=== PATIENT | male | born 1955 | race Hispanic/Latino ===

== ENCOUNTER 2017-01-18 14:31 | Emergency (ER) | payer BC, MEDICARE ==
[2017-01-18 14:31] VITALS: BMI 22.6
--- NOTE | 2017-01-18 15:33 | ED PDOC ---
Arrival/HPI - General Chief Complaint: Trauma Time Seen by Provider: 01/18/17 14:36 Historian: Patient - History of Present Illness Narrative History of Present Illness (Text): 01/18/17 15:15 A 61 year old male, whose past medical history includes CVA and anxiety, presents to the emergency department complaining of multiple falls for past several days. Patient reports he fell onto right side, injuring right wrist. Patient notes he began experiencing right sided-weakness, multiple contractions , and tingling to right arms and hands. Patient also has healing bed sore. Denies of any fever, chills, nausea, vomiting, abdominal pain, chest pain, shortness of breath, cough, leg pain, hip pain, knee pain, or any other complaints. Also, patient mentions he does not take any bloodthinners and is a frequent smoker. Patient mentions also having nurse aide that visits his home, and sometimes his son comes, but normally during the evening. PMD: Dr. Capps Time/Duration: < week (several days) Past Medical History - Provider Review Nursing Documentation Reviewed: Yes - Infectious Disease Hx of Infectious Diseases: None - Tetanus Immunization Tetanus Immunization: Unknown - Past Medical History Past Medical History: No Previous - Cardiac Hx Cardiac Disorders: No - Pulmonary Hx Respiratory Disorders: Yes Other/Comment: SMOKER - Neurological HX Cerebrovascular Accident: Yes - HEENT Hx HEENT Disorder: No - Renal Hx Renal Disorder: No - Endocrine/Metabolic Hx Endocrine Disorders: No - Hematological/Oncological Hx Blood Disorders: No - Integumentary Hx Dermatological Disorder: Yes Other/Comment: MULTIPLE ABRASIONS - Musculoskeletal/Rheumatological Hx Back Pain: Yes Hx Unsteady Gait: Yes - Gastrointestinal Hx Gastrointestinal Disorders: No - Genitourinary/Gynecological Hx Genitourinary Disorders: No - Psychiatric Hx Anxiety: Yes Hx Substance Use: No - Surgical History Hx Orthopedic Surgery: Yes (L ACL) - Anesthesia Hx Anesthesia: No - Suicidal Assessment Feels Threatened In Home Enviroment: No Family/Social History - Physician Review Nursing Documentation Reviewed: Yes Family/Social History: No Known Family HX Smoking Status: Heavy Smoker > 10 Cigarettes Daily Hx Alcohol Use: Yes (2 beers daily) Hx Substance Use: No Allergies/Home Meds Allergies/Adverse Reactions: Allergies Sulfa (Sulfonamide Antibiotics) Allergy (Verified 01/18/17 14:50) RASH Home Medications: Home Meds Medication Instructions Recorded Confirmed Carbamazepine [Carbamazepine] 100 mg PO BID 01/18/17 01/18/17 Cholecalciferol (Vitamin D3) 1 cap PO DAILY 01/18/17 01/18/17 [Vitamin D3] Folic Acid 1 mg PO DAILY 01/18/17 01/18/17 Gabapentin [Neurontin] 300 mg PO HS 01/18/17 01/18/17 Metoprolol Tartrate [Lopressor] 50 mg PO DAILY 01/18/17 01/18/17 Mirtazapine [Remeron] 15 mg PO DAILY 01/18/17 01/18/17 Tamsulosin [Flomax] 1 cap PO DAILY 01/18/17 01/18/17 Thiamine Mononitrate [Vitamin B-1] 1 tab PO DAILY 01/18/17 01/18/17 Venlafaxine [Effexor] 37.5 mg PO DAILY 01/18/17 01/18/17 Review of Systems - Physician Review All systems were reviewed & negative as marked: Yes - Review of Systems Constitutional: absent: Fevers, Other (no head trauma) Respiratory: absent: SOB, Cough Cardiovascular: absent: Chest Pain Gastrointestinal: absent: Abdominal Pain, Nausea, Vomiting Musculoskeletal: Joint Swelling (right wrist injury s/p fall). absent: Back Pain, Neck Pain, Other (no hip pain, leg pain, or knee pain) Neurological: Other (weakness to right side and tingling to right arms and legs) Physical Exam Vital Signs Reviewed: Yes Vital Signs Temp Pulse Resp BP Pulse Ox 01/18/17 18:21 19 97 01/18/17 18:03 75 18 105/69 98 01/18/17 14:58 98.7 F 80 16 107/74 96 Temperature: Afebrile Blood Pressure: Normal Pulse: Regular Respiratory Rate: Normal Appearance: Positive for: Cachectic Pain Distress: None Mental Status: Positive for: Alert and Oriented X 3 - Systems Exam Head: Present: Other (no head trauma) Neck: No: Other (no tenderness) Respiratory/Chest: Present: Wheezes (scattered wheezing) Back: No: Other (no tenderness) Upper Extremity: Present: Normal ROM (right hand), Swelling (right wrist), Other (contractions to left arm; left elbow wound that is dress; multiple abrasions to left arm) Lower Extremity: Present: Normal ROM (hips), Other (contractions to left leg). No: Deformity (no deformity to right wrist) Medical Decision Making ED Course and Treatment: 01/18/17 15:21 Impression: 61 year old male with right wrist injury. Physical exam shows no head trauma; patient appears cachectic; contractions to left leg and arm; full ROM to right hand; tenderness to right wrist but no deformity; full ROM of hips ; scattered wheezing; no tenderness to back/neck; left elbow wound dressed, multiple abrasions to left arm. Plan: -- Right Wrist X-Ray -- Labs -- Urinalysis -- Urine Culture -- Rehab Services -- Reassess and disposition Prior Visits: Notes and results from previous visits were reviewed. Patient was last seen in the emergency department on 03/07/2014 for left-sided weakness. Patient was admitted. Progress Notes: 01/18/2017 15:46 Right Wrist X-Ray IMPRESSION: Normal right wrist radiographs. Dictator: Matthew Beard MD - Lab Interpretations Lab Results: 01/18/17 15:22 01/18/17 15:22 Lab Results 01/18/17 15:22: Prealbumin 22.5 01/18/17 15:22: Sodium 135, Potassium 4.1, Chloride 99, Carbon Dioxide 30, Anion Gap 10, BUN 12, Creatinine 0.5 L, Est GFR ( Amer) > 60, Est GFR ( Non-Af Amer) > 60, Random Glucose 99, Calcium 8.8, Total Bilirubin 0.6, AST 20, ALT 24, Alkaline Phosphatase 143 H, Total Protein 6.7, Albumin 3.7, Globulin 3.0 , Albumin/Globulin Ratio 1.2 01/18/17 15:22: APTT 30.4 01/18/17 15:22: WBC 10.1 D, RBC 3.35 L, Hgb 9.5 L, Hct 30.4 L, MCV 90.7, MCH 28.4, MCHC 31.3, RDW 16.5 H, Plt Count 341, MPV 9.6, Gran % 68.5 H, Lymph % ( Auto) 19.6 L, [place] % (Auto) 10.9 H, Eos % (Auto) 0.9 L, Baso % (Auto) 0.1, Gran # 6.90 H, Lymph # 2.0, [place] # 1.1 H, Eos # 0.1, Baso # 0.01 I have reviewed the lab results: Yes - RAD Interpretation Radiology Orders: 01/18/17 15:10 WRIST, RIGHT 3 VIEWS [RAD] Stat - Scribe Statement The provider has reviewed the documentation as recorded by the Scribe Lela Rice Provider Scribe Attestation: All medical record entries made by the Scribe were at my direction and personally dictated by me. I have reviewed the chart and agree that the record accurately reflects my personal performance of the history, physical exam, medical decision making, and the department course for this patient. I have also personally directed, reviewed, and agree with the discharge instructions and disposition. Disposition/Present on Arrival - Present on Arrival Any Indicators Present on Arrival: No History of DVT/PE: No History of Uncontrolled Diabetes: No Urinary Catheter: No History of Decub. Ulcer: No History Surgical Site Infection Following: None - Disposition Have Diagnosis and Disposition been Completed?: Yes Diagnosis: Fall, Wrist injury Disposition: HOME/ ROUTINE Disposition Time: 18:30 Patient Plan: Discharge Condition: IMPROVED Discharge Instructions (ExitCare): Wrist Injury (ED), Fall Prevention for Older Adults (GEN) Additional Instructions: please followup with home health care nursing agency. you should also request a wound care nurse to make recommendations or see a wound care doctor regarding your elbow wound. Referrals: Zoya Capps DO [Primary Care Provider] - Follow up with primary Forms: [facility] (K[place]akh)
[2017-01-18 15:34] VITALS: TEMP 98.7
[2017-01-18 15:34] LABS: BASO # 0.01 K/mm3 (0.0-2.0); BASO % 0.1 % (0.0-3.0); EOS # 0.1 (0.0-0.7); EOS % 0.9 % (1.5-5.0); GRAN # 6.9 (1.4-6.5); GRAN % 68.5 % (50.0-68.0); HEMATOCRIT 30.4 % (42.0-52.0); LYMPH % 19.6 % (22.0-35.0); MEAN CELL VOLUME 90.7 fl (80.0-105.0); MEAN CORPUSCULAR HEMOGLOBIN 28.4 pg (25.0-35.0); MEAN CORPUSCULAR HGB CONC 31.3 g/dl (31.0-37.0); MEAN PLATELET VOLUME 9.6 fl (7.0-11.0); MONO # 1.1 (0.1-0.6); MONO % 10.9 % (1.0-6.0); RED CELL DISTRIBUTION WIDTH 16.5 % (11.5-14.5); WHITE BLOOD COUNT 10.1 10^3/ul (4.5-11.0)
[2017-01-18 15:42] LABS: ALB/GLOB RATIO 1.2 (1.1-1.8); ALKALINE PHOSPHATASE 143 U/L (38-126); ALT/SGPT 24 U/L (7-56); AST/SGOT 20 U/L (17-59); BILIRUBIN,TOTAL 0.6 mg/dL (0.2-1.3); BLOOD UREA NITROGEN 12 mg/dL (7-21); CALCIUM 8.8 mg/dL (8.4-10.5); CARBON DIOXIDE 30 mmol/L (21-33); CHLORIDE 99 mmol/L (98-107); GFR AFRICAN-AMERICAN > 60; GLUCOSE,RANDOM 99 mg/dL (70-110); POTASSIUM 4.1 mmol/L (3.6-5.0); SODIUM 135 mmol/L (132-148); TOTAL PROTEIN 6.7 g/dL (5.8-8.3)
--- NOTE | 2017-01-18 15:48 | RAD ---
PROCEDURE: Right Wrist Radiographs. HISTORY: fall COMPARISON: None. FINDINGS: BONES: Normal. No fracture. JOINTS: Normal. No dislocation. SOFT TISSUES: Normal. OTHER FINDINGS: None. IMPRESSION: Normal right wrist radiographs.
[2017-01-18 18:04] VITALS: BP 105/69; PULSE 75
[2017-01-18 18:22] VITALS: RESP 19; O2SAT 97
== END 2017-01-18 18:21 | disposition home or self-care (01) ==
LOC: ED 14:31
DX: S69.91XA Unspecified injury of right wrist, hand and finger(s), initial encounter (principal); W19.XXXA Unspecified fall, initial encounter; R29.6 Repeated falls; F17.210 Nicotine dependence, cigarettes, uncomplicated; Z86.73 Personal history of transient ischemic attack (TIA), and cerebral infarction without residual deficits

== ENCOUNTER 2017-04-02 15:05 | Inpatient (IN) | payer MEDICARE ==
[2017-04-02 15:17] VITALS: BMI 15.2
[2017-04-02] MEDS ORDERED: Sodium Chloride 0.9% 1,000 ML IV STA (15:38)
[2017-04-02] MEDS ORDERED: Morphine 2 mg/ml ISec IVP STA ×2 (15:39→17:48)
--- NOTE | 2017-04-02 15:44 | ED PDOC ---
Arrival/HPI - General Chief Complaint: GI Problem Time Seen by Provider: 04/02/17 15:29 Historian: Patient, Family (daughter) - History of Present Illness Narrative History of Present Illness (Text): 04/02/17 15:39 61 year old male, whose medical history includes CVA, presents to the emergency department complaining of constant abdominal pain rated a 7/10 for 2 days. Patient also complains of nausea and induces himself to vomit to relieve himself. Since the pain began, the patient reports decreased PO intake. Patient denies any fevers, chills, chest pain, shortness of breath, diarrhea, dark/ bloody stool, headache, dizziness, or any other complaint. Patient also complains of spontaneous spasms of the right knee/leg that began 3 days ago. Patient currently lives with son. While in the emergency department, patient is with daughter, who checks up on him regularly. Patient/family suspect Opioid withdrawal due to last Percocet use being 2 days ago. PMD: Dr. Capps Neurologist: Dr. Ezra Banks 04/02/17 20:40 pt is now wheel chair bound pt with left sided weakness pt lives with his son Time/Duration: < week (2 days) Symptom Onset: Gradual Symptom Course: Unchanged Severity Level: 8, Severe Activities at Onset: Rest Context: Home Past Medical History - Provider Review Nursing Documentation Reviewed: Yes - Travel History Have you recently traveled outside [place] w/in the past 3 mons?: No - Past History Past History: No Previous - Infectious Disease Hx of Infectious Diseases: None - Tetanus Immunization Tetanus Immunization: Unknown - Past Medical History Past Medical History: No Previous - Cardiac Hx Cardiac Disorders: No - Pulmonary Hx Respiratory Disorders: No - Neurological HX Cerebrovascular Accident: Yes - HEENT Hx HEENT Disorder: No - Renal Hx Renal Disorder: No - Endocrine/Metabolic Hx Endocrine Disorders: No - Hematological/Oncological Hx Blood Disorders: No - Integumentary Hx Dermatological Disorder: No Other/Comment: multipleburn areas - Musculoskeletal/Rheumatological Hx Back Pain: Yes Hx Unsteady Gait: Yes Other/Comment: Restless leg syndrome - Gastrointestinal Hx Gastrointestinal Disorders: No - Genitourinary/Gynecological Hx Prostate Problems: Yes - Psychiatric Hx Anxiety: Yes Hx Substance Use: No - Surgical History Hx Orthopedic Surgery: Yes (left knee) - Anesthesia Hx Anesthesia: No - Suicidal Assessment Feels Threatened In Home Enviroment: No Family/Social History - Physician Review Nursing Documentation Reviewed: Yes Family/Social History: Unknown Family HX Smoking Status: Heavy Smoker > 10 Cigarettes Daily Hx Alcohol Use: Yes (2 beers daily) Hx Substance Use: No Hx Substance Use Treatment: No Allergies/Home Meds Allergies/Adverse Reactions: Allergies Sulfa (Sulfonamide Antibiotics) Allergy (Verified 01/18/17 14:50) RASH Home Medications: Home Meds Medication Instructions Recorded Confirmed Carbamazepine [Carbamazepine] 100 mg PO BID 01/18/17 04/02/17 Folic Acid 1 mg PO DAILY 01/18/17 04/02/17 Gabapentin [Neurontin] 300 mg PO HS 01/18/17 04/02/17 Metoprolol Tartrate [Lopressor] 50 mg PO DAILY 01/18/17 04/02/17 Mirtazapine [Remeron] 15 mg PO DAILY 01/18/17 04/02/17 Tamsulosin [Flomax] 1 cap PO DAILY 01/18/17 04/02/17 Venlafaxine [Effexor] 37.5 mg PO DAILY 01/18/17 04/02/17 Review of Systems - Physician Review All systems were reviewed & negative as marked: Yes - Review of Systems Constitutional: Normal. absent: Fevers, Night Sweats Eyes: Normal ENT: Normal Respiratory: Normal. absent: SOB Cardiovascular: Normal. absent: Chest Pain Gastrointestinal: Abdominal Pain, Nausea, Vomiting, Appetite Changes (decreased PO intake). absent: Stool Changes, Diarrhea Genitourinary Male: Normal Musculoskeletal: Normal Skin: Normal Neurological: absent: Headache, Dizziness Endocrine: Normal Hemo/Lymphatic: Normal Psychiatric: Normal Physical Exam Vital Signs Reviewed: Yes Vital Signs Temp Pulse Resp BP Pulse Ox 04/02/17 19:29 80 18 100/61 99 04/02/17 18:17 98.9 F 84 18 110/79 98 04/02/17 15:18 99.0 F 117 H 18 115/67 99 Temperature: Afebrile Blood Pressure: Normal Pulse: Tachycardic Respiratory Rate: Normal Appearance: Positive for: Well-Appearing, Ill-Appearing, Other (uncomfortable, resting in bed, alert/awake, GCS = 15, oriented x 3, NAD; frail appearing) Pain Distress: None Mental Status: Positive for: Alert and Oriented X 3 - Systems Exam Head: Present: Atraumatic, Normocephalic, Other (bi-temporal wasting noted) Pupils: Present: PERRL Extroacular Muscles: Present: EOMI Conjunctiva: Present: Normal Ears: Present: Normal Mouth: Present: Dry, Other (poor dentitions, dry oral mucosa, uvula/tongue are midline, no exudate/lesions) Pharnyx: Present: Normal Nose (External): Present: Atraumatic Nose (Internal): Present: Normal Inspection Neck: Present: Normal Range of Motion, Trachea Midline. No: MIDLINE TENDERNESS Respiratory/Chest: Present: Clear to Auscultation, Good Air Exchange, Other ( CTA b/l, no w/r/r, no accessory muscle use noted, no tachypenia). No: Respiratory Distress, Accessory Muscle Use Cardiovascular: Present: Regular Rate and Rhythm, Normal S1, S2. No: Murmurs Abdomen: Present: Tenderness, Normal Bowel Sounds, Other (+ mild mid abd tenderness, no hurd's sign, no mcburney's point tenderness, no rebound/ guarding/rigidity). No: Distention, Peritoneal Signs Back: Present: Normal Inspection. No: CVA Tenderness Upper Extremity: Present: Normal Inspection, Normal ROM, NORMAL PULSES, Neurovascularly Intact, Other (decr strength to left arm (prior CVA)). No: Cyanosis, Edema Lower Extremity: Present: Normal Inspection, NORMAL PULSES, Normal ROM, Neurovascularly Intact, Capillary Refill < 2 s, Other (decr ROM/strength 4+/5 left leg; + intermittent spasms noted to b/l lower ext; neurovasc intact b/l). No: Edema Neurological: Present: GCS=15, CN II-XII Intact, Speech Normal Skin: Present: Warm, Dry, Normal Color, Other (cap refill~1 sec, no ulcerations , no petechiae). No: Rashes Psychiatric: Present: Alert, Oriented x 3, Normal Insight, Normal Concentration Medical Decision Making ED Course and Treatment: 04/02/17 15:40 Impression: 61 year old male presents to the emergency department complaining of abdominal pain, nausea, and vomiting. I have considered all differential diagnoses regarding patients chief medical complaints/clinical findings which include but are not limited to: r/o obstruction, infection, r/o uti, r/o appy, r/o pancreatitis Plan: -- CT scan of the abdomen and pelvis with IV contrast -- Chest xray -- EKG -- Urinalysis -- BVG -- Labs -- Pepcid, Morphine, Zofran, Sodium Chloride IV fluids -- Reassess and disposition Progress Notes: 04/02/17 20:16 pt is feeling intermittent abd pain after morphine pt felt improved pt is expressing hungry and would like to EAT with abnl CT, i contacted surgery/surg resident is at bedside, evaluated patient , recommend medicine admission and will continue to monitor patient as consultants; to keep pt NPO paging Dr Lantigua (medical service manager enterprise content management) 04/02/17 20:31 Dr Lantigua contacted, made aware, agrees with admission; would like to consult GI - Dr Ozuna as well, ok with consult with surgery - dr Toscano pt is made aware of his medical results agrees with admission Re-evaluation Time: 20:22 Reassessment Condition: Improving,but remains with symptoms - Critical Care Critical Care Minutes: 45 minutes Critical Care Time: Excluding Proc Time - Lab Interpretations Lab Results: 04/02/17 16:08 04/02/17 17:28 Lab Results 04/02/17 17:28: Sodium 137, Chloride 97 L, Potassium 3.9, Carbon Dioxide 29, Anion Gap 15, BUN 20, Creatinine 0.6 L, Est GFR ( Amer) > 60, Est GFR ( Non-Af Amer) > 60, Random Glucose 100, Calcium 9.0, Total Bilirubin 0.3, AST 20 , ALT 19, Alkaline Phosphatase 107, Total Protein 6.5, Albumin 3.6, Globulin 2.9 , Albumin/Globulin Ratio 1.3, Lipase 197 04/02/17 16:08: PT 11.2, INR 0.98, APTT 32.5 04/02/17 16:08: WBC 7.0 D, RBC 4.03, Hgb 11.3 L, Hct 35.3 L, MCV 87.6 D, MCH 28.0, MCHC 32.0, RDW 17.7 H, Plt Count 478 H, MPV 9.4, Gran % 49.7 L, Lymph % ( Auto) 31.8, [place] % (Auto) 18.0 H, Eos % (Auto) 0.4 L, Baso % (Auto) 0.1, Gran # 3.45, Lymph # 2.2, [place] # 1.3 H, Eos # 0.0, Baso # 0.01 04/02/17 16:05: pO2 156 H, VBG pH 7.53 H, VBG pCO2 41.0, VBG HCO3 34.3 H, VBG Total CO2 35.6 H, VBG O2 Sat (Calc) 97.8 H, VBG Base Excess 10.5 H, VBG Potassium 3.8, Sodium 136.0, Chloride 97.0 L, Glucose 135 H, Lactate 2.7 H, FiO2 21.0, Venous Blood Potassium 3.8 I have reviewed the lab results: Yes Interpretation: Abnormal lab values (elevatd lactic acid) - RAD Interpretation Narrative RAD Interpretations (Text): 04/02/2017 16:57:54 Chest PA and lateral FINDINGS: LINES AND TUBES: None. LUNG AND PLEURA: The lungs are hyperinflated and there is peribronchial thickening with chronic changes in both lungs. HEART AND MEDIASTINUM: The heart is not enlarged. The hilar and mediastinal contours are within normal limits. SKELETAL STRUCTURES: The bony structures are within normal limits for the patient's age. VISUALIZED UPPER ABDOMEN: Normal. OTHER FINDINGS: None. IMPRESSION: No active pulmonary disease. COPD. 04/02/2017 19:56:00 CT Abdomen and Pelvis With Intravenous Contrast FINDINGS: Artifacts: Streak artifact degrades image quality. Lower thorax: Lung bases are hyperinflated. There is minimal atelectasis/scarring. Heart size is normal. ABDOMEN: Liver: unremarkable Gallbladder and bile ducts: unremarkable Pancreas: Pancreas is mildly atrophic. Spleen: unremarkable Adrenals: unremarkable Kidneys and ureters: unremarkable Stomach and bowel: Fundus of the stomach is incompletely distended. Antrum descending duodenum and proximal transverse duodenum are dilated. There is caliber change at the level of the mesenteric vessels. Distal duodenum and proximal jejunum are collapsed. There is a focally dilated small bowel loop in the right mid to lower abdomen, images 51-60, series 601. Configuration raises the possibility of internal hernia. There is fluid and air in distal small bowel in the right lower quadrant. Terminal ileum is unremarkable. Appendix is not visualized.There is no pericecal inflammation. Colon is incompletely distended which limits evaluation. Appendix: See stomach and bowel PELVIS: Bladder: Bladder is partially distended. There is mild bladder wall thickening. Reproductive: Seminal vesicles and prostate are unremarkable. ABDOMEN and PELVIS: Intraperitoneal space: There is no free air or free fluid. Bones/joints: Bony structures are osteopenic. There are degenerative changes. There is sclerosis at the sacroiliac joints. Soft tissues: There is a paucity of body fat. Vasculature: There are atherosclerotic calcifications in the aorta. There is asymmetric fusiform infrarenal mild dilatation. Maximal diameter is approximately 3 cm. Dilatation does not extend into the iliacs. There is noncalcified mural thrombus. There is no leak. Lymph nodes: There is no pathologic adenopathy. IMPRESSION: SMA syndrome; possible internal hernia containing small bowel in the right flank/lower quadrant; atherosclerotic disease with mild dilatation of the infrarenal abdominal aorta, 3 cm maximal diameter; no acute solid visceral abnormality Additional nonemergent findings as described above. 04/02/17 20:04 Radiology Orders: 04/02/17 15:38 ABD & PELVIS IV CONTRAST ONLY [CT] Stat 04/02/17 15:39 CHEST TWO VIEWS (PA/LAT) [RAD] Stat Director Of Student Life: Radiologist - EKG Interpretation EKG Interpretation (Text): 04/02/17 19:43 Sinus tach at 105 bpm, normal axis, no ectopy, diffuse low voltage inf leads, non-specific st-t changes, BORDERLINE EKG; unchanged compare with old ekg 03/201404/02/17 20:32 Interpreted by ED Physician: Yes Type: 12 lead EKG Comparison: Similar to previous EKG - Medication Orders Current Medication Orders: Discontinued Medications Diazepam (Valium) 5 mg PO ONCE ONE Stop: 04/02/17 17:49 Last Admin: 04/02/17 18:26 Dose: 5 mg Famotidine (Pepcid) 20 mg IVP STAT STA Stop: 04/02/17 15:39 Last Admin: 04/02/17 16:19 Dose: 20 mg IVP Administration Document 04/02/17 16:19 EQ (Rec: 04/02/17 16:19 EQ [id number]) Charges for Administration # of IVP Administrations 1 Sodium Chloride (Sodium Chloride 0.9%) 1,000 mls @ 1,000 mls/hr IV .Q1H STA Stop: 04/02/17 16:37 Last Admin: 04/02/17 16:18 Dose: 1,000 mls/hr eMAR Start Stop Document 04/02/17 16:18 EQ (Rec: 04/02/17 16:18 EQ [id number]) Intravenous Solution Start Date 04/02/17 Start Time 16:18 Morphine Sulfate (Morphine) 4 mg IVP STAT STA Stop: 04/02/17 15:40 Last Admin: 04/02/17 16:19 Dose: MAR Pain Assessment Document 04/02/17 16:19 EQ (Rec: 04/02/17 16:19 EQ [id number]) Pain Reassessment Is this a pain reassessment? No Sleep Is patient sleeping during reassessment? No Presence of Pain Presence of Pain Yes Pain Scale Used Pain Scale Used Numeric Morphine Sulfate (Morphine) 4 mg IVP STAT STA Stop: 04/02/17 16:02 Last Admin: 04/02/17 16:18 Dose: 4 mg IVP Administration Document 04/02/17 16:18 EQ (Rec: 04/02/17 16:18 EQ [id number]) Charges for Administration # of IVP Administrations 1 Morphine Sulfate (Morphine) 4 mg IVP STAT STA Stop: 04/02/17 17:54 Last Admin: 04/02/17 18:26 Dose: 4 mg MAR Pain Assessment Document 04/02/17 18:26 EQ (Rec: 04/02/17 18:26 EQ [id number]) Pain Reassessment Is this a pain reassessment? No Sleep Is patient sleeping during reassessment? No Presence of Pain Presence of Pain Yes IVP Administration Document 04/02/17 18:26 EQ (Rec: 04/02/17 18:26 EQ [id number]) Charges for Administration # of IVP Administrations 1 Ondansetron HCl (Zofran Inj) 4 mg IVP STAT STA Stop: 04/02/17 15:39 Last Admin: 04/02/17 16:18 Dose: 4 mg IVP Administration Document 04/02/17 16:18 EQ (Rec: 04/02/17 16:18 EQ [id number]) Charges for Administration # of IVP Administrations 1 - Scribe Statement The provider has reviewed the documentation as recorded by the Vita Hayward Provider Scribe Attestation: All medical record entries made by the Scribe were at my direction and personally dictated by me. I have reviewed the chart and agree that the record accurately reflects my personal performance of the history, physical exam, medical decision making, and the department course for this patient. I have also personally directed, reviewed, and agree with the discharge instructions and disposition. Disposition/Present on Arrival - Present on Arrival Any Indicators Present on Arrival: No History of DVT/PE: No History of Uncontrolled Diabetes: No Urinary Catheter: No History of Decub. Ulcer: No History Surgical Site Infection Following: None - Disposition Have Diagnosis and Disposition been Completed?: Yes Diagnosis: Abdominal pain, Failure to thrive in adult, SMAS (superior mesenteric artery syndrome), Partial small bowel obstruction, Leg muscle spasm Disposition: HOSPITALIZED Disposition Time: 20:05 Patient Plan: Admission Condition: STABLE Forms: [email or web address] (Malagasy)
[2017-04-02] MEDS ORDERED: Morphine 5 MG/ML SYRINGE IVP STA (16:01)
[2017-04-02 16:52] LABS: BASO # 0.01 K/mm3 (0.0-2.0); BASO % 0.1 % (0.0-3.0); EOS % 0.4 % (1.5-5.0); GRAN # 3.45 (1.4-6.5); GRAN % 49.7 % (50.0-68.0); HEMOGLOBIN 11.3 g/dL (14.0-18.0); LYMPH # 2.2 (1.2-3.4); LYMPH % 31.8 % (22.0-35.0); MEAN CELL VOLUME 87.6 fl (80.0-105.0); MEAN PLATELET VOLUME 9.4 fl (7.0-11.0); MONO # 1.3 (0.1-0.6); RBC 4.03 10^6/uL (3.5-6.1); RED CELL DISTRIBUTION WIDTH 17.7 % (11.5-14.5)
--- NOTE | 2017-04-02 16:59 | RAD ---
HISTORY: COMPARISON: 03/09/2014 TECHNIQUE: Chest PA and lateral FINDINGS: LINES AND TUBES: None. LUNG AND PLEURA: The lungs are hyperinflated and there is peribronchial thickening with chronic changes in both lungs. HEART AND MEDIASTINUM: The heart is not enlarged. The hilar and mediastinal contours are within normal limits. SKELETAL STRUCTURES: The bony structures are within normal limits for the patient's age. VISUALIZED UPPER ABDOMEN: Normal. OTHER FINDINGS: None. IMPRESSION: No active pulmonary disease. COPD.
[2017-04-02 17:00] LABS: VENOUS BLOOD GAS BASE EXCESS 10.5 mmol/L (0.0-2.0); VENOUS BLOOD GAS PO2 156 mm/Hg (30-55); VENOUS BLOOD PH 7.53 (7.32-7.43)
[2017-04-02 17:11] LABS: INR 0.98 (0.93-1.08); PARTIAL THROMBOPLASTIN TIME 32.5 Seconds (25.1-36.5); PROTHROMBIN TIME 11.2 SECONDS (9.4-12.5)
[2017-04-02 17:51] LABS: ALB/GLOB RATIO 1.3 (1.1-1.8); ALBUMIN 3.6 g/dL (3.0-4.8); ALT/SGPT 19 U/L (7-56); AST/SGOT 20 U/L (17-59); BLOOD UREA NITROGEN 20 mg/dL (7-21); GFR AFRICAN-AMERICAN > 60; GFR NON-AFRICAN AMERICAN > 60; LIPASE 197 U/L (23-300)
[2017-04-02] MEDS ORDERED: Morphine 4 mg/ml ISec IVP STA (17:53)
[2017-04-02] MEDS ORDERED: Iohexol 350 MG/100 ML VIAL ONE (18:26)
--- NOTE | 2017-04-02 19:56 | CT ---
EXAM: CT Abdomen and Pelvis With Intravenous Contrast EXAM DATE/TIME: 04/02/2017 3:38 PM CLINICAL HISTORY: 61 years old, male; Pain; Abdominal pain; Periumbilical; Additional info: Mid abd pain, n/v, no appetite TECHNIQUE: Axial computed tomography images of the abdomen and pelvis with intravenous contrast. All CT scans at this facility use one or more dose reduction techniques, viz.: automated exposure control; ma/kV adjustment per patient size (including targeted exams where dose is matched to indication; i.e. head); or iterative reconstruction technique. Coronal and sagittal reformatted images were created and reviewed. CONTRAST: 100 mL of omnipaque 350 administered intravenously. COMPARISON: There are no prior studies for comparison. FINDINGS: Artifacts: Streak artifact degrades image quality. Lower thorax: Lung bases are hyperinflated. There is minimal atelectasis/scarring. Heart size is normal. ABDOMEN: Liver: unremarkable Gallbladder and bile ducts: unremarkable Pancreas: Pancreas is mildly atrophic. Spleen: unremarkable Adrenals: unremarkable Kidneys and ureters: unremarkable Stomach and bowel: Fundus of the stomach is incompletely distended. Antrum descending duodenum and proximal transverse duodenum are dilated. There is caliber change at the level of the mesenteric vessels. Distal duodenum and proximal jejunum are collapsed. There is a focally dilated small bowel loop in the right mid to lower abdomen, images 51-60, series 601. Configuration raises the possibility of internal hernia. There is fluid and air in distal small bowel in the right lower quadrant. Terminal ileum is unremarkable. Appendix is not visualized.There is no pericecal inflammation. Colon is incompletely distended which limits evaluation. Appendix: See stomach and bowel PELVIS: Bladder: Bladder is partially distended. There is mild bladder wall thickening. Reproductive: Seminal vesicles and prostate are unremarkable. ABDOMEN and PELVIS: Intraperitoneal space: There is no free air or free fluid. Bones/joints: Bony structures are osteopenic. There are degenerative changes. There is sclerosis at the sacroiliac joints. Soft tissues: There is a paucity of body fat. Vasculature: There are atherosclerotic calcifications in the aorta. There is asymmetric fusiform infrarenal mild dilatation. Maximal diameter is approximately 3 cm. Dilatation does not extend into the iliacs. There is noncalcified mural thrombus. There is no leak. Lymph nodes: There is no pathologic adenopathy. IMPRESSION: SMA syndrome; possible internal hernia containing small bowel in the right flank/lower quadrant; atherosclerotic disease with mild dilatation of the infrarenal abdominal aorta, 3 cm maximal diameter; no acute solid visceral abnormality Additional nonemergent findings as described above.
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
[2017-04-02] MEDS ORDERED: Iohexol 240 (50 ml) ONE (22:09)
[2017-04-02] MEDS: HYDROmorphone 0.5 mg/0.5 ml ISec IVP PRN (23:36)
--- NOTE | 2017-04-03 02:33 | CT ---
EXAM: CT Abdomen and Pelvis With Intravenous Contrast CLINICAL HISTORY: 61 years old, male; Signs and symptoms; Constipation; Additional info: Sbo TECHNIQUE: Axial computed tomography images of the abdomen and pelvis with intravenous contrast. All CT scans at this facility use one or more dose reduction techniques, viz.: automated exposure control; ma/kV adjustment per patient size (including targeted exams where dose is matched to indication; i.e. head); or iterative reconstruction technique. 582 images are submitted. Oral contrast was administered. Coronal and sagittal reformatted images were created and reviewed. CONTRAST: 2.5 mL of OMNI administered intravenously. COMPARISON: CT - ABD PELVIS IV CONTRAST ONLY 2017-04-02 18:40 FINDINGS: Lower thorax: There is bibasilar atelectasis. Minimal pericardial effusion. Right lower lobe calcified pulmonary granuloma. ABDOMEN: Liver: Unremarkable. No mass. Gallbladder and bile ducts: Unremarkable. No ductal dilation. Pancreas: Unremarkable. No mass. No ductal dilation. Spleen: Unremarkable. No splenomegaly. Adrenals: Unremarkable. No mass. Kidneys and ureters: There are contrast within bilateral renal collecting system which can obscure renal stones. No hydronephrosis. Stomach and bowel: Nonspecific gastric thickening likely due to under distention. Correlation with clinical data is recommended if gastritis is suspected. No evidence of small bowel obstruction. Appendix: No findings to suggest acute appendicitis. PELVIS: Bladder: Bladder is filled with contrast. Reproductive: Unremarkable. ABDOMEN and PELVIS: Intraperitoneal space: Unremarkable. No free air. No significant fluid collection. Bones/joints: Multilevel vacuum degenerative disc disease. Right-sided thoracolumbar scoliosis. No acute fracture. No dislocation. Soft tissues: Unremarkable. Vasculature: There is abdominal aortic aneurysm measuring 3.0 cm. Limited due to lack of intravenous contrast. No aortic aneurysm rupture is noted. Lymph nodes: Unremarkable. No enlarged lymph nodes. IMPRESSION: 1. No acute abnormality on this noncontrast CT examination of the abdomen and pelvis .
[2017-04-03] MEDS: HYDROmorphone 0.5 mg/0.5 ml ISec IVP PRN ×4 (06:27→21:26)
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
[2017-04-03 07:56] LABS: BASO # 0.03 K/mm3 (0.0-2.0); BASO % 0.4 % (0.0-3.0); EOS # 0.2 (0.0-0.7); EOS % 2.9 % (1.5-5.0); GRAN # 3.02 (1.4-6.5); GRAN % 36.1 % (50.0-68.0); HEMOGLOBIN 9.7 g/dL (14.0-18.0); LYMPH # 3.7 (1.2-3.4); LYMPH % 44.6 % (22.0-35.0); MEAN CELL VOLUME 88.6 fl (80.0-105.0); MEAN CORPUSCULAR HEMOGLOBIN 27.6 pg (25.0-35.0); MEAN CORPUSCULAR HGB CONC 31.1 g/dl (31.0-37.0); MEAN PLATELET VOLUME 9.3 fl (7.0-11.0); MONO # 1.3 (0.1-0.6); RBC 3.52 10^6/uL (3.5-6.1); RED CELL DISTRIBUTION WIDTH 17.7 % (11.5-14.5); WHITE BLOOD COUNT 8.4 10^3/ul (4.5-11.0)
[2017-04-03 08:08] LABS: ALB/GLOB RATIO 1.3 (1.1-1.8); ALBUMIN 3.5 g/dL (3.0-4.8); ALT/SGPT 20 U/L (7-56); AST/SGOT 26 U/L (17-59); BLOOD UREA NITROGEN 15 mg/dL (7-21); CALCIUM 9.3 mg/dL (8.4-10.5); GFR AFRICAN-AMERICAN > 60; GFR NON-AFRICAN AMERICAN > 60
[2017-04-03] MEDS ORDERED: Iodixanol 320 MG/ML 100 ML BOTTLE IV ONE (13:52)
[2017-04-03] MEDS: Sodium Chloride 0.9% 1,000 ML IV SCH (15:11)
--- NOTE | 2017-04-03 15:23 | CT ---
PROCEDURE: CT Abdomen and Pelvis with contrast HISTORY: r/o ischemic bowel ischemia, r/o sma syndrome. COMPARISON: None. TECHNIQUE: Contrast dose: 100 cc of Visipaque Radiation dose: Total exam DLP = 358 mGy-cm. This CT exam was performed using one or more of the following dose reduction techniques: Automated exposure control, adjustment of the mA and/or kV according to patient size, and/or use of iterative reconstruction technique. FINDINGS: LOWER THORAX: Unremarkable. LIVER: Unremarkable. No gross lesion or ductal dilatation. GALLBLADDER AND BILE DUCTS: Unremarkable. PANCREAS: Unremarkable. No gross lesion or ductal dilatation. SPLEEN: Unremarkable. ADRENALS: Unremarkable. No mass. KIDNEYS AND URETERS: Unremarkable. No hydronephrosis. No solid mass. VASCULATURE: The study was performed in the arterial phase an shows no evidence of SMA occlusion or stenosis. The celiac artery is also patent. There is an infrarenal abdominal aortic aneurysm with a maximum diameter of 31 mm. There is some mural thrombus. BOWEL: The stomach and duodenum are moderately distended. Small droplets of free air can be seen in the anterior pelvis. The findings are suspicious for bowel perforation. The findings were discussed with Dr. Lantigua at 3:10 p.m. The findings are best seen on axial image 125 series 3 APPENDIX: Normal appendix. PERITONEUM: Unremarkable. No free fluid. No free air. LYMPH NODES: Unremarkable. No enlarged lymph nodes. BLADDER: Unremarkable. REPRODUCTIVE: Unremarkable. BONES: No acute fracture. OTHER FINDINGS: None. IMPRESSION: Small droplets of free air in the anterior pelvis. Findings are suspicious for bowel perforation. Small infrarenal abdominal aortic aneurysm. No evidence of SMA occlusion or stenosis
--- NOTE | 2017-04-03 16:02 | CP.PCM.HP ---
<Claudia Mccallum - Last Filed: 04/03/17 15:59> History of Present Illness - History of Present Illness History of Present Illness: Chief complaint: generalized abdominal pain 61 yr male w/ hstory of CVA L side deficits, multiple lou, restless leg syndrome, chronic back pain, & L knee surgery. Pt admitted to [facility] for generalized abdominal pain. Pt was taking percocet at home for chronic back pain and began to feel abdominal pain relieved by self-induced emesis. Pt states that today he feels "very tired." Denies any fever, chills, chest pain, shortness of breath, nausea, vomiting, diarrhea, constipation, or urinary problems. Present on Admission - Present on Admission Any Indicators Present on Admission: No History of DVT/PE: No History of Uncontrolled Diabetes: No Urinary Catheter: No Decubitus Ulcer Present: No Review of Systems - Constitutional Constitutional: As Per HPI - EENT Eyes: As Per HPI Ears: As Per HPI Nose/Mouth/Throat: As Per HPI - Cardiovascular Cardiovascular: As Per HPI - Respiratory Respiratory: As Per HPI - Gastrointestinal Gastrointestinal: As Per HPI - Genitourinary Genitourinary: As Per HPI - Musculoskeletal Musculoskeletal: As Per HPI - Integumentary Integumentary: As Per HPI - Neurological Neurological: As Per HPI - Psychiatric Psychiatric: As Per HPI - Endocrine Endocrine: As Per HPI - Hematologic/Lymphatic Hematologic: As Per HPI Past Patient History - Infectious Disease Hx of Infectious Diseases: None - Tetanus Immunizations Tetanus Immunization: Unknown - Past Social History Smoking Status: Heavy Smoker > 10 Cigarettes Daily Alcohol: None Drugs: Denies Home Situation {Lives}: With Family - CARDIAC Hx Cardiac Disorders: No - PULMONARY Hx Respiratory Disorders: No - NEUROLOGICAL HX Cerebrovascular Accident: Yes - HEENT Hx HEENT Problems: No - RENAL Hx Chronic Kidney Disease: No - ENDOCRINE/METABOLIC Hx Endocrine Disorders: No - HEMATOLOGICAL/ONCOLOGICAL Hx Blood Disorders: No - INTEGUMENTARY Hx Dermatological Problems: No Other/Comment: multipleburn areas - MUSCULOSKELETAL/RHEUMATOLOGICAL Hx Back Pain: Yes Hx Unsteady Gait: Yes Other/Comment: Restless leg syndrome - GASTROINTESTINAL Hx Gastrointestinal Disorders: No - GENITOURINARY/GYNECOLOGICAL Hx Prostate Problems: Yes - PSYCHIATRIC Hx Anxiety: Yes Hx Substance Use: No - SURGICAL HISTORY Hx Orthopedic Surgery: Yes (left knee) - ANESTHESIA Hx Anesthesia: No Meds Allergies/Adverse Reactions: Allergies Allergy/AdvReac Type Severity Reaction Status Date / Time Sulfa (Sulfonamide Allergy RASH Verified 01/18/17 14:50 Antibiotics) Physical Exam - Constitutional Appears: Chronically Ill - Head Exam Head Exam: ATRAUMATIC, NORMAL INSPECTION, NORMOCEPHALIC - Eye Exam Eye Exam: EOMI, Normal appearance, PERRL Pupil Exam: NORMAL ACCOMODATION, PERRL - ENT Exam ENT Exam: Mucous Membranes Moist, Normal Exam - Neck Exam Neck exam: Positive for: Normal Inspection - Respiratory Exam Respiratory Exam: Decreased Breath Sounds, Clear to Auscultation Bilateral - Cardiovascular Exam Cardiovascular Exam: REGULAR RHYTHM, +S1, +S2 - GI/Abdominal Exam GI & Abdominal Exam: Normal Bowel Sounds, Soft. absent: Tenderness Additional comments: abdomen concave. - Extremities Exam Additional comments: L arm contracture. L lower extremity weakness. - Back Exam Back exam: NORMAL INSPECTION - Neurological Exam Neurological exam: Alert, Oriented x3 - Psychiatric Exam Psychiatric exam: Depressed, Flat Affect - Skin Skin Exam: Dry, Intact, Normal Color, Warm Results - Vital Signs Recent Vital Signs: Last Vital Signs Temp 97.8 F 04/03/17 06:00 Pulse 81 04/03/17 06:00 Resp 20 04/03/17 06:00 BP 104/76 04/03/17 06:00 Pulse Ox 97 04/03/17 06:00 - Labs Result Diagrams: 04/03/17 07:30 04/03/17 07:30 Labs: Laboratory Results - last 24 hr 04/03/17 04/03/17 04/03/17 07:30 07:30 07:30 WBC 8.4 RBC 3.52 Hgb 9.7 L Hct 31.2 L MCV 88.6 MCH 27.6 MCHC 31.1 RDW 17.7 H Plt Count 389 MPV 9.3 Gran % 36.1 L Lymph % (Auto) 44.6 H [place] % (Auto) 16.0 H Eos % (Auto) 2.9 Baso % (Auto) 0.4 Gran # 3.02 Lymph # 3.7 H [place] # 1.3 H Eos # 0.2 Baso # 0.03 Sodium 136 Potassium 3.7 Chloride 98 Carbon Dioxide 28 Anion Gap 14 BUN 15 Creatinine 0.5 L Est GFR ( Amer) > 60 Est GFR (Non-Af Amer) > 60 Random Glucose 79 Lactic Acid 1.0 Calcium 9.3 Total Bilirubin 0.4 AST 26 ALT 20 Alkaline Phosphatase 97 Total Protein 6.2 Albumin 3.5 Globulin 2.7 Albumin/Globulin Ratio 1.3 Assessment & Plan (1) Dehydration Status: Acute (2) Chronic back pain Status: Acute (3) Anemia Status: Acute (4) Abdominal pain Status: Acute (5) Failure to thrive in adult Status: Acute (6) Partial small bowel obstruction Status: Acute (7) SMAS (superior mesenteric artery syndrome) Status: Acute - Assessment and Plan (Free Text) Plan: Seizure precautions. VTE/GI prophlyaxis. Nicotine patch ordered. SBO vs. SMA vs. opoid induced constipation. NGT placement per surgery. Consults: GI - Dr. Ozuna Surgery - Dr. Toscano Reviewed: ECG = Sinus tachy, w/ PAC CT angio = small droplets of free air in the anterior pelvis, suspicious for bowel perforation, small infrarenal abd aortic aneurysm, no evidence of SMA, occlusion, stenosis CT abd/pelvis = WNL - Date & Time Date: 04/03/17 Time: 11:30 <Radha Lantigua - Last Filed: 04/03/17 21:28> Results - Vital Signs Recent Vital Signs: Last Vital Signs Temp 97.8 F 04/03/17 06:00 Pulse 81 04/03/17 06:00 Resp 20 04/03/17 06:00 BP 104/76 04/03/17 06:00 Pulse Ox 97 04/03/17 06:00 - Labs Result Diagrams: 04/03/17 07:30 04/03/17 07:30 Labs: Laboratory Results - last 24 hr 04/03/17 04/03/17 04/03/17 07:30 07:30 07:30 WBC 8.4 RBC 3.52 Hgb 9.7 L Hct 31.2 L MCV 88.6 MCH 27.6 MCHC 31.1 RDW 17.7 H Plt Count 389 MPV 9.3 Gran % 36.1 L Lymph % (Auto) 44.6 H [place] % (Auto) 16.0 H Eos % (Auto) 2.9 Baso % (Auto) 0.4 Gran # 3.02 Lymph # 3.7 H [place] # 1.3 H Eos # 0.2 Baso # 0.03 Sodium 136 Potassium 3.7 Chloride 98 Carbon Dioxide 28 Anion Gap 14 BUN 15 Creatinine 0.5 L Est GFR ( Amer) > 60 Est GFR (Non-Af Amer) > 60 Random Glucose 79 Lactic Acid 1.0 Calcium 9.3 Total Bilirubin 0.4 AST 26 ALT 20 Alkaline Phosphatase 97 Total Protein 6.2 Albumin 3.5 Globulin 2.7 Albumin/Globulin Ratio 1.3 Assessment & Plan - Assessment and Plan (Free Text) Plan: 61 yr male w/ hstory of CVA L side deficits, multiple lou, restless leg syndrome, chronic back pain, & L knee surgery. Pt admitted to [facility] for generalized abdominal pain. Pt was taking percocet at home for chronic back pain and began to feel abdominal pain relieved by self-induced emesis. Pt states that today he feels "very tired." Denies any fever, chills, chest pain, shortness of breath, nausea, vomiting, diarrhea, constipation, or urinary problems. pt is seen and examined at bed side , looking comfortable . as per radiologist pt had free air in the abdominal cavity . surgery consult called . d/d with pt, family . gi is also on the case , will f/u
--- NOTE | 2017-04-03 17:25 | CARD ---
APPROVED REPORT EKG Measurement Heart [id number] <Conclusion> Sinus tachycardia with premature atrial complexes Otherwise normal ECG
--- NOTE | 2017-04-03 18:39 | PN ---
DATE: SUBJECTIVE: The patient is admitted with abdominal pain, status post stroke several years ago. He has atrophy of the left leg and is unable to walk. The patient concerned of abdominal pain and inability to eat. This is an acute problem, began several days ago, associated with difficulty to eat. White count is normal, Hemoglobin initially 11.3, now 9.7, platelets normal. Coags normal. SMA-18 normal. The CAT scan showing heavily calcified aorta, rule out internal hernia. Repeat CAT scan with oral contrast failed to show this internal hernia. Rashawn Toscano MD
[2017-04-04] MEDS: HYDROmorphone 0.5 mg/0.5 ml ISec IVP PRN ×5 (03:07→19:36)
--- NOTE | 2017-04-04 06:41 | CP.PCM.PN ---
<Astrid Little - Last Filed: 04/04/17 10:25> Subjective - Date & Time of Evaluation Date of Evaluation: 04/04/17 Time of Evaluation: 07:05 - Subjective Subjective: GI progress note for Dr Ozuna's service Patient with no acute events overnight. Patient states the abdominal pain has improved. Patient tolerated the full liquid diet, denies nausea, vomiting or diarrhea. No bowel movement since yesterday. Objective - Vital Signs/Intake and Output Vital Signs (last 24 hours): Temp Pulse Resp BP Pulse Ox 96.2 F L 65 21 113/73 95 04/04/17 00:00 04/04/17 00:00 04/04/17 00:00 04/04/17 00:00 04/04/17 00:00 - Medications Medications: Current Medications Carbamazepine (Tegretol) 100 mg PO BID [facility] PRN Reason: Protocol Last Admin: 04/03/17 18:31 Dose: 100 mg Folic Acid (Folic Acid) 1 mg PO DAILY [facility] Last Admin: 04/03/17 11:28 Dose: 1 mg Gabapentin (Neurontin) 300 mg PO TID [facility] PRN Reason: Protocol Last Admin: 04/03/17 18:32 Dose: 300 mg Heparin Sodium (Porcine) (Heparin) 5,000 units SC Q12 [facility] PRN Reason: Protocol Last Admin: 04/03/17 21:36 Dose: 5,000 units Hydromorphone HCl (Dilaudid) 0.5 mg IVP Q4H PRN PRN Reason: Pain, moderate (4-7) Last Admin: 04/04/17 03:07 Dose: 0.5 mg Sodium Chloride (Sodium Chloride 0.9%) 1,000 mls @ 75 mls/hr IV .[id number] [facility] Last Admin: 04/03/17 15:11 Dose: 75 mls/hr Mirtazapine (Remeron) 15 mg PO HS [facility] Last Admin: 04/03/17 21:36 Dose: 15 mg Nicotine (Nicoderm Cq) 1 patch TD DAILY [facility] Last Admin: 04/03/17 15:35 Dose: 1 patch Tamsulosin HCl (Flomax) 0.4 mg PO DAILY [facility] Last Admin: 04/03/17 11:27 Dose: 0.4 mg Venlafaxine HCl (Effexor) 37.5 mg PO DAILY [facility] Last Admin: 04/03/17 11:28 Dose: 37.5 mg - Labs Labs: 04/03/17 07:30 04/03/17 07:30 PT 11.2 SECONDS (9.4-12.5) 04/02/17 16:08 INR 0.98 (0.93-1.08) 04/02/17 16:08 APTT 32.5 Seconds (25.1-36.5) 04/02/17 16:08 - Constitutional Appears: No Acute Distress, Cachectic, Chronically Ill - Head Exam Head Exam: ATRAUMATIC, NORMAL INSPECTION, NORMOCEPHALIC - Eye Exam Eye Exam: Normal appearance - ENT Exam ENT Exam: Mucous Membranes Moist - Neck Exam Neck Exam: Normal Inspection - Respiratory Exam Respiratory Exam: Clear to Ausculation Bilateral, NORMAL BREATHING PATTERN. absent: Rales, Wheezes, Respiratory Distress, Stridor - Cardiovascular Exam Cardiovascular Exam: REGULAR RHYTHM, RRR, +S1, +S2. absent: Murmur - GI/Abdominal Exam GI & Abdominal Exam: Soft, Tenderness (luq), Normal Bowel Sounds. absent: Distended, Firm, Guarding, Rigid, Organomegaly, Rebound - Extremities Exam Extremities Exam: Normal Inspection. absent: Pedal Edema - Back Exam Back Exam: NORMAL INSPECTION - Neurological Exam Neurological Exam: Alert, Awake, Oriented x3 - Psychiatric Exam Psychiatric exam: Flat Affect - Skin Skin Exam: Dry, Normal Color, Warm Assessment and Plan - Assessment and Plan (Free Text) Assessment: Patient is a 61 y/o with PMHx of chronic back pain, htn, hld, GERD, CVA with left sided residual weakness presenting with abdominal pain for 2-[address] abdomen with pelvis with iv contrast revealing SMA syndrome; possible internal hernia containing small bowel in the right flank/lower quadrant; atherosclerotic disease with mild dilatation of the infrarenal abdominal aorta, 3 cm maximal diameter. Had another CT with po contrast with no significant finding. Due to high suspicion for ischemic bowel and SMA syndrome, patient underwent CTA revealing small droplets of free air in the anterior pelvis. Findings are suspicious for bowel perforation and small infrarenal abdominal aortic aneurysm. No evidence of SMA occlusion or stenosis. As per PMD patient had EGD in october 2016 revealing severe esophageal candidiasis and AVM of duodenum, unable to complete colonoscopy due to poor prep. Left upper quadrant abdominal pain suspicious for SMA syndrome. Suspicious for bowel perforation Weight loss- based on chart, patient lost over 30 lb in the past 2 years 3 cm Infrarenal abdominal aortic aneurysm on CT htn hld CVA gerd Anemia Plan: - Imaging reviewed by Dr Ozuna, suspicious for SMA syndrome. - Continue with conservative management for now if symptoms worsens patient might need surgery. - Will advance diet as tolerated. - Continue pain meds prn - Continue antiemetics prn - Nutritional support - Will start antibiotics for bowel perforation. - Surgery ordered Rocephin and flagyl. - Medical management as per primary. Patient seen, examined and case discussed with Dr Ozuna. <Osmin Ozuna - Last Filed: 04/04/17 13:01> Objective - Vital Signs/Intake and Output Vital Signs (last 24 hours): Temp Pulse Resp BP Pulse Ox 98.4 F 71 20 110/73 100 04/04/17 06:00 04/04/17 06:00 04/04/17 06:00 04/04/17 06:00 04/04/17 06:00 Intake and Output: 04/04/17 04/04/17 06:59 18:59 Intake Total 300 Output Total 2 Balance 298 - Medications Medications: Current Medications Carbamazepine (Tegretol) 100 mg PO BID [facility] PRN Reason: Protocol Last Admin: 04/04/17 10:37 Dose: 100 mg Folic Acid (Folic Acid) 1 mg PO DAILY [facility] Last Admin: 04/04/17 10:23 Dose: 1 mg Gabapentin (Neurontin) 300 mg PO TID [facility] PRN Reason: Protocol Last Admin: 04/04/17 10:23 Dose: 300 mg Heparin Sodium (Porcine) (Heparin) 5,000 units SC Q12 [facility] PRN Reason: Protocol Last Admin: 04/04/17 10:23 Dose: 5,000 units Hydromorphone HCl (Dilaudid) 0.5 mg IVP Q4H PRN PRN Reason: Pain, moderate (4-7) Last Admin: 04/04/17 11:18 Dose: 0.5 mg Sodium Chloride (Sodium Chloride 0.9%) 1,000 mls @ 75 mls/hr IV .[id number] [facility] Last Admin: 04/03/17 15:11 Dose: 75 mls/hr Ceftriaxone Sodium (Rocephin 1 Gram Ivpb) 1 gm in 100 mls @ 100 mls/hr IVPB DAILY [facility] PRN Reason: Protocol Last Admin: 04/04/17 10:24 Dose: 100 mls/hr Metronidazole (Flagyl) 500 mg in 100 mls @ 100 mls/hr IVPB Q8 [facility] PRN Reason: Protocol Mirtazapine (Remeron) 15 mg PO HS [facility] Last Admin: 04/03/17 21:36 Dose: 15 mg Nicotine (Nicoderm Cq) 1 patch TD DAILY [facility] Last Admin: 04/04/17 11:19 Dose: 1 patch Tamsulosin HCl (Flomax) 0.4 mg PO DAILY [facility] Last Admin: 04/04/17 10:23 Dose: 0.4 mg Venlafaxine HCl (Effexor) 37.5 mg PO DAILY [facility] Last Admin: 04/04/17 10:23 Dose: 37.5 mg - Labs Labs: 04/04/17 08:30 04/04/17 08:30 PT 10.9 SECONDS (9.4-12.5) 04/04/17 08:30 INR 0.95 (0.93-1.08) 04/04/17 08:30 APTT 32.5 Seconds (25.1-36.5) 04/02/17 16:08 Attending/Attestation - Attestation I have personally seen and examined this patient.: Yes I have fully participated in the care of the patient.: Yes I have reviewed all pertinent clinical information, including history, physical exam and plan: Yes Notes (Text): 04/04/17 12:58 61 year old male with h/o CVA, HTN, HLD admitted with abdominal pain, h/o recent significant weight loss, evidence of SMA syndrome on CT scan. 1. SMA syndrome Plan: -suspect SMA syndrome, SMA has a severe angulation and the duodenum appears to be obstruct as the SMA crosses over -questionable presence of small amount of free air in anterior pelvis, but patient is without leukocytosis or fever, nor does he have any peritoneal signs -he is tolerated his diet at the moment -would empirically cover him with antibiotics due to the CT findings -surgery following, but no indication for urgent surgery at this time -if he is unable to tolerate a diet due to duodenal obstruction from SMA syndrome, he may ultimately need surgery if conservative measures are unsucessful -will follow
--- NOTE | 2017-04-04 08:09 | CP.PCM.PN ---
Subjective - Date & Time of Evaluation Date of Evaluation: 04/04/17 Time of Evaluation: 07:20 - Subjective Subjective: General Surgery Progress Note for Dr. Toscano Patient seen and examined at bedside. Patient reports tolerating diet yesterday and eating corn flakes today for breakfast. He denies any nasuea, vomiting, or diarrhea. Nurse reports no events overnight. Objective - Vital Signs/Intake and Output Vital Signs (last 24 hours): Temp Pulse Resp BP Pulse Ox 96.2 F L 65 21 113/73 95 04/04/17 00:00 04/04/17 00:00 04/04/17 00:00 04/04/17 00:00 04/04/17 00:00 Intake and Output: 04/04/17 04/04/17 06:59 18:59 Intake Total 300 Output Total 2 Balance 298 - Medications Medications: Current Medications Carbamazepine (Tegretol) 100 mg PO BID [facility] PRN Reason: Protocol Last Admin: 04/03/17 18:31 Dose: 100 mg Folic Acid (Folic Acid) 1 mg PO DAILY [facility] Last Admin: 04/03/17 11:28 Dose: 1 mg Gabapentin (Neurontin) 300 mg PO TID [facility] PRN Reason: Protocol Last Admin: 04/03/17 18:32 Dose: 300 mg Heparin Sodium (Porcine) (Heparin) 5,000 units SC Q12 [facility] PRN Reason: Protocol Last Admin: 04/03/17 21:36 Dose: 5,000 units Hydromorphone HCl (Dilaudid) 0.5 mg IVP Q4H PRN PRN Reason: Pain, moderate (4-7) Last Admin: 04/04/17 07:19 Dose: 0.5 mg Sodium Chloride (Sodium Chloride 0.9%) 1,000 mls @ 75 mls/hr IV .[id number] [facility] Last Admin: 04/03/17 15:11 Dose: 75 mls/hr Mirtazapine (Remeron) 15 mg PO HS [facility] Last Admin: 04/03/17 21:36 Dose: 15 mg Nicotine (Nicoderm Cq) 1 patch TD DAILY [facility] Last Admin: 04/03/17 15:35 Dose: 1 patch Tamsulosin HCl (Flomax) 0.4 mg PO DAILY [facility] Last Admin: 04/03/17 11:27 Dose: 0.4 mg Venlafaxine HCl (Effexor) 37.5 mg PO DAILY [facility] Last Admin: 04/03/17 11:28 Dose: 37.5 mg - Labs Labs: 04/03/17 07:30 04/03/17 07:30 PT 11.2 SECONDS (9.4-12.5) 04/02/17 16:08 INR 0.98 (0.93-1.08) 04/02/17 16:08 APTT 32.5 Seconds (25.1-36.5) 04/02/17 16:08 - Constitutional Appears: Non-toxic, No Acute Distress, Older Than Stated Age, Cachectic, Chronically Ill - Head Exam Head Exam: ATRAUMATIC, NORMOCEPHALIC Additional comments: temporal wasting noted - Eye Exam Eye Exam: EOMI, Normal appearance - ENT Exam ENT Exam: Mucous Membranes Moist, Normal Oropharynx - Neck Exam Neck Exam: Normal Inspection. absent: Thyromegaly - Respiratory Exam Respiratory Exam: NORMAL BREATHING PATTERN. absent: Accessory Muscle Use - Cardiovascular Exam Cardiovascular Exam: RRR, +S1, +S2 - GI/Abdominal Exam GI & Abdominal Exam: Soft. absent: Guarding, Tenderness, Rebound - Extremities Exam Extremities Exam: Normal Inspection. absent: Calf Tenderness - Back Exam Back Exam: NORMAL INSPECTION. absent: CVA tenderness (L), CVA tenderness (R) - Neurological Exam Neurological Exam: Alert, Awake - Psychiatric Exam Psychiatric exam: Normal Affect, Normal Mood Assessment and Plan - Assessment and Plan (Free Text) Assessment: 61 year old with a past medical history of hypertension, dyslipimdemia, CVA with residual weakness, wheel-chair bound who presented with abdominal pain associated with eating and/or drinking. Plan: CT angiography reads as fluid droplets in the anterior pelvis, but no evidence of SMA occlusion or stenosis. These findings are suspicious for possible bowel perforation; however, patient is asymptomatic and tolerating diet. In light of these findings, we will empirically start Ceftriaxone and Metronidazole. No acute surgical intervention at this time Serial abdominal exams We will follow up with GI recommendations. Case discussed with Dr. Toscano
[2017-04-04 08:54] LABS: BASO # 0.02 K/mm3 (0.0-2.0); BASO % 0.2 % (0.0-3.0); EOS # 0.4 (0.0-0.7); EOS % 4.6 % (1.5-5.0); GRAN # 3.6 (1.4-6.5); GRAN % 44.5 % (50.0-68.0); HEMOGLOBIN 10.2 g/dL (14.0-18.0); LYMPH # 3.1 (1.2-3.4); LYMPH % 38.5 % (22.0-35.0); MEAN CELL VOLUME 89.4 fl (80.0-105.0); MEAN CORPUSCULAR HEMOGLOBIN 27.6 pg (25.0-35.0); MEAN CORPUSCULAR HGB CONC 30.9 g/dl (31.0-37.0); MEAN PLATELET VOLUME 9.5 fl (7.0-11.0); MONO % 12.2 % (1.0-6.0); RBC 3.69 10^6/uL (3.5-6.1); RED CELL DISTRIBUTION WIDTH 17.5 % (11.5-14.5); WHITE BLOOD COUNT 8.1 10^3/ul (4.5-11.0)
[2017-04-04 09:03] LABS: INR 0.95 (0.93-1.08); PROTHROMBIN TIME 10.9 SECONDS (9.4-12.5)
[2017-04-04 09:15] LABS: ALB/GLOB RATIO 1.3 (1.1-1.8); ALBUMIN 3.4 g/dL (3.0-4.8); ALT/SGPT 14 U/L (7-56); AST/SGOT 21 U/L (17-59); BLOOD UREA NITROGEN 9 mg/dL (7-21); CALCIUM 9.1 mg/dL (8.4-10.5); GFR AFRICAN-AMERICAN > 60; GFR NON-AFRICAN AMERICAN > 60
[2017-04-04] MEDS: cefTRIAXone 1 gm 1 GM/100 ML BAG IVPB SCH (10:24)
[2017-04-04] MEDS ORDERED: metroNIDAZOLE IV 250mg/50 ml 250 MG/50 ML BAG IVPB SCH (14:00)
[2017-04-04] MEDS: metroNIDAZOLE IV 500 mg/100 ml 500 MG/100 ML BAG IVPB SCH ×2 (14:42→21:41)
[2017-04-04] MEDS: Sodium Chloride 0.9% 1,000 ML IV SCH (19:26)
--- NOTE | 2017-04-04 23:11 | PN ---
DATE: SUBJECTIVE: The patient is seen and examined at the bedside, looks like in no acute distress. No fever, no chills. Still complaining of abdominal pain, but improved. No nausea, vomiting or diarrhea. Tolerated liquid food very well. No hematuria or hematochezia. No bowel movements since yesterday. PHYSICAL EXAMINATION: VITAL SIGNS: Temperature 96.2, pulse 65 , respiratory rate 21, blood pressure 113/76, pulse oximetry 95. HEENT: Head normocephalic and atraumatic. Eyes, PERRLA. Extraocular muscles intact. Conjunctivae clear. Nose patent. Mucous membranes moist. NECK: Supple. No carotid bruits. No JVD or thyromegaly. CHEST: Bilaterally symmetrical. HEART: S1 and S2 positive. LUNGS: Clear to auscultation. ABDOMEN: Soft. Bowel sounds present. No organomegaly. EXTREMITIES: No edema. No cyanosis. NEUROLOGIC: The patient is awake and alert. Moving all four extremities. No focal deficits. MEDICATIONS: Tegretol, folic acid, Neurontin, heparin, Dilaudid, Remeron, Nicoderm, Flomax, Effexor. LABORATORY DATA: White blood cell 8.4, hemoglobin 9.7, hematocrit 31.2, and platelets 389. Sodium 136, potassium 3.7, BUN 15, creatinine 0.5, glucose 79. ASSESSMENT AND PLAN: Mr. Brandyn Wang is a 61-year-old male with anemia, history of chronic back pain, hypertension, hypercholesterolemia, gastroesophageal reflux disease, cerebrovascular accident with left sided residual weakness, came with abdominal pain. CAT scan of abdomen and pelvis with IV contrast reveals superior mesenteric artery syndrome, possibly internal hernia containing small bowel in the right flank lower quadrant, atherosclerotic disease, mild dilation of the infrarenal abdominal aorta, a 3 cm maximal diameter, another CT with p.o. contrast with no significant finding. Due to high suspicious of ischemic bowel and superior mesenteric artery syndrome, the patient underwent CTA revealing a small droplet of free air in the inferior pelvis. Discussion done with radiologists, Dr. Beard. Finding suspicious of bowel perforation and small infrarenal abdominal aortic aneurysm. Discussion done with Dr. Ozuna also, no evidence of superior mesenteric artery occlusion or stenosis. As per the patient, the patient has EGD in 10/2006 revealing severe esophageal candidiasis and arteriovenous malformation of the duodenum, unable to complete colonoscopy due to poor preparation. Left upper quadrant abdominal pain suspicious superior mesenteric artery syndrome, suspicious small bowel perforation, weight loss over 30 pounds in the past 2 years, 3 cm infrarenal abdominal aortic aneurysm on CT, hypertension. Imaging revealed. Discussion done with Dr. Ozuna suspicious of superior mesenteric artery syndrome. Continue conservative management for now. If symptoms worsen, the patient might need surgery. Surgeon Dr. Kendrick Victoria is on the case. We will advance diet as tolerated. Continue pain medications. Continue antiemetic, nutrition support, antibiotics for small bowel obstruction Rocephin and Flagyl. Spoke to the patient, the patient has one son Brandyn and daughter Peggy. Appreciated Dr. Rashawn Toscano progress note. Gastrointestinal and deep venous thrombosis prophylaxis. Repeat labs. We will follow up. Radha Lantigua MD [place]
[2017-04-05] MEDS: HYDROmorphone 0.5 mg/0.5 ml ISec IVP PRN ×5 (00:03→19:40)
[2017-04-05] MEDS: Sodium Chloride 0.9% 1,000 ML IV SCH (00:04)
[2017-04-05] MEDS: metroNIDAZOLE IV 500 mg/100 ml 500 MG/100 ML BAG IVPB SCH ×3 (04:59→21:12)
[2017-04-05] MEDS: cefTRIAXone 1 gm 1 GM/100 ML BAG IVPB SCH (10:18)
--- NOTE | 2017-04-05 10:56 | CP.PCM.PN ---
<James Douglas - Last Filed: 04/05/17 17:05> Subjective - Date & Time of Evaluation Date of Evaluation: 04/05/17 Time of Evaluation: 10:52 - Subjective Subjective: General Surgery Progress Note for Dr. Victoria Patient seen and examined at bedside. Patient reports having abdominal pain yesterday. He states that he successfully self-induced induced himself to vomit. He has not not passed a bowel movement since admission. He was given pain medications that let him fall asleep, but when he woke up today he states his abdominal pain is worst. Nursing notes reviewed. Patient is now NPO. Objective - Vital Signs/Intake and Output Vital Signs (last 24 hours): Temp Pulse Resp BP Pulse Ox 99.4 F 100 H 19 125/82 97 04/05/17 06:00 04/05/17 06:00 04/05/17 06:00 04/05/17 06:00 04/05/17 06:00 Intake and Output: 04/05/17 04/05/17 06:59 18:59 Intake Total 900 Balance 900 - Medications Medications: Current Medications Carbamazepine (Tegretol) 100 mg PO BID [facility] PRN Reason: Protocol Last Admin: 04/05/17 10:17 Dose: 100 mg Folic Acid (Folic Acid) 1 mg PO DAILY [facility] Last Admin: 04/05/17 10:16 Dose: 1 mg Gabapentin (Neurontin) 300 mg PO TID [facility] PRN Reason: Protocol Last Admin: 04/05/17 10:16 Dose: 300 mg Heparin Sodium (Porcine) (Heparin) 5,000 units SC Q12 [facility] PRN Reason: Protocol Last Admin: 04/05/17 10:18 Dose: 5,000 units Hydromorphone HCl (Dilaudid) 0.5 mg IVP Q4H PRN PRN Reason: Pain, moderate (4-7) Last Admin: 04/05/17 10:16 Dose: 0.5 mg Sodium Chloride (Sodium Chloride 0.9%) 1,000 mls @ 75 mls/hr IV .[id number] [facility] Last Admin: 04/05/17 00:04 Dose: 75 mls/hr Ceftriaxone Sodium (Rocephin 1 Gram Ivpb) 1 gm in 100 mls @ 100 mls/hr IVPB DAILY [facility] PRN Reason: Protocol Last Admin: 04/05/17 10:18 Dose: 100 mls/hr Metronidazole (Flagyl) 500 mg in 100 mls @ 100 mls/hr IVPB Q8 [facility] PRN Reason: Protocol Last Admin: 04/05/17 04:59 Dose: 100 mls/hr Mirtazapine (Remeron) 15 mg PO HS [facility] Last Admin: 04/04/17 21:41 Dose: 15 mg Nicotine (Nicoderm Cq) 1 patch TD DAILY [facility] Last Admin: 04/05/17 10:15 Dose: 1 patch Ondansetron HCl (Zofran Inj) 4 mg IVP Q6H PRN PRN Reason: Nausea/Vomiting Last Admin: 04/05/17 08:33 Dose: 4 mg Tamsulosin HCl (Flomax) 0.4 mg PO DAILY [facility] Last Admin: 04/05/17 10:16 Dose: 0.4 mg Venlafaxine HCl (Effexor) 37.5 mg PO DAILY [facility] Last Admin: 04/05/17 10:17 Dose: 37.5 mg - Labs Labs: 04/04/17 08:30 04/04/17 08:30 PT 10.9 SECONDS (9.4-12.5) 04/04/17 08:30 INR 0.95 (0.93-1.08) 04/04/17 08:30 APTT 32.5 Seconds (25.1-36.5) 04/02/17 16:08 - Constitutional Appears: Cachectic - Head Exam Head Exam: ATRAUMATIC, NORMOCEPHALIC Additional comments: temporal wasting noted - Eye Exam Eye Exam: EOMI - GI/Abdominal Exam GI & Abdominal Exam: Tenderness (particularly tender in the LLQ, but diffusely tender overall.) Additional comments: near absent bowel sounds - Neurological Exam Neurological Exam: Alert, Awake, Oriented x3 - Psychiatric Exam Psychiatric exam: Normal Affect, Normal Mood - Skin Skin Exam: Dry, Intact, Normal Color, Warm Assessment and Plan - Assessment and Plan (Free Text) Assessment: 61 year old male with recent weight loss, early satiety, new-onset nausea and vomiting with several days of worsening abdominal pain, inability to pass stool (or gas), and 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 Plan: Continue with IV antibiotics SBFT showed no obstruction, but showed moderately distended stomach and duodenum Further recommendations per Dr. Victoria <Kendrick Victoria - Last Filed: 04/05/17 19:20> Objective - Vital Signs/Intake and Output Vital Signs (last 24 hours): Temp Pulse Resp BP Pulse Ox 99.4 F 100 H 19 125/82 97 04/05/17 06:00 04/05/17 06:00 04/05/17 06:00 04/05/17 06:00 04/05/17 06:00 - Medications Medications: Current Medications Carbamazepine (Tegretol) 100 mg PO BID [facility] PRN Reason: Protocol Last Admin: 04/05/17 17:13 Dose: 100 mg Folic Acid (Folic Acid) 1 mg PO DAILY [facility] Last Admin: 04/05/17 10:16 Dose: 1 mg Gabapentin (Neurontin) 300 mg PO TID [facility] PRN Reason: Protocol Last Admin: 04/05/17 15:51 Dose: 300 mg Heparin Sodium (Porcine) (Heparin) 5,000 units SC Q12 [facility] PRN Reason: Protocol Last Admin: 04/05/17 10:18 Dose: 5,000 units Hydromorphone HCl (Dilaudid) 0.5 mg IVP Q4H PRN PRN Reason: Pain, moderate (4-7) Last Admin: 04/05/17 15:54 Dose: 0.5 mg Sodium Chloride (Sodium Chloride 0.9%) 1,000 mls @ 75 mls/hr IV .[id number] [facility] Last Admin: 04/05/17 00:04 Dose: 75 mls/hr Ceftriaxone Sodium (Rocephin 1 Gram Ivpb) 1 gm in 100 mls @ 100 mls/hr IVPB DAILY [facility] PRN Reason: Protocol Last Admin: 04/05/17 10:18 Dose: 100 mls/hr Metronidazole (Flagyl) 500 mg in 100 mls @ 100 mls/hr IVPB Q8 [facility] PRN Reason: Protocol Last Admin: 04/05/17 15:51 Dose: 100 mls/hr Mirtazapine (Remeron) 15 mg PO HS [facility] Last Admin: 04/04/17 21:41 Dose: 15 mg Nicotine (Nicoderm Cq) 1 patch TD DAILY [facility] Last Admin: 04/05/17 10:15 Dose: 1 patch Ondansetron HCl (Zofran Inj) 4 mg IVP Q6H PRN PRN Reason: Nausea/Vomiting Last Admin: 04/05/17 08:33 Dose: 4 mg Tamsulosin HCl (Flomax) 0.4 mg PO DAILY [facility] Last Admin: 04/05/17 10:16 Dose: 0.4 mg Venlafaxine HCl (Effexor) 37.5 mg PO DAILY [facility] Last Admin: 04/05/17 10:17 Dose: 37.5 mg - Labs Labs: 04/05/17 12:30 04/05/17 12:30 PT 10.9 SECONDS (9.4-12.5) 04/04/17 08:30 INR 0.95 (0.93-1.08) 04/04/17 08:30 APTT 32.5 Seconds (25.1-36.5) 04/02/17 16:08 Assessment and Plan - Assessment and Plan (Free Text) Assessment: This is not my patient and I cannot sign the progress note without recommending Dr Toscano review the residents findings Arnoldo Victoria MD FACS
--- NOTE | 2017-04-05 12:30 | CP.PCM.PN ---
<Robb Bolton - Last Filed: 04/05/17 12:26> Subjective - Date & Time of Evaluation Date of Evaluation: 04/05/17 Time of Evaluation: 09:15 - Subjective Subjective: PGY5 GI Fellow Progress Note Patient seen and examined bedside this morning. The patient is now complaining of worsening left sided and suprapubic abdominal pain. Has not had BM in several days and is again vomiting. He is vomiting during my time at bedside without inducing this as he had previously done. Mentioned that he noted early satiety with meals in the last 24H. No fever, chills. 12 system ROS performed and negative except where stated. Objective - Vital Signs/Intake and Output Vital Signs (last 24 hours): Temp Pulse Resp BP Pulse Ox 99.4 F 100 H 19 125/82 97 04/05/17 06:00 04/05/17 06:00 04/05/17 06:00 04/05/17 06:00 04/05/17 06:00 Intake and Output: 04/05/17 04/05/17 06:59 18:59 Intake Total 900 Balance 900 - Medications Medications: Current Medications Carbamazepine (Tegretol) 100 mg PO BID [facility] PRN Reason: Protocol Last Admin: 04/05/17 10:17 Dose: 100 mg Folic Acid (Folic Acid) 1 mg PO DAILY [facility] Last Admin: 04/05/17 10:16 Dose: 1 mg Gabapentin (Neurontin) 300 mg PO TID [facility] PRN Reason: Protocol Last Admin: 04/05/17 10:16 Dose: 300 mg Heparin Sodium (Porcine) (Heparin) 5,000 units SC Q12 [facility] PRN Reason: Protocol Last Admin: 04/05/17 10:18 Dose: 5,000 units Hydromorphone HCl (Dilaudid) 0.5 mg IVP Q4H PRN PRN Reason: Pain, moderate (4-7) Last Admin: 04/05/17 10:16 Dose: 0.5 mg Sodium Chloride (Sodium Chloride 0.9%) 1,000 mls @ 75 mls/hr IV .[id number] [facility] Last Admin: 04/05/17 00:04 Dose: 75 mls/hr Ceftriaxone Sodium (Rocephin 1 Gram Ivpb) 1 gm in 100 mls @ 100 mls/hr IVPB DAILY [facility] PRN Reason: Protocol Last Admin: 04/05/17 10:18 Dose: 100 mls/hr Metronidazole (Flagyl) 500 mg in 100 mls @ 100 mls/hr IVPB Q8 [facility] PRN Reason: Protocol Last Admin: 04/05/17 04:59 Dose: 100 mls/hr Mirtazapine (Remeron) 15 mg PO HS [facility] Last Admin: 04/04/17 21:41 Dose: 15 mg Nicotine (Nicoderm Cq) 1 patch TD DAILY [facility] Last Admin: 04/05/17 10:15 Dose: 1 patch Ondansetron HCl (Zofran Inj) 4 mg IVP Q6H PRN PRN Reason: Nausea/Vomiting Last Admin: 04/05/17 08:33 Dose: 4 mg Tamsulosin HCl (Flomax) 0.4 mg PO DAILY [facility] Last Admin: 04/05/17 10:16 Dose: 0.4 mg Venlafaxine HCl (Effexor) 37.5 mg PO DAILY [facility] Last Admin: 04/05/17 10:17 Dose: 37.5 mg - Labs Labs: 04/04/17 08:30 04/04/17 08:30 PT 10.9 SECONDS (9.4-12.5) 04/04/17 08:30 INR 0.95 (0.93-1.08) 04/04/17 08:30 APTT 32.5 Seconds (25.1-36.5) 04/02/17 16:08 - Constitutional Appears: Other (nauseated, vomiting) - Eye Exam Eye Exam: EOMI, PERRL - ENT Exam ENT Exam: Mucous Membranes Dry - Respiratory Exam Respiratory Exam: Clear to Ausculation Bilateral. absent: Rales, Rhonchi, Wheezes - Cardiovascular Exam Cardiovascular Exam: RRR, +S1, +S2 - GI/Abdominal Exam GI & Abdominal Exam: Soft, Tenderness (LUQ, suprapubic, left flank), Hypoactive Bowel Sounds. absent: Distended, Firm, Guarding, Rigid, Organomegaly, Rebound - Extremities Exam Extremities Exam: absent: Pedal Edema Additional comments: left hemiplegia - Neurological Exam Neurological Exam: Alert, Awake, Oriented x3 - Psychiatric Exam Psychiatric exam: Agitated - Skin Skin Exam: Dry, Warm Assessment and Plan - Assessment and Plan (Free Text) Assessment: Patient is a 61yo male with PMHx significant for CVA with left sided deficits, HTN, HLD who presented with abdominal pain, nausea and vomiting. Pt has history of 40-50lb weight loss since 2015 at time of his CVA. -SMA syndrome -Concern for bowel perforation/microperforation -Abdominal pain, nausea, vomiting likely 2/2 above Plan: -Worsening abdominal pain and recurrence of nausea, vomiting following 2-3 days of full diet -Recommend NPO with meds and sips of water -Check small bowel follow through to evaluate for small bowel obstruction as a result of SMA syndrome; OK for patient to drink contrast if he can tolerate -PRN zofran -Consider CT head to rule out any central cause for nausea/vomiting -Continue empiric antibiotic coverage with Ceftriaxone/Flagyl -General surgery following with concern for possible perforation/ microperforation and SMA syndrome; no plan for surgical intervention at this moment -If patient has developed obstructive pathology, may benefit from post obstruction tube feeding vs surgical repair -Plan per findings <Katrina Hernández MD - Last Filed: 04/05/17 17:30> Objective - Vital Signs/Intake and Output Vital Signs (last 24 hours): Temp Pulse Resp BP Pulse Ox 99.4 F 100 H 19 125/82 97 04/05/17 06:00 04/05/17 06:00 04/05/17 06:00 04/05/17 06:00 04/05/17 06:00 Intake and Output: 04/05/17 04/05/17 06:59 18:59 Intake Total 900 Balance 900 - Medications Medications: Current Medications Carbamazepine (Tegretol) 100 mg PO BID [facility] PRN Reason: Protocol Last Admin: 04/05/17 10:17 Dose: 100 mg Folic Acid (Folic Acid) 1 mg PO DAILY [facility] Last Admin: 04/05/17 10:16 Dose: 1 mg Gabapentin (Neurontin) 300 mg PO TID [facility] PRN Reason: Protocol Last Admin: 04/05/17 15:51 Dose: 300 mg Heparin Sodium (Porcine) (Heparin) 5,000 units SC Q12 [facility] PRN Reason: Protocol Last Admin: 04/05/17 10:18 Dose: 5,000 units Hydromorphone HCl (Dilaudid) 0.5 mg IVP Q4H PRN PRN Reason: Pain, moderate (4-7) Last Admin: 04/05/17 15:54 Dose: 0.5 mg Sodium Chloride (Sodium Chloride 0.9%) 1,000 mls @ 75 mls/hr IV .[id number] [facility] Last Admin: 04/05/17 00:04 Dose: 75 mls/hr Ceftriaxone Sodium (Rocephin 1 Gram Ivpb) 1 gm in 100 mls @ 100 mls/hr IVPB DAILY [facility] PRN Reason: Protocol Last Admin: 04/05/17 10:18 Dose: 100 mls/hr Metronidazole (Flagyl) 500 mg in 100 mls @ 100 mls/hr IVPB Q8 [facility] PRN Reason: Protocol Last Admin: 04/05/17 15:51 Dose: 100 mls/hr Mirtazapine (Remeron) 15 mg PO HS [facility] Last Admin: 04/04/17 21:41 Dose: 15 mg Nicotine (Nicoderm Cq) 1 patch TD DAILY [facility] Last Admin: 04/05/17 10:15 Dose: 1 patch Ondansetron HCl (Zofran Inj) 4 mg IVP Q6H PRN PRN Reason: Nausea/Vomiting Last Admin: 04/05/17 08:33 Dose: 4 mg Tamsulosin HCl (Flomax) 0.4 mg PO DAILY [facility] Last Admin: 04/05/17 10:16 Dose: 0.4 mg Venlafaxine HCl (Effexor) 37.5 mg PO DAILY [facility] Last Admin: 04/05/17 10:17 Dose: 37.5 mg - Labs Labs: 04/05/17 12:30 04/05/17 12:30 PT 10.9 SECONDS (9.4-12.5) 04/04/17 08:30 INR 0.95 (0.93-1.08) 04/04/17 08:30 APTT 32.5 Seconds (25.1-36.5) 04/02/17 16:08 Attending/Attestation - Attestation I have personally seen and examined this patient.: Yes I have fully participated in the care of the patient.: Yes I have reviewed all pertinent clinical information, including history, physical exam and plan: Yes Notes (Text): 04/05/17 17:04 Patient seen with GI fellow at bedside this am. In a nutshell this is a 61 yr old male with PMHx significant for CVA with left sided deficits, HTN, HLD who presented with abdominal pain, nausea and vomiting. Pt has history of 40-50lb weight loss since 2015 at time of his CVA. CT image reviewed that showed dilated stomach and duodenum with micro perforation. Unable to tolerate po intake. Obstructive series shows contrast in the colon making SMA syndrome likely etiology for his symptoms. Continue antibiotics for microperforation with surgical evaluation. Discussed feeding options with the patient today in detail including feeding tube. Patient is currently ambivalent. Consider CT head non contrast to rule out central causes of nausea and vomiting. Replete electrolytes.
[2017-04-05 12:50] LABS: BASO # 0.01 K/mm3 (0.0-2.0); BASO % 0.1 % (0.0-3.0); EOS # 0.3 (0.0-0.7); EOS % 3.7 % (1.5-5.0); GRAN # 3.39 (1.4-6.5); GRAN % 47.1 % (50.0-68.0); HEMOGLOBIN 9.2 g/dL (14.0-18.0); LYMPH # 2.5 (1.2-3.4); LYMPH % 35.2 % (22.0-35.0); MEAN CORPUSCULAR HEMOGLOBIN 27.9 pg (25.0-35.0); MEAN PLATELET VOLUME 9.5 fl (7.0-11.0); MONO % 13.9 % (1.0-6.0); RBC 3.3 10^6/uL (3.5-6.1); RED CELL DISTRIBUTION WIDTH 17.6 % (11.5-14.5); WHITE BLOOD COUNT 7.2 10^3/ul (4.5-11.0)
[2017-04-05 13:02] LABS: ALB/GLOB RATIO 1.2 (1.1-1.8); ALBUMIN 3.3 g/dL (3.0-4.8); ALT/SGPT 21 U/L (7-56); AST/SGOT 15 U/L (17-59); BLOOD UREA NITROGEN 9 mg/dL (7-21); CALCIUM 8.7 mg/dL (8.4-10.5); GFR AFRICAN-AMERICAN > 60; GFR NON-AFRICAN AMERICAN > 60
--- NOTE | 2017-04-05 15:35 | RAD ---
PROCEDURE: Small bowel series HISTORY: r/o obstruction, SMA syndrome suspected COMPARISON: TECHNIQUE: A single contrast study was performed with water-soluble contrast FINDINGS: The knit tubing dyer film shows some residual contrast in the right side of the colon. The stomach and duodenum are distended. The early images show contrast in the stomach and duodenum which are moderate to severely distended. However contrast flows into the small bowel without obstruction and reaches the colon within 45 minutes. Contrast extends throughout the colon at 75 and 105 minutes. IMPRESSION: No evidence of obstruction
[2017-04-05] MEDS: Lidocaine 5% Patch TD SCH (21:13)
[2017-04-06] MEDS: HYDROmorphone 0.5 mg/0.5 ml ISec IVP PRN ×2 (00:11→05:12)
[2017-04-06] MEDS: Sodium Chloride 0.9% 1,000 ML IV SCH ×2 (00:17→21:32)
[2017-04-06] MEDS: metroNIDAZOLE IV 500 mg/100 ml 500 MG/100 ML BAG IVPB SCH ×3 (05:10→21:21)
--- NOTE | 2017-04-06 06:39 | CP.PCM.PN ---
<Astrid Little - Last Filed: 04/06/17 09:10> Subjective - Date & Time of Evaluation Date of Evaluation: 04/06/17 Time of Evaluation: 06:55 - Subjective Subjective: GI progress note for Dr Ozuna's service. Patient in no acute distress. Patient states he was able to eat pretzels yesterday with no abdominal pain. Also drunk po contrast for abdominal series with no nausea or vomiting. Denies fever, chills, n/v/d. States the abdominal pain is only there when palpated. Objective - Vital Signs/Intake and Output Vital Signs (last 24 hours): Temp Pulse Resp BP Pulse Ox 99.4 F 100 H 19 125/82 97 04/05/17 06:00 04/05/17 06:00 04/05/17 06:00 04/05/17 06:00 04/05/17 06:00 Intake and Output: 04/05/17 04/06/17 18:59 06:59 Intake Total 935 Output Total 0 Balance 935 - Medications Medications: Current Medications Carbamazepine (Tegretol) 100 mg PO BID [facility] PRN Reason: Protocol Last Admin: 04/05/17 17:13 Dose: 100 mg Folic Acid (Folic Acid) 1 mg PO DAILY [facility] Last Admin: 04/05/17 10:16 Dose: 1 mg Gabapentin (Neurontin) 300 mg PO TID [facility] PRN Reason: Protocol Last Admin: 04/05/17 21:12 Dose: 300 mg Heparin Sodium (Porcine) (Heparin) 5,000 units SC Q12 [facility] PRN Reason: Protocol Last Admin: 04/05/17 21:12 Dose: 5,000 units Hydromorphone HCl (Dilaudid) 0.5 mg IVP Q4H PRN PRN Reason: Pain, moderate (4-7) Last Admin: 04/06/17 05:12 Dose: 0.5 mg Sodium Chloride (Sodium Chloride 0.9%) 1,000 mls @ 75 mls/hr IV .[id number] [facility] Last Admin: 04/06/17 00:17 Dose: 75 mls/hr Ceftriaxone Sodium (Rocephin 1 Gram Ivpb) 1 gm in 100 mls @ 100 mls/hr IVPB DAILY [facility] PRN Reason: Protocol Last Admin: 04/05/17 10:18 Dose: 100 mls/hr Metronidazole (Flagyl) 500 mg in 100 mls @ 100 mls/hr IVPB Q8 [facility] PRN Reason: Protocol Last Admin: 04/06/17 05:10 Dose: 100 mls/hr Lidocaine (Lidoderm) 1 ea TD 2200 [facility] Last Admin: 04/05/17 21:13 Dose: 1 ea Mirtazapine (Remeron) 15 mg PO HS [facility] Last Admin: 04/05/17 21:12 Dose: 15 mg Nicotine (Nicoderm Cq) 1 patch TD DAILY [facility] Last Admin: 04/05/17 10:15 Dose: 1 patch Ondansetron HCl (Zofran Inj) 4 mg IVP Q6H PRN PRN Reason: Nausea/Vomiting Last Admin: 04/05/17 08:33 Dose: 4 mg Tamsulosin HCl (Flomax) 0.4 mg PO DAILY [facility] Last Admin: 04/05/17 10:16 Dose: 0.4 mg Venlafaxine HCl (Effexor) 37.5 mg PO DAILY [facility] Last Admin: 04/05/17 10:17 Dose: 37.5 mg - Labs Labs: 04/05/17 12:30 04/05/17 12:30 PT 10.9 SECONDS (9.4-12.5) 04/04/17 08:30 INR 0.95 (0.93-1.08) 04/04/17 08:30 APTT 32.5 Seconds (25.1-36.5) 04/02/17 16:08 - Constitutional Appears: No Acute Distress, Cachectic - Head Exam Head Exam: ATRAUMATIC, NORMAL INSPECTION, NORMOCEPHALIC - Eye Exam Eye Exam: Normal appearance. absent: Scleral icterus - ENT Exam ENT Exam: Mucous Membranes Dry - Neck Exam Neck Exam: Normal Inspection - Respiratory Exam Respiratory Exam: Clear to Ausculation Bilateral, NORMAL BREATHING PATTERN. absent: Rales, Rhonchi, Wheezes, Respiratory Distress, Stridor - Cardiovascular Exam Cardiovascular Exam: REGULAR RHYTHM, +S1, +S2. absent: Murmur - GI/Abdominal Exam GI & Abdominal Exam: Soft, Normal Bowel Sounds. absent: Distended, Firm, Guarding, Rigid, Tenderness, Organomegaly, Rebound - Extremities Exam Extremities Exam: Normal Inspection. absent: Pedal Edema - Back Exam Back Exam: NORMAL INSPECTION - Neurological Exam Neurological Exam: Alert, Awake, Oriented x3 - Psychiatric Exam Psychiatric exam: Normal Affect, Normal Mood - Skin Skin Exam: Dry, Intact, Normal Color, Warm Assessment and Plan - Assessment and Plan (Free Text) Assessment: Patient is a 61yo male with PMHx significant for CVA with left sided deficits, HTN, HLD who presented with abdominal pain, nausea and vomiting. Pt has history of 40-50lb weight loss since 2015 at time of his CVA. -SMA syndrome -Concern for bowel perforation/microperforation -Abdominal pain, nausea, vomiting- resolved Plan: - Small bowel series with no obstruction, moderately to severely distended stomach and duodenum. -Continue with PRN zofran - Consider CT head to rule out any central cause for nausea/vomiting -Continue empiric antibiotic coverage with Ceftriaxone/Flagyl for microperforation - Dr Ozuna had an extensive discussion with patient regarding his condition, and the 3 options available to the patient including continuing liquid diet supplemented with ensure to help patient gain weight, versus getting j-tube feeding to optimized the patient nutritionally versus surgical repair. Patient states he would prefer to have surgery, and is refusing the tube feeding. - Patient's preference relayed to the surgical team. - Patient would like to try regular diet today and see, - Advance diet as tolerated. - Medical management as per primary Patient seen, examined and case discussed with Dr Ozuna. <Osmin Ozuna - Last Filed: 04/06/17 10:07> Objective - Vital Signs/Intake and Output Vital Signs (last 24 hours): Temp Pulse Resp BP Pulse Ox 98.4 F 74 19 121/90 97 04/06/17 06:00 04/06/17 06:00 04/06/17 06:00 04/06/17 06:00 04/05/17 06:00 Intake and Output: 04/06/17 04/06/17 06:59 18:59 Intake Total 935 Output Total 0 Balance 935 - Medications Medications: Current Medications Carbamazepine (Tegretol) 100 mg PO BID [facility] PRN Reason: Protocol Last Admin: 04/06/17 09:48 Dose: 100 mg Folic Acid (Folic Acid) 1 mg PO DAILY [facility] Last Admin: 04/06/17 09:49 Dose: 1 mg Gabapentin (Neurontin) 300 mg PO TID [facility] PRN Reason: Protocol Last Admin: 04/06/17 09:48 Dose: 300 mg Heparin Sodium (Porcine) (Heparin) 5,000 units SC Q12 [facility] PRN Reason: Protocol Last Admin: 04/06/17 09:49 Dose: 5,000 units Hydromorphone HCl (Dilaudid) 0.5 mg IVP Q4H PRN PRN Reason: Pain, moderate (4-7) Last Admin: 04/06/17 09:49 Dose: 0.5 mg Sodium Chloride (Sodium Chloride 0.9%) 1,000 mls @ 75 mls/hr IV .[id number] [facility] Last Admin: 04/06/17 00:17 Dose: 75 mls/hr Ceftriaxone Sodium (Rocephin 1 Gram Ivpb) 1 gm in 100 mls @ 100 mls/hr IVPB DAILY [facility] PRN Reason: Protocol Stop: 04/08/17 10:59 Last Admin: 04/06/17 09:51 Dose: 100 mls/hr Metronidazole (Flagyl) 500 mg in 100 mls @ 100 mls/hr IVPB Q8 [facility] PRN Reason: Protocol Last Admin: 04/06/17 05:10 Dose: 100 mls/hr Lidocaine (Lidoderm) 1 ea TD 2200 [facility] Last Admin: 04/05/17 21:13 Dose: 1 ea Mirtazapine (Remeron) 15 mg PO HS [facility] Last Admin: 04/05/17 21:12 Dose: 15 mg Nicotine (Nicoderm Cq) 1 patch TD DAILY [facility] Last Admin: 04/05/17 10:15 Dose: 1 patch Ondansetron HCl (Zofran Inj) 4 mg IVP Q6H PRN PRN Reason: Nausea/Vomiting Last Admin: 04/05/17 08:33 Dose: 4 mg Tamsulosin HCl (Flomax) 0.4 mg PO DAILY [facility] Last Admin: 04/06/17 09:48 Dose: 0.4 mg Venlafaxine HCl (Effexor) 37.5 mg PO DAILY [facility] Last Admin: 04/06/17 09:48 Dose: 37.5 mg - Labs Labs: 04/05/17 12:30 04/05/17 12:30 PT 10.9 SECONDS (9.4-12.5) 04/04/17 08:30 INR 0.95 (0.93-1.08) 04/04/17 08:30 APTT 32.5 Seconds (25.1-36.5) 04/02/17 16:08 Attending/Attestation - Attestation I have personally seen and examined this patient.: Yes I have fully participated in the care of the patient.: Yes I have reviewed all pertinent clinical information, including history, physical exam and plan: Yes Notes (Text): 04/06/17 10:04 61 year old male with h/o CVA, HTN, HLD admitted with abdominal pain, N/V, and weight loss, found to have SMA syndrome. 1. SMA syndrome Plan: - reviewed CT/SBFT extensively, patient has SMA syndrome, the SMA travels at an acute angle compressing the duodenum between the SMA and the aorta - discussed the diagnosis with the patient including treatment options - he is not completely obstructed, advised to increase his liquid nutrition with ensure supplementation - also offered him a jejunal feeding tube as an alternative to surgery, but he does not want a tube and wants to be able to eat normal food - surgical options would potentially include strong procedure or gastro/duodeno- enterostomy - discussed the case with the surgical team as well
[2017-04-06] MEDS: HYDROmorphone 2 mg/ml ISec IVP PRN ×3 (09:49→17:49)
[2017-04-06] MEDS: cefTRIAXone 1 gm 1 GM/100 ML BAG IVPB SCH (09:51)
--- NOTE | 2017-04-06 10:02 | PN ---
DATE: 04/05/2017 SUBJECTIVE: The patient is seen and examined at the bedside, looking comfortable, had episode of nausea and vomiting yesterday. No fever. No chills. Complaining of abdominal pain and back pain. According to him, only Dilaudid is not helping. We put Lidoderm patch 5% on the back. Spoke to the patient's daughter, Peggy. Length of time discussion done. All questions answered. Surgical team and GI is on the case. No headache, no dizziness. Complaining of worsening of left-sided and suprapubic abdominal pain. Has not had bowel movements several days and early satiety with the meals in the last 24 hours. No hematuria or hematochezia. No fever, no chills. PHYSICAL EXAMINATION: VITAL SIGNS: Temperature 99.4, pulse 100, respiratory rate 19, blood pressure 125/82, and pulse oximetry of 97. HEENT: Head, normocephalic and atraumatic. Eyes, PERRLA. Extraocular muscles intact. Conjunctivae clear. Nose patent. NECK: Supple. No carotid bruits. No JVD or thyromegaly. CHEST: Bilaterally symmetrical. HEART: S1 and S2 positive. LUNGS: Clear to auscultation. ABDOMEN: Soft, tender in all four quadrants. No organomegaly. EXTREMITIES: No edema. No cyanosis. NEUROLOGIC: The patient is awake, alert, moving all four extremities. No focal deficit. MEDICATIONS: Tegretol, folic acid, Neurontin, heparin, Dilaudid, NS, Rocephin, Flagyl, Remeron, Nicoderm patch, Zofran, Flomax, and Effexor. LABORATORY DATA: White blood cells 8.1, hemoglobin 10.2, hematocrit 33.0, platelets 384. Sodium 139, potassium 3.9, BUN 9, creatinine 0.5, glucose 86. ASSESSMENT AND PLAN: Mr. Brandyn Suggs is a 61-year-old male with anemia with past medical history of cerebrovascular accident with left-sided weakness, hypertension, hypercholesterolemia, has intractable abdominal pain with nausea and vomiting and no bowel movements, lost 40-50 pound of weight since 2014. At that time also he had cerebrovascular accident. Superior mesenteric artery syndrome, concern of bowel perforation, microperforation, abdominal pain, back pain and abdominal pain is worsening, recurrent nausea and vomiting. Recommended n.p.o. with medications and sips of water. Small bowel series done, looks like within normal limits. Zofran ordered. Consider CT scan of the head to rule out center cause of nausea and vomiting. Continue empiric antibiotics for coverage of ceftriaxone and Flagyl. Gastrointestinal and deep venous thrombosis prophylaxis. Reviewed Gastroenterology notes. Unable to tolerate p.o. intake. Obstructive series shows contrast in the colon making superior mesenteric artery syndrome likely etiology of his symptoms. Discussed feeding options with the patient and his family including feeding tube. We will followup. Radha Lantigua MD
--- NOTE | 2017-04-06 12:51 | CP.PCM.PN ---
Subjective - Date & Time of Evaluation Date of Evaluation: 04/06/17 Time of Evaluation: 07:30 - Subjective Subjective: General Surgery Progress Note for Dr. Toscano Patient seen and examined at bedside. Patient reports that his appetite has returned. Patient reports abdominal pain has dimisnhed. Nurse reports no events overnight. Objective - Vital Signs/Intake and Output Vital Signs (last 24 hours): Temp Pulse Resp BP Pulse Ox 98.4 F 74 19 121/90 97 04/06/17 06:00 04/06/17 06:00 04/06/17 06:00 04/06/17 06:00 04/05/17 06:00 Intake and Output: 04/06/17 04/06/17 06:59 18:59 Intake Total 935 Output Total 0 Balance 935 - Medications Medications: Current Medications Carbamazepine (Tegretol) 100 mg PO BID [facility] PRN Reason: Protocol Last Admin: 04/06/17 09:48 Dose: 100 mg Folic Acid (Folic Acid) 1 mg PO DAILY [facility] Last Admin: 04/06/17 09:49 Dose: 1 mg Gabapentin (Neurontin) 300 mg PO TID [facility] PRN Reason: Protocol Last Admin: 04/06/17 09:48 Dose: 300 mg Heparin Sodium (Porcine) (Heparin) 5,000 units SC Q12 [facility] PRN Reason: Protocol Last Admin: 04/06/17 09:49 Dose: 5,000 units Hydromorphone HCl (Dilaudid) 0.5 mg IVP Q4H PRN PRN Reason: Pain, moderate (4-7) Last Admin: 04/06/17 09:49 Dose: 0.5 mg Sodium Chloride (Sodium Chloride 0.9%) 1,000 mls @ 75 mls/hr IV .[id number] [facility] Last Admin: 04/06/17 00:17 Dose: 75 mls/hr Ceftriaxone Sodium (Rocephin 1 Gram Ivpb) 1 gm in 100 mls @ 100 mls/hr IVPB DAILY [facility] PRN Reason: Protocol Stop: 04/08/17 10:59 Last Admin: 04/06/17 09:51 Dose: 100 mls/hr Metronidazole (Flagyl) 500 mg in 100 mls @ 100 mls/hr IVPB Q8 [facility] PRN Reason: Protocol Last Admin: 04/06/17 05:10 Dose: 100 mls/hr Lidocaine (Lidoderm) 1 ea TD 2200 [facility] Last Admin: 04/05/17 21:13 Dose: 1 ea Mirtazapine (Remeron) 15 mg PO HS [facility] Last Admin: 04/05/17 21:12 Dose: 15 mg Nicotine (Nicoderm Cq) 1 patch TD DAILY [facility] Last Admin: 04/05/17 10:15 Dose: 1 patch Ondansetron HCl (Zofran Inj) 4 mg IVP Q6H PRN PRN Reason: Nausea/Vomiting Last Admin: 04/05/17 08:33 Dose: 4 mg Tamsulosin HCl (Flomax) 0.4 mg PO DAILY [facility] Last Admin: 04/06/17 09:48 Dose: 0.4 mg Venlafaxine HCl (Effexor) 37.5 mg PO DAILY [facility] Last Admin: 04/06/17 09:48 Dose: 37.5 mg - Labs Labs: 04/05/17 12:30 04/05/17 12:30 PT 10.9 SECONDS (9.4-12.5) 04/04/17 08:30 INR 0.95 (0.93-1.08) 04/04/17 08:30 APTT 32.5 Seconds (25.1-36.5) 04/02/17 16:08 - Constitutional Appears: Well, Non-toxic - Head Exam Head Exam: ATRAUMATIC, NORMOCEPHALIC - Eye Exam Eye Exam: EOMI, Normal appearance - ENT Exam ENT Exam: Mucous Membranes Moist, Normal Oropharynx - Respiratory Exam Respiratory Exam: NORMAL BREATHING PATTERN. absent: Accessory Muscle Use - GI/Abdominal Exam GI & Abdominal Exam: absent: Guarding, Rigid Additional comments: LUQ tenderness - Extremities Exam Extremities Exam: Normal Inspection - Back Exam Back Exam: NORMAL INSPECTION. absent: CVA tenderness (L), CVA tenderness (R) - Neurological Exam Neurological Exam: Alert, Awake, Oriented x3 - Psychiatric Exam Psychiatric exam: Normal Affect, Normal Mood - Skin Skin Exam: Dry, Intact, Normal Color, Warm Assessment and Plan - Assessment and Plan (Free Text) Assessment: This is a 61 year old male with SMA syndrome. Plan: Continue with IV antibiotics. Patient's diet advanced to pureed, HHD. Patient tentatively scheduled for gastrojejunostomy on Monday. Pre-operative clearance over the weekend. Continue with nutrition per GI and primary. Case discussed with attending physician, Dr. Toscano.
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
--- NOTE | 2017-04-06 17:22 | PN ---
DATE: SUBJECTIVE: Brandyn Wang is seen again. The patient has a chronic loss of weight and has been unable to eat. Workup has been pretty benign, having ruled out an intestinal ischemia by arteriogram with a CAT scan, seems to have superior mesenteric artery syndrome with obstruction of the duodenum. Discussion with the patient through GI. We will plan laparotomy, laparoscopy, and possible gastroenterostomy on Monday. The only concern I have is the possible free air in the abdomen that seems to be localized. The abdomen is soft. His white count is normal. This slightly interferes with our decision, but right now we plan go to ahead on Monday. Rashawn Toscano MD
[2017-04-06] MEDS: Lidocaine 5% Patch TD SCH (21:20)
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
[2017-04-07] MEDS: metroNIDAZOLE IV 500 mg/100 ml 500 MG/100 ML BAG IVPB SCH ×3 (06:36→21:15)
--- NOTE | 2017-04-07 06:47 | CP.PCM.PN ---
<Astrid Little - Last Filed: 04/07/17 10:39> Subjective - Date & Time of Evaluation Date of Evaluation: 04/07/17 Time of Evaluation: 07:00 - Subjective Subjective: GI progress note for Dr De La Torre's service. Patient with no acute events overnight. Patient partially ate the puree food, with no pain, n/v. States he had an episode of loose bowel movement last night. No fevers or chills. Objective - Vital Signs/Intake and Output Vital Signs (last 24 hours): Temp Pulse Resp BP Pulse Ox 98.8 F 66 19 109/74 98 04/07/17 06:00 04/07/17 06:00 04/07/17 06:00 04/07/17 06:00 04/07/17 06:00 Intake and Output: 04/06/17 04/07/17 18:59 06:59 Intake Total 2200 Output Total 600 Balance 1600 - Medications Medications: Current Medications Carbamazepine (Tegretol) 100 mg PO BID [facility] PRN Reason: Protocol Last Admin: 04/06/17 09:48 Dose: 100 mg Folic Acid (Folic Acid) 1 mg PO DAILY [facility] Last Admin: 04/06/17 09:49 Dose: 1 mg Gabapentin (Neurontin) 300 mg PO TID [facility] PRN Reason: Protocol Last Admin: 04/06/17 17:49 Dose: 300 mg Heparin Sodium (Porcine) (Heparin) 5,000 units SC Q12 [facility] PRN Reason: Protocol Last Admin: 04/06/17 21:20 Dose: 5,000 units Hydromorphone HCl (Dilaudid) 0.5 mg IVP Q4H PRN PRN Reason: Pain, moderate (4-7) Last Admin: 04/07/17 06:36 Dose: 0.5 mg Sodium Chloride (Sodium Chloride 0.9%) 1,000 mls @ 75 mls/hr IV .[id number] [facility] Last Admin: 04/06/17 21:32 Dose: 75 mls/hr Ceftriaxone Sodium (Rocephin 1 Gram Ivpb) 1 gm in 100 mls @ 100 mls/hr IVPB DAILY [facility] PRN Reason: Protocol Stop: 04/08/17 10:59 Last Admin: 04/06/17 09:51 Dose: 100 mls/hr Metronidazole (Flagyl) 500 mg in 100 mls @ 100 mls/hr IVPB Q8 [facility] PRN Reason: Protocol Last Admin: 04/07/17 06:36 Dose: 100 mls/hr Lidocaine (Lidoderm) 1 ea TD 2200 [facility] Last Admin: 04/06/17 21:20 Dose: Not Given Mirtazapine (Remeron) 15 mg PO HS [facility] Last Admin: 04/06/17 21:21 Dose: 15 mg Nicotine (Nicoderm Cq) 1 patch TD DAILY [facility] Last Admin: 04/06/17 13:45 Dose: 1 patch Ondansetron HCl (Zofran Inj) 4 mg IVP Q6H PRN PRN Reason: Nausea/Vomiting Last Admin: 04/05/17 08:33 Dose: 4 mg Ropinirole HCl (Requip) 1 mg PO HS [facility] Last Admin: 04/06/17 21:44 Dose: 1 mg Tamsulosin HCl (Flomax) 0.4 mg PO DAILY [facility] Last Admin: 04/06/17 09:48 Dose: 0.4 mg Venlafaxine HCl (Effexor) 37.5 mg PO DAILY [facility] Last Admin: 04/06/17 09:48 Dose: 37.5 mg - Labs Labs: 04/05/17 12:30 04/05/17 12:30 PT 10.9 SECONDS (9.4-12.5) 04/04/17 08:30 INR 0.95 (0.93-1.08) 04/04/17 08:30 APTT 32.5 Seconds (25.1-36.5) 04/02/17 16:08 - Constitutional Appears: No Acute Distress, Older Than Stated Age, Cachectic, Chronically Ill - Head Exam Head Exam: ATRAUMATIC, NORMAL INSPECTION, NORMOCEPHALIC - Eye Exam Eye Exam: Normal appearance - ENT Exam ENT Exam: Mucous Membranes Moist - Neck Exam Neck Exam: Normal Inspection - Respiratory Exam Respiratory Exam: Clear to Ausculation Bilateral, NORMAL BREATHING PATTERN. absent: Prolonged Expiratory Phase, Rales, Rhonchi, Wheezes, Respiratory Distress, Stridor - Cardiovascular Exam Cardiovascular Exam: REGULAR RHYTHM, RRR, +S1, +S2. absent: Murmur - GI/Abdominal Exam GI & Abdominal Exam: Soft, Normal Bowel Sounds. absent: Distended, Firm, Guarding, Rigid, Tenderness, Organomegaly, Rebound - Extremities Exam Extremities Exam: Normal Inspection. absent: Pedal Edema - Back Exam Back Exam: NORMAL INSPECTION - Neurological Exam Neurological Exam: Alert, Awake, Oriented x3 - Psychiatric Exam Psychiatric exam: Normal Affect, Normal Mood - Skin Skin Exam: Dry, Intact, Warm Assessment and Plan - Assessment and Plan (Free Text) Assessment: Patient is a 61yo male with PMHx significant for CVA with left sided deficits, HTN, HLD who presented with abdominal pain, nausea and vomiting. Pt has history of 40-50lb weight loss since 2015 at time of his CVA. -SMA syndrome -Concern for bowel perforation/microperforation -Abdominal pain, nausea, vomiting due to SMA syndrome Plan: - Surgery following, planned for surgery on Monday for possible gastrojejunostomy - Continue anti emetics prn - Diet as tolerated. - On antibiotics ( Rocephin/flagyl) for possible microperforation - Medical management as per primary - Please contact Gi team if you have any questions. Patient seen, examined and case discussed with Dr De La Torre. <Matheus De La Torre - Last Filed: 04/07/17 11:00> Objective - Vital Signs/Intake and Output Vital Signs (last 24 hours): Temp Pulse Resp BP Pulse Ox 98.8 F 66 19 109/74 98 04/07/17 06:00 04/07/17 06:00 04/07/17 06:00 04/07/17 06:00 04/07/17 06:00 Intake and Output: 04/07/17 04/07/17 06:59 18:59 Intake Total 2200 Output Total 600 Balance 1600 - Medications Medications: Current Medications Carbamazepine (Tegretol) 100 mg PO BID [facility] PRN Reason: Protocol Last Admin: 04/07/17 10:37 Dose: 100 mg Folic Acid (Folic Acid) 1 mg PO DAILY [facility] Last Admin: 04/07/17 10:39 Dose: 1 mg Gabapentin (Neurontin) 300 mg PO TID [facility] PRN Reason: Protocol Last Admin: 04/07/17 10:38 Dose: 300 mg Heparin Sodium (Porcine) (Heparin) 5,000 units SC Q12 [facility] PRN Reason: Protocol Last Admin: 04/07/17 10:39 Dose: 5,000 units Hydromorphone HCl (Dilaudid) 0.5 mg IVP Q4H PRN PRN Reason: Pain, moderate (4-7) Last Admin: 04/07/17 06:36 Dose: 0.5 mg Sodium Chloride (Sodium Chloride 0.9%) 1,000 mls @ 75 mls/hr IV .[id number] [facility] Last Admin: 04/06/17 21:32 Dose: 75 mls/hr Ceftriaxone Sodium (Rocephin 1 Gram Ivpb) 1 gm in 100 mls @ 100 mls/hr IVPB DAILY [facility] PRN Reason: Protocol Stop: 04/08/17 10:59 Last Admin: 04/07/17 10:38 Dose: 100 mls/hr Metronidazole (Flagyl) 500 mg in 100 mls @ 100 mls/hr IVPB Q8 [facility] PRN Reason: Protocol Last Admin: 04/07/17 06:36 Dose: 100 mls/hr Lidocaine (Lidoderm) 1 ea TD 2200 [facility] Last Admin: 04/06/17 21:20 Dose: Not Given Mirtazapine (Remeron) 15 mg PO HS [facility] Last Admin: 04/06/17 21:21 Dose: 15 mg Nicotine (Nicoderm Cq) 1 patch TD DAILY [facility] Last Admin: 04/07/17 10:38 Dose: 1 patch Ondansetron HCl (Zofran Inj) 4 mg IVP Q6H PRN PRN Reason: Nausea/Vomiting Last Admin: 04/05/17 08:33 Dose: 4 mg Ropinirole HCl (Requip) 1 mg PO HS [facility] Last Admin: 04/06/17 21:44 Dose: 1 mg Ropinirole HCl (Requip) 0.5 mg PO DAILY [facility] Tamsulosin HCl (Flomax) 0.4 mg PO DAILY [facility] Last Admin: 04/07/17 10:39 Dose: 0.4 mg Venlafaxine HCl (Effexor) 37.5 mg PO DAILY [facility] Last Admin: 04/07/17 10:39 Dose: 37.5 mg - Labs Labs: 04/05/17 12:30 04/05/17 12:30 PT 10.9 SECONDS (9.4-12.5) 04/04/17 08:30 INR 0.95 (0.93-1.08) 04/04/17 08:30 APTT 32.5 Seconds (25.1-36.5) 04/02/17 16:08 Attending/Attestation - Attestation I have personally seen and examined this patient.: Yes I have fully participated in the care of the patient.: Yes I have reviewed all pertinent clinical information, including history, physical exam and plan: Yes Notes (Text): 04/07/17 10:58 I have seen and examined patient with GI fellow and medical record technician. No acute events overnight, he complains of one loose bowel movement this morning but denies abdominal pain, nausea, vomiting. Tolerating puree consistency food, asking for diet to be advanced. Review of vitals from today are normal. HTN CVA Post prandial abdominal pain, weight loss - suspected SMA syndrome - Diet as tolerated - Continue with antibiotic therapy given presence of bowel microperforation seen on prior imaging - Follow up surgical recommendations, possible intervention on monday with gastrojejunostomy - No further planned GI intervention, will sign off case. Please reconsult as necessary thank you.
--- NOTE | 2017-04-07 08:41 | CP.PCM.PN ---
Subjective - Date & Time of Evaluation Date of Evaluation: 04/07/17 Time of Evaluation: 07:20 - Subjective Subjective: General Surgery Progress Note for Dr. Toscano Patient seen and examined at bedside. Patient request details of the surgery plans. Patient denies any nausea, vomiting, abdominal pain and reports he tolerated his pureed diet. Nurse reports no events overnight. Objective - Vital Signs/Intake and Output Vital Signs (last 24 hours): Temp Pulse Resp BP Pulse Ox 98.8 F 66 19 109/74 98 04/07/17 06:00 04/07/17 06:00 04/07/17 06:00 04/07/17 06:00 04/07/17 06:00 Intake and Output: 04/07/17 04/07/17 06:59 18:59 Intake Total 2200 Output Total 600 Balance 1600 - Medications Medications: Current Medications Carbamazepine (Tegretol) 100 mg PO BID [facility] PRN Reason: Protocol Last Admin: 04/06/17 09:48 Dose: 100 mg Folic Acid (Folic Acid) 1 mg PO DAILY [facility] Last Admin: 04/06/17 09:49 Dose: 1 mg Gabapentin (Neurontin) 300 mg PO TID [facility] PRN Reason: Protocol Last Admin: 04/06/17 17:49 Dose: 300 mg Heparin Sodium (Porcine) (Heparin) 5,000 units SC Q12 [facility] PRN Reason: Protocol Last Admin: 04/06/17 21:20 Dose: 5,000 units Hydromorphone HCl (Dilaudid) 0.5 mg IVP Q4H PRN PRN Reason: Pain, moderate (4-7) Last Admin: 04/07/17 06:36 Dose: 0.5 mg Sodium Chloride (Sodium Chloride 0.9%) 1,000 mls @ 75 mls/hr IV .[id number] [facility] Last Admin: 04/06/17 21:32 Dose: 75 mls/hr Ceftriaxone Sodium (Rocephin 1 Gram Ivpb) 1 gm in 100 mls @ 100 mls/hr IVPB DAILY [facility] PRN Reason: Protocol Stop: 04/08/17 10:59 Last Admin: 04/06/17 09:51 Dose: 100 mls/hr Metronidazole (Flagyl) 500 mg in 100 mls @ 100 mls/hr IVPB Q8 [facility] PRN Reason: Protocol Last Admin: 04/07/17 06:36 Dose: 100 mls/hr Lidocaine (Lidoderm) 1 ea TD 2200 [facility] Last Admin: 04/06/17 21:20 Dose: Not Given Mirtazapine (Remeron) 15 mg PO HS [facility] Last Admin: 04/06/17 21:21 Dose: 15 mg Nicotine (Nicoderm Cq) 1 patch TD DAILY [facility] Last Admin: 04/06/17 13:45 Dose: 1 patch Ondansetron HCl (Zofran Inj) 4 mg IVP Q6H PRN PRN Reason: Nausea/Vomiting Last Admin: 04/05/17 08:33 Dose: 4 mg Ropinirole HCl (Requip) 1 mg PO HS [facility] Last Admin: 04/06/17 21:44 Dose: 1 mg Tamsulosin HCl (Flomax) 0.4 mg PO DAILY [facility] Last Admin: 04/06/17 09:48 Dose: 0.4 mg Venlafaxine HCl (Effexor) 37.5 mg PO DAILY [facility] Last Admin: 04/06/17 09:48 Dose: 37.5 mg - Labs Labs: 04/05/17 12:30 04/05/17 12:30 PT 10.9 SECONDS (9.4-12.5) 04/04/17 08:30 INR 0.95 (0.93-1.08) 04/04/17 08:30 APTT 32.5 Seconds (25.1-36.5) 04/02/17 16:08 - Constitutional Appears: Well, Non-toxic, No Acute Distress, Cachectic - Head Exam Head Exam: ATRAUMATIC, NORMOCEPHALIC - Eye Exam Eye Exam: EOMI, Normal appearance - ENT Exam ENT Exam: Mucous Membranes Moist, Normal Oropharynx - Neck Exam Neck Exam: Normal Inspection - Respiratory Exam Respiratory Exam: NORMAL BREATHING PATTERN. absent: Accessory Muscle Use - GI/Abdominal Exam GI & Abdominal Exam: Soft, Normal Bowel Sounds. absent: Tenderness - Extremities Exam Extremities Exam: Normal Inspection. absent: Calf Tenderness, Tenderness - Neurological Exam Neurological Exam: Alert, Awake, Oriented x3 - Psychiatric Exam Psychiatric exam: Normal Affect, Normal Mood - Skin Skin Exam: Dry, Intact, Normal Color, Warm Assessment and Plan - Assessment and Plan (Free Text) Assessment: This is a 61 year old male with SMA syndrome. Plan: Continue with IV antibiotics. Patient's diet advanced to mechanical soft (HHD). Patient tentatively scheduled for gastrojejunostomy on Monday. Pre-operative clearance over the weekend. Continue with nutrition per GI and primary. Case discussed with attending physician, Dr. Toscano
[2017-04-07] MEDS: cefTRIAXone 1 gm 1 GM/100 ML BAG IVPB SCH (10:38)
--- NOTE | 2017-04-07 11:13 | CP.PCM.PN ---
<Elma Solomon - Last Filed: 04/07/17 11:17> Subjective - Date & Time of Evaluation Date of Evaluation: 04/07/17 Time of Evaluation: 09:00 - Subjective Subjective: Neurology PGY 2-for Dr. Culp Pt states that he is able to fall asleep and remain asleep at night and did not notice leg kicking. No other neurological complaints Objective - Vital Signs/Intake and Output Vital Signs (last 24 hours): Temp Pulse Resp BP Pulse Ox 98.8 F 66 19 109/74 98 04/07/17 06:00 04/07/17 06:00 04/07/17 06:00 04/07/17 06:00 04/07/17 06:00 Intake and Output: 04/07/17 04/07/17 06:59 18:59 Intake Total 2200 Output Total 600 Balance 1600 - Medications Medications: Current Medications Carbamazepine (Tegretol) 100 mg PO BID [facility] PRN Reason: Protocol Last Admin: 04/07/17 10:37 Dose: 100 mg Folic Acid (Folic Acid) 1 mg PO DAILY [facility] Last Admin: 04/07/17 10:39 Dose: 1 mg Gabapentin (Neurontin) 300 mg PO TID [facility] PRN Reason: Protocol Last Admin: 04/07/17 10:38 Dose: 300 mg Heparin Sodium (Porcine) (Heparin) 5,000 units SC Q12 [facility] PRN Reason: Protocol Last Admin: 04/07/17 10:39 Dose: 5,000 units Hydromorphone HCl (Dilaudid) 0.5 mg IVP Q4H PRN PRN Reason: Pain, moderate (4-7) Last Admin: 04/07/17 06:36 Dose: 0.5 mg Sodium Chloride (Sodium Chloride 0.9%) 1,000 mls @ 75 mls/hr IV .[id number] [facility] Last Admin: 04/06/17 21:32 Dose: 75 mls/hr Ceftriaxone Sodium (Rocephin 1 Gram Ivpb) 1 gm in 100 mls @ 100 mls/hr IVPB DAILY [facility] PRN Reason: Protocol Stop: 04/08/17 10:59 Last Admin: 04/07/17 10:38 Dose: 100 mls/hr Metronidazole (Flagyl) 500 mg in 100 mls @ 100 mls/hr IVPB Q8 [facility] PRN Reason: Protocol Last Admin: 04/07/17 06:36 Dose: 100 mls/hr Lidocaine (Lidoderm) 1 ea TD 2200 [facility] Last Admin: 04/06/17 21:20 Dose: Not Given Mirtazapine (Remeron) 15 mg PO HS [facility] Last Admin: 04/06/17 21:21 Dose: 15 mg Nicotine (Nicoderm Cq) 1 patch TD DAILY [facility] Last Admin: 04/07/17 10:38 Dose: 1 patch Ondansetron HCl (Zofran Inj) 4 mg IVP Q6H PRN PRN Reason: Nausea/Vomiting Last Admin: 04/05/17 08:33 Dose: 4 mg Ropinirole HCl (Requip) 1 mg PO HS [facility] Last Admin: 04/06/17 21:44 Dose: 1 mg Ropinirole HCl (Requip) 0.5 mg PO DAILY [facility] Tamsulosin HCl (Flomax) 0.4 mg PO DAILY [facility] Last Admin: 04/07/17 10:39 Dose: 0.4 mg Venlafaxine HCl (Effexor) 37.5 mg PO DAILY [facility] Last Admin: 04/07/17 10:39 Dose: 37.5 mg - Labs Labs: 04/05/17 12:30 04/05/17 12:30 PT 10.9 SECONDS (9.4-12.5) 04/04/17 08:30 INR 0.95 (0.93-1.08) 04/04/17 08:30 APTT 32.5 Seconds (25.1-36.5) 04/02/17 16:08 - Constitutional Appears: No Acute Distress, Cachectic - Head Exam Head Exam: ATRAUMATIC, NORMAL INSPECTION, NORMOCEPHALIC - Eye Exam Eye Exam: EOMI, Normal appearance, PERRL Pupil Exam: NORMAL ACCOMODATION - ENT Exam ENT Exam: Mucous Membranes Moist - Neck Exam Additional comments: supple - Respiratory Exam Respiratory Exam: Clear to Ausculation Bilateral, NORMAL BREATHING PATTERN. absent: Rales, Rhonchi, Wheezes - Cardiovascular Exam Cardiovascular Exam: REGULAR RHYTHM, +S1, +S2. absent: Murmur - GI/Abdominal Exam GI & Abdominal Exam: Soft, Tenderness, Hyperactive Bowel Sounds - Neurological Exam Neurological Exam: Alert, Awake, CN II-XII Intact, Oriented x3 Additional comments: Speech: fluent, no aphasia Motor: 4/5 all extremities, with muscle wasting all extremities, LUE contracture Sensory: hyperalgesia. Diminished sensation on inner, anterior, lateral thighs b /l; Markedly diminish sensation below knees. Coordination: tremor resting and intentional DTR: increase babinski: + - Psychiatric Exam Psychiatric exam: Normal Affect, Normal Mood - Skin Skin Exam: Dry, Warm Assessment and Plan - Assessment and Plan (Free Text) Plan: Mr Brandyn Wang, 61 M, active smoker, with PMH of CVA with L sided weakness, chronic back pain on detention opioids, and restless leg syndrome, presents to the emergency department on Monday04/02/17, complaining of constant abdominal pain with nausea, vomiting, and decreased PO intake. CT A/P showed SMA syndrome and possible bowel perforation. GI team is managing the SMA syndrome. Pt refused jejunal feeding tube. Pt is exploring the option of strong procedure or gastro/duodeno-enterostomy. Pt is on rocephin and flagyl. Neurology was consulted for leg kicking that prevented pt from sleep. Restless leg syndrome Likely from Deconditioned state, cachetic with muscle wasting, spastic weakening from previous stroke - ropinarole 1mg HS and 0.5mg AM - PT/OT - Recommend subacute rehab - As for pain, continue lidoderm, gabapentin 300 tid, tegretol 100 bid per primary - As for emotional disorder, continue mirtazapine, venlafexine as per primary - After acute abdominal issue resolve, consider dietary consult s/r/d/w Dr. Culp <Saurabh Culp - Last Filed: 04/07/17 13:03> Objective - Vital Signs/Intake and Output Vital Signs (last 24 hours): Temp Pulse Resp BP Pulse Ox 98.8 F 66 19 109/74 98 04/07/17 06:00 04/07/17 06:00 04/07/17 06:00 04/07/17 06:00 04/07/17 06:00 Intake and Output: 04/07/17 04/07/17 06:59 18:59 Intake Total 2200 Output Total 600 Balance 1600 - Medications Medications: Current Medications Carbamazepine (Tegretol) 100 mg PO BID [facility] PRN Reason: Protocol Last Admin: 04/07/17 10:37 Dose: 100 mg Folic Acid (Folic Acid) 1 mg PO DAILY [facility] Last Admin: 04/07/17 10:39 Dose: 1 mg Gabapentin (Neurontin) 300 mg PO TID [facility] PRN Reason: Protocol Last Admin: 04/07/17 10:38 Dose: 300 mg Heparin Sodium (Porcine) (Heparin) 5,000 units SC Q12 [facility] PRN Reason: Protocol Last Admin: 04/07/17 10:39 Dose: 5,000 units Hydromorphone HCl (Dilaudid) 0.5 mg IVP Q4H PRN PRN Reason: Pain, moderate (4-7) Last Admin: 04/07/17 11:20 Dose: 0.5 mg Sodium Chloride (Sodium Chloride 0.9%) 1,000 mls @ 75 mls/hr IV .[id number] [facility] Last Admin: 04/06/17 21:32 Dose: 75 mls/hr Ceftriaxone Sodium (Rocephin 1 Gram Ivpb) 1 gm in 100 mls @ 100 mls/hr IVPB DAILY [facility] PRN Reason: Protocol Stop: 04/08/17 10:59 Last Admin: 04/07/17 10:38 Dose: 100 mls/hr Metronidazole (Flagyl) 500 mg in 100 mls @ 100 mls/hr IVPB Q8 [facility] PRN Reason: Protocol Last Admin: 04/07/17 06:36 Dose: 100 mls/hr Lidocaine (Lidoderm) 1 ea TD 2200 [facility] Last Admin: 04/06/17 21:20 Dose: Not Given Mirtazapine (Remeron) 15 mg PO HS [facility] Last Admin: 04/06/17 21:21 Dose: 15 mg Nicotine (Nicoderm Cq) 1 patch TD DAILY [facility] Last Admin: 04/07/17 10:38 Dose: 1 patch Ondansetron HCl (Zofran Inj) 4 mg IVP Q6H PRN PRN Reason: Nausea/Vomiting Last Admin: 04/05/17 08:33 Dose: 4 mg Ropinirole HCl (Requip) 1 mg PO [facility] Last Admin: 04/06/17 21:44 Dose: 1 mg Ropinirole HCl (Requip) 0.5 mg PO DAILY [facility] Tamsulosin HCl (Flomax) 0.4 mg PO DAILY [facility] Last Admin: 04/07/17 10:39 Dose: 0.4 mg Venlafaxine HCl (Effexor) 37.5 mg PO DAILY [facility] Last Admin: 04/07/17 10:39 Dose: 37.5 mg - Labs Labs: 04/05/17 12:30 04/05/17 12:30 PT 10.9 SECONDS (9.4-12.5) 04/04/17 08:30 INR 0.95 (0.93-1.08) 04/04/17 08:30 APTT 32.5 Seconds (25.1-36.5) 04/02/17 16:08 Attending/Attestation - Attestation I have personally seen and examined this patient.: Yes I have fully participated in the care of the patient.: Yes I have reviewed all pertinent clinical information, including history, physical exam and plan: Yes
[2017-04-07] MEDS: Lidocaine 5% Patch TD SCH (21:15)
--- NOTE | 2017-04-08 01:14 | PN ---
DATE: SUBJECTIVE: The patient is a 61-year-old male. The patient was seen and examined at the bedside. According to him, abdominal pain is getting better, but he has back pain. Surgical team advanced the diet. Does not look like in acute distress. Having pureed diet. No nausea or vomiting. Has episode of loose bowel movement last night. No fever, no chills. No hematuria or hematochezia. No swelling of the legs. PHYSICAL EXAMINATION VITAL SIGNS: Temperature 98.8, pulse 66, respiratory rate 18, blood pressure 109/74, pulse oximetry 98. HEENT: Head: Normocephalic, atraumatic. Eyes: PERRLA. Extraocular muscles intact. Conjunctivae clear. Nose patent. Mucous membranes are moist. NECK: Supple. No carotid bruits, JVD, or thyromegaly. CHEST: Bilaterally symmetrical. HEART: S1 and S2 positive. LUNGS: Clear to auscultation. ABDOMEN: Soft. Bowel sounds present. No organomegaly. EXTREMITIES: No edema. No cyanosis. NEUROLOGIC: The patient is awake and alert. Moving all 4 extremities. No focal deficits. MEDICATIONS: Tegretol, folic acid,, Neurontin, heparin, hydromorphone, NS, Rocephin, Flagyl, Lidoderm, Zofran, Requip, Flomax, Effexor. LABORATORY DATA: White blood cell 7.2, hemoglobin 9.2, hematocrit 29.7, platelets 364. Sodium 139, potassium 3.9, BUN 9, creatinine 0.7, glucose 94. ASSESSMENT AND PLAN: Mr. Brandyn Wang is a 61-year-old male with anemia, history of cerebrovascular accident with left-sided deficit, hypertension, hypercholesterolemia, came with abdominal pain, nausea, vomiting. The patient has history of losing 40-50 pounds of weight since 2015 at the time of his cerebrovascular accident and superior mesenteric artery syndrome, concern of bowel perforation/microperforation, chronic back pain syndrome. Surgery is planning surgery for Monday for possible gastrojejunostomy. Continue antiemetic. Diet as tolerated. On antibiotics, Rocephin. Add Flagyl for microperforation. Appreciated Dr. Matheus De La Torre's notes. Surgery is requesting preoperative clearance. The patient has a history of heavy smoking. We will call Pulmonary and Cardiology consult for clearance. Appreciated Dr. Suni's notes also. Gastrointestinal and deep venous thrombosis prophylaxes. Repeat labs. Radha Lantigua MD
[2017-04-08] MEDS: metroNIDAZOLE IV 500 mg/100 ml 500 MG/100 ML BAG IVPB SCH ×3 (06:14→23:35)
[2017-04-08] MEDS: cefTRIAXone 1 gm 1 GM/100 ML BAG IVPB SCH (09:50)
--- NOTE | 2017-04-08 14:08 | PN ---
DATE: 04/08/2017 NEURLOGY FOLLOWUP SUBJECTIVE: The patient is seen and examined at bedside. He has occasional drugs, but less noticed since the addition of ropinirole. No acute events overnight. He is currently on the general medical floor. PAST MEDICAL HISTORY: History of CVA with residual left-sided weakness, chronic back pain, on long-term opiates, restless legs syndrome. REVIEW OF SYSTEMS: A 14-point review of systems is negative except as per the HPI. ALLERGIES: ALLERGIC TO SULFA DRUGS. MEDICATIONS: Reviewed by nurse reconciliation sheet. LABORATORY DATA: No new labs done today. PHYSICAL EXAMINATION: VITAL SIGNS: Temperature 98.8, pulse rate 66, blood pressure 109/74, respiratory rate of 18, oxygen saturation 98% on room air. GENERAL: The patient is sitting up in bed, in no acute distress. HEENT: Atraumatic, normocephalic. PERRLA. Extraocular muscles intact. NECK: Supple. No JVD, no adenopathy noted. LUNGS: Clear to auscultation. No adventitious sounds. HEART: S1 and S2. Normal rate and rhythm. No murmurs, rubs or gallops. ABDOMEN: Soft, nontender and nondistended. Bowel sounds are present. EXTREMITIES: No clubbing. No cyanosis. Peripheral pulses 2+ felt bilaterally. NEUROLOGIC: The patient is very cachectic looking. Speech is fluent without any errors. Cranial nerves II through XII intact. He is A and O x3. Motor exam: 4/5 in all extremities with muscle wasting of all extremities. Left upper extremity contracture. Sensory exam: Diminished sensation to light touch, pinprick, proprioception up to the calves bilaterally. Coordination: Tremors on vrijlz-do-upwn, intentional. DTRs are 2+ throughout. Toes downgoing bilaterally. Coordination: [id number] intact with left upper extremity contracture. Gait is deferred for now. ASSESSMENT AND PLAN: This is a 61-year-old man, active smoker, history of cerebrovascular accident with residual left-sided weakness; chronic back pain, on long-term opiates; very cachectic looking with muscle wasting; restless legs syndrome. Presented to the hospital with abdominal pain, nausea and vomiting, decreased p.o. intake, superior mesenteric artery syndrome and undergoing surgery and gastrointestinal management. I was consulted for his restless leg. Since they are kicking that prevented him from sleeping at night. He has restless legs syndrome and he is very deconditioned and cachectic and has muscle wasting and is very spastic from previous cerebrovascular accident. At this time, I recommend we will keep on ropinirole 1 mg p.o. b.i.d. Physical therapy/occupational therapy, subacute rehab. As for pain control, continue Lidoderm and gabapentin 300 mg p.o. b.i.d. and Tegretol 100 mg p.o. b.i.d. as per primary and continue current present medical management. Thank you for this followup. Saurabh Culp MD
--- NOTE | 2017-04-08 14:10 | CARD ---
APPROVED REPORT EXAM: Two-dimensional and M-mode echocardiogram with Doppler and color Doppler. INDICATION 2D DIMENSIONS IVSd1.3 (0.7-1.1cm)LVDd3.8 (3.9-5.9cm) PWd1.4 (0.7-1.1cm)LVDs2.7 (2.5-4.0cm) FS (%) 27.9 %LVEF (%)54.8 (>50%) M-Mode DIMENSIONS Left Atrium (MM)3.20 (2.5-4.0cm)Aortic Root3.20 (2.2-3.7cm) Aortic Cusp Exc.2.20 (1.5-2.0cm) Aortic Valve AoV Peak Mmtvvzdt734.0cm/Errol Peak GR.6mmHg Mitral Valve MV E Ikpydxka45.2cm/sMV A Aqmbdxhj19.1cm/sE/A ratio0.8 TDI Lateral E' Peak V9.91cm/sMedial E' Peak V9.02cm/sE/Lateral E'6.0 E/Medial E'6.6 Tricuspid Valve TR Peak Mbrreapy976jh/sRAP QWIRJKAA74lxVeKK Peak Gr.24mmHg OKKH45hnHn LEFT VENTRICLE The left ventricle is normal size. There is mild concentric left ventricular hypertrophy. The left ventricular function is normal.EF-55-60% There is normal LV segmental wall motion. Transmitral Doppler flow pattern is Grade III-reversible restrictive diastolic dysfunction. No left ventricle thrombus noted on this study. There is no ventricular septal defect visualized. There is no left ventricular aneurysm. There is no mass noted in the left ventricle. RIGHT VENTRICLE The right ventricle is normal size. There is normal right ventricular wall thickness. The right ventricular systolic function is normal. ATRIA The left atrium size is normal. The right atrium size is normal. The interatrial septum is intact with no evidence for an atrial septal defect. AORTIC VALVE The aortic valve is thickened but opens well. The aortic valve is mildly to moderately sclerotic. No aortic regurgitation is present. There is no aortic valvular stenosis. There is no aortic valvular vegetation. MITRAL VALVE The mitral valve is thickened but opens well. Mitral annular calcification is mild. Mitral regurgitation is trace. There is no mitral valve stenosis. There is no evidence of mitral valve prolapse. TRICUSPID VALVE The tricuspid valve leaflets are thickened , but open well. There is trace tricuspid regurgitation.RVSP-34 mmof hg. There is no tricuspid valve stenosis. There is no tricuspid valve prolapse or vegetation. PULMONIC VALVE The pulmonary valve is normal in structure. GREAT VESSELS The aortic root is normal in size. The ascending aorta is normal in size. The pulmonary artery is normal. The IVC is normal in size and collapses >50% with inspiration. PERICARDIAL EFFUSION There is no pleural effusion. There is a trace pericardial effusion. <Conclusion> The left ventricle is normal size. There is mild concentric left ventricular hypertrophy. The left ventricular function is normal.EF-55-60% Mitral regurgitation is trace. There is trace tricuspid regurgitation.RVSP-34 mmof hg. The IVC is normal in size and collapses >50% with inspiration. There is a trace pericardial effusion. No Vegetation or thrombus noted.
--- NOTE | 2017-04-08 14:27 | CP.PCM.PN ---
Subjective - Date & Time of Evaluation Date of Evaluation: 04/08/17 Time of Evaluation: 07:45 - Subjective Subjective: Surgery Progress note. Dr. Toscano Pt seen and examined at bedside. No acute events overnight. Does report some increased abdominal pain after meal last night. No N/V/D. No F/C. No new complaints. Objective - Vital Signs/Intake and Output Vital Signs (last 24 hours): Temp Pulse Resp BP Pulse Ox 98.8 F 66 19 109/74 98 04/07/17 06:00 04/07/17 06:00 04/07/17 06:00 04/07/17 06:00 04/07/17 06:00 Intake and Output: 04/08/17 04/08/17 06:59 18:59 Intake Total 120 Balance 120 - Medications Medications: Current Medications Carbamazepine (Tegretol) 100 mg PO BID [facility] PRN Reason: Protocol Last Admin: 04/08/17 09:49 Dose: 100 mg Folic Acid (Folic Acid) 1 mg PO DAILY [facility] Last Admin: 04/08/17 09:49 Dose: 1 mg Gabapentin (Neurontin) 300 mg PO TID [facility] PRN Reason: Protocol Last Admin: 04/08/17 09:49 Dose: 300 mg Heparin Sodium (Porcine) (Heparin) 5,000 units SC Q12 [facility] PRN Reason: Protocol Last Admin: 04/08/17 09:50 Dose: 5,000 units Hydromorphone HCl (Dilaudid) 0.5 mg IVP Q4H PRN PRN Reason: Pain, moderate (4-7) Last Admin: 04/08/17 13:01 Dose: 0.5 mg Sodium Chloride (Sodium Chloride 0.9%) 1,000 mls @ 75 mls/hr IV .[id number] [facility] Last Admin: 04/06/17 21:32 Dose: 75 mls/hr Metronidazole (Flagyl) 500 mg in 100 mls @ 100 mls/hr IVPB Q8 [facility] PRN Reason: Protocol Last Admin: 04/08/17 06:14 Dose: 100 mls/hr Lidocaine (Lidoderm) 1 ea TD 2200 [facility] Last Admin: 04/07/17 21:15 Dose: Not Given Metoprolol Tartrate (Lopressor) 12.5 mg PO BID [facility] Mirtazapine (Remeron) 15 mg PO HS [facility] Last Admin: 04/07/17 21:15 Dose: 15 mg Nicotine (Nicoderm Cq) 1 patch TD DAILY [facility] Last Admin: 04/08/17 09:50 Dose: 1 patch Ondansetron HCl (Zofran Inj) 4 mg IVP Q6H PRN PRN Reason: Nausea/Vomiting Last Admin: 04/05/17 08:33 Dose: 4 mg Ropinirole HCl (Requip) 1 mg PO AMHS [facility] Tamsulosin HCl (Flomax) 0.4 mg PO DAILY [facility] Last Admin: 04/08/17 09:50 Dose: 0.4 mg Tramadol HCl (Ultram) 50 mg PO TID [facility] Last Admin: 04/08/17 09:49 Dose: 50 mg Venlafaxine HCl (Effexor) 37.5 mg PO DAILY [facility] Last Admin: 04/08/17 12:56 Dose: 37.5 mg - Labs Labs: 04/05/17 12:30 04/05/17 12:30 PT 10.9 SECONDS (9.4-12.5) 04/04/17 08:30 INR 0.95 (0.93-1.08) 04/04/17 08:30 APTT 32.5 Seconds (25.1-36.5) 04/02/17 16:08 - Constitutional Appears: Non-toxic, No Acute Distress - Head Exam Head Exam: ATRAUMATIC, NORMAL INSPECTION, NORMOCEPHALIC - Eye Exam Eye Exam: EOMI. absent: Scleral icterus - ENT Exam ENT Exam: Mucous Membranes Moist - Respiratory Exam Respiratory Exam: NORMAL BREATHING PATTERN. absent: Accessory Muscle Use, Respiratory Distress - GI/Abdominal Exam GI & Abdominal Exam: Soft, Tenderness (mild epigastric tenderness). absent: Firm, Guarding, Rigid - Extremities Exam Extremities Exam: Normal Inspection. absent: Calf Tenderness - Back Exam Back Exam: NORMAL INSPECTION - Skin Skin Exam: Dry, Intact, Normal Color, Warm Assessment and Plan - Assessment and Plan (Free Text) Assessment: 61yo M with possible SMA syndrome. - Possible OR 04/10/17. NPO past mn Monday - Repeat CT w PO contrast Monday - Pain management - Continue Abx - Will need pre-op clearance Further recs as per Dr. Everton Khalil PGY1 surgery pager: [phone]
[2017-04-08] MEDS: Sodium Chloride 0.9% 1,000 ML IV SCH (17:56)
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
--- NOTE | 2017-04-09 00:44 | PN ---
DATE: SUBJECTIVE: Patient is a 61-year-old male. Patient seen and examined on the bedside. Looks comfortable. Still complaining about back pain, but abdominal pain is better. No nausea, vomiting or diarrhea. No fever. No chills. No headache. No dizziness. No hematuria or hematochezia. PHYSICAL EXAMINATION: VITAL SIGNS: Temperature 98.8, pulse 66, respiratory rate 18, blood pressure 109/74 and pulse oximetry 98%. HEENT: Head is normocephalic, atraumatic. Eyes: PERRLA. Extraocular muscles are intact. Conjunctivae are clear. Nose is patent. NECK: Supple. No carotid bruits. No JVD. No thyromegaly. CHEST: Bilaterally symmetrical. HEART: S1 and S2 positive. LUNGS: Clear to auscultation. ABDOMEN: Soft. Bowel sounds positive. No organomegaly. EXTREMITIES: No edema. No cyanosis. NEUROLOGIC: The patient is awake and alert. Moving all 4 extremities. No focal deficits. MEDICATIONS: Tegretol, folic acid, Neurontin, heparin, Dilaudid, sodium chloride, Flagyl, Lidoderm, Lopressor, Nicoderm, Zofran, Requip, Flomax, tramadol, Effexor. LABORATORY DATA: White blood cell 7.4, hemoglobin 9.2, hematocrit 29.7, platelets 364. Sodium 138, potassium 3.9, BUN 9, creatinine 0.5, glucose 94. ASSESSMENT AND PLAN: Mr. 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 According to surgery Monday OR, n.p.o. after midnight. Monday they want to do a CAT scan with p.o. contrast. getting pain management for chronic back pain. Pulmonary and Cardiology services called for preoperative clearance. Seen by Dr. Saurabh Culp. Echo is done by Dr. Velvet Bey today. Patient has still cerebrovascular accident with left-sided weakness, chronic back pain syndrome on long-term opiates, restless legs syndrome, history of actively smoking, cachectic looking with muscle wasting, restless leg syndrome, lost weight in a couple of months, may be superior mesenteric artery syndrome. Because of restless legs syndrome due to kicking, patient was saying his sleep was getting affected. Discussion done with surgical elastic knitter. Gastrointestinal prophylaxis. Repeat labs. Pain management. Radha Lantigua MD [facility] # [id number] [place]
[2017-04-09] MEDS: Lidocaine 5% Patch TD SCH ×3 (03:02→22:34)
[2017-04-09] MEDS: metroNIDAZOLE IV 500 mg/100 ml 500 MG/100 ML BAG IVPB SCH ×3 (05:35→22:23)
[2017-04-09] MEDS ORDERED: Barium Sulfate Susp 2.1% w/v, 2.0% w/w 450 mL Bottle PO ONE (06:21)
[2017-04-09] MEDS ORDERED: Iohexol 350 MG/100 ML VIAL ONE (09:08)
--- NOTE | 2017-04-09 09:27 | CP.PCM.PN ---
Subjective - Date & Time of Evaluation Date of Evaluation: 04/09/17 Time of Evaluation: 07:20 - Subjective Subjective: Patient seen and examined at bedside. Denies abdominal pain, nausea, vomiting, or any otehr symptoms. Patient states he is passin gas and tolerating his diet. Objective - Vital Signs/Intake and Output Vital Signs (last 24 hours): Temp Pulse Resp BP Pulse Ox 98.8 F 75 20 134/83 97 04/09/17 00:00 04/09/17 00:00 04/09/17 00:00 04/09/17 00:00 04/09/17 00:00 Intake and Output: 04/09/17 04/09/17 06:59 18:59 Intake Total 240 Output Total 600 Balance -360 - Medications Medications: Current Medications Carbamazepine (Tegretol) 100 mg PO BID [facility] PRN Reason: Protocol Last Admin: 04/08/17 17:56 Dose: 100 mg Folic Acid (Folic Acid) 1 mg PO DAILY [facility] Last Admin: 04/08/17 09:49 Dose: 1 mg Gabapentin (Neurontin) 300 mg PO TID [facility] PRN Reason: Protocol Last Admin: 04/08/17 17:58 Dose: 300 mg Heparin Sodium (Porcine) (Heparin) 5,000 units SC Q12 [facility] PRN Reason: Protocol Last Admin: 04/08/17 23:34 Dose: 5,000 units Hydromorphone HCl (Dilaudid) 0.5 mg IVP Q4H PRN PRN Reason: Pain, moderate (4-7) Last Admin: 04/09/17 07:00 Dose: 0.5 mg Sodium Chloride (Sodium Chloride 0.9%) 1,000 mls @ 75 mls/hr IV .[id number] [facility] Last Admin: 04/08/17 17:56 Dose: 75 mls/hr Metronidazole (Flagyl) 500 mg in 100 mls @ 100 mls/hr IVPB Q8 [facility] PRN Reason: Protocol Last Admin: 04/09/17 05:35 Dose: 100 mls/hr Lidocaine (Lidoderm) 1 ea TD 2200 [facility] Last Admin: 04/09/17 03:02 Dose: Not Given Metoprolol Tartrate (Lopressor) 12.5 mg PO BID [facility] Last Admin: 04/08/17 17:58 Dose: 12.5 mg Mirtazapine (Remeron) 15 mg PO HS [facility] Last Admin: 04/08/17 23:36 Dose: 15 mg Nicotine (Nicoderm Cq) 1 patch TD DAILY [facility] Last Admin: 04/08/17 09:50 Dose: 1 patch Ondansetron HCl (Zofran Inj) 4 mg IVP Q6H PRN PRN Reason: Nausea/Vomiting Last Admin: 04/05/17 08:33 Dose: 4 mg Ropinirole HCl (Requip) 1 mg PO AMHS [facility] Last Admin: 04/08/17 23:36 Dose: 1 mg Tamsulosin HCl (Flomax) 0.4 mg PO DAILY [facility] Last Admin: 04/08/17 09:50 Dose: 0.4 mg Tramadol HCl (Ultram) 50 mg PO TID [facility] Last Admin: 04/08/17 17:57 Dose: 50 mg Venlafaxine HCl (Effexor) 37.5 mg PO DAILY [facility] Last Admin: 04/08/17 12:56 Dose: 37.5 mg - Labs Labs: 04/05/17 12:30 04/05/17 12:30 PT 10.9 SECONDS (9.4-12.5) 04/04/17 08:30 INR 0.95 (0.93-1.08) 04/04/17 08:30 APTT 32.5 Seconds (25.1-36.5) 04/02/17 16:08 - Constitutional Appears: Non-toxic, No Acute Distress, Cachectic - Head Exam Head Exam: ATRAUMATIC, NORMOCEPHALIC - Eye Exam Eye Exam: Normal appearance. absent: Conjunctival injection, Scleral icterus - ENT Exam ENT Exam: Mucous Membranes Moist, Normal Oropharynx - Respiratory Exam Respiratory Exam: NORMAL BREATHING PATTERN. absent: Accessory Muscle Use, Respiratory Distress - GI/Abdominal Exam GI & Abdominal Exam: Soft. absent: Distended, Tenderness - Neurological Exam Neurological Exam: Alert, Awake, Oriented x3 - Psychiatric Exam Psychiatric exam: Normal Affect, Normal Mood - Skin Skin Exam: Dry, Intact, Normal Color, Warm Assessment and Plan - Assessment and Plan (Free Text) Assessment: 61M with chronic abdominal pain, ansuea an vomiting with probable SMA syndrome Plan: OR 2/5 for laparoscopic gastrojejunostomy NPO after midnight CT with PO and IV contrast this AM AM CBC/BMP/mg/phos/PT/PTT, type and cross for 2 units PRBC on hold for OR Consent in chart Cardiology risk assessment: may proceed with moderate risk Discussed with DR. Everton Granados, PGY2
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
--- NOTE | 2017-04-09 11:40 | CT ---
PROCEDURE: CT Abdomen and Pelvis with contrast HISTORY: interval changes. Eval SMA syndrome COMPARISON: 04/03/2017 TECHNIQUE: Contrast dose: 100 cc of Omnipaque 350 Radiation dose: Total exam DLP = 243 mGy-cm. This CT exam was performed using one or more of the following dose reduction techniques: Automated exposure control, adjustment of the mA and/or kV according to patient size, and/or use of iterative reconstruction technique. FINDINGS: LOWER THORAX: Unremarkable. LIVER: Unremarkable. No gross lesion or ductal dilatation. GALLBLADDER AND BILE DUCTS: Unremarkable. PANCREAS: Unremarkable. No gross lesion or ductal dilatation. SPLEEN: Unremarkable. ADRENALS: Unremarkable. No mass. KIDNEYS AND URETERS: Unremarkable. No hydronephrosis. No solid mass. VASCULATURE: There is a 3 cm infrarenal abdominal aortic aneurysm BOWEL: Contrast is seen throughout the small bowel and colon with no evidence of obstruction. The previous study showed a small amount of extra luminal air in the pelvis which is no longer seen APPENDIX: Normal appendix. PERITONEUM: Unremarkable. No free fluid. No free air. LYMPH NODES: Unremarkable. No enlarged lymph nodes. BLADDER: Unremarkable. REPRODUCTIVE: Unremarkable. BONES: No acute fracture. OTHER FINDINGS: None. IMPRESSION: Contrast is seen throughout the small bowel and colon with no evidence of obstruction. The previous study showed a small amount of extra luminal air in the pelvis which is no longer seen
--- NOTE | 2017-04-09 12:25 | CP.PCM.PCO ---
Physician Communication Note - Physician Communication Note Physician Communication Note: Patient refusing labs today--will re-discuss later
[2017-04-09 15:46] LABS: HEMOGLOBIN 8.9 g/dL (14.0-18.0); MEAN CELL VOLUME 89.9 fl (80.0-105.0); MEAN CORPUSCULAR HEMOGLOBIN 28.1 pg (25.0-35.0); MEAN CORPUSCULAR HGB CONC 31.2 g/dl (31.0-37.0); MEAN PLATELET VOLUME 9.3 fl (7.0-11.0); RBC 3.17 10^6/uL (3.5-6.1); RED CELL DISTRIBUTION WIDTH 18.1 % (11.5-14.5); WHITE BLOOD COUNT 7.9 10^3/ul (4.5-11.0)
[2017-04-09 15:57] LABS: ALB/GLOB RATIO 1.3 (1.1-1.8); ALBUMIN 3.1 g/dL (3.0-4.8); ALT/SGPT 22 U/L (7-56); AST/SGOT 20 U/L (17-59); BLOOD UREA NITROGEN 5 mg/dL (7-21); CALCIUM 8.8 mg/dL (8.4-10.5); GFR AFRICAN-AMERICAN > 60; GFR NON-AFRICAN AMERICAN > 60
[2017-04-09 16:02] LABS: INR 1.09 (0.93-1.08); PARTIAL THROMBOPLASTIN TIME 32.7 Seconds (25.1-36.5); PROTHROMBIN TIME 12.5 SECONDS (9.4-12.5)
--- NOTE | 2017-04-09 18:33 | PN ---
DATE: REASON FOR CONSULTATION AND FOLLOWUP: Preop evaluation and risk stratification for abdominal surgery for possible small bowel resection. SUBJECTIVE: Patient denies any chest pain, shortness of breath, any palpitation. Seen in having CAT scan. OBJECTIVE AND PHYSICAL EXAMINATION: GENERAL: Not in apparent distress. VITAL SIGNS: Temperature afebrile, heart rate 77, blood pressure 134/83. HEENT: PERRLA. Extraocular muscles are intact. NECK: Supple. No carotid bruit or thyromegaly. CHEST: Clear to auscultation. HEART: S1 and S2 regular. ABDOMEN: Soft. EXTREMITIES: Clubbing and cyanosis, negative. LABORATORY DATA: Blood workup as follows: WBC 7.8, hemoglobin 9.8, hematocrit 29.7, and platelet count 364. Chemistry shows sodium 138, potassium 3.9, chloride 106, carbon dioxide 25, anion gap of 11, BUN 9, creatinine 0.5. Total bilirubin is 0.2, AST 15, ALT 21, total protein 6, albumin 3.3, albumin and globulin ratio 1.2. Patient is waiting for CAT scan for preop evaluation. IMPRESSION: Preoperative evaluation and risk stratification for small bowel obstruction, a small microperforation, history of narcotic analgesics, history of cerebrovascular accident. No evidence of chest pain though patient has multiple risk factors for coronary artery disease, but no documented coronary artery disease, no evidence of ischemia, no evidence of congestive heart failure, history of arrhythmia. Patient can go to surgery with [id number] risk because of underlying comorbidity. Patient is to continue perioperative beta michelle. Yesterday, patient also underwent echo to assess left ventricular function; that echo revealed ejection fraction of 55% to 60%, trace mitral regurgitation, trace tricuspid regurgitation, trace pericardial effusion. RECOMMENDATIONS: As mentioned, patient is cleared to go for the surgery tomorrow; there is no absolute contraindication because no evidence of ischemia, no evidence of arrhythmia or congestive heart failure. Continue perioperative beta michelle. We will follow with you. I will repeat the lab in the morning. Thank you, Dr. Lantigua, for providing me the opportunity in taking care of the patient, Brandyn Wang. Velvet Bey MD [facility] # [id number]
--- NOTE | 2017-04-10 02:29 | PN ---
DATE: 04/09/2017 PULMONARY PROGRESS NOTE REFERRING PHYSICIAN: Dr. Lantigua. SUBJECTIVE: The patient is lying in the bed, sleepy, arousable. Night was unremarkable. No headache, no rhinitis. No nausea, still has abdominal pain. Leg movement is better. OBJECTIVE: GENERAL: In no acute distress. VITAL SIGNS: Temperature is 99, heart rate 78, respiratory rate is 20, blood pressure 146/94, pulse ox 98% on room air. HEENT: Moist mucous membranes on palpation. NECK: Supple. No JVD. LUNGS: Have a fair airflow with rhonchi. HEART: S1 and S2. ABDOMEN: Soft, mild epigastric tenderness. EXTREMITIES: No edema. NEUROLOGIC: Sleepy, arousable, follows simple commands. MEDICATIONS: He is on Dilaudid 0.5 mg q. 4 hours p.r.n., Effexor 37.5 mg daily, Flagyl 500 mg q. 8 hour, Flomax 0.4 mg daily, folic acid 1 mg daily, heparin 5000 units subcutaneous q. 12 hour, Lidoderm patch daily, metoprolol tartrate 12.5 mg twice a day, gabapentin 300 mg 3 times a day, Nicoderm patch daily, mirtazapine 15 mg h.s., ReQuip 1 mg a.m. and at bedtime, IV fluid normal saline 75 mL per hour, Tegretol 100 mg twice a day, Ultram 50 mg 3 times a day and Zofran p.r.n. basis. LABORATORY DATA: Shows hemoglobin 8.9, hematocrit 28.5, WBC 7.9, platelet count is 331. INR 1.09, PTT is 33. Sodium 140, potassium 3.7, chloride 101, bicarbonate 29, BUN 5, creatinine 0.5, glucose 125, calcium is 8.8, AST 20, ALT is 22, alkaline phosphatase is 70, albumin is 3.1. Had a repeat CT of the abdomen and pelvis done yesterday, which shows contrast seen throughout the small bowel and colon with no evidence of obstruction. The previous study showed a small amount of extraluminal air in the pelvis, which is no longer seen. IMPRESSION AND PLAN: Questionable restless legs syndrome, history of cerebrovascular accident, chronic pain syndrome, opioid dependent, malnourished, questionable visceral perforation. From a Pulmonary point of view, doing okay. Patient likes to stop smoking. On pain medication. Also on ReQuip. GI followup. Gastric prophylaxis, sequential compression devices to lower extremities. Thank you and we will follow with you. Velvet Castillo MD
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
[2017-04-10] MEDS: metroNIDAZOLE IV 500 mg/100 ml 500 MG/100 ML BAG IVPB SCH ×2 (06:46→23:21)
[2017-04-10] MEDS ORDERED: Propofol 10 mg/ml Inj (20 ML) ONE (10:20)
[2017-04-10] MEDS ORDERED: Midazolam 2 MG/2 ML VIAL ONE (10:21)
[2017-04-10] MEDS ORDERED: Rocuronium 10 mg/ml (5 ml) ONE (10:22)
[2017-04-10] MEDS ORDERED: Bupivacaine 0.5% Inj(30mL) ONE (10:30)
[2017-04-10] MEDS ORDERED: Bupivacaine 0.25% Inj(30mL) ONE (12:07)
[2017-04-10] MEDS ORDERED: Glycopyrrolate 0.2 mg/ml (2ml vial) ONE (12:18)
[2017-04-10] MEDS ORDERED: Neostigmine Methylsulfate 3mg/3ml Syringe IV ONE (12:18)
[2017-04-10] MEDS ORDERED: HYDROmorphone 0.5 mg/0.5 ml ISec IVP PRN ×3 (12:41→17:40)
[2017-04-10] MEDS ORDERED: Morphine 2 mg/ml ISec IVP PRN (12:41)
[2017-04-10] MEDS ORDERED: Lactated Ringer's 1,000 ML IV SCH ×2 (12:45→13:00)
[2017-04-10] MEDS ORDERED: Morphine 5 MG/ML SYRINGE IV PRN ×2 (12:46→14:45)
--- NOTE | 2017-04-10 12:51 | PCM.SURG1 ---
Surgeon's Initial Post Op Note - Surgeon's Notes Surgeon: Dr. Toscano Engraving Supervisor: Dr. Galvin PGY3 Type of Anesthesia: General Endo Pre-Operative Diagnosis: SMA syndrome, partial SBO Operative Findings: engorged vessel anatomy throughout abdomen, patent gastric- jejunal anastomosis w/o tension Post-Operative Diagnosis: same Operation Performed: laparoscopic converted to open gastrojejunostomy Specimen/Specimens Removed: anastomotic tissue Estimated Blood Loss: EBL {In ML}: 15 Blood Products Given: N/A Drains Used: No Drains Post-Op Condition: Good Date of Surgery/Procedure: 04/10/17 Time of Surgery/Procedure: 12:51
[2017-04-10] MEDS ORDERED: HYDROmorphone 0.5 mg/0.5 ml ISec ONE ×4 (12:59→14:05)
[2017-04-10] MEDS ORDERED: HYDROmorphone 0.5 mg/0.5 ml ISec IVP ONE ×5 (12:59→15:34)
--- NOTE | 2017-04-10 16:00 | CP.PCM.PCO ---
Physician Communication Note - Physician Communication Note Physician Communication Note: Hold DVT prophylaxis until am labs on 04/11
[2017-04-10] MEDS: HYDROmorphone 0.5 mg/0.5 ml ISec IVP PRN (20:07)
[2017-04-10] MEDS ORDERED: HYDROmorphone 1 mg/ml PCA 25 ML IV PRN (21:38)
[2017-04-10] MEDS ORDERED: HYDROmorphone 0.5 mg/0.5 ml ISec IVP STA (21:38)
[2017-04-10] MEDS ORDERED: HYDROmorphone 0.2 mg/ml (25ml) 25 ML IV PRN (21:56)
--- NOTE | 2017-04-10 23:49 | PN ---
DATE: 04/10/2017 PULMONARY PROGRESS NOTE REFERRING PHYSICIAN: Dr. Lantigua. SUBJECTIVE: He is lying in the bed, scheduled for laparoscopic procedure for gastrojejunal anastomosis. There is no headache. No rhinitis. No nausea. No vomiting. Legs seem better. OBJECTIVE: GENERAL: In no acute distress. VITAL SIGNS: Temperature 98, heart rate is 85, respiratory rate is 17, blood pressure 129/77, pulse ox 100% on room air. HEENT: Moist mucous membrane. No ulcer or thrush noted. NECK: Supple. No JVD. LUNGS: Fair airflow with rhonchi. HEART: S1, S2. ABDOMEN: Positive bowel sounds. Mild epigastric tenderness. EXTREMITIES: There is no edema. NEUROLOGIC: Awake, alert, and follows simple command. MEDICATIONS: He is on Dilaudid 0.5 mg q.4 hour p.r.n., Effexor 37.5 mg daily, Flagyl 500 mg q.8 hours, Flomax 0.4 mg daily, folic acid 1 mg daily, heparin 5000 units subcu q.12 hours, lactated Ringer 75 mL/hour, Lidoderm patch in the affected area, metoprolol tartarate 12.5 mg twice a day, Neurontin 300 mg three times a day, Nicoderm patch daily, mirtazapine 15 mg at bedtime, Requip 1 mg a.m. and at bedtime, Tegretol 100 mg twice a day, Zofran p.r.n. basis. LABORATORY DATA: Reviewed. No new lab is available since yesterday. ASSESSMENT AND PLAN: Restless leg syndrome, cerebrovascular accident, chronic pain syndrome, opioid dependant, malnourished, questionable visceral perforation. Patient has superior mesenteric artery syndrome, so scheduled for gastrojejunostomy anastomosis. Pulmonary point of view, doing okay. Keep head elevated at 45 degrees. Pulmonary status optimized for surgery. Velvet Castillo MD
--- NOTE | 2017-04-11 02:52 | PN ---
DATE: SUBJECTIVE: The patient is seen and examined at the bedside, status post surgery, complaining about abdominal pain. No nausea, vomiting, or diarrhea. No passing of gas. No headache, no dizziness. No fever, no chills. No hematuria, no hematochezia. PHYSICAL EXAMINATION: VITAL SIGNS: Temperature 98.8, pulse 85, blood pressure 138/82, and respiratory rate 20. HEENT: Head: Normocephalic and atraumatic. Eyes: PERRLA. Extraocular muscles are intact. Conjunctivae are clear. Nose: Patent. Mucous membranes are moist. NECK: Supple. No carotid bruits, JVD, or thyromegaly. CHEST: Bilaterally symmetrical. HEART: S1 and S2 positive. LUNGS: Clear to auscultation. ABDOMEN: Soft, tender. Patient is letting me to touch the abdomen. EXTREMITIES: No edema. No cyanosis. NEUROLOGIC: Patient is awake and alert. Moving all four extremities. No focal deficits. MEDICATIONS: Dilaudid, Effexor, Flagyl, Flomax, folic acid, heparin, Lidoderm, Lopressor, Neurontin, Nicoderm, Remeron, Requip, Tegretol, and Zofran. LABORATORY DATA: White blood cell 7.9, hemoglobin 8.9, hematocrit 28.5, and platelets 331. Sodium 140, potassium 3.7, BUN 5, creatinine 0.5, and glucose 125. ASSESSMENT AND PLAN: Mr. Brandyn Wang is a 61-year-old male with anemia, hyperglycemia, went for surgery today. According to Surgery, who ordered deep venous thrombosis prophylaxis under labs on 04/11/2017, I agreed with that. Surgery was done by Dr. Toscano; gastric jejunal anastomosis with tension, but laparoscopic converted to open gastrojejunostomy; anastomotic tissue removed. Patient has a history of superior mesenteric artery syndrome, history of heavy smoking. Family Law Paralegal is on the case. Restless leg syndrome, history of cerebrovascular accident, chronic pain syndrome, opioid dependence, malnutritional, questionable visceral perforation. Urged to quit smoking, patient agrees. Now getting pain medications and getting Requip, status post surgery. Gastrointestinal and deep venous thrombosis prophylaxis. Repeat labs. We will follow up. Radha Lantigua MD
[2017-04-11] MEDS: HYDROmorphone 0.5 mg/0.5 ml ISec IVP PRN ×4 (03:13→20:10)
[2017-04-11] MEDS: metroNIDAZOLE IV 500 mg/100 ml 500 MG/100 ML BAG IVPB SCH (05:54)
[2017-04-11 07:12] LABS: HEMOGLOBIN 9.7 g/dL (14.0-18.0); MEAN CELL VOLUME 90.1 fl (80.0-105.0); MEAN CORPUSCULAR HEMOGLOBIN 28.3 pg (25.0-35.0); MEAN CORPUSCULAR HGB CONC 31.4 g/dl (31.0-37.0); MEAN PLATELET VOLUME 9.8 fl (7.0-11.0); RBC 3.43 10^6/uL (3.5-6.1); RED CELL DISTRIBUTION WIDTH 18.5 % (11.5-14.5); WHITE BLOOD COUNT 9.8 10^3/ul (4.5-11.0)
[2017-04-11] MEDS ORDERED: HYDROmorphone 0.2 mg/ml (25ml) 25 ML IV PRN (07:23)
[2017-04-11 08:04] LABS: ALB/GLOB RATIO 1.2 (1.1-1.8); ALBUMIN 3.2 g/dL (3.0-4.8); ALT/SGPT 15 U/L (7-56); AST/SGOT 29 U/L (17-59); BLOOD UREA NITROGEN 11 mg/dL (7-21); CALCIUM 9.2 mg/dL (8.4-10.5); GFR AFRICAN-AMERICAN > 60; GFR NON-AFRICAN AMERICAN > 60
--- NOTE | 2017-04-11 08:23 | CON ---
DATE: 04/10/2017 REASON FOR CONSULTATION: Preoperative evaluation and risk stratification for abdominal surgery and possible small bowel resection. OBJECTIVE: GENERAL: *------*, not in apparent distress. VITAL SIGNS: Temperature is afebrile, heart rate 79, blood pressure 112/63. HEENT: PERRLA. Extraocular muscles intact. NECK: Supple. No carotid bruit. No thyromegaly. CHEST: Clear to auscultation. HEART: S1 and S2 regular. ABDOMEN: Soft. EXTREMITIES: Clubbing and cyanosis negative. LABORATORY DATA: Blood work as follows: WBC *------*, hemoglobin 8.9, hematocrit 28.5, and platelet count 331. Chemistry shows sodium 140, potassium *------*, chloride 101, carbon dioxide 29, anion gap of 12, BUN 5, and creatinine 0.5. Total protein 5.6. IMPRESSION: A small perforation of the bowel, the patient is in the OR for today; history of cerebrovascular accident. The patient's echocardiography done yesterday revealed ejection fraction 55% to 60%, *------*, pericardial effusion. Though the patient has a moderate to high of underlying morbidity, but no absolute contraindication for surgery; no evidence for ischemia, no evidence for arrhythmia, no evidence for congestive heart failure. We will follow with you. Continue perioperative beta michelle. We will follow postop. Thank you Dr. Lantigua for providing me the opportunity in taking care of the patient, Brandyn Wang. Velvet Bey MD
--- NOTE | 2017-04-11 08:31 | CP.PCM.PN ---
Subjective - Date & Time of Evaluation Date of Evaluation: 04/11/17 Time of Evaluation: 06:55 - Subjective Subjective: General Surgery Progress Note for Dr. Toscnao Patient seen and examined at bedside. Patient reports generalized pain, inability to sleep last night, and feels his pain regiment is not adequate. He also request if his pain regiment could be altered. Patient denies nausea, vomiting, or fever. Objective - Vital Signs/Intake and Output Vital Signs (last 24 hours): Temp Pulse Resp BP Pulse Ox 98.5 F 80 20 130/85 96 04/11/17 06:00 04/11/17 06:00 04/11/17 06:00 04/11/17 06:00 04/11/17 06:00 Intake and Output: 04/11/17 04/11/17 06:59 18:59 Intake Total 0 Balance 0 - Medications Medications: Current Medications Carbamazepine (Tegretol) 100 mg PO BID HILARY PRN Reason: Protocol Last Admin: 04/10/17 18:21 Dose: Not Given Folic Acid (Folic Acid) 1 mg PO DAILY HILARY Last Admin: 04/10/17 16:25 Dose: Not Given Gabapentin (Neurontin) 300 mg PO TID HILARY PRN Reason: Protocol Last Admin: 04/10/17 18:25 Dose: 300 mg Heparin Sodium (Porcine) (Heparin) 5,000 units SC Q12 HILARY PRN Reason: Protocol Last Admin: 04/09/17 11:44 Dose: 5,000 units Hydromorphone HCl (Dilaudid) 0.5 mg IVP Q4H PRN PRN Reason: Pain, moderate (4-7) Last Admin: 04/11/17 06:43 Dose: 0.5 mg Metronidazole (Flagyl) 500 mg in 100 mls @ 100 mls/hr IVPB Q8 HILARY PRN Reason: Protocol Last Admin: 04/11/17 05:54 Dose: 100 mls/hr Lactated Ringer's (Lactated Ringer's) 1,000 mls @ 75 mls/hr IV .[id number] HILARY Hydromorphone HCl (Dilaudid 0.2 Mg/Ml Evp [place]) 25 mls @ 0 mls/hr IV PRN PRN; Protocol PRN Reason: CSR TECHNICIAN PER MD ORDER Ketorolac Tromethamine (Toradol) 30 mg IVP Q8H HILARY Lidocaine (Lidoderm) 1 ea TD 2200 [facility] Last Admin: 04/09/17 22:34 Dose: Not Given Metoprolol Tartrate (Lopressor) 12.5 mg PO BID [facility] Last Admin: 04/10/17 18:26 Dose: 12.5 mg Mirtazapine (Remeron) 15 mg PO HS [facility] Last Admin: 04/10/17 23:22 Dose: 15 mg Nicotine (Nicoderm Cq) 1 patch TD DAILY [facility] Last Admin: 04/10/17 18:21 Dose: Not Given Ondansetron HCl (Zofran Inj) 4 mg IVP Q6H PRN PRN Reason: Nausea/Vomiting Last Admin: 04/09/17 11:44 Dose: 4 mg Ropinirole HCl (Requip) 1 mg PO AMHS [facility] Last Admin: 04/10/17 23:22 Dose: 1 mg Tamsulosin HCl (Flomax) 0.4 mg PO DAILY [facility] Last Admin: 04/10/17 16:25 Dose: Not Given Venlafaxine HCl (Effexor) 37.5 mg PO DAILY [facility] Last Admin: 04/10/17 16:25 Dose: Not Given - Labs Labs: 04/11/17 06:30 04/11/17 06:30 PT 12.5 SECONDS (9.4-12.5) 04/09/17 15:35 INR 1.09 (0.93-1.08) H 04/09/17 15:35 APTT 32.7 Seconds (25.1-36.5) 04/09/17 15:35 - Constitutional Appears: Non-toxic, No Acute Distress - Head Exam Head Exam: ATRAUMATIC, NORMOCEPHALIC - Eye Exam Eye Exam: EOMI, Normal appearance - Neck Exam Neck Exam: Normal Inspection - Respiratory Exam Respiratory Exam: NORMAL BREATHING PATTERN. absent: Accessory Muscle Use - Cardiovascular Exam Additional comments: surgical dressing are intact and incision is without erythema or associated swelling - GI/Abdominal Exam GI & Abdominal Exam: Soft, Tenderness (diffusely). absent: Guarding, Rebound - Extremities Exam Extremities Exam: Normal Inspection. absent: Calf Tenderness - Neurological Exam Neurological Exam: Alert, Awake - Psychiatric Exam Psychiatric exam: Normal Affect, Normal Mood - Skin Skin Exam: Dry, Intact, Normal Color, Warm Assessment and Plan - Assessment and Plan (Free Text) Assessment: 61 year old with SMA syndrome and a partial SBO who is post-operative day 1 for open gastrojejunostomy. Plan: Antibiotics discontinued Analgesic regiment: Dilaudid 0.5 mg q4h PRN, Toradol 30 mg q6h HILARY, DUMP MOTOR OPERATOR hydromorphone, lidoderm patch applied to abdominal scar Physical Therapy ordered for post-operative open abdominal surgery Track Service Worker consult ordered Heparin 5,000 q12h HILARY Continue medical management Case discussed with attending physician, Dr. Toscano.
[2017-04-11] MEDS: Lidocaine 5% Patch TD SCH ×3 (09:25→22:20)
--- NOTE | 2017-04-11 15:05 | PN ---
DATE: REASON FOR CONSULTATION: Preoperative evaluation; risk stratification for abdominal surgery, status post abdominal surgery; small bowel obstruction.04/11/2017 SUBJECTIVE: Patient complaining of pain at the operative site. Otherwise, no chest pain, no shortness of breath. OBJECTIVE GENERAL: Not in apparent distress, lying flat in the bed. VITAL SIGNS: Temperature afebrile, heart rate 80, blood pressure 130/85. HEENT: PERRLA. Extraocular muscles intact. NECK: Supple. No carotid bruits or thyromegaly. CHEST: Clear to auscultation. HEART: S1 and S2 regular. ABDOMEN: Soft. EXTREMITIES: Clubbing and cyanosis negative. LABORATORY DATA: Blood workup as follows; WBC 9.8, hemoglobin , hematocrit 30.9, platelet count 385,000. Chemistry shows sodium 139, potassium 3.9, chloride 100, carbon dioxide 28, anion gap of 15, BUN 11, creatinine 0.6. IMPRESSION: Perforation of small bowel and small bowel obstruction, status post , status post duodenojejunostomy, status post postoperative day 1, still n.p.o., status post open gastrojejunostomy, history of cerebrovascular accident in the past. Preoperative echo showed ejection fraction of 60%, trace pericardial effusion. RECOMMENDATIONS: We will continue IV fluid. Continue adequate analgesia. We will follow with you. CVS status is stable. Monitor electrolytes and replace as needed. We will follow with you. Thank you Dr. Lantigua for providing us the opportunity in taking care of the patient, Brandyn Wang. Velvet Bey MD
[2017-04-11] MEDS ORDERED: Lactated Ringer's 1,000 ML IV SCH (16:30)
--- NOTE | 2017-04-11 22:05 | OP ---
PROCEDURE DATE: PREOPERATIVE DIAGNOSIS: Gastric duodenal obstruction secondary to superior mesenteric artery syndrome. POSTOPERATIVE DIAGNOSIS: Gastric duodenal obstruction secondary to superior mesenteric artery syndrome. OPERATION PERFORMED: Laparoscopy followed by an open gastroenterostomy. SURGEON: Rashawn Toscano MD. BOBBIN STRIPPER: Dr. Galvin. ESTIMATED BLOOD LOSS: Minimal. DESCRIPTION OF PROCEDURE: In the operating room, the patient was identified by name, name of procedure, laterality, my carolann. In the operating room, the patient having been prepped and draped with the Chang after the successful time-out and perioperative antibiotics, the abdomen was entered with a Veress needle followed by the Visiport and the operative scope. We were able to see the abdomen very well. In the pelvis, there was nothing remarkable. There was no evidence of free air, abscess or inflammation that I could see. The liver was normal, gallbladder was normal, stomach was relatively normal with a dilated duodenal bulb. Colon was somewhat dilated. The blood vessels were remarkably huge. The gastroepiploic was 3-4 mm. The operation was converted to open. The stomach was brought down and lined up with the proximal small bowel, which was tagged. The abdomen was then explored. There was nothing else untoward. The pelvis was unremarkable. There were no masses easily palpable. Bladder with a Chang. Colon and small bowels were otherwise unremarkable except the vasculature. The vasculature of the inferior and superior mesenteric veins were huge. The vessels in the gastroepiploic and high up by the esophageal junction were palpable and huge, visibly pulsing. The stomach was otherwise unremarkable. The small bowel was lined up in an antecolic isoperistaltic manner. It was the inferior border of the stomach left to the midline. It was lined up with silks. SUE was run in and fired after the small bowel was run again to ascertain the orientation and the appropriateness. SUE was run in and fired. The defect was closed with and a TA-60. The colon was then put in a normal orientation. The abdomen was irrigated and dried. There was nothing untoward, although there was a little bit of bleeding in the small bowel by one of the stitches. The was observed and it was unremarkable. Sutures were placed and the gastroenterostomy was imbricated with silk as there was some bleeding. There was nothing else untoward. The incision was closed with running #1 PDS above and below and tied in the middle. Subcutaneous tissue with Vicryl and antionette. An On-Q was placed. The patient was taken to the recovery room in good condition after the sponge and needle counts were counted correct. Abdominal binder placed. Rashawn Toscano MD
--- NOTE | 2017-04-12 01:12 | PN ---
DATE: 04/11/2017 PULMONARY PROGRESS NOTE REFERRING PHYSICIAN: Dr. Lantigua. SUBJECTIVE: He is lying in the bed, head at 45 degrees, has abdominal pain, n.p.o. No cough, no sputum production. Does have some nausea. No leg pain. No leg swelling. OBJECTIVE: GENERAL: In no acute distress. VITAL SIGNS: Temperature is 98.9, heart rate 78, respiratory rate is 20, blood pressure 137/92, pulse ox 96% on room air. HEENT: Dry mucous membrane. NECK: Supple. No JVD. LUNGS: Fair airflow with rhonchi. HEART: S1 and S2. ABDOMEN: Soft, tenderness. EXTREMITIES: There is no edema. NEUROLOGICAL: Awake, alert. Follows simple command. MEDICATIONS: He is on Dilaudid 0.5 mg q. 4 hours p.r.n., also on FOOD HANDLER pump, Effexor 37.5 mg daily, Flomax 0.4 mg daily, folic acid 1 mg daily, heparin 5000 units subcutaneous q. 8 hour, lactated Ringer is 75 mL/hour, Lidoderm patch in the affected area, metoprolol tartarate 12.5 mg twice a day, Neurontin 300 mg 3 times a day, Nicoderm patch daily, Protonix 40 mg daily, Remeron 15 mg at bedtime, ReQuip 1 mg a.m. and at bedtime, Tegretol 100 mg twice a day, Toradol 20 mg q. 6 hours, Zofran p.r.n. basis. LABORATORY DATA: Shows hemoglobin 9.7, hematocrit 30.9, WBC 9.8, platelet is 385. Sodium 139, potassium 3.9, chloride 100, bicarbonate 28, BUN 11, creatinine 0.6, glucose 94, calcium is 9.2. AST 29, ALT 15, alkaline phosphatase is 80, albumin is 3.2. IMPRESSION AND PLAN: He has a history of partial small bowel obstruction with superior mesenteric artery syndrome, status post gastrojejunostomy, chronic lung disease, questionable restless leg syndrome, malnutrition, chronic pain syndrome. Pulmonary point of view, he is doing well. Keep head at 45 degrees. Continue pain management. Gastric and deep venous thrombosis prophylaxis. Surgical followup. Thank you and we will follow with you. Velvet Castillo MD [facility] # [id number]
[2017-04-12] MEDS: HYDROmorphone 0.5 mg/0.5 ml ISec IVP PRN ×5 (04:04→23:50)
[2017-04-12] MEDS: Dextrose 5%/0.45% NS 1,000 ML IV SCH ×2 (07:04→17:48)
[2017-04-12 07:41] LABS: GRAN # 5.07 (1.4-6.5); GRAN % 74.4 % (50.0-68.0); HEMOGLOBIN 10.1 g/dL (14.0-18.0); LYMPH # 1.1 (1.2-3.4); LYMPH % 16.1 % (22.0-35.0); MEAN CELL VOLUME 89.7 fl (80.0-105.0); MEAN CORPUSCULAR HEMOGLOBIN 28.1 pg (25.0-35.0); MEAN CORPUSCULAR HGB CONC 31.3 g/dl (31.0-37.0); MEAN PLATELET VOLUME 9.8 fl (7.0-11.0); MONO # 0.7 (0.1-0.6); MONO % 9.5 % (1.0-6.0); RBC 3.6 10^6/uL (3.5-6.1); RED CELL DISTRIBUTION WIDTH 18.5 % (11.5-14.5); WHITE BLOOD COUNT 6.8 10^3/ul (4.5-11.0)
[2017-04-12 08:01] LABS: ALB/GLOB RATIO 1.2 (1.1-1.8); ALBUMIN 3.4 g/dL (3.0-4.8); ALT/SGPT 16 U/L (7-56); AST/SGOT 22 U/L (17-59); BLOOD UREA NITROGEN 26 mg/dL (7-21); CALCIUM 9.5 mg/dL (8.4-10.5); GFR AFRICAN-AMERICAN > 60; GFR NON-AFRICAN AMERICAN > 60; MAGNESIUM 2.2 mg/dL (1.7-2.2)
--- NOTE | 2017-04-12 09:15 | PN ---
DATE: 04/11/2017 SUBJECTIVE: The patient is a 61-year-old male. The patient seen and examined at the bedside. Looking comfortable. Complaining about abdominal pain. According to him, he could not sleep last night due to pain. No passage of gas, but no nausea, vomiting, diarrhea. No hematuria or hematochezia. No fever. No chills. PHYSICAL EXAMINATION: VITAL SIGNS: Temperature 98.5, pulse 80, respiratory rate 20, blood pressure 130/85, pulse oximetry 96. HEENT: Head normocephalic, atraumatic. Eyes PERRLA. Extraocular muscles intact. Conjunctivae clear. Nose patent. Mucous membrane moist. NECK: Supple. No carotid bruit. No JVD or thyromegaly. CHEST: Bilaterally symmetrical. ABDOMEN: Soft. Bowel sounds positive. No organomegaly. EXTREMITIES: No edema. No cyanosis. NEUROLOGICAL: The patient is awake, alert. Moving all four extremities. No focal deficit. LABORATORY DATA: White blood cells 9.8, hemoglobin 9.7, hematocrit 30.9, platelets 389. Sodium 139, potassium 3.9, BUN 11, creatinine 0.6, glucose 96. MEDICATIONS: Tegretol, folic acid, Neurontin, heparin, Dilaudid, Flagyl, Ringer's lactate, Toradol, Lopressor, Remeron, Nicoderm, Zofran, Requip, Flomax, Effexor. ASSESSMENT AND PLAN: Mr. Brandyn Wang, 61-year-old male with anemia with superior mesenteric artery syndrome and partial small bowel obstruction, who is postoperative day one for open gastrojejunostomy. Antibiotics discontinued. The patient is getting Dilaudid every four hours p.r.n. Toradol is every six hours, Lidoderm patch apply to the abdominal scar. Physical therapy, out of bed. Dietitian consult ordered by the surgeon. The patient is getting heparin. Continue medical treatment. Discussion done with the patient. Reviewed Dr. Bey's notes. The patient has history of stroke, restless legs syndrome, chronic pain syndrome, opioid dependency. For him, we have to be careful giving the pain medication. History of questionable visceral perforation. Repeat labs. We will follow. Radha Lantigua MD [facility] # [id number] [place]
[2017-04-12] MEDS ORDERED: 0.125% Bupivacaine in 0.9% NS 750mL On Q Dual pump IJ ONE (09:39)
--- NOTE | 2017-04-12 10:39 | CP.PCM.PN ---
Subjective - Date & Time of Evaluation Date of Evaluation: 04/12/17 Time of Evaluation: 10:35 - Subjective Subjective: Surgery: Dr. Toscano Patient pain better controlled. Having nausea, hiccups, and reflux. Patient believes it is associated with pain medication. Objective - Vital Signs/Intake and Output Vital Signs (last 24 hours): Temp Pulse Resp BP Pulse Ox 99.4 F 88 18 142/93 H 93 L 04/12/17 07:00 04/12/17 07:00 04/12/17 07:00 04/12/17 07:00 04/12/17 07:00 Intake and Output: 04/12/17 04/12/17 06:59 18:59 Intake Total 900 Output Total 525 Balance 375 - Medications Medications: Current Medications Carbamazepine (Tegretol) 100 mg PO BID [facility] PRN Reason: Protocol Last Admin: 04/11/17 17:12 Dose: 100 mg Folic Acid (Folic Acid) 1 mg PO DAILY [facility] Last Admin: 04/11/17 09:30 Dose: 1 mg Gabapentin (Neurontin) 300 mg PO TID [facility] PRN Reason: Protocol Last Admin: 04/11/17 17:08 Dose: 300 mg Heparin Sodium (Porcine) (Heparin) 5,000 units SC Q8 [facility] PRN Reason: Protocol Last Admin: 04/12/17 08:40 Dose: 5,000 units Hydromorphone HCl (Dilaudid) 0.5 mg IVP Q4H PRN PRN Reason: Pain, moderate (4-7) Last Admin: 04/12/17 08:41 Dose: 0.5 mg Dextrose/Sodium Chloride (Dextrose 5%/0.45% Ns 1000 Ml) 1,000 mls @ 85 mls/hr IV .[id number] [facility] Last Admin: 04/12/17 07:04 Dose: 85 mls/hr Ketorolac Tromethamine (Toradol) 30 mg IVP Q6 [facility] Stop: 04/13/17 06:01 Last Admin: 04/12/17 06:03 Dose: 30 mg Lidocaine (Lidoderm) 1 ea TD 2200 [facility] Last Admin: 04/11/17 22:20 Dose: Not Given Metoprolol Tartrate (Lopressor) 12.5 mg PO BID [facility] Last Admin: 04/11/17 17:05 Dose: 12.5 mg Mirtazapine (Remeron) 15 mg PO HS [facility] Last Admin: 04/11/17 21:25 Dose: 15 mg Nicotine (Nicoderm Cq) 1 patch TD DAILY [facility] Last Admin: 04/11/17 09:34 Dose: 1 patch Ondansetron HCl (Zofran Inj) 4 mg IVP Q6H PRN PRN Reason: Nausea/Vomiting Last Admin: 04/12/17 01:40 Dose: 4 mg Pantoprazole Sodium (Protonix Inj) 40 mg IVP DAILY [facility] Last Admin: 04/11/17 15:10 Dose: 40 mg Ropinirole HCl (Requip) 1 mg PO AMHS [facility] Last Admin: 04/11/17 21:25 Dose: 1 mg Tamsulosin HCl (Flomax) 0.4 mg PO DAILY [facility] Last Admin: 04/11/17 09:30 Dose: 0.4 mg Venlafaxine HCl (Effexor) 37.5 mg PO DAILY [facility] Last Admin: 04/11/17 10:51 Dose: 37.5 mg - Labs Labs: 04/12/17 07:20 04/12/17 07:20 PT 12.5 SECONDS (9.4-12.5) 04/09/17 15:35 INR 1.09 (0.93-1.08) H 04/09/17 15:35 APTT 32.7 Seconds (25.1-36.5) 04/09/17 15:35 - Constitutional Appears: Cachectic - Head Exam Head Exam: ATRAUMATIC, NORMOCEPHALIC - Eye Exam Eye Exam: EOMI, Normal appearance - ENT Exam ENT Exam: Mucous Membranes Moist - Respiratory Exam Respiratory Exam: NORMAL BREATHING PATTERN. absent: Respiratory Distress - Cardiovascular Exam Cardiovascular Exam: REGULAR RHYTHM. absent: Tachycardia - GI/Abdominal Exam GI & Abdominal Exam: Soft, Tenderness (michele-incisional, incision CDI ). absent : Distended, Guarding, Rebound - Neurological Exam Neurological Exam: Alert, Awake, Oriented x3 - Psychiatric Exam Psychiatric exam: Normal Affect, Normal Mood - Skin Skin Exam: Dry, Intact, Warm. absent: Normal Color Assessment and Plan - Assessment and Plan (Free Text) Assessment: 61 y/o male s/p open gastrojejunostomy POD2 Plan: -refill On-Q -cont sips and ice only until bowel function returns -may consider IV nutrition, awaiting nutrition recommendations -deescalate pain meds -trial of po pain medication -OOB -IS use -f/u bowel function -DVt ppx -GI ppx -further recs per Dr. Everton Art PGY3
[2017-04-12] MEDS ORDERED: Bupivacaine 0.25% Inj(30mL) ONE (11:46)
[2017-04-12] MEDS ORDERED: Oxycodone/Acetaminophen 5/325 mg Tab PO PRN (12:33)
--- NOTE | 2017-04-12 14:01 | CP.PCM.PN ---
<Claudia Mccallum - Last Filed: 04/12/17 13:57> Subjective - Date & Time of Evaluation Date of Evaluation: 04/12/17 Time of Evaluation: 10:30 - Subjective Subjective: Chief complaint: Hiccups, N/V 61 yr male w/ hstory of CVA L side deficits, multiple lou, restless leg syndrome, chronic back pain, & L knee surgery. Pt admitted to [facility] [place] for generalized abdominal pain. Pt was taking percocet at home for chronic back pain and began to feel abdominal pain relieved by self-induced emesis. on 04/10 pt was in OR for laprascopic endoscopy, pt diagnosed w super mesenteric artery syndrome. Today, pt states he has 8/10 pain in abdomen, n/v and constant hiccups. Denies any fever, chills, chest pain, shortness of breath, diarrhea, constipation, or urinary problems. Objective - Vital Signs/Intake and Output Vital Signs (last 24 hours): Temp Pulse Resp BP Pulse Ox 99.4 F 88 18 142/93 H 93 L 04/12/17 07:00 04/12/17 07:00 04/12/17 07:00 04/12/17 07:00 04/12/17 07:00 Intake and Output: 04/12/17 04/12/17 06:59 18:59 Intake Total 900 Output Total 525 Balance 375 - Medications Medications: Current Medications Carbamazepine (Tegretol) 100 mg PO BID [facility] PRN Reason: Protocol Last Admin: 04/12/17 12:32 Dose: 100 mg Folic Acid (Folic Acid) 1 mg PO DAILY [facility] Last Admin: 04/12/17 12:33 Dose: 1 mg Gabapentin (Neurontin) 300 mg PO TID [facility] PRN Reason: Protocol Last Admin: 04/12/17 12:33 Dose: 300 mg Heparin Sodium (Porcine) (Heparin) 5,000 units SC Q8 [facility] PRN Reason: Protocol Last Admin: 04/12/17 08:40 Dose: 5,000 units Dextrose/Sodium Chloride (Dextrose 5%/0.45% Ns 1000 Ml) 1,000 mls @ 85 mls/hr IV .[id number] [facility] Last Admin: 04/12/17 07:04 Dose: 85 mls/hr Ketorolac Tromethamine (Toradol) 30 mg IVP Q6 [facility] Stop: 04/13/17 06:01 Last Admin: 04/12/17 12:44 Dose: 30 mg Lidocaine (Lidoderm) 1 ea TD 2200 [facility] Last Admin: 04/11/17 22:20 Dose: Not Given Metoprolol Tartrate (Lopressor) 12.5 mg PO BID [facility] Last Admin: 04/12/17 12:33 Dose: 12.5 mg Mirtazapine (Remeron) 15 mg PO HS [facility] Last Admin: 04/11/17 21:25 Dose: 15 mg Nicotine (Nicoderm Cq) 1 patch TD DAILY [facility] Last Admin: 04/12/17 12:34 Dose: 1 patch Ondansetron HCl (Zofran Inj) 4 mg IVP Q6H PRN PRN Reason: Nausea/Vomiting Last Admin: 04/12/17 01:40 Dose: 4 mg Oxycodone/Acetaminophen (Percocet 10/325 Mg Tab) 1 tab PO Q4H PRN PRN Reason: Pain, moderate (4-7) Oxycodone/Acetaminophen (Percocet 5/325 Mg Tab) 1 tab PO Q4H PRN PRN Reason: Pain, Mild (1-3) Stop: 04/15/17 12:34 Pantoprazole Sodium (Protonix Inj) 40 mg IVP DAILY [facility] Last Admin: 04/12/17 12:34 Dose: 40 mg Ropinirole HCl (Requip) 1 mg PO AMHS [facility] Last Admin: 04/12/17 12:35 Dose: 1 mg Tamsulosin HCl (Flomax) 0.4 mg PO DAILY [facility] Last Admin: 04/12/17 12:31 Dose: 0.4 mg Venlafaxine HCl (Effexor) 37.5 mg PO DAILY [facility] Last Admin: 04/12/17 12:33 Dose: 37.5 mg - Labs Labs: 04/12/17 07:20 04/12/17 07:20 PT 12.5 SECONDS (9.4-12.5) 04/09/17 15:35 INR 1.09 (0.93-1.08) H 04/09/17 15:35 APTT 32.7 Seconds (25.1-36.5) 04/09/17 15:35 - Constitutional Appears: Older Than Stated Age, Chronically Ill - Head Exam Head Exam: ATRAUMATIC, NORMAL INSPECTION, NORMOCEPHALIC - Eye Exam Eye Exam: EOMI, Normal appearance, PERRL Pupil Exam: NORMAL ACCOMODATION, PERRL - ENT Exam ENT Exam: Mucous Membranes Moist, Normal Exam - Neck Exam Neck Exam: Full ROM, Normal Inspection. absent: Lymphadenopathy - Respiratory Exam Respiratory Exam: Clear to Ausculation Bilateral, NORMAL BREATHING PATTERN - Cardiovascular Exam Cardiovascular Exam: REGULAR RHYTHM, +S1, +S2. absent: Murmur - GI/Abdominal Exam GI & Abdominal Exam: Soft, Diminished Bowel Sounds Additional comments: (+) hiccups, abdomen concave. - Exam Additional comments: segal catheter, clear yellow urine - Extremities Exam Additional comments: L arm contracture / L lower extremity weakness. - Neurological Exam Neurological Exam: Alert, Awake - Psychiatric Exam Psychiatric exam: Depressed, Flat Affect - Skin Skin Exam: Dry, Pallor Assessment and Plan (1) Hiccups Status: Acute (2) SMAS (superior mesenteric artery syndrome) Status: Acute (3) Dehydration Status: Acute (4) Chronic back pain Status: Acute (5) Anemia Status: Acute (6) Abdominal pain Status: Acute (7) Failure to thrive in adult Status: Acute (8) Partial small bowel obstruction Status: Ruled-out - Assessment and Plan (Free Text) Plan: Treatment for intractable hiccups per GI. Continue NPO per GI. Seizure precautions. VTE/GI prophlyaxis. Nicotine patch ordered. PT/OT on board. Diagnosis: SMA (ruled out opioid induced constipation & SBO). Pain management: gabapentin, toradol IVP, lidocaine, percocet 1 tab q 4h Consults: GI - Dr. Ozuna Surgery - Dr. Toscano Neuro - Dr. Culp Pulelva - Dr. Diaz Cardio - Dr. Bey Psych - Dr. Conn Reviewed: CT abd/pelvis = contrast seen throughout small bowel & colon, no evidence of obstruction, small amount of extra luminar air in the pelvis which is no longer seen Xray SB = NEGATIVE obstruction ECHO = EF 55-60%, ECG = Sinus tachy, w/ PAC CT angio = small droplets of free air in the anterior pelvis, suspicious for bowel perforation, small infrarenal abd aortic aneurysm, no evidence of SMA, occlusion, stenosis CT abd/pelvis = WNL <Radha Lantigua - Last Filed: 04/12/17 15:42> Objective - Vital Signs/Intake and Output Vital Signs (last 24 hours): Temp Pulse Resp BP Pulse Ox 99.4 F 88 18 142/93 H 93 L 04/12/17 07:00 04/12/17 07:00 04/12/17 07:00 04/12/17 07:00 04/12/17 07:00 Intake and Output: 04/12/17 04/12/17 06:59 18:59 Intake Total 900 Output Total 525 400 Balance 375 -400 - Medications Medications: Current Medications Carbamazepine (Tegretol) 100 mg PO BID [facility] PRN Reason: Protocol Last Admin: 04/12/17 12:32 Dose: 100 mg Folic Acid (Folic Acid) 1 mg PO DAILY [facility] Last Admin: 04/12/17 12:33 Dose: 1 mg Gabapentin (Neurontin) 300 mg PO TID [facility] PRN Reason: Protocol Last Admin: 04/12/17 12:33 Dose: 300 mg Heparin Sodium (Porcine) (Heparin) 5,000 units SC Q8 [facility] PRN Reason: Protocol Last Admin: 04/12/17 08:40 Dose: 5,000 units Hydromorphone HCl (Dilaudid) 1 mg IVP Q4H PRN PRN Reason: Pain, severe (8-10) Last Admin: 04/12/17 15:19 Dose: 1 mg Dextrose/Sodium Chloride (Dextrose 5%/0.45% Ns 1000 Ml) 1,000 mls @ 85 mls/hr IV .[id number] [facility] Last Admin: 04/12/17 07:04 Dose: 85 mls/hr Ketorolac Tromethamine (Toradol) 30 mg IVP Q6 [facility] Stop: 04/13/17 06:01 Last Admin: 04/12/17 12:44 Dose: 30 mg Lidocaine (Lidoderm) 1 ea TD 2200 [facility] Last Admin: 04/11/17 22:20 Dose: Not Given Metoprolol Tartrate (Lopressor) 12.5 mg PO BID [facility] Last Admin: 04/12/17 12:33 Dose: 12.5 mg Mirtazapine (Remeron) 15 mg PO HS [facility] Last Admin: 04/11/17 21:25 Dose: 15 mg Nicotine (Nicoderm Cq) 1 patch TD DAILY [facility] Last Admin: 04/12/17 12:34 Dose: 1 patch Ondansetron HCl (Zofran Inj) 4 mg IVP Q6H PRN PRN Reason: Nausea/Vomiting Last Admin: 04/12/17 01:40 Dose: 4 mg Oxycodone/Acetaminophen (Percocet 10/325 Mg Tab) 1 tab PO Q4H PRN PRN Reason: Pain, moderate (4-7) Pantoprazole Sodium (Protonix Inj) 40 mg IVP DAILY [facility] Last Admin: 04/12/17 12:34 Dose: 40 mg Ropinirole HCl (Requip) 1 mg PO AMHS [facility] Last Admin: 04/12/17 12:35 Dose: 1 mg Tamsulosin HCl (Flomax) 0.4 mg PO DAILY [facility] Last Admin: 04/12/17 12:31 Dose: 0.4 mg Venlafaxine HCl (Effexor) 37.5 mg PO DAILY [facility] Last Admin: 04/12/17 12:33 Dose: 37.5 mg - Labs Labs: 04/12/17 07:20 04/12/17 07:20 PT 12.5 SECONDS (9.4-12.5) 04/09/17 15:35 INR 1.09 (0.93-1.08) H 04/09/17 15:35 APTT 32.7 Seconds (25.1-36.5) 04/09/17 15:35 Assessment and Plan - Assessment and Plan (Free Text) Plan: 61 yr male w/ hstory of CVA L side deficits, multiple lou, restless leg syndrome, chronic back pain, & L knee surgery. Pt admitted to [facility] [place] for generalized abdominal pain. Pt was taking percocet at home for chronic back pain and began to feel abdominal pain relieved by self-induced emesis. on 04/10 pt was in OR for laprascopic endoscopy, pt diagnosed w super mesenteric artery syndrome. Today, pt states he has 8/10 pain in abdomen, n/v and constant hiccups. Denies any fever, chills, chest pain, shortness of breath, diarrhea, constipation, or urinary problems. . pt is seen and examined at bed side , at bed side , looking comfortable , agreed all above , chart , labs and meds noted , will f/u
[2017-04-12] MEDS ORDERED: HYDROmorphone 1 mg/ml ISec IVP PRN (14:45)
--- NOTE | 2017-04-12 14:46 | PN ---
DATE: 04/12/2017 PULMONARY PROGRESS NOTE REFERRING PHYSICIAN: Radha Lantigua MD. SUBJECTIVE: He is lying in the bed, has persistent headache. N.p.o. Taking ice chips. Nausea. No vomiting. No chest pain. No shortness of breath. Has abdominal pain. Passing gas, but no bowel movement. No leg pain. No leg swelling. OBJECTIVE: GENERAL: In no acute distress. VITAL SIGNS: Temp is 99, heart rate is 88, respiratory rate is 18, blood pressure 142/93, pulse ox 96% on room air. HEENT: Small oral cavity. NECK: Supple. No JVD. LUNGS: Have fair airflow with rhonchi. HEART: S1 and S2. ABDOMEN: Positive bowel sounds. Diffusely mildly tenderness. EXTREMITIES: There is no edema. NEUROLOGICAL: Awake and alert. Follows simple command. LABORATORY DATA: Shows hemoglobin 10.1, hematocrit 32.3, WBC 6.8, platelet is 435. Sodium 140, potassium 3.7, chloride 99, bicarbonate is 27, BUN 26, creatinine 0.6, glucose is 113, calcium is 9.5, phosphorus 3.5, magnesium is 2.2, AST 22, ALT 16, alk phos is 79, albumin is 3.4 MEDICATIONS: He is on dextrose with half normal 85 mL/hour, Dilaudid 0.5 mg q. 4 hours p.r.n., Effexor is 37.5 daily, Flomax 0.4 mg daily, folic acid 1 mg daily, heparin 5000 units subcu q. 8 hours, lidocaine patch daily, metoprolol tartrate 12.5 mg twice a day, gabapentin 300 mg 3 times a day, Nicoderm patch daily, Protonix 40 mg daily, Remeron 50 mg at bedtime, ReQuip 1 mg at bedtime, Tegretol 100 mg two times a day, Toradol 30 mg q. 6 hours, Zofran p.r.n. basis. IMPRESSION AND PLAN: Partial small bowel obstruction, had superior mesenteric artery syndrome, status post gastrojejunostomy, chronic lung disease, questionable restless legs syndrome, malnutrition, chronic pain syndrome, has a persistent hiccup. Keep head elevated at 45 degrees. May use supplement oxygen if pulse ox less than 90%. Pain management. Gastric and deep venous thrombosis prophylaxis. Thank you and we will follow with you. Velvet Castillo MD [facility] # [id number]
--- NOTE | 2017-04-12 15:06 | PN ---
DATE: 04/12/2017 REASON FOR CONSULTATION: Preoperative evaluation, risk stratification for abdominal surgery, status post small bowel obstruction, status post gastrojejunostomy. SUBJECTIVE: Patient denies any chest pain, but complains of pain in the operative site. OBJECTIVE: GENERAL: Mild abdominal pain in the operative site. VITAL SIGNS: Temperature afebrile, heart rate 88, and blood pressure 142/93. HEENT: PERRLA. Extraocular muscles are intact. NECK: Supple. No carotid bruit or thyromegaly. CHEST: Clear to auscultation. HEART: S1 and S2 regular. ABDOMEN: Soft. EXTREMITIES: Clubbing and cyanosis negative. LABORATORY DATA: Blood workup as follows; WBC 6.8, hemoglobin 10.8, hematocrit 32.3, and platelet count 435. Chemistry shows sodium 140, potassium 3.7, chloride 99, carbon dioxide 27, anion gap of 17. BUN 26 and creatinine 0.6. IMPRESSION: Status post perforation of bowel, status post small bowel obstruction, status post abdominal surgery, status post gastrojejunostomy, history of cerebrovascular accident. Continue IV fluids, adequate analgesia. Continue antibiotic. Further recommendation as per Surgery. CVS status is stable. The patient had echocardiography preoperatively that shows ejection fraction of 60%, trace pericardial effusion. We will follow with you. Thank you, Dr. Lantigua, for providing us the opportunity in taking care of Brandyn Wang. Velvet Bey MD
[2017-04-12] MEDS: Lidocaine 5% Patch TD SCH (23:46)
[2017-04-13] MEDS: HYDROmorphone 0.5 mg/0.5 ml ISec IVP PRN ×5 (03:57→21:32)
--- NOTE | 2017-04-13 08:21 | CP.PCM.PN ---
Subjective - Date & Time of Evaluation Date of Evaluation: 04/13/17 Time of Evaluation: 08:18 - Subjective Subjective: Surgery: Dr. Toscano Patient pain better this am. Denies n/v overnight. Denies being OOB. + flatus, no BM. Objective - Vital Signs/Intake and Output Vital Signs (last 24 hours): Temp Pulse Resp BP Pulse Ox 98.4 F 82 18 140/88 96 04/12/17 16:14 04/12/17 16:14 04/12/17 16:14 04/12/17 16:14 04/12/17 16:14 Intake and Output: 04/13/17 04/13/17 06:59 18:59 Intake Total 0 Output Total 125 Balance -125 - Medications Medications: Current Medications Carbamazepine (Tegretol) 100 mg PO BID [facility] PRN Reason: Protocol Last Admin: 04/12/17 17:50 Dose: 100 mg Folic Acid (Folic Acid) 1 mg PO DAILY [facility] Last Admin: 04/12/17 12:33 Dose: 1 mg Gabapentin (Neurontin) 300 mg PO TID [facility] PRN Reason: Protocol Last Admin: 04/12/17 17:51 Dose: 300 mg Heparin Sodium (Porcine) (Heparin) 5,000 units SC Q8 [facility] PRN Reason: Protocol Last Admin: 04/13/17 06:08 Dose: 5,000 units Hydromorphone HCl (Dilaudid) 0.5 mg IVP Q4H PRN PRN Reason: Pain, severe (8-10) Dextrose/Sodium Chloride (Dextrose 5%/0.45% Ns 1000 Ml) 1,000 mls @ 85 mls/hr IV .[id number] [facility] Last Admin: 04/12/17 17:48 Dose: 85 mls/hr Lidocaine (Lidoderm) 1 ea TD 2200 [facility] Last Admin: 04/12/17 23:46 Dose: Not Given Metoprolol Tartrate (Lopressor) 12.5 mg PO BID [facility] Last Admin: 04/12/17 17:50 Dose: 12.5 mg Mirtazapine (Remeron) 15 mg PO HS [facility] Last Admin: 04/12/17 23:19 Dose: 15 mg Nicotine (Nicoderm Cq) 1 patch TD DAILY [facility] Last Admin: 04/12/17 12:34 Dose: 1 patch Ondansetron HCl (Zofran Inj) 4 mg IVP Q6H PRN PRN Reason: Nausea/Vomiting Last Admin: 04/12/17 23:51 Dose: 4 mg Oxycodone/Acetaminophen (Percocet 10/325 Mg Tab) 1 tab PO Q4H PRN PRN Reason: Pain, moderate (4-7) Pantoprazole Sodium (Protonix Inj) 40 mg IVP DAILY [facility] Last Admin: 04/12/17 12:34 Dose: 40 mg Ropinirole HCl (Requip) 1 mg PO AMHS [facility] Last Admin: 04/12/17 23:19 Dose: 1 mg Tamsulosin HCl (Flomax) 0.4 mg PO DAILY [facility] Last Admin: 04/12/17 12:31 Dose: 0.4 mg Venlafaxine HCl (Effexor) 37.5 mg PO DAILY [facility] Last Admin: 04/12/17 12:33 Dose: 37.5 mg - Labs Labs: 04/12/17 07:20 04/12/17 07:20 PT 12.5 SECONDS (9.4-12.5) 04/09/17 15:35 INR 1.09 (0.93-1.08) H 04/09/17 15:35 APTT 32.7 Seconds (25.1-36.5) 04/09/17 15:35 - Constitutional Appears: Non-toxic, No Acute Distress - Head Exam Head Exam: ATRAUMATIC, NORMOCEPHALIC - Eye Exam Eye Exam: EOMI, Normal appearance - ENT Exam ENT Exam: Mucous Membranes Moist - Respiratory Exam Respiratory Exam: NORMAL BREATHING PATTERN. absent: Respiratory Distress - Cardiovascular Exam Cardiovascular Exam: REGULAR RHYTHM. absent: Tachycardia - GI/Abdominal Exam GI & Abdominal Exam: Soft, Tenderness (michele-incisional, midline vertical abdominal incision CDI staple closure. ONQ in place) - Extremities Exam Extremities Exam: absent: Calf Tenderness - Neurological Exam Neurological Exam: Alert, Awake - Psychiatric Exam Psychiatric exam: Normal Affect, Normal Mood - Skin Skin Exam: Dry, Normal Color, Warm Assessment and Plan - Assessment and Plan (Free Text) Assessment: 61 y/o male w/ SMA syndrome s/p open gastrojejunostomy POD3 Plan: -+ flatus, ok for trial of CLD -deescalate pain medications, ok for po meds -patient needs to be OOB today at least to chair -encourage deep breathing exercises -monitor for bowel function -labs 04/14 -f/u dietary recs regarding peripheral nutrition -will d/w Dr. Everton Art PGY3
--- NOTE | 2017-04-13 08:31 | CON ---
DATE: 04/12/2017 PRESENTATION: Patient is a 61-year-old male, very slight of build, seen at bedside. Patient was admitted to the hospital on 04/02/2017 due to complaining of abdominal pain for 2 days and nausea with vomiting to relieve himself and not eating very well. Consult was called on 04/11 due to concerns that patient may be having anxiety and medication-seeking behavior. Patient was not fully cooperative with this examination. He is absolutely annoyed that I am bothering him and does not feel that he is depressed or anxious or has any reason to talk to me and is sarcastic and resistant with the interview. Patient indicates, at this time, he lives with his 25-year-old son that he has not been doing very well taking care of himself before he came in the hospital and he had to come in because he had some stomach problems. He denies any psychiatric history. He has never seen a psychiatrist before. He has never taken any psychiatric medications and never had a suicide attempt. He indicates that medically, he has a history of stroke. In terms of his drug and alcohol use, he denies use of drugs, but indicates that he drinks beer okay, evidently 1 or 2 beers daily when he is not in the hospital. He denies ever being arrested or having any history or having any access to guns. He denies any family history of psychiatric illness. He indicates he grew up in [place]. He got a great childhood. He was the middle child. He dropped out in cathy year, he does not know why. He did get his GED and then he worked, refuses to tell me what kind of jobs; he he has done everything. He was for 28 years, has a daughter and a son. The daughter is 40 and the son is 25. His , when she was 50 years old, of an aneurysm. VITAL SIGNS: The patient's current vital signs include temperature of 99.4, pulse rate of 88, blood pressure of 142/93, and an O2 sat of 93. MENTAL STATUS EXAMINATION: Patient is alert and oriented x3, though he keeps his eyes shut and repeatedly tells me he does not want to answer questions, he just wants to sleep. His behavior is uncooperative. Speech rate and volume are within normal limits. Mood is irritable. Affect is constricted. Thoughts are concrete and goal directed. He denies being suicidal or homicidal. Denies the presence of hallucinations, delusions, or paranoia. His concentration and focus, he indicates are good. His memory, both short and [employer], is adequate. His appetite and sleep are not normalized due to the symptoms he is experiencing. DIAGNOSTIC IMPRESSION: Mood disorder, unspecified. PLAN: Patient denies being suicidal or homicidal and appears in no imminent danger of hurting himself or others. He does not have any psychiatric history. No history of suicide attempts and really is resistant to the idea of having any current psychiatric consultation. He denies being depressed or anxious. Does not want any treatment or referrals for outpatient services. I will sign off on this patient at this time. Please call if there are any further needs. This case has been discussed with Dr. Conn. Krista Silveira APN Terra Conn MD
[2017-04-13] MEDS: Dextrose 5%/0.45% NS 1,000 ML IV SCH ×2 (09:32→18:18)
--- NOTE | 2017-04-13 19:15 | PN ---
DATE: 04/13/2017 REASON FOR CONSULTATION AND FOLLOWUP: Preop evaluation, risk stratification, postop followup, status post small bowel obstruction, status post gastrojejunostomy. SUBJECTIVE: The patient denies any chest pain. Complaining of abdominal pain in the operative site. OBJECTIVE: GENERAL: Not in acute distress. VITAL SIGNS: As follows: Temperature afebrile, heart rate 82, blood pressure 140/88. HEENT: PERRLA. Extraocular muscles intact. NECK: Supple. No carotid bruit or thyromegaly. CHEST: Clear to auscultation. HEART: S1, S2 regular. ABDOMEN: Soft. EXTREMITIES: Clubbing and cyanosis negative. LABORATORY DATA: As follows: WBC 6.8, hemoglobin 10.9, hematocrit 32.3, platelet count 435. Chemistry showed sodium 140, potassium 3.3, chloride 99, carbon dioxide 27, anion gap of 17, BUN 27, creatinine 0.6. IMPRESSION: Status post perforation of the bowel, status post bowel obstruction, status post abdominal surgery, gastrojejunostomy, cerebrovascular accident. RECOMMENDATIONS: We will continue antibiotic. Further recommendations as per surgery. CVA status is stable. Continue DVT prophylaxis, continue low-dose beta-michelle. Supplement potassium as needed. Thank you, Dr. Lantigua for providing us the opportunity in taking care of Brandyn Wang. We will follow with you. Velvet Bey MD
[2017-04-13] MEDS: Lidocaine 5% Patch TD SCH (21:34)
--- NOTE | 2017-04-13 22:42 | PN ---
DATE: 04/13/2017 PULMONARY PROGRESS NOTE REFERRING PHYSICIAN: Radha Lantigua MD. SUBJECTIVE: He is lying in the bed, head at 45 degrees, feels a little better, more awake and alert. Abdominal pain is still there. Has some hiccups. No vomiting. Two bowel movements. No leg pain. No leg swelling. OBJECTIVE: GENERAL: In no acute distress. VITAL SIGNS: Temp is 99, heart rate is 105, respiratory rate is 20, blood pressure 120/60, pulse ox 90% on nasal cannula. HEENT: Moist mucous membrane. Crowded airway. NECK: Supple. No JVD. LUNGS: Have a fair airflow with few rhonchi. HEART: S1 and S2. ABDOMEN: Midline surgical wound looks okay. Positive bowel sound. Mild tenderness. EXTREMITIES: There is no edema. NEUROLOGICAL: Awake, alert. Follows simple command. LABORATORY DATA: Shows hemoglobin 10.1 yesterday. No other lab is available since yesterday. MEDICATIONS: He is on IV fluid D5 half normal saline 85 mL/hour, Dilaudid 0.5 mg q. 4 hours p.r.n., Effexor 37.5 mg daily, Flomax 0.4 mg daily, folic acid 1 mg daily, heparin 5000 units subcu q. 8 hours, lidocaine patch daily, metoprolol tartrate 12.5 mg twice a day, Neurontin 300 mg 3 times a day, Nicoderm patch daily, Percocet 10/325 one tab q. 4 hours p.r.n., Protonix 40 mg daily, mirtazapine 50 mg at bedtime, ReQuip 1 mg in a.m. and at bedtime, Tegretol 100 mg twice a day, Zofran p.r.n. basis. IMPRESSION AND PLAN: Partial small bowel obstruction, had a superior mesenteric artery syndrome, status post gastrojejunostomy, chronic obstructive lung disease, questionable restless legs syndrome, malnutrition, chronic pain syndrome. Pulmonary point of view, doing okay. Keep head at 45 degrees. Incentive spirometer. Supplement oxygen. Gastric prophylaxis, deep venous thrombosis prophylaxis. Out of bed to chair. Start ambulating. Thank you and we will follow with you. We will order labs for the morning. Velvet Castillo MD [facility] # [id number]
[2017-04-14] MEDS: HYDROmorphone 0.5 mg/0.5 ml ISec IVP PRN ×6 (01:17→23:55)
--- NOTE | 2017-04-14 02:39 | PN ---
DATE: SUBJECTIVE: Patient was seen and examined on the bedside, still complaining about abdominal pain, passes gas. No bowel movement. No fever. No chills. No nausea or vomiting overnight. No headache. No dizziness. Tolerating liquid food very well. PHYSICAL EXAMINATION VITAL SIGNS: Temperature 98.4, pulse 82, respiratory rate 18, blood pressure 140/88, pulse oximetry 96. HEENT: Head normocephalic, atraumatic. Eyes PERRLA. Extraocular muscles intact. Conjunctivae clear. Nose patent. Mucous membrane moist. NECK: Supple. No carotid bruit. No JVD or thyromegaly. CHEST: Bilaterally symmetrical. HEART: S1 and S2 positive. LUNGS: Clear to auscultation. ABDOMEN: Soft, tender on palpation. EXTREMITIES: No edema. No cyanosis. NEUROLOGICAL: The patient is awake, alert. Moving all 4 extremities. No focal deficit. MEDICATIONS: Tegretol, folic acid, Neurontin, heparin, Dilaudid, Lidoderm, Lopressor, Remeron, Nicoderm, Zofran, Percocet, Protonix, Requip, Flomax, Effexor. LABORATORY DATA: White blood cells 6.8, hemoglobin 10.1, hematocrit 32.2, platelets 235. Sodium 140, potassium 3.7, BUN 26, creatinine 0.6, glucose 113. ASSESSMENT AND PLAN: Mr. Brandyn Wang is a 61-year-old male with anemia, renal insufficiency, hyperglycemia with superior mesenteric artery syndrome, status post open gastrojejunostomy, postoperative day #3. He passes flatus, okay for trial of clear liquid diet. Patient has a history of narcotic abuse. We should give him minimum pain medication. Need to out of the bed, physical therapy. Encourage deep breathing exercises. Monitor for bowel function. Surgery is done by Dr. Toscano, the surgeon. Patient was seen by manager case management Dr. Bey, and Dr. Castillo. History of stroke, status post microperforation of the bowel, status post bowel obstruction. We will continue antibiotics. Cardiovascular status is stable. Continue deep vein thrombosis and gastrointestinal prophylaxis, low-dose beta blockers. Supplement potassium as needed. Discussion done with patient and patient's staff. We will follow up. Radha Lantigua MD
[2017-04-14] MEDS: Oxycodone/Acetaminophen 10/325 mg Tab PO PRN ×4 (03:27→22:11)
[2017-04-14 07:10] LABS: HEMOGLOBIN 9.5 g/dL (14.0-18.0); MEAN CELL VOLUME 90.1 fl (80.0-105.0); MEAN CORPUSCULAR HEMOGLOBIN 28.6 pg (25.0-35.0); MEAN CORPUSCULAR HGB CONC 31.8 g/dl (31.0-37.0); MEAN PLATELET VOLUME 9.7 fl (7.0-11.0); RBC 3.32 10^6/uL (3.5-6.1); RED CELL DISTRIBUTION WIDTH 18.5 % (11.5-14.5); WHITE BLOOD COUNT 9.2 10^3/ul (4.5-11.0)
[2017-04-14 07:37] LABS: ALB/GLOB RATIO 1.2 (1.1-1.8); ALBUMIN 3.3 g/dL (3.0-4.8); ALT/SGPT 21 U/L (7-56); AST/SGOT 19 U/L (17-59); BLOOD UREA NITROGEN 20 mg/dL (7-21); CALCIUM 9.2 mg/dL (8.4-10.5); GFR AFRICAN-AMERICAN > 60; GFR NON-AFRICAN AMERICAN > 60; MAGNESIUM 2.1 mg/dL (1.7-2.2)
--- NOTE | 2017-04-14 10:03 | CP.PCM.PN ---
Subjective - Date & Time of Evaluation Date of Evaluation: 04/14/17 Time of Evaluation: 10:01 - Subjective Subjective: Surgery: Dr. Toscano Patient reports pain improving. Patient denies being OOB since OR. He denies using IS. He reports flatus no BM. Objective - Vital Signs/Intake and Output Vital Signs (last 24 hours): Temp Pulse Resp BP Pulse Ox 98.8 F 79 21 137/93 H 100 04/14/17 07:30 04/14/17 09:48 04/14/17 07:30 04/14/17 09:48 04/14/17 07:30 Intake and Output: 04/14/17 04/14/17 06:59 18:59 Intake Total 180 Output Total 500 Balance -320 - Medications Medications: Current Medications Carbamazepine (Tegretol) 100 mg PO BID [facility] PRN Reason: Protocol Last Admin: 04/14/17 09:47 Dose: 100 mg Folic Acid (Folic Acid) 1 mg PO DAILY [facility] Last Admin: 04/14/17 09:47 Dose: 1 mg Gabapentin (Neurontin) 300 mg PO TID [facility] PRN Reason: Protocol Last Admin: 04/14/17 09:47 Dose: 300 mg Heparin Sodium (Porcine) (Heparin) 5,000 units SC Q8 [facility] PRN Reason: Protocol Last Admin: 04/14/17 06:50 Dose: 5,000 units Hydromorphone HCl (Dilaudid) 0.5 mg IVP Q4H PRN PRN Reason: Pain, severe (8-10) Last Admin: 04/14/17 09:48 Dose: 0.5 mg Potassium Chloride 20 meq/ (Dextrose/Sodium Chloride) 1,010 mls @ 85 mls/hr IV .[id number] [facility] Lidocaine (Lidoderm) 1 ea TD 2200 [facility] Last Admin: 04/13/17 21:34 Dose: Not Given Metoprolol Tartrate (Lopressor) 12.5 mg PO BID [facility] Last Admin: 04/14/17 09:48 Dose: 12.5 mg Mirtazapine (Remeron) 15 mg PO HS [facility] Last Admin: 04/13/17 21:34 Dose: 15 mg Nicotine (Nicoderm Cq) 1 patch TD DAILY [facility] Last Admin: 04/13/17 11:11 Dose: 1 patch Ondansetron HCl (Zofran Inj) 4 mg IVP Q6H PRN PRN Reason: Nausea/Vomiting Last Admin: 04/14/17 08:28 Dose: 4 mg Oxycodone/Acetaminophen (Percocet 10/325 Mg Tab) 1 tab PO Q4H PRN PRN Reason: Pain, moderate (4-7) Last Admin: 04/14/17 07:47 Dose: 1 tab Pantoprazole Sodium (Protonix Inj) 40 mg IVP DAILY [facility] Last Admin: 04/14/17 09:46 Dose: 40 mg Ropinirole HCl (Requip) 1 mg PO AMHS [facility] Last Admin: 04/14/17 09:48 Dose: 1 mg Tamsulosin HCl (Flomax) 0.4 mg PO DAILY [facility] Last Admin: 04/14/17 09:41 Dose: 0.4 mg Venlafaxine HCl (Effexor) 37.5 mg PO DAILY [facility] Last Admin: 04/14/17 09:47 Dose: 37.5 mg - Labs Labs: 04/14/17 06:30 04/14/17 06:30 PT 12.5 SECONDS (9.4-12.5) 04/09/17 15:35 INR 1.09 (0.93-1.08) H 04/09/17 15:35 APTT 32.7 Seconds (25.1-36.5) 04/09/17 15:35 - Constitutional Appears: Non-toxic, No Acute Distress - Head Exam Head Exam: ATRAUMATIC, NORMOCEPHALIC - Eye Exam Eye Exam: EOMI, Normal appearance - ENT Exam ENT Exam: Mucous Membranes Moist - Respiratory Exam Respiratory Exam: NORMAL BREATHING PATTERN. absent: Respiratory Distress - Cardiovascular Exam Cardiovascular Exam: REGULAR RHYTHM. absent: Tachycardia - GI/Abdominal Exam GI & Abdominal Exam: Soft. absent: Tenderness, Rebound - Neurological Exam Neurological Exam: Alert, Awake Assessment and Plan - Assessment and Plan (Free Text) Assessment: 61 y/o male s/p open gastrojejunostomy POD4 Plan: -+ flatus, ok for CLD -deescalate pain medications, ok for po meds -patient needs to be OOB today to chair. States he can ambulate if someone helps him -encourage deep breathing exercises, discussed importance of IS use -monitor for bowel function -f/u dietary recs regarding peripheral nutrition -will d/w Dr. Everton POLANCOhannah PGY3
--- NOTE | 2017-04-14 12:39 | RAD ---
HISTORY: SOB COMPARISON: Chest radiographs 04/02/2017. FINDINGS: LUNGS: Inspiratory volume appears diminished. Bilateral medial basilar atelectasis is favored over interval infiltrates. Clinically correlate nevertheless. Linear atelectasis is appreciate the medial right base. PLEURA: No significant pleural effusion identified, no pneumothorax apparent. CARDIOVASCULAR: Normal. OSSEOUS STRUCTURES: No significant abnormalities. VISUALIZED UPPER ABDOMEN: Retained oral contrast identified within hepatic and splenic flexure regions. OTHER FINDINGS: None. IMPRESSION: Diminished history volume. Limited medial bilateral basilar atelectasis is favored over acute infiltrates in the interval.
--- NOTE | 2017-04-14 12:46 | CP.PCM.PN ---
<Claudia Mccallum - Last Filed: 04/14/17 12:42> Subjective - Date & Time of Evaluation Date of Evaluation: 04/14/17 Time of Evaluation: 09:40 - Subjective Subjective: Chief Complaint: Hiccups, N/V 61 yr male w/ hstory of CVA L side deficits, multiple lou, restless leg syndrome, chronic back pain, & L knee surgery. Pt admitted to [facility] for generalized abdominal pain. Pt was taking percocet at home for chronic back pain and began to feel abdominal pain relieved by self-induced emesis. on 04/10 pt was in OR for laprascopic endoscopy, pt diagnosed w super mesenteric artery syndrome. Today, pt is seen out of bed to chair and tolerating position change without any distress. Pt states he continues to have n/v and constant hiccups which he states are improved by zofran. Denies any fever, chills, chest pain, shortness of breath, diarrhea, constipation, or urinary problems. Objective - Vital Signs/Intake and Output Vital Signs (last 24 hours): Temp Pulse Resp BP Pulse Ox 98.8 F 79 21 137/93 H 100 04/14/17 07:30 04/14/17 09:48 04/14/17 07:30 04/14/17 09:48 04/14/17 07:30 Intake and Output: 04/14/17 04/14/17 06:59 18:59 Intake Total 180 Output Total 500 Balance -320 - Medications Medications: Current Medications Carbamazepine (Tegretol) 100 mg PO BID [facility] PRN Reason: Protocol Last Admin: 04/14/17 09:47 Dose: 100 mg Folic Acid (Folic Acid) 1 mg PO DAILY [facility] Last Admin: 04/14/17 09:47 Dose: 1 mg Gabapentin (Neurontin) 300 mg PO TID [facility] PRN Reason: Protocol Last Admin: 04/14/17 09:47 Dose: 300 mg Heparin Sodium (Porcine) (Heparin) 5,000 units SC Q8 [facility] PRN Reason: Protocol Last Admin: 04/14/17 06:50 Dose: 5,000 units Hydromorphone HCl (Dilaudid) 0.5 mg IVP Q4H PRN PRN Reason: Pain, severe (8-10) Last Admin: 04/14/17 09:48 Dose: 0.5 mg Potassium Chloride 20 meq/ (Dextrose/Sodium Chloride) 1,010 mls @ 85 mls/hr IV .[id number] [facility] Lidocaine (Lidoderm) 1 ea TD 2200 [facility] Last Admin: 04/13/17 21:34 Dose: Not Given Metoprolol Tartrate (Lopressor) 12.5 mg PO BID [facility] Last Admin: 04/14/17 09:48 Dose: 12.5 mg Mirtazapine (Remeron) 15 mg PO HS [facility] Last Admin: 04/13/17 21:34 Dose: 15 mg Nicotine (Nicoderm Cq) 1 patch TD DAILY [facility] Last Admin: 04/14/17 10:03 Dose: 1 patch Ondansetron HCl (Zofran Inj) 4 mg IVP Q6H PRN PRN Reason: Nausea/Vomiting Last Admin: 04/14/17 08:28 Dose: 4 mg Oxycodone/Acetaminophen (Percocet 10/325 Mg Tab) 1 tab PO Q4H PRN PRN Reason: Pain, moderate (4-7) Last Admin: 04/14/17 07:47 Dose: 1 tab Pantoprazole Sodium (Protonix Ec Tab) 40 mg PO ACB [facility] Potassium Chloride (K-Dur 20 Meq Er Tab) 20 meq PO BRK [facility] Ropinirole HCl (Requip) 1 mg PO AMHS [facility] Last Admin: 04/14/17 09:48 Dose: 1 mg Tamsulosin HCl (Flomax) 0.4 mg PO DAILY [facility] Last Admin: 04/14/17 09:41 Dose: 0.4 mg Venlafaxine HCl (Effexor) 37.5 mg PO DAILY [facility] Last Admin: 04/14/17 09:47 Dose: 37.5 mg - Labs Labs: 04/14/17 06:30 04/14/17 06:30 PT 12.5 SECONDS (9.4-12.5) 04/09/17 15:35 INR 1.09 (0.93-1.08) H 04/09/17 15:35 APTT 32.7 Seconds (25.1-36.5) 04/09/17 15:35 - Constitutional Appears: No Acute Distress, Chronically Ill - Head Exam Head Exam: ATRAUMATIC, NORMAL INSPECTION, NORMOCEPHALIC - Eye Exam Additional comments: wearing corrective glasses - ENT Exam ENT Exam: Mucous Membranes Moist, Normal Exam - Neck Exam Neck Exam: Full ROM, Normal Inspection. absent: Lymphadenopathy - Respiratory Exam Respiratory Exam: Clear to Ausculation Bilateral, NORMAL BREATHING PATTERN - Cardiovascular Exam Cardiovascular Exam: REGULAR RHYTHM, +S1, +S2. absent: Murmur - GI/Abdominal Exam GI & Abdominal Exam: Soft, Normal Bowel Sounds Additional comments: (+) hiccups - Exam Additional comments: segal catheter, clear yellow urine - Extremities Exam Additional comments: L arm contracture / L lower extremity weakness. - Neurological Exam Neurological Exam: Alert, Awake - Psychiatric Exam Psychiatric exam: Depressed, Flat Affect - Skin Skin Exam: Dry, Pallor, Warm Assessment and Plan (1) Nausea and vomiting Status: Acute (2) Hiccups Status: Acute (3) SMAS (superior mesenteric artery syndrome) Status: Acute (4) Dehydration Status: Acute (5) Chronic back pain Status: Acute (6) Anemia Status: Acute (7) Abdominal pain Status: Acute (8) Failure to thrive in adult Status: Acute (9) Partial small bowel obstruction Status: Ruled-out - Assessment and Plan (Free Text) Plan: Tolerating Liquid diet. Seizure precautions. VTE/GI prophlyaxis. Nicotine patch ordered. PT/OT on board. Diagnosis: SMA (ruled out opioid induced constipation & SBO). PT/OT onboard. Pain management: gabapentin, toradol IVP, lidocaine, percocet 1 tab q 4h Consults: GI - Dr. Oznua Surgery - Dr. Toscano Neuro - Dr. Suni Landrum - Dr. Diaz Cardio - Dr. Bey Psych - Dr. Conn Reviewed: CT abd/pelvis = contrast seen throughout small bowel & colon, no evidence of obstruction, small amount of extra luminar air in the pelvis which is no longer seen Xray SB = NEGATIVE obstruction ECHO = EF 55-60%, ECG = Sinus tachy, w/ PAC CT angio = small droplets of free air in the anterior pelvis, suspicious for bowel perforation, small infrarenal abd aortic aneurysm, no evidence of SMA, occlusion, stenosis CT abd/pelvis = WNL <Radha Lantigua - Last Filed: 04/15/17 00:11> Subjective - Subjective Subjective: 61 yr male w/ hstory of CVA L side deficits, multiple lou, restless leg syndrome, chronic back pain, & L knee surgery. Pt admitted to [facility] for generalized abdominal pain. Pt was taking percocet at home for chronic back pain and began to feel abdominal pain relieved by self-induced emesis. on 04/10 pt was in OR for laprascopic endoscopy, pt diagnosed w super mesenteric artery syndrome. Today, pt is seen out of bed to chair and tolerating position change without any distress. Pt states he continues to have n/v and constant hiccups which he states are improved by zofran. Denies any fever, chills, chest pain, shortness of breath, diarrhea, constipation, or urinary problems.pt is seen and examined at bed side . looking comfortable , agreed all above . will f/u Objective - Vital Signs/Intake and Output Vital Signs (last 24 hours): Temp Pulse Resp BP Pulse Ox 99 F 98 H 18 119/79 90 L 04/14/17 16:00 04/14/17 17:22 04/14/17 16:00 04/14/17 17:22 04/14/17 16:00 Intake and Output: 04/14/17 04/15/17 18:59 06:59 Intake Total 0 50 Output Total 0 75 Balance 0 -25 - Medications Medications: Current Medications Albuterol/Ipratropium (Duoneb 3 Mg/0.5 Mg (3 Ml) Ud) 3 ml IH [id number] [facility] Carbamazepine (Tegretol) 100 mg PO BID [facility] PRN Reason: Protocol Last Admin: 04/14/17 17:22 Dose: 100 mg Folic Acid (Folic Acid) 1 mg PO DAILY [facility] Last Admin: 04/14/17 09:47 Dose: 1 mg Gabapentin (Neurontin) 300 mg PO TID [facility] PRN Reason: Protocol Last Admin: 04/14/17 17:22 Dose: 300 mg Heparin Sodium (Porcine) (Heparin) 5,000 units SC Q8 [facility] PRN Reason: Protocol Last Admin: 04/14/17 22:11 Dose: 5,000 units Hydromorphone HCl (Dilaudid) 0.5 mg IVP Q4H PRN PRN Reason: Pain, severe (8-10) Last Admin: 04/14/17 23:55 Dose: 0.5 mg Potassium Chloride 20 meq/ (Dextrose/Sodium Chloride) 1,010 mls @ 85 mls/hr IV .[id number] [facility] Last Admin: 04/14/17 14:37 Dose: 85 mls/hr Lidocaine (Lidoderm) 1 ea TD 2200 [facility] Last Admin: 04/14/17 22:14 Dose: Not Given Metoprolol Tartrate (Lopressor) 12.5 mg PO BID [facility] Last Admin: 04/14/17 17:22 Dose: 12.5 mg Mirtazapine (Remeron) 15 mg PO HS [facility] Last Admin: 04/14/17 22:13 Dose: 15 mg Nicotine (Nicoderm Cq) 1 patch TD DAILY [facility] Last Admin: 04/14/17 10:03 Dose: 1 patch Ondansetron HCl (Zofran Inj) 4 mg IVP Q6H PRN PRN Reason: Nausea/Vomiting Last Admin: 04/14/17 23:56 Dose: 4 mg Oxycodone/Acetaminophen (Percocet 10/325 Mg Tab) 1 tab PO Q4H PRN PRN Reason: Pain, moderate (4-7) Last Admin: 04/14/17 22:11 Dose: 1 tab Pantoprazole Sodium (Protonix Ec Tab) 40 mg PO ACB [facility] Potassium Chloride (K-Dur 20 Meq Er Tab) 20 meq PO BRK [facility] Last Admin: 04/14/17 13:08 Dose: 20 meq Ropinirole HCl (Requip) 1 mg PO AMHS [facility] Last Admin: 04/14/17 22:11 Dose: 1 mg Tamsulosin HCl (Flomax) 0.4 mg PO DAILY [facility] Last Admin: 04/14/17 09:41 Dose: 0.4 mg Venlafaxine HCl (Effexor) 37.5 mg PO DAILY [facility] Last Admin: 04/14/17 09:47 Dose: 37.5 mg - Labs Labs: 04/14/17 06:30 04/14/17 06:30 PT 12.5 SECONDS (9.4-12.5) 04/09/17 15:35 INR 1.09 (0.93-1.08) H 04/09/17 15:35 APTT 32.7 Seconds (25.1-36.5) 04/09/17 15:35
[2017-04-14] MEDS ORDERED: Potassium Chloride 20 mEq ER Tab PO ONE (12:59)
[2017-04-14] MEDS: Potassium Chloride 20 mEq ER Tab PO SCH (13:08)
[2017-04-14] MEDS: Potassium Chloride 20 MEQ in Dextrose 5%/0.45% NS 1,000 ML IV SCH (14:37)
[2017-04-14] MEDS: Lidocaine 5% Patch TD SCH (22:14)
--- NOTE | 2017-04-15 01:53 | PN ---
DATE: 04/14/2017 PULMONARY PROGRESS NOTE REFERRING PHYSICIAN: Radha Lantigua MD SUBJECTIVE: Patient is sitting up in the reclining chair. Night was unremarkable. Feels better. Still n.p.o. Having ice chips. No shortness of breath or chest pain. Has abdominal pain. No bowel movement. No leg pain or leg swelling. OBJECTIVE: GENERAL: In no acute distress. VITAL SIGNS: Temperature is 99, heart rate is 98, respiratory rate is 18, blood pressure 119/79, pulse ox is 90% on room air. HEENT: Moist mucous membrane. No ulcer or thrush noted. NECK: Supple. No JVD. LUNGS: Have fair airflow with rhonchi. HEART: S1 and S2. ABDOMEN: Mildly distended. Surgical site looks okay. EXTREMITIES: There is no edema. NEUROLOGIC: Awake, alert. Follows simple command. MEDICATIONS: He is on Dilaudid 0.5 mg IV q. 4 hour p.r.n., Effexor 37.5 mg daily, Flomax 0.4 mg daily, folic acid 1 mg daily, heparin 5000 units subcu q. 8 hour, potassium 20 mEq daily, lidocaine patch to the affected area, metoprolol tartrate 12.5 mg twice a day, Neurontin 300 mg 3 times a day, Nicoderm patch daily, Percocet 10/325 mg one tab q. 4 hour p.r.n., IV fluid 85 mL per hour, Protonix 40 mg daily, Remeron 15 mg at bedtime, ReQuip 1 mg at bedtime, and Zofran p.r.n. basis. LABORATORY DATA: Shows hemoglobin 9.5, hematocrit 29.9, WBC 9.2, platelet is 374. Sodium 136, potassium 3.0, chloride 95, bicarbonate 32, BUN 20, creatinine 0.5, glucose 135, calcium is 9.2, phosphorus is 2.1, AST 19, ALT 21, alkaline phosphatase is 85, albumin 3.3. Chest x-ray done today shows diminished lung volume, limited medial bilateral basal atelectasis. IMPRESSION AND PLAN: Partial small bowel obstruction, had a superior mesenteric artery syndrome, status post gastrojejunostomy, chronic obstructive lung disease, restless legs disease - questionable, malnutrition, pain syndrome, basal atelectasis. Continue incentive spirometer. Add inhaled bronchodilator. Replace potassium. GI and Surgical followup. Gastric and deep venous thrombosis prophylaxis. Thank you and we will follow with you. Velvet Castillo MD
[2017-04-15] MEDS: HYDROmorphone 0.5 mg/0.5 ml ISec IVP PRN ×6 (04:00→23:56)
[2017-04-15] MEDS: Potassium Chloride 20 MEQ in Dextrose 5%/0.45% NS 1,000 ML IV SCH ×2 (05:02→18:41)
[2017-04-15] MEDS: Oxycodone/Acetaminophen 10/325 mg Tab PO PRN (05:06)
[2017-04-15] MEDS: Albuterol-Ipratrop 3 mg / 0.5 (3 ml) UD IH SCH ×3 (07:43→23:56)
[2017-04-15 07:57] LABS: HEMOGLOBIN 9.7 g/dL (14.0-18.0); MEAN CELL VOLUME 90.6 fl (80.0-105.0); MEAN CORPUSCULAR HEMOGLOBIN 28.6 pg (25.0-35.0); MEAN CORPUSCULAR HGB CONC 31.6 g/dl (31.0-37.0); MEAN PLATELET VOLUME 10.4 fl (7.0-11.0); RBC 3.39 10^6/uL (3.5-6.1); RED CELL DISTRIBUTION WIDTH 18.6 % (11.5-14.5); WHITE BLOOD COUNT 7.9 10^3/ul (4.5-11.0)
[2017-04-15 08:15] LABS: BLOOD UREA NITROGEN 20 mg/dL (7-21); CALCIUM 9.2 mg/dL (8.4-10.5); GFR AFRICAN-AMERICAN > 60; GFR NON-AFRICAN AMERICAN > 60; MAGNESIUM 2.2 mg/dL (1.7-2.2)
[2017-04-15] MEDS: Pantoprazole 40 mg EC Tab PO SCH (08:16)
[2017-04-15] MEDS: Potassium Chloride 20 mEq ER Tab PO SCH (08:18)
--- NOTE | 2017-04-15 13:31 | CP.PCM.PN ---
Subjective - Date & Time of Evaluation Date of Evaluation: 04/15/17 Time of Evaluation: 13:28 - Subjective Subjective: Surgery: Dr. Toscano Patient unable tolerate po. Reports vomiting w/ po liquid intake. Denies fever/ chills. Has been OOB to chair. Reports flatus and small BM. Objective - Vital Signs/Intake and Output Vital Signs (last 24 hours): Temp Pulse Resp BP Pulse Ox 98.3 F 115 H 20 123/85 94 L 04/15/17 08:56 04/15/17 10:18 04/15/17 08:56 04/15/17 10:18 04/15/17 00:00 Intake and Output: 04/15/17 04/15/17 06:59 18:59 Intake Total 50 Output Total 75 Balance -25 - Medications Medications: Current Medications Albuterol/Ipratropium (Duoneb 3 Mg/0.5 Mg (3 Ml) Ud) 3 ml IH [id number] [facility] Last Admin: 04/15/17 13:11 Dose: 3 ml Carbamazepine (Tegretol) 100 mg PO BID [facility] PRN Reason: Protocol Last Admin: 04/15/17 10:17 Dose: Not Given Folic Acid (Folic Acid) 1 mg PO DAILY [facility] Last Admin: 04/15/17 10:18 Dose: Not Given Gabapentin (Neurontin) 300 mg PO TID [facility] PRN Reason: Protocol Last Admin: 04/15/17 10:17 Dose: Not Given Heparin Sodium (Porcine) (Heparin) 5,000 units SC Q8 [facility] PRN Reason: Protocol Last Admin: 04/15/17 06:49 Dose: 5,000 units Hydromorphone HCl (Dilaudid) 0.5 mg IVP Q4H PRN PRN Reason: Pain, severe (8-10) Last Admin: 04/15/17 12:07 Dose: 0.5 mg Potassium Chloride 20 meq/ (Dextrose/Sodium Chloride) 1,010 mls @ 85 mls/hr IV .[id number] [facility] Last Admin: 04/15/17 05:02 Dose: 85 mls/hr Lidocaine (Lidoderm) 1 ea TD 2200 [facility] Last Admin: 04/14/17 22:14 Dose: Not Given Metoprolol Tartrate (Lopressor) 12.5 mg PO BID [facility] Last Admin: 04/15/17 10:18 Dose: Not Given Mirtazapine (Remeron) 15 mg PO HS [facility] Last Admin: 04/14/17 22:13 Dose: 15 mg Nicotine (Nicoderm Cq) 1 patch TD DAILY [facility] Last Admin: 04/15/17 12:15 Dose: 1 patch Ondansetron HCl (Zofran Inj) 4 mg IVP Q4H PRN PRN Reason: Nausea/Vomiting Last Admin: 04/15/17 12:15 Dose: 4 mg Oxycodone/Acetaminophen (Percocet 10/325 Mg Tab) 1 tab PO Q4H PRN PRN Reason: Pain, moderate (4-7) Last Admin: 04/15/17 05:06 Dose: 1 tab Pantoprazole Sodium (Protonix Ec Tab) 40 mg PO ACB [facility] Last Admin: 04/15/17 08:16 Dose: Not Given Potassium Chloride (K-Dur 20 Meq Er Tab) 20 meq PO BRK [facility] Last Admin: 04/15/17 08:18 Dose: Not Given Ropinirole HCl (Requip) 1 mg PO AMHS [facility] Last Admin: 04/15/17 10:16 Dose: Not Given Tamsulosin HCl (Flomax) 0.4 mg PO DAILY [facility] Last Admin: 04/15/17 10:19 Dose: Not Given Venlafaxine HCl (Effexor) 37.5 mg PO DAILY [facility] Last Admin: 04/15/17 10:19 Dose: Not Given - Labs Labs: 04/15/17 07:00 04/15/17 07:00 PT 12.5 SECONDS (9.4-12.5) 04/09/17 15:35 INR 1.09 (0.93-1.08) H 04/09/17 15:35 APTT 32.7 Seconds (25.1-36.5) 04/09/17 15:35 - Constitutional Appears: Non-toxic, No Acute Distress, Cachectic - Head Exam Head Exam: ATRAUMATIC, NORMOCEPHALIC - Eye Exam Eye Exam: EOMI, Normal appearance - ENT Exam ENT Exam: Mucous Membranes Dry - Respiratory Exam Respiratory Exam: NORMAL BREATHING PATTERN. absent: Respiratory Distress - Cardiovascular Exam Cardiovascular Exam: Tachycardia, REGULAR RHYTHM - GI/Abdominal Exam GI & Abdominal Exam: Soft. absent: Distended, Guarding, Tenderness - Neurological Exam Neurological Exam: Alert, Awake - Psychiatric Exam Psychiatric exam: Normal Affect, Normal Mood - Skin Skin Exam: Dry, Warm Assessment and Plan - Assessment and Plan (Free Text) Assessment: 61 y/o male w/ SMA syndrome s/p gastrojejunostomy POD5 Plan: -patient unable to tolerate po, ileus v/s obstruction -f/u abdominal film -may consider upper GI series -cont fluid hydration and PPN -consider PICC line placement -daily labs -supportive care -IS use -OOB -further recs per Dr. Everton POLANCOProvo PGY3
--- NOTE | 2017-04-15 14:48 | RAD ---
HISTORY: r/o obstruction COMPARISON: 04/09/2009. CT abdomen and pelvis. FINDINGS: BOWEL: Contrast identified an unremarkable colon. Anterior abdominal wall surgical suture line not seen previously. BONES: Normal. OTHER FINDINGS: None. IMPRESSION: No acute findings related to/accounting for the clinical presentation. Additional benign and/or incidental findings described above.
--- NOTE | 2017-04-15 15:18 | PN ---
DATE: 04/15/2017 PULMONARY PROGRESS NOTE REFERRING PHYSICIAN: Radha Lantigua MD SUBJECTIVE: He is lying in the bed, head at 45 degrees. Had some nausea and vomiting this morning. No headache, no rhinitis, no chest pain, some abdominal pain. No bowel movement. No leg pain or leg swelling. OBJECTIVE GENERAL: In no acute distress. VITAL SIGNS: Temperature is 98, heart rate is 150, respiratory rate is 20, blood pressure 123/85, pulse ox is 94% on nasal cannula. HEENT: Moist mucous membrane. No ulcer or thrush noted. NECK: Supple. No JVD. LUNGS: Has a fair airflow with rhonchi. HEART: S1, S2. ABDOMEN: Positive bowel sound. Distended. Incision site looks okay. EXTREMITIES: There is no edema. NEUROLOGIC: Awake and alert. Follows simple command. MEDICATIONS: He is on Dilaudid 0.5 mg q. 4 hours p.r.n. , Effexor 37.5 mg daily, Flomax 0.4 mg daily, folic acid 1 mg daily, heparin 5000 units subcutaneously q. 8 hours, potassium 20 mEq daily, Lidoderm patch to the affected area, metoprolol tartrate 12.5 mg twice a day, Neurontin 300 mg 3 times a day, Nicoderm patch daily, Percocet 10/325 one tablet q. 4 hours p.r.n., potassium supplement, Protonix 40 mg daily, Remeron 15 mg at bedtime, ReQuip 1 mg at bedtime, Tegretol 100 mg twice a day, Zofran on a p.r.n. basis. LABORATORY DATA: Shows hemoglobin 9.7, hematocrit 30.7, WBC 7.9, platelets is 354,000. Sodium 137, potassium 3.7, chloride 98, bicarbonate 21, BUN 20, creatinine 0.5, glucose 128, calcium is 9.2, magnesium 2.2. IMPRESSION AND PLAN: Partial small bowel obstruction; has superior mesenteric artery syndrome, status post gastrojejunostomy; chronic obstructive lung disease; restless legs, being followed by Gastroenterology and Surgery. We will let them make decision about nausea and vomiting, keep head elevated at 45 degrees, pulmonary toilet, had a baseline atelectasis, gastric and deep venous thrombosis prophylaxis, out of bed to chair, followup labs in the morning. Thank you and we will follow with you. Velvet Castillo MD [facility] # [id number]
--- NOTE | 2017-04-15 16:41 | PN ---
DATE: Brandyn Wang is complaining of increasing pain. His abdomen is slightly distended, but soft and nontender. His , is emptying, has some nausea, regurgitation, generally feeling miserable. He is requiring more pain medicine than I would think. We will increase the frequency of his Dilaudid, but ask for pain management. He needs to get out of bed and continue his diet. An x-ray is ordered. Rashawn Toscano MD
[2017-04-15] MEDS: Lidocaine 5% Patch TD SCH (23:45)
--- NOTE | 2017-04-16 01:13 | PN ---
DATE: SUBJECTIVE: Patient is a 61-year-old male. Patient was seen and examined on the bedside, sitting on the recliner, complaining about abdominal pain and abdominal distension. Last whole night, he was vomiting, seen by the surgeon and the school operations manager. No fever, no chills. According to him, pain medication is not working. No hematuria, no hematochezia. PHYSICAL EXAMINATION: VITAL SIGNS: Temperature 98.2, pulse 111, blood pressure 126/91, respiratory rate 20. HEENT: Head: Normocephalic, atraumatic. Eyes: PERRLA. Extraocular muscles are intact. Conjunctivae are clear. Nose is patent. Mucous membranes are moist. NECK: Supple. No carotid bruits. No JVD. No thyromegaly. CHEST: Bilaterally symmetrical. HEART: S1, S2 positive. LUNGS: Clear to auscultation. ABDOMEN: Tender in all 4 quadrants. Bowel sounds are diminished. EXTREMITIES: No edema, no cyanosis. NEUROLOGIC: Patient is awake and alert. Moving all 4 extremities. No focal deficits. MEDICATIONS: Dilaudid, albuterol, Effexor, Flomax, folic acid, heparin, potassium, Lidoderm, Lopressor, Neurontin, Percocet, Remeron, Requip, Tegretol, Zofran. LABORATORY DATA: White blood cell 7.9, hemoglobin 9.2, hematocrit 30.7, platelets 354. Sodium 137, potassium 3.7, BUN 20, creatinine 0.5, random glucose 128. ASSESSMENT AND PLAN: Mr. Brandyn Wang is a 61-year-old male with anemia, hyperglycemia, hypophosphatemia, with superior mesenteric artery syndrome, status post gastrojejunostomy, postoperative day #5, cannot tolerate p.o. fluid, having whole night of vomiting and abdominal pain, has a little bit small bowel movement and has flatus. Ileus versus obstruction. ordered, reviewed by me. May patient need upper GI series. Continue hydration. Consider PICC line placement, may be on Monday, daily labs, supportive care, out of bed. Abdominal pain management as per Dr. Toscano. Seen by Dr. Castillo also. Chronic obstructive lung disease, restless leg syndrome, being followed by Gastroenterology, Surgery and Neurology. Gastrointestinal and deep venous thrombosis prophylaxis. Repeat labs. We will follow. Radha Lantigua MD [facility] # [id number] [place]
[2017-04-16 01:15] LABS: ARTERIAL BLOOD GAS HCO3 28.6 mmol/L (21-28); ARTERIAL BLOOD GAS O2 SAT 98.3 % (95-98); ARTERIAL BLOOD GAS PCO2 35 mm/Hg (35-45); ARTERIAL BLOOD GAS PH 7.52 (7.35-7.45); ARTERIAL BLOOD GAS TCO2 29.7 mmol.L (22-28)
--- NOTE | 2017-04-16 02:07 | CP.PCM.PN ---
Subjective - Date & Time of Evaluation Date of Evaluation: 04/16/17 Time of Evaluation: 01:00 - Subjective Subjective: called by nurse pt is tachypneaic tachy cardiac and has pulse ox of 86 %.pt is post op for small bowl obstruction SMA SYNDROME. has been vomiting every night . rectal temp is 100. 3 .apears cahectic. Objective - Vital Signs/Intake and Output Vital Signs (last 24 hours): Temp Pulse Resp BP Pulse Ox 98.2 F 111 H 20 126/91 H 94 L 04/15/17 16:00 04/15/17 16:00 04/15/17 16:00 04/15/17 16:00 04/15/17 00:00 - Medications Medications: Current Medications Albuterol/Ipratropium (Duoneb 3 Mg/0.5 Mg (3 Ml) Ud) 3 ml IH [id number] [facility] Last Admin: 04/15/17 23:56 Dose: 3 ml Carbamazepine (Tegretol) 100 mg PO BID [facility] PRN Reason: Protocol Last Admin: 04/15/17 18:44 Dose: Not Given Folic Acid (Folic Acid) 1 mg PO DAILY [facility] Last Admin: 04/15/17 10:18 Dose: Not Given Gabapentin (Neurontin) 300 mg PO TID [facility] PRN Reason: Protocol Last Admin: 04/15/17 18:44 Dose: Not Given Heparin Sodium (Porcine) (Heparin) 5,000 units SC Q8 [facility] PRN Reason: Protocol Last Admin: 04/15/17 22:23 Dose: 5,000 units Hydromorphone HCl (Dilaudid) 0.5 mg IVP Q3 PRN PRN Reason: Pain, severe (8-10) Last Admin: 04/15/17 23:56 Dose: 0.5 mg Potassium Chloride 20 meq/ (Dextrose/Sodium Chloride) 1,010 mls @ 85 mls/hr IV .[id number] [facility] Last Admin: 04/15/17 18:41 Dose: 85 mls/hr Lidocaine (Lidoderm) 1 ea TD 2200 [facility] Last Admin: 04/15/17 23:45 Dose: Not Given Metoprolol Tartrate (Lopressor) 12.5 mg PO BID [facility] Last Admin: 04/15/17 18:44 Dose: Not Given Mirtazapine (Remeron) 15 mg PO HS [facility] Last Admin: 04/15/17 22:18 Dose: Not Given Nicotine (Nicoderm Cq) 1 patch TD DAILY [facility] Last Admin: 04/15/17 12:15 Dose: 1 patch Ondansetron HCl (Zofran Inj) 4 mg IVP Q4H PRN PRN Reason: Nausea/Vomiting Last Admin: 04/15/17 23:54 Dose: 4 mg Oxycodone/Acetaminophen (Percocet 10/325 Mg Tab) 1 tab PO Q4H PRN PRN Reason: Pain, moderate (4-7) Last Admin: 04/15/17 05:06 Dose: 1 tab Pantoprazole Sodium (Protonix Ec Tab) 40 mg PO ACB [facility] Last Admin: 04/15/17 08:16 Dose: Not Given Potassium Chloride (K-Dur 20 Meq Er Tab) 20 meq PO BRK [facility] Last Admin: 04/15/17 08:18 Dose: Not Given Ropinirole HCl (Requip) 1 mg PO AMHS [facility] Last Admin: 04/15/17 22:18 Dose: Not Given Tamsulosin HCl (Flomax) 0.4 mg PO DAILY [facility] Last Admin: 04/15/17 10:19 Dose: Not Given Venlafaxine HCl (Effexor) 37.5 mg PO DAILY [facility] Last Admin: 04/15/17 10:19 Dose: Not Given - Labs Labs: 04/15/17 07:00 04/15/17 07:00 PT 12.5 SECONDS (9.4-12.5) 04/09/17 15:35 INR 1.09 (0.93-1.08) H 04/09/17 15:35 APTT 32.7 Seconds (25.1-36.5) 04/09/17 15:35 - Constitutional Appears: Cachectic - Head Exam Head Exam: NORMOCEPHALIC - Eye Exam Eye Exam: Normal appearance Pupil Exam: PERRL - ENT Exam ENT Exam: Mucous Membranes Moist - Neck Exam Neck Exam: Full ROM - Respiratory Exam Respiratory Exam: Decreased Breath Sounds Additional comments: pt has decreased breath sound at the bases.rr of 24. - Cardiovascular Exam Cardiovascular Exam: Tachycardia - GI/Abdominal Exam GI & Abdominal Exam: Distended, Diminished Bowel Sounds - Rectal Exam Rectal Exam: Deferred - Extremities Exam Extremities Exam: Full ROM - Neurological Exam Neurological Exam: Alert, Awake - Skin Skin Exam: Warm Additional comments: pt is pale. Assessment and Plan - Assessment and Plan (Free Text) Assessment: hpoxia /tachycardia /tachypnea. post op for bowel obstruction. atelactesis vs infiltrate . fever. Plan: cbc , cmp abg , blood c/s chest x -ray. duonebs, insentive spirometry rocephine 1 gm x1 stat. icu evaluation dr kuhn was called.
[2017-04-16] MEDS: Albuterol-Ipratrop 3 mg / 0.5 (3 ml) UD IH SCH ×4 (02:20→18:23)
[2017-04-16] MEDS ORDERED: cefTRIAXone 1 gm 1 GM/100 ML BAG IVPB STA (03:25)
[2017-04-16 04:06] LABS: BLOOD UREA NITROGEN 22 mg/dL (7-21); CALCIUM 9.3 mg/dL (8.4-10.5); GFR AFRICAN-AMERICAN > 60; GFR NON-AFRICAN AMERICAN > 60; MAGNESIUM 2.3 mg/dL (1.7-2.2)
[2017-04-16 04:21] LABS: GRAN # 5.16 (1.4-6.5); HEMOGLOBIN 9.5 g/dL (14.0-18.0); LYMPH # 0.6 (1.2-3.4); LYMPH % 8.7 % (22.0-35.0); MEAN CELL VOLUME 91.5 fl (80.0-105.0); MEAN CORPUSCULAR HEMOGLOBIN 28.8 pg (25.0-35.0); MEAN CORPUSCULAR HGB CONC 31.5 g/dl (31.0-37.0); MEAN PLATELET VOLUME 10.6 fl (7.0-11.0); MONO # 0.7 (0.1-0.6); MONO % 11.3 % (1.0-6.0); RBC 3.3 10^6/uL (3.5-6.1); RED CELL DISTRIBUTION WIDTH 18.7 % (11.5-14.5); WHITE BLOOD COUNT 6.5 10^3/ul (4.5-11.0)
[2017-04-16 04:56] LABS: VENOUS BLOOD GAS PO2 34 mm/Hg (30-55); VENOUS BLOOD PH 7.47 (7.32-7.43)
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
[2017-04-16] MEDS: HYDROmorphone 0.5 mg/0.5 ml ISec IVP PRN ×5 (07:11→23:15)
--- NOTE | 2017-04-16 08:49 | CP.PCM.PN ---
Subjective - Date & Time of Evaluation Date of Evaluation: 04/16/17 Time of Evaluation: 07:20 - Subjective Subjective: Patient seen and examined this AM. Patient had dypsnea and hypoxia of 87-89% on RA this AM. Increased to 93% on non-rebreather. CXR suspicious for pneumonia vs atelectasis and vascular congestion. ABG showing a metabolic alkalosis. Patient was started on hi-flow O2. Per nursing patient has intermittents small amounts of vomiting. Patient currently refusing NGT. Patient is now DNI/DNR. Discussed with his family Objective - Vital Signs/Intake and Output Vital Signs (last 24 hours): Temp Pulse Resp BP Pulse Ox 100 F H 116 H 24 129/98 H 97 04/16/17 08:06 04/16/17 08:06 04/16/17 08:06 04/16/17 08:06 04/16/17 08:06 - Medications Medications: Current Medications Albuterol/Ipratropium (Duoneb 3 Mg/0.5 Mg (3 Ml) Ud) 3 ml IH [id number] [facility] Last Admin: 04/16/17 08:05 Dose: 3 ml Carbamazepine (Tegretol) 100 mg PO BID [facility] PRN Reason: Protocol Last Admin: 04/15/17 18:44 Dose: Not Given Folic Acid (Folic Acid) 1 mg PO DAILY [facility] Last Admin: 04/15/17 10:18 Dose: Not Given Gabapentin (Neurontin) 300 mg PO TID [facility] PRN Reason: Protocol Last Admin: 04/15/17 18:44 Dose: Not Given Heparin Sodium (Porcine) (Heparin) 5,000 units SC Q8 [facility] PRN Reason: Protocol Last Admin: 04/16/17 07:10 Dose: 5,000 units Hydromorphone HCl (Dilaudid) 0.5 mg IVP Q3 PRN PRN Reason: Pain, severe (8-10) Last Admin: 04/16/17 07:11 Dose: 0.5 mg Potassium Chloride 20 meq/ (Dextrose/Sodium Chloride) 1,010 mls @ 85 mls/hr IV .[id number] [facility] Last Admin: 04/15/17 18:41 Dose: 85 mls/hr Ceftriaxone Sodium (Rocephin 1 Gram Ivpb) 1 gm in 100 mls @ 100 mls/hr IVPB DAILY [facility] PRN Reason: Protocol Vancomycin HCl (Vancomycin 1gm) 1 gm in 250 mls @ 167 mls/hr IVPB DAILY [facility] PRN Reason: Protocol Metronidazole (Flagyl) 500 mg in 100 mls @ 100 mls/hr IVPB Q8 [facility] PRN Reason: Protocol Lidocaine (Lidoderm) 1 ea TD 2200 [facility] Last Admin: 04/15/17 23:45 Dose: Not Given Metoprolol Tartrate (Lopressor) 12.5 mg PO BID [facility] Last Admin: 04/15/17 18:44 Dose: Not Given Mirtazapine (Remeron) 15 mg PO HS [facility] Last Admin: 04/15/17 22:18 Dose: Not Given Nicotine (Nicoderm Cq) 1 patch TD DAILY [facility] Last Admin: 04/15/17 12:15 Dose: 1 patch Ondansetron HCl (Zofran Inj) 4 mg IVP Q4H PRN PRN Reason: Nausea/Vomiting Last Admin: 04/15/17 23:54 Dose: 4 mg Oxycodone/Acetaminophen (Percocet 10/325 Mg Tab) 1 tab PO Q4H PRN PRN Reason: Pain, moderate (4-7) Last Admin: 04/15/17 05:06 Dose: 1 tab Pantoprazole Sodium (Protonix Ec Tab) 40 mg PO ACB [facility] Last Admin: 04/15/17 08:16 Dose: Not Given Potassium Chloride (K-Dur 20 Meq Er Tab) 20 meq PO BRK [facility] Last Admin: 04/15/17 08:18 Dose: Not Given Ropinirole HCl (Requip) 1 mg PO AMHS [facility] Last Admin: 04/15/17 22:18 Dose: Not Given Tamsulosin HCl (Flomax) 0.4 mg PO DAILY [facility] Last Admin: 04/15/17 10:19 Dose: Not Given Venlafaxine HCl (Effexor) 37.5 mg PO DAILY [facility] Last Admin: 04/15/17 10:19 Dose: Not Given - Labs Labs: 04/16/17 03:30 04/16/17 03:30 PT 12.5 SECONDS (9.4-12.5) 04/09/17 15:35 INR 1.09 (0.93-1.08) H 04/09/17 15:35 APTT 32.7 Seconds (25.1-36.5) 04/09/17 15:35 - Constitutional Appears: Non-toxic, No Acute Distress - Head Exam Head Exam: ATRAUMATIC, NORMOCEPHALIC - Eye Exam Eye Exam: Normal appearance. absent: Conjunctival injection, Scleral icterus - ENT Exam ENT Exam: Mucous Membranes Moist, Normal Oropharynx - Respiratory Exam Respiratory Exam: NORMAL BREATHING PATTERN (on non-rebreather, tachypneic with dyspnea on RA). absent: Accessory Muscle Use - Cardiovascular Exam Cardiovascular Exam: Tachycardia, REGULAR RHYTHM - GI/Abdominal Exam GI & Abdominal Exam: Distended, Soft, Tenderness (LUQ). absent: Guarding - Extremities Exam Extremities Exam: Tenderness. absent: Calf Tenderness, Pedal Edema Additional comments: midline incision well approximated by antionette - Neurological Exam Neurological Exam: Alert, Awake, Oriented x3 - Psychiatric Exam Psychiatric exam: Agitated, Normal Affect - Skin Skin Exam: Dry, Intact, Normal Color, Warm Assessment and Plan - Assessment and Plan (Free Text) Assessment: 61 y/o male w/ SMA syndrome s/p gastrojejunostomy POD6 04/15 AXR: no ileus, contrast in colon. 04/16 CXR: Acute multifocal infiltrates right greater than left. 04/16 CTA: No CT evidence for pulmonary embolism. Multifocal pulmonary infiltrates right greater than left. Small bilateral pleural effusions. Marked distention of the stomach and associated dilatation of a fluid-filled esophagus. Plan: -patient unable to tolerate po, ileus vs. obstruction -dulcolax suppository -Acute hypoxia--aspiration pneumonia vs atelectasis vs fluid overload -decrease fluid hydration with concern for fluid overload -PICC insertion in the AM with TPN initiation -NPO with ice chips and shaved ice until patient's obstruction is resolved -daily labs -IS use, Q4 duonebs and chest physiotherapy, continue high flow. -OOB -Advised patient we needed to insert an NGT but patient refused at this time -Patient was seen by ICU but elected to be DNI/DNR--paper work signed with witnesses. No ICU admission recommended by ICU attending Seen and examined with Dr. Toscano who agrees with this plan
[2017-04-16 08:52] LABS: ARTERIAL BLOOD GAS HCO3 29.5 mmol/L (21-28); ARTERIAL BLOOD GAS HEMOGLOBIN 10.2 g/dL (11.7-17.4); ARTERIAL BLOOD GAS O2 CAPACITY 14.1 mL/dl (16-24); ARTERIAL BLOOD GAS O2 CONTENT 13.4 ML/dl (15-23); ARTERIAL BLOOD GAS O2 SAT 94.8 % (95-98); ARTERIAL BLOOD GAS PCO2 33 mm/Hg (35-45); ARTERIAL BLOOD GAS PH 7.56 (7.35-7.45); ARTERIAL BLOOD GAS TCO2 30.5 mmol.L (22-28)
[2017-04-16] MEDS ORDERED: Iodixanol 320 MG/ML 100 ML BOTTLE IV ONE (09:33)
--- NOTE | 2017-04-16 09:42 | CP.PCM.PN ---
<Noreen Winkler - Last Filed: 04/16/17 12:34> Subjective - Date & Time of Evaluation Date of Evaluation: 04/16/17 Time of Evaluation: 09:35 - Subjective Subjective: GI Fellow PGY4 Progress Note Pt seen and evaluated at bedside, pt reports abdominal pain on LLQ with associated nausea and vomiting. Per nursing, pt was not able to tolerate clear liquid diet for 2 days. No fevers, chills no WBC. Abdominal xray neg for obstruction. ROS: A 12pt ROS was negative except as above. Objective - Vital Signs/Intake and Output Vital Signs (last 24 hours): Temp Pulse Resp BP Pulse Ox 100 F H 116 H 24 129/98 H 97 04/16/17 08:06 04/16/17 08:06 04/16/17 08:06 04/16/17 08:06 04/16/17 08:06 - Medications Medications: Current Medications Albuterol/Ipratropium (Duoneb 3 Mg/0.5 Mg (3 Ml) Ud) 3 ml IH [id number] [facility] Last Admin: 04/16/17 08:05 Dose: 3 ml Carbamazepine (Tegretol) 100 mg PO BID [facility] PRN Reason: Protocol Last Admin: 04/15/17 18:44 Dose: Not Given Folic Acid (Folic Acid) 1 mg PO DAILY [facility] Last Admin: 04/15/17 10:18 Dose: Not Given Gabapentin (Neurontin) 300 mg PO TID [facility] PRN Reason: Protocol Last Admin: 04/15/17 18:44 Dose: Not Given Heparin Sodium (Porcine) (Heparin) 5,000 units SC Q8 [facility] PRN Reason: Protocol Last Admin: 04/16/17 07:10 Dose: 5,000 units Hydromorphone HCl (Dilaudid) 0.5 mg IVP Q3 PRN PRN Reason: Pain, severe (8-10) Last Admin: 04/16/17 07:11 Dose: 0.5 mg Potassium Chloride 20 meq/ (Dextrose/Sodium Chloride) 1,010 mls @ 85 mls/hr IV .[id number] [facility] Last Admin: 04/15/17 18:41 Dose: 85 mls/hr Metronidazole (Flagyl) 500 mg in 100 mls @ 100 mls/hr IVPB Q8 [facility] PRN Reason: Protocol Lidocaine (Lidoderm) 1 ea TD 2200 [facility] Last Admin: 04/15/17 23:45 Dose: Not Given Metoprolol Tartrate (Lopressor) 12.5 mg PO BID [facility] Last Admin: 04/15/17 18:44 Dose: Not Given Mirtazapine (Remeron) 15 mg PO HS [facility] Last Admin: 04/15/17 22:18 Dose: Not Given Nicotine (Nicoderm Cq) 1 patch TD DAILY [facility] Last Admin: 04/15/17 12:15 Dose: 1 patch Ondansetron HCl (Zofran Inj) 4 mg IVP Q4H PRN PRN Reason: Nausea/Vomiting Last Admin: 04/15/17 23:54 Dose: 4 mg Oxycodone/Acetaminophen (Percocet 10/325 Mg Tab) 1 tab PO Q4H PRN PRN Reason: Pain, moderate (4-7) Last Admin: 04/15/17 05:06 Dose: 1 tab Pantoprazole Sodium (Protonix Ec Tab) 40 mg PO ACB [facility] Last Admin: 04/15/17 08:16 Dose: Not Given Potassium Chloride (K-Dur 20 Meq Er Tab) 20 meq PO BRK [facility] Last Admin: 04/15/17 08:18 Dose: Not Given Ropinirole HCl (Requip) 1 mg PO AMHS [facility] Last Admin: 04/15/17 22:18 Dose: Not Given Tamsulosin HCl (Flomax) 0.4 mg PO DAILY [facility] Last Admin: 04/15/17 10:19 Dose: Not Given Venlafaxine HCl (Effexor) 37.5 mg PO DAILY [facility] Last Admin: 04/15/17 10:19 Dose: Not Given - Labs Labs: 04/16/17 03:30 04/16/17 03:30 PT 12.5 SECONDS (9.4-12.5) 04/09/17 15:35 INR 1.09 (0.93-1.08) H 04/09/17 15:35 APTT 32.7 Seconds (25.1-36.5) 04/09/17 15:35 - Constitutional Appears: Non-toxic, No Acute Distress, Cachectic, Chronically Ill - Eye Exam Eye Exam: EOMI, Normal appearance - ENT Exam ENT Exam: Mucous Membranes Moist - Neck Exam Neck Exam: Full ROM, Normal Inspection - Respiratory Exam Respiratory Exam: Clear to Ausculation Bilateral, NORMAL BREATHING PATTERN - GI/Abdominal Exam GI & Abdominal Exam: Distended, Firm, Normal Bowel Sounds. absent: Tenderness Additional comments: surgical scar/antionette - Extremities Exam Extremities Exam: Normal Inspection - Neurological Exam Neurological Exam: Alert, Awake, Oriented x3 - Psychiatric Exam Psychiatric exam: Normal Affect, Normal Mood - Skin Skin Exam: Dry, Intact, Normal Color, Warm Assessment and Plan - Assessment and Plan (Free Text) Assessment: Patient is a 61yo male with PMHx significant for CVA with left sided deficits, HTN, HLD who presented with abdominal pain, nausea and vomiting. Pt has history of 40-50lb weight loss since 2015 at time of his CVA. 1. SMA syndrome s/p open gastrojejunostomy POD#5 2. Abdominal pain, nausea, vomiting Plan: -Continue supportive care with anti-emetics -Symptoms may be secondary to opioids, recommend titrating off pain medication which is worsening N/V -Surgery following as pt is s/p gastrojejunostomy -Abd xray neg for obstruction -Diet as tolerated -Antibiotics per primary -Bowel regimen with miralax daily -Will continue to follow closely <Katrina Hernández MD - Last Filed: 04/16/17 16:52> Objective - Vital Signs/Intake and Output Vital Signs (last 24 hours): Temp Pulse Resp BP Pulse Ox 100 F H 116 H 24 130/98 H 97 04/16/17 08:06 18 11:15 04/16/17 08:06 04/16/17 11:15 04/16/17 08:06 - Medications Medications: Current Medications Albuterol/Ipratropium (Duoneb 3 Mg/0.5 Mg (3 Ml) Ud) 3 ml [id number] [facility] Last Admin: 04/16/17 15:28 Dose: 3 ml Carbamazepine (Tegretol) 100 mg PO BID [facility] PRN Reason: Protocol Last Admin: 04/16/17 11:17 Dose: Not Given Folic Acid (Folic Acid) 1 mg PO DAILY [facility] Last Admin: 04/16/17 11:15 Dose: Not Given Gabapentin (Neurontin) 300 mg PO TID [facility] PRN Reason: Protocol Last Admin: 04/16/17 14:17 Dose: Not Given Heparin Sodium (Porcine) (Heparin) 5,000 units SC Q8 [facility] PRN Reason: Protocol Last Admin: 04/16/17 14:24 Dose: 5,000 units Hydromorphone HCl (Dilaudid) 0.5 mg IVP Q3 PRN PRN Reason: Pain, severe (8-10) Last Admin: 04/16/17 13:26 Dose: 0.5 mg Metronidazole (Flagyl) 500 mg in 100 mls @ 100 mls/hr IVPB Q8 [facility] PRN Reason: Protocol Last Admin: 04/16/17 14:22 Dose: 100 mls/hr Meropenem/Sodium Chloride (Meropenem 1g/Ns 100ml Ivpb) 1 gm in 100 mls @ 100 mls/hr IVPB Q8 [facility] PRN Reason: Protocol Stop: 04/25/17 09:38 Last Admin: 04/16/17 14:17 Dose: Not Given Vancomycin HCl (Vancomycin 1gm) 1 gm in 250 mls @ 167 mls/hr IVPB Q12H [facility] PRN Reason: Protocol Stop: 04/25/17 09:46 Last Admin: 04/16/17 14:18 Dose: 167 mls/hr Potassium Chloride 20 meq/ (Dextrose/Sodium Chloride) 1,010 mls @ 75 mls/hr IV .[id number] [facility] Lidocaine (Lidoderm) 1 ea TD 2200 [facility] Last Admin: 04/15/17 23:45 Dose: Not Given Metoprolol Tartrate (Lopressor) 25 mg PO BID [facility] Mirtazapine (Remeron) 15 mg PO HS [facility] Last Admin: 04/15/17 22:18 Dose: Not Given Nicotine (Nicoderm Cq) 1 patch TD DAILY [facility] Last Admin: 04/16/17 11:21 Dose: 1 patch Ondansetron HCl (Zofran Inj) 4 mg IVP Q4H PRN PRN Reason: Nausea/Vomiting Last Admin: 04/15/17 23:54 Dose: 4 mg Oxycodone/Acetaminophen (Percocet 10/325 Mg Tab) 1 tab PO Q4H PRN PRN Reason: Pain, moderate (4-7) Last Admin: 04/15/17 05:06 Dose: 1 tab Pantoprazole Sodium (Protonix Inj) 40 mg IVP DAILY [facility] Polyethylene Glycol (Miralax) 17 gm PO DAILY [facility] Ropinirole HCl (Requip) 1 mg PO AMHS [facility] Last Admin: 04/16/17 11:17 Dose: Not Given Tamsulosin HCl (Flomax) 0.4 mg PO DAILY [facility] Last Admin: 04/16/17 11:15 Dose: Not Given Venlafaxine HCl (Effexor) 37.5 mg PO DAILY [facility] Last Admin: 04/16/17 11:16 Dose: Not Given - Labs Labs: 04/16/17 03:30 04/16/17 03:30 PT 12.5 SECONDS (9.4-12.5) 04/09/17 15:35 INR 1.09 (0.93-1.08) H 04/09/17 15:35 APTT 32.7 Seconds (25.1-36.5) 04/09/17 15:35 Attending/Attestation - Attestation I have personally seen and examined this patient.: Yes I have fully participated in the care of the patient.: Yes I have reviewed all pertinent clinical information, including history, physical exam and plan: Yes Notes (Text): 04/16/17 16:49 Patient seen at bedside this am. In a nutshell this is a 61 yo male with PMHx significant for CVA with left sided deficits, HTN, HLD who presented with abdominal pain, nausea and vomiting. Pt has history of 40-50lb weight loss since 2015 at time of his CVA. He was noted to have SMA syndrome s/p open gastrojejunostomy POD#5. He started to have abdominal pain, nausea and vomiting yesterday. He was discharged with SANITIZER pump , not sure till when he was on opioids. Supportive care with anti emetics. Last BM was yesterday. Obstructive series negative. Bowel regimen with miralax as needed. He is pending CTA chest for new SOB. Rest of plan as per surgical team. PE- soft abdomen, surgical clips in place without induration or erythema. Tympanic bowel sounds. He has wiring taped to his stomach from SANITIZER pump. recommend anesthesia consult for SANITIZER.
[2017-04-16] MEDS ORDERED: Vancomycin 1gm in NS 250ml 1 GM/250 ML BAG IVPB SCH (10:00)
[2017-04-16] MEDS ORDERED: cefTRIAXone 1 gm 1 GM/100 ML BAG IVPB SCH (10:00)
--- NOTE | 2017-04-16 10:35 | RAD ---
HISTORY: md request COMPARISON: 04/14/2017. FINDINGS: LUNGS: Progressive multifocal infiltrates/likely pulmonary edema. PLEURA: No significant pleural effusion identified, no pneumothorax apparent. CARDIOVASCULAR: No significant interval change compared to the prior examination(s). OSSEOUS STRUCTURES: No significant abnormalities. VISUALIZED UPPER ABDOMEN: Normal. OTHER FINDINGS: None. IMPRESSION: Acute multifocal infiltrates right greater than left.
[2017-04-16] MEDS ORDERED: Potassium Chloride 20 MEQ in Dextrose 5%/0.45% NS 1,000 ML IV SCH (10:48)
--- NOTE | 2017-04-16 11:00 | CT ---
PROCEDURE: CT Chest with contrast (Pulmonary Angiogram) HISTORY: r/o PE COMPARISON: None available. TECHNIQUE: Axial computed tomography images were obtained of the chest in the pulmonary arterial phase of enhancement. Coronal and sagittal reformatted images were created and reviewed. Maximum intensity projection (MIP) reconstructed images in the following planes: Sagittal and coronal projections. Intravenous contrast dose: 100 cc Visipaque 320 Mean Hounsfield unit values in the main pulmonary artery: 238.42 Radiation dose: Total exam DLP = 197.38 mGy-cm. This CT exam was performed using one or more of the following dose reduction techniques: Automated exposure control, adjustment of the mA and/or kV according to patient size, and/or use of iterative reconstruction technique. FINDINGS: PULMONARY ARTERIES: Unremarkable. No pulmonary embolism. AORTA: No acute findings. No thoracic aortic aneurysm. LUNGS: Multifocal infiltrates, lower lobe predilection. PLEURAL SPACES: Trace bilateral pleural effusions. HEART: No radiographic findings to suggest acute or significant cardiovascular disease. LYMPH NODES: No lymphadenopathy. BONES, CHEST WALL: Unremarkable. No fracture or destructive lesion OTHER FINDINGS: Markedly dilated although incompletely visualize stomach. Marked distention of a fluid-filled esophagus. These represent new findings compared to the prior CT of the abdomen pelvis performed 04/09/2017. IMPRESSION: 1. No CT evidence for pulmonary embolism. 2. Multifocal pulmonary infiltrates right greater than left. 3. Small bilateral pleural effusions. 4. Marked distention of the stomach and associated dilatation of a fluid-filled esophagus.
[2017-04-16] MEDS: Meropenem 1g/NS 100mL IVPB 1 GM/100 ML PIGGYBACK IVPB SCH ×2 (11:07→14:17)
[2017-04-16] MEDS: Potassium Chloride 20 mEq ER Tab PO SCH (11:15)
[2017-04-16] MEDS: Pantoprazole 40 mg EC Tab PO SCH (11:17)
[2017-04-16] MEDS: Vancomycin 1gm in NS 250ml 1 GM/250 ML BAG IVPB SCH (14:18)
[2017-04-16] MEDS: metroNIDAZOLE IV 500 mg/100 ml 500 MG/100 ML BAG IVPB SCH ×2 (14:22→23:09)
[2017-04-16 15:29] LABS: PH,URINE 5.5 (4.7-8.0); URINE APPEARANCE CLEAR (CLEAR); URINE BILIRUBIN NEGATIVE (NEGATIVE); URINE BLOOD MODERATE (NEGATIVE); URINE COLOR DARK YELLOW (YELLOW); URINE GLUCOSE (UA) NEGATIVE (NEGATIVE); URINE LEUKOCYTE ESTERASE NEGATIVE Leu/uL (NEGATIVE); URINE NITRATE NEGATIVE (NEGATIVE); URINE PROTEIN 30 mg/dL (<30 mg/dL); URINE UROBILINOGEN 0.2 E.U./dL (<1 E.U./dL)
[2017-04-16] MEDS ORDERED: Potassium Chloride 20 MEQ in Dextrose 5%/0.9% NS 1,000 ML IV SCH (16:30)
[2017-04-16 17:02] LABS: URINE EPITHELIAL CELLS 0 - 2 /hpf (0-5)
[2017-04-16 17:03] LABS: URINE BACTERIA MOD (NEG)
[2017-04-16] MEDS: POLYETHYLENE GLYCOL 3350 17 GM/Dose PACKET PO SCH (19:09)
--- NOTE | 2017-04-16 20:20 | PN ---
DATE: 04/16/2017 REASON FOR CONSULTATION AND FOLLOWUP: Preop evaluation, risk stratification, followup status post small bowel obstruction, status post gastrojejunostomy. OBJECTIVE: GENERAL: Not in apparent distress. VITAL SIGNS: Temperature afebrile, heart rate 116, blood pressure 130/98. HEENT: PERRLA, intact. NECK: Supple. No carotid bruit or thyromegaly. CHEST: Clear to auscultation. HEART: S1, S2 regular. ABDOMEN: Soft. EXTREMITIES: Clubbing and cyanosis negative. LABORATORY DATA: WBC 6.5, hemoglobin , hematocrit 30.2, platelet count 364. Chemistry shows sodium 140, potassium 3.9, chloride 98, carbon dioxide 30, anion gap of 13, BUN 22, creatinine 0.8. IMPRESSION: Status post gastrojejunostomy, status post small perforation of the bowel, bowel obstruction, history of cerebrovascular accident, anemia, history of superior mesenteric artery syndrome. RECOMMENDATIONS: Continue adequate analgesia. Continue IV fluid. We will continue to supplement electrolytes as needed. Overall, patient's condition is critical. Long-term prognosis guarded. We will increase metoprolol to 25 b.i.d. to prevent tachycardia. Thank you Dr. Lantigua for providing us the opportunity in taking care of the patient, Brandyn Henson. Further recommendations as per Surgery. Follow up electrolytes in the morning. Velvet Bey MD cc: Radha Lantigua MD
--- NOTE | 2017-04-16 20:33 | CP.PCM.PN ---
Subjective - Date & Time of Evaluation Date of Evaluation: 04/16/17 Time of Evaluation: 20:20 - Subjective Subjective: Patient seen and examined at bedside multiple times today, most recently at 1999. Patient is tachypneic, with eructation of the water he has been drinking and coughing. Patient is only satting 82-84% on 90% hiflow at 40LPM. Increasing hi flow FIO2 to 100% and 50LPM. Had multiple at length discussions with patient and with patient's son that it is imperative we insert the NGT to get rid of the excess fluid in his stomach. Told patient that if he refuses the NGT that he will keep vomiting and likely worsen this pneumonia and he may . Patient stated he understood my advice and the possibility serious repercussions but deferred the NGT. Instructed nurses to not give him any more water. Respiratory therapy was called to come adjust the hi flow settings. Objective - Vital Signs/Intake and Output Vital Signs (last 24 hours): Temp Pulse Resp BP Pulse Ox 98.4 F 127 H 24 114/83 95 04/16/17 16:00 04/16/17 19:09 04/16/17 16:00 04/16/17 19:09 04/16/17 16:00 - Medications Medications: Current Medications Albuterol/Ipratropium (Duoneb 3 Mg/0.5 Mg (3 Ml) Ud) 3 ml IH [id number] [facility] Last Admin: 04/16/17 18:23 Dose: 3 ml Carbamazepine (Tegretol) 100 mg PO BID [facility] PRN Reason: Protocol Last Admin: 04/16/17 19:10 Dose: Not Given Folic Acid (Folic Acid) 1 mg PO DAILY [facility] Last Admin: 04/16/17 11:15 Dose: Not Given Gabapentin (Neurontin) 300 mg PO TID [facility] PRN Reason: Protocol Last Admin: 04/16/17 19:09 Dose: Not Given Heparin Sodium (Porcine) (Heparin) 5,000 units SC Q8 [facility] PRN Reason: Protocol Last Admin: 04/16/17 14:24 Dose: 5,000 units Hydromorphone HCl (Dilaudid) 0.5 mg IVP Q3 PRN PRN Reason: Pain, severe (8-10) Last Admin: 04/16/17 16:20 Dose: 0.5 mg Metronidazole (Flagyl) 500 mg in 100 mls @ 100 mls/hr IVPB Q8 [facility] PRN Reason: Protocol Last Admin: 04/16/17 14:22 Dose: 100 mls/hr Meropenem/Sodium Chloride (Meropenem 1g/Ns 100ml Ivpb) 1 gm in 100 mls @ 100 mls/hr IVPB Q8 [facility] PRN Reason: Protocol Stop: 04/25/17 09:38 Last Admin: 04/16/17 14:17 Dose: Not Given Vancomycin HCl (Vancomycin 1gm) 1 gm in 250 mls @ 167 mls/hr IVPB Q12H [facility] PRN Reason: Protocol Stop: 04/25/17 09:46 Last Admin: 04/16/17 14:18 Dose: 167 mls/hr Potassium Chloride 20 meq/ (Dextrose/Sodium Chloride) 1,010 mls @ 75 mls/hr IV .[id number] [facility] Last Admin: 04/16/17 19:10 Dose: 75 mls/hr Lidocaine (Lidoderm) 1 ea TD 2200 [facility] Last Admin: 04/15/17 23:45 Dose: Not Given Metoprolol Tartrate (Lopressor) 25 mg PO BID [facility] Last Admin: 04/16/17 19:09 Dose: 25 mg Mirtazapine (Remeron) 15 mg PO HS [facility] Last Admin: 04/15/17 22:18 Dose: Not Given Nicotine (Nicoderm Cq) 1 patch TD DAILY [facility] Last Admin: 04/16/17 11:21 Dose: 1 patch Ondansetron HCl (Zofran Inj) 4 mg IVP Q4H PRN PRN Reason: Nausea/Vomiting Last Admin: 04/15/17 23:54 Dose: 4 mg Oxycodone/Acetaminophen (Percocet 10/325 Mg Tab) 1 tab PO Q4H PRN PRN Reason: Pain, moderate (4-7) Last Admin: 04/15/17 05:06 Dose: 1 tab Pantoprazole Sodium (Protonix Inj) 40 mg IVP DAILY [facility] Polyethylene Glycol (Miralax) 17 gm PO DAILY [facility] Last Admin: 04/16/17 19:09 Dose: 17 gm Ropinirole HCl (Requip) 1 mg PO AMHS [facility] Last Admin: 04/16/17 11:17 Dose: Not Given Tamsulosin HCl (Flomax) 0.4 mg PO DAILY [facility] Last Admin: 04/16/17 11:15 Dose: Not Given Venlafaxine HCl (Effexor) 37.5 mg PO DAILY [facility] Last Admin: 04/16/17 11:16 Dose: Not Given - Labs Labs: 04/16/17 03:30 04/16/17 03:30 PT 12.5 SECONDS (9.4-12.5) 04/09/17 15:35 INR 1.09 (0.93-1.08) H 04/09/17 15:35 APTT 32.7 Seconds (25.1-36.5) 04/09/17 15:35 - Constitutional Appears: In Acute Distress, Older Than Stated Age - Head Exam Head Exam: ATRAUMATIC, NORMOCEPHALIC - Eye Exam Eye Exam: Normal appearance. absent: Conjunctival injection, Scleral icterus - ENT Exam ENT Exam: Mucous Membranes Dry - Respiratory Exam Respiratory Exam: Accessory Muscle Use, Rales (R>L), Respiratory Distress - Cardiovascular Exam Cardiovascular Exam: Tachycardia, REGULAR RHYTHM - GI/Abdominal Exam GI & Abdominal Exam: Distended (mild distention lower abdomen), Soft, Tenderness (mild BL Lower quadrant pain) - Extremities Exam Extremities Exam: absent: Calf Tenderness, Pedal Edema - Neurological Exam Neurological Exam: Alert, Awake, Oriented x3 - Psychiatric Exam Psychiatric exam: Agitated, Normal Affect - Skin Skin Exam: Dry, Intact, Normal Color, Warm Assessment and Plan - Assessment and Plan (Free Text) Assessment: 61 y/o male w/ SMA syndrome s/p gastrojejunostomy POD6 Worsening respiratory distress Plan: Strict NPO IVF@75cc/h Patient refusing NGT despite multiple strong recommendations Continue hiflow at increased settings Continue to monitor UOP: approximately 50cc/hr Patient DNI/DNR Continue to monitor for bowel function--no BM after dulcolax suppository this afternoon Will continue frequent exams Ml Granados, PGY2
[2017-04-16] MEDS: Lidocaine 5% Patch TD SCH (23:11)
--- NOTE | 2017-04-17 00:17 | PN ---
DATE: SUBJECTIVE: The patient is a 61-year-old male. The patient is seen and examined on the bedside, looking comfortable, but last night he had episodes of vomiting as per nursing staff, and the patient was having generalized abdominal pain now. According to the patient, pain is localized in the left lower quadrant. Surgical Team notified. The patient cannot tolerate liquid diet. Swallowing evaluation ordered. No fever, no chills. The patient is made DNR and DNI. PHYSICAL EXAMINATION: VITAL SIGNS: Temperature 100.0, respiratory rate 24, pulse 116, blood pressure 129/98, pulse oximetry 97. HEENT: Head: Normocephalic, atraumatic. Eyes: PERRLA. Extraocular muscles intact. Conjunctivae clear. Nose patent. NECK: Supple. No carotid bruits, JVD, or thyromegaly. CHEST: Bilaterally symmetrical. HEART: S1 and S2 positive. LUNGS: Clear to auscultation. ABDOMEN: Soft, but tender in all four quadrants. EXTREMITIES: No edema, no cyanosis. NEUROLOGICAL: The patient is awake, alert, follows simple commands. MEDICATIONS: DuoNeb, Tegretol, folic acid, Neurontin, heparin, Dilaudid, potassium, Flagyl, Lidoderm, metoprolol, Remeron, Nicoderm patch, Zofran, oxycodone, Requip, Flomax. LABORATORY DATA: White blood cell is 6.5, hemoglobin 9.5, hematocrit 30.2, platelets 364. Sodium 140, potassium 3.9, BUN 22, creatinine 0.8, glucose 151. ASSESSMENT AND PLAN: Mr. Brandyn Wang is a 61-year-old male with anemia, renal insufficiency, hyperglycemia, history of cerebrovascular accident with left-sided deficit, hypertension, hypercholesterolemia, history of 40 to 50 pound weight loss since 2015 at the time of his cerebrovascular accident, superior mesenteric artery syndrome, status post gastrojejunostomy postoperative day five, constant abdominal pain, nausea, vomiting. Patient's x-ray done showed no obstruction. Antibiotics as per primary, Infectious Disease. The patient is passing gas and did bowel movement yesterday. Obstructive series negative, still having fever. ; results are pending. CAT scan of the chest done, showed multifocal pulmonary infiltrates, right greater than the left; small bilateral pleural effusion; marked distension of the stomach and associated dilatation of the fluid-filled esophagus. Infectious Disease consult called, rule out sepsis. The patient was desaturated last night. Manager Title Team called. They evaluated the patient, put on nonrebreather, talked to the patient length of time, made the patient himself do not resuscitate and do not intubate. Surgery spoke to the patient's family. Daliresp was given. need pic line , in a.m. for total parenteral nutrition initiation. Now the patient is n.p.o. The patient refused nasogastric tube. We will follow up. Radha Lantigua MD MTDD
[2017-04-17] MEDS ORDERED: Potassium Chloride 20 MEQ in Dextrose 5%/0.9% NS 1,000 ML IV SCH (00:29)
[2017-04-17] MEDS: Albuterol-Ipratrop 3 mg / 0.5 (3 ml) UD IH SCH ×6 (00:34→21:17)
[2017-04-17] MEDS: Meropenem 1g/NS 100mL IVPB 1 GM/100 ML PIGGYBACK IVPB SCH ×4 (00:37→21:46)
[2017-04-17] MEDS: Vancomycin 1gm in NS 250ml 1 GM/250 ML BAG IVPB SCH ×3 (01:55→21:48)
--- NOTE | 2017-04-17 03:49 | PN ---
DATE: PULMONARY PROGRESS NOTE REFERRING PHYSICIAN: Radha Lantigua MD. SUBJECTIVE: He is lying in the bed, at 45 degrees. Had a suppository given, finally having bowel movement. Became respiratory distress requiring high-flow oxygen. Has some abdominal pain, abdominal distention. No leg swelling. PHYSICAL EXAMINATION GENERAL: In no acute distress. VITAL SIGNS: Temperature is 100, heart rate is 120, respiratory rate is 24, blood pressure 114/83, pulse ox 95% on high-flow nasal cannula. HEENT: Moist mucous membrane. NECK: Supple. No JVD. LUNGS: Decreased breath sounds at the bases. There are some crackles. HEART: S1 and S2. ABDOMEN: Distended. Positive bowel sound. EXTREMITIES: There is no edema. NEUROLOGIC: Awake and alert, follows simple command. MEDICATIONS: He is on Dilaudid 0.5 mg q. 3 hours p.r.n., DuoNeb q. 4 hours, Effexor 37.5 daily which was not given today, Flagyl 500 mg q. 8 hours, Flomax is on hold, folic acid is on hold, heparin 5000 subcutaneously q. 8 hours, lidocaine is on hold, metoprolol tartrate 25 mg twice a day, meropenem 1 g IV q. 8 hours, MiraLax 17 g daily started, gabapentin on hold, Nicoderm patch daily, Percocet 10/325 one tab q. 4 hours p.r.n., IV fluids with potassium, Protonix 40 mg IV daily, Remeron 15 mg at bedtime, Requip 1 mg Tegretol 100 mg twice a day, vancomycin 1 g q. 12 hours, Zofran p.r.n. basis. LABORATORY DATA: Hemoglobin 9.5, hematocrit 30.5, WBC 6.5, platelets is 364. Blood gases done today showed pH 7.56, pCO2 of 33, O2 of 59, that was on 60% oxygen. Sodium 140, potassium 3.9, chloride 98, bicarbonate 30, BUN 22, creatinine 0.8, glucose 151, calcium 9.3, magnesium 2.3. ProBNP 293. Procalcitonin is 0.77. He has a CAT scan of the chest done today, which shows no CT evidence of pulmonary embolism, multifocal pulmonary infiltrate; right greater than the left; small bilateral pleural effusion, marked distention of the stomach and associated dilatation of a fluid filled esophagus, IMPRESSION AND PLAN: Probably aspiration pneumonia, has superior mesenteric artery syndrome, status post gastrojejunostomy, chronic obstructive lung disease, history of restless leg syndrome (?). Presently seems like having gastric obstruction or small bowel obstruction (?), having recurrent vomiting, probably aspirated, on antibiotics. Had one bowel movement after enema. Keep head elevated at 45 degrees. Continue antibiotics, nebulizer treatment, gastric prophylaxis, deep vein thrombosis prophylaxis. Follow up labs in the morning. GI and surgical followup. Velvet Castillo MD
[2017-04-17 03:54] LABS: ARTERIAL BLOOD GAS HCO3 28.9 mmol/L (21-28); ARTERIAL BLOOD GAS O2 SAT 96.6 % (95-98); ARTERIAL BLOOD GAS PCO2 33 mm/Hg (35-45); ARTERIAL BLOOD GAS PH 7.55 (7.35-7.45); ARTERIAL BLOOD GAS TCO2 29.9 mmol.L (22-28)
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
--- NOTE | 2017-04-17 04:34 | CP.PCM.PN ---
Subjective - Date & Time of Evaluation Date of Evaluation: 04/17/17 Time of Evaluation: 03:30 - Subjective Subjective: Was called by nursing for acute altered mental status and pulling off his hi flow oxygen with SPO2 saturation of 72%. Came to evaluate the patient. Patient was confused, oriented only to person--not place, time, or purpose. Patient insisted on getting out of bed. Patient has had multiple episodes of eructation/ emesis of clear liquid with brown-green tinged sediment throughout the night but refusing NGT. Repositioned the hiflow and saturation was 90% on 90% FIO2 and 50LPM. Glucose was 123. Temperature 100.4, heart rate 116, BP stable. Turned the hiflow up to 60LPM and ordered a stat ABG, CXR, CBC, CMP, Mag, phos, blood cultures, and ICU consult was called. Contacted Dr. Lantigua who requested an ICU consult. Spoke with Dr. Ro the resident armor reconnaissance vehicle crewman overnight at [address] Mcclendon approximately 4PM while he was evaluating the patient. Decision was made to bring patient to the ICU for more extensive monitoring and BIPAP. Unable to intubate due to DNR/DNI signed this AM. Patient became re-oriented after increasing bipap FIO2 to 100% and agreed to the NGT. NGT was placed with some emesis during insertion and had an immediate return of 3L of dark green/ brown fluid. Objective - Vital Signs/Intake and Output Vital Signs (last 24 hours): Temp Pulse Resp BP Pulse Ox 98.4 F 127 H 33 H 114/83 95 04/16/17 16:00 04/16/17 19:09 04/17/17 04:22 04/16/17 19:09 04/16/17 16:00 Intake and Output: 04/16/17 04/17/17 18:59 06:59 Intake Total 240 Output Total 250 Balance -10 - Medications Medications: Current Medications Albuterol/Ipratropium (Duoneb 3 Mg/0.5 Mg (3 Ml) Ud) 3 ml IH [id number] [facility] Last Admin: 04/17/17 04:03 Dose: 3 ml Carbamazepine (Tegretol) 100 mg PO BID [facility] PRN Reason: Protocol Last Admin: 04/16/17 19:10 Dose: Not Given Folic Acid (Folic Acid) 1 mg PO DAILY [facility] Last Admin: 04/16/17 11:15 Dose: Not Given Gabapentin (Neurontin) 300 mg PO TID [facility] PRN Reason: Protocol Last Admin: 04/16/17 19:09 Dose: Not Given Heparin Sodium (Porcine) (Heparin) 5,000 units SC Q8 [facility] PRN Reason: Protocol Last Admin: 04/16/17 23:10 Dose: 5,000 units Hydromorphone HCl (Dilaudid) 0.5 mg IVP Q3 PRN PRN Reason: Pain, severe (8-10) Last Admin: 04/16/17 23:15 Dose: 0.5 mg Metronidazole (Flagyl) 500 mg in 100 mls @ 100 mls/hr IVPB Q8 [facility] PRN Reason: Protocol Last Admin: 04/16/17 23:09 Dose: 100 mls/hr Meropenem/Sodium Chloride (Meropenem 1g/Ns 100ml Ivpb) 1 gm in 100 mls @ 100 mls/hr IVPB Q8 [facility] PRN Reason: Protocol Stop: 04/25/17 09:38 Last Admin: 04/17/17 00:37 Dose: 100 mls/hr Vancomycin HCl (Vancomycin 1gm) 1 gm in 250 mls @ 167 mls/hr IVPB Q12H [facility] PRN Reason: Protocol Stop: 04/25/17 09:46 Last Admin: 04/17/17 01:55 Dose: 167 mls/hr Potassium Chloride 20 meq/ (Dextrose/Sodium Chloride) 1,010 mls @ 95 mls/hr IV .[id number] [facility] Lidocaine (Lidoderm) 1 ea TD 2200 [facility] Last Admin: 04/16/17 23:11 Dose: Not Given Metoprolol Tartrate (Lopressor) 25 mg PO BID [facility] Last Admin: 04/16/17 19:09 Dose: 25 mg Mirtazapine (Remeron) 15 mg PO HS [facility] Last Admin: 04/16/17 23:11 Dose: Not Given Nicotine (Nicoderm Cq) 1 patch TD DAILY [facility] Last Admin: 04/16/17 11:21 Dose: 1 patch Ondansetron HCl (Zofran Inj) 4 mg IVP Q4H PRN PRN Reason: Nausea/Vomiting Last Admin: 04/16/17 20:15 Dose: 4 mg Oxycodone/Acetaminophen (Percocet 10/325 Mg Tab) 1 tab PO Q4H PRN PRN Reason: Pain, moderate (4-7) Last Admin: 04/15/17 05:06 Dose: 1 tab Pantoprazole Sodium (Protonix Inj) 40 mg IVP DAILY [facility] Polyethylene Glycol (Miralax) 17 gm PO DAILY [facility] Last Admin: 04/16/17 19:09 Dose: 17 gm Ropinirole HCl (Requip) 1 mg PO AMHS [facility] Last Admin: 04/16/17 23:11 Dose: Not Given Tamsulosin HCl (Flomax) 0.4 mg PO DAILY [facility] Last Admin: 04/16/17 11:15 Dose: Not Given Venlafaxine HCl (Effexor) 37.5 mg PO DAILY [facility] Last Admin: 04/16/17 11:16 Dose: Not Given - Labs Labs: 04/16/17 03:30 04/16/17 03:30 PT 12.5 SECONDS (9.4-12.5) 04/09/17 15:35 INR 1.09 (0.93-1.08) H 04/09/17 15:35 APTT 32.7 Seconds (25.1-36.5) 04/09/17 15:35 - Constitutional Appears: In Acute Distress, Older Than Stated Age, Confused, Cachectic, Chronically Ill - Head Exam Head Exam: ATRAUMATIC, NORMOCEPHALIC - Eye Exam Eye Exam: Normal appearance. absent: Conjunctival injection, Scleral icterus - ENT Exam ENT Exam: Mucous Membranes Dry, Normal Oropharynx - Respiratory Exam Respiratory Exam: Accessory Muscle Use, Rales, Respiratory Distress Additional comments: tachypnea - GI/Abdominal Exam GI & Abdominal Exam: Distended (moderately), Soft, Tenderness (mild) Additional comments: midline incision well approximated with antionette - Extremities Exam Extremities Exam: absent: Calf Tenderness, Pedal Edema, Tenderness - Neurological Exam Neurological Exam: Alert, Awake, Oriented x3 (confused then becoming oriented x3 ) - Psychiatric Exam Psychiatric exam: Agitated - Skin Skin Exam: Diaphoretic, Normal Color, Warm Assessment and Plan - Assessment and Plan (Free Text) Assessment: 61 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 Urine output should be >30cc's/hr NGT to low intermittent suction Continue hiflow at increased settings Patient DNI/DNR Transfer to ICU for BIPAP and close monitoring Continue to monitor for bowel function. Daily dulcolax suppository Duonebs and chest physiotherapy Q4, agressive suctioning. Will continue frequent exams Ml Granados, PGY2
[2017-04-17 04:38] LABS: EOS % 0.2 % (1.5-5.0); GRAN % 75.2 % (50.0-68.0); LYMPH # 0.8 (1.2-3.4); LYMPH % 11.3 % (22.0-35.0); MEAN CELL VOLUME 89.2 fl (80.0-105.0); MEAN CORPUSCULAR HEMOGLOBIN 28.7 pg (25.0-35.0); MEAN CORPUSCULAR HGB CONC 32.2 g/dl (31.0-37.0); MEAN PLATELET VOLUME 9.1 fl (7.0-11.0); MONO # 0.9 (0.1-0.6); MONO % 13.3 % (1.0-6.0); RBC 2.68 10^6/uL (3.5-6.1); RED CELL DISTRIBUTION WIDTH 18.5 % (11.5-14.5); WHITE BLOOD COUNT 6.6 10^3/ul (4.5-11.0)
[2017-04-17 04:40] LABS: HEMOGLOBIN 7.7 g/dL (14.0-18.0)
[2017-04-17 04:42] LABS: ALBUMIN 1.4 g/dL (3.0-4.8); ALT/SGPT 19 U/L (7-56); AST/SGOT 7 U/L (17-59); BLOOD UREA NITROGEN 16 mg/dL (7-21); CALCIUM 4.8 mg/dL (8.4-10.5); GFR AFRICAN-AMERICAN > 60; GFR NON-AFRICAN AMERICAN > 60; HDL CHOLESTEROL 16 mg/dL (29-60); LDL CHOLESTEROL < 30 mg/dL (0-129); MAGNESIUM 1.4 mg/dL (1.7-2.2)
[2017-04-17] MEDS ORDERED: Magnesium Sulfate 2 GM in Sodium Chloride 0.9% 100 ML IVPB ONE (04:46)
[2017-04-17] MEDS ORDERED: Potassium Phosphate 15 MMOLE in Dextrose 5% In Water 250 ML IVPB ONE (04:46)
[2017-04-17] MEDS: HYDROmorphone 0.5 mg/0.5 ml ISec IVP PRN ×4 (05:09→20:17)
[2017-04-17] MEDS: metroNIDAZOLE IV 500 mg/100 ml 500 MG/100 ML BAG IVPB SCH ×3 (05:09→21:36)
[2017-04-17 05:38] LABS: ALBUMIN 2.7 g/dL (3.0-4.8); ALT/SGPT 15 U/L (7-56); AST/SGOT 18 U/L (17-59); BLOOD UREA NITROGEN 26 mg/dL (7-21); CALCIUM 8.7 mg/dL (8.4-10.5); GFR AFRICAN-AMERICAN > 60; GFR NON-AFRICAN AMERICAN > 60; MAGNESIUM 2.2 mg/dL (1.7-2.2)
--- NOTE | 2017-04-17 07:41 | CP.CCUPN ---
<Astrid Little - Last Filed: 04/17/17 13:39> CCU Subjective - Physician Review Subjective (Free Text): 04/17/17 10:39 Patient is arousable, opens his eyes spontaneously. Denies pain. NGT in place producing Afebrile. Critical Care Time Spent (in minutes): 45 CCU Objective - Vital Signs / Intake & Output Vital Signs (Last 4 hours): Vital Signs Resp 04/17/17 04:22 33 H Intake and Output (Last 8hrs): Intake & Output 04/16/17 04/17/17 04/17/17 22:59 06:59 14:59 Intake Total 240 Output Total 250 Balance -10 Intake: Oral 240 Output: Urine 250 Urine, Voided 250 Other: # Bowel Movements 0 - Physical Exam Head: Positive for: Atraumatic, Normocephalic, Other (bi-temporal wasting noted) Pupils: Positive for: PERRL Extroacular Muscles: Positive for: EOMI Conjunctiva: Positive for: Normal Ears: Positive for: Normal Mouth: Positive for: Dry, Other (poor dentitions, dry oral mucosa, uvula/tongue are midline, no exudate/lesions) Pharnyx: Positive for: Normal Nose (External): Positive for: Atraumatic Nose (Internal): Positive for: Normal Inspection, Other (ngt) Neck: Positive for: Normal Range of Motion, Trachea Midline. Negative for: MIDLINE TENDERNESS Respiratory/Chest: Positive for: Clear to Auscultation, Good Air Exchange, Other (CTA b/l, no w/r/r, no accessory muscle use noted, no tachypenia). Negative for: Respiratory Distress, Accessory Muscle Use Cardiovascular: Positive for: Regular Rate and Rhythm, Normal S1, S2. Negative for: Murmurs Abdomen: Positive for: Tenderness, Normal Bowel Sounds, Other (+ mild mid abd tenderness, no hurd's sign, no mcburney's point tenderness, no rebound/ guarding/rigidity). Negative for: Distention, Peritoneal Signs Back: Positive for: Normal Inspection. Negative for: CVA Tenderness Upper Extremity: Positive for: Normal Inspection, Normal ROM, NORMAL PULSES, Neurovascularly Intact, Other (decr strength to left arm (prior CVA)). Negative for: Cyanosis, Edema Lower Extremity: Positive for: Normal Inspection, NORMAL PULSES, Normal ROM, Neurovascularly Intact, Capillary Refill < 2 s, Other (decr ROM/strength 4+/5 left leg; + intermittent spasms noted to b/l lower ext; neurovasc intact b/l). Negative for: Edema Neurological: Positive for: GCS=15, CN II-XII Intact, Speech Normal Skin: Positive for: Warm, Dry, Normal Color, Other (cap refill~1 sec, no ulcerations, no petechiae). Negative for: Rashes Psychiatric: Positive for: Alert, Oriented x 3, Normal Insight, Normal Concentration - Medications Active Medications: Active Medications Generic Name Dose Route Start Last Admin Trade Name Freq PRN Reason Stop Dose Admin Albuterol/Ipratropium 3 ml 04/16/17 15:30 04/17/17 04:03 Duoneb 3 Mg/0.5 Mg (3 Ml) Ud IH 3 ml [id number] DOMONIQUE Administration Carbamazepine 100 mg 04/02/17 23:00 04/16/17 19:10 Tegretol PO Not Given BID DOMONIQUE Protocol Folic Acid 1 mg 04/03/17 10:00 04/16/17 11:15 Folic Acid PO Not Given DAILY DOMONIQUE Gabapentin 300 mg 04/03/17 10:00 04/16/17 19:09 Neurontin PO Not Given TID DOMONIQUE Protocol Heparin Sodium (Porcine) 5,000 units 04/11/17 14:00 04/17/17 05:09 Heparin SC 5,000 units Q8 DOMONIQUE Administration Protocol Hydromorphone HCl 0.5 mg 04/15/17 22:15 04/17/17 05:09 Dilaudid IVP 0.5 mg Q3 PRN Administration Pain, severe (8-10) Metronidazole 500 mg in 100 mls @ 100 mls/hr 04/16/17 14:00 04/16/17 23:09 Flagyl IVPB 100 mls/hr Q8 DOMONIQUE Administration Protocol Meropenem/Sodium Chloride 1 gm in 100 mls @ 100 mls/hr 04/16/17 09:37 00:37 Meropenem 1g/Ns 100ml Ivpb IVPB 04/25/17 09:38 100 mls/hr Q8 DOMONIQUE Administration Protocol Vancomycin HCl 1 gm in 250 mls @ 167 mls/hr 04/16/17 09:45 04/17/17 01:55 Vancomycin 1gm IVPB 04/25/17 09:46 167 mls/hr Q12H DOMONIQUE Administration Protocol Potassium Chloride 20 meq/ 1,010 mls @ 95 mls/hr 04/17/17 00:29 Dextrose/Sodium Chloride IV .[id number] DOMONIQUE Potassium Phosphate 15 mmole/ 255 mls @ 42.5 mls/hr 04/17/17 04:46 Dextrose IVPB 04/17/17 10:45 ONCE ONE Chromium/Copper/Manganese/Zinc 1,011 mls @ 42.125 mls/hr 04/17/17 18:00 1 ml/ Multivitamins/Vitamin C IV 04/18/17 17:59 10 ml/ Amino Acids/ .Q24H ONE Electrolytes/Dextrose Fat Emulsion Intravenous 250 mls @ 21 mls/hr 04/17/17 18:00 Intralipid 20% IV [id number] DOMONIQUE Lidocaine 1 ea 04/05/17 22:00 04/16/17 23:11 Lidoderm TD Not Given 2200 [facility] Metoprolol Tartrate 25 mg 04/16/17 18:00 04/16/17 19:09 Lopressor PO 25 mg BID DOMONIQUE Administration Mirtazapine 15 mg 04/02/17 23:00 04/16/17 23:11 Remeron PO Not Given HS [facility] Nicotine 1 patch 04/03/17 15:30 04/16/17 11:21 Nicoderm Cq TD 1 patch DAILY [facility] Administration Ondansetron HCl 4 mg 04/15/17 12:07 04/16/17 20:15 Zofran Inj IVP 4 mg Q4H PRN Administration Nausea/Vomiting Oxycodone/Acetaminophen 1 tab 04/12/17 12:33 04/15/17 05:06 Percocet 10/325 Mg Tab PO 1 tab Q4H PRN Administration Pain, moderate (4-7) Pantoprazole Sodium 40 mg 04/17/17 10:00 Protonix Inj IVP DAILY [facility] Polyethylene Glycol 17 gm 04/16/17 12:45 04/16/17 19:09 Miralax PO 17 gm DAILY DOMONIQUE Administration Ropinirole HCl 1 mg 04/08/17 22:00 04/16/17 23:11 Requip PO Not Given [facility] DOMONIQUE Tamsulosin HCl 0.4 mg 04/03/17 10:00 04/16/17 11:15 Flomax PO Not Given DAILY DOMONIQUE Venlafaxine HCl 37.5 mg 04/03/17 10:00 04/16/17 11:16 Effexor PO Not Given DAILY DOMONIQEU - Patient Studies Lab Studies: Microbiology Studies 04/16/17 01:55 Blood Culture - Preliminary Blood NO GROWTH AFTER 24 HOURS 04/16/17 01:20 Blood Culture - Preliminary Blood NO GROWTH AFTER 24 HOURS Lab Studies 04/17/17 04/17/17 04/17/17 Range/Units 04:30 04:30 03:45 WBC 6.6 (4.5-11.0) 10^3/ul RBC 2.68 L (3.5-6.1) 10^6/uL Hgb 7.7 L (14.0-18.0) g/dL Hct 23.9 L (42.0-52.0) % MCV 89.2 (80.0-105.0) fl MCH 28.7 (25.0-35.0) pg MCHC 32.2 (31.0-37.0) g/dl RDW 18.5 H (11.5-14.5) % Plt Count 326 (120.0-450.0) 10^3/uL MPV 9.1 (7.0-11.0) fl Gran % 75.2 H (50.0-68.0) % Lymph % (Auto) 11.3 L (22.0-35.0) % Archer % (Auto) 13.3 H (1.0-6.0) % Eos % (Auto) 0.2 L (1.5-5.0) % Baso % (Auto) 0.0 (0.0-3.0) % Gran # 5.00 (1.4-6.5) Lymph # (Auto) 0.8 L (1.2-3.4) Archer # (Auto) 0.9 H (0.1-0.6) Eos # (Auto) 0.0 (0.0-0.7) Baso # (Auto) 0.00 (0.0-2.0) K/mm3 pCO2 (35-45) mm/Hg pO2 (80-100) mm/Hg HCO3 (21-28) mmol/L ABG pH (7.35-7.45) ABG Total CO2 (22-28) mmol.L ABG O2 Saturation (95-98) % ABG O2 Content (15-23) ML/dl ABG Base Excess (-2.0-3.0) mmol/L ABG Hemoglobin (11.7-17.4) g/dL ABG Carboxyhemoglobin (0.5-1.5) % POC ABG HHb (Measured) (0-5) % ABG Methemoglobin (0.0-3.0) % ABG O2 Capacity (16-24) mL/dl ABG Potassium (3.6-5.2) mmol/L Hgb O2 Saturation (95.0-98.0) % Sodium 142 145 (132-148) mmol/L Chloride 105 121 H (98-107) mmol/L Glucose (75-110) mg/dl Lactate (0.7-2.1) mmol/L FiO2 % Potassium 3.4 L 2.1 L* D (3.6-5.0) mmol/L Carbon Dioxide 26 17 L (21-33) mmol/L Anion Gap 14 9 L (10-20) BUN 26 H 16 (7-21) mg/dL Creatinine 0.5 L 0.3 L (0.8-1.5) mg/dl Est GFR ( Amer) > 60 > 60 Est GFR (Non-Af Amer) > 60 > 60 POC Glucose (mg/dL) (65-110) mg/dL Random Glucose 107 68 L (70-110) mg/dL Calcium 8.7 4.8 L* (8.4-10.5) mg/dL Phosphorus 2.3 L 1.4 L* (2.5-4.5) mg/dL Magnesium 2.2 1.4 L (1.7-2.2) mg/dL Total Bilirubin 0.4 0.8 (0.2-1.3) mg/dL AST 18 7 L D (17-59) U/L ALT 15 19 (7-56) U/L Alkaline Phosphatase 133 H D 68 (38-126) U/L Total Protein 5.2 L 2.9 L (5.8-8.3) g/dL Albumin 2.7 L 1.4 L (3.0-4.8) g/dL Globulin 2.6 1.4 gm/dL Albumin/Globulin Ratio 1.0 L 1.0 L (1.1-1.8) Triglycerides 122 (35-160) mg/dL Cholesterol 50 L (130-200) mg/dL LDL Cholesterol Direct < 30 (0-129) mg/dL HDL Cholesterol 16 L (29-60) mg/dL Procalcitonin (0.19-0.49) NG/ML Arterial Blood Potassium (3.6-5.2) mmol/L Urine Color (YELLOW) Urine Appearance (CLEAR) Urine pH (4.7-8.0) Ur Specific [place] (1.005-1.035) Urine Protein (<30 mg/dL) mg/dL Urine Glucose (UA) (NEGATIVE) mg/dL Urine Ketones (NEGATIVE) mg/dL Urine Blood (NEGATIVE) Urine Nitrate (NEGATIVE) Urine Bilirubin (NEGATIVE) Urine Urobilinogen (<1 E.U./dL) E.U./dL Ur Leukocyte Esterase (NEGATIVE) Andres/uL Urine RBC (0-2) /hpf Urine WBC (0-6) /hpf Ur Epithelial Cells (0-5) /hpf Urine Bacteria (NEG) 04/17/17 04/17/17 04/16/17 Range/Units 03:45 03:27 15:10 WBC (4.5-11.0) 10^3/ul RBC (3.5-6.1) 10^6/uL Hgb (14.0-18.0) g/dL Hct (42.0-52.0) % MCV (80.0-105.0) fl MCH (25.0-35.0) pg MCHC (31.0-37.0) g/dl RDW (11.5-14.5) % Plt Count (120.0-450.0) 10^3/uL MPV (7.0-11.0) fl Gran % (50.0-68.0) % Lymph % (Auto) (22.0-35.0) % Archer % (Auto) (1.0-6.0) % Eos % (Auto) (1.5-5.0) % Baso % (Auto) (0.0-3.0) % Gran # (1.4-6.5) Lymph # (Auto) (1.2-3.4) Archer # (Auto) (0.1-0.6) Eos # (Auto) (0.0-0.7) Baso # (Auto) (0.0-2.0) K/mm3 pCO2 33 L (35-45) mm/Hg pO2 67.0 L (80-100) mm/Hg HCO3 28.9 H (21-28) mmol/L ABG pH 7.55 H (7.35-7.45) ABG Total CO2 29.9 H (22-28) mmol.L ABG O2 Saturation 96.6 (95-98) % ABG O2 Content (15-23) ML/dl ABG Base Excess 6.6 H (-2.0-3.0) mmol/L ABG Hemoglobin (11.7-17.4) g/dL ABG Carboxyhemoglobin (0.5-1.5) % POC ABG HHb (Measured) (0-5) % ABG Methemoglobin (0.0-3.0) % ABG O2 Capacity (16-24) mL/dl ABG Potassium 2.9 L (3.6-5.2) mmol/L Hgb O2 Saturation (95.0-98.0) % Sodium 140.0 (132-148) mmol/L Chloride 115.0 H (98-107) mmol/L Glucose 110 (75-110) mg/dl Lactate 1.6 (0.7-2.1) mmol/L FiO2 100.0 % Potassium (3.6-5.0) mmol/L Carbon Dioxide (21-33) mmol/L Anion Gap (10-20) BUN (7-21) mg/dL Creatinine (0.8-1.5) mg/dl Est GFR ( Amer) Est GFR (Non-Af Amer) POC Glucose (mg/dL) 123 H (65-110) mg/dL Random Glucose (70-110) mg/dL Calcium (8.4-10.5) mg/dL Phosphorus (2.5-4.5) mg/dL Magnesium (1.7-2.2) mg/dL Total Bilirubin (0.2-1.3) mg/dL AST (17-59) U/L ALT (7-56) U/L Alkaline Phosphatase (38-126) U/L Total Protein (5.8-8.3) g/dL Albumin (3.0-4.8) g/dL Globulin gm/dL Albumin/Globulin Ratio (1.1-1.8) Triglycerides (35-160) mg/dL Cholesterol (130-200) mg/dL LDL Cholesterol Direct (0-129) mg/dL HDL Cholesterol (29-60) mg/dL Procalcitonin (0.19-0.49) NG/ML Arterial Blood Potassium 2.9 L (3.6-5.2) mmol/L Urine Color Dark yellow (YELLOW) Urine Appearance Clear (CLEAR) Urine pH 5.5 (4.7-8.0) Ur Specific [place] <= 1.005 (1.005-1.035) Urine Protein 30 H (<30 mg/dL) mg/dL Urine Glucose (UA) Negative (NEGATIVE) mg/dL Urine Ketones Trace H (NEGATIVE) mg/dL Urine Blood Moderate H (NEGATIVE) Urine Nitrate Negative (NEGATIVE) Urine Bilirubin Negative (NEGATIVE) Urine Urobilinogen 0.2 (<1 E.U./dL) E.U./dL Ur Leukocyte Esterase Negative (NEGATIVE) Andres/uL Urine RBC 1 - 3 (0-2) /hpf Urine WBC 5 - 10 (0-6) /hpf Ur Epithelial Cells 0 - 2 (0-5) /hpf Urine Bacteria Mod (NEG) 04/16/17 04/16/17 Range/Units 08:49 06:30 WBC (4.5-11.0) 10^3/ul RBC (3.5-6.1) 10^6/uL Hgb (14.0-18.0) g/dL Hct (42.0-52.0) % MCV (80.0-105.0) fl MCH (25.0-35.0) pg MCHC (31.0-37.0) g/dl RDW (11.5-14.5) % Plt Count (120.0-450.0) 10^3/uL MPV (7.0-11.0) fl Gran % (50.0-68.0) % Lymph % (Auto) (22.0-35.0) % Archer % (Auto) (1.0-6.0) % Eos % (Auto) (1.5-5.0) % Baso % (Auto) (0.0-3.0) % Gran # (1.4-6.5) Lymph # (Auto) (1.2-3.4) Archer # (Auto) (0.1-0.6) Eos # (Auto) (0.0-0.7) Baso # (Auto) (0.0-2.0) K/mm3 pCO2 33 L (35-45) mm/Hg pO2 59.0 L (80-100) mm/Hg HCO3 29.5 H (21-28) mmol/L ABG pH 7.56 H (7.35-7.45) ABG Total CO2 30.5 H (22-28) mmol.L ABG O2 Saturation 94.8 L (95-98) % ABG O2 Content 13.4 L (15-23) ML/dl ABG Base Excess 7.1 H (-2.0-3.0) mmol/L ABG Hemoglobin 10.2 L (11.7-17.4) g/dL ABG Carboxyhemoglobin 1.3 (0.5-1.5) % POC ABG HHb (Measured) 5.1 H (0-5) % ABG Methemoglobin 0.6 (0.0-3.0) % ABG O2 Capacity 14.1 L (16-24) mL/dl ABG Potassium (3.6-5.2) mmol/L Hgb O2 Saturation 93.0 L (95.0-98.0) % Sodium (132-148) mmol/L Chloride (98-107) mmol/L Glucose (75-110) mg/dl Lactate (0.7-2.1) mmol/L FiO2 60.0 % Potassium (3.6-5.0) mmol/L Carbon Dioxide (21-33) mmol/L Anion Gap (10-20) BUN (7-21) mg/dL Creatinine (0.8-1.5) mg/dl Est GFR ( Amer) Est GFR (Non-Af Amer) POC Glucose (mg/dL) (65-110) mg/dL Random Glucose (70-110) mg/dL Calcium (8.4-10.5) mg/dL Phosphorus (2.5-4.5) mg/dL Magnesium (1.7-2.2) mg/dL Total Bilirubin (0.2-1.3) mg/dL AST (17-59) U/L ALT (7-56) U/L Alkaline Phosphatase (38-126) U/L Total Protein (5.8-8.3) g/dL Albumin (3.0-4.8) g/dL Globulin gm/dL Albumin/Globulin Ratio (1.1-1.8) Triglycerides (35-160) mg/dL Cholesterol (130-200) mg/dL LDL Cholesterol Direct (0-129) mg/dL HDL Cholesterol (29-60) mg/dL Procalcitonin 0.77 H (0.19-0.49) NG/ML Arterial Blood Potassium (3.6-5.2) mmol/L Urine Color (YELLOW) Urine Appearance (CLEAR) Urine pH (4.7-8.0) Ur Specific [place] (1.005-1.035) Urine Protein (<30 mg/dL) mg/dL Urine Glucose (UA) (NEGATIVE) mg/dL Urine Ketones (NEGATIVE) mg/dL Urine Blood (NEGATIVE) Urine Nitrate (NEGATIVE) Urine Bilirubin (NEGATIVE) Urine Urobilinogen (<1 E.U./dL) E.U./dL Ur Leukocyte Esterase (NEGATIVE) Andres/uL Urine RBC (0-2) /hpf Urine WBC (0-6) /hpf Ur Epithelial Cells (0-5) /hpf Urine Bacteria (NEG) Laboratory Results - last 24 hr 04/16/17 04/16/17 04/16/17 06:30 08:49 15:10 WBC RBC Hgb Hct MCV MCH MCHC RDW Plt Count MPV Gran % Lymph % (Auto) Archer % (Auto) Eos % (Auto) Baso % (Auto) Gran # Lymph # (Auto) Archer # (Auto) Eos # (Auto) Baso # (Auto) pCO2 33 L pO2 59.0 L HCO3 29.5 H ABG pH 7.56 H ABG Total CO2 30.5 H ABG O2 Saturation 94.8 L ABG O2 Content 13.4 L ABG Base Excess 7.1 H ABG Hemoglobin 10.2 L ABG Carboxyhemoglobin 1.3 POC ABG HHb (Measured) 5.1 H ABG Methemoglobin 0.6 ABG O2 Capacity 14.1 L ABG Potassium Hgb O2 Saturation 93.0 L Sodium Chloride Glucose Lactate FiO2 60.0 Potassium Carbon Dioxide Anion Gap BUN Creatinine Est GFR ( Amer) Est GFR (Non-Af Amer) POC Glucose (mg/dL) Random Glucose Calcium Phosphorus Magnesium Total Bilirubin AST ALT Alkaline Phosphatase Total Protein Albumin Globulin Albumin/Globulin Ratio Triglycerides Cholesterol LDL Cholesterol Direct HDL Cholesterol Procalcitonin 0.77 H Arterial Blood Potassium Urine Color Dark yellow Urine Appearance Clear Urine pH 5.5 Ur Specific [place] <= 1.005 Urine Protein 30 H Urine Glucose (UA) Negative Urine Ketones Trace H Urine Blood Moderate H Urine Nitrate Negative Urine Bilirubin Negative Urine Urobilinogen 0.2 Ur Leukocyte Esterase Negative Urine RBC 1 - 3 Urine WBC 5 - 10 Ur Epithelial Cells 0 - 2 Urine Bacteria Mod 04/17/17 04/17/17 04/17/17 03:27 03:45 03:45 WBC RBC Hgb Hct MCV MCH MCHC RDW Plt Count MPV Gran % Lymph % (Auto) Archer % (Auto) Eos % (Auto) Baso % (Auto) Gran # Lymph # (Auto) Archer # (Auto) Eos # (Auto) Baso # (Auto) pCO2 33 L pO2 67.0 L HCO3 28.9 H ABG pH 7.55 H ABG Total CO2 29.9 H ABG O2 Saturation 96.6 ABG O2 Content ABG Base Excess 6.6 H ABG Hemoglobin ABG Carboxyhemoglobin POC ABG HHb (Measured) ABG Methemoglobin ABG O2 Capacity ABG Potassium 2.9 L Hgb O2 Saturation Sodium 140.0 145 Chloride 115.0 H 121 H Glucose 110 Lactate 1.6 FiO2 100.0 Potassium 2.1 L* D Carbon Dioxide 17 L Anion Gap 9 L BUN 16 Creatinine 0.3 L Est GFR ( Amer) > 60 Est GFR (Non-Af Amer) > 60 POC Glucose (mg/dL) 123 H Random Glucose 68 L Calcium 4.8 L* Phosphorus 1.4 L* Magnesium 1.4 L Total Bilirubin 0.8 AST 7 L D ALT 19 Alkaline Phosphatase 68 Total Protein 2.9 L Albumin 1.4 L Globulin 1.4 Albumin/Globulin Ratio 1.0 L Triglycerides 122 Cholesterol 50 L LDL Cholesterol Direct < 30 HDL Cholesterol 16 L Procalcitonin Arterial Blood Potassium 2.9 L Urine Color Urine Appearance Urine pH Ur Specific [place] Urine Protein Urine Glucose (UA) Urine Ketones Urine Blood Urine Nitrate Urine Bilirubin Urine Urobilinogen Ur Leukocyte Esterase Urine RBC Urine WBC Ur Epithelial Cells Urine Bacteria 04/17/17 04/17/17 04:30 04:30 WBC 6.6 RBC 2.68 L Hgb 7.7 L Hct 23.9 L MCV 89.2 MCH 28.7 MCHC 32.2 RDW 18.5 H Plt Count 326 MPV 9.1 Gran % 75.2 H Lymph % (Auto) 11.3 L Archer % (Auto) 13.3 H Eos % (Auto) 0.2 L Baso % (Auto) 0.0 Gran # 5.00 Lymph # (Auto) 0.8 L Archer # (Auto) 0.9 H Eos # (Auto) 0.0 Baso # (Auto) 0.00 pCO2 pO2 HCO3 ABG pH ABG Total CO2 ABG O2 Saturation ABG O2 Content ABG Base Excess ABG Hemoglobin ABG Carboxyhemoglobin POC ABG HHb (Measured) ABG Methemoglobin ABG O2 Capacity ABG Potassium Hgb O2 Saturation Sodium 142 Chloride 105 Glucose Lactate FiO2 Potassium 3.4 L Carbon Dioxide 26 Anion Gap 14 BUN 26 H Creatinine 0.5 L Est GFR ( Amer) > 60 Est GFR (Non-Af Amer) > 60 POC Glucose (mg/dL) Random Glucose 107 Calcium 8.7 Phosphorus 2.3 L Magnesium 2.2 Total Bilirubin 0.4 AST 18 ALT 15 Alkaline Phosphatase 133 H D Total Protein 5.2 L Albumin 2.7 L Globulin 2.6 Albumin/Globulin Ratio 1.0 L Triglycerides Cholesterol LDL Cholesterol Direct HDL Cholesterol Procalcitonin Arterial Blood Potassium Urine Color Urine Appearance Urine pH Ur Specific [place] Urine Protein Urine Glucose (UA) Urine Ketones Urine Blood Urine Nitrate Urine Bilirubin Urine Urobilinogen Ur Leukocyte Esterase Urine RBC Urine WBC Ur Epithelial Cells Urine Bacteria Critical Care Progress Note - Ventilator Checklist Head of Bed 30 Degrees: No - Prophylaxis GI Prophylaxis GI: PPI - Nutrition Nutrition: Nutrition Category Date Time Status NPO Diet [DIET] Diets 04/16/17 Lunch Ordered Assessment/Plan - Assessment and Plan (Free Text) Assessment: Patient is a 61yo male with PMHs of HTN, HLD, CVA with L side weakness (2014), chronic back pain on opioid at home who was admitted for SMA syndrome. Patient is s/p open gastrojejunostomy POD #7. Transferred to ICU due to hypoxia. Plan: Neuro: history of cva with left sided weakness. Mental status currently at baseline. Cardiovascular: Hx HTN, HLD Pt on Lopressor Maintain MAP>65 Cardio following Pulm: Hypoxia likely secondary to aspiration PNA in light of patient continually vomiting- refusing NGT CTA: neg for PE hypoxia resolved Saturating well on high flow at 100%. Aspiration precaution, HOB elevated to 45 degrees Duoneb q4 domonique Maintain spO2>92% GI: s/p gastrojejunostomy POD #7 - NPO as per surgical team s/p NGT with dark greenish drainage Monitor BM Zofran prn nausea on ppi for gi prophylaxis. Heme: Acute on chronic anemia- hgb dropped to 7.1, Plan to transfuse 2 units prbc as per primary, if daughter gives consent. Nephro: Will continue to monitor electrolytes and replace as needed Strict Is and Os Maintain euvolemia ID: No leukocytosis Lactate 1.6 on ABG PCT 0.77 On Merrem, Flagyl and Vanc ID following Endo: Maintain euglycemia. DVT ppx: Heparin SC Patient seen, examined and case discussed with attending - Date & Time Date: 04/17/17 Time: 10:25 <Bob Gutierrez - Last Filed: 04/17/17 14:14> CCU Objective - Vital Signs / Intake & Output Vital Signs (Last 4 hours): Vital Signs Pulse Resp BP 04/17/17 12:00 83 25 H 121/70 04/17/17 11:50 107 H 28 H 04/17/17 11:45 106 H 26 H 96/68 L 04/17/17 11:40 105 H 24 04/17/17 11:30 104 H 27 H 90/58 L 04/17/17 11:20 110 H 30 H 04/17/17 11:15 112 H 27 H 96/68 L 04/17/17 11:10 116 H 27 H 04/17/17 11:00 108 H 25 H 90/59 L 04/17/17 10:51 108 H 24 91/61 L 04/17/17 10:50 104 H 25 H 04/17/17 10:46 108 H 78/44 L 04/17/17 10:45 108 H 24 78/44 L 04/17/17 10:40 108 H 22 04/17/17 10:30 97 H 21 95/45 L 04/17/17 10:20 100 H 22 04/17/17 10:18 110 H 26 H 107/69 Intake and Output (Last 8hrs): Intake & Output 04/16/17 04/17/17 04/17/17 22:59 06:59 14:59 Intake Total 240 Output Total 250 Balance -10 Intake: Oral 240 Output: Urine 250 Urine, Voided 250 Other: # Bowel Movements 0 - Medications Active Medications: Active Medications Generic Name Dose Route Start Last Admin Trade Name Freq PRN Reason Stop Dose Admin Albuterol/Ipratropium 3 ml 04/16/17 15:30 04/17/17 11:12 Duoneb 3 Mg/0.5 Mg (3 Ml) Ud IH 3 ml [id number] DOMONIQUE Administration Carbamazepine 100 mg 04/02/17 23:00 04/17/17 10:47 Tegretol PO Not Given BID DOMONIQUE Protocol Folic Acid 1 mg 04/03/17 10:00 04/17/17 10:45 Folic Acid PO Not Given DAILY DOMONIQUE Gabapentin 300 mg 04/03/17 10:00 04/17/17 13:03 Neurontin PO Not Given TID DOMONIQUE Protocol Heparin Sodium (Porcine) 5,000 units 04/11/17 14:00 04/17/17 12:59 Heparin SC 5,000 units Q8 DOMONIQUE Administration Protocol Hydromorphone HCl 0.5 mg 04/15/17 22:15 04/17/17 05:09 Dilaudid IVP 0.5 mg Q3 PRN Administration Pain, severe (8-10) Metronidazole 500 mg in 100 mls @ 100 mls/hr 04/16/17 14:00 04/17/17 12:59 Flagyl IVPB 100 mls/hr Q8 DOMONIQUE Administration Protocol Meropenem/Sodium Chloride 1 gm in 100 mls @ 100 mls/hr 04/16/17 09:37 13:02 Meropenem 1g/Ns 100ml Ivpb IVPB 04/25/17 09:38 100 mls/hr Q8 DOMONIQUE Administration Protocol Vancomycin HCl 1 gm in 250 mls @ 167 mls/hr 04/16/17 09:45 04/17/17 10:49 Vancomycin 1gm IVPB 04/25/17 09:46 167 mls/hr Q12H DOMONIQUE Administration Protocol Potassium Chloride 20 meq/ 1,010 mls @ 95 mls/hr 04/17/17 00:29 Dextrose/Sodium Chloride IV .[id number] [facility]ONIQUE Chromium/Copper/Manganese/Zinc 1,011 mls @ 42.125 mls/hr 04/17/17 18:00 1 ml/ Multivitamins/Vitamin C IV 04/18/17 17:59 10 ml/ Amino Acids/ .Q24H ONE Electrolytes/Dextrose Fat Emulsion Intravenous 250 mls @ 21 mls/hr 04/17/17 18:00 Intralipid 20% IV [id number]@1800 [facility]ON[facility]QUE Potassium Chloride 10 meq in 100 mls @ 50 mls/hr 04/17/17 13:00 04/17/17 13: 18 Potassium Chloride 10 Meq/100 Ml IVPB 04/17/17 14:59 50 mls/hr Q1H [facility]ONIQUE Administration Lidocaine 1 ea 04/05/17 22:00 04/16/17 23:11 Lidoderm TD Not Given 2200 DOMONIQUE Metoprolol Tartrate 25 mg 04/16/17 18:00 04/17/17 10:46 Lopressor PO Not Given BID DOMONIQUE Mirtazapine 15 mg 04/02/17 23:00 04/16/17 23:11 Remeron PO Not Given HS DOMONIQUE Nicotine 1 patch 04/03/17 15:30 04/17/17 10:00 Nicoderm Cq TD 1 patch DAILY [facility] Administration Ondansetron HCl 4 mg 04/15/17 12:07 04/16/17 20:15 Zofran Inj IVP 4 mg Q4H PRN Administration Nausea/Vomiting Oxycodone/Acetaminophen 1 tab 04/12/17 12:33 04/15/17 05:06 Percocet 10/325 Mg Tab PO 1 tab Q4H PRN Administration Pain, moderate (4-7) Pantoprazole Sodium 40 mg 04/17/17 10:00 04/17/17 10:35 Protonix Inj IVP 40 mg DAILY [facility]ONIQUE Administration Polyethylene Glycol 17 gm 04/16/17 12:45 04/17/17 10:46 Miralax PO Not Given DAILY [facility]ONI[facility] Ropinirole HCl 1 mg 04/08/17 22:00 04/17/17 10:47 Requip PO Not Given [facility] DOMONIQUE Tamsulosin HCl 0.4 mg 04/03/17 10:00 04/17/17 10:45 Flomax PO Not Given DAILY DOMONI[facility] Venlafaxine HCl 37.5 mg 04/03/17 10:00 04/17/17 10:45 Effexor PO Not Given DAILY DOMONIQUE - Patient Studies Lab Studies: Microbiology Studies 04/16/17 01:55 Blood Culture - Preliminary Blood NO GROWTH AFTER 24 HOURS 04/16/17 01:20 Blood Culture - Preliminary Blood NO GROWTH AFTER 24 HOURS Lab Studies 04/17/17 04/17/17 04/17/17 Range/Units 11:20 10:15 10:15 WBC 6.3 (4.5-11.0) 10^3/ul RBC 2.41 L (3.5-6.1) 10^6/uL Hgb 7.0 L (14.0-18.0) g/dL Hct 21.8 L (42.0-52.0) % MCV 90.5 (80.0-105.0) fl MCH 29.0 (25.0-35.0) pg MCHC 32.1 (31.0-37.0) g/dl RDW 18.5 H (11.5-14.5) % Plt Count 374 (120.0-450.0) 10^3/uL MPV 9.6 (7.0-11.0) fl Gran % 72.3 H (50.0-68.0) % Lymph % (Auto) 14.2 L (22.0-35.0) % [place] % (Auto) 13.2 H (1.0-6.0) % Eos % (Auto) 0.3 L (1.5-5.0) % Baso % (Auto) 0.0 (0.0-3.0) % Gran # 4.53 (1.4-6.5) Lymph # (Auto) 0.9 L (1.2-3.4) Archer # (Auto) 0.8 H (0.1-0.6) Eos # (Auto) 0.0 (0.0-0.7) Baso # (Auto) 0.00 (0.0-2.0) K/mm3 pCO2 (35-45) mm/Hg pO2 (80-100) mm/Hg HCO3 (21-28) mmol/L ABG pH (7.35-7.45) ABG Total CO2 (22-28) mmol.L ABG O2 Saturation (95-98) % ABG Base Excess (-2.0-3.0) mmol/L ABG Potassium (3.6-5.2) mmol/L Sodium 144 (132-148) mmol/L Chloride 104 (98-107) mmol/L Glucose (75-110) mg/dl Lactate (0.7-2.1) mmol/L FiO2 % Potassium 3.3 L (3.6-5.0) mmol/L Carbon Dioxide 32 (21-33) mmol/L Anion Gap 12 (10-20) BUN 23 H (7-21) mg/dL Creatinine 0.5 L (0.8-1.5) mg/dl Est GFR ( Amer) > 60 Est GFR (Non-Af Amer) > 60 POC Glucose (mg/dL) (65-110) mg/dL Random Glucose 104 (70-110) mg/dL Calcium 8.4 (8.4-10.5) mg/dL Phosphorus (2.5-4.5) mg/dL Magnesium (1.7-2.2) mg/dL Total Bilirubin (0.2-1.3) mg/dL AST (17-59) U/L ALT (7-56) U/L Alkaline Phosphatase (38-126) U/L Total Protein (5.8-8.3) g/dL Albumin (3.0-4.8) g/dL Globulin gm/dL Albumin/Globulin Ratio (1.1-1.8) Triglycerides (35-160) mg/dL Cholesterol (130-200) mg/dL LDL Cholesterol Direct (0-129) mg/dL HDL Cholesterol (29-60) mg/dL Procalcitonin (0.19-0.49) NG/ML Arterial Blood Potassium (3.6-5.2) mmol/L Urine Color (YELLOW) Urine Appearance (CLEAR) Urine pH (4.7-8.0) Ur Specific [place] (1.005-1.035) Urine Protein (<30 mg/dL) mg/dL Urine Glucose (UA) (NEGATIVE) mg/dL Urine Ketones (NEGATIVE) mg/dL Urine Blood (NEGATIVE) Urine Nitrate (NEGATIVE) Urine Bilirubin (NEGATIVE) Urine Urobilinogen (<1 E.U./dL) E.U./dL Ur Leukocyte Esterase (NEGATIVE) Andres/uL Urine RBC (0-2) /hpf Urine WBC (0-6) /hpf Ur Epithelial Cells (0-5) /hpf Urine Bacteria (NEG) Blood Type O NEGATIVE Antibody Screen Negative Crossmatch See Detail BBK History Checked Patient has bt 04/17/17 04/17/17 04/17/17 Range/Units 04:30 04:30 03:45 WBC 6.6 (4.5-11.0) 10^3/ul RBC 2.68 L (3.5-6.1) 10^6/uL Hgb 7.7 L (14.0-18.0) g/dL Hct 23.9 L (42.0-52.0) % MCV 89.2 (80.0-105.0) fl MCH 28.7 (25.0-35.0) pg MCHC 32.2 (31.0-37.0) g/dl RDW 18.5 H (11.5-14.5) % Plt Count 326 (120.0-450.0) 10^3/uL MPV 9.1 (7.0-11.0) fl Gran % 75.2 H (50.0-68.0) % Lymph % (Auto) 11.3 L (22.0-35.0) % Archer % (Auto) 13.3 H (1.0-6.0) % Eos % (Auto) 0.2 L (1.5-5.0) % Baso % (Auto) 0.0 (0.0-3.0) % Gran # 5.00 (1.4-6.5) Lymph # (Auto) 0.8 L (1.2-3.4) Archer # (Auto) 0.9 H (0.1-0.6) Eos # (Auto) 0.0 (0.0-0.7) Baso # (Auto) 0.00 (0.0-2.0) K/mm3 pCO2 (35-45) mm/Hg pO2 (80-100) mm/Hg HCO3 (21-28) mmol/L ABG pH (7.35-7.45) ABG Total CO2 (22-28) mmol.L ABG O2 Saturation (95-98) % ABG Base Excess (-2.0-3.0) mmol/L ABG Potassium (3.6-5.2) mmol/L Sodium 142 145 (132-148) mmol/L Chloride 105 121 H (98-107) mmol/L Glucose (75-110) mg/dl Lactate (0.7-2.1) mmol/L FiO2 % Potassium 3.4 L 2.1 L* D (3.6-5.0) mmol/L Carbon Dioxide 26 17 L (21-33) mmol/L Anion Gap 14 9 L (10-20) BUN 26 H 16 (7-21) mg/dL Creatinine 0.5 L 0.3 L (0.8-1.5) mg/dl Est GFR ( Amer) > 60 > 60 Est GFR (Non-Af Amer) > 60 > 60 POC Glucose (mg/dL) (65-110) mg/dL Random Glucose 107 68 L (70-110) mg/dL Calcium 8.7 4.8 L* (8.4-10.5) mg/dL Phosphorus 2.3 L 1.4 L* (2.5-4.5) mg/dL Magnesium 2.2 1.4 L (1.7-2.2) mg/dL Total Bilirubin 0.4 0.8 (0.2-1.3) mg/dL AST 18 7 L D (17-59) U/L ALT 15 19 (7-56) U/L Alkaline Phosphatase 133 H D 68 (38-126) U/L Total Protein 5.2 L 2.9 L (5.8-8.3) g/dL Albumin 2.7 L 1.4 L (3.0-4.8) g/dL Globulin 2.6 1.4 gm/dL Albumin/Globulin Ratio 1.0 L 1.0 L (1.1-1.8) Triglycerides 122 (35-160) mg/dL Cholesterol 50 L (130-200) mg/dL LDL Cholesterol Direct < 30 (0-129) mg/dL HDL Cholesterol 16 L (29-60) mg/dL Procalcitonin (0.19-0.49) NG/ML Arterial Blood Potassium (3.6-5.2) mmol/L Urine Color (YELLOW) Urine Appearance (CLEAR) Urine pH (4.7-8.0) Ur Specific [place] (1.005-1.035) Urine Protein (<30 mg/dL) mg/dL Urine Glucose (UA) (NEGATIVE) mg/dL Urine Ketones (NEGATIVE) mg/dL Urine Blood (NEGATIVE) Urine Nitrate (NEGATIVE) Urine Bilirubin (NEGATIVE) Urine Urobilinogen (<1 E.U./dL) E.U./dL Ur Leukocyte Esterase (NEGATIVE) Andres/uL Urine RBC (0-2) /hpf Urine WBC (0-6) /hpf Ur Epithelial Cells (0-5) /hpf Urine Bacteria (NEG) Blood Type Antibody Screen Crossmatch BBK History Checked 04/17/17 04/17/17 04/16/17 Range/Units 03:45 03:27 15:10 WBC (4.5-11.0) 10^3/ul RBC (3.5-6.1) 10^6/uL Hgb (14.0-18.0) g/dL Hct (42.0-52.0) % MCV (80.0-105.0) fl MCH (25.0-35.0) pg MCHC (31.0-37.0) g/dl RDW (11.5-14.5) % Plt Count (120.0-450.0) 10^3/uL MPV (7.0-11.0) fl Gran % (50.0-68.0) % Lymph % (Auto) (22.0-35.0) % Archer % (Auto) (1.0-6.0) % Eos % (Auto) (1.5-5.0) % Baso % (Auto) (0.0-3.0) % Gran # (1.4-6.5) Lymph # (Auto) (1.2-3.4) Archer # (Auto) (0.1-0.6) Eos # (Auto) (0.0-0.7) Baso # (Auto) (0.0-2.0) K/mm3 pCO2 33 L (35-45) mm/Hg pO2 67.0 L (80-100) mm/Hg HCO3 28.9 H (21-28) mmol/L ABG pH 7.55 H (7.35-7.45) ABG Total CO2 29.9 H (22-28) mmol.L ABG O2 Saturation 96.6 (95-98) % ABG Base Excess 6.6 H (-2.0-3.0) mmol/L ABG Potassium 2.9 L (3.6-5.2) mmol/L Sodium 140.0 (132-148) mmol/L Chloride 115.0 H (98-107) mmol/L Glucose 110 (75-110) mg/dl Lactate 1.6 (0.7-2.1) mmol/L FiO2 100.0 % Potassium (3.6-5.0) mmol/L Carbon Dioxide (21-33) mmol/L Anion Gap (10-20) BUN (7-21) mg/dL Creatinine (0.8-1.5) mg/dl Est GFR ( Amer) Est GFR (Non-Af Amer) POC Glucose (mg/dL) 123 H (65-110) mg/dL Random Glucose (70-110) mg/dL Calcium (8.4-10.5) mg/dL Phosphorus (2.5-4.5) mg/dL Magnesium (1.7-2.2) mg/dL Total Bilirubin (0.2-1.3) mg/dL AST (17-59) U/L ALT (7-56) U/L Alkaline Phosphatase (38-126) U/L Total Protein (5.8-8.3) g/dL Albumin (3.0-4.8) g/dL Globulin gm/dL Albumin/Globulin Ratio (1.1-1.8) Triglycerides (35-160) mg/dL Cholesterol (130-200) mg/dL LDL Cholesterol Direct (0-129) mg/dL HDL Cholesterol (29-60) mg/dL Procalcitonin (0.19-0.49) NG/ML Arterial Blood Potassium 2.9 L (3.6-5.2) mmol/L Urine Color Dark yellow (YELLOW) Urine Appearance Clear (CLEAR) Urine pH 5.5 (4.7-8.0) Ur Specific [place] <= 1.005 (1.005-1.035) Urine Protein 30 H (<30 mg/dL) mg/dL Urine Glucose (UA) Negative (NEGATIVE) mg/dL Urine Ketones Trace H (NEGATIVE) mg/dL Urine Blood Moderate H (NEGATIVE) Urine Nitrate Negative (NEGATIVE) Urine Bilirubin Negative (NEGATIVE) Urine Urobilinogen 0.2 (<1 E.U./dL) E.U./dL Ur Leukocyte Esterase Negative (NEGATIVE) Andres/uL Urine RBC 1 - 3 (0-2) /hpf Urine WBC 5 - 10 (0-6) /hpf Ur Epithelial Cells 0 - 2 (0-5) /hpf Urine Bacteria Mod (NEG) Blood Type Antibody Screen Crossmatch BBK History Checked 04/16/17 Range/Units 06:30 WBC (4.5-11.0) 10^3/ul RBC (3.5-6.1) 10^6/uL Hgb (14.0-18.0) g/dL Hct (42.0-52.0) % MCV (80.0-105.0) fl MCH (25.0-35.0) pg MCHC (31.0-37.0) g/dl RDW (11.5-14.5) % Plt Count (120.0-450.0) 10^3/uL MPV (7.0-11.0) fl Gran % (50.0-68.0) % Lymph % (Auto) (22.0-35.0) % Archer % (Auto) (1.0-6.0) % Eos % (Auto) (1.5-5.0) % Baso % (Auto) (0.0-3.0) % Gran # (1.4-6.5) Lymph # (Auto) (1.2-3.4) Archer # (Auto) (0.1-0.6) Eos # (Auto) (0.0-0.7) Baso # (Auto) (0.0-2.0) K/mm3 pCO2 (35-45) mm/Hg pO2 (80-100) mm/Hg HCO3 (21-28) mmol/L ABG pH (7.35-7.45) ABG Total CO2 (22-28) mmol.L ABG O2 Saturation (95-98) % ABG Base Excess (-2.0-3.0) mmol/L ABG Potassium (3.6-5.2) mmol/L Sodium (132-148) mmol/L Chloride (98-107) mmol/L Glucose (75-110) mg/dl Lactate (0.7-2.1) mmol/L FiO2 % Potassium (3.6-5.0) mmol/L Carbon Dioxide (21-33) mmol/L Anion Gap (10-20) BUN (7-21) mg/dL Creatinine (0.8-1.5) mg/dl Est GFR ( Amer) Est GFR (Non-Af Amer) POC Glucose (mg/dL) (65-110) mg/dL Random Glucose (70-110) mg/dL Calcium (8.4-10.5) mg/dL Phosphorus (2.5-4.5) mg/dL Magnesium (1.7-2.2) mg/dL Total Bilirubin (0.2-1.3) mg/dL AST (17-59) U/L ALT (7-56) U/L Alkaline Phosphatase (38-126) U/L Total Protein (5.8-8.3) g/dL Albumin (3.0-4.8) g/dL Globulin gm/dL Albumin/Globulin Ratio (1.1-1.8) Triglycerides (35-160) mg/dL Cholesterol (130-200) mg/dL LDL Cholesterol Direct (0-129) mg/dL HDL Cholesterol (29-60) mg/dL Procalcitonin 0.77 H (0.19-0.49) NG/ML Arterial Blood Potassium (3.6-5.2) mmol/L Urine Color (YELLOW) Urine Appearance (CLEAR) Urine pH (4.7-8.0) Ur Specific [place] (1.005-1.035) Urine Protein (<30 mg/dL) mg/dL Urine Glucose (UA) (NEGATIVE) mg/dL Urine Ketones (NEGATIVE) mg/dL Urine Blood (NEGATIVE) Urine Nitrate (NEGATIVE) Urine Bilirubin (NEGATIVE) Urine Urobilinogen (<1 E.U./dL) E.U./dL Ur Leukocyte Esterase (NEGATIVE) Andres/uL Urine RBC (0-2) /hpf Urine WBC (0-6) /hpf Ur Epithelial Cells (0-5) /hpf Urine Bacteria (NEG) Blood Type Antibody Screen Crossmatch BBK History Checked Laboratory Results - last 24 hr 04/16/17 04/16/17 04/17/17 06:30 15:10 03:27 WBC RBC Hgb Hct MCV MCH MCHC RDW Plt Count MPV Gran % Lymph % (Auto) Archer % (Auto) Eos % (Auto) Baso % (Auto) Gran # Lymph # (Auto) Archer # (Auto) Eos # (Auto) Baso # (Auto) pCO2 pO2 HCO3 ABG pH ABG Total CO2 ABG O2 Saturation ABG Base Excess ABG Potassium Sodium Chloride Glucose Lactate FiO2 Potassium Carbon Dioxide Anion Gap BUN Creatinine Est GFR ( Amer) Est GFR (Non-Af Amer) POC Glucose (mg/dL) 123 H Random Glucose Calcium Phosphorus Magnesium Total Bilirubin AST ALT Alkaline Phosphatase Total Protein Albumin Globulin Albumin/Globulin Ratio Triglycerides Cholesterol LDL Cholesterol Direct HDL Cholesterol Procalcitonin 0.77 H Arterial Blood Potassium Urine Color Dark yellow Urine Appearance Clear Urine pH 5.5 Ur Specific [place] <= 1.005 Urine Protein 30 H Urine Glucose (UA) Negative Urine Ketones Trace H Urine Blood Moderate H Urine Nitrate Negative Urine Bilirubin Negative Urine Urobilinogen 0.2 Ur Leukocyte Esterase Negative Urine RBC 1 - 3 Urine WBC 5 - 10 Ur Epithelial Cells 0 - 2 Urine Bacteria Mod Blood Type Antibody Screen Crossmatch BBK History Checked 04/17/17 04/17/17 04/17/17 03:45 03:45 04:30 WBC 6.6 RBC 2.68 L Hgb 7.7 L Hct 23.9 L MCV 89.2 MCH 28.7 MCHC 32.2 RDW 18.5 H Plt Count 326 MPV 9.1 Gran % 75.2 H Lymph % (Auto) 11.3 L Archer % (Auto) 13.3 H Eos % (Auto) 0.2 L Baso % (Auto) 0.0 Gran # 5.00 Lymph # (Auto) 0.8 L Archer # (Auto) 0.9 H Eos # (Auto) 0.0 Baso # (Auto) 0.00 pCO2 33 L pO2 67.0 L HCO3 28.9 H ABG pH 7.55 H ABG Total CO2 29.9 H ABG O2 Saturation 96.6 ABG Base Excess 6.6 H ABG Potassium 2.9 L Sodium 140.0 145 Chloride 115.0 H 121 H Glucose 110 Lactate 1.6 FiO2 100.0 Potassium 2.1 L* D Carbon Dioxide 17 L Anion Gap 9 L BUN 16 Creatinine 0.3 L Est GFR ( Amer) > 60 Est GFR (Non-Af Amer) > 60 POC Glucose (mg/dL) Random Glucose 68 L Calcium 4.8 L* Phosphorus 1.4 L* Magnesium 1.4 L Total Bilirubin 0.8 AST 7 L D ALT 19 Alkaline Phosphatase 68 Total Protein 2.9 L Albumin 1.4 L Globulin 1.4 Albumin/Globulin Ratio 1.0 L Triglycerides 122 Cholesterol 50 L LDL Cholesterol Direct < 30 HDL Cholesterol 16 L Procalcitonin Arterial Blood Potassium 2.9 L Urine Color Urine Appearance Urine pH Ur Specific [place] Urine Protein Urine Glucose (UA) Urine Ketones Urine Blood Urine Nitrate Urine Bilirubin Urine Urobilinogen Ur Leukocyte Esterase Urine RBC Urine WBC Ur Epithelial Cells Urine Bacteria Blood Type Antibody Screen Crossmatch BBK History Checked 04/17/17 04/17/17 04/17/17 04:30 10:15 10:15 WBC 6.3 RBC 2.41 L Hgb 7.0 L Hct 21.8 L MCV 90.5 MCH 29.0 MCHC 32.1 RDW 18.5 H Plt Count 374 MPV 9.6 Gran % 72.3 H Lymph % (Auto) 14.2 L Archer % (Auto) 13.2 H Eos % (Auto) 0.3 L Baso % (Auto) 0.0 Gran # 4.53 Lymph # (Auto) 0.9 L Archer # (Auto) 0.8 H Eos # (Auto) 0.0 Baso # (Auto) 0.00 pCO2 pO2 HCO3 ABG pH ABG Total CO2 ABG O2 Saturation ABG Base Excess ABG Potassium Sodium 142 Chloride 105 Glucose Lactate FiO2 Potassium 3.4 L Carbon Dioxide 26 Anion Gap 14 BUN 26 H Creatinine 0.5 L Est GFR ( Amer) > 60 Est GFR (Non-Af Amer) > 60 POC Glucose (mg/dL) Random Glucose 107 Calcium 8.7 Phosphorus 2.3 L Magnesium 2.2 Total Bilirubin 0.4 AST 18 ALT 15 Alkaline Phosphatase 133 H D Total Protein 5.2 L Albumin 2.7 L Globulin 2.6 Albumin/Globulin Ratio 1.0 L Triglycerides Cholesterol LDL Cholesterol Direct HDL Cholesterol Procalcitonin Arterial Blood Potassium Urine Color Urine Appearance Urine pH Ur Specific [place] Urine Protein Urine Glucose (UA) Urine Ketones Urine Blood Urine Nitrate Urine Bilirubin Urine Urobilinogen Ur Leukocyte Esterase Urine RBC Urine WBC Ur Epithelial Cells Urine Bacteria Blood Type O NEGATIVE Antibody Screen Negative Crossmatch See Detail BBK History Checked Patient has bt 04/17/17 11:20 WBC RBC Hgb Hct MCV MCH MCHC RDW Plt Count MPV Gran % Lymph % (Auto) Archer % (Auto) Eos % (Auto) Baso % (Auto) Gran # Lymph # (Auto) Archer # (Auto) Eos # (Auto) Baso # (Auto) pCO2 pO2 HCO3 ABG pH ABG Total CO2 ABG O2 Saturation ABG Base Excess ABG Potassium Sodium 144 Chloride 104 Glucose Lactate FiO2 Potassium 3.3 L Carbon Dioxide 32 Anion Gap 12 BUN 23 H Creatinine 0.5 L Est GFR ( Amer) > 60 Est GFR (Non-Af Amer) > 60 POC Glucose (mg/dL) Random Glucose 104 Calcium 8.4 Phosphorus Magnesium Total Bilirubin AST ALT Alkaline Phosphatase Total Protein Albumin Globulin Albumin/Globulin Ratio Triglycerides Cholesterol LDL Cholesterol Direct HDL Cholesterol Procalcitonin Arterial Blood Potassium Urine Color Urine Appearance Urine pH Ur Specific [place] Urine Protein Urine Glucose (UA) Urine Ketones Urine Blood Urine Nitrate Urine Bilirubin Urine Urobilinogen Ur Leukocyte Esterase Urine RBC Urine WBC Ur Epithelial Cells Urine Bacteria Blood Type Antibody Screen Crossmatch BBK History Checked Critical Care Progress Note - Nutrition Nutrition: Nutrition Category Date Time Status NPO Diet [DIET] Diets 04/16/17 Lunch Ordered Assessment/Plan - Assessment and Plan (Free Text) Plan: Pt seen and examined on rounds with resident agree with note with following additions/exceptions: 61yo male with PMHs of HTN, HLD, CVA with L side weakness, chronic back pain on opioid at home who was admitted for SMA syndrome, s/p open gastrojejunostomy POD #7. Transferred to ICU due to hypoxia, requiring high flow O2. Pt is DNR/ DNI. Currently on high flow O2, 100%, 50LPM, sat 100%, in NAD, comfortable, NGT in pladce, draining billious material, surgery following. Cont wiht high flow O2 , monitor sat, pt is DNR, DNI. monitor NGT output, follow up surgery. Cont with Mermaryanne, Ilya, Jill, follow up ID. BP control, IVF hydration. HH 7.0, transfuse 1u PRBC, monitor CBC. GI follow up. GI ppx, DVT ppx. Monitor in MICU
--- NOTE | 2017-04-17 08:46 | CON ---
DATE: 04/16/2017 The patient is seen this morning in 575, bed 2. CHIEF COMPLAINT: Fever x1 day. HISTORY OF PRESENT ILLNESS: This is a 61-year-old male, who is admitted with partial small bowel obstruction on 04/02/2017 and who has a history of hypertension, cerebrovascular accident with left-sided weakness, chronic back pain, on opioids at home, was admitted with nausea and vomiting, and the patient had a gastrojejunostomy and today is postprocedure day #6, and has low-grade fevers, abdominal discomfort, nausea and vomiting. The patient's surgery was on 04/10/2017 and operative findings were engorged vessel anatomy throughout the abdomen. Patient's gastrojejunal anastomosis without torsion, with a partial small bowel obstruction with an SMA syndrome. Operative note is reviewed. 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 The patient had a laparoscopy followed by open gastroenterostomy by Dr. Rashawn Toscano and now the patient has abdominal discomfort, nausea, vomiting, fevers, mild cough and shortness of breath. PAST MEDICAL HISTORY: Significant for hypertension, cerebrovascular accident, left-sided weakness, chronic back pain, on opiates at home, BPH, arthritis, anxiety. PAST SURGICAL HISTORY: Significant for left knee surgery many years ago. ALLERGIES: THE PATIENT IS ALLERGIC TO SULFA. MEDICATIONS AT HOME: Include Effexor, which is venlafaxine, tamsulosin, mirtazapine, metoprolol, Percocet,Ambien, zinc. PHYSICAL EXAMINATION: VITAL SIGNS: Patient is in bed with a temperature of 100, heart rate of 115, blood pressure is 120/80, respiratory rate of 24. HEENT: Unremarkable. NECK: Supple. LUNGS: Have decreased breath sounds. HEART: Normal S1, S2. ABDOMEN: Soft. Mild tenderness. No rebound or guarding. No masses. Surgical site is clean. LABORATORY DATA: Reveals a white count of 6.5, hemoglobin of 9, platelets of 364. Coagulation is noted. Stool occult blood is negative. Microbiology were noted. The patient had a chest x-ray on 04/14/2017, did have diminished volume, and today's chest x-ray is pending. The patient's pathology is also reviewed, which showed a superior mesenteric artery syndrome as a clinical history and the final diagnosis of piece of gastric wall showing mild chronic gastritis, stains for Helicobacter pylori is negative for organism, negative for malignancy. ASSESSMENT AND PLAN: This is a 61-year-old male with history of hypertension, cerebrovascular accident, left-sided weakness, anxiety, arthritis, chronic back pain and who is admitted with small bowel obstruction, had abdominal surgery, had an open gastrojejunostomy and now postprocedure day #6 with systemic inflammatory response syndrome, tachycardia, short of breath, fevers and must rule out healthcare associated pneumonia, rule out GI pathology abscess and/or obstruction. The patient is scheduled for a CAT scan of the abdomen and pelvis. We will start the patient on vancomycin and meropenem, order blood cultures, urine cultures, urinalysis, sputum culture and procalcitonin. We will discontinue the once daily vancomycin, which is started and the ceftriaxone. We will make further recommendations pending initial cultures, CAT scan, chest x-ray, procalcitonin and workup results. I will follow closely with you. We will also order an HIV because of his age. Fidencio Mckenna MD
--- NOTE | 2017-04-17 08:56 | US ---
HISTORY: Leg pain and swelling. Evaluate for DVT PHYSICIAN(S): Will Patrick MD. TECHNIQUE: Duplex sonography and color-flow Doppler with graded compression were used to evaluate the deep venous systems of both lower extremities. FINDINGS: The visualized deep venous systems of both lower extremities are sonographically normal and compressible. Normal wave forms and augmentation are seen. There is no sonographic evidence for deep venous thrombosis in the visualized segments of both lower extremities. IMPRESSION: No sonographic evidence for deep venous thrombosis in the visualized segments of both lower extremities.
--- NOTE | 2017-04-17 09:10 | CP.PCM.PN ---
Subjective - Date & Time of Evaluation Date of Evaluation: 04/17/17 Time of Evaluation: 09:04 - Subjective Subjective: Patient seen and examined, he remains in critical care unit, lethargic appearing. No acute events overnight, as per nursing staff no bowel movements. He continues to have dark brown NGT output, approximately 150 cc during last shift. No reported vomiting, fever/chills. Review of vitals from today shows tachycardia, tachypnea. 12 point review of systems performed, negative aside from mentioned above. Objective - Vital Signs/Intake and Output Vital Signs (last 24 hours): Temp Pulse Resp BP Pulse Ox 98.4 F 127 H 33 H 114/83 95 04/16/17 16:00 04/16/17 19:09 04/17/17 04:22 04/16/17 19:09 04/16/17 16:00 Intake and Output: 04/17/17 04/17/17 06:59 18:59 Intake Total 240 Output Total 250 Balance -10 - Medications Medications: Current Medications Albuterol/Ipratropium (Duoneb 3 Mg/0.5 Mg (3 Ml) Ud) 3 ml IH [id number] [facility] Last Admin: 04/17/17 08:05 Dose: 3 ml Carbamazepine (Tegretol) 100 mg PO BID [facility]ILARY PRN Reason: Protocol Last Admin: 04/16/17 19:10 Dose: Not Given Folic Acid (Folic Acid) 1 mg PO DAILY [facility] [place] Last Admin: 04/16/17 11:15 Dose: Not Given Gabapentin (Neurontin) 300 mg PO TID [facility]ILARY PRN Reason: Protocol Last Admin: 04/16/17 19:09 Dose: Not Given Heparin Sodium (Porcine) (Heparin) 5,000 units SC Q8 [facility]ARY PRN Reason: Protocol Last Admin: 04/17/17 05:09 Dose: 5,000 units Hydromorphone HCl (Dilaudid) 0.5 mg IVP Q3 PRN PRN Reason: Pain, severe (8-10) Last Admin: 04/17/17 05:09 Dose: 0.5 mg Metronidazole (Flagyl) 500 mg in 100 mls @ 100 mls/hr IVPB Q8 [facility]ILARY PRN Reason: Protocol Last Admin: 04/16/17 23:09 Dose: 100 mls/hr Meropenem/Sodium Chloride (Meropenem 1g/Ns 100ml Ivpb) 1 gm in 100 mls @ 100 mls/hr IVPB Q8 [facility]ILARY PRN Reason: Protocol Stop: 04/25/17 09:38 Last Admin: 04/17/17 07:51 Dose: 100 mls/hr Vancomycin HCl (Vancomycin 1gm) 1 gm in 250 mls @ 167 mls/hr IVPB Q12H [facility] PRN Reason: Protocol Stop: 04/25/17 09:46 Last Admin: 04/17/17 01:55 Dose: 167 mls/hr Potassium Chloride 20 meq/ (Dextrose/Sodium Chloride) 1,010 mls @ 95 mls/hr IV .[id number] [facility] Potassium Phosphate 15 mmole/ (Dextrose) 255 mls @ 42.5 mls/hr IVPB ONCE ONE Stop: 04/17/17 10:45 Chromium/Copper/Manganese/Zinc 1 ml/ Multivitamins/Vitamin C 10 ml/ Amino Acids/ Electrolytes/Dextrose 1,011 mls @ 42.125 mls/hr IV .Q24H ONE Stop: 04/18/17 17:59 Fat Emulsion Intravenous (Intralipid 20%) 250 mls @ 21 mls/hr IV MWF@1800 [facility] Lidocaine (Lidoderm) 1 ea TD 2200 [facility] Last Admin: 04/16/17 23:11 Dose: Not Given Metoprolol Tartrate (Lopressor) 25 mg PO BID [facility] Last Admin: 04/16/17 19:09 Dose: 25 mg Mirtazapine (Remeron) 15 mg PO HS [facility] [place] Last Admin: 04/16/17 23:11 Dose: Not Given Nicotine (Nicoderm Cq) 1 patch TD DAILY [facility] [place] Last Admin: 04/16/17 11:21 Dose: 1 patch Ondansetron HCl (Zofran Inj) 4 mg IVP Q4H PRN PRN Reason: Nausea/Vomiting Last Admin: 04/16/17 20:15 Dose: 4 mg Oxycodone/Acetaminophen (Percocet 10/325 Mg Tab) 1 tab PO Q4H PRN PRN Reason: Pain, moderate (4-7) Last Admin: 04/15/17 05:06 Dose: 1 tab Pantoprazole Sodium (Protonix Inj) 40 mg IVP DAILY [facility] [place] Polyethylene Glycol (Miralax) 17 gm PO DAILY [facility] [place] Last Admin: 04/16/17 19:09 Dose: 17 gm Ropinirole HCl (Requip) 1 mg PO AMHS [facility] [place] Last Admin: 04/16/17 23:11 Dose: Not Given Tamsulosin HCl (Flomax) 0.4 mg PO DAILY [facility] [place] Last Admin: 04/16/17 11:15 Dose: Not Given Venlafaxine HCl (Effexor) 37.5 mg PO DAILY [facility] [place] Last Admin: 04/16/17 11:16 Dose: Not Given - Labs Labs: 04/17/17 04:30 04/17/17 04:30 PT 12.5 SECONDS (9.4-12.5) 04/09/17 15:35 INR 1.09 (0.93-1.08) H 04/09/17 15:35 APTT 32.7 Seconds (25.1-36.5) 04/09/17 15:35 - Constitutional Appears: Non-toxic, Chronically Ill - Head Exam Head Exam: NORMAL INSPECTION - Eye Exam Eye Exam: EOMI, Normal appearance - ENT Exam ENT Exam: Mucous Membranes Dry - Respiratory Exam Respiratory Exam: Decreased Breath Sounds Additional comments: bilateral bases - Cardiovascular Exam Cardiovascular Exam: REGULAR RHYTHM, +S1, +S2 - GI/Abdominal Exam GI & Abdominal Exam: Soft, Hypoactive Bowel Sounds Additional comments: non tender to palpation in four quadrants midline surgical site with antiontete present - Extremities Exam Extremities Exam: Pedal Edema - Skin Skin Exam: Dry, Intact, Normal Color, Warm Assessment and Plan - Assessment and Plan (Free Text) Assessment: CVA HTN Hyperlipidemia SMA syndrome, s/p gastrojejunostomy Anemia Plan: - NPO - Continue to monitor NGT output - Continue with PPI therapy - Continue to monitor H/H, transfuse as necessary - Follow up surgical recommendations - Anti-emetic therapy PRN - Would attempt to limit narcotic pain medication use as this may contribute to ongoing respiratory suppression and mental status changes - Continue with antibiotic and PPN therapy - Overall patient prognosis is guarded
--- NOTE | 2017-04-17 09:17 | RAD ---
HISTORY: s/p ngt COMPARISON: 04/17/2017. FINDINGS: The nasogastric tube terminates in the stomach. LUNGS: There is multifocal consolidation in the right mid lung and lower lobe. There left lower lobe airspace disease. PLEURA: Small bilateral pleural effusions, no pneumothorax apparent. CARDIOVASCULAR: Normal. OSSEOUS STRUCTURES: No significant abnormalities. VISUALIZED UPPER ABDOMEN: Normal. OTHER FINDINGS: None. IMPRESSION: Nasogastric tube terminates in the stomach. No change in multifocal right lower lobe and left lower lobe presumable pneumonia. Stable small pleural effusions.
[2017-04-17] MEDS ORDERED: cefTRIAXone 1 gm 1 GM/100 ML BAG IVPB SCH (10:00)
[2017-04-17 10:18] LABS: EOS % 0.3 % (1.5-5.0); GRAN # 4.53 (1.4-6.5); GRAN % 72.3 % (50.0-68.0); LYMPH # 0.9 (1.2-3.4); LYMPH % 14.2 % (22.0-35.0); MEAN CELL VOLUME 90.5 fl (80.0-105.0); MEAN CORPUSCULAR HGB CONC 32.1 g/dl (31.0-37.0); MEAN PLATELET VOLUME 9.6 fl (7.0-11.0); MONO # 0.8 (0.1-0.6); MONO % 13.2 % (1.0-6.0); RBC 2.41 10^6/uL (3.5-6.1); RED CELL DISTRIBUTION WIDTH 18.5 % (11.5-14.5); WHITE BLOOD COUNT 6.3 10^3/ul (4.5-11.0)
[2017-04-17] MEDS: POLYETHYLENE GLYCOL 3350 17 GM/Dose PACKET PO SCH (10:46)
[2017-04-17 11:43] LABS: BLOOD UREA NITROGEN 23 mg/dL (7-21); CALCIUM 8.4 mg/dL (8.4-10.5); GFR AFRICAN-AMERICAN > 60; GFR NON-AFRICAN AMERICAN > 60
--- NOTE | 2017-04-17 14:40 | RAD ---
HISTORY: hypoxia, altered mental status COMPARISON: 04/16/2017 FINDINGS: LUNGS: There is interval improved aeration in the lungs with consolidation in the right lower lobe and minimal airspace disease in the left lung base. PLEURA: No significant pleural effusion identified, no pneumothorax apparent. CARDIOVASCULAR: Normal. OSSEOUS STRUCTURES: No significant abnormalities. VISUALIZED UPPER ABDOMEN: Normal. OTHER FINDINGS: None. IMPRESSION: Persistent right lower lobe consolidation and left basilar atelectasis/ pneumonia. Interval improved aeration in both lungs with
[2017-04-17] MEDS: Lidocaine 5% Patch TD SCH ×2 (14:42→21:46)
--- NOTE | 2017-04-17 14:55 | CP.PCM.PN ---
Subjective - Date & Time of Evaluation Date of Evaluation: 04/17/17 Time of Evaluation: 07:00 - Subjective Subjective: Surgery: Dr. Toscano Patient requiring increase high flow O2 overnight. Patient finally agreeable to NGT placement. Initial output was approximately 3.5 liters of fluid. Patient transferred into ICU for closer monitoring. Objective - Vital Signs/Intake and Output Vital Signs (last 24 hours): Temp Pulse Resp BP Pulse Ox 98.4 F 83 25 H 121/70 100 04/16/17 16:00 04/17/17 12:00 04/17/17 12:00 04/17/17 12:00 04/17/17 10:10 Intake and Output: 04/17/17 04/17/17 06:59 18:59 Intake Total 240 Output Total 250 Balance -10 - Medications Medications: Current Medications Albuterol/Ipratropium (Duoneb 3 Mg/0.5 Mg (3 Ml) Ud) 3 ml IH [id number] [facility] Last Admin: 04/17/17 11:12 Dose: 3 ml Carbamazepine (Tegretol) 100 mg PO BID [facility] PRN Reason: Protocol Last Admin: 04/17/17 10:47 Dose: Not Given Folic Acid (Folic Acid) 1 mg PO DAILY [facility] Last Admin: 04/17/17 10:45 Dose: Not Given Gabapentin (Neurontin) 300 mg PO TID [facility] PRN Reason: Protocol Last Admin: 04/17/17 13:03 Dose: Not Given Heparin Sodium (Porcine) (Heparin) 5,000 units SC Q8 [facility] PRN Reason: Protocol Last Admin: 04/17/17 12:59 Dose: 5,000 units Hydromorphone HCl (Dilaudid) 0.5 mg IVP Q3 PRN PRN Reason: Pain, severe (8-10) Last Admin: 04/17/17 05:09 Dose: 0.5 mg Metronidazole (Flagyl) 500 mg in 100 mls @ 100 mls/hr IVPB Q8 [facility] PRN Reason: Protocol Last Admin: 04/17/17 12:59 Dose: 100 mls/hr Meropenem/Sodium Chloride (Meropenem 1g/Ns 100ml Ivpb) 1 gm in 100 mls @ 100 mls/hr IVPB Q8 [facility] PRN Reason: Protocol Stop: 04/25/17 09:38 Last Admin: 04/17/17 13:02 Dose: 100 mls/hr Vancomycin HCl (Vancomycin 1gm) 1 gm in 250 mls @ 167 mls/hr IVPB Q12H [facility] PRN Reason: Protocol Stop: 04/25/17 09:46 Last Admin: 04/17/17 10:49 Dose: 167 mls/hr Potassium Chloride 20 meq/ (Dextrose/Sodium Chloride) 1,010 mls @ 95 mls/hr IV .[id number] [facility] Chromium/Copper/Manganese/Zinc 1 ml/ Multivitamins/Vitamin C 10 ml/ Amino Acids/ Electrolytes/Dextrose 1,011 mls @ 42.125 mls/hr IV .Q24H [facility] Stop: 04/18/17 17:59 Fat Emulsion Intravenous (Intralipid 20%) 250 mls @ 21 mls/hr IV MWF@1800 [facility] Potassium Chloride (Potassium Chloride 10 Meq/100 Ml) 10 meq in 100 mls @ 50 mls/hr IVPB Q1H [facility] Stop: 04/17/17 14:59 Last Admin: 04/17/17 13:18 Dose: 50 mls/hr Lidocaine (Lidoderm) 1 ea TD 2200 [facility] Last Admin: 04/16/17 23:11 Dose: Not Given Metoprolol Tartrate (Lopressor) 25 mg PO BID [facility] Last Admin: 04/17/17 10:46 Dose: Not Given Mirtazapine (Remeron) 15 mg PO HS [facility] Last Admin: 04/16/17 23:11 Dose: Not Given Nicotine (Nicoderm Cq) 1 patch TD DAILY [facility] Last Admin: 04/17/17 10:00 Dose: 1 patch Ondansetron HCl (Zofran Inj) 4 mg IVP Q4H PRN PRN Reason: Nausea/Vomiting Last Admin: 04/16/17 20:15 Dose: 4 mg Oxycodone/Acetaminophen (Percocet 10/325 Mg Tab) 1 tab PO Q4H PRN PRN Reason: Pain, moderate (4-7) Last Admin: 04/15/17 05:06 Dose: 1 tab Pantoprazole Sodium (Protonix Inj) 40 mg IVP DAILY [facility] Last Admin: 04/17/17 10:35 Dose: 40 mg Polyethylene Glycol (Miralax) 17 gm PO DAILY [facility] Last Admin: 04/17/17 10:46 Dose: Not Given Ropinirole HCl (Requip) 1 mg PO AMHS [facility] Last Admin: 04/17/17 10:47 Dose: Not Given Tamsulosin HCl (Flomax) 0.4 mg PO DAILY [facility] Last Admin: 04/17/17 10:45 Dose: Not Given Venlafaxine HCl (Effexor) 37.5 mg PO DAILY [facility] Last Admin: 04/17/17 10:45 Dose: Not Given - Labs Labs: 04/17/17 10:15 04/17/17 11:20 PT 12.5 SECONDS (9.4-12.5) 04/09/17 15:35 INR 1.09 (0.93-1.08) H 04/09/17 15:35 APTT 32.7 Seconds (25.1-36.5) 04/09/17 15:35 - Constitutional Appears: Cachectic - Head Exam Head Exam: ATRAUMATIC, NORMOCEPHALIC - Eye Exam Eye Exam: EOMI - ENT Exam ENT Exam: Mucous Membranes Dry Additional comments: NGT in place - Respiratory Exam Respiratory Exam: Respiratory Distress, NORMAL BREATHING PATTERN - Cardiovascular Exam Cardiovascular Exam: Tachycardia, REGULAR RHYTHM - GI/Abdominal Exam GI & Abdominal Exam: Soft. absent: Distended, Tenderness Additional comments: incision CDI - Neurological Exam Neurological Exam: Alert, Awake - Psychiatric Exam Psychiatric exam: Normal Affect - Skin Skin Exam: Dry, Warm
--- NOTE | 2017-04-17 16:20 | CP.PCM.PN ---
Subjective - Date & Time of Evaluation Date of Evaluation: 04/17/17 Time of Evaluation: 08:50 - Subjective Subjective: Patient is lethargic on a ventimask, n ofevers. Objective - Vital Signs/Intake and Output Vital Signs (last 24 hours): Temp Pulse Resp BP Pulse Ox 98.4 F 127 H 33 H 114/83 95 04/16/17 16:00 04/16/17 19:09 04/17/17 04:22 04/16/17 19:09 04/16/17 16:00 Intake and Output: 04/16/17 04/17/17 18:59 06:59 Intake Total 240 Output Total 250 Balance -10 - Medications Medications: Current Medications Albuterol/Ipratropium (Duoneb 3 Mg/0.5 Mg (3 Ml) Ud) 3 ml IH O4ERCSH [facility] Last Admin: 04/17/17 04:03 Dose: 3 ml Carbamazepine (Tegretol) 100 mg PO BID [facility] PRN Reason: Protocol Last Admin: 04/16/17 19:10 Dose: Not Given Folic Acid (Folic Acid) 1 mg PO DAILY [facility] Last Admin: 04/16/17 11:15 Dose: Not Given Gabapentin (Neurontin) 300 mg PO TID [facility] PRN Reason: Protocol Last Admin: 04/16/17 19:09 Dose: Not Given Heparin Sodium (Porcine) (Heparin) 5,000 units SC Q8 [facility] PRN Reason: Protocol Last Admin: 04/17/17 05:09 Dose: 5,000 units Hydromorphone HCl (Dilaudid) 0.5 mg IVP Q3 PRN PRN Reason: Pain, severe (8-10) Last Admin: 04/17/17 05:09 Dose: 0.5 mg Metronidazole (Flagyl) 500 mg in 100 mls @ 100 mls/hr IVPB Q8 [facility] PRN Reason: Protocol Last Admin: 04/16/17 23:09 Dose: 100 mls/hr Meropenem/Sodium Chloride (Meropenem 1g/Ns 100ml Ivpb) 1 gm in 100 mls @ 100 mls/hr IVPB Q8 [facility] PRN Reason: Protocol Stop: 04/25/17 09:38 Last Admin: 04/17/17 00:37 Dose: 100 mls/hr Vancomycin HCl (Vancomycin 1gm) 1 gm in 250 mls @ 167 mls/hr IVPB Q12H [facility] PRN Reason: Protocol Stop: 04/25/17 09:46 Last Admin: 04/17/17 01:55 Dose: 167 mls/hr Potassium Chloride 20 meq/ (Dextrose/Sodium Chloride) 1,010 mls @ 95 mls/hr IV .[id number] [facility] Potassium Phosphate 15 mmole/ (Dextrose) 255 mls @ 42.5 mls/hr IVPB ONCE ONE Stop: 04/17/17 10:45 Lidocaine (Lidoderm) 1 ea TD 2200 [facility] Last Admin: 04/16/17 23:11 Dose: Not Given Metoprolol Tartrate (Lopressor) 25 mg PO BID [facility] Last Admin: 04/16/17 19:09 Dose: 25 mg Mirtazapine (Remeron) 15 mg PO HS [facility] Last Admin: 04/16/17 23:11 Dose: Not Given Nicotine (Nicoderm Cq) 1 patch TD DAILY [facility] Last Admin: 04/16/17 11:21 Dose: 1 patch Ondansetron HCl (Zofran Inj) 4 mg IVP Q4H PRN PRN Reason: Nausea/Vomiting Last Admin: 04/16/17 20:15 Dose: 4 mg Oxycodone/Acetaminophen (Percocet 10/325 Mg Tab) 1 tab PO Q4H PRN PRN Reason: Pain, moderate (4-7) Last Admin: 04/15/17 05:06 Dose: 1 tab Pantoprazole Sodium (Protonix Inj) 40 mg IVP DAILY [facility] Polyethylene Glycol (Miralax) 17 gm PO DAILY [facility] Last Admin: 04/16/17 19:09 Dose: 17 gm Ropinirole HCl (Requip) 1 mg PO AMHS [facility] Last Admin: 04/16/17 23:11 Dose: Not Given Tamsulosin HCl (Flomax) 0.4 mg PO DAILY [facility] Last Admin: 04/16/17 11:15 Dose: Not Given Venlafaxine HCl (Effexor) 37.5 mg PO DAILY [facility] Last Admin: 04/16/17 11:16 Dose: Not Given - Labs Labs: 04/17/17 04:30 04/17/17 04:30 PT 12.5 SECONDS (9.4-12.5) 04/09/17 15:35 INR 1.09 (0.93-1.08) H 04/09/17 15:35 APTT 32.7 Seconds (25.1-36.5) 04/09/17 15:35 - Constitutional Appears: Other (lethargic) - Head Exam Head Exam: NORMAL INSPECTION - Neck Exam Neck Exam: absent: Meningismus - Respiratory Exam Respiratory Exam: Decreased Breath Sounds - Cardiovascular Exam Cardiovascular Exam: +S1, +S2 - GI/Abdominal Exam GI & Abdominal Exam: Soft. absent: Tenderness Additional comments: surgical site clean and intact Assessment and Plan - Assessment and Plan (Free Text) Plan: Assessment SIRS, R/O sepsis from HCAP, R/O intra-abdominal infection in this patient with SMA syndrome S/P gastrojejunostomy POD #7 HTN dyslipidemia CVA with left sided weakness chronic back pain S/P left knee surgery Plan Will continue IV Vancomycin and Merrem pending final culture results (blood cx are negative x 1 day); will follow up CT scan of the abdomen and pelvis once it is done will monitor clinically overall prognosis is poor <Adrianna Ro - Last Filed: 04/17/17 04:17> History of Present Illness - History of Present Illness History of Present Illness: ICU Consult Note for Dr. 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 Patient is s/p open gastrojejunostomy POD #6. Since then, patient has continued to have pain with nausea and vomiting despite pain medications. Overnight patient was noted to become altered and hypoxic with spO2 of 79% on 50L. Patient was suctioned and repositioned and high flow was placed back on 60L and O2 sat improved to 90%. STAT ABG showed hypoxia. Patient was lethargic and not following commands or answering questions appropriately. STAT CXR and labs were drawn and patient was transferred to ICU for close monitoring. Complete ROS unobtainable. PMHx: HTN, HLD, CVA with L side weakness (2014), chronic back pain on opioid at home, severe candidal esophagitis, duodenal AVM PSurgHx: L knee surgery Meds: pls see MAR ALL: Sulfa SocHx: wheelchair bound, denies EtOH or drug use. Active smoker 1.5 pack per day x 35 years. Lives with son
--- NOTE | 2017-04-17 19:12 | PN ---
DATE: 04/17/2017 REASON FOR THE CONSULTATION: Status post small bowel obstruction, status post gastrojejunostomy. SUBJECTIVE: Events last night noted, patient had a postop day 6 gastrojejunostomy, altered mental status, hypoxemic, moved to ICU, managed on noninvasive ventilator. OBJECTIVE: GENERAL: Not in apparent distress, on noninvasive ventilator. VITAL SIGNS: As follows: Temperature afebrile, heart rate 83, blood pressure 121/70. HEENT: PERRLA. Extraocular muscles intact. NECK: Supple. No carotid bruit or thyromegaly. CHEST: Clear to auscultation. HEART: S1, S2 regular. ABDOMEN: Soft. EXTREMITIES: Clubbing and cyanosis negative. LABORATORY DATA: Blood workup as follows: WBC hemoglobin 7, hematocrit 21.8, platelet count 374. Chemistry shows sodium 140, potassium 3.3, chloride 104, carbon dioxide 32, anion gap of 12, BUN , creatinine 0.5. IMPRESSION: Altered mental status; hypoxemic, on noninvasive ventilator; rule out gastrointestinal bleed; anemia; status post gastrojejunostomy; history of opioid use; small bowel obstruction; superior mesenteric artery syndrome; rule out sepsis. RECOMMENDATIONS: Managed on noninvasive ventilator, broad-spectrum antibiotic, cautious hydration, DVT prophylaxis, monitor H and H, if it goes below 7, consider packed RBC transfusion, keep hemoglobin 7. We will follow with you. Overall patient's condition is critical. Long-term prognosis is guarded. Thank you, Dr. Lantigua, for providing us the opportunity in taking care of patient, Brandyn Wang. Velvet Bey MD
[2017-04-17] MEDS: Fat Emulsion 20% IV 250 ML IV SCH (20:55)
[2017-04-18] MEDS: Albuterol-Ipratrop 3 mg / 0.5 (3 ml) UD IH SCH ×5 (00:44→21:03)
[2017-04-18] MEDS: HYDROmorphone 0.5 mg/0.5 ml ISec IVP PRN ×5 (01:39→16:36)
--- NOTE | 2017-04-18 01:39 | PN ---
DATE: 04/17/2017 PULMONARY CRITICAL CARE PROGRESS NOTE REFERRING PHYSICIAN: Radha Lantigua MD. SUBJECTIVE: He is moved to intensive care unit. Nasogastric tube was placed and had coffee-ground secretion, more than a liter or so suctioned. Feels much better after that. Breathing is also better. Cough is better. Has abdominal pain. No leg pain or leg swelling. OBJECTIVE: GENERAL: Lying in the bed, head at 45 degree, more comfortable than yesterday. VITAL SIGNS: Temperature 98, heart rate 104, respiratory rate 25, blood pressure 101/70, pulse ox 100% on high-flow nasal cannula. HEENT: Moist mucous membrane. Crowded airway. NECK: Supple. No JVD. LUNGS: Crackles and rhonchi. HEART: S1 and S2. ABDOMEN: Decreased distention. Has bowel sound. Tender to touch. Incision site looks okay. EXTREMITIES: There is no edema. NEUROLOGIC: Awake, alert, and follows simple commands. MEDICATIONS: He is on IV TPN. Dilaudid is 0.5 mg q. 3 hour p.r.n., DuoNeb q. 4 hours, Effexor 37.5 mg daily, Flagyl 500 mg q. 8 hours, Flomax 0.4 mg daily, folic acid 1 mg daily, heparin 5000 units subcutaneously q. 8 hours, Intralipid 20% 21 mL per hour, Lidoderm patch to affected area, metoprolol tartrate 25 mg twice a day, meropenem 1 g IV q. 8 hours, MiraLax 17 g daily, Neurontin 300 mg 3 times a day, Nicoderm patch daily, Percocet 10/325 one tab q. 4 hours p.r.n., potassium supplement with IV fluid, Protonix 40 mg daily, Remeron 15 mg at bedtime, Requip 1 mg at morning and at bedtime, Tegretol 100 mg twice a day, vancomycin 1 g IV q. 12 hours, Zofran p.r.n. LABORATORY DATA: Hemoglobin 7.0, hematocrit 21.8, WBC 6.3, platelets is 374. Blood gases showed pH 7.55, pCO2 33, O2 of 67, on high-flow oxygen. Sodium 144, potassium 3.3, chloride 104, bicarbonate of 32, BUN 23, creatinine 0.5, glucose 123, calcium 8.4, phosphorus 2.3. AST 18, ALT 15, alkaline phosphatase 133, albumin 2.7. Blood cultures; one out of two cultures has yeast. Chest x-ray done today shows multifocal right lower lobe and left lower lobe presumed pneumonia, small pleural effusion. IMPRESSION AND PLAN: Multi-lobe aspiration pneumonia, superior mesenteric artery syndrome, status post gastrojejunostomy, having intestinal obstruction with gastric distension, also chronic lung disease, history of restless legs syndrome. Case discussed with nursing staff. Patient has nasogastric tube on suction. Also started total parenteral nutrition. Gastric prophylaxis and sequential compression stockings to lower extremities. We will discontinue sedative and non-important medications. Continue GI and Surgical followup. Further aspiration precaution, antibiotics. Followup arterial blood gases, chest x-ray, complete blood count, and comprehensive metabolic panel in the morning. Critical care time, more than 35 minutes. Thank you and will follow with you. Velvet Castillo MD
[2017-04-18 02:19] LABS: HEMOGLOBIN 8.6 g/dL (14.0-18.0); MEAN CELL VOLUME 90.2 fl (80.0-105.0); MEAN CORPUSCULAR HGB CONC 32.1 g/dl (31.0-37.0); MEAN PLATELET VOLUME 9.8 fl (7.0-11.0); RBC 2.97 10^6/uL (3.5-6.1); RED CELL DISTRIBUTION WIDTH 17.6 % (11.5-14.5); WHITE BLOOD COUNT 6.9 10^3/ul (4.5-11.0)
--- NOTE | 2017-04-18 06:28 | PN ---
DATE: SUBJECTIVE: The patient is 61-year-old male. The patient seen and examined on the bedside. Complaining about abdominal pain. The patient is postoperative day #6 for gastrojejunostomy, altered mental status, hypoxia, moved to ICU, now we are managing on noninvasive ventilator because the patient DNR and DNI. No fever. No chills. No headache. No dizziness. PHYSICAL EXAMINATION: VITAL SIGNS: Temperature 98.6, heart rate 83, blood pressure 120/70. HEENT: Head is normocephalic and atraumatic. Eyes, PERRLA. Extraocular muscles are intact. Conjunctivae are clear. Nose is patent. Mucous membranes are moist. NECK: Supple. No carotid bruits, JVD or thyromegaly. CHEST: Bilaterally symmetrical. HEART: S1 and S2 positive. LUNGS: Clear to auscultation. ABDOMEN: Tender. Has dressing. EXTREMITIES: No edema. No cyanosis. NEUROLOGIC: The patient is awake and alert, but getting episodes of confusion. MEDICATIONS: Dilaudid, DuoNeb, Flagyl, Flomax, folic acid, heparin, fat emulsion, Lidoderm, Lopressor, meropenem, Miralax, Nicoderm, Percocet, Remeron, vancomycin, Zofran. LABS: White blood cell is 9.3, hemoglobin 7.0, hematocrit 21.8, platelets 374. Sodium 144, potassium 3.3, BUN 23, creatinine 0.5, glucose 104. ASSESSMENT AND PLAN: Mr. Brandyn Wang is a 61-year-old male with anemia, hypokalemia, renal insufficiency, electrolyte imbalance, abnormal liver function test, proteinuria, ketonuria, hematuria, seen by Dr. Quoc Lester, Infectious Disease. The patient is on Ventimask, history of hypertension, hypercholesterolemia, cerebrovascular accident with left sided weakness, chronic back pain on opioid dependency at home, has SMA syndrome, status post open end gastrojejunostomy, postoperative day #6. Patient has constant pain and nausea and vomiting despite pain medication. Overnight, patient became altered mental status hypoxic, oxygenation was dropping. Patient was suctioned. Repositioned and high-flow oxygen was given on 50 liter with oxygen saturation improved to 90%, stat chest x-rays done, transferred the patient to ICU for close monitoring. The patient has history of chronic back pain, getting antibiotics from Dr. Lester. Patient is wheel chair bound. Seen by wave guide assembler, GI doctor Wil Jarvis, surgeon Dr. Everton Morocho. The patient is n.p.o. , getting IV fluid, strict urine and nasogastric tube output measurements, nasogastric tube to low intermittent suction, adding TPN. Patient is getting , Gastrointestinal and deep venous thrombosis prophylaxes. Repeat labs. We will followup. Radha Lantigua MD [facility]
[2017-04-18] MEDS: Meropenem 1g/NS 100mL IVPB 1 GM/100 ML PIGGYBACK IVPB SCH ×3 (06:30→21:33)
[2017-04-18] MEDS: metroNIDAZOLE IV 500 mg/100 ml 500 MG/100 ML BAG IVPB SCH ×3 (06:30→21:32)
[2017-04-18 06:48] LABS: EOS # 0.1 (0.0-0.7); EOS % 0.7 % (1.5-5.0); GRAN # 5.08 (1.4-6.5); GRAN % 67.2 % (50.0-68.0); HEMOGLOBIN 9.1 g/dL (14.0-18.0); LYMPH # 1.5 (1.2-3.4); LYMPH % 20.2 % (22.0-35.0); MEAN CELL VOLUME 90.1 fl (80.0-105.0); MEAN CORPUSCULAR HEMOGLOBIN 29.2 pg (25.0-35.0); MEAN CORPUSCULAR HGB CONC 32.4 g/dl (31.0-37.0); MEAN PLATELET VOLUME 9.5 fl (7.0-11.0); MONO # 0.9 (0.1-0.6); MONO % 11.9 % (1.0-6.0); RBC 3.12 10^6/uL (3.5-6.1); RED CELL DISTRIBUTION WIDTH 17.9 % (11.5-14.5); WHITE BLOOD COUNT 7.6 10^3/ul (4.5-11.0)
--- NOTE | 2017-04-18 07:26 | CP.CCUPN ---
<LainasafiaAstrid frederick - Last Filed: 04/18/17 09:53> CCU Subjective - Physician Review Subjective (Free Text): 04/18/17 07:59 No overnight acute events. NGT in place producing dark greenish drainage. Afebrile. Patient saturating well with high flow at fio2 of 50%. Denies abdominal pain, denies diarrhea fever or chills. Critical Care Time Spent (in minutes): 45 CCU Objective - Vital Signs / Intake & Output Vital Signs (Last 4 hours): Vital Signs Resp 04/18/17 07:12 23 O2 saturation 100 of high flow at fio2 of 50%. Intake and Output (Last 8hrs): Intake & Output 04/17/17 04/18/17 04/18/17 22:59 06:59 14:59 Intake Total 550 Output Total 1600 Balance -1050 Intake: IV 550 right arm 550 Blood Product 0 Red Blood Cells Cpd As1 0 Lr Unit [id number] Red Blood Cells Cpd As1 0 Lr Unit [id number] Output: Urine 600 Urine, Voided 600 Other 1000 - Physical Exam Head: Positive for: Atraumatic, Normocephalic, Other (bi-temporal wasting noted) Pupils: Positive for: PERRL Extroacular Muscles: Positive for: EOMI Conjunctiva: Positive for: Normal Ears: Positive for: Normal Mouth: Positive for: Other (poor dentitions, dry oral mucosa, uvula/tongue are midline, no exudate/lesions,) Pharnyx: Positive for: Normal Nose (External): Positive for: Atraumatic Nose (Internal): Positive for: Normal Inspection, Other (ngt) Neck: Positive for: Normal Range of Motion, Trachea Midline. Negative for: MIDLINE TENDERNESS Respiratory/Chest: Positive for: Clear to Auscultation, Good Air Exchange, Other (CTA b/l, no w/r/r, no accessory muscle use noted, no tachypenia). Negative for: Respiratory Distress, Accessory Muscle Use Cardiovascular: Positive for: Regular Rate and Rhythm, Normal S1, S2. Negative for: Murmurs Abdomen: Positive for: Tenderness, Normal Bowel Sounds, Scars (surgical scar is intact.), Other (+ mild mid abd tenderness, no hurd's sign, no mcburney's point tenderness, no rebound/guarding/rigidity). Negative for: Distention, Peritoneal Signs Back: Negative for: CVA Tenderness Upper Extremity: Positive for: Normal Inspection, Normal ROM, NORMAL PULSES, Neurovascularly Intact, Other (decr strength to left arm (prior CVA)). Negative for: Cyanosis, Edema Lower Extremity: Positive for: Normal Inspection, NORMAL PULSES, Normal ROM, Neurovascularly Intact, Capillary Refill < 2 s, Other (decr ROM/strength 4+/5 left leg; + intermittent spasms noted to b/l lower ext; neurovasc intact b/l). Negative for: Edema Neurological: Positive for: GCS=15 Skin: Positive for: Warm, Dry, Normal Color, Other (cap refill~1 sec, no ulcerations, no petechiae). Negative for: Rashes Psychiatric: Positive for: Alert, Oriented x 3, Normal Insight, Normal Concentration - Medications Active Medications: Active Medications Generic Name Dose Route Start Last Admin Trade Name Freq PRN Reason Stop Dose Admin Albuterol/Ipratropium 3 ml 04/16/17 15:30 04/18/17 07:06 Duoneb 3 Mg/0.5 Mg (3 Ml) Ud IH 3 ml [id number] DOMONIQUE Administration Carbamazepine 100 mg 04/02/17 23:00 04/17/17 18:10 Tegretol PO Not Given BID [facility] Protocol Folic Acid 1 mg 04/03/17 10:00 04/17/17 10:45 Folic Acid PO Not Given DAILY [facility] Heparin Sodium (Porcine) 5,000 units 04/11/17 14:00 04/18/17 06:29 Heparin SC 5,000 units Q8 DOMONIQUE Administration Protocol Hydromorphone HCl 0.5 mg 04/15/17 22:15 04/18/17 06:29 Dilaudid IVP 0.5 mg Q3 PRN Administration Pain, severe (8-10) Metronidazole 500 mg in 100 mls @ 100 mls/hr 04/16/17 14:00 04/18/17 06:30 Flagyl IVPB 100 mls/hr Q8 [facility] Administration Protocol Meropenem/Sodium Chloride 1 gm in 100 mls @ 100 mls/hr 04/16/17 09:37 06:30 Meropenem 1g/Ns 100ml Ivpb IVPB 04/25/17 09:38 100 mls/hr Q8 DOMONIQUE Administration Protocol Vancomycin HCl 1 gm in 250 mls @ 167 mls/hr 04/16/17 09:45 04/17/17 21:48 Vancomycin 1gm IVPB 04/25/17 09:46 167 mls/hr Q12H DOMONIQUE Administration Protocol Potassium Chloride 20 meq/ 1,010 mls @ 95 mls/hr 04/17/17 00:29 Dextrose/Sodium Chloride IV .[id number] [facility] Chromium/Copper/Manganese/Zinc 1,011 mls @ 42.125 mls/hr 04/17/17 18:00 04/17 20:56 1 ml/ Multivitamins/Vitamin C IV 04/18/17 17:59 42.125 mls/hr 10 ml/ Amino Acids/ .Q24H ONE Administration Electrolytes/Dextrose Fat Emulsion Intravenous 250 mls @ 21 mls/hr 04/17/17 18:00 04/17/17 20:55 Intralipid 20% IV 21 mls/hr [id number] DOMONIQUE Administration Lidocaine 1 ea 04/05/17 22:00 04/17/17 21:46 Lidoderm TD 1 ea 2200 [facility] Administration Metoprolol Tartrate 25 mg 04/16/17 18:00 04/17/17 18:09 Lopressor PO Not Given BID [facility] Mirtazapine 15 mg 04/02/17 23:00 04/17/17 21:02 Remeron PO Not Given HS [facility] Nicotine 1 patch 04/03/17 15:30 04/17/17 10:00 Nicoderm Cq TD 1 patch DAILY [facility] Administration Ondansetron HCl 4 mg 04/15/17 12:07 04/16/17 20:15 Zofran Inj IVP 4 mg Q4H PRN Administration Nausea/Vomiting Oxycodone/Acetaminophen 1 tab 04/12/17 12:33 04/15/17 05:06 Percocet 10/325 Mg Tab PO 1 tab Q4H PRN Administration Pain, moderate (4-7) Pantoprazole Sodium 40 mg 04/18/17 10:00 Protonix Inj IVP Q12 [facility] Polyethylene Glycol 17 gm 04/16/17 12:45 04/17/17 10:46 Miralax PO Not Given DAILY [facility] Tamsulosin HCl 0.4 mg 04/03/17 10:00 04/17/17 10:45 Flomax PO Not Given DAILY DOMONIQUE - Patient Studies Lab Studies: Microbiology Studies 04/17/17 03:59 Blood Culture - Preliminary Blood NO GROWTH AFTER 24 HOURS 04/17/17 03:45 Blood Culture - Preliminary Blood NO GROWTH AFTER 24 HOURS 04/16/17 01:20 Blood Culture - Preliminary Blood NO GROWTH AFTER 48 HOURS 04/16/17 01:55 S.aureus & Coag-Neg Staph PNA FISH - Final Blood Blood Culture - Preliminary Yeast Species Gram Stain - Final Lab Studies 04/18/17 04/18/17 04/17/17 Range/Units 06:40 00:15 11:20 WBC 7.6 6.9 (4.5-11.0) 10^3/ul RBC 3.12 L 2.97 L (3.5-6.1) 10^6/uL Hgb 9.1 L 8.6 L (14.0-18.0) g/dL Hct 28.1 L 26.8 L (42.0-52.0) % MCV 90.1 90.2 (80.0-105.0) fl MCH 29.2 29.0 (25.0-35.0) pg MCHC 32.4 32.1 (31.0-37.0) g/dl RDW 17.9 H 17.6 H (11.5-14.5) % Plt Count 359 353 (120.0-450.0) 10^3/uL MPV 9.5 9.8 (7.0-11.0) fl Gran % 67.2 (50.0-68.0) % Lymph % (Auto) 20.2 L (22.0-35.0) % [place] % (Auto) 11.9 H (1.0-6.0) % Eos % (Auto) 0.7 L (1.5-5.0) % Baso % (Auto) 0.0 (0.0-3.0) % Gran # 5.08 (1.4-6.5) Lymph # (Auto) 1.5 (1.2-3.4) [place] # (Auto) 0.9 H (0.1-0.6) Eos # (Auto) 0.1 (0.0-0.7) Baso # (Auto) 0.00 (0.0-2.0) K/mm3 Sodium 144 (132-148) mmol/L Potassium 3.3 L (3.6-5.0) mmol/L Chloride 104 (98-107) mmol/L Carbon Dioxide 32 (21-33) mmol/L Anion Gap 12 (10-20) BUN 23 H (7-21) mg/dL Creatinine 0.5 L (0.8-1.5) mg/dl Est GFR ( Amer) > 60 Est GFR (Non-Af Amer) > 60 Random Glucose 104 (70-110) mg/dL Calcium 8.4 (8.4-10.5) mg/dL HIV 1&2 Ag/Ab, 4th Gen (Nonreactive) Blood Type Antibody Screen Crossmatch BBK History Checked 04/17/17 04/17/17 04/16/17 Range/Units 10:15 10:15 06:30 WBC 6.3 (4.5-11.0) 10^3/ul RBC 2.41 L (3.5-6.1) 10^6/uL Hgb 7.0 L (14.0-18.0) g/dL Hct 21.8 L (42.0-52.0) % MCV 90.5 (80.0-105.0) fl MCH 29.0 (25.0-35.0) pg MCHC 32.1 (31.0-37.0) g/dl RDW 18.5 H (11.5-14.5) % Plt Count 374 (120.0-450.0) 10^3/uL MPV 9.6 (7.0-11.0) fl Gran % 72.3 H (50.0-68.0) % Lymph % (Auto) 14.2 L (22.0-35.0) % [place] % (Auto) 13.2 H (1.0-6.0) % Eos % (Auto) 0.3 L (1.5-5.0) % Baso % (Auto) 0.0 (0.0-3.0) % Gran # 4.53 (1.4-6.5) Lymph # (Auto) 0.9 L (1.2-3.4) [place] # (Auto) 0.8 H (0.1-0.6) Eos # (Auto) 0.0 (0.0-0.7) Baso # (Auto) 0.00 (0.0-2.0) K/mm3 Sodium (132-148) mmol/L Potassium (3.6-5.0) mmol/L Chloride (98-107) mmol/L Carbon Dioxide (21-33) mmol/L Anion Gap (10-20) BUN (7-21) mg/dL Creatinine (0.8-1.5) mg/dl Est GFR ( Amer) Est GFR (Non-Af Amer) Random Glucose (70-110) mg/dL Calcium (8.4-10.5) mg/dL HIV 1&2 Ag/Ab, 4th Gen Nonreactive (Nonreactive) Blood Type O NEGATIVE Antibody Screen Negative Crossmatch See Detail BBK History Checked Patient has bt Laboratory Results - last 24 hr 04/16/17 04/17/17 04/17/17 06:30 10:15 10:15 WBC 6.3 RBC 2.41 L Hgb 7.0 L Hct 21.8 L MCV 90.5 MCH 29.0 MCHC 32.1 RDW 18.5 H Plt Count 374 MPV 9.6 Gran % 72.3 H Lymph % (Auto) 14.2 L [place] % (Auto) 13.2 H Eos % (Auto) 0.3 L Baso % (Auto) 0.0 Gran # 4.53 Lymph # (Auto) 0.9 L [place] # (Auto) 0.8 H Eos # (Auto) 0.0 Baso # (Auto) 0.00 Sodium Potassium Chloride Carbon Dioxide Anion Gap BUN Creatinine Est GFR ( Amer) Est GFR (Non-Af Amer) Random Glucose Calcium HIV 1&2 Ag/Ab, 4th Gen Nonreactive Blood Type O NEGATIVE Antibody Screen Negative Crossmatch See Detail BBK History Checked Patient has bt 04/17/17 04/18/17 04/18/17 11:20 00:15 06:40 WBC 6.9 7.6 RBC 2.97 L 3.12 L Hgb 8.6 L 9.1 L Hct 26.8 L 28.1 L MCV 90.2 90.1 MCH 29.0 29.2 MCHC 32.1 32.4 RDW 17.6 H 17.9 H Plt Count 353 359 MPV 9.8 9.5 Gran % 67.2 Lymph % (Auto) 20.2 L [place] % (Auto) 11.9 H Eos % (Auto) 0.7 L Baso % (Auto) 0.0 Gran # 5.08 Lymph # (Auto) 1.5 [place] # (Auto) 0.9 H Eos # (Auto) 0.1 Baso # (Auto) 0.00 Sodium 144 Potassium 3.3 L Chloride 104 Carbon Dioxide 32 Anion Gap 12 BUN 23 H Creatinine 0.5 L Est GFR ( Amer) > 60 Est GFR (Non-Af Amer) > 60 Random Glucose 104 Calcium 8.4 HIV 1&2 Ag/Ab, 4th Gen Blood Type Antibody Screen Crossmatch BBK History Checked Results Reviewed to Date: Yes Critical Care Progress Note - Ventilator Checklist Head of Bed 30 Degrees: Yes - Extremities/Vascular Does the Patient have a Central Venous Catheter?: No Does the Patient have a Chang Catheter?: Yes Does the Patient need a Chang Catheter?: Yes Catheter Insertion Criteria: Need for accurate measurement of output in critically ill patient - Prophylaxis GI Prophylaxis GI: PPI - Prophylaxis DVT Prophylaxis DVT: SCDs - Nutrition Nutrition: Nutrition Category Date Time Status NPO Diet [DIET] Diets 02/ Lunch Ordered TPN Assessment/Plan - Assessment and Plan (Free Text) Assessment: Patient is a 61yo male with PMHs of HTN, HLD, CVA with L side weakness (2014), chronic back pain on opioid at home who was admitted for SMA syndrome. Patient is s/p open gastrojejunostomy POD #8. Transferred to ICU due to hypoxia. Since transfer, patient has been sa Plan: Neuro: history of cva with left sided weakness. Mental status currently at baseline. Cardiovascular: Hx HTN, HLD Pt on Lopressor Maintain MAP>65 Cardio following Pulm: Hypoxia likely secondary to aspiration PNA in light of patient continually vomiting- CTA: neg for PE hypoxia resolved Patient is DNR/DNI, saturating well on high flow oxygen. Aspiration precaution, HOB elevated to 45 degrees Duoneb q4 domonique Maintain spO2>92% GI: s/p gastrojejunostomy POD #8 due to SMA syndrome - NPO as per surgical team, on TPN s/p NGT with dark greenish drainage Nutritional status to be determined by surgery/Gi team. Monitor BM Zofran prn nausea on ppi for gi prophylaxis. Heme: Acute on chronic anemia- s/p 2 units of prbc hgb of 9.1 Continue to monitor h/h Nephro: Will continue to monitor electrolytes and replace as needed Strict Is and Os Maintain euvolemia ID: No leukocytosis Lactate 1.6 on ABG PCT 0.77 On Merrem, Flagyl and Vanc ID following Endo: Maintain euglycemia. DVT ppx: Heparin SC Patient is hemodynamically stable, no tachycardia, not febrile, and will be transferred to [facility]. Patient seen, examined and case discussed with attending. - Date & Time Date: 04/18/17 Time: 08:25 <Bob Gutierrez - Last Filed: 04/18/17 10:39> CCU Objective - Vital Signs / Intake & Output Vital Signs (Last 4 hours): Vital Signs Pulse Resp BP Pulse Ox 04/18/17 10:04 80 103/59 L 04/18/17 09:45 104/54 L 04/18/17 09:44 89 20 96 04/18/17 09:40 103 H 22 96 04/18/17 09:30 84 22 92/59 L 98 04/18/17 09:20 82 21 99 04/18/17 09:15 81 18 101/60 100 04/18/17 09:10 79 20 99 04/18/17 09:00 78 19 89/57 L 100 04/18/17 08:50 93 H 20 99 04/18/17 08:45 73 17 94/59 L 100 04/18/17 08:40 79 19 99 04/18/17 08:30 81 15 90/59 L 100 04/18/17 08:20 77 17 99 04/18/17 08:15 78 17 107/63 99 04/18/17 08:10 83 17 95 04/18/17 08:00 96 H 26 H 103/67 94 L 04/18/17 07:50 94 H 30 H 97 04/18/17 07:45 96 H 31 H 111/82 97 04/18/17 07:40 97 H 22 96 04/18/17 07:30 92 H 21 115/67 98 04/18/17 07:20 95 H 21 97 04/18/17 07:15 95 H 21 105/70 98 04/18/17 07:12 23 04/18/17 07:10 99 H 57 H 100 04/18/17 07:00 93 H 19 107/77 100 04/18/17 06:50 97 H 24 100 04/18/17 06:45 98 H 111/76 100 04/18/17 06:40 101 H 100 Intake and Output (Last 8hrs): Intake & Output 04/17/17 04/18/17 04/18/17 22:59 06:59 14:59 Intake Total 550 1340 Output Total 1600 3400 Balance -1050 -2060 Intake: IV 550 right arm 550 Oral 60 Tube Feeding 0 TPN/PPN 420 Blood Product 0 0 Red Blood Cells Cpd As1 0 Lr Unit [id number] Red Blood Cells Cpd As1 0 Lr Unit [id number] Lipid 210 Albumin 0 Other 650 Output: Drainage 2450 Left Nare Nasogastric 2450 Tube Urine 600 950 Urine, Voided 600 950 Stool 0 Urine/Stool Mix 0 Emesis 0 Oral Regurgitation 0 Other 1000 0 Other: # Voids Urine, Voided 0 # Bowel Movements 0 - Medications Active Medications: Active Medications Generic Name Dose Route Start Last Admin Trade Name Freq PRN Reason Stop Dose Admin Albuterol/Ipratropium 3 ml 04/18/17 14:00 Duoneb 3 Mg/0.5 Mg (3 Ml) Ud IH [id number] DOMONIQUE Carbamazepine 100 mg 04/02/17 23:00 04/18/17 10:12 Tegretol PO 100 mg BID DOMONIQUE Administration Protocol Folic Acid 1 mg 04/03/17 10:00 04/18/17 10:12 Folic Acid PO 1 mg DAILY DOMONIQUE Administration Heparin Sodium (Porcine) 5,000 units 04/11/17 14:00 04/18/17 06:29 Heparin SC 5,000 units Q8 DOMONIQUE Administration Protocol Hydromorphone HCl 0.5 mg 04/15/17 22:15 04/18/17 10:12 Dilaudid IVP 0.5 mg Q3 PRN Administration Pain, severe (8-10) Metronidazole 500 mg in 100 mls @ 100 mls/hr 04/16/17 14:00 04/18/17 06:30 Flagyl IVPB 100 mls/hr Q8 DOMONIQUE Administration Protocol Meropenem/Sodium Chloride 1 gm in 100 mls @ 100 mls/hr 04/16/17 09:37 06:30 Meropenem 1g/Ns 100ml Ivpb IVPB 04/25/17 09:38 100 mls/hr Q8 DOMONIQUE Administration Protocol Vancomycin HCl 1 gm in 250 mls @ 167 mls/hr 04/16/17 09:45 04/18/17 10:07 Vancomycin 1gm IVPB 04/25/17 09:46 167 mls/hr Q12H DOMONIQUE Administration Protocol Chromium/Copper/Manganese/Zinc 1,011 mls @ 42.125 mls/hr 04/17/17 18:00 04/17 20:56 1 ml/ Multivitamins/Vitamin C IV 04/18/17 17:59 42.125 mls/hr 10 ml/ Amino Acids/ .Q24H ONE Administration Electrolytes/Dextrose Fat Emulsion Intravenous 250 mls @ 21 mls/hr 04/17/17 18:00 04/17/17 20:55 Intralipid 20% IV 21 mls/hr [id number]@1800 DOMONIQUE Administration Amino Acids 1,000 mls @ 42 mls/hr 04/18/17 18:00 Clinimix 4.25/5 % "E" (1000 Ml) IV .[id number] [facility] Micafungin Sodium 50 mg/ 100 mls @ 100 mls/hr 04/18/17 10:00 Sodium Chloride IV 04/18/17 10:59 DAILY [facility] Protocol Lidocaine 1 ea 04/05/17 22:00 04/17/17 21:46 Lidoderm TD 1 ea 2200 DOMONIQUE Administration Metoprolol Tartrate 25 mg 04/16/17 18:00 04/18/17 10:04 Lopressor PO 25 mg BID DOMONIQUE Administration Mirtazapine 15 mg 04/02/17 23:00 04/17/17 21:02 Remeron PO Not Given [facility] Nicotine 1 patch 04/03/17 15:30 04/18/17 10:05 Nicoderm Cq TD 1 patch DAILY [facility] Administration Ondansetron HCl 4 mg 04/15/17 12:07 04/16/17 20:15 Zofran Inj IVP 4 mg Q4H PRN Administration Nausea/Vomiting Oxycodone/Acetaminophen 1 tab 04/12/17 12:33 04/15/17 05:06 Percocet 10/325 Mg Tab PO 1 tab Q4H PRN Administration Pain, moderate (4-7) Pantoprazole Sodium 40 mg 04/18/17 10:00 04/18/17 10:06 Protonix Inj IVP 40 mg Q12 DOMONIQUE Administration Polyethylene Glycol 17 gm 04/16/17 12:45 04/18/17 10:04 Miralax PO Not Given DAILY DOMONIQUE Tamsulosin HCl 0.4 mg 04/03/17 10:00 04/18/17 10:04 Flomax PO 0.4 mg DAILY DOMONIQUE Administration - Patient Studies Lab Studies: Microbiology Studies 04/17/17 03:59 Blood Culture - Preliminary Blood NO GROWTH AFTER 24 HOURS 04/17/17 03:45 Blood Culture - Preliminary Blood NO GROWTH AFTER 24 HOURS 04/16/17 01:20 Blood Culture - Preliminary Blood NO GROWTH AFTER 48 HOURS 04/16/17 01:55 S.aureus & Coag-Neg Staph PNA FISH - Final Blood Blood Culture - Preliminary Yeast Species Gram Stain - Final Lab Studies 04/18/17 04/18/17 04/18/17 Range/Units 06:40 06:40 00:15 WBC 7.6 6.9 (4.5-11.0) 10^3/ul RBC 3.12 L 2.97 L (3.5-6.1) 10^6/uL Hgb 9.1 L 8.6 L (14.0-18.0) g/dL Hct 28.1 L 26.8 L (42.0-52.0) % MCV 90.1 90.2 (80.0-105.0) fl MCH 29.2 29.0 (25.0-35.0) pg MCHC 32.4 32.1 (31.0-37.0) g/dl RDW 17.9 H 17.6 H (11.5-14.5) % Plt Count 359 353 (120.0-450.0) 10^3/uL MPV 9.5 9.8 (7.0-11.0) fl Gran % 67.2 (50.0-68.0) % Lymph % (Auto) 20.2 L (22.0-35.0) % [place] % (Auto) 11.9 H (1.0-6.0) % Eos % (Auto) 0.7 L (1.5-5.0) % Baso % (Auto) 0.0 (0.0-3.0) % Gran # 5.08 (1.4-6.5) Lymph # (Auto) 1.5 (1.2-3.4) [place] # (Auto) 0.9 H (0.1-0.6) Eos # (Auto) 0.1 (0.0-0.7) Baso # (Auto) 0.00 (0.0-2.0) K/mm3 Sodium 147 (132-148) mmol/L Potassium 3.0 L (3.6-5.0) mmol/L Chloride 106 (98-107) mmol/L Carbon Dioxide 36 H (21-33) mmol/L Anion Gap 8 L (10-20) BUN 20 (7-21) mg/dL Creatinine 0.5 L (0.8-1.5) mg/dl Est GFR ( Amer) > 60 Est GFR (Non-Af Amer) > 60 Random Glucose 147 H (70-110) mg/dL Calcium 8.7 (8.4-10.5) mg/dL Phosphorus 2.4 L (2.5-4.5) mg/dL Total Bilirubin 0.3 (0.2-1.3) mg/dL AST 15 L (17-59) U/L ALT 20 (7-56) U/L Alkaline Phosphatase 99 (38-126) U/L Total Protein 4.8 L (5.8-8.3) g/dL Albumin 2.4 L (3.0-4.8) g/dL Globulin 2.4 gm/dL Albumin/Globulin Ratio 1.0 L (1.1-1.8) HIV 1&2 Ag/Ab, 4th Gen (Nonreactive) Blood Type Antibody Screen Crossmatch BBK History Checked 04/17/17 04/17/17 04/16/17 Range/Units 11:20 10:15 06:30 WBC (4.5-11.0) 10^3/ul RBC (3.5-6.1) 10^6/uL Hgb (14.0-18.0) g/dL Hct (42.0-52.0) % MCV (80.0-105.0) fl MCH (25.0-35.0) pg MCHC (31.0-37.0) g/dl RDW (11.5-14.5) % Plt Count (120.0-450.0) 10^3/uL MPV (7.0-11.0) fl Gran % (50.0-68.0) % Lymph % (Auto) (22.0-35.0) % [place] % (Auto) (1.0-6.0) % Eos % (Auto) (1.5-5.0) % Baso % (Auto) (0.0-3.0) % Gran # (1.4-6.5) Lymph # (Auto) (1.2-3.4) [place] # (Auto) (0.1-0.6) Eos # (Auto) (0.0-0.7) Baso # (Auto) (0.0-2.0) K/mm3 Sodium 144 (132-148) mmol/L Potassium 3.3 L (3.6-5.0) mmol/L Chloride 104 (98-107) mmol/L Carbon Dioxide 32 (21-33) mmol/L Anion Gap 12 (10-20) BUN 23 H (7-21) mg/dL Creatinine 0.5 L (0.8-1.5) mg/dl Est GFR ( Amer) > 60 Est GFR (Non-Af Amer) > 60 Random Glucose 104 (70-110) mg/dL Calcium 8.4 (8.4-10.5) mg/dL Phosphorus (2.5-4.5) mg/dL Total Bilirubin (0.2-1.3) mg/dL AST (17-59) U/L ALT (7-56) U/L Alkaline Phosphatase (38-126) U/L Total Protein (5.8-8.3) g/dL Albumin (3.0-4.8) g/dL Globulin gm/dL Albumin/Globulin Ratio (1.1-1.8) HIV 1&2 Ag/Ab, 4th Gen Nonreactive (Nonreactive) Blood Type O NEGATIVE Antibody Screen Negative Crossmatch See Detail BBK History Checked Patient has bt Laboratory Results - last 24 hr 04/16/17 04/17/17 04/17/17 06:30 10:15 11:20 WBC RBC Hgb Hct MCV MCH MCHC RDW Plt Count MPV Gran % Lymph % (Auto) [place] % (Auto) Eos % (Auto) Baso % (Auto) Gran # Lymph # (Auto) [place] # (Auto) Eos # (Auto) Baso # (Auto) Sodium 144 Potassium 3.3 L Chloride 104 Carbon Dioxide 32 Anion Gap 12 BUN 23 H Creatinine 0.5 L Est GFR ( Amer) > 60 Est GFR (Non-Af Amer) > 60 Random Glucose 104 Calcium 8.4 Phosphorus Total Bilirubin AST ALT Alkaline Phosphatase Total Protein Albumin Globulin Albumin/Globulin Ratio HIV 1&2 Ag/Ab, 4th Gen Nonreactive Blood Type O NEGATIVE Antibody Screen Negative Crossmatch See Detail BBK History Checked Patient has bt 04/18/17 04/18/17 04/18/17 00:15 06:40 06:40 WBC 6.9 7.6 RBC 2.97 L 3.12 L Hgb 8.6 L 9.1 L Hct 26.8 L 28.1 L MCV 90.2 90.1 MCH 29.0 29.2 MCHC 32.1 32.4 RDW 17.6 H 17.9 H Plt Count 353 359 MPV 9.8 9.5 Gran % 67.2 Lymph % (Auto) 20.2 L [place] % (Auto) 11.9 H Eos % (Auto) 0.7 L Baso % (Auto) 0.0 Gran # 5.08 Lymph # (Auto) 1.5 [place] # (Auto) 0.9 H Eos # (Auto) 0.1 Baso # (Auto) 0.00 Sodium 147 Potassium 3.0 L Chloride 106 Carbon Dioxide 36 H Anion Gap 8 L BUN 20 Creatinine 0.5 L Est GFR ( Amer) > 60 Est GFR (Non-Af Amer) > 60 Random Glucose 147 H Calcium 8.7 Phosphorus 2.4 L Total Bilirubin 0.3 AST 15 L ALT 20 Alkaline Phosphatase 99 Total Protein 4.8 L Albumin 2.4 L Globulin 2.4 Albumin/Globulin Ratio 1.0 L HIV 1&2 Ag/Ab, 4th Gen Blood Type Antibody Screen Crossmatch BBK History Checked Critical Care Progress Note - Nutrition Nutrition: Nutrition Category Date Time Status NPO Diet [DIET] Diets 04/16/17 Lunch Ordered Assessment/Plan - Assessment and Plan (Free Text) Plan: Pt seen and examined with resident on rounds agree with note with following additions/exceptions: 61yo male with PMHs of HTN, HLD, CVA with L side weakness, chronic back pain on opioid at home who was admitted for SMA syndrome, s/p open gastrojejunostomy POD #8. Transferred to ICU due to hypoxia, requiring high flow O2. Pt is DNR/ DNI. Currently on high flow O2, 70%, 50LPM, sat 100%, in NAD, comfortable, NGT in pladce, draining billious material, surgery following. HH stable, responded appropriately after 2u PRBC Respiratory failure Hypoxia s.p Open gastrojejunostomy POD #8 Cachexia Failure to Thriva Fungemia Recommend: - cont with high flow as tolerated, wean FiO2 down, goal sat 90% - cont with antibiotics as per ID, consider starting anti-fungal coverage - BP control - IVF hydration - TPN as per primary team - NGT to suction - follow up surgery - monitor CBC - nutrition consult - GI ppx - DVT ppx - patient stable, transfer to telemetry
[2017-04-18 08:20] LABS: ALBUMIN 2.4 g/dL (3.0-4.8); ALT/SGPT 20 U/L (7-56); AST/SGOT 15 U/L (17-59); BLOOD UREA NITROGEN 20 mg/dL (7-21); CALCIUM 8.7 mg/dL (8.4-10.5); GFR AFRICAN-AMERICAN > 60; GFR NON-AFRICAN AMERICAN > 60
[2017-04-18] MEDS: POLYETHYLENE GLYCOL 3350 17 GM/Dose PACKET PO SCH (10:04)
[2017-04-18] MEDS: Vancomycin 1gm in NS 250ml 1 GM/250 ML BAG IVPB SCH ×2 (10:07→21:34)
--- NOTE | 2017-04-18 11:52 | CP.PCM.PN ---
Subjective - Date & Time of Evaluation Date of Evaluation: 04/18/17 Time of Evaluation: 11:47 - Subjective Subjective: Surgery: Dr. Toscano Patient remains in ICU. Clinically improved. High flow O2 weaned this am. NGT on suction, fluid contents appear more bilious/gastric. Patient requesting ice chips. No bowel function per nursing or patient. Objective - Vital Signs/Intake and Output Vital Signs (last 24 hours): Temp Pulse Resp BP Pulse Ox 98.7 F 80 20 103/59 L 96 04/18/17 06:00 04/18/17 10:04 04/18/17 09:44 04/18/17 10:04 04/18/17 09:44 Intake and Output: 04/18/17 04/18/17 06:59 18:59 Intake Total 1340 Output Total 3400 Balance -2059 - Medications Medications: Current Medications Albuterol/Ipratropium (Duoneb 3 Mg/0.5 Mg (3 Ml) Ud) 3 ml IH [id number] [facility] Carbamazepine (Tegretol) 100 mg PO BID [facility] PRN Reason: Protocol Last Admin: 04/18/17 10:12 Dose: 100 mg Folic Acid (Folic Acid) 1 mg PO DAILY [facility] Last Admin: 04/18/17 10:12 Dose: 1 mg Heparin Sodium (Porcine) (Heparin) 5,000 units SC Q8 [facility] PRN Reason: Protocol Last Admin: 04/18/17 06:29 Dose: 5,000 units Hydromorphone HCl (Dilaudid) 0.5 mg IVP Q3 PRN PRN Reason: Pain, severe (8-10) Last Admin: 04/18/17 10:12 Dose: 0.5 mg Metronidazole (Flagyl) 500 mg in 100 mls @ 100 mls/hr IVPB Q8 [facility] PRN Reason: Protocol Last Admin: 04/18/17 06:30 Dose: 100 mls/hr Meropenem/Sodium Chloride (Meropenem 1g/Ns 100ml Ivpb) 1 gm in 100 mls @ 100 mls/hr IVPB Q8 [facility] PRN Reason: Protocol Stop: 04/25/17 09:38 Last Admin: 04/18/17 06:30 Dose: 100 mls/hr Vancomycin HCl (Vancomycin 1gm) 1 gm in 250 mls @ 167 mls/hr IVPB Q12H [facility] PRN Reason: Protocol Stop: 04/25/17 09:46 Last Admin: 04/18/17 10:07 Dose: 167 mls/hr Chromium/Copper/Manganese/Zinc 1 ml/ Multivitamins/Vitamin C 10 ml/ Amino Acids/ Electrolytes/Dextrose 1,011 mls @ 42.125 mls/hr IV .Q24H ONE Stop: 04/18/17 17:59 Last Admin: 04/17/17 20:56 Dose: 42.125 mls/hr Fat Emulsion Intravenous (Intralipid 20%) 250 mls @ 21 mls/hr IV MWF@1800 [facility] Last Admin: 04/17/17 20:55 Dose: 21 mls/hr Amino Acids (Clinimix 4.25/5 % "E" (1000 Ml)) 1,000 mls @ 42 mls/hr IV .[id number] [facility] Potassium Chloride (Potassium Chloride 10 Meq/100 Ml) 10 meq in 100 mls @ 50 mls/hr IVPB Q1H [facility] Stop: 04/18/17 14:44 Lidocaine (Lidoderm) 1 ea TD 2200 [facility] Last Admin: 04/17/17 21:46 Dose: 1 ea Metoprolol Tartrate (Lopressor) 25 mg PO BID [facility] Last Admin: 04/18/17 10:04 Dose: 25 mg Mirtazapine (Remeron) 15 mg PO HS [facility] Last Admin: 04/17/17 21:02 Dose: Not Given Nicotine (Nicoderm Cq) 1 patch TD DAILY [facility] Last Admin: 04/18/17 10:05 Dose: 1 patch Ondansetron HCl (Zofran Inj) 4 mg IVP Q4H PRN PRN Reason: Nausea/Vomiting Last Admin: 04/16/17 20:15 Dose: 4 mg Oxycodone/Acetaminophen (Percocet 10/325 Mg Tab) 1 tab PO Q4H PRN PRN Reason: Pain, moderate (4-7) Last Admin: 04/15/17 05:06 Dose: 1 tab Pantoprazole Sodium (Protonix Inj) 40 mg IVP Q12 [facility] Last Admin: 04/18/17 10:06 Dose: 40 mg Polyethylene Glycol (Miralax) 17 gm PO DAILY [facility] Last Admin: 04/18/17 10:04 Dose: Not Given Tamsulosin HCl (Flomax) 0.4 mg PO DAILY [facility] Last Admin: 04/18/17 10:04 Dose: 0.4 mg - Labs Labs: 04/18/17 06:40 04/18/17 06:40 PT 12.5 SECONDS (9.4-12.5) 04/09/17 15:35 INR 1.09 (0.93-1.08) H 04/09/17 15:35 APTT 32.7 Seconds (25.1-36.5) 04/09/17 15:35 - Constitutional Appears: Cachectic - Head Exam Head Exam: ATRAUMATIC, NORMOCEPHALIC - Eye Exam Eye Exam: EOMI, Normal appearance - ENT Exam ENT Exam: Mucous Membranes Dry - Respiratory Exam Respiratory Exam: NORMAL BREATHING PATTERN. absent: Respiratory Distress Additional comments: waning to NC - Cardiovascular Exam Cardiovascular Exam: REGULAR RHYTHM. absent: Tachycardia - GI/Abdominal Exam GI & Abdominal Exam: Soft. 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 Toscano [facility] PGY3
[2017-04-18] MEDS ORDERED: Oxycodone/Acetaminophen 10/325 mg Tab PO PRN (14:29)
--- NOTE | 2017-04-18 14:49 | CP.PCM.PN ---
Subjective - Date & Time of Evaluation Date of Evaluation: 04/18/17 Time of Evaluation: 14:43 - Subjective Subjective: RFV: SMA Syndrome S: continued bilious output from NGT and poor po intake. Started on TPN. Complains of abdominal and back pain. Objective - Vital Signs/Intake and Output Vital Signs (last 24 hours): Temp Pulse Resp BP Pulse Ox 98.7 F 80 20 103/59 L 96 04/18/17 06:00 04/18/17 10:04 04/18/17 09:44 04/18/17 10:04 04/18/17 09:44 Intake and Output: 04/18/17 04/18/17 06:59 18:59 Intake Total 1340 Output Total 3400 Balance -2059 - Medications Medications: Current Medications Albuterol/Ipratropium (Duoneb 3 Mg/0.5 Mg (3 Ml) Ud) 3 ml IH [id number] [facility] Carbamazepine (Tegretol) 100 mg PO BID [facility] PRN Reason: Protocol Last Admin: 04/18/17 10:12 Dose: 100 mg Folic Acid (Folic Acid) 1 mg PO DAILY [facility] Last Admin: 04/18/17 10:12 Dose: 1 mg Heparin Sodium (Porcine) (Heparin) 5,000 units SC Q8 [facility] PRN Reason: Protocol Last Admin: 04/18/17 06:29 Dose: 5,000 units Hydromorphone HCl (Dilaudid) 0.5 mg IVP Q3 PRN PRN Reason: Pain, severe (8-10) Last Admin: 04/18/17 10:12 Dose: 0.5 mg Metronidazole (Flagyl) 500 mg in 100 mls @ 100 mls/hr IVPB Q8 [facility] PRN Reason: Protocol Last Admin: 04/18/17 06:30 Dose: 100 mls/hr Meropenem/Sodium Chloride (Meropenem 1g/Ns 100ml Ivpb) 1 gm in 100 mls @ 100 mls/hr IVPB Q8 [facility] PRN Reason: Protocol Stop: 04/25/17 09:38 Last Admin: 04/18/17 06:30 Dose: 100 mls/hr Vancomycin HCl (Vancomycin 1gm) 1 gm in 250 mls @ 167 mls/hr IVPB Q12H [facility] PRN Reason: Protocol Stop: 04/25/17 09:46 Last Admin: 04/18/17 10:07 Dose: 167 mls/hr Chromium/Copper/Manganese/Zinc 1 ml/ Multivitamins/Vitamin C 10 ml/ Amino Acids/ Electrolytes/Dextrose 1,011 mls @ 42.125 mls/hr IV .Q24H [facility] Stop: 04/18/17 17:59 Last Admin: 04/17/17 20:56 Dose: 42.125 mls/hr Fat Emulsion Intravenous (Intralipid 20%) 250 mls @ 21 mls/hr IV MWF@1800 [facility] Last Admin: 04/17/17 20:55 Dose: 21 mls/hr Amino Acids (Clinimix 4.25/5 % "E" (1000 Ml)) 1,000 mls @ 42 mls/hr IV .[id number] [facility] Potassium Chloride (Potassium Chloride 10 Meq/100 Ml) 10 meq in 100 mls @ 50 mls/hr IVPB Q1H [facility] Stop: 04/18/17 14:44 Last Admin: 04/18/17 12:41 Dose: 50 mls/hr Lidocaine (Lidoderm) 1 ea TD 2200 [facility] Last Admin: 04/17/17 21:46 Dose: 1 ea Metoprolol Tartrate (Lopressor) 25 mg PO BID [facility] Last Admin: 04/18/17 10:04 Dose: 25 mg Mirtazapine (Remeron) 15 mg PO HS [facility] Last Admin: 04/17/17 21:02 Dose: Not Given Nicotine (Nicoderm Cq) 1 patch TD DAILY [facility] Last Admin: 04/18/17 10:05 Dose: 1 patch Ondansetron HCl (Zofran Inj) 4 mg IVP Q4H PRN PRN Reason: Nausea/Vomiting Last Admin: 04/16/17 20:15 Dose: 4 mg Oxycodone/Acetaminophen (Percocet 10/325 Mg Tab) 1 tab PO Q4H PRN PRN Reason: Pain, moderate (4-7) Last Admin: 04/15/17 05:06 Dose: 1 tab Pantoprazole Sodium (Protonix Inj) 40 mg IVP Q12 [facility] Last Admin: 04/18/17 10:06 Dose: 40 mg Polyethylene Glycol (Miralax) 17 gm PO DAILY [facility] Last Admin: 04/18/17 10:04 Dose: Not Given Tamsulosin HCl (Flomax) 0.4 mg PO DAILY [facility] Last Admin: 04/18/17 10:04 Dose: 0.4 mg - Labs Labs: 04/18/17 06:40 04/18/17 06:40 PT 12.5 SECONDS (9.4-12.5) 04/09/17 15:35 INR 1.09 (0.93-1.08) H 04/09/17 15:35 APTT 32.7 Seconds (25.1-36.5) 04/09/17 15:35 - Constitutional Appears: Cachectic - Eye Exam Eye Exam: Normal appearance - ENT Exam ENT Exam: Mucous Membranes Dry - Respiratory Exam Respiratory Exam: Rhonchi, NORMAL BREATHING PATTERN - Cardiovascular Exam Cardiovascular Exam: REGULAR RHYTHM, +S1, +S2 - GI/Abdominal Exam GI & Abdominal Exam: Soft. absent: Distended, Firm, Guarding, Tenderness - Neurological Exam Neurological Exam: Alert - Psychiatric Exam Psychiatric exam: Normal Affect - Skin Skin Exam: Dry Assessment and Plan - Assessment and Plan (Free Text) Assessment: 61 year old male with h/o CVA admitted with N/V, abdo pain, weight loss, found to have SMA syndrome now s/p gastrojenuostomy, with persistent poor PO intake and bilious vomiting. 1. SMA syndrome 2. Malnutrition 3. Pneumonia Plan: -discussed with Dr. Toscano -discussed with the patient and daughter -will tentatively plan for endoscopy with jejunal feeding tube placement on if his respiratory status is acceptable at that time -in the meantime, please do everything to optimize his respiratory status until then -discussed the procedure including risks of anasthesia, bleeding ,infection, and perforation -they agree to proceed
[2017-04-18] MEDS ORDERED: Morphine 4 mg/ml ISec IVP PRN (17:19)
--- NOTE | 2017-04-18 17:32 | PN ---
DATE: 04/18/2017 REASON FOR THE CONSULTATION AND FOLLOWUP: Status post small bowel resection and status post gastrojejunostomy tube. SUBJECTIVE: The patient is awake, alert, on non-rebreather noninvasive ventilator. OBJECTIVE: VITAL SIGNS: Temperature afebrile, heart rate 80, blood pressure 103/59. HEENT: PERRLA. Extraocular muscles intact. NECK: Supple. No carotid bruit or thyromegaly. CHEST: Clear to auscultation. HEART: S1 and S2, regular. ABDOMEN: Soft. EXTREMITIES: Clubbing and cyanosis negative. LABORATORY DATA: Blood workup as follows: WBC 7.6, hemoglobin9.8, hematocrit 28.1, and platelet count 359. Chemistry shows sodium 147, potassium 3, chloride 106, carbon dioxide 36, anion gap of 18. BUN 20, creatinine 0.5. Total protein 4.8, albumin 2.4, albumin and globulin ratio 1. IMPRESSION: Severe protein-calorie malnutrition which was not present on admission. Small bowel perforation, status post gastrojejunostomy, exploratory laparotomy, hypokalemia, impending respiratory failure, noninvasive ventilator, severe protein-calorie malnutrition not present on admission. RECOMMENDATIONS: Continue supplement potassium, continue antibiotic, continue noninvasive ventilator. Overall, patient's condition is critical. Long-term prognosis is guarded. Code status DNR. Continue supportive care. If prolonged n.p.o. , consider PPN. We will follow with you. We will supplement potassium. Continue beta-michelle. Thank you Dr. Lantigua for providing us the opportunity in taking care of patient, Brandyn Wang. Velvet Bey MD
--- NOTE | 2017-04-18 19:11 | PN ---
DATE: 04/18/2017 SUBJECTIVE: The patient is in bed, in no acute distress, nontoxic. PHYSICAL EXAMINATION: VITAL SIGNS: Temperature is 98, blood pressure is 104/50, respiratory rate of 22, heart rate of 103. HEENT: Unremarkable. NECK: Supple. LUNGS: Have decreased breath sounds. HEART: Normal S1, S2. ABDOMEN: Soft. LABORATORY DATA: Reveals a white count of 7.6, hemoglobin of 9, platelets of 359. Chemistries reveals a BUN of 20, creatinine of 0.5 and a procalcitonin 0.77. Urinalysis is noted and serology is noted. Microbiology: Yeast in the blood. Repeat blood cultures are no growth. ASSESSMENT AND PLAN: This is a 61-year-old male with history of hypertension, cerebrovascular accident, left-sided weakness, anxiety, arthritis, admitted with a small bowel obstruction, abdominal surgery and had an open gastrojejunostomy and procedure, day #7, now with sepsis, with fungemia, yeast in the blood from the cultures from 04/16/ one bottle and fungemia now with status post abdominal surgery with superior mesenteric artery syndrome, status post gastrojejunostomy post day #8. We will add Mycamine. Overall prognosis poor. Fidencio Mckenna MD
--- NOTE | 2017-04-18 22:13 | PN ---
DATE: 04/18/2017 PULMONARY PROGRESS NOTE REFERRING PHYSICIAN: Radha Lantigua MD. SUBJECTIVE: He is lying in the bed, head at 45 degrees. He has a nasogastric tube with intermittent suction. He has a coffee-ground drainage. Cough is better. On nasal cannula. Still has abdominal pain. No leg pain or leg swelling. OBJECTIVE: GENERAL: In no acute distress. VITAL SIGNS: Temp is 98, heart rate is 100, respiratory rate is 20, blood pressure 103/66, pulse ox 95% on nasal cannula. HEENT: Moist mucous membrane. NECK: Supple. No JVD. LUNGS: Have diffuse scattered rhonchi and basal crackles HEART: S1 and S2. ABDOMEN: Decreased distention. Minimal bowel sounds. EXTREMITIES: There is no edema. NEUROLOGICAL: Awake, alert. Follows simple command. LABORATORY DATA: Shows hemoglobin 9.1, hematocrit 28.1, WBC 7.6, platelet is 359. Sodium 147, potassium 3.0, chloride 106, bicarbonate 36, BUN 20, creatinine 0.5, glucose is 147, calcium is 8.7, phosphorus 2.4, AST 15, ALT 20, alk phos is 20, albumin is 2.4. MEDICATIONS: He is on IV Clinimix 42 mL/hour, DuoNeb q. 6 hours, Flagyl 500 mg IV q. 8 hours, Flomax 0.4 mg daily, folic acid 1 mg daily, heparin 5000 units subcu q. 8 hours, Intralipid is 21 mL/hour, Lidoderm to affected area, metoprolol tartrate 25 mg twice a day, meropenem 1 g q. 8 hours, MiraLax 17 g daily, morphine 4 mg q. 4 hours p.r.n., Nicoderm patch daily, Tylenol suppository p.r.n., Percocet 10/325 one tab q. 4 hours p.r.n., Protonix 40 mg q. 12 hours, Remeron is 15 mg at bedtime, Tegretol 100 mg twice a day, Toradol 3 mg q. 6 hours, vancomycin IV q. 12 hours, Zofran p.r.n. basis. IMPRESSION AND PLAN: Multilobe aspiration pneumonia, superior mesenteric artery syndrome, status post gastrojejunostomy, probably has intestinal obstruction or ileus, chronic lung disease. Pulmonary point of view, doing okay. Keep head at 45 degrees. Being followed by Gastroenterology and Surgery. Gastric prophylaxis. Sequential compression device to lower extremity. Continue peripheral nutrition. We will suggest getting CT of the abdomen and pelvis with contrast to evaluate where the obstruction is. Thank you and we will follow with you. Velvet Castillo MD
[2017-04-18] MEDS: Morphine 5 MG/ML SYRINGE IVP PRN (22:37)
[2017-04-18] MEDS: Lidocaine 5% Patch TD SCH (23:43)
--- NOTE | 2017-04-19 01:44 | PN ---
DATE: SUBJECTIVE: The patient is a 61-year-old male. The patient was seen and examined on the bedside. I saw him in the unit, still having NG tube, getting suction. Started on TPN. Still complaining of abdominal pain and back pain. No swelling of the leg. No headache. No dizziness. No chest pain. No palpitation. PHYSICAL EXAMINATION: VITAL SIGNS: Temperature 98.7, pulse 80, respiratory rate 20, blood pressure 103/59, pulse oximetry 96. HEENT: Head is normocephalic, atraumatic. Eyes, PERRLA. Extraocular muscles are intact. Conjunctivae are clear. Nose is patent. Mucous membranes are moist. NECK: Supple. No carotid bruits, JVD, or thyromegaly. CHEST: Bilaterally symmetrical. HEART: S1 and S2 positive. LUNGS: Clear to auscultation. ABDOMEN: Soft, bowel sounds positive. No organomegaly. EXTREMITIES: No edema. No cyanosis. NEUROLOGIC: The patient is awake and alert. Moving all four extremities. No focal deficits. MEDICATIONS: DuoNeb, Tegretol, folic acid, heparin, hydromorphone, metronidazole, vancomycin, dextrose, fat emulsion, Lidocaine, metoprolol, Remeron, nicotine patch, Zofran, oxycodone, pantoprazole, MiraLax, Flomax. LABS: White blood cells 6.7, hemoglobin 9.1, hematocrit 28.1, platelets 359. Sodium 147, potassium 3.0, BUN 20, creatinine 0.5, glucose 147. ASSESSMENT AND PLAN: Mr. Brandyn Wang is a 61-year-old male with anemia, hypokalemia, hyperglycemia, history of cerebrovascular accident, abdominal pain, weight loss, found to have superior mesenteric artery syndrome status post gastrojejunostomy with persistent p.o. intake and bilious vomiting, malnutrition, and pneumonia. Dr. Toscano did the surgery. Surgeon had discussion with the patient's [id number] who was standing at the bedside. According to Surgery or Gastroenterology, maybe the patient needs endoscopy with jejunal feeding tube placement on if his respiratory status is acceptable at that time. Seen by Dr. Fidencio Mckenna, Infectious Disease specialist. History of hypertension, anxiety, arthritis. Postoperative day #7 today, now sepsis with fungemia. Dr. Mckenna added Mycamine. Continue present treatment. Gastrointestinal and deep venous thrombosis prophylaxes. Repeat labs. We will follow with you. Radha Lantigua MD
[2017-04-19] MEDS: Morphine 5 MG/ML SYRINGE IVP PRN ×3 (02:48→14:37)
[2017-04-19] MEDS: Albuterol-Ipratrop 3 mg / 0.5 (3 ml) UD IH SCH ×4 (03:00→20:00)
[2017-04-19] MEDS: Meropenem 1g/NS 100mL IVPB 1 GM/100 ML PIGGYBACK IVPB SCH ×3 (06:00→22:33)
[2017-04-19] MEDS: metroNIDAZOLE IV 500 mg/100 ml 500 MG/100 ML BAG IVPB SCH ×2 (06:00→18:27)
[2017-04-19 07:15] LABS: ALB/GLOB RATIO 1.1 (1.1-1.8); ALBUMIN 2.4 g/dL (3.0-4.8); ALT/SGPT 22 U/L (7-56); AST/SGOT 22 U/L (17-59); BLOOD UREA NITROGEN 22 mg/dL (7-21); CALCIUM 8.3 mg/dL (8.4-10.5); GFR AFRICAN-AMERICAN > 60; GFR NON-AFRICAN AMERICAN > 60
--- NOTE | 2017-04-19 09:15 | RAD ---
HISTORY: infiltrate COMPARISON: Portable chest 04/17/2017 6:03 a.m. FINDINGS: Nasogastric tube does not appear simply changed in position with side hole at esophagogastric junction. Right upper extremity PICC catheter now placed with tip terminating at superior vena cava. LUNGS: Diminished infiltrate seen the mid to inferior right lung zone with none appreciated at the left at this time. PLEURA: No significant pleural effusion identified, no pneumothorax apparent. CARDIOVASCULAR: Normal. OSSEOUS STRUCTURES: No significant abnormalities. VISUALIZED UPPER ABDOMEN: Skin antionette again noted at the left upper quadrant abdomen with gas distending the gastric viscus inferior to left hemidiaphragm. OTHER FINDINGS: None. IMPRESSION: Diminishing mid to inferior right sided infiltrate with none on the left. Right PICC inserted as discussed above. Nasonex tube is unchanged in position, however note, side hole is at the esophagogastric junction and advancement of the catheter into the stomach is recommended.
[2017-04-19] MEDS ORDERED: Micafungin 100 MG in Sodium Chloride 0.9% 100 ML IV SCH (10:00)
[2017-04-19] MEDS: POLYETHYLENE GLYCOL 3350 17 GM/Dose PACKET PO SCH (10:08)
[2017-04-19] MEDS: Vancomycin 1gm in NS 250ml 1 GM/250 ML BAG IVPB SCH ×2 (10:37→22:35)
[2017-04-19] MEDS ORDERED: Barium Sulfate Susp 2.1% w/v, 2.0% w/w 450 mL Bottle PO ONE (11:53)
[2017-04-19] MEDS ORDERED: Iohexol 350 MG/100 ML VIAL ONE (11:57)
--- NOTE | 2017-04-19 12:14 | CP.PCM.PN ---
<Blaine Naylor - Last Filed: 04/19/17 12:28> Subjective - Date & Time of Evaluation Date of Evaluation: 04/19/17 Time of Evaluation: 12:11 - Subjective Subjective: GI Progress note - Blaine Naylor PGY2 Reason for consult: SMA syndrome Patient seen and examined at bedside this morning. No acute overnight events reported. Output from NGT noted to be bilious. Patient complained of dry mouth and requested ice pops. Otherwise, denies abdominal pain, nausea, vomiting, chest pain, palpitations, SOB. Aware that he is scheduled for jejunostomy tube placement tomorrow so that his diet can be advanced. 12point ROS as per above otherwise negative. Objective - Vital Signs/Intake and Output Vital Signs (last 24 hours): Temp Pulse Resp BP Pulse Ox 97.6 F 101 H 20 112/79 99 04/19/17 06:48 04/19/17 10:07 04/19/17 06:48 04/19/17 10:07 04/19/17 06:48 Intake and Output: 04/19/17 04/19/17 06:59 18:59 Intake Total 0 650 Output Total 200 Balance -200 650 - Medications Medications: Current Medications Albuterol/Ipratropium (Duoneb 3 Mg/0.5 Mg (3 Ml) Ud) 3 ml IH [id number] [facility] Last Admin: 04/19/17 07:25 Dose: 3 ml Carbamazepine (Tegretol) 100 mg PO BID [facility] PRN Reason: Protocol Last Admin: 04/19/17 10:09 Dose: Not Given Folic Acid (Folic Acid) 1 mg PO DAILY [facility] Last Admin: 04/19/17 10:07 Dose: Not Given Heparin Sodium (Porcine) (Heparin) 5,000 units SC Q8 [facility] PRN Reason: Protocol Last Admin: 04/19/17 06:02 Dose: 5,000 units Metronidazole (Flagyl) 500 mg in 100 mls @ 100 mls/hr IVPB Q8 [facility] PRN Reason: Protocol Last Admin: 04/19/17 06:00 Dose: 100 mls/hr Meropenem/Sodium Chloride (Meropenem 1g/Ns 100ml Ivpb) 1 gm in 100 mls @ 100 mls/hr IVPB Q8 [facility] PRN Reason: Protocol Stop: 04/25/17 09:38 Last Admin: 04/19/17 06:00 Dose: 100 mls/hr Vancomycin HCl (Vancomycin 1gm) 1 gm in 250 mls @ 167 mls/hr IVPB Q12H [facility] PRN Reason: Protocol Stop: 04/25/17 09:46 Last Admin: 04/19/17 10:37 Dose: 167 mls/hr Fat Emulsion Intravenous (Intralipid 20%) 250 mls @ 21 mls/hr IV MWF@1800 [facility] Last Admin: 04/17/17 20:55 Dose: 21 mls/hr Amino Acids (Clinimix 4.25/5 % "E" (1000 Ml)) 1,000 mls @ 42 mls/hr IV .[id number] [facility] Last Admin: 04/18/17 17:44 Dose: 42 mls/hr Potassium Chloride (Potassium Chloride 10 Meq/100 Ml) 10 meq in 100 mls @ 50 mls/hr IVPB Q2H [facility] Stop: 04/19/17 13:59 Ketorolac Tromethamine (Toradol) 30 mg IVP Q6 [facility] Last Admin: 04/19/17 06:01 Dose: 30 mg Lidocaine (Lidoderm) 1 ea TD 2200 [facility] Last Admin: 04/18/17 23:43 Dose: 1 ea Metoprolol Tartrate (Lopressor) 25 mg PO BID [facility] Last Admin: 04/19/17 10:07 Dose: Not Given Mirtazapine (Remeron) 15 mg PO HS [facility] Last Admin: 04/18/17 21:32 Dose: Not Given Morphine Sulfate (Morphine) 4 mg IVP Q4H PRN PRN Reason: Pain, severe (8-10) Last Admin: 04/19/17 10:29 Dose: 4 mg Nicotine (Nicoderm Cq) 1 patch TD DAILY [facility] Last Admin: 04/19/17 10:39 Dose: 1 patch Ondansetron HCl (Zofran Inj) 4 mg IVP Q4H PRN PRN Reason: Nausea/Vomiting Last Admin: 04/16/17 20:15 Dose: 4 mg Oxycodone/Acetaminophen (Percocet 10/325 Mg Tab) 1 tab PO Q4H PRN PRN Reason: Pain, moderate (4-7) Last Admin: 04/18/17 15:49 Dose: 1 tab Pantoprazole Sodium (Protonix Inj) 40 mg IVP Q12 [facility] Last Admin: 04/19/17 11:02 Dose: 40 mg Polyethylene Glycol (Miralax) 17 gm PO DAILY [facility] Last Admin: 04/19/17 10:08 Dose: Not Given Tamsulosin HCl (Flomax) 0.4 mg PO DAILY [facility] Last Admin: 04/19/17 10:38 Dose: Not Given - Labs Labs: 04/18/17 06:40 04/19/17 05:00 PT 12.5 SECONDS (9.4-12.5) 04/09/17 15:35 INR 1.09 (0.93-1.08) H 04/09/17 15:35 APTT 32.7 Seconds (25.1-36.5) 04/09/17 15:35 - Constitutional Appears: Cachectic - Head Exam Head Exam: ATRAUMATIC, NORMOCEPHALIC - Eye Exam Eye Exam: EOMI Pupil Exam: PERRL - ENT Exam ENT Exam: Mucous Membranes Dry - Neck Exam Neck Exam: Normal Inspection. absent: Lymphadenopathy, Tenderness, Thyromegaly - Respiratory Exam Respiratory Exam: absent: Rales, Rhonchi, Wheezes - Cardiovascular Exam Cardiovascular Exam: +S1, +S2. absent: Gallop, Rubs - GI/Abdominal Exam GI & Abdominal Exam: Soft. absent: Distended, Firm, Guarding, Rigid, Tenderness - Neurological Exam Neurological Exam: Alert, Awake, Oriented x3 - Psychiatric Exam Psychiatric exam: Normal Affect, Normal Mood - Skin Skin Exam: Dry, Intact, Normal Color, Warm Assessment and Plan - Assessment and Plan (Free Text) Plan: 61yo male with history of hypertension, hyperlipidemia, CVA w/ residual left- sided weakness, chronic back pain who was admitted with abdominal pain associated with nausea, vomiting and weight loss secondary to SMA syndrome now s /p gastrojenuostomy (POD#9) with persistent poor PO intake and bilious vomiting. 1. SMA syndrome 2. Malnutrition 3. Aspiration pneumonia 4. Anemia Plan: -Patient is scheduled for endoscopy tomorrow morning for jejunal tube placement -Risks, benefits and alternatives of the procedure have been discussed with patient and his daughter -NPO past midnight -Stop TPN past midnight -Continue PPI for GI prophylaxis -Optimize respiratory status for endoscopic procedure tomorrow -Continue medical management as per primary team Patient seen and case discussed/reviewed with attending, Dr. Hernández <Edgar [facility]ERN[facility]Fl[facility] Healthcaremarcus - Last Filed: 04/19/17 14:23> Objective - Vital Signs/Intake and Output Vital Signs (last 24 hours): Temp Pulse Resp BP Pulse Ox 97.6 F 101 H 20 112/79 99 04/19/17 06:48 04/19/17 10:07 04/19/17 06:48 04/19/17 10:07 04/19/17 06:48 Intake and Output: 04/19/17 04/19/17 06:59 18:59 Intake Total 0 650 Output Total 200 Balance -200 650 - Medications Medications: Current Medications Albuterol/Ipratropium (Duoneb 3 Mg/0.5 Mg (3 Ml) Ud) 3 ml IH [id number] [facility] Last Admin: 04/19/17 13:26 Dose: 3 ml Carbamazepine (Tegretol) 100 mg PO BID [facility] PRN Reason: Protocol Last Admin: 04/19/17 10:09 Dose: Not Given Folic Acid (Folic Acid) 1 mg PO DAILY [facility] Last Admin: 04/19/17 10:07 Dose: Not Given Heparin Sodium (Porcine) (Heparin) 5,000 units SC Q8 [facility] PRN Reason: Protocol Last Admin: 04/19/17 06:02 Dose: 5,000 units Metronidazole (Flagyl) 500 mg in 100 mls @ 100 mls/hr IVPB Q8 [facility] PRN Reason: Protocol Last Admin: 04/19/17 06:00 Dose: 100 mls/hr Meropenem/Sodium Chloride (Meropenem 1g/Ns 100ml Ivpb) 1 gm in 100 mls @ 100 mls/hr IVPB Q8 [facility] PRN Reason: Protocol Stop: 04/25/17 09:38 Last Admin: 04/19/17 13:29 Dose: 100 mls/hr Vancomycin HCl (Vancomycin 1gm) 1 gm in 250 mls @ 167 mls/hr IVPB Q12H [facility] PRN Reason: Protocol Stop: 04/25/17 09:46 Last Admin: 04/19/17 10:37 Dose: 167 mls/hr Fat Emulsion Intravenous (Intralipid 20%) 250 mls @ 21 mls/hr IV MWF@1800 [facility] Last Admin: 04/17/17 20:55 Dose: 21 mls/hr Amino Acids (Clinimix 4.25/5 % "E" (1000 Ml)) 1,000 mls @ 42 mls/hr IV .[id number] [facility] Stop: 04/20/17 00:01 Last Admin: 04/18/17 17:44 Dose: 42 mls/hr Ketorolac Tromethamine (Toradol) 30 mg IVP Q6 [facility] Last Admin: 04/19/17 13:28 Dose: 30 mg Lidocaine (Lidoderm) 1 ea TD 2200 [facility] Last Admin: 04/18/17 23:43 Dose: 1 ea Metoprolol Tartrate (Lopressor) 25 mg PO BID [facility] Last Admin: 04/19/17 10:07 Dose: Not Given Mirtazapine (Remeron) 15 mg PO HS [facility] Last Admin: 04/18/17 21:32 Dose: Not Given Morphine Sulfate (Morphine) 4 mg IVP Q4H PRN PRN Reason: Pain, severe (8-10) Last Admin: 04/19/17 10:29 Dose: 4 mg Nicotine (Nicoderm Cq) 1 patch TD DAILY [facility] Last Admin: 04/19/17 10:39 Dose: 1 patch Ondansetron HCl (Zofran Inj) 4 mg IVP Q4H PRN PRN Reason: Nausea/Vomiting Last Admin: 04/16/17 20:15 Dose: 4 mg Oxycodone/Acetaminophen (Percocet 10/325 Mg Tab) 1 tab PO Q4H PRN PRN Reason: Pain, moderate (4-7) Last Admin: 04/18/17 15:49 Dose: 1 tab Pantoprazole Sodium (Protonix Inj) 40 mg IVP Q12 [facility] Last Admin: 04/19/17 11:02 Dose: 40 mg Polyethylene Glycol (Miralax) 17 gm PO DAILY [facility] Last Admin: 04/19/17 10:08 Dose: Not Given Tamsulosin HCl (Flomax) 0.4 mg PO DAILY [facility] Last Admin: 04/19/17 10:38 Dose: Not Given - Labs Labs: 04/18/17 06:40 04/19/17 05:00 PT 12.5 SECONDS (9.4-12.5) 04/09/17 15:35 INR 1.09 (0.93-1.08) H 04/09/17 15:35 APTT 32.7 Seconds (25.1-36.5) 04/09/17 15:35 Attending/Attestation - Attestation I have personally seen and examined this patient.: Yes I have fully participated in the care of the patient.: Yes I have reviewed all pertinent clinical information, including history, physical exam and plan: Yes Notes (Text): 04/19/17 14:12 Patient seen and examined at bedside. This is a 61 year old male with h/o CVA admitted with nausea and vomiting, abdominal pain, weight loss, found to have SMA syndrome now s/p gastrojenuostomy, with persistent poor PO intake and bilious vomiting. He is scheduled for jejeunal feeding tube for tomorrow with Dr Ozuna. No BM overnight. NGT with bilious secretions. NPO past midnight
--- NOTE | 2017-04-19 13:16 | PN ---
DATE: REASON FOR CONSULTATION AND FOLLOWUP: Small bowel resection, status post gastrojejunostomy. SUBJECTIVE: The patient is awake and alert. Denies any chest pain, any shortness of breath, or any palpitations. OBJECTIVE: GENERAL: Not in apparent distress. VITAL SIGNS: As follows, temperature afebrile, heart rate 101, blood pressure 112/79. HEENT: PERRLA. Extraocular muscles intact. NECK: Supple. No carotid bruit or thyromegaly. CHEST: Clear to auscultation. HEART: S1, S2 regular. ABDOMEN: Soft. EXTREMITIES: Clubbing and cyanosis negative. LABORATORY DATA: Blood workup as follows; WBC 7.6, hemoglobin 9.9, hematocrit 28.1, platelet count is 359,000. Chemistry shows sodium 140, potassium 3.1, chloride 101, carbon dioxide 37, anion gap , BUN 22, creatinine 0.5. Total protein 4.7 and albumin 2.4. IMPRESSION: Severe protein-calorie malnutrition, which was not present on admission; anemia; hypokalemia; perforation of small bowel obstruction, status post gastrojejunostomy; respiratory insufficiency. RECOMMENDATIONS: Monitor H and H, monitor electrolytes, continue broad-spectrum antibiotics and low-dose beta-michelle, metoprolol 25 mg twice a day, antibiotics. Increase nutrition support. Overall, the patient's condition is critical, long-term prognosis guarded. Code status DNR/DNI. We will supplement potassium. CVS status is stable. We will consider sign off soon. Velvet Bey MD
--- NOTE | 2017-04-19 13:18 | CP.PCM.PN ---
Subjective - Date & Time of Evaluation Date of Evaluation: 04/19/17 Time of Evaluation: 13:18 - Subjective Subjective: General surgery progress note for Dr. Toscano Patient seen and examined at bedside. Patient denies any pain or fever or chills. He does state that he would like to drink water. Objective - Vital Signs/Intake and Output Vital Signs (last 24 hours): Temp Pulse Resp BP Pulse Ox 97.6 F 101 H 20 112/79 99 04/19/17 06:48 04/19/17 10:07 04/19/17 06:48 04/19/17 10:07 04/19/17 06:48 Intake and Output: 04/19/17 04/19/17 06:59 18:59 Intake Total 0 650 Output Total 200 Balance -200 650 - Medications Medications: Current Medications Albuterol/Ipratropium (Duoneb 3 Mg/0.5 Mg (3 Ml) Ud) 3 ml IH [id number] [facility] Last Admin: 04/19/17 07:25 Dose: 3 ml Carbamazepine (Tegretol) 100 mg PO BID [facility] PRN Reason: Protocol Last Admin: 04/19/17 10:09 Dose: Not Given Folic Acid (Folic Acid) 1 mg PO DAILY [facility] Last Admin: 04/19/17 10:07 Dose: Not Given Heparin Sodium (Porcine) (Heparin) 5,000 units SC Q8 [facility] PRN Reason: Protocol Last Admin: 04/19/17 06:02 Dose: 5,000 units Metronidazole (Flagyl) 500 mg in 100 mls @ 100 mls/hr IVPB Q8 [facility] PRN Reason: Protocol Last Admin: 04/19/17 06:00 Dose: 100 mls/hr Meropenem/Sodium Chloride (Meropenem 1g/Ns 100ml Ivpb) 1 gm in 100 mls @ 100 mls/hr IVPB Q8 [facility] PRN Reason: Protocol Stop: 04/25/17 09:38 Last Admin: 04/19/17 06:00 Dose: 100 mls/hr Vancomycin HCl (Vancomycin 1gm) 1 gm in 250 mls @ 167 mls/hr IVPB Q12H [facility] PRN Reason: Protocol Stop: 04/25/17 09:46 Last Admin: 04/19/17 10:37 Dose: 167 mls/hr Fat Emulsion Intravenous (Intralipid 20%) 250 mls @ 21 mls/hr IV MWF@1800 [facility] Last Admin: 04/17/17 20:55 Dose: 21 mls/hr Amino Acids (Clinimix 4.25/5 % "E" (1000 Ml)) 1,000 mls @ 42 mls/hr IV .[id number] [facility] Stop: 04/20/17 00:01 Last Admin: 04/18/17 17:44 Dose: 42 mls/hr Potassium Chloride (Potassium Chloride 10 Meq/100 Ml) 10 meq in 100 mls @ 50 mls/hr IVPB Q2H [facility] Stop: 04/19/17 13:59 Last Admin: 04/19/17 12:57 Dose: 50 mls/hr Ketorolac Tromethamine (Toradol) 30 mg IVP Q6 [facility] Last Admin: 04/19/17 06:01 Dose: 30 mg Lidocaine (Lidoderm) 1 ea TD 2200 [facility] Last Admin: 04/18/17 23:43 Dose: 1 ea Metoprolol Tartrate (Lopressor) 25 mg PO BID [facility] Last Admin: 04/19/17 10:07 Dose: Not Given Mirtazapine (Remeron) 15 mg PO HS [facility] Last Admin: 04/18/17 21:32 Dose: Not Given Morphine Sulfate (Morphine) 4 mg IVP Q4H PRN PRN Reason: Pain, severe (8-10) Last Admin: 04/19/17 10:29 Dose: 4 mg Nicotine (Nicoderm Cq) 1 patch TD DAILY [facility] Last Admin: 04/19/17 10:39 Dose: 1 patch Ondansetron HCl (Zofran Inj) 4 mg IVP Q4H PRN PRN Reason: Nausea/Vomiting Last Admin: 04/16/17 20:15 Dose: 4 mg Oxycodone/Acetaminophen (Percocet 10/325 Mg Tab) 1 tab PO Q4H PRN PRN Reason: Pain, moderate (4-7) Last Admin: 04/18/17 15:49 Dose: 1 tab Pantoprazole Sodium (Protonix Inj) 40 mg IVP Q12 [facility] Last Admin: 04/19/17 11:02 Dose: 40 mg Polyethylene Glycol (Miralax) 17 gm PO DAILY [facility] Last Admin: 04/19/17 10:08 Dose: Not Given Tamsulosin HCl (Flomax) 0.4 mg PO DAILY [facility] Last Admin: 04/19/17 10:38 Dose: Not Given - Labs Labs: 04/18/17 06:40 04/19/17 05:00 PT 12.5 SECONDS (9.4-12.5) 04/09/17 15:35 INR 1.09 (0.93-1.08) H 04/09/17 15:35 APTT 32.7 Seconds (25.1-36.5) 04/09/17 15:35 - Constitutional Appears: Well - Head Exam Head Exam: ATRAUMATIC, NORMAL INSPECTION, NORMOCEPHALIC - Eye Exam Eye Exam: EOMI, Normal appearance, PERRL Pupil Exam: NORMAL ACCOMODATION, PERRL - ENT Exam ENT Exam: Mucous Membranes Moist, Normal Exam - Neck Exam Neck Exam: Full ROM, Normal Inspection. absent: Lymphadenopathy - Respiratory Exam Respiratory Exam: Clear to Ausculation Bilateral, NORMAL BREATHING PATTERN - Cardiovascular Exam Cardiovascular Exam: REGULAR RHYTHM, +S1, +S2. absent: Murmur - GI/Abdominal Exam GI & Abdominal Exam: Soft, Normal Bowel Sounds. absent: Tenderness Additional comments: incision is clean dry intact - Rectal Exam Rectal Exam: NORMAL INSPECTION - Exam Exam: Circumcision, NORMAL INSPECTION External exam: NORMAL EXTERNAL EXAM Speculum exam: NORMAL SPECULUM EXAM Bimanual exam: NORMAL BIMANUAL EXAM - Extremities Exam Extremities Exam: Full ROM, Normal Capillary Refill, Normal Inspection. absent : Joint Swelling, Pedal Edema - Back Exam Back Exam: NORMAL INSPECTION - Neurological Exam Neurological Exam: Alert, Awake, CN II-XII Intact, Normal Gait, Oriented x3 - Psychiatric Exam Psychiatric exam: Normal Affect, Normal Mood - Skin Skin Exam: Dry, Intact, Normal Color, Warm Assessment and Plan - Assessment and Plan (Free Text) Assessment: 61 y/o male with SMA syndrome s/p GJ POD8 now with post operative ileus and aspiration pneumonia, improving. Still draining quite a bit of fluid from NG tube Plan: -cont NGT on suction, OK for ICE chips only -monitor for bowel function -when bowel function returns, may clamp NGT -cont to wean supplemental O2 as tolerated -cont abx -aggressive chest PT, IS use -ok to Be OOB to chair -CT with and without PO contrast to assess anastomosis and progression/ resolution of ileus, may need J-Tube -rest of recs per Dr. Toscano
--- NOTE | 2017-04-19 18:11 | CT ---
PROCEDURE: CT Abdomen and Pelvis with contrast HISTORY: post op ex lap, gastrojejunostomy, ileus COMPARISON: 04/09/2017. TECHNIQUE: CT scan of the abdomen and pelvis was performed after intravenous administration of contrast. Oral contrast was administered. Coronal and sagittal reformatted images were obtained. Contrast dose: 100 mL Omnipaque 350 Radiation dose: Total exam DLP = 334.28 mGy-cm. This CT exam was performed using one or more of the following dose reduction techniques: Automated exposure control, adjustment of the mA and/or kV according to patient size, and/or use of iterative reconstruction technique. FINDINGS: LOWER THORAX: Bilateral small pleural effusions, larger on the left with compressive atelectasis in the lower lobes. LIVER: The liver is normal in size and there is homogeneous enhancement. No intrahepatic biliary ductal dilatation. GALLBLADDER AND BILE DUCTS: There are no calcified gallstones. PANCREAS: The pancreas is normal in size and there is homogeneous enhancement without ductal dilatation or focal mass. SPLEEN: Normal in size with homogeneous enhancement. ADRENALS: No discrete nodule. KIDNEYS AND URETERS: Both kidneys are normal in size and there is homogeneous enhancement without focal mass or hydronephrosis. There is a subcentimeter simple cyst in the upper pole of the left kidney. VASCULATURE: Again seen is a fusiform infrarenal aortic aneurysm with peripheral thrombus. BOWEL: The stomach is markedly distended and filled with contrast material. There are postsurgical changes in the distal body of the stomach. Contrast material passes into the duodenum. The 2nd portion of the duodenum is markedly dilated. The small bowel loops appears normal in caliber. Dense contrast material is seen in the colon. APPENDIX: Normal appendix. PERITONEUM: No free fluid. No free air. LYMPH NODES: No enlarged lymph nodes. BLADDER: Unremarkable. REPRODUCTIVE: Unremarkable. BONES: No acute fracture. Multilevel degenerative changes. OTHER FINDINGS: None. IMPRESSION: 1. Mild distention of the stomach and 2nd portion of the duodenum with normal caliber small bowel loops and colon. 2. Postsurgical changes in the distal body of the stomach. 3. Small bilateral pleural effusions with compressive atelectasis in the lung bases, larger on the left.
--- NOTE | 2017-04-19 19:56 | PN ---
DATE: SUBJECTIVE: The patient is seen in bed, in no acute distress, nontoxic. The patient was seen earlier this morning. PHYSICAL EXAMINATION: GENERAL: He is awake; however, weak, chronically ill, debilitated, cachectic. VITAL SIGNS: Temperature of 97, blood pressure is 112/70, respiratory rate of 16. HEENT: Unremarkable. NECK: Supple. LUNGS: Have decreased breath sounds. HEART: Normal S1 and S1. ABDOMEN: Soft. LABORATORY DATA: Reveals a white count of 7.6, hemoglobin of 9, platelets of 359. Coagulation is noted. Chemistries reveals a BUN of 22, creatinine of 0.5, and procalcitonin is 0.77. Urinalysis is noted. HIV is negative. Microbiology reveals there is yeast in the blood cultures. The repeat blood cultures are no growth. The patient had a chest x-ray, which shows diminished mid to inferior right-sided infiltrate with none on the left. ASSESSMENT AND PLAN: This is a 61-year-old male with a history of hypertension, cerebrovascular accident, left-sided weakness, anxiety, arthritis, admitted with a small bowel obstruction, abdominal surgery, and open gastrojejunostomy procedure, day #8 with sepsis, fungemia, with yeast in the blood. Repeat blood cultures are negative. Status post abdominal surgery superior mesenteric artery syndrome and status post gastrojejunostomy post procedure day # on Mycamine, awaiting for identification and sensitivity of the yeast in the blood. The patient is also on Flagyl, meropenem, and vancomycin day #4. We will discontinue the Flagyl and repeat a procalcitonin, last procalcitonin was 0.77. We will follow with you. Fidencio Mckenna MD
[2017-04-19] MEDS: Morphine 4 mg/ml ISec IVP PRN (20:25)
[2017-04-19] MEDS: Fat Emulsion 20% IV 250 ML IV SCH (22:00)
[2017-04-19] MEDS: Lidocaine 5% Patch TD SCH (22:32)
[2017-04-20] MEDS: Morphine 4 mg/ml ISec IVP PRN ×2 (00:33→21:33)
[2017-04-20] MEDS: Albuterol-Ipratrop 3 mg / 0.5 (3 ml) UD IH SCH ×4 (02:05→20:35)
--- NOTE | 2017-04-20 02:13 | PN ---
DATE: SUBJECTIVE: The patient is a 61-year-old male. The patient was seen and examined at the bedside, having NG tube suction, is n.p.o., thirsty, asking for water, no acute event happened over the night. Outflow from the NG tube noted to be bilious. Denies abdominal pain. No nausea or vomiting. No chest pain. No palpitation or shortness of breath. He is scheduled for jejunostomy tube placement tomorrow. Discussion done with Dr. Hernández. PHYSICAL EXAMINATION: VITAL SIGNS: Temperature 97.6, pulse 101, respiratory rate 20, blood pressure 112/79, pulse oximetry of 99. HEENT: Head is normocephalic, atraumatic. Eyes: PERRLA. Extraocular muscles are intact. Conjunctivae are clear. Nose is patent. Mucous membranes are moist. NECK: Supple. No carotid bruits, JVD, or thyromegaly. CHEST: Bilaterally symmetrical. HEART: S1, S2 positive. LUNGS: Clear to auscultation. ABDOMEN: Soft. Bowel sounds present. No organomegaly. EXTREMITIES: No edema. No cyanosis. NEUROLOGIC: The patient is awake, alert. Moving all 4 extremities. No focal deficits. Obeying simple orders. MEDICATIONS: DuoNeb, Tegretol, folic acid, heparin, Flagyl, meropenem, vancomycin, potassium, Toradol, Lidoderm, Remeron, morphine, nicotine patch, Zofran, oxycodone, pantoprazole and Flomax. LABORATORY DATA: White blood cell is 7.6, hemoglobin 9.1, hematocrit 28.1 and platelet 359. Sodium 143, potassium 3.1, BUN 22, creatinine 0.9, and glucose 99. ASSESSMENT AND PLAN: Mr. Brandyn Wang is a 61-year-old male with anemia, hypokalemia, renal insufficiency, history of hypertension, hypercholesterolemia, cerebrovascular accident with residual left-sided weakness, chronic back pain, has pain associated with nausea, vomiting and weight loss secondary to superior mesenteric artery syndrome, now status post gastrojejunostomy, postoperative day #9; persistent poor p.o. intake and bilious vomiting,malnutrition, aspiration pneumonia, anemia. Patient is schedule for endoscopy tomorrow for jejunal tube placement. Risks, benefit, and alternatives of procedures have been discussed with the patient and his daughter by GI. Patient is n.p.o. Continue proton pump inhibitor for gastrointestinal prophylaxis. Length of time discussion done with Dr. Hernández, beam dyer and her team. Appreciated Dr. Hernández's and Dr. Mckenna's input. Patient went for CAT scan of the abdomen and pelvis. Mild distension of the stomach and second portion of the duodenum with normal-caliber small bowel loops and colon, post surgical changes of the distal body of the stomach; small bilateral pleural effusion with compressive atelectasis in the lung bases, large on the left. Meanwhile, continue present treatment. Repeat labs. We will follow up. Radha Lantigua MD
--- NOTE | 2017-04-20 02:26 | PN ---
DATE: PULMONARY PROGRESS NOTE REFERRING PHYSICIAN: Radha Lantigua MD. SUBJECTIVE: He is lying in the bed, head at 45 degrees. P.o. contrast been given, waiting for CT of the abdomen. Overall, feels better. No vomiting. No chest pain. Breathing is better. Soft abdomen. No bowel movement. No leg pain or leg swelling. OBJECTIVE: GENERAL: In no acute distress. VITAL SIGNS: Temperature is 98, heart rate is 101, respiratory rate is 20, blood pressure 112/79, pulse ox is 99% on 3 L nasal cannula. HEENT: Moist mucous membrane. Crowded airway. NECK: Supple. No JVD. LUNGS: Have a few scattered crackles at the bases and scattered rhonchi. HEART: S1 and S2. ABDOMEN: Positive bowel sound. Not much tender. EXTREMITIES: There is no edema. NEUROLOGIC: Awake and alert. Follows simple command. MEDICATIONS: He is on Clinimix 42 mL/hour, DuoNeb q. 6 hours, Flomax 0.4 mg daily, folic acid 1 mg daily, heparin 5000 units subcu q. 8 hours, Lidoderm patch daily, metoprolol tartrate 25 mg twice a day, meropenem is 1 g q. 8 hours, MiraLax 17 g daily, morphine 4 mg q. 4 hours p.r.n., Nicoderm patch daily, Percocet 10/325 one tab q. 4 hours p.r.n., Protonix 40 mg q. 12 hours, Remeron 15 mg at bedtime, Tegretol 100 mg twice a day, Tramadol mg q. 6 hours, vancomycin 1 g IV q. 12 hours, Zofran p.r.n. basis. LABORATORY DATA: Shows sodium 143, potassium 3.1, chloride 101, bicarbonate 37, BUN is 22, creatinine 0.5, calcium is 8.3, phosphorus 3.2. AST 22, ALT 22, alkaline phosphatase is 124, albumin is 2.4. CAT scan of the abdomen and pelvis report is already back, which shows mild distention of the stomach and second portion of the duodenum, with normal caliber small bowel loop and colon, postsurgical changes in the distal body of the stomach, small bilateral pleural effusion atelectasis over the lung bases. IMPRESSION AND PLAN: Multilobe aspiration pneumonia, superior mesenteric artery syndrome, status post gastrojejunostomy. CT scan of the abdomen seems unremarkable. So, he probably has gastroparesis. Pulmonary point of view, doing well. Continue supplemental oxygen, bronchodilator, antibiotics. Gastric prophylaxis. Sequential compression device to lower extremity. May benefit from gastric stimulant like Reglan; we will have GI and Surgery make that decision. Thank you and we will follow with you. Velvet Castillo MD
[2017-04-20] MEDS: Meropenem 1g/NS 100mL IVPB 1 GM/100 ML PIGGYBACK IVPB SCH ×3 (06:07→21:34)
[2017-04-20 07:02] LABS: ALB/GLOB RATIO 1.1 (1.1-1.8); ALBUMIN 2.6 g/dL (3.0-4.8); ALT/SGPT 24 U/L (7-56); AST/SGOT 22 U/L (17-59); BLOOD UREA NITROGEN 19 mg/dL (7-21); CALCIUM 8.9 mg/dL (8.4-10.5); GFR AFRICAN-AMERICAN > 60; GFR NON-AFRICAN AMERICAN > 60
--- NOTE | 2017-04-20 07:21 | CP.PCM.PN ---
Subjective - Date & Time of Evaluation Date of Evaluation: 04/20/17 Time of Evaluation: 07:18 - Subjective Subjective: GI Progress note - Blaine Naylor PGY2 Reason for consult: SMA syndrome Patient seen and examined at bedside this morning. No acute overnight events reported. Bilious output from NGT. Patient reported mild back pain and dehydration. Discussed that he is scheduled for jejunostomy tube placement for later today. 12point ROS as per above otherwise negative. Objective - Vital Signs/Intake and Output Vital Signs (last 24 hours): Temp Pulse Resp BP Pulse Ox 97.4 F L 86 20 115/78 99 04/19/17 22:00 04/19/17 22:00 04/19/17 22:00 04/19/17 22:00 04/19/17 22:00 Intake and Output: 04/20/17 04/20/17 06:59 18:59 Output Total 600 Balance -600 - Medications Medications: Current Medications Albuterol/Ipratropium (Duoneb 3 Mg/0.5 Mg (3 Ml) Ud) 3 ml IH [id number] [facility] Last Admin: 04/20/17 07:12 Dose: 3 ml Carbamazepine (Tegretol) 100 mg PO BID [facility] PRN Reason: Protocol Last Admin: 04/19/17 18:27 Dose: Not Given Folic Acid (Folic Acid) 1 mg PO DAILY [facility] Last Admin: 04/19/17 10:07 Dose: Not Given Heparin Sodium (Porcine) (Heparin) 5,000 units SC Q8 [facility] PRN Reason: Protocol Last Admin: 04/20/17 06:07 Dose: 5,000 units Meropenem/Sodium Chloride (Meropenem 1g/Ns 100ml Ivpb) 1 gm in 100 mls @ 100 mls/hr IVPB Q8 [facility] PRN Reason: Protocol Stop: 04/25/17 09:38 Last Admin: 04/20/17 06:07 Dose: 100 mls/hr Vancomycin HCl (Vancomycin 1gm) 1 gm in 250 mls @ 167 mls/hr IVPB Q12H [facility] PRN Reason: Protocol Stop: 04/25/17 09:46 Last Admin: 04/19/17 22:35 Dose: 167 mls/hr Ketorolac Tromethamine (Toradol) 30 mg IVP Q6 [facility] Last Admin: 04/20/17 06:13 Dose: Not Given Lidocaine (Lidoderm) 1 ea TD 2200 [facility] Last Admin: 04/19/17 22:32 Dose: Not Given Metoprolol Tartrate (Lopressor) 25 mg PO BID [facility] Last Admin: 04/19/17 18:26 Dose: Not Given Mirtazapine (Remeron) 15 mg PO HS [facility] Last Admin: 04/19/17 22:35 Dose: Not Given Morphine Sulfate (Morphine) 4 mg IVP Q4H PRN PRN Reason: Pain, severe (8-10) Last Admin: 04/20/17 00:33 Dose: 4 mg Nicotine (Nicoderm Cq) 1 patch TD DAILY [facility] Last Admin: 04/19/17 10:39 Dose: 1 patch Ondansetron HCl (Zofran Inj) 4 mg IVP Q4H PRN PRN Reason: Nausea/Vomiting Last Admin: 04/16/17 20:15 Dose: 4 mg Oxycodone/Acetaminophen (Percocet 10/325 Mg Tab) 1 tab PO Q4H PRN PRN Reason: Pain, moderate (4-7) Last Admin: 04/18/17 15:49 Dose: 1 tab Pantoprazole Sodium (Protonix Inj) 40 mg IVP Q12 [facility] Last Admin: 04/19/17 22:34 Dose: 40 mg Polyethylene Glycol (Miralax) 17 gm PO DAILY [facility] Last Admin: 04/19/17 10:08 Dose: Not Given Tamsulosin HCl (Flomax) 0.4 mg PO DAILY [facility] Last Admin: 04/19/17 10:38 Dose: Not Given - Labs Labs: 04/18/17 06:40 04/20/17 05:45 PT 12.5 SECONDS (9.4-12.5) 04/09/17 15:35 INR 1.09 (0.93-1.08) H 04/09/17 15:35 APTT 32.7 Seconds (25.1-36.5) 04/09/17 15:35 - Constitutional Appears: Cachectic - Head Exam Head Exam: ATRAUMATIC, NORMOCEPHALIC - Eye Exam Eye Exam: EOMI Pupil Exam: PERRL - ENT Exam ENT Exam: Mucous Membranes Dry - Respiratory Exam Respiratory Exam: absent: Rales, Rhonchi, Wheezes - Cardiovascular Exam Cardiovascular Exam: +S1, +S2. absent: Gallop, Rubs - GI/Abdominal Exam GI & Abdominal Exam: Soft. absent: Distended, Rigid, Tenderness, Rebound - Extremities Exam Extremities Exam: absent: Pedal Edema, Tenderness - Neurological Exam Neurological Exam: Alert, Awake, Oriented x3 - Psychiatric Exam Psychiatric exam: Normal Affect, Normal Mood - Skin Skin Exam: Dry, Intact, Normal Color, Warm Assessment and Plan - Assessment and Plan (Free Text) Plan: 61yo male with history of hypertension, hyperlipidemia, CVA w/ residual left- sided weakness, chronic back pain who was admitted with abdominal pain associated with nausea, vomiting and weight loss secondary to SMA syndrome now s /p gastrojenuostomy (POD#10) with persistent poor oral intake and bilious vomiting. 1. SMA syndrome 2. Malnutrition 3. Aspiration pneumonia 4. Anemia Plan: -Scheduled for jejunostomy tube placement today -Risks, benefits and alternatives of the procedure have been discussed with patient and his daughter -NPO -Continue PPI for GI prophylaxis Patient seen and case discussed/reviewed with attending, Dr. Ozuna
[2017-04-20 07:56] LABS: MEAN CELL VOLUME 91.6 fl (80.0-105.0); MEAN CORPUSCULAR HEMOGLOBIN 28.9 pg (25.0-35.0); MEAN CORPUSCULAR HGB CONC 31.6 g/dl (31.0-37.0); RBC 3.11 10^6/uL (3.5-6.1); RED CELL DISTRIBUTION WIDTH 17.7 % (11.5-14.5)
--- NOTE | 2017-04-20 09:46 | CP.PCM.PN ---
Subjective - Date & Time of Evaluation Date of Evaluation: 04/20/17 Time of Evaluation: 09:43 - Subjective Subjective: Surgery: Dr. Toscano Pt seen and examined. Resting comfortably in bed. Pain controlled. Pt is passing flatus. He is scheduled for J-tube placement today. Objective - Vital Signs/Intake and Output Vital Signs (last 24 hours): Temp Pulse Resp BP Pulse Ox 97.4 F L 86 20 115/78 99 04/19/17 22:00 04/19/17 22:00 04/19/17 22:00 04/19/17 22:00 04/19/17 22:00 Intake and Output: 04/20/17 04/20/17 06:59 18:59 Output Total 600 Balance -600 - Medications Medications: Current Medications Albuterol/Ipratropium (Duoneb 3 Mg/0.5 Mg (3 Ml) Ud) 3 ml IH [id number] [facility] Last Admin: 04/20/17 07:12 Dose: 3 ml Carbamazepine (Tegretol) 100 mg PO BID [facility] PRN Reason: Protocol Last Admin: 04/19/17 18:27 Dose: Not Given Folic Acid (Folic Acid) 1 mg PO DAILY [facility] Last Admin: 04/19/17 10:07 Dose: Not Given Heparin Sodium (Porcine) (Heparin) 5,000 units SC Q8 [facility] PRN Reason: Protocol Last Admin: 04/20/17 06:07 Dose: 5,000 units Meropenem/Sodium Chloride (Meropenem 1g/Ns 100ml Ivpb) 1 gm in 100 mls @ 100 mls/hr IVPB Q8 [facility] PRN Reason: Protocol Stop: 04/25/17 09:38 Last Admin: 04/20/17 06:07 Dose: 100 mls/hr Vancomycin HCl (Vancomycin 1gm) 1 gm in 250 mls @ 167 mls/hr IVPB Q12H [facility] PRN Reason: Protocol Stop: 04/25/17 09:46 Last Admin: 04/19/17 22:35 Dose: 167 mls/hr Potassium Chloride (Potassium Chloride 10 Meq/100 Ml) 10 meq in 100 mls @ 50 mls/hr IVPB Q2H [facility] Stop: 04/20/17 12:29 Ketorolac Tromethamine (Toradol) 30 mg IVP Q6 [facility] Last Admin: 04/20/17 06:13 Dose: Not Given Lidocaine (Lidoderm) 1 ea TD 2200 [facility] Last Admin: 04/19/17 22:32 Dose: Not Given Metoprolol Tartrate (Lopressor) 25 mg PO BID [facility] Last Admin: 04/19/17 18:26 Dose: Not Given Mirtazapine (Remeron) 15 mg PO HS [facility] Last Admin: 04/19/17 22:35 Dose: Not Given Morphine Sulfate (Morphine) 4 mg IVP Q4H PRN PRN Reason: Pain, severe (8-10) Last Admin: 04/20/17 00:33 Dose: 4 mg Nicotine (Nicoderm Cq) 1 patch TD DAILY [facility] Last Admin: 04/19/17 10:39 Dose: 1 patch Ondansetron HCl (Zofran Inj) 4 mg IVP Q4H PRN PRN Reason: Nausea/Vomiting Last Admin: 04/16/17 20:15 Dose: 4 mg Oxycodone/Acetaminophen (Percocet 10/325 Mg Tab) 1 tab PO Q4H PRN PRN Reason: Pain, moderate (4-7) Last Admin: 04/18/17 15:49 Dose: 1 tab Pantoprazole Sodium (Protonix Inj) 40 mg IVP Q12 [facility] Last Admin: 04/19/17 22:34 Dose: 40 mg Polyethylene Glycol (Miralax) 17 gm PO DAILY [facility] Last Admin: 04/19/17 10:08 Dose: Not Given Tamsulosin HCl (Flomax) 0.4 mg PO DAILY [facility] Last Admin: 04/19/17 10:38 Dose: Not Given - Labs Labs: 04/20/17 05:45 04/20/17 05:45 PT 12.5 SECONDS (9.4-12.5) 04/09/17 15:35 INR 1.09 (0.93-1.08) H 04/09/17 15:35 APTT 32.7 Seconds (25.1-36.5) 04/09/17 15:35 - Constitutional Appears: Non-toxic, No Acute Distress, Cachectic, Chronically Ill - Head Exam Head Exam: ATRAUMATIC, NORMOCEPHALIC - ENT Exam ENT Exam: Mucous Membranes Moist - Respiratory Exam Respiratory Exam: Respiratory Distress, NORMAL BREATHING PATTERN. absent: Accessory Muscle Use - GI/Abdominal Exam GI & Abdominal Exam: Soft. absent: Distended, Firm, Guarding, Rigid, Tenderness , Rebound Additional comments: midline incision C/D/I - Neurological Exam Neurological Exam: Alert, Awake, Oriented x3 - Psychiatric Exam Psychiatric exam: Normal Mood - Skin Skin Exam: Dry, Warm Assessment and Plan - Assessment and Plan (Free Text) Assessment: 61M w. SMA syndrome s/p Gastrojejunostomy, POD#10, w/ persistent poor PO intake -NGT 2000cc/24hr bilious, keep to suction, monitor output -c/w abx -For J-Tube today -c/w pain management -PT/OT as tolerated, OOB to chair -d/w attending Zemaitis PGY3
[2017-04-20] MEDS: POLYETHYLENE GLYCOL 3350 17 GM/Dose PACKET PO SCH (10:24)
--- NOTE | 2017-04-20 12:18 | PN ---
DATE: 04/20/2017 REASON FOR CONSULTATION AND FOLLOWUP: Small bowel resection with status post gastrojejunostomy. SUBJECTIVE: The patient denies any chest pain. Wants pain medication. OBJECTIVE: GENERAL: Not in any apparent distress. VITAL SIGNS: Temperature afebrile, heart rate 96, blood pressure 130/93. HEENT: PERRLA. Extraocular muscles intact. NECK: Supple. No carotid bruit or thyromegaly. CHEST: Clear to auscultation. HEART: S1 and S2 regular. ABDOMEN: Soft. EXTREMITIES: Clubbing and cyanosis negative. LABORATORY DATA: Blood workup as follows; WBC 10.0, hemoglobin 9, hematocrit 28.5, platelet count 389. Chemistry shows sodium 140, potassium 3.3, chloride 98, carbon dioxide 33, anion gap of 13, BUN 19, creatinine 0.5, total protein 5, albumin 2.6, albumin and globulin ratio 1.0. IMPRESSION: Protein-calorie malnutrition, not present on admission; status post perforation of the bowel. Status post small bowel resection, status post partial obstruction, status post gastrojejunostomy. Severe protein-calorie malnutrition was not present on admission. Anemia, hypokalemia, respiratory insufficiency. RECOMMENDATION: Monitor H and H. Monitor electrolytes. Continue low dose of beta michelle. Increase nutrition support. Overall, the patient's condition is critical, long-term prognosis is guarded. Code status is DNR/DNI. Aggressive medical treatment. We will sign off. No anginal symptom. No arrhythmia. No heart failure. We will be glad to follow p.r.n. Thank you Dr. Lantigua for providing us the opportunity in taking care of the patient, Brandyn Wang. Velvet Bey MD
[2017-04-20] MEDS: Vancomycin 1gm in NS 250ml 1 GM/250 ML BAG IVPB SCH ×2 (13:06→22:34)
--- NOTE | 2017-04-20 13:57 | PN ---
DATE: SUBJECTIVE: Brandyn Wang is seen on the floor. His wound looks beautiful. The abdomen is somewhat distended. He has an NG tube in, it is draining bilious probably related to CAT scan done yesterday. PHYSICAL EXAMINATION: Vital signs are normal with pulse of about 90. He is making good urine, [place] catheter. Passing gas without a bowel movement. DATA: Hemoglobin is stable. White count is normal at 10. His CAT scan showed dye going right into the colon, but a dilated stomach. We will plan to continue decompression for a while. Dr. Ozuna is going to place this tube. He needs activity out of bed. He is disabled according to him and is not interested in doing much for himself, regardless of which we will try physical therapy. Rashawn Toscano MD
--- NOTE | 2017-04-20 14:02 | CP.PCM.PCO ---
Physician Communication Note - Physician Communication Note Physician Communication Note: Spoke with odette/CORNELIA Woods. Ok to reverse DNR for procedure.
[2017-04-20] MEDS ORDERED: Propofol 10 mg/ml Inj (20 ML) ONE ×2 (14:04→14:53)
[2017-04-20] MEDS: AMINO IV SCH (18:18)
[2017-04-20] MEDS: MULTIVITAMIN IV SCH (18:18)
[2017-04-20] MEDS: DEXT IV SCH (18:18)
[2017-04-20] MEDS: Lidocaine 5% Patch TD SCH (22:33)
--- NOTE | 2017-04-20 22:54 | PN ---
DATE: SUBJECTIVE: The patient is a 61-year-old male. The patient seen and examined on the bedside, looking comfortable. The patient is going to go for procedure for esophagogastroduodenoscopy with biopsy, insertion of jejunostomy tube. No fever, no chills, no headache, no dizziness, no swelling of the legs. PHYSICAL EXAMINATION: VITAL SIGNS: Temperature 97, pulse 78, blood pressure 114/79, respiratory rate 14. HEENT: Head normocephalic, atraumatic. Eyes, PERRLA. Extraocular movements are intact. Conjunctivae clear. Nose patent. Mucous membrane moist. NECK: Supple. No carotid bruits, JVD or thyromegaly. CHEST: Bilaterally symmetrical. HEART: S1, S2 positive. LUNGS: Clear to auscultation. ABDOMEN: Soft. Bowel sounds are positive. No organomegaly. EXTREMITIES: No edema. No cyanosis. NEUROLOGIC: The patient is awake and alert. Obeys simple orders. MEDICATIONS: Flomax, folic acid, heparin, Lidoderm, Lopressor, MiraLax, morphine, oxycodone. LABORATORY DATA: White blood cells 10.0, hemoglobin 9.0, hematocrit 28.5, platelets 389. Sodium 140, potassium 3.3, BUN 19, creatinine 0.5, glucose 96. ASSESSMENT AND PLAN: Mr. Brandyn Wang is a 61-year-old male with anemia, hypokalemia, proteinuria, ketonuria, hematuria with superior mesenteric artery syndrome. Dr. George is on the case. He spoke to the daughter/POA, Peggy, who is okay to reverse do not disturb for procedure. The patient went for esophagogastroduodenoscopy with biopsy with insertion of jejunostomy tube, multi lobe aspiration pneumonia, superior mesenteric artery syndrome - status post gastrojejunostomy. CT scan of abdomen seemed unremarkable. Continue supplemental oxygen, bronchodilators, antibiotics, gastric prophylaxis, sequential compression device of lower extremity. We will continue present treatments. Repeat labs. We will follow up. Radha Lantigua MD
[2017-04-20] MEDS: Sodium Chloride 0.9% 1,000 ML IV SCH (23:31)
--- NOTE | 2017-04-21 00:10 | PN ---
DATE: 04/20/2017 PULMONARY PROGRESS NOTE REFERRING PHYSICIAN: Radha Lantigua MD SUBJECTIVE: He is lying in the bed, head at 45 degrees. He has a nasogastric tube with intubator suction. Thirsty, was asking for water. No chest pain. Cough is better. Still has intermittent pain. Not passing any gas. Had no bowel movement. No leg pain or leg swelling. OBJECTIVE: GENERAL: In no acute distress. VITAL SIGNS: Temperature is 97, heart rate is 78, respiratory rate is 14, blood pressure 114/79, pulse ox 95% on 3 liters nasal cannula. HEENT: Moist mucous membrane. No ulcer or thrush noted. NECK: Supple. No JVD. LUNGS: Have a few scattered rhonchi. HEART: S1 and S2. ABDOMEN: Positive bowel sound. Incision site looks okay. EXTREMITIES: There is no edema. NEUROLOGIC: Awake, alert. Follows simple command. MEDICATIONS: He is on DuoNeb q. 6 hours, Flomax 0.4 mg daily, folic acid 1 mg daily, heparin 5000 units subcutaneously q. 8 hours, Intralipid 20% IV given, lidocaine patch at affected area, metoprolol tartrate 25 mg twice a day, meropenem 1 g IV q. 8 hours, MiraLax 17 g daily, morphine 12 mg q. 4 hours p.r.n., multivitamins daily, Nicoderm patch daily, Percocet 10/325 one tablet q. 4 hours p.r.n., Protonix 40 mg daily, Remeron 15 mg at bedtime, IV fluid normal saline 100 mL per hour, Tegretol 100 mg twice a day, Toradol 30 mg q. 6 hours, vancomycin 1 g IV q. 12 hours, Zofran p.r.n. basis. LABORATORY DATA: Shows hemoglobin 9.0, hematocrit 28.5, WBC 10.0, platelet count is 389. Sodium 140, potassium 3.3, chloride 98, bicarbonate 33, BUN is 19, creatinine 0.5, glucose is 96, calcium is 8.9, total bilirubin 0.3, AST 22, ALT 24, alkaline phosphatase is 138, albumin is 2.6, procalcitonin 0.21. HIV 1 and 2, non-reactive. Blood culture from 04/17/2017 has yeast. His endoscopy done shows extrinsic compression of the third part of duodenum due to SMA syndrome; gastrostomy was found characterized by the inflammation, edema, erythema and ulceration; stenosis of the afferent duodenal limb, PEG placement was successfully completed in the efferent duodenal limb. IMPRESSION AND PLAN: Multi-lobe aspiration pneumonia, superior mesenteric artery syndrome, status post jejunostomy tube placement, malnutrition. Continue bronchodilator, keep head at 45 degrees, aspiration precaution, gastric prophylaxis, SCDs to lower extremity, on antibiotics covering healthcare-associated organism. Gastroenterology and Surgical followup. Thank you and we will follow with you. Velvet Castillo MD
[2017-04-21] MEDS: Micafungin 100 MG in Sodium Chloride 0.9% 100 ML IV SCH (00:20)
[2017-04-21] MEDS: Albuterol-Ipratrop 3 mg / 0.5 (3 ml) UD IH SCH ×4 (02:20→19:23)
[2017-04-21] MEDS: Morphine 4 mg/ml ISec IVP PRN ×6 (03:19→21:36)
--- NOTE | 2017-04-21 04:02 | PN ---
DATE: 04/20/2017 SUBJECTIVE: The patient is in bed, in no acute distress, nontoxic. PHYSICAL EXAMINATION VITAL SIGNS: Temperature is 97, blood pressure is 114/70, respiratory rate 18. HEENT: Unremarkable. NECK: Supple. LUNGS: Have decreased breath sounds. HEART: Normal S1 and S2. ABDOMEN: Soft, nontender. LABORATORY DATA: Reveals the patient's white count of 10,000, hemoglobin of 9, platelets of 389. Chemistries reveal a BUN of 19, creatinine of 0.5. Urinalysis is noted. HIV is negative. Microbiology reveals the repeat blood cultures are yeast and now 2 sets of initial blood cultures are yeast. ASSESSMENT AND PLAN: This is a 61-year-old male with a history of hypertension, cerebrovascular accident, left-sided weakness, anxiety, arthritis, admitted with a small bowel obstruction, had abdominal surgery, open gastrojejunostomy procedure post day #9, now patient has sepsis with fungemia and 2 blood cultures are positive. Repeat blood cultures are also growing yeast and on Mycamine. The patient is also on meropenem. Review of orders reveals the patient's Mycamine has been discontinued by pharmacy under history of medications. Mycamine was ordered by me and it was discontinued, reached the stop date by missing one day and discontinued by pharmacy. We will restart the Mycamine today's dose now and we will also repeat blood cultures and we will need an echo. We will need an Ophthalmology exam because of the fungemia to rule out eye involvement. Echo result from 04/08/2017 is reviewed. Will need a repeat echocardiogram. Overall prognosis is quite poor. Fidencio Mckenna MD
--- NOTE | 2017-04-21 05:26 | CP.PCM.PN ---
<Blaine Naylor - Last Filed: 04/21/17 11:57> Subjective - Date & Time of Evaluation Date of Evaluation: 04/21/17 Time of Evaluation: 05:22 - Subjective Subjective: GI progress note for Dr. De La Torre's service - Blaine Naylor PGY2 Reason for consult: SMA syndrome Patient seen and examined this morning. No acute overnight events or new complaints reported. Tolerated J-tube placement well. Will start feeds today per nutrition recommendations. J-tube site is clean, dry and intact. NGT continues to drain bilious output. Reports low back pain. 12point ROS as per above otherwise negative Objective - Vital Signs/Intake and Output Vital Signs (last 24 hours): Temp Pulse Resp BP Pulse Ox 97.5 F L 68 20 104/65 92 L 04/20/17 23:26 04/20/17 23:26 04/20/17 23:26 04/20/17 23:26 04/20/17 23:26 Intake and Output: 04/20/17 04/21/17 18:59 06:59 Intake Total 1000 Balance 1000 - Medications Medications: Current Medications Albuterol/Ipratropium (Duoneb 3 Mg/0.5 Mg (3 Ml) Ud) 3 ml IH [id number] [facility] Last Admin: 04/21/17 02:20 Dose: 3 ml Carbamazepine (Tegretol) 100 mg PO BID [facility] PRN Reason: Protocol Last Admin: 04/20/17 18:19 Dose: Not Given Folic Acid (Folic Acid) 1 mg PO DAILY [facility] Last Admin: 04/20/17 10:24 Dose: Not Given Heparin Sodium (Porcine) (Heparin) 5,000 units SC Q8 [facility] PRN Reason: Protocol Last Admin: 04/20/17 21:32 Dose: 5,000 units Meropenem/Sodium Chloride (Meropenem 1g/Ns 100ml Ivpb) 1 gm in 100 mls @ 100 mls/hr IVPB Q8 [facility] PRN Reason: Protocol Stop: 04/25/17 09:38 Last Admin: 04/20/17 21:34 Dose: 100 mls/hr Vancomycin HCl (Vancomycin 1gm) 1 gm in 250 mls @ 167 mls/hr IVPB Q12H [facility] PRN Reason: Protocol Stop: 04/25/17 09:46 Last Admin: 04/20/17 22:34 Dose: 167 mls/hr Multivitamins/Vitamin C 10 ml/ (Amino Acids) 1,010 mls @ 41.667 mls/hr IV .Q24H [facility] Last Admin: 04/20/17 18:18 Dose: 41.667 mls/hr Fat Emulsion Intravenous (Intralipid 20%) 250 mls @ 20.833 mls/hr IV MWF@1800 [facility] Sodium Chloride (Sodium Chloride 0.9%) 1,000 mls @ 100 mls/hr IV .Q10H [facility] Last Admin: 04/20/17 23:31 Dose: Not Given Micafungin Sodium 100 mg/ (Sodium Chloride) 100 mls @ 100 mls/hr IV DAILY [facility] PRN Reason: Protocol Stop: 05/04/17 22:31 Last Admin: 04/21/17 00:20 Dose: 100 mls/hr Ketorolac Tromethamine (Toradol) 30 mg IVP Q6 [facility] Last Admin: 04/21/17 00:20 Dose: 30 mg Lidocaine (Lidoderm) 1 ea TD 2200 [facility] Last Admin: 04/20/17 22:33 Dose: Not Given Metoprolol Tartrate (Lopressor) 25 mg PO BID [facility] Last Admin: 04/20/17 18:18 Dose: Not Given Mirtazapine (Remeron) 15 mg PO HS [facility] Last Admin: 04/20/17 23:13 Dose: Not Given Morphine Sulfate (Morphine) 4 mg IVP Q4H PRN PRN Reason: Pain, severe (8-10) Last Admin: 04/21/17 03:19 Dose: 4 mg Nicotine (Nicoderm Cq) 1 patch TD DAILY [facility] Last Admin: 04/20/17 13:07 Dose: 1 patch Ondansetron HCl (Zofran Inj) 4 mg IVP Q4H PRN PRN Reason: Nausea/Vomiting Last Admin: 04/16/17 20:15 Dose: 4 mg Oxycodone/Acetaminophen (Percocet 10/325 Mg Tab) 1 tab PO Q4H PRN PRN Reason: Pain, moderate (4-7) Last Admin: 04/18/17 15:49 Dose: 1 tab Pantoprazole Sodium (Protonix Inj) 40 mg IVP Q12 [facility] Last Admin: 04/20/17 21:31 Dose: 40 mg Polyethylene Glycol (Miralax) 17 gm PO DAILY [facility] Last Admin: 04/20/17 10:24 Dose: Not Given Tamsulosin HCl (Flomax) 0.4 mg PO DAILY [facility] Last Admin: 04/20/17 10:24 Dose: Not Given - Labs Labs: 04/20/17 05:45 04/20/17 05:45 PT 12.5 SECONDS (9.4-12.5) 04/09/17 15:35 INR 1.09 (0.93-1.08) H 04/09/17 15:35 APTT 32.7 Seconds (25.1-36.5) 04/09/17 15:35 - Constitutional Appears: Cachectic, Chronically Ill - Head Exam Head Exam: ATRAUMATIC, NORMOCEPHALIC - Eye Exam Eye Exam: EOMI Pupil Exam: PERRL - ENT Exam ENT Exam: Mucous Membranes Dry Additional comments: NGT with bilious output - Respiratory Exam Respiratory Exam: absent: Rales, Rhonchi, Wheezes - Cardiovascular Exam Cardiovascular Exam: +S1, +S2. absent: Gallop, Rubs - GI/Abdominal Exam GI & Abdominal Exam: Soft. absent: Distended, Firm, Guarding, Rigid, Tenderness , Rebound Additional comments: j-tube site clean/dry/intact - Extremities Exam Extremities Exam: absent: Pedal Edema - Neurological Exam Neurological Exam: Alert, Awake, Oriented x3 - Psychiatric Exam Psychiatric exam: Normal Affect, Normal Mood - Skin Skin Exam: Dry, Normal Color, Warm Assessment and Plan - Assessment and Plan (Free Text) Plan: 61yo male with history of hypertension, hyperlipidemia, CVA w/ residual left- sided weakness, chronic back pain who was admitted with abdominal pain associated with nausea, vomiting and weight loss secondary to SMA syndrome s/p gastrojenuostomy (POD#11) with persistent poor PO intake and bilious vomiting. 1. SMA syndrome 2. Malnutrition 3. Aspiration pneumonia 4. Anemia Plan: -s/p jejunal tube placement (POD#1) -Tube feeds ordered per nutrition recommendations; advance as tolerated -Continue protonix 40mg PEJ BID -NGT to LIS due to ongoing obstruction -J-tube site clean, dry and intact -Recommend weaning TPN once tube feeds initiated and tolerated without issue -Recommend surgical follow up regarding high NGT output Patient seen and case discussed/reviewed with attending, Dr. De La Torre <Matheus De La Torre - Last Filed: 04/21/17 13:17> Objective - Vital Signs/Intake and Output Vital Signs (last 24 hours): Temp Pulse Resp BP Pulse Ox 97.7 F 79 20 119/77 92 L 04/21/17 06:00 04/21/17 11:10 04/21/17 06:00 04/21/17 11:10 04/20/17 23:26 Intake and Output: 04/21/17 04/21/17 06:59 18:59 Intake Total 920 Output Total 650 800 Balance 270 -800 - Medications Medications: Current Medications Albuterol/Ipratropium (Duoneb 3 Mg/0.5 Mg (3 Ml) Ud) 3 ml IH [id number] [facility] Last Admin: 04/21/17 07:22 Dose: 3 ml Carbamazepine (Tegretol) 100 mg PO BID [facility] PRN Reason: Protocol Last Admin: 04/21/17 11:09 Dose: 100 mg Folic Acid (Folic Acid) 1 mg PO DAILY [facility] Last Admin: 04/21/17 11:09 Dose: 1 mg Heparin Sodium (Porcine) (Heparin) 5,000 units SC Q8 [facility] PRN Reason: Protocol Last Admin: 04/21/17 06:07 Dose: 5,000 units Meropenem/Sodium Chloride (Meropenem 1g/Ns 100ml Ivpb) 1 gm in 100 mls @ 100 mls/hr IVPB Q8 [facility] PRN Reason: Protocol Stop: 04/25/17 09:38 Last Admin: 04/21/17 06:06 Dose: 100 mls/hr Vancomycin HCl (Vancomycin 1gm) 1 gm in 250 mls @ 167 mls/hr IVPB Q12H [facility] PRN Reason: Protocol Stop: 04/25/17 09:46 Last Admin: 04/21/17 09:59 Dose: 167 mls/hr Multivitamins/Vitamin C 10 ml/ (Amino Acids) 1,010 mls @ 41.667 mls/hr IV .Q24H [facility] Stop: 04/24/17 17:59 Last Admin: 04/20/17 18:18 Dose: 41.667 mls/hr Fat Emulsion Intravenous (Intralipid 20%) 250 mls @ 20.833 mls/hr IV MWF@1800 [facility] Stop: 04/24/17 17:59 Micafungin Sodium 100 mg/ (Sodium Chloride) 100 mls @ 100 mls/hr IV DAILY [facility] PRN Reason: Protocol Stop: 05/04/17 22:31 Last Admin: 04/21/17 00:20 Dose: 100 mls/hr Potassium Chloride/Dextrose/Sod Cl (Potassium Chl 40 Meq In D5-1/2ns) 1,000 mls @ 50 mls/hr IV .Q20H [facility] Last Admin: 04/21/17 11:40 Dose: 50 mls/hr Ketorolac Tromethamine (Toradol) 30 mg IVP Q6 [facility] Last Admin: 04/21/17 11:11 Dose: Not Given Lidocaine (Lidoderm) 1 ea TD 2200 [facility] Last Admin: 04/20/17 22:33 Dose: Not Given Metoprolol Tartrate (Lopressor) 25 mg PO BID [facility] Last Admin: 04/21/17 11:10 Dose: 25 mg Mirtazapine (Remeron) 15 mg PO HS [facility] Last Admin: 04/20/17 23:13 Dose: Not Given Morphine Sulfate (Morphine) 4 mg IVP Q4H PRN PRN Reason: Pain, severe (8-10) Last Admin: 04/21/17 10:01 Dose: 4 mg Nicotine (Nicoderm Cq) 1 patch TD DAILY [facility] Last Admin: 04/21/17 09:59 Dose: 1 patch Ondansetron HCl (Zofran Inj) 4 mg IVP Q4H PRN PRN Reason: Nausea/Vomiting Last Admin: 04/16/17 20:15 Dose: 4 mg Oxycodone/Acetaminophen (Percocet 10/325 Mg Tab) 1 tab PO Q4H PRN PRN Reason: Pain, moderate (4-7) Last Admin: 04/18/17 15:49 Dose: 1 tab Pantoprazole Sodium (Protonix Inj) 40 mg IVP Q12 [facility] Last Admin: 04/21/17 09:59 Dose: 40 mg Polyethylene Glycol (Miralax) 17 gm PO DAILY [facility] Last Admin: 04/21/17 11:11 Dose: 17 gm Tamsulosin HCl (Flomax) 0.4 mg PO DAILY [facility] Last Admin: 04/21/17 11:10 Dose: 0.4 mg - Labs Labs: 04/21/17 06:45 04/21/17 06:45 PT 12.5 SECONDS (9.4-12.5) 04/09/17 15:35 INR 1.09 (0.93-1.08) H 04/09/17 15:35 APTT 32.7 Seconds (25.1-36.5) 04/09/17 15:35 Attending/Attestation - Attestation I have personally seen and examined this patient.: Yes I have fully participated in the care of the patient.: Yes I have reviewed all pertinent clinical information, including history, physical exam and plan: Yes Notes (Text): 04/21/17 13:11 I have seen and examined patient with center medical specialist. No acute events overnight, he appears chronically ill and lethargic, asking for his tube feeding to be started. He denies abdominal pain, fever/chills. There is still significant bilious output (nearly 500 cc over last shift) via NGT. HTN CVA Nausea, vomiting, weight loss - SMA syndrome s/p gastrojejunostomy s/p PEJ placement yesterday showing stenotic efferent jejunal limb, severe erosive esophagitis - Continue to monitor NGT output - Follow up nutritional recommendations - Continue with PPI therapy - May begin tube feeding via PEJ, monitor for residuals, bumper adjusted - Surgical team needs to address the ongoing obstructive pathology at the efferent jejunal limb, follow up recommendations - Will continue to monitor patient clinical course
[2017-04-21] MEDS: Sodium Chloride 0.9% 1,000 ML IV SCH (05:40)
[2017-04-21] MEDS: Meropenem 1g/NS 100mL IVPB 1 GM/100 ML PIGGYBACK IVPB SCH ×3 (06:06→21:43)
[2017-04-21 07:06] LABS: HEMOGLOBIN 8.7 g/dL (14.0-18.0); MEAN CELL VOLUME 90.9 fl (80.0-105.0); MEAN CORPUSCULAR HEMOGLOBIN 28.3 pg (25.0-35.0); MEAN CORPUSCULAR HGB CONC 31.2 g/dl (31.0-37.0); MEAN PLATELET VOLUME 9.5 fl (7.0-11.0); RBC 3.07 10^6/uL (3.5-6.1); RED CELL DISTRIBUTION WIDTH 17.1 % (11.5-14.5)
[2017-04-21 07:54] LABS: ALBUMIN 2.5 g/dL (3.0-4.8); ALT/SGPT 13 U/L (7-56); AST/SGOT 20 U/L (17-59); BLOOD UREA NITROGEN 18 mg/dL (7-21); CALCIUM 8.2 mg/dL (8.4-10.5); GFR AFRICAN-AMERICAN > 60; GFR NON-AFRICAN AMERICAN > 60
[2017-04-21] MEDS ORDERED: Potassium Ch 20mEq in D5-1/2NS 1,000 ML IV SCH (08:45)
--- NOTE | 2017-04-21 08:58 | CP.PCM.PN ---
Subjective - Date & Time of Evaluation Date of Evaluation: 04/21/17 Time of Evaluation: 08:53 - Subjective Subjective: Surgery: Dr Toscano Patient pain controlled. Denies n/v. NGT output 1800/24hrs. Patient unsure of bowel function. Patient s/p J-tube placement with GI POD1. Per GI ok to use J tube for initiating feeds today. Objective - Vital Signs/Intake and Output Vital Signs (last 24 hours): Temp Pulse Resp BP Pulse Ox 97.7 F 75 20 124/85 92 L 04/21/17 06:00 04/21/17 06:00 04/21/17 06:00 04/21/17 06:00 04/20/17 23:26 Intake and Output: 04/21/17 04/21/17 06:59 18:59 Intake Total 920 Output Total 650 800 Balance 270 -800 - Medications Medications: Current Medications Albuterol/Ipratropium (Duoneb 3 Mg/0.5 Mg (3 Ml) Ud) 3 ml IH [id number] [facility] Last Admin: 04/21/17 07:22 Dose: 3 ml Carbamazepine (Tegretol) 100 mg PO BID [facility] PRN Reason: Protocol Last Admin: 04/20/17 18:19 Dose: Not Given Folic Acid (Folic Acid) 1 mg PO DAILY [facility] Last Admin: 04/20/17 10:24 Dose: Not Given Heparin Sodium (Porcine) (Heparin) 5,000 units SC Q8 [facility] PRN Reason: Protocol Last Admin: 04/21/17 06:07 Dose: 5,000 units Meropenem/Sodium Chloride (Meropenem 1g/Ns 100ml Ivpb) 1 gm in 100 mls @ 100 mls/hr IVPB Q8 [facility] PRN Reason: Protocol Stop: 04/25/17 09:38 Last Admin: 04/21/17 06:06 Dose: 100 mls/hr Vancomycin HCl (Vancomycin 1gm) 1 gm in 250 mls @ 167 mls/hr IVPB Q12H [facility] PRN Reason: Protocol Stop: 04/25/17 09:46 Last Admin: 04/20/17 22:34 Dose: 167 mls/hr Multivitamins/Vitamin C 10 ml/ (Amino Acids) 1,010 mls @ 41.667 mls/hr IV .Q24H [facility] Stop: 04/24/17 17:59 Last Admin: 04/20/17 18:18 Dose: 41.667 mls/hr Fat Emulsion Intravenous (Intralipid 20%) 250 mls @ 20.833 mls/hr IV MWF@1800 [facility] Stop: 04/24/17 17:59 Micafungin Sodium 100 mg/ (Sodium Chloride) 100 mls @ 100 mls/hr IV DAILY [facility] PRN Reason: Protocol Stop: 05/04/17 22:31 Last Admin: 04/21/17 00:20 Dose: 100 mls/hr Potassium Chloride/Dextrose/Sod Cl (Potassium Chl 40 Meq In D5-1/2ns) 1,000 mls @ 50 mls/hr IV .Q20H [facility] Ketorolac Tromethamine (Toradol) 30 mg IVP Q6 [facility] Last Admin: 04/21/17 06:08 Dose: Not Given Lidocaine (Lidoderm) 1 ea TD 2200 [facility] Last Admin: 04/20/17 22:33 Dose: Not Given Metoprolol Tartrate (Lopressor) 25 mg PO BID [facility] Last Admin: 04/20/17 18:18 Dose: Not Given Mirtazapine (Remeron) 15 mg PO HS [facility] Last Admin: 04/20/17 23:13 Dose: Not Given Morphine Sulfate (Morphine) 4 mg IVP Q4H PRN PRN Reason: Pain, severe (8-10) Last Admin: 04/21/17 06:50 Dose: 4 mg Nicotine (Nicoderm Cq) 1 patch TD DAILY [facility] Last Admin: 04/20/17 13:07 Dose: 1 patch Ondansetron HCl (Zofran Inj) 4 mg IVP Q4H PRN PRN Reason: Nausea/Vomiting Last Admin: 04/16/17 20:15 Dose: 4 mg Oxycodone/Acetaminophen (Percocet 10/325 Mg Tab) 1 tab PO Q4H PRN PRN Reason: Pain, moderate (4-7) Last Admin: 04/18/17 15:49 Dose: 1 tab Pantoprazole Sodium (Protonix Inj) 40 mg IVP Q12 [facility] Last Admin: 04/20/17 21:31 Dose: 40 mg Polyethylene Glycol (Miralax) 17 gm PO DAILY [facility] Last Admin: 04/20/17 10:24 Dose: Not Given Tamsulosin HCl (Flomax) 0.4 mg PO DAILY [facility] Last Admin: 04/20/17 10:24 Dose: Not Given - Labs Labs: 04/21/17 06:45 04/21/17 06:45 PT 12.5 SECONDS (9.4-12.5) 04/09/17 15:35 INR 1.09 (0.93-1.08) H 04/09/17 15:35 APTT 32.7 Seconds (25.1-36.5) 04/09/17 15:35 - Constitutional Appears: Non-toxic, Cachectic - Head Exam Head Exam: ATRAUMATIC, NORMOCEPHALIC - Eye Exam Eye Exam: EOMI, Normal appearance - ENT Exam ENT Exam: Mucous Membranes Moist - Respiratory Exam Respiratory Exam: NORMAL BREATHING PATTERN. absent: Respiratory Distress - Cardiovascular Exam Cardiovascular Exam: REGULAR RHYTHM. absent: Tachycardia - GI/Abdominal Exam GI & Abdominal Exam: Soft, Tenderness (michele-incisional, appropriate. Incision CDI with staple closure). absent: Guarding, Rigid Additional comments: Jtube in LLQ, clean intact - Neurological Exam Neurological Exam: Alert, Awake - Psychiatric Exam Psychiatric exam: Normal Affect, Normal Mood - Skin Skin Exam: Normal Color, Warm Assessment and Plan - Assessment and Plan (Free Text) Assessment: 61 y/o male w/ SMA syndrome s/p open GJ POD10 with ileus cont obstruction s/p J tube placement POD1 Plan: -routine post op care -patient on TPN, should receive daily mag/phos -initiate tube feeds through J tube, f/u nutrition recs regarding formula -once tube feeds initiated can wean TPN -NGT output remains high, need GI loss replacement with IVFs -physical therapy, aggressive -IS use -further recs per Dr. Everton Art PGY3
[2017-04-21 09:16] LABS: MAGNESIUM 2.5 mg/dL (1.7-2.2)
[2017-04-21] MEDS: Vancomycin 1gm in NS 250ml 1 GM/250 ML BAG IVPB SCH (09:59)
[2017-04-21] MEDS: POLYETHYLENE GLYCOL 3350 17 GM/Dose PACKET PO SCH (11:11)
[2017-04-21] MEDS: Potassium Chl 40 mEq in D5-1/2 1,000 ML IV SCH (11:40)
[2017-04-21] MEDS ORDERED: Fat Emulsion 20% IV 250 ML IV SCH (18:00)
[2017-04-21] MEDS: DEXT IV SCH (19:01)
[2017-04-21] MEDS: AMINO IV SCH (19:01)
[2017-04-21] MEDS: MULTIVITAMIN IV SCH (19:01)
--- NOTE | 2017-04-21 21:09 | PN ---
DATE: 04/21/2017 SUBJECTIVE: Patient is in bed, in no acute distress, nontoxic. PHYSICAL EXAMINATION: VITAL SIGNS: Temperature 98, blood pressure is 120/80, respiratory rate of 18. HEENT: Unremarkable. NECK: Supple. LUNGS: Have decreased breath sounds. HEART: Normal S1, S2. ABDOMEN: Soft, nontender. LABORATORY DATA: Reveals a white count of 8000, hemoglobin of 8.7, platelets of 401. Chemistries reveal a BUN of 18, creatinine of 0.8. Procalcitonin is 0.21. Urinalysis is noted. Serology, his HIV is negative. Microbiology reveals Alyssa glabrata in all the blood cultures and repeat blood cultures show one bottle is still positive and repeat ones from yesterday are pending. A third set of blood culture is pending. MEDICATIONS: Patient is on meropenem, micafungin, and vancomycin. ASSESSMENT AND PLAN: This is a 61-year-old male with a history of hypertension, cerebrovascular accident, left-sided weakness, anxiety, arthritis, admitted with a small bowel obstruction, abdominal surgery, open gastrojejunostomy procedure, post procedure day #10, now with sepsis with Alyssa glabrata fungemia in all the blood cultures. Repeat blood culture, one bottle is still positive. Third set of blood culture is pending. Patient is currently on Mycamine awaiting for echocardiogram results to rule out Candidal endocarditis and should have an ophthalmology evaluation and will discontinue the vancomycin IV. We will follow closely with you. Fidencio Mckenna MD
[2017-04-21] MEDS: Lidocaine 5% Patch TD SCH ×2 (21:40→21:57)
[2017-04-21] MEDS: Metoclopramide 5 mg/5 ml Oral Sol PO SCH (22:34)
--- NOTE | 2017-04-21 23:38 | PN ---
DATE: 04/21/2017 PULMONARY PROGRESS NOTE REFERRING PHYSICIAN: Radha Lantigua MD. SUBJECTIVE: He is lying in the bed, status post jejunostomy tube placement. He has a nasogastric tube, draining bilious fluid. Thirsty, wants to drink. On and off nausea. No abdominal pain. No leg pain or leg swelling. He has a low back pain. OBJECTIVE: GENERAL: In no acute distress. VITAL SIGNS: Temperature is 98, heart rate is 85, respiratory rate is 18, blood pressure 125/84, pulse ox 96% on nasal cannula. HEENT: Moist mucous membrane. No ulcer or thrush noted. NECK: Supple. No JVD. LUNGS: Have a few scattered rhonchi. HEART: S1 and S2. ABDOMEN: Positive bowel sound. Jejunostomy tube area looks okay. Surgical site looks okay. EXTREMITIES: There is no edema. NEUROLOGIC: Awake, alert. Follows simple command. MEDICATIONS: He is on DuoNeb q. 6 hours, Flomax 0.4 mg daily, folic acid 1 mg daily, heparin 5000 units subcu q. 8 hours, Intralipid on Monday and Monday, Lidoderm patch at affected area, metoprolol tartrate 25 mg twice a day, meropenem 1 g IV q. 8 hours, MiraLax 17 g daily, morphine 4 mg q. 4 hours p.r.n., vitamin C amino acid is being given, Nicoderm patch daily, Percocet 10/325 one tablet q. 4 hours p.r.n., potassium supplement being given, Protonix 40 mg twice a day, Remeron 15 mg at bedtime, Tegretol 100 mg twice a day, Toradol 30 mg q. 6 hours, Zofran p.r.n. basis. LABORATORY DATA: Shows hemoglobin 8.7, hematocrit 27.9, WBC 8.0, platelet count is 401. Sodium 139, potassium 3.0, chloride 97, bicarbonate 33, BUN 18, creatinine 0.5, glucose 96, calcium is 8.2, AST 20, ALT 13, alkaline phosphatase is 106, albumin 2.5, procalcitonin 0.21. IMPRESSION AND PLAN: Multi-lobe aspiration pneumonia, superior mesenteric artery syndrome - status post gastrojejunostomy, which did not work and getting gastrojejunostomy, still having stomach pain, low back pain. Case discussed with Dr. Lantigua in detail. Continue bronchodilator, keep head at 45 degrees, aspiration precaution. Continue feeding through jejunostomy tube. So, hopefully, gaining some weight may help for superior mesenteric artery syndrome. We will add Reglan 10 mg intravenous q. 6 hours for the next 24-48 hours to see if that can work. Try to avoid sedative. Thank you and we will follow with you. Velvet Castillo MD
[2017-04-22] MEDS: Morphine 4 mg/ml ISec IVP PRN ×4 (01:41→15:05)
[2017-04-22] MEDS: Albuterol-Ipratrop 3 mg / 0.5 (3 ml) UD IH SCH ×4 (02:13→21:31)
--- NOTE | 2017-04-22 03:21 | PN ---
DATE: SUBJECTIVE: Patient is a 61-year-old male. Patient seen and examined at the bedside. Complaining about back pain. Has J-tube, started feeding as per nutritional recommendation. J-tube is neat and clean, healthy. NG tube still draining bilious output. No nausea or vomiting. No swelling of the legs. No headache. No dizziness. PHYSICAL EXAMINATION: VITAL SIGNS: Temperature is 97.5, pulse 68, respiratory rate 20, blood pressure 104/65, pulse oximetry 92%. HEENT: Head normocephalic, atraumatic. Eyes, PERRLA. Extraocular muscles intact. Conjunctivae clear. Nose patent. Mucous membranes are moist. NECK: Supple. No carotid bruit. No JVD or thyromegaly. CHEST: Bilateral symmetrical. HEART: S1, S2 positive. LUNGS: Clear to auscultation. ABDOMEN: Soft. Bowel sounds positive. No organomegaly. EXTREMITIES: No edema. No cyanosis. NEUROLOGIC: Patient is awake, alert. Moving all four extremities. No focal deficits. LABORATORY DATA: White blood cell 10.0, hemoglobin 9.0, hematocrit 28.5, platelets 385. Sodium 140, potassium 3.3, BUN 19, creatinine 0.5, glucose 96. MEDICATIONS: DuoNeb, Tegretol, folic acid, heparin, meropenem, vancomycin, amino acids, NS, micafungin, lidocaine, metoprolol, Remeron, morphine, Nicoderm, Zofran, Percocet, Protonix, Miralax, Flomax. ASSESSMENT AND PLAN: Mr. rBandyn Wang is a 61-year-old male with anemia, hypokalemia, history of hypertension, hypercholesterolemia, cerebrovascular accident with residual left-sided weakness, chronic back pain, history of weight loss secondary to superior mesenteric artery syndrome status post gastrojejunostomy postoperative day 11 with persistent poor p.o. intake and bilious vomiting. Now patient has nasogastric tube and jejunostomy tube is placed. Aspiration pneumonia status post jejunostomy tube placement postoperative day 1. Patient is getting feedings as per sensitizer's recommendation. Will advance as tolerated. Continue Protonix. Nasogastric tube to low intermittent suction due to ongoing obstruction. J-tube site clean, looks healthy. History of rheumatoid arthritis, history of heavy smoking. Appreciate Dr. Castillo's and Dr. Mckenna's input. Physical therapy, out of bed. History of left-sided weakness and anxiety. Repeat blood cultures are growing yeast, and patient is on Mycamine. Patient is on meropenem also. We will repeat blood cultures and will need an echocardiogram. Gastrointestinal and deep venous thrombosis prophylaxis. Overall prognosis is poor. We will follow. Radha Lantigua MD
[2017-04-22] MEDS: Meropenem 1g/NS 100mL IVPB 1 GM/100 ML PIGGYBACK IVPB SCH (05:24)
[2017-04-22] MEDS: Metoclopramide 5 mg/5 ml Oral Sol PO SCH ×4 (05:24→21:21)
[2017-04-22 06:01] LABS: EOS # 0.5 (0.0-0.7); GRAN # 7.31 (1.4-6.5); GRAN % 68.6 % (50.0-68.0); HEMOGLOBIN 8.6 g/dL (14.0-18.0); LYMPH # 1.9 (1.2-3.4); LYMPH % 17.8 % (22.0-35.0); MEAN CELL VOLUME 90.8 fl (80.0-105.0); MEAN CORPUSCULAR HEMOGLOBIN 29.3 pg (25.0-35.0); MEAN CORPUSCULAR HGB CONC 32.2 g/dl (31.0-37.0); MEAN PLATELET VOLUME 9.3 fl (7.0-11.0); MONO # 0.9 (0.1-0.6); MONO % 8.6 % (1.0-6.0); RBC 2.94 10^6/uL (3.5-6.1); WHITE BLOOD COUNT 10.6 10^3/ul (4.5-11.0)
[2017-04-22 06:22] LABS: ALBUMIN 2.3 g/dL (3.0-4.8); ALT/SGPT 23 U/L (7-56); AST/SGOT 21 U/L (17-59); BLOOD UREA NITROGEN 17 mg/dL (7-21); CALCIUM 7.9 mg/dL (8.4-10.5); GFR AFRICAN-AMERICAN > 60; GFR NON-AFRICAN AMERICAN > 60; MAGNESIUM 2.2 mg/dL (1.7-2.2)
--- NOTE | 2017-04-22 09:21 | CARD ---
APPROVED REPORT EXAM: Two-dimensional and M-mode echocardiogram with Doppler and color Doppler. Other Information Quality : FairRhythm : INDICATION Infection:Rule out subacute bacterial endocarditis 2D DIMENSIONS Left Atrium (2D)4.0 (1.6-4.0cm)IVSd1.1 (0.7-1.1cm) LVDd4.3 (3.9-5.9cm)PWd1.1 (0.7-1.1cm) LVDs3.1 (2.5-4.0cm)FS (%) 28.0 % LVEF (%)54.0 (>50%) M-Mode DIMENSIONS Aortic Root3.20 (2.2-3.7cm)Aortic Cusp Exc.1.60 (1.5-2.0cm) Aortic Valve AoV Peak Aqsmjiew452.0cm/s Mitral Valve MV E Xpvjifvc62.1cm/sMV A Pegobzvh16.5cm/sE/A ratio1.0 TDI Lateral E' Peak V8.58cm/sMedial E' Peak V5.56cm/sE/Lateral E'8.3 E/Medial E'12.8 Pulmonary Valve PV Peak Bfjkqpil40.8cm/sPV Peak Grad.3mmHg Tricuspid Valve TR Peak [id number]/sRAP [id number] Peak Gr.21mmHg [id number] LEFT VENTRICLE The left ventricle is normal size. There is normal left ventricular wall thickness. The left ventricular function is normal. The left ventricular ejection fraction is within the normal range. There is normal LV segmental wall motion. RIGHT VENTRICLE The right ventricle is normal size. ATRIA The left atrium size is normal. The right atrium size is normal. AORTIC VALVE The aortic valve is normal in structure. MITRAL VALVE The mitral valve is normal in structure. Mitral regurgitation is trace. TRICUSPID VALVE The tricuspid valve is not well visualized. There is trace tricuspid regurgitation. PULMONIC VALVE The pulmonic valve is not well visualized. GREAT VESSELS The aortic root is normal in size. PERICARDIAL EFFUSION There is no pericardial effusion. <Conclusion> The left ventricle is normal size. There is normal left ventricular wall thickness. The left ventricular function is normal.
[2017-04-22] MEDS: POLYETHYLENE GLYCOL 3350 17 GM/Dose PACKET PO SCH (10:21)
[2017-04-22] MEDS: Micafungin 100 MG in Sodium Chloride 0.9% 100 ML IV SCH (10:21)
--- NOTE | 2017-04-22 11:06 | CP.PCM.PN ---
Subjective - Date & Time of Evaluation Date of Evaluation: 04/22/17 Time of Evaluation: 08:45 - Subjective Subjective: General Surgery Seen and examined. Patient pain controlled but complains of leg spasms. Denies n /v. NGT with 1500cc bilious output. Passing flatus. Objective - Vital Signs/Intake and Output Vital Signs (last 24 hours): Temp Pulse Resp BP Pulse Ox 98.2 F 100 H 19 108/75 99 04/22/17 06:00 04/22/17 10:22 04/22/17 06:00 04/22/17 10:22 04/22/17 06:00 Intake and Output: 04/22/17 04/22/17 06:59 18:59 Intake Total 2562 Output Total 525 Balance 2037 - Medications Medications: Current Medications Albuterol/Ipratropium (Duoneb 3 Mg/0.5 Mg (3 Ml) Ud) 3 ml IH [id number] [facility] Last Admin: 04/22/17 07:35 Dose: 3 ml Carbamazepine (Tegretol) 100 mg PO BID [facility] PRN Reason: Protocol Last Admin: 04/22/17 10:20 Dose: 100 mg Folic Acid (Folic Acid) 1 mg PO DAILY [facility] Last Admin: 04/22/17 10:21 Dose: 1 mg Heparin Sodium (Porcine) (Heparin) 5,000 units SC Q8 [facility] PRN Reason: Protocol Last Admin: 04/22/17 05:24 Dose: 5,000 units Multivitamins/Vitamin C 10 ml/ (Amino Acids) 1,010 mls @ 41.667 mls/hr IV .Q24H [facility] Stop: 04/24/17 17:59 Last Admin: 04/21/17 19:01 Dose: 41.667 mls/hr Fat Emulsion Intravenous (Intralipid 20%) 250 mls @ 20.833 mls/hr IV MWF@1800 [facility] Stop: 04/24/17 17:59 Last Admin: 04/21/17 18:40 Dose: 20.833 mls/hr Micafungin Sodium 100 mg/ (Sodium Chloride) 100 mls @ 100 mls/hr IV DAILY [facility] PRN Reason: Protocol Stop: 05/04/17 22:31 Last Admin: 04/22/17 10:21 Dose: 100 mls/hr Potassium Chloride/Dextrose/Sod Cl (Potassium Chl 40 Meq In D5-1/2ns) 1,000 mls @ 50 mls/hr IV .Q20H [facility] Last Admin: 04/21/17 11:40 Dose: 50 mls/hr Ketorolac Tromethamine (Toradol) 30 mg IVP Q6 [facility] Last Admin: 04/22/17 05:23 Dose: 30 mg Lidocaine (Lidoderm) 1 ea TD 2200 [facility] Last Admin: 04/21/17 21:57 Dose: Not Given Metoclopramide HCl (Reglan) 5 mg PO 0600,1130,1630,2200 [facility] Last Admin: 04/22/17 05:24 Dose: 5 mg Metoprolol Tartrate (Lopressor) 25 mg PO BID [facility] Last Admin: 04/22/17 10:22 Dose: 25 mg Mirtazapine (Remeron) 15 mg PO HS [facility] Last Admin: 04/21/17 21:42 Dose: 15 mg Morphine Sulfate (Morphine) 4 mg IVP Q4H PRN PRN Reason: Pain, severe (8-10) Last Admin: 04/22/17 10:19 Dose: 4 mg Nicotine (Nicoderm Cq) 1 patch TD DAILY [facility] Last Admin: 04/22/17 10:21 Dose: 1 patch Ondansetron HCl (Zofran Inj) 4 mg IVP Q4H PRN PRN Reason: Nausea/Vomiting Last Admin: 04/16/17 20:15 Dose: 4 mg Oxycodone/Acetaminophen (Percocet 10/325 Mg Tab) 1 tab PO Q4H PRN PRN Reason: Pain, moderate (4-7) Last Admin: 04/18/17 15:49 Dose: 1 tab Pantoprazole Sodium (Protonix Inj) 40 mg IVP Q12 [facility] Last Admin: 04/22/17 10:20 Dose: 40 mg Polyethylene Glycol (Miralax) 17 gm PO DAILY [facility] Last Admin: 04/22/17 10:21 Dose: 17 gm Tamsulosin HCl (Flomax) 0.4 mg PO DAILY [facility] Last Admin: 04/22/17 10:21 Dose: 0.4 mg - Labs Labs: 04/22/17 05:40 04/22/17 05:40 PT 12.5 SECONDS (9.4-12.5) 04/09/17 15:35 INR 1.09 (0.93-1.08) H 04/09/17 15:35 APTT 32.7 Seconds (25.1-36.5) 04/09/17 15:35 - Constitutional Appears: Non-toxic, No Acute Distress - Head Exam Head Exam: ATRAUMATIC, NORMOCEPHALIC - Eye Exam Eye Exam: EOMI. absent: Scleral icterus - ENT Exam Additional comments: NGT in place - Respiratory Exam Respiratory Exam: NORMAL BREATHING PATTERN. absent: Respiratory Distress - GI/Abdominal Exam GI & Abdominal Exam: Soft. absent: Distended, Firm, Guarding, Rigid, Tenderness Additional comments: incision C/D/I J tube In LLQ. functioning - Neurological Exam Neurological Exam: Alert, Awake, Oriented x3 - Skin Skin Exam: Warm Assessment and Plan - Assessment and Plan (Free Text) Assessment: 61M w/ SMA syndrome s/p open GJ POD11 with ileus cont obstruction s/p J tube placement POD2 Plan: -Discussed with GI team, Efferent limb obstruction, GI considering Endoscopic procedure with surgery team back up. -patient on TPN, should receive daily mag/phos -f/u nutrition recs regarding formula -Wean TPN, last bag today -NGT output remains high, need GI loss replacement with IVFs -physical therapy, aggressive -IS use D/W Dr. Everton Jesus PGY4
--- NOTE | 2017-04-22 11:46 | CP.PCM.PN ---
<Noreen Winkler - Last Filed: 04/22/17 11:53> Subjective - Date & Time of Evaluation Date of Evaluation: 04/22/17 Time of Evaluation: 08:15 - Subjective Subjective: GI Fellow PGY4 Progress Note Patient seen and examined this morning. No acute overnight events or new complaints reported. Tolerated J-tube placement well and tolerating feeds today per nutrition recommendations. J-tube site is clean, dry and intact. NGT continues to drain bilious output. Reports low back pain. 12point ROS as per above otherwise negative Objective - Vital Signs/Intake and Output Vital Signs (last 24 hours): Temp Pulse Resp BP Pulse Ox 98.2 F 100 H 19 108/75 99 04/22/17 06:00 04/22/17 10:22 04/22/17 06:00 04/22/17 10:22 04/22/17 06:00 Intake and Output: 04/22/17 04/22/17 06:59 18:59 Intake Total 2562 Output Total 525 Balance 2037 - Medications Medications: Current Medications Albuterol/Ipratropium (Duoneb 3 Mg/0.5 Mg (3 Ml) Ud) 3 ml IH [id number] [facility] Last Admin: 04/22/17 07:35 Dose: 3 ml Carbamazepine (Tegretol) 100 mg PO BID [facility] PRN Reason: Protocol Last Admin: 04/22/17 10:20 Dose: 100 mg Folic Acid (Folic Acid) 1 mg PO DAILY [facility] Last Admin: 04/22/17 10:21 Dose: 1 mg Heparin Sodium (Porcine) (Heparin) 5,000 units SC Q8 [facility] PRN Reason: Protocol Last Admin: 04/22/17 05:24 Dose: 5,000 units Multivitamins/Vitamin C 10 ml/ (Amino Acids) 1,010 mls @ 41.667 mls/hr IV .Q24H [facility] Stop: 04/24/17 17:59 Last Admin: 04/21/17 19:01 Dose: 41.667 mls/hr Fat Emulsion Intravenous (Intralipid 20%) 250 mls @ 20.833 mls/hr IV MWF@1800 [facility] Stop: 04/24/17 17:59 Last Admin: 04/21/17 18:40 Dose: 20.833 mls/hr Micafungin Sodium 100 mg/ (Sodium Chloride) 100 mls @ 100 mls/hr IV DAILY [facility] PRN Reason: Protocol Stop: 05/04/17 22:31 Last Admin: 04/22/17 10:21 Dose: 100 mls/hr Potassium Chloride/Dextrose/Sod Cl (Potassium Chl 40 Meq In D5-1/2ns) 1,000 mls @ 50 mls/hr IV .Q20H [facility] Last Admin: 04/21/17 11:40 Dose: 50 mls/hr Ketorolac Tromethamine (Toradol) 30 mg IVP Q6 [facility] Last Admin: 04/22/17 05:23 Dose: 30 mg Lidocaine (Lidoderm) 1 ea TD 2200 [facility] Last Admin: 04/21/17 21:57 Dose: Not Given Metoclopramide HCl (Reglan) 5 mg PO 0600,1130,1630,2200 [facility] Last Admin: 04/22/17 05:24 Dose: 5 mg Metoprolol Tartrate (Lopressor) 25 mg PO BID [facility] Last Admin: 04/22/17 10:22 Dose: 25 mg Mirtazapine (Remeron) 15 mg PO HS [facility] Last Admin: 04/21/17 21:42 Dose: 15 mg Morphine Sulfate (Morphine) 4 mg IVP Q4H PRN PRN Reason: Pain, severe (8-10) Last Admin: 04/22/17 10:19 Dose: 4 mg Nicotine (Nicoderm Cq) 1 patch TD DAILY [facility] Last Admin: 04/22/17 10:21 Dose: 1 patch Ondansetron HCl (Zofran Inj) 4 mg IVP Q4H PRN PRN Reason: Nausea/Vomiting Last Admin: 04/16/17 20:15 Dose: 4 mg Oxycodone/Acetaminophen (Percocet 10/325 Mg Tab) 1 tab PO Q4H PRN PRN Reason: Pain, moderate (4-7) Last Admin: 04/18/17 15:49 Dose: 1 tab Pantoprazole Sodium (Protonix Inj) 40 mg IVP Q12 [facility] Last Admin: 04/22/17 10:20 Dose: 40 mg Polyethylene Glycol (Miralax) 17 gm PO DAILY [facility] Last Admin: 04/22/17 10:21 Dose: 17 gm Tamsulosin HCl (Flomax) 0.4 mg PO DAILY [facility] Last Admin: 04/22/17 10:21 Dose: 0.4 mg - Labs Labs: 04/22/17 05:40 04/22/17 05:40 PT 12.5 SECONDS (9.4-12.5) 04/09/17 15:35 INR 1.09 (0.93-1.08) H 04/09/17 15:35 APTT 32.7 Seconds (25.1-36.5) 04/09/17 15:35 - Constitutional Appears: Non-toxic, No Acute Distress, Cachectic - ENT Exam ENT Exam: Mucous Membranes Moist, Normal Exam - Neck Exam Additional comments: NGT - Respiratory Exam Respiratory Exam: Decreased Breath Sounds, NORMAL BREATHING PATTERN - Cardiovascular Exam Cardiovascular Exam: REGULAR RHYTHM - GI/Abdominal Exam GI & Abdominal Exam: Soft, Normal Bowel Sounds. absent: Distended, Tenderness Additional comments: PEJ - Extremities Exam Extremities Exam: Normal Inspection - Neurological Exam Neurological Exam: Alert, Awake, Oriented x3 - Psychiatric Exam Psychiatric exam: Normal Affect, Normal Mood - Skin Skin Exam: Dry, Intact, Normal Color, Warm Assessment and Plan - Assessment and Plan (Free Text) Assessment: 61yo male with history of hypertension, hyperlipidemia, CVA w/ residual left- sided weakness, chronic back pain who was admitted with abdominal pain associated with nausea, vomiting and weight loss secondary to SMA syndrome s/p gastrojenuostomy (POD#12) with persistent poor PO intake and bilious vomiting. 1. SMA syndrome 2. Malnutrition 3. Aspiration pneumonia 4. Anemia Plan: -Continue supportive with anti-emetics -s/p PEJ placement, tolerating tube feeds, site with no pain, erythema, or infection -Continue protonix 40mg PEJ BID -NGT to LIS due to ongoing obstruction -Recommend weaning TPN once tube feeds initiated and tolerated without issue -Recommend surgical follow up regarding high NGT output -Start CLD for pleasure eating -Discussed surgical and endoscopic options for pt with continued obstruction and he would like to wait to see if it resolves over time -Will continue to follow closely <Osmin Ozuna - Last Filed: 04/22/17 14:44> Objective - Vital Signs/Intake and Output Vital Signs (last 24 hours): Temp Pulse Resp BP Pulse Ox 98.2 F 100 H 19 108/75 99 04/22/17 06:00 04/22/17 10:22 04/22/17 06:00 02/17/18 10:22 04/22/17 06:00 Intake and Output: 04/22/17 04/22/17 06:59 18:59 Intake Total 2562 Output Total 525 Balance 2037 - Medications Medications: Current Medications Albuterol/Ipratropium (Duoneb 3 Mg/0.5 Mg (3 Ml) Ud) 3 ml IH [id number] [facility] Last Admin: 04/22/17 07:35 Dose: 3 ml Carbamazepine (Tegretol) 100 mg PO BID [facility] PRN Reason: Protocol Last Admin: 04/22/17 10:20 Dose: 100 mg Folic Acid (Folic Acid) 1 mg PO DAILY [facility] Last Admin: 04/22/17 10:21 Dose: 1 mg Heparin Sodium (Porcine) (Heparin) 5,000 units SC Q8 [facility] PRN Reason: Protocol Last Admin: 04/22/17 05:24 Dose: 5,000 units Multivitamins/Vitamin C 10 ml/ (Amino Acids) 1,010 mls @ 41.667 mls/hr IV .Q24H [facility] Stop: 04/24/17 17:59 Last Admin: 04/21/17 19:01 Dose: 41.667 mls/hr Fat Emulsion Intravenous (Intralipid 20%) 250 mls @ 20.833 mls/hr IV MWF@1800 [facility] Stop: 04/24/17 17:59 Last Admin: 04/21/17 18:40 Dose: 20.833 mls/hr Micafungin Sodium 100 mg/ (Sodium Chloride) 100 mls @ 100 mls/hr IV DAILY [facility] PRN Reason: Protocol Stop: 05/04/17 22:31 Last Admin: 04/22/17 10:21 Dose: 100 mls/hr Potassium Chloride/Dextrose/Sod Cl (Potassium Chl 40 Meq In D5-1/2ns) 1,000 mls @ 50 mls/hr IV .Q20H [facility] Last Admin: 04/21/17 11:40 Dose: 50 mls/hr Ketorolac Tromethamine (Toradol) 30 mg IVP Q6 [facility] Last Admin: 04/22/17 13:05 Dose: 30 mg Lidocaine (Lidoderm) 1 ea TD 2200 [facility] Last Admin: 04/21/17 21:57 Dose: Not Given Metoclopramide HCl (Reglan) 5 mg PO 0600,1130,1630,2200 [facility] Last Admin: 04/22/17 12:03 Dose: 5 mg Metoprolol Tartrate (Lopressor) 25 mg PO BID [facility] Last Admin: 04/22/17 10:22 Dose: 25 mg Mirtazapine (Remeron) 15 mg PO HS [facility] Last Admin: 04/21/17 21:42 Dose: 15 mg Morphine Sulfate (Morphine) 4 mg IVP Q4H PRN PRN Reason: Pain, severe (8-10) Last Admin: 04/22/17 10:19 Dose: 4 mg Nicotine (Nicoderm Cq) 1 patch TD DAILY [facility] Last Admin: 04/22/17 10:21 Dose: 1 patch Ondansetron HCl (Zofran Inj) 4 mg IVP Q4H PRN PRN Reason: Nausea/Vomiting Last Admin: 04/16/17 20:15 Dose: 4 mg Pantoprazole Sodium (Protonix Inj) 40 mg IVP Q12 [facility] Last Admin: 04/22/17 10:20 Dose: 40 mg Polyethylene Glycol (Miralax) 17 gm PO DAILY [facility] Last Admin: 04/22/17 10:21 Dose: 17 gm Tamsulosin HCl (Flomax) 0.4 mg PO DAILY [facility] Last Admin: 04/22/17 10:21 Dose: 0.4 mg - Labs Labs: 04/22/17 05:40 04/22/17 05:40 PT 12.5 SECONDS (9.4-12.5) 04/09/17 15:35 INR 1.09 (0.93-1.08) H 04/09/17 15:35 APTT 32.7 Seconds (25.1-36.5) 04/09/17 15:35 Attending/Attestation - Attestation I have personally seen and examined this patient.: Yes I have fully participated in the care of the patient.: Yes I have reviewed all pertinent clinical information, including history, physical exam and plan: Yes Notes (Text): 04/22/17 14:36 61 year old male with h/o CVA admitted with N/V, abdo pain, weight loss, found to have SMA syndrome now s/p gastrojenuostomy, with persistent poor PO intake and bilious vomiting found to have anastomotic efferent jejunal limb obstruction now s/p distal placement of feeding jejunostomy tube. 1. SMA syndrome 2. Malnutrition 3. Gastric outlet obstruction Plan: -s/p PEJ, tube tolerated at goal, PEJ adjusted slightly today, appears in good position -continue to have high output bilious NG drainage due to ongoing gastric outlet obstruction from SMA syndrome and subsequently obstructed gastrojejunal anastamosis -would wean TPN -would allow clear liquids / sherbert in small amounts as pleasure feedings with NG suction afterwards -continue NG to LIS -aspiration precautions and HOB at 30 degrees -jejunal feeding tube will provide nutrition which will aid in his recovery -recommend protonix 40 mg BID for severe erosive esophagitis and gastrojejunal ulceration -there are a handful of options at this point which I discussed with the patient and surgical team -one is conservative management with continuous NGT with the hope that gastrojejunal ulceration/edema will heal/improve with medical therapy such that he can eventually resume eating and NG can be discontinued eventually -alternative options would be revised surgery, drainage PEG (placing a second PEG in the stomach for the purposes of biliary drainage so the NG can be discontinued and he can have pleasure feeds), or last option would be EUS guided gastroenterostomy using AXIOS stent
--- NOTE | 2017-04-22 19:13 | PN ---
DATE: 04/22/2017 PULMONARY PROGRESS NOTE REFERRING PHYSICIAN: Dr. Lantigua. SUBJECTIVE: He is lying in the bed, sleepy, arousable. Family member is at bedside. Still has nasogastric tube, did have some breakfast this morning. Denying any nausea or vomiting. Did have a bowel movement, passed gas. Abdominal pain is better. OBJECTIVE: GENERAL: In no acute distress. VITAL SIGNS: Temperature is 99, heart rate 100, respiratory rate is 20, blood pressure is 108/75, pulse ox 99% on nasal cannulation. HEENT: Moist mucous membrane. No ulcer or thrush noted. NECK: Supple. No JVD. LUNGS: Defused scattered rhonchi. HEART: S1 and S2. ABDOMEN: Positive bowel sound, mild tenderness, jejunostomy tube looks okay. EXTREMITIES: There is no edema. NEUROLOGIC: Sleepy, arousable. Follows simple command. MEDICATIONS: He is on DuoNeb q. 6 hours, Flomax 0.4 mg daily, folic acid 1 mg daily, heparin 5000 units q. 8 hours, Intralipid 3 times a week, Lidoderm patch to affected area, metoprolol tartrate 25 mg twice a day, micafungin 100 mg daily, MiraLax 17 g daily, morphine 4 mg q. 4 hour p.r.n., multi vitamins daily, Nicoderm patch daily, potassium supplement, Protonix 40 mg daily, Reglan 5 mg q.i.d., Remeron 15 mg bedtime, Tegretol 100 mg twice a day, Toradol q. 6 hour, Zofran p.r.n. basis. LABORATORY DATA: Shows hemoglobin 8.6, hematocrit 26.7, WBC 10.6, platelet is 416. Sodium 135, potassium of 3.2, chloride 99, bicarbonate 29, BUN 17, creatinine 0.4, glucose 125, calcium 7.9, phosphorus 1.9, AST 21, ALT 23, alkaline phosphatase 99, albumin is 2.3, procalcitonin 0.21. Microbiology: Repeat blood culture, there is no growth. IMPRESSION AND PLAN: Multi-lobe aspiration pneumonia, superior mesenteric artery syndrome, status post gastrojejunostomy and also J-tube placement. Still has a nasogastric tube with intermittent suction, tolerating some clear liquid diet, did have a bowel movement, passing gas. Pulmonary point of view, doing okay. Keep head at 45 degrees, continue Reglan for now, gastric prophylaxis, deep venous thrombosis prophylaxis, out of bed to chair, start therapy. Spoke to family at bedside. All the questions answered. Thank you and we will follow with you. Velvet Castillo MD
[2017-04-22] MEDS ORDERED: oxyCODONE 5 mg Immediate Release Tab PO PRN (20:22)
[2017-04-22] MEDS: MULTIVITAMIN IV SCH (21:01)
[2017-04-22] MEDS: AMINO IV SCH (21:01)
[2017-04-22] MEDS: DEXT IV SCH (21:01)
[2017-04-22] MEDS: Morphine 2 mg/ml ISec IVP PRN (21:12)
[2017-04-22] MEDS: Lidocaine 5% Patch TD SCH (21:40)
[2017-04-22] MEDS: Acetaminophen 650mg/20.3ml solution UD PO SCH (21:41)
[2017-04-23] MEDS: Potassium Chl 40 mEq in D5-1/2 1,000 ML IV SCH ×3 (00:45→22:53)
[2017-04-23] MEDS: Morphine 2 mg/ml ISec IVP PRN ×7 (01:13→21:28)
[2017-04-23] MEDS: Acetaminophen 650mg/20.3ml solution UD PO SCH ×4 (02:30→22:54)
[2017-04-23] MEDS: Albuterol-Ipratrop 3 mg / 0.5 (3 ml) UD IH SCH ×4 (03:00→20:00)
[2017-04-23] MEDS: Metoclopramide 5 mg/5 ml Oral Sol PO SCH ×4 (06:10→22:54)
[2017-04-23 07:09] LABS: BASO # 0.01 K/mm3 (0.0-2.0); BASO % 0.1 % (0.0-3.0); EOS # 0.5 (0.0-0.7); EOS % 5.4 % (1.5-5.0); GRAN # 6.7 (1.4-6.5); GRAN % 68.6 % (50.0-68.0); LYMPH # 1.6 (1.2-3.4); LYMPH % 16.4 % (22.0-35.0); MEAN CELL VOLUME 92.1 fl (80.0-105.0); MEAN CORPUSCULAR HEMOGLOBIN 28.5 pg (25.0-35.0); MEAN CORPUSCULAR HGB CONC 30.9 g/dl (31.0-37.0); MEAN PLATELET VOLUME 9.7 fl (7.0-11.0); MONO # 0.9 (0.1-0.6); MONO % 9.5 % (1.0-6.0); RBC 3.16 10^6/uL (3.5-6.1); WHITE BLOOD COUNT 9.8 10^3/ul (4.5-11.0)
[2017-04-23 07:38] LABS: ALBUMIN 2.6 g/dL (3.0-4.8); ALT/SGPT 25 U/L (7-56); AST/SGOT 32 U/L (17-59); BLOOD UREA NITROGEN 18 mg/dL (7-21); CALCIUM 8.4 mg/dL (8.4-10.5); GFR AFRICAN-AMERICAN > 60; GFR NON-AFRICAN AMERICAN > 60; MAGNESIUM 2.3 mg/dL (1.7-2.2)
--- NOTE | 2017-04-23 09:39 | CP.PCM.PN ---
Subjective - Date & Time of Evaluation Date of Evaluation: 04/23/17 Time of Evaluation: 09:37 - Subjective Subjective: Surgery: Dr. Toscano Pt seen and examined. No acute events overnight. Continues to have high NGT output. Otherwise no complaints. Objective - Vital Signs/Intake and Output Vital Signs (last 24 hours): Temp Pulse Resp BP Pulse Ox 97.9 F 104 H 18 104/78 98 04/22/17 18:00 04/22/17 18:26 04/22/17 18:00 04/22/17 18:26 04/22/17 18:00 Intake and Output: 04/23/17 04/23/17 06:59 18:59 Intake Total 1104 Output Total 2400 Balance -1296 - Medications Medications: Current Medications Acetaminophen (Tylenol 650mg/20.3ml Solution Ud) 650 mg PO Q6H [facility] Stop: 04/27/17 00:00 Last Admin: 04/23/17 02:30 Dose: Not Given Albuterol/Ipratropium (Duoneb 3 Mg/0.5 Mg (3 Ml) Ud) 3 ml IH [id number] [facility] Last Admin: 04/23/17 08:16 Dose: 3 ml Carbamazepine (Tegretol) 100 mg PO BID [facility] PRN Reason: Protocol Last Admin: 04/22/17 18:24 Dose: 100 mg Folic Acid (Folic Acid) 1 mg PO DAILY [facility] Last Admin: 04/22/17 10:21 Dose: 1 mg Gabapentin (Neurontin) 300 mg PO HS [facility] PRN Reason: Protocol Last Admin: 04/23/17 00:00 Dose: 300 mg Heparin Sodium (Porcine) (Heparin) 5,000 units SC Q8 [facility] PRN Reason: Protocol Last Admin: 04/23/17 06:10 Dose: 5,000 units Multivitamins/Vitamin C 10 ml/ (Amino Acids) 1,010 mls @ 41.667 mls/hr IV .Q24H [facility] Stop: 04/24/17 17:59 Last Admin: 04/22/17 21:01 Dose: 41.667 mls/hr Micafungin Sodium 100 mg/ (Sodium Chloride) 100 mls @ 100 mls/hr IV DAILY [facility] PRN Reason: Protocol Stop: 05/04/17 22:31 Last Admin: 04/22/17 10:21 Dose: 100 mls/hr Potassium Chloride/Dextrose/Sod Cl (Potassium Chl 40 Meq In D5-1/2ns) 1,000 mls @ 50 mls/hr IV .Q20H [facility] Last Admin: 04/23/17 00:45 Dose: Not Given Ketorolac Tromethamine (Toradol) 30 mg IVP Q6 [facility] Last Admin: 04/23/17 05:43 Dose: Not Given Lidocaine (Lidoderm) 1 ea TD 2200 [facility] Last Admin: 04/22/17 21:40 Dose: Not Given Metoclopramide HCl (Reglan) 5 mg PO 0600,1130,1630,2200 [facility] Last Admin: 04/23/17 06:10 Dose: 5 mg Metoprolol Tartrate (Lopressor) 25 mg PO BID [facility] Last Admin: 04/22/17 18:26 Dose: 25 mg Mirtazapine (Remeron) 15 mg PO HS [facility] Last Admin: 04/22/17 21:16 Dose: 15 mg Morphine Sulfate (Morphine) 2 mg IVP Q3H PRN PRN Reason: Pain, severe (8-10) Last Admin: 04/23/17 08:47 Dose: 2 mg Nicotine (Nicoderm Cq) 1 patch TD DAILY [facility] Last Admin: 04/22/17 10:21 Dose: 1 patch Ondansetron HCl (Zofran Inj) 4 mg IVP Q4H PRN PRN Reason: Nausea/Vomiting Last Admin: 04/16/17 20:15 Dose: 4 mg Oxycodone HCl (Oxycodone Immediate Release Tab) 5 mg PO Q4H PRN PRN Reason: Pain, moderate (4-7) Pantoprazole Sodium (Protonix Inj) 40 mg IVP Q12 [facility] Last Admin: 04/22/17 21:14 Dose: 40 mg Polyethylene Glycol (Miralax) 17 gm PO DAILY [facility] Last Admin: 04/22/17 10:21 Dose: 17 gm Potassium Phos/Sodium Phos (Neutra-Phos) 1 pkt PO DAILY [facility] Ropinirole HCl (Requip) 1 mg PO AMHS [facility] Last Admin: 04/22/17 22:02 Dose: 1 mg Tamsulosin HCl (Flomax) 0.4 mg PO DAILY [facility] Last Admin: 04/22/17 10:21 Dose: 0.4 mg - Labs Labs: 04/23/17 06:45 04/23/17 06:45 PT 12.5 SECONDS (9.4-12.5) 04/09/17 15:35 INR 1.09 (0.93-1.08) H 04/09/17 15:35 APTT 32.7 Seconds (25.1-36.5) 04/09/17 15:35 - Constitutional Appears: Non-toxic, No Acute Distress, Cachectic, Chronically Ill - Head Exam Head Exam: ATRAUMATIC, NORMOCEPHALIC - Eye Exam Eye Exam: EOMI Pupil Exam: NORMAL ACCOMODATION - ENT Exam ENT Exam: Mucous Membranes Moist - Neck Exam Neck Exam: Full ROM - Respiratory Exam Respiratory Exam: NORMAL BREATHING PATTERN. absent: Accessory Muscle Use, Respiratory Distress - GI/Abdominal Exam GI & Abdominal Exam: Soft. absent: Distended, Firm, Guarding, Rigid, Tenderness , Rebound Additional comments: incision C/D/I w. antionette in place, J-tube in place - Extremities Exam Extremities Exam: absent: Calf Tenderness, Pedal Edema - Neurological Exam Neurological Exam: Alert, Awake, Oriented x3 Assessment and Plan - Assessment and Plan (Free Text) Assessment: 61M w. SMA syndrome, s/p gastrojejunostomy, POD#13 -NGT: 1400cc/24hr bilious, keep intermittent suction, NO meds to go through NGT -c/w Tube feeds via J-tube, administer meds via J-tube -continue w. IVF -D/C TPN -continue w. conservative management for high NGT output for 1 week, if no improvement will consider alternative options d/w GI team (surgical vs endoscopic intervention) -d/w attending Giulianoitis PGY3
[2017-04-23] MEDS: POLYETHYLENE GLYCOL 3350 17 GM/Dose PACKET PO SCH (10:11)
[2017-04-23] MEDS: Micafungin 100 MG in Sodium Chloride 0.9% 100 ML IV SCH (10:28)
--- NOTE | 2017-04-23 10:41 | CP.PCM.PN ---
<Noreen Winkler - Last Filed: 04/23/17 10:42> Subjective - Date & Time of Evaluation Date of Evaluation: 04/23/17 Time of Evaluation: 07:30 - Subjective Subjective: GI Fellow PGY4 Progress Note Patient seen and examined this morning. No acute overnight events or new complaints reported. Tolerating feeds, J-tube site is clean, dry and intact. NGT continues to drain bilious output. 12point ROS as per above otherwise negative Objective - Vital Signs/Intake and Output Vital Signs (last 24 hours): Temp Pulse Resp BP Pulse Ox 97.9 F 115 H 18 84/50 L 98 04/22/17 18:00 04/23/17 10:18 04/22/17 18:00 04/23/17 10:18 04/22/17 18:00 Intake and Output: 04/23/17 04/23/17 06:59 18:59 Intake Total 1104 Output Total 2400 Balance -1296 - Medications Medications: Current Medications Acetaminophen (Tylenol 650mg/20.3ml Solution Ud) 650 mg PO Q6H [facility] Stop: 04/27/17 00:00 Last Admin: 04/23/17 10:10 Dose: 650 mg Albuterol/Ipratropium (Duoneb 3 Mg/0.5 Mg (3 Ml) Ud) 3 ml IH [id number] [facility] Last Admin: 04/23/17 08:16 Dose: 3 ml Carbamazepine (Tegretol) 100 mg PO BID [facility] PRN Reason: Protocol Last Admin: 04/23/17 10:12 Dose: 100 mg Folic Acid (Folic Acid) 1 mg PO DAILY [facility] Last Admin: 04/23/17 10:12 Dose: 1 mg Gabapentin (Neurontin) 300 mg PO HS [facility] PRN Reason: Protocol Last Admin: 04/23/17 00:00 Dose: 300 mg Heparin Sodium (Porcine) (Heparin) 5,000 units SC Q8 [facility] PRN Reason: Protocol Last Admin: 04/23/17 06:10 Dose: 5,000 units Multivitamins/Vitamin C 10 ml/ (Amino Acids) 1,010 mls @ 41.667 mls/hr IV .Q24H [facility] Stop: 04/24/17 17:59 Last Admin: 04/22/17 21:01 Dose: 41.667 mls/hr Micafungin Sodium 100 mg/ (Sodium Chloride) 100 mls @ 100 mls/hr IV DAILY [facility] PRN Reason: Protocol Stop: 05/04/17 22:31 Last Admin: 04/23/17 10:28 Dose: 100 mls/hr Potassium Chloride/Dextrose/Sod Cl (Potassium Chl 40 Meq In D5-1/2ns) 1,000 mls @ 50 mls/hr IV .Q20H [facility] Last Admin: 04/23/17 00:45 Dose: Not Given Ketorolac Tromethamine (Toradol) 30 mg IVP Q6 [facility] Last Admin: 04/23/17 05:43 Dose: Not Given Lidocaine (Lidoderm) 1 ea TD 2200 [facility] Last Admin: 04/22/17 21:40 Dose: Not Given Metoclopramide HCl (Reglan) 5 mg PO 0600,1130,1630,2200 [facility] Last Admin: 04/23/17 06:10 Dose: 5 mg Metoprolol Tartrate (Lopressor) 25 mg PO BID [facility] Last Admin: 04/23/17 10:18 Dose: Not Given Mirtazapine (Remeron) 15 mg PO HS [facility] Last Admin: 04/22/17 21:16 Dose: 15 mg Morphine Sulfate (Morphine) 2 mg IVP Q3H PRN PRN Reason: Pain, severe (8-10) Last Admin: 04/23/17 08:47 Dose: 2 mg Nicotine (Nicoderm Cq) 1 patch TD DAILY [facility] Last Admin: 04/23/17 10:11 Dose: 1 patch Ondansetron HCl (Zofran Inj) 4 mg IVP Q4H PRN PRN Reason: Nausea/Vomiting Last Admin: 04/16/17 20:15 Dose: 4 mg Oxycodone HCl (Oxycodone Immediate Release Tab) 5 mg PO Q4H PRN PRN Reason: Pain, moderate (4-7) Pantoprazole Sodium (Protonix Inj) 40 mg IVP Q12 [facility] Last Admin: 04/23/17 10:11 Dose: 40 mg Polyethylene Glycol (Miralax) 17 gm PO DAILY [facility] Last Admin: 04/23/17 10:11 Dose: 17 gm Potassium Phos/Sodium Phos (Neutra-Phos) 1 pkt PO DAILY [facility] Ropinirole HCl (Requip) 1 mg PO AMHS [facility] Last Admin: 04/23/17 10:12 Dose: 1 mg Tamsulosin HCl (Flomax) 0.4 mg PO DAILY [facility] Last Admin: 04/23/17 10:12 Dose: 0.4 mg - Labs Labs: 04/23/17 06:45 04/23/17 06:45 PT 12.5 SECONDS (9.4-12.5) 04/09/17 15:35 INR 1.09 (0.93-1.08) H 04/09/17 15:35 APTT 32.7 Seconds (25.1-36.5) 04/09/17 15:35 - Constitutional Appears: Non-toxic, No Acute Distress, Cachectic, Chronically Ill - Head Exam Head Exam: ATRAUMATIC, NORMAL INSPECTION, NORMOCEPHALIC - Eye Exam Eye Exam: EOMI, Normal appearance Pupil Exam: PERRL - ENT Exam ENT Exam: Mucous Membranes Dry - Neck Exam Neck Exam: Full ROM - Respiratory Exam Respiratory Exam: Decreased Breath Sounds, NORMAL BREATHING PATTERN - Cardiovascular Exam Cardiovascular Exam: REGULAR RHYTHM - GI/Abdominal Exam GI & Abdominal Exam: Soft. absent: Distended, Guarding, Tenderness Additional comments: PEJ - Neurological Exam Neurological Exam: Alert, Awake, Oriented x3 - Psychiatric Exam Psychiatric exam: Normal Affect, Normal Mood - Skin Skin Exam: Dry, Intact, Normal Color, Warm Assessment and Plan - Assessment and Plan (Free Text) Assessment: 61yo male with history of hypertension, hyperlipidemia, CVA w/ residual left- sided weakness, chronic back pain who was admitted with abdominal pain associated with nausea, vomiting and weight loss secondary to SMA syndrome s/p gastrojenuostomy with persistent poor PO intake and bilious vomiting. 1. SMA syndrome 2. Malnutrition 3. Gastric outlet obstruction Plan: -Continue supportive with anti-emetics -s/p PEJ placement, tolerating tube feeds, site with no pain, erythema, or infection -Continue protonix 40mg PEJ BID -NGT to LIS due to ongoing obstruction -Recommend weaning TPN once tube feeds initiated and tolerated without issue -Recommend surgical follow up regarding high NGT output -Bowel regimen -Start CLD for pleasure feeds with NG suction afterwards -Discussed surgical and endoscopic options for pt with continued obstruction and he would like to wait to see if it resolves over time -Will continue to follow closely <Osmin Ozuna - Last Filed: 04/24/17 07:50> Objective - Vital Signs/Intake and Output Vital Signs (last 24 hours): Temp Pulse Resp BP Pulse Ox 98.1 F 112 H 20 85/59 L 96 04/23/17 18:00 04/23/17 18:21 04/23/17 18:00 04/23/17 18:21 04/23/17 18:00 - Medications Medications: Current Medications Acetaminophen (Tylenol 650mg/20.3ml Solution Ud) 650 mg PO Q6H [facility] Stop: 04/27/17 00:00 Last Admin: 04/24/17 06:49 Dose: Not Given Albuterol/Ipratropium (Duoneb 3 Mg/0.5 Mg (3 Ml) Ud) 3 ml IH [id number] [facility] Last Admin: 04/23/17 20:00 Dose: Not Given Carbamazepine (Tegretol) 100 mg PO BID [facility] PRN Reason: Protocol Last Admin: 04/23/17 18:21 Dose: 100 mg Folic Acid (Folic Acid) 1 mg PO DAILY [facility] Last Admin: 04/23/17 10:12 Dose: 1 mg Gabapentin (Neurontin) 300 mg PO HS [facility] PRN Reason: Protocol Last Admin: 04/23/17 21:29 Dose: 300 mg Heparin Sodium (Porcine) (Heparin) 5,000 units SC Q8 [facility] PRN Reason: Protocol Last Admin: 04/24/17 06:49 Dose: 5,000 units Micafungin Sodium 100 mg/ (Sodium Chloride) 100 mls @ 100 mls/hr IV DAILY [facility] PRN Reason: Protocol Stop: 05/04/17 22:31 Last Admin: 04/23/17 10:28 Dose: 100 mls/hr Potassium Chloride/Dextrose/Sod Cl (Potassium Chl 40 Meq In D5-1/2ns) 1,000 mls @ 50 mls/hr IV .Q20H [facility] Last Admin: 04/23/17 22:53 Dose: Not Given Ketorolac Tromethamine (Toradol) 30 mg IVP Q6 [facility] Last Admin: 04/24/17 06:49 Dose: Not Given Lidocaine (Lidoderm) 1 ea TD 2200 [facility] Last Admin: 04/23/17 22:52 Dose: Not Given Metoclopramide HCl (Reglan) 5 mg PO 0600,1130,1630,2200 [facility] Last Admin: 04/24/17 06:47 Dose: 5 mg Metoprolol Tartrate (Lopressor) 25 mg PO BID [facility] Last Admin: 04/23/17 18:21 Dose: Not Given Mirtazapine (Remeron) 15 mg PO HS [facility] Last Admin: 04/23/17 21:30 Dose: 15 mg Morphine Sulfate (Morphine) 2 mg IVP Q3H PRN PRN Reason: Pain, severe (8-10) Last Admin: 04/24/17 06:47 Dose: 2 mg Nicotine (Nicoderm Cq) 1 patch TD DAILY [facility] Last Admin: 04/23/17 10:11 Dose: 1 patch Ondansetron HCl (Zofran Inj) 4 mg IVP Q4H PRN PRN Reason: Nausea/Vomiting Last Admin: 04/16/17 20:15 Dose: 4 mg Oxycodone HCl (Oxycodone Immediate Release Tab) 5 mg PO Q4H PRN PRN Reason: Pain, moderate (4-7) Pantoprazole Sodium (Protonix Susp) 40 mg PEG 0600,1600 [facility] Last Admin: 04/24/17 06:47 Dose: 40 mg Polyethylene Glycol (Miralax) 17 gm PO DAILY [facility] Last Admin: 04/23/17 10:11 Dose: 17 gm Potassium Phos/Sodium Phos (Neutra-Phos) 1 pkt PO DAILY [facility] Last Admin: 04/23/17 11:16 Dose: 1 pkt Ropinirole HCl (Requip) 1 mg PO AMHS [facility] Last Admin: 04/23/17 21:30 Dose: 1 mg Tamsulosin HCl (Flomax) 0.4 mg PO DAILY [facility] Last Admin: 04/23/17 10:12 Dose: 0.4 mg - Labs Labs: 04/24/17 07:00 04/23/17 06:45 PT 12.5 SECONDS (9.4-12.5) 04/09/17 15:35 INR 1.09 (0.93-1.08) H 04/09/17 15:35 APTT 32.7 Seconds (25.1-36.5) 04/09/17 15:35 Attending/Attestation - Attestation I have personally seen and examined this patient.: Yes I have fully participated in the care of the patient.: Yes I have reviewed all pertinent clinical information, including history, physical exam and plan: Yes Notes (Text): 04/23/17 11:49 61 year old male with h/o CVA admitted with N/V, abdo pain, weight loss, found to have SMA syndrome now s/p gastrojenuostomy, with persistent poor PO intake and bilious vomiting found to have anastomotic efferent jejunal limb obstruction now s/p distal placement of feeding jejunostomy tube. 1. SMA syndrome 2. Malnutrition 3. Gastric outlet obstruction Plan: -s/p PEJ, tube tolerated at goal, PEJ adjusted slightly today, appears in good position -continue to have high output bilious NG drainage due to ongoing gastric outlet obstruction from SMA syndrome and subsequently obstructed gastrojejunal anastamosis -stop TPN -would allow clear liquids / sherbert in small amounts as pleasure feedings with NG suction afterwards -continue NG to LIS -aspiration precautions and HOB at 30 degrees -continue protonix 40 mg per J tube BID -there are a handful of options at this point which I discussed with the patient and surgical team -one is conservative management with continuous NGT with the hope that gastrojejunal ulceration/edema will heal/improve with medical therapy such that he can eventually resume eating and NG can be discontinued eventually -alternative options would be revised surgery, drainage PEG (placing a second PEG in the stomach for the purposes of gastric venting/drainage so the NG can be discontinued and he can have pleasure feeds), or last option would be EUS guided gastroenterostomy using AXIOS stent
[2017-04-23] MEDS: Potassium & Sodium Phosphate PO SCH (11:16)
[2017-04-23] MEDS ORDERED: Pantoprazole 40 mg EC Tab PO SCH (16:00)
--- NOTE | 2017-04-23 18:21 | PN ---
DATE: 04/23/2017 PULMONARY PROGRESS NOTE REFERRING PHYSICIAN: Radha Lantigua MD. SUBJECTIVE: Patient is lying in the bed, head at 45 degrees, still has nasogastric tube. Abdominal pain is better. No chest pain. Shortness of breath is improved. Cough is improved. No leg pain or leg swelling. OBJECTIVE: GENERAL: In no acute distress. VITAL SIGNS: Temperature is 98, heart rate is 115, respiratory rate is 20, blood pressure is 104/78, pulse ox 98% on nasal cannula. HEENT: Moist mucous membrane. No ulcer or thrush noted. NECK: Supple. No JVD. LUNGS: Have a fair airflow with a few rhonchi. HEART: S1 and S2. ABDOMEN: Positive bowel sounds. Soft. EXTREMITIES: There is no edema. NEUROLOGIC: Awake, alert, follows simple commands. MEDICATIONS: He is on DuoNeb q.6 hours, Flomax 0.4 mg daily, folic acid 1 mg daily, heparin 5000 units subcu q.8 hours, Lidoderm patch at affected area, metoprolol tartrate 25 mg twice a day, micafungin 100 mg daily, MiraLax 17 g daily, morphine 2 mg IV q.3 hours p.r.n., multivitamins daily, Neurontin 300 mg at bedtime, Neutra-Phos one pack daily, Nicoderm patch daily, oxycodone immediate release 5 mg q.4 hours p.r.n. Also receiving IV fluid with potassium, Protonix 40 mg daily, Reglan 5 mg q.i.d., mirtazapine 15 mg at bedtime, Requip 1 mg at bedtime, Tegretol 100 mg twice a day, Toradol 30 mg q.6 hours, Tylenol p.r.n., Zofran p.r.n. basis. LABORATORY DATA: Shows hemoglobin 9.0, hematocrit 29.1, WBC 9.8, platelet count is 416. Sodium 136, potassium 3.6, chloride 100, bicarbonate 28, BUN 18, creatinine 0.4, glucose 107, calcium is 8.4, phosphorus 1.6, magnesium is 2.3. AST 32, ALT 25, alk phos is 130, albumin is 2.6. IMPRESSION AND PLAN: Multilobar aspiration pneumonia, superior mesenteric artery syndrome status post gastrojejunostomy, also has a J-tube placement. Still having nasogastric tube. Had a bowel movement yesterday. Abdomen is soft. Continue bronchodilator. Keep head at 45 degrees. Antibiotics. Continue Reglan if is okay with Surgery. May discontinue nasogastric tube. Continue clear liquid diet and continue J-tube feeding, out of bed to chair, physical therapy. Follow up labs in the morning. Thank you and we will follow with you. Velvet Castillo MD
--- NOTE | 2017-04-23 21:07 | PN ---
DATE: 04/23/2017 SUBJECTIVE: The is patient seen earlier today in room 245, bed 1. No fevers and no chills. The patient is overall slightly better. PHYSICAL EXAMINATION: VITAL SIGNS: Temperature is 97, blood pressure is 84/50, respiratory rate 20, heart rate of 115. HEENT: Unremarkable. NECK: Supple. LUNGS: Have decreased breath sounds. HEART: Normal S1, S2. ABDOMEN: Soft, nontender. LABORATORY DATA: Reveals a white count of 9.8, hemoglobin of 9, platelets of 416. Coagulation is noted. Chemistries reveal a BUN of 18, creatinine of 0.4. The BNP is noted. Urinalysis is noted and HIV is negative. Microbiology reveals the patient's repeat blood cultures are negative. Review of orders reveals the patient to be on Mycamine. ASSESSMENT AND PLAN: This is a 61-year-old male with a history of hypertension, cerebrovascular accident, left-sided weakness, anxiety, arthritis, admitted with a small bowel obstruction, had abdominal surgery, open gastrojejunostomy procedure, postprocedure day #11, with sepsis and Alyssa glabrata fungemia. Repeat blood cultures one bottle was still positive. A third set of blood cultures is finally negative and currently on Mycamine with cultures negative from the 04/20/2017, today is day #4 of at least 14 days. Echo results from the 04/21/2017 reveals no evidence of endocarditis. Should have an ophthalmology evaluation. progress note is reviewed, states the patient had a superior mesenteric artery syndrome, malnutrition, and gastric outlet obstruction. The patient's pathology significant for chronic gastritis, negative for malignancy. Dr. Ahumada progress note is reviewed. We will continue with Mycamine. We will follow with you. Fidencio Mckenna MD Fidencio Mckenna [id number]
--- NOTE | 2017-04-23 21:28 | PN ---
DATE: SUBJECTIVE: The patient is 61-year-old male. The patient seen and examined at the bedside, sleepy, arousable, no acute event happened overnight. No fever, no chills. Tolerating feeding with J-tube. J-tube area looks dry, intact and healthy. NG tube continuously draining bilious output. The patient is getting pain medications. No fever, no chills. PHYSICAL EXAMINATION: VITAL SIGNS: Temperature 97.9, pulse 115, respiratory rate 18, blood pressure 84/50, pulse oximetry is 98 . HEENT: Head: Normocephalic, atraumatic. Eyes: PERRLA. Extraocular muscles intact. Conjunctivae clear. Nose patent. Mucous membrane moist. NECK: Supple. No carotid bruits. No JVD or thyromegaly. CHEST: Bilaterally symmetrical. HEART: S1 and S2 positive. LUNGS: Clear to auscultation. ABDOMEN: Soft. Bowel sounds positive. No organomegaly. EXTREMITIES: No edema. No cyanosis. NEUROLOGICAL: The patient is sleepy. Moving all 4 extremities. No focal deficits. MEDICATIONS: Tylenol, DuoNeb, Tegretol, folic acid, Neurontin, multivitamins, micafungin, potassium, Toradol, Lidoderm, nicotine patch, Zofran, oxycodone, Protonix, MiraLax, Neutra-Phos, Flomax. LABORATORY DATA: White blood cells 9.8, hemoglobin 9.0, hematocrit 29.1, platelets 460. Sodium 136, potassium 3.6, BUN 18, creatinine 0.4, glucose 107. ASSESSMENT AND PLAN: Mr. Brandyn Wang is 61-year-old male with anemia, with history of hypotension, hypercholesterolemia, severe residual left-sided weakness, chronic back pain, was admitted for abdominal pain associated with nausea, vomiting, weight loss secondary to superior mesenteric artery syndrome, status post gastrojejunostomy with persistent poor p.o. intake and bilious vomiting, put J-tube. The patient is getting feeding with J-tube. Nasogastric tube is still draining bilious material. The patient has gastric outlet obstruction. Continue supportive care, antiemetic. Status post J-tube placement, tolerating tube feeding. Continue his Protonix. Continue nasogastric tube due to ongoing obstruction. Weaning from TPN once feeding initiated and tolerated without issues. The patient needs surgical followup with high NG tube output. Appreciated surgical MD input, seen by Dr. Everton Laboy. We will follow up. Radha Lantigua MD [facility]
[2017-04-23] MEDS ORDERED: Pantoprazole 40 mg Susp UD PEG SCH (22:32)
[2017-04-23] MEDS: Lidocaine 5% Patch TD SCH (22:52)
[2017-04-24] MEDS: Morphine 2 mg/ml ISec IVP PRN ×7 (00:24→21:53)
[2017-04-24] MEDS: Metoclopramide 5 mg/5 ml Oral Sol PO SCH ×2 (06:47→22:01)
[2017-04-24] MEDS: Pantoprazole 40 mg Susp UD PEG SCH ×2 (06:47→17:46)
[2017-04-24] MEDS: Acetaminophen 650mg/20.3ml solution UD PO SCH ×4 (06:49→21:43)
[2017-04-24 07:37] LABS: BASO # 0.01 K/mm3 (0.0-2.0); BASO % 0.1 % (0.0-3.0); EOS # 0.5 (0.0-0.7); EOS % 3.6 % (1.5-5.0); GRAN # 8.92 (1.4-6.5); GRAN % 69.6 % (50.0-68.0); HEMOGLOBIN 9.2 g/dL (14.0-18.0); LYMPH # 2.1 (1.2-3.4); LYMPH % 16.2 % (22.0-35.0); MEAN CELL VOLUME 92.3 fl (80.0-105.0); MEAN CORPUSCULAR HEMOGLOBIN 28.2 pg (25.0-35.0); MEAN CORPUSCULAR HGB CONC 30.6 g/dl (31.0-37.0); MEAN PLATELET VOLUME 9.8 fl (7.0-11.0); MONO # 1.3 (0.1-0.6); MONO % 10.5 % (1.0-6.0); RBC 3.26 10^6/uL (3.5-6.1); RED CELL DISTRIBUTION WIDTH 17.6 % (11.5-14.5); WHITE BLOOD COUNT 12.8 10^3/ul (4.5-11.0)
[2017-04-24] MEDS: Albuterol-Ipratrop 3 mg / 0.5 (3 ml) UD IH SCH ×2 (07:57→15:07)
[2017-04-24 08:18] LABS: ALBUMIN 2.8 g/dL (3.0-4.8); ALT/SGPT 21 U/L (7-56); AST/SGOT 30 U/L (17-59); BLOOD UREA NITROGEN 21 mg/dL (7-21); CALCIUM 8.1 mg/dL (8.4-10.5); GFR AFRICAN-AMERICAN > 60; GFR NON-AFRICAN AMERICAN > 60; MAGNESIUM 2.4 mg/dL (1.7-2.2)
--- NOTE | 2017-04-24 09:06 | CP.PCM.PN ---
<Blaine Naylor - Last Filed: 04/24/17 09:02> Subjective - Date & Time of Evaluation Date of Evaluation: 04/24/17 Time of Evaluation: 09:02 - Subjective Subjective: GI Progress note - Blaine Naylor PGY2 Patient seen and examined at bedside this morning. No acute overnight events or new complaints reported. Per nursing, NGT output has been 1200cc over the last 12hrs. Has been tolerating PEJ feeds without issue as well as pleasure feeds. Reports low back pain. 12point ROS as per above otherwise negative Objective - Vital Signs/Intake and Output Vital Signs (last 24 hours): Temp Pulse Resp BP Pulse Ox 97.7 F 121 H 18 99/74 L 96 04/24/17 06:00 04/24/17 06:00 04/24/17 06:00 04/24/17 06:00 04/24/17 06:00 Intake and Output: 04/24/17 04/24/17 06:59 18:59 Intake Total 600 Output Total 1200 Balance -600 - Medications Medications: Current Medications Acetaminophen (Tylenol 650mg/20.3ml Solution Ud) 650 mg PO Q6H [facility] Stop: 04/27/17 00:00 Last Admin: 04/24/17 06:49 Dose: Not Given Albuterol/Ipratropium (Duoneb 3 Mg/0.5 Mg (3 Ml) Ud) 3 ml IH [id number] [facility] Last Admin: 04/24/17 07:57 Dose: Not Given Carbamazepine (Tegretol) 100 mg PO BID [facility] PRN Reason: Protocol Last Admin: 04/23/17 18:21 Dose: 100 mg Folic Acid (Folic Acid) 1 mg PO DAILY [facility] Last Admin: 04/23/17 10:12 Dose: 1 mg Gabapentin (Neurontin) 300 mg PO HS [facility] PRN Reason: Protocol Last Admin: 04/23/17 21:29 Dose: 300 mg Heparin Sodium (Porcine) (Heparin) 5,000 units SC Q8 [facility] PRN Reason: Protocol Last Admin: 04/24/17 06:49 Dose: 5,000 units Micafungin Sodium 100 mg/ (Sodium Chloride) 100 mls @ 100 mls/hr IV DAILY [facility] PRN Reason: Protocol Stop: 05/04/17 22:31 Last Admin: 04/23/17 10:28 Dose: 100 mls/hr Potassium Chloride/Dextrose/Sod Cl (Potassium Chl 40 Meq In D5-1/2ns) 1,000 mls @ 50 mls/hr IV .Q20H [facility] Last Admin: 04/23/17 22:53 Dose: Not Given Ketorolac Tromethamine (Toradol) 30 mg IVP Q6 [facility] Last Admin: 04/24/17 06:49 Dose: Not Given Lidocaine (Lidoderm) 1 ea TD 2200 [facility] Last Admin: 04/23/17 22:52 Dose: Not Given Metoclopramide HCl (Reglan) 5 mg PO 0600,1130,1630,2200 [facility] Last Admin: 04/24/17 06:47 Dose: 5 mg Metoprolol Tartrate (Lopressor) 25 mg PO BID [facility] Last Admin: 04/23/17 18:21 Dose: Not Given Mirtazapine (Remeron) 15 mg PO HS [facility] Last Admin: 04/23/17 21:30 Dose: 15 mg Morphine Sulfate (Morphine) 2 mg IVP Q3H PRN PRN Reason: Pain, severe (8-10) Last Admin: 04/24/17 06:47 Dose: 2 mg Nicotine (Nicoderm Cq) 1 patch TD DAILY [facility] Last Admin: 04/23/17 10:11 Dose: 1 patch Ondansetron HCl (Zofran Inj) 4 mg IVP Q4H PRN PRN Reason: Nausea/Vomiting Last Admin: 04/16/17 20:15 Dose: 4 mg Oxycodone HCl (Oxycodone Immediate Release Tab) 5 mg PO Q4H PRN PRN Reason: Pain, moderate (4-7) Pantoprazole Sodium (Protonix Susp) 40 mg PEG 0600,1600 [facility] Last Admin: 04/24/17 06:47 Dose: 40 mg Polyethylene Glycol (Miralax) 17 gm PO DAILY [facility] Last Admin: 04/23/17 10:11 Dose: 17 gm Potassium Phos/Sodium Phos (Neutra-Phos) 1 pkt PO DAILY [facility] Last Admin: 04/23/17 11:16 Dose: 1 pkt Ropinirole HCl (Requip) 1 mg PO AMHS [facility] Last Admin: 04/23/17 21:30 Dose: 1 mg Tamsulosin HCl (Flomax) 0.4 mg PO DAILY [facility] Last Admin: 04/23/17 10:12 Dose: 0.4 mg - Labs Labs: 04/24/17 07:00 04/24/17 07:00 PT 12.5 SECONDS (9.4-12.5) 04/09/17 15:35 INR 1.09 (0.93-1.08) H 04/09/17 15:35 APTT 32.7 Seconds (25.1-36.5) 04/09/17 15:35 - Constitutional Appears: Cachectic, Chronically Ill - Head Exam Head Exam: ATRAUMATIC, NORMOCEPHALIC - Eye Exam Eye Exam: EOMI, PERRL - ENT Exam ENT Exam: Mucous Membranes Dry - Respiratory Exam Respiratory Exam: absent: Rales, Rhonchi, Wheezes - Cardiovascular Exam Cardiovascular Exam: +S1, +S2. absent: Gallop, Rubs - GI/Abdominal Exam GI & Abdominal Exam: Soft. absent: Distended, Firm, Guarding, Rigid, Tenderness , Rebound Additional comments: J-tube site clean, dry, intact - Extremities Exam Extremities Exam: absent: Pedal Edema - Neurological Exam Neurological Exam: Alert, Awake, Oriented x3 - Psychiatric Exam Psychiatric exam: Normal Affect, Normal Mood - Skin Skin Exam: Dry, Intact, Normal Color, Warm Assessment and Plan - Assessment and Plan (Free Text) Plan: 61yo male with history of hypertension, hyperlipidemia, CVA w/ residual left- sided weakness, chronic back pain admitted with abdominal pain associated with nausea, vomiting and weight loss secondary to SMA syndrome s/p gastrojenuostomy with persistent poor PO intake and bilious vomiting. 1. SMA syndrome 2. Malnutrition 3. Gastric outlet obstruction Plan: -s/p PEJ placement, tolerating tube feeds as per nutrition recommends, site with no pain, erythema, or infection -Continue protonix 40mg PEJ BID -NGT to LIS due to ongoing obstruction -Continue supportive anti-emetics -Bowel regimen -TPN has been discontinued -Aspiration precautions -HOB > 30' -Continue CLD for pleasure feeds with NG suction afterwards -Recommend surgical follow up regarding high NGT output -No further GI intervention planned at this time. We will sign off this case. Please reconsult as deemed necessary. Thank you for this consult. <Matheus De La Torre Y - Last Filed: 04/24/17 09:25> Objective - Vital Signs/Intake and Output Vital Signs (last 24 hours): Temp Pulse Resp BP Pulse Ox 97.7 F 121 H 18 99/74 L 96 04/24/17 06:00 04/24/17 06:00 04/24/17 06:00 04/24/17 06:00 04/24/17 06:00 Intake and Output: 04/24/17 04/24/17 06:59 18:59 Intake Total 600 Output Total 1200 Balance -600 - Medications Medications: Current Medications Acetaminophen (Tylenol 650mg/20.3ml Solution Ud) 650 mg PO Q6H [facility] Stop: 04/27/17 00:00 Last Admin: 04/24/17 06:49 Dose: Not Given Albuterol/Ipratropium (Duoneb 3 Mg/0.5 Mg (3 Ml) Ud) 3 ml IH [id number] [facility] Last Admin: 04/24/17 07:57 Dose: Not Given Carbamazepine (Tegretol) 100 mg PO BID [facility] PRN Reason: Protocol Last Admin: 04/23/17 18:21 Dose: 100 mg Folic Acid (Folic Acid) 1 mg PO DAILY [facility] Last Admin: 04/23/17 10:12 Dose: 1 mg Gabapentin (Neurontin) 300 mg PO HS [facility] PRN Reason: Protocol Last Admin: 04/23/17 21:29 Dose: 300 mg Heparin Sodium (Porcine) (Heparin) 5,000 units SC Q8 [facility] PRN Reason: Protocol Last Admin: 04/24/17 06:49 Dose: 5,000 units Micafungin Sodium 100 mg/ (Sodium Chloride) 100 mls @ 100 mls/hr IV DAILY [facility] PRN Reason: Protocol Stop: 05/04/17 22:31 Last Admin: 04/23/17 10:28 Dose: 100 mls/hr Potassium Chloride/Dextrose/Sod Cl (Potassium Chl 40 Meq In D5-1/2ns) 1,000 mls @ 50 mls/hr IV .Q20H [facility] Last Admin: 04/23/17 22:53 Dose: Not Given Ketorolac Tromethamine (Toradol) 30 mg IVP Q6 [facility] Last Admin: 04/24/17 06:49 Dose: Not Given Lidocaine (Lidoderm) 1 ea TD 2200 [facility] Last Admin: 04/23/17 22:52 Dose: Not Given Metoclopramide HCl (Reglan) 5 mg PO 0600,1130,1630,2200 [facility] Last Admin: 04/24/17 06:47 Dose: 5 mg Metoprolol Tartrate (Lopressor) 25 mg PO BID [facility] Last Admin: 04/23/17 18:21 Dose: Not Given Mirtazapine (Remeron) 15 mg PO HS [facility] Last Admin: 04/23/17 21:30 Dose: 15 mg Morphine Sulfate (Morphine) 2 mg IVP Q3H PRN PRN Reason: Pain, severe (8-10) Last Admin: 04/24/17 06:47 Dose: 2 mg Nicotine (Nicoderm Cq) 1 patch TD DAILY [facility] Last Admin: 04/23/17 10:11 Dose: 1 patch Ondansetron HCl (Zofran Inj) 4 mg IVP Q4H PRN PRN Reason: Nausea/Vomiting Last Admin: 04/16/17 20:15 Dose: 4 mg Oxycodone HCl (Oxycodone Immediate Release Tab) 5 mg PO Q4H PRN PRN Reason: Pain, moderate (4-7) Pantoprazole Sodium (Protonix Susp) 40 mg PEG 0600,1600 [facility] Last Admin: 04/24/17 06:47 Dose: 40 mg Polyethylene Glycol (Miralax) 17 gm PO DAILY [facility] Last Admin: 04/23/17 10:11 Dose: 17 gm Potassium Phos/Sodium Phos (Neutra-Phos) 1 pkt PO DAILY [facility] Last Admin: 04/23/17 11:16 Dose: 1 pkt Ropinirole HCl (Requip) 1 mg PO AMHS [facility] Last Admin: 04/23/17 21:30 Dose: 1 mg Tamsulosin HCl (Flomax) 0.4 mg PO DAILY [facility] Last Admin: 04/23/17 10:12 Dose: 0.4 mg - Labs Labs: 04/24/17 07:00 04/24/17 07:00 PT 12.5 SECONDS (9.4-12.5) 04/09/17 15:35 INR 1.09 (0.93-1.08) H 04/09/17 15:35 APTT 32.7 Seconds (25.1-36.5) 04/09/17 15:35 Attending/Attestation - Attestation I have personally seen and examined this patient.: Yes I have fully participated in the care of the patient.: Yes I have reviewed all pertinent clinical information, including history, physical exam and plan: Yes Notes (Text): 04/24/17 09:20 I have seen and examined patient with GI fellow and medical affairs manager. No acute events overnight, he is seen resting in bed comfortably. He denies abdominal pain, nausea, vomiting. Tolerating jejunostomy feeding without difficulty. He still continues to have significant NGT output (nearly 1200 cc bilious fluid over past 12 hours). CVA Weight loss SMA syndrome s/p gastrojejunostomy with subsequent feeding jejunostomy Efferent limb stenosis - Patient receiving pleasure feedings via mouth, though would caution given high risk of aspiration in setting of ongoing obstructive pathology - Strict aspiration precautions with HOB elevation - Continue with PPI therapy - Continue with PEJ feeding, monitor for residuals - Follow up surgical recommendations regarding potential surgical revision given ongoing patient symptoms with high NGT output - Other options as outlined previously include venting gastrostomy vs EUS guided stent placement. Currently no planned GI intervention, will sign off case. If surgical team has no further plans for intervention and patient is willing to undergo further endoscopic therapy, please reconsult as necessary thank you.
--- NOTE | 2017-04-24 09:51 | PN ---
DATE: 04/22/2017 SUBJECTIVE: Patient is in bed, in no acute distress. Nontoxic. PHYSICAL EXAMINATION: VITAL SIGNS: Temperature is 97, blood pressure is 108/70, respiratory rate of 18, and heart rate of 100. HEENT: Unremarkable. NECK: Supple. LUNGS: With decreased breath sounds. HEART: Normal S1 and S2. ABDOMEN: Soft, nontender. LABORATORY DATA: Reveals a white count of 10,000, hemoglobin of 8, and platelets of 416. BUN of 17, creatinine of 0.4, procalcitonin is 0.21. Urinalysis is noted. HIV is negative. Multiple blood cultures initially from 04/16 are Alyssa glabrata; repeat second set still with Alyssa glabrata; and the third set is from 04/20/2017, no growth. ASSESSMENT AND PLAN: This is a 61-year-old male, who was seen early this morning with a history of hypertension, cerebrovascular accident, left-sided weakness, anxiety, arthritis; admitted with small bowel obstruction, abdominal surgery, open gastrojejunostomy procedure, post-procedure day number 11, now with sepsis, Alyssa glabrata fungemia, repeat third set of blood culture show no growth. Patient is on Mycamine, today is day number 3 of Mycamine, will need at least 14 days. Should have Alyssa glabrata sensitivity and Dr. Ozuna's note from today is appreciated. Patient is status post superior mesenteric artery syndrome and Dr. Toscano's note is appreciated. Patient had an echocardiogram yesterday, read by Dr. Luciano Nelson, which is an unremarkable echocardiogram. Fidencio Mckenna MD
--- NOTE | 2017-04-24 09:54 | PN ---
DATE: 04/22/2017 SUBJECTIVE: The patient is a 61-year-old male. The patient is seen and examined at the bedside, looking comfortable. No nausea, vomiting. Still having NG tube, sucking green bilious material, tolerating J-tube feeding as per nutrition recommendation. J-tube site looks healthy. Surgical wound looks healthy. Healing very well. No fever. No chills. PHYSICAL EXAMINATION: VITAL SIGNS: Temperature 98.2, pulse 100, respiratory rate 19, blood pressure 108/75, pulse oximetry 99. HEENT: Head is normocephalic and atraumatic. Eyes: PERRLA. Extraocular muscles are intact. Conjunctivae are clear. Nose is patent. Mucous membranes are moist. NECK: Supple. No carotid bruits. No JVD or thyromegaly. CHEST: Bilaterally symmetrical. HEART: S1 and S2 positive. LUNGS: Clear to auscultation. ABDOMEN: Soft. Bowel sounds present. No organomegaly. EXTREMITIES: No edema. No cyanosis. NEUROLOGIC: The patient is awake and alert. Moving all four extremities. No focal deficits. MEDICATIONS: DuoNeb, Tegretol, folic acid, heparin, multivitamin . micafungin, potassium, Toradol, Lidoderm, metoprolol, Nicoderm patch, and Zofran. LABORATORY DATA: White blood cell 10.6, hemoglobin 8.6, hematocrit 26.7, platelets 416. Sodium 135, potassium 3.2, BUN 17, creatinine 0.4, glucose 125. ASSESSMENT AND PLAN: Mr. Brandyn Wang is a 61-year-old male with anemia; hypokalemia, replaced; hyperglycemia; renal insufficiency; abnormal liver function tests; proteinuria; ketonuria; hematuria. Stool occult blood negative. Human immunodeficiency virus 1 and 2 antigen/antibody fourth generation is nonreactive. Seen by Dr. Osmin Ozuna, leasing specialist and surgeon, Dr. Toscano. Dr. Mckenna, ID, on the case. History of hypertension, hypercholesterolemia, cerebrovascular accident with residual left-sided weakness, chronic back pain. He is admitted with bad abdominal pain associated with nausea, vomiting secondary to superior mesenteric artery syndrome status post gastrojejunostomy, p.o. B12, and bilious vomiting through the nasogastric tube. GI and DVT prophylaxis. Repeat labs. The patient is deconditioned, needs physical therapy, supportive care . Continue Protonix. Weaning the TPN once tube feeding initiated, tolerated without issues. we will follow up. Radha Lantigua MD [facility]
[2017-04-24] MEDS: Potassium & Sodium Phosphate PO SCH (10:00)
--- NOTE | 2017-04-24 11:11 | CP.PCM.PN ---
Subjective - Date & Time of Evaluation Date of Evaluation: 04/24/17 Time of Evaluation: 07:30 - Subjective Subjective: Pt seen and examined this AM. Patient has persistent high output in his NGT. Tolerating j-tube feeds with diarrhea. Denies abdominal pain, nausea, vomiting, or any other symptoms. Objective - Vital Signs/Intake and Output Vital Signs (last 24 hours): Temp Pulse Resp BP Pulse Ox 97.7 F 121 H 18 99/74 L 96 04/24/17 06:00 04/24/17 06:00 04/24/17 06:00 04/24/17 06:00 04/24/17 06:00 Intake and Output: 04/24/17 04/24/17 06:59 18:59 Intake Total 600 Output Total 1200 Balance -600 - Medications Medications: Current Medications Acetaminophen (Tylenol 650mg/20.3ml Solution Ud) 650 mg PO Q6H [facility] Stop: 04/27/17 00:00 Last Admin: 04/24/17 06:49 Dose: Not Given Albuterol/Ipratropium (Duoneb 3 Mg/0.5 Mg (3 Ml) Ud) 3 ml IH [id number] [facility] Last Admin: 04/24/17 07:57 Dose: Not Given Carbamazepine (Tegretol) 100 mg PO BID [facility] PRN Reason: Protocol Last Admin: 04/23/17 18:21 Dose: 100 mg Folic Acid (Folic Acid) 1 mg PO DAILY [facility] Last Admin: 04/23/17 10:12 Dose: 1 mg Gabapentin (Neurontin) 300 mg PO HS [facility] PRN Reason: Protocol Last Admin: 04/23/17 21:29 Dose: 300 mg Heparin Sodium (Porcine) (Heparin) 5,000 units SC Q8 [facility] PRN Reason: Protocol Last Admin: 04/24/17 06:49 Dose: 5,000 units Micafungin Sodium 100 mg/ (Sodium Chloride) 100 mls @ 100 mls/hr IV DAILY [facility] PRN Reason: Protocol Stop: 05/04/17 22:31 Last Admin: 04/23/17 10:28 Dose: 100 mls/hr Potassium Chloride/Dextrose/Sod Cl (Potassium Chl 40 Meq In D5-1/2ns) 1,000 mls @ 50 mls/hr IV .Q20H [facility] Last Admin: 04/23/17 22:53 Dose: Not Given Ketorolac Tromethamine (Toradol) 30 mg IVP Q6 [facility] Last Admin: 04/24/17 06:49 Dose: Not Given Lidocaine (Lidoderm) 1 ea TD 2200 [facility] Last Admin: 04/23/17 22:52 Dose: Not Given Metoclopramide HCl (Reglan) 5 mg PO 0600,1130,1630,2200 [facility] Last Admin: 04/24/17 06:47 Dose: 5 mg Metoprolol Tartrate (Lopressor) 25 mg PO BID [facility] Last Admin: 04/23/17 18:21 Dose: Not Given Mirtazapine (Remeron) 15 mg PO HS [facility] Last Admin: 04/23/17 21:30 Dose: 15 mg Morphine Sulfate (Morphine) 2 mg IVP Q3H PRN PRN Reason: Pain, severe (8-10) Last Admin: 04/24/17 06:47 Dose: 2 mg Nicotine (Nicoderm Cq) 1 patch TD DAILY [facility] Last Admin: 04/23/17 10:11 Dose: 1 patch Ondansetron HCl (Zofran Inj) 4 mg IVP Q4H PRN PRN Reason: Nausea/Vomiting Last Admin: 04/16/17 20:15 Dose: 4 mg Oxycodone HCl (Oxycodone Immediate Release Tab) 5 mg PO Q4H PRN PRN Reason: Pain, moderate (4-7) Pantoprazole Sodium (Protonix Susp) 40 mg PEG 0600,1600 [facility] Last Admin: 04/24/17 06:47 Dose: 40 mg Polyethylene Glycol (Miralax) 17 gm PO DAILY [facility] Last Admin: 04/23/17 10:11 Dose: 17 gm Potassium Phos/Sodium Phos (Neutra-Phos) 1 pkt PO DAILY [facility] Last Admin: 04/23/17 11:16 Dose: 1 pkt Ropinirole HCl (Requip) 1 mg PO AMHS [facility] Last Admin: 04/23/17 21:30 Dose: 1 mg Tamsulosin HCl (Flomax) 0.4 mg PO DAILY [facility] Last Admin: 04/23/17 10:12 Dose: 0.4 mg - Labs Labs: 04/24/17 07:00 04/24/17 07:00 PT 12.5 SECONDS (9.4-12.5) 04/09/17 15:35 INR 1.09 (0.93-1.08) H 04/09/17 15:35 APTT 32.7 Seconds (25.1-36.5) 04/09/17 15:35 - Constitutional Appears: Non-toxic, No Acute Distress, Chronically Ill - Head Exam Head Exam: ATRAUMATIC, NORMOCEPHALIC - Eye Exam Eye Exam: Normal appearance. absent: Conjunctival injection, Scleral icterus - ENT Exam ENT Exam: Mucous Membranes Moist, Normal Oropharynx - Respiratory Exam Respiratory Exam: NORMAL BREATHING PATTERN. absent: Accessory Muscle Use, Respiratory Distress - GI/Abdominal Exam GI & Abdominal Exam: Soft. absent: Distended - Neurological Exam Neurological Exam: Alert, Awake, Oriented x3 - Psychiatric Exam Psychiatric exam: Depressed, Flat Affect - Skin Skin Exam: Dry, Normal Color, Warm Assessment and Plan - Assessment and Plan (Free Text) Assessment: 61M w. SMA syndrome, s/p gastrojejunostomy, POD#14 -NGT: 1200cc/24hr bilious, keep intermittent suction, NO meds to go through NGT -WBC elevated to 12.8 from 9.8 yesterday with tachycardia. No fevers Plan: -c/w Tube feeds via J-tube, administer meds via J-tube. Follow up nutrition recommendations for modifications -continue w/IVF -continue w. conservative management for high NGT output for 6 more days, if no improvement will consider alternative options d/w GI team (surgical vs endoscopic intervention) -NPO except for ice/lemon ice for pleasure Discussed with Dr. Everton Granados, PGY2
[2017-04-24] MEDS: POLYETHYLENE GLYCOL 3350 17 GM/Dose PACKET PO SCH (11:54)
[2017-04-24] MEDS: Micafungin 100 MG in Sodium Chloride 0.9% 100 ML IV SCH (12:00)
--- NOTE | 2017-04-24 16:56 | CP.PCM.PN ---
Subjective - Date & Time of Evaluation Date of Evaluation: 04/24/17 Time of Evaluation: 10:30 - Subjective Subjective: No fevers, not in distress. Objective - Vital Signs/Intake and Output Vital Signs (last 24 hours): Temp Pulse Resp BP Pulse Ox 97.7 F 121 H 18 99/74 L 96 04/24/17 06:00 04/24/17 06:00 04/24/17 06:00 04/24/17 06:00 04/24/17 06:00 Intake and Output: 04/24/17 04/24/17 06:59 18:59 Intake Total 600 Output Total 1200 Balance -600 - Medications Medications: Current Medications Acetaminophen (Tylenol 650mg/20.3ml Solution Ud) 650 mg PO Q6H [facility] Stop: 04/27/17 00:00 Last Admin: 04/24/17 06:49 Dose: Not Given Albuterol/Ipratropium (Duoneb 3 Mg/0.5 Mg (3 Ml) Ud) 3 ml IH [id number] [facility] Last Admin: 04/24/17 07:57 Dose: Not Given Carbamazepine (Tegretol) 100 mg PO BID [facility] PRN Reason: Protocol Last Admin: 04/23/17 18:21 Dose: 100 mg Folic Acid (Folic Acid) 1 mg PO DAILY [facility] Last Admin: 04/23/17 10:12 Dose: 1 mg Gabapentin (Neurontin) 300 mg PO HS [facility] PRN Reason: Protocol Last Admin: 04/23/17 21:29 Dose: 300 mg Heparin Sodium (Porcine) (Heparin) 5,000 units SC Q8 [facility] PRN Reason: Protocol Last Admin: 04/24/17 06:49 Dose: 5,000 units Micafungin Sodium 100 mg/ (Sodium Chloride) 100 mls @ 100 mls/hr IV DAILY [facility] PRN Reason: Protocol Stop: 05/04/17 22:31 Last Admin: 04/23/17 10:28 Dose: 100 mls/hr Potassium Chloride/Dextrose/Sod Cl (Potassium Chl 40 Meq In D5-1/2ns) 1,000 mls @ 50 mls/hr IV .Q20H [facility] Last Admin: 04/23/17 22:53 Dose: Not Given Ketorolac Tromethamine (Toradol) 30 mg IVP Q6 [facility] Last Admin: 04/24/17 06:49 Dose: Not Given Lidocaine (Lidoderm) 1 ea TD 2200 [facility] Last Admin: 04/23/17 22:52 Dose: Not Given Metoclopramide HCl (Reglan) 5 mg PO 0600,1130,1630,2200 [facility] Last Admin: 04/24/17 06:47 Dose: 5 mg Metoprolol Tartrate (Lopressor) 25 mg PO BID [facility] Last Admin: 04/23/17 18:21 Dose: Not Given Mirtazapine (Remeron) 15 mg PO HS [facility] Last Admin: 04/23/17 21:30 Dose: 15 mg Morphine Sulfate (Morphine) 2 mg IVP Q3H PRN PRN Reason: Pain, severe (8-10) Last Admin: 04/24/17 06:47 Dose: 2 mg Nicotine (Nicoderm Cq) 1 patch TD DAILY [facility] Last Admin: 04/23/17 10:11 Dose: 1 patch Ondansetron HCl (Zofran Inj) 4 mg IVP Q4H PRN PRN Reason: Nausea/Vomiting Last Admin: 04/16/17 20:15 Dose: 4 mg Oxycodone HCl (Oxycodone Immediate Release Tab) 5 mg PO Q4H PRN PRN Reason: Pain, moderate (4-7) Pantoprazole Sodium (Protonix Susp) 40 mg PEG 0600,1600 [facility] Last Admin: 04/24/17 06:47 Dose: 40 mg Polyethylene Glycol (Miralax) 17 gm PO DAILY [facility] Last Admin: 04/23/17 10:11 Dose: 17 gm Potassium Phos/Sodium Phos (Neutra-Phos) 1 pkt PO DAILY [facility] Last Admin: 04/23/17 11:16 Dose: 1 pkt Ropinirole HCl (Requip) 1 mg PO AMHS [facility] Last Admin: 04/23/17 21:30 Dose: 1 mg Tamsulosin HCl (Flomax) 0.4 mg PO DAILY [facility] Last Admin: 04/23/17 10:12 Dose: 0.4 mg - Labs Labs: 04/24/17 07:00 04/24/17 07:00 PT 12.5 SECONDS (9.4-12.5) 04/09/17 15:35 INR 1.09 (0.93-1.08) H 04/09/17 15:35 APTT 32.7 Seconds (25.1-36.5) 04/09/17 15:35 - Constitutional Appears: Chronically Ill - Head Exam Head Exam: NORMAL INSPECTION - Respiratory Exam Respiratory Exam: Decreased Breath Sounds - Cardiovascular Exam Cardiovascular Exam: +S1, +S2 - GI/Abdominal Exam GI & Abdominal Exam: Soft. absent: Tenderness Assessment and Plan - Assessment and Plan (Free Text) Plan: Assessment sepsis from C. glabrata fungemia SMA syndrome S/P gastrojejunostomy HTN dyslipidemia CVA with left sided weakness chronic back pain S/P left knee surgery Plan continue Mycamine day 4 for at least 4 weeks; recommend Ophtho exam to rule out endophthalmitis overall prognosis is poor
[2017-04-24] MEDS: Lidocaine 5% Patch TD SCH (21:58)
--- NOTE | 2017-04-24 23:59 | PN ---
DATE: 04/24/2017 REFERRING PHYSICIAN: Radha Lantigua MD. SUBJECTIVE: Patient is lying in the bed, sleepy, arousable. Night was unremarkable. Not much nasogastric tube suction today. No significant cough, no sputum production. No nausea. pain. No leg pain, leg swelling. OBJECTIVE: GENERAL: In no acute distress. VITAL SIGNS: Temperature is 98, heart rate 58, respiratory rate is 20, blood pressure 98/58, pulse ox 96% on nasal cannula. HEENT: Moist mucous membrane. Crowded airway. NECK: Supple. No JVD. LUNGS: Fair air flow with few rhonchi. HEART: S1 and S2. ABDOMEN: Soft, nontender. No organomegaly. J-tube area looks okay. Surgical incision site looks okay. EXTREMITIES: There is no edema. NEUROLOGIC: Awake, alert. Follows simple commands. MEDICATIONS: DuoNeb q. 6 hours, Flomax 0.4 mg daily, folic acid 1 mg daily, heparin 5000 units subcu q. 8 hours, Lidoderm patch to affected area, metoprolol tartrate 25 mg twice a day, micafungin mg daily, MiraLax 17 g daily, morphine 2 mg q. 3 hours, gabapentin 300 mg at bedtime, Neutra-Phos 1 pack daily, Nicoderm patch daily, oxycodone immediate release 5 mg q.4 hours p.r.n., potassium supplement, also Protonix 40 mg twice a day, Reglan 5 mg q.i.d., Remeron 15 mg at bedtime,Requip 1 mg at bedtime, Tegretol 100 mg twice a day, Tylenol p.r.n. basis, Zofran p.r.n. basis. LABORATORY DATA: Shows hemoglobin 9.2, hematocrit 30.1, WBC 12.8, platelet count is 588. Sodium 138, potassium 3.9, chloride 103, bicarbonate 25, BUN 21, creatinine 0.4, glucose 91, calcium 8.1, phosphorus 1.9, magnesium 2.4. AST is 30, ALT 21, alkaline phosphatase is 133, albumin is 2.8. IMPRESSION AND PLAN: Multi-lobe infiltrate, which is improving, secondary to aspiration pneumonia. Has superior mesenteric artery syndrome, status post gastrojejunostomy, also has a J-tube placement. Still has a nasogastric tube, but the output is much decreased. Keep head elevated at 45 degree, bronchodilator, antibiotics. Continue Reglan. Out of bed to chair, start therapy. Consider discontinuing nasogastric tube. Thank you and will follow with you. Velvet Castillo MD
[2017-04-25] MEDS: Morphine 2 mg/ml ISec IVP PRN ×7 (01:17→21:27)
[2017-04-25] MEDS: Acetaminophen 650mg/20.3ml solution UD PO SCH ×4 (01:45→21:29)
[2017-04-25] MEDS: Albuterol-Ipratrop 3 mg / 0.5 (3 ml) UD IH SCH ×4 (04:44→20:59)
[2017-04-25] MEDS: Metoclopramide 5 mg/5 ml Oral Sol PO SCH ×4 (06:11→21:44)
[2017-04-25] MEDS: Pantoprazole 40 mg Susp UD PEG SCH ×2 (06:39→17:08)
[2017-04-25 06:47] LABS: BASO # 0.01 K/mm3 (0.0-2.0); BASO % 0.1 % (0.0-3.0); EOS # 0.5 (0.0-0.7); EOS % 4.8 % (1.5-5.0); GRAN # 5.88 (1.4-6.5); GRAN % 56.7 % (50.0-68.0); HEMOGLOBIN 9.7 g/dL (14.0-18.0); LYMPH % 29.3 % (22.0-35.0); MEAN CORPUSCULAR HEMOGLOBIN 28.8 pg (25.0-35.0); MEAN CORPUSCULAR HGB CONC 31.3 g/dl (31.0-37.0); MEAN PLATELET VOLUME 9.6 fl (7.0-11.0); MONO # 0.9 (0.1-0.6); MONO % 9.1 % (1.0-6.0); RBC 3.37 10^6/uL (3.5-6.1); RED CELL DISTRIBUTION WIDTH 17.8 % (11.5-14.5); WHITE BLOOD COUNT 10.4 10^3/ul (4.5-11.0)
[2017-04-25 07:49] LABS: ALBUMIN 3.1 g/dL (3.0-4.8); ALT/SGPT 11 U/L (7-56); AST/SGOT 58 U/L (17-59); BLOOD UREA NITROGEN 20 mg/dL (7-21); CALCIUM 8.8 mg/dL (8.4-10.5); GFR AFRICAN-AMERICAN > 60; GFR NON-AFRICAN AMERICAN > 60; MAGNESIUM 2.4 mg/dL (1.7-2.2)
--- NOTE | 2017-04-25 08:28 | PN ---
DATE: 04/24/2017 SUBJECTIVE: The patient is a 61-year-old male. The patient is seen and examined at the bedside. Still having NG tube. Bilious material is coming from the NG tube. Patient is getting feeding through the J-tube. No fever. No chills. Not in any distress. Still complaining about back pain. No headache, no dizziness. No swelling of the leg. PHYSICAL EXAMINATION: VITAL SIGNS: Temperature 97.7, pulse 101, respiratory rate 18, blood pressure 99/74, pulse oximetry 96%. HEENT: Head is normocephalic and atraumatic. Eyes: PERRLA. Extraocular muscles are intact. Conjunctivae are clear. Nose is patent. NECK: Supple. No carotid bruits. No JVD or thyromegaly. CHEST: Bilaterally symmetrical. HEART: S1 and S2 positive. LUNGS: Clear to auscultation. ABDOMEN: Soft. Bowel sounds present. No organomegaly. EXTREMITIES: No edema. No cyanosis. NEUROLOGIC: The patient is awake and alert. Moving all four extremities. No focal deficits. MEDICATIONS: DuoNeb, Tegretol, folic acid, Neurontin, heparin, micafungin, Toradol, Lidoderm, Reglan, Lopressor, Remeron, morphine, Nicoderm, Zofran, oxycodone, Protonix, MiraLax. LABORATORY DATA: White blood cells 12.8, hemoglobin 9.2, hematocrit 38.1, platelets 588. Sodium 138, potassium 3.9, BUN 21, creatinine 0.4, glucose 91. ASSESSMENT AND PLAN: Mr. 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 Continue Mycamine; today is day #4, for at least 4 weeks. Recommended for ophthalmologic examination to rule out endophthalmitis. Overall prognosis is poor. As per Dr. Quoc Lester, discussion done with Dr. Toscano - surgeon, social media campaign manager, and embedded case manager about discharge planning. Maybe, patient has to go to [facility] to complete 4 weeks of intravenous medications. Today is POD #14 of gastrojejunostomy. Continue with intravenous fluid. Continue conservative treatment for high NG tube output for 6 more days. If no improvement, we will consider alternative options. Nothing by mouth except for ice chips or lemon ice for pleasure. Repeat labs. We will follow up. Radha Lantigua MD
[2017-04-25] MEDS: Potassium Chl 40 mEq in D5-1/2 1,000 ML IV SCH (08:50)
--- NOTE | 2017-04-25 09:23 | CP.PCM.PN ---
Subjective - Date & Time of Evaluation Date of Evaluation: 04/25/17 Time of Evaluation: 09:21 - Subjective Subjective: General Surgery Note - Dr. Toscano Patient seen and examined at bedside. No acute events overnight. Patient is tolerating J-tube feedings well. Patient still wants PO intake, but has been advised against anything by mouth right now. Objective - Vital Signs/Intake and Output Vital Signs (last 24 hours): Temp Pulse Resp BP Pulse Ox 98.6 F 118 H 22 98/68 L 96 04/25/17 00:01 04/25/17 00:01 04/25/17 00:01 04/25/17 00:01 04/25/17 00:01 Intake and Output: 04/25/17 04/25/17 06:59 18:59 Intake Total 1740 Output Total 3300 Balance -1560 - Medications Medications: Current Medications Acetaminophen (Tylenol 650mg/20.3ml Solution Ud) 650 mg PO Q6H [facility] Stop: 04/27/17 00:00 Last Admin: 04/25/17 08:53 Dose: 650 mg Albuterol/Ipratropium (Duoneb 3 Mg/0.5 Mg (3 Ml) Ud) 3 ml IH [id number] [facility] Last Admin: 04/25/17 08:10 Dose: 3 ml Carbamazepine (Tegretol) 100 mg PO BID [facility] PRN Reason: Protocol Last Admin: 04/24/17 17:45 Dose: 100 mg Folic Acid (Folic Acid) 1 mg PO DAILY [facility] Last Admin: 04/24/17 11:53 Dose: 1 mg Gabapentin (Neurontin) 300 mg PO HS [facility] PRN Reason: Protocol Last Admin: 04/24/17 21:58 Dose: 300 mg Heparin Sodium (Porcine) (Heparin) 5,000 units SC Q8 [facility] PRN Reason: Protocol Last Admin: 04/25/17 06:08 Dose: 5,000 units Micafungin Sodium 100 mg/ (Sodium Chloride) 100 mls @ 100 mls/hr IV DAILY [facility] PRN Reason: Protocol Stop: 05/04/17 22:31 Last Admin: 04/24/17 12:00 Dose: 100 mls/hr Potassium Chloride/Dextrose/Sod Cl (Potassium Chl 40 Meq In D5-1/2ns) 1,000 mls @ 50 mls/hr IV .Q20H [facility] Last Admin: 04/25/17 08:50 Dose: 50 mls/hr Lidocaine (Lidoderm) 1 ea TD 2200 [facility] Last Admin: 04/24/17 21:58 Dose: Not Given Metoclopramide HCl (Reglan) 5 mg PO 0600,1130,1630,2200 [facility] Last Admin: 04/25/17 06:11 Dose: 5 mg Metoprolol Tartrate (Lopressor) 25 mg PO BID [facility] Last Admin: 04/24/17 17:41 Dose: Not Given Mirtazapine (Remeron) 15 mg PO HS [facility] Last Admin: 04/24/17 21:56 Dose: 15 mg Morphine Sulfate (Morphine) 2 mg IVP Q3H PRN PRN Reason: Pain, severe (8-10) Last Admin: 04/25/17 08:52 Dose: 2 mg Nicotine (Nicoderm Cq) 1 patch TD DAILY [facility] Last Admin: 04/24/17 11:55 Dose: 1 patch Ondansetron HCl (Zofran Inj) 4 mg IVP Q4H PRN PRN Reason: Nausea/Vomiting Last Admin: 04/16/17 20:15 Dose: 4 mg Oxycodone HCl (Oxycodone Immediate Release Tab) 5 mg PO Q4H PRN PRN Reason: Pain, moderate (4-7) Pantoprazole Sodium (Protonix Susp) 40 mg PEG 0600,1600 [facility] Last Admin: 04/25/17 06:39 Dose: 40 mg Polyethylene Glycol (Miralax) 17 gm PO DAILY [facility] Last Admin: 04/24/17 11:54 Dose: 17 gm Potassium Phos/Sodium Phos (Neutra-Phos) 1 pkt PO DAILY [facility] Last Admin: 04/24/17 10:00 Dose: 1 pkt Ropinirole HCl (Requip) 1 mg PO AMHS [facility] Last Admin: 04/24/17 21:57 Dose: 1 mg Tamsulosin HCl (Flomax) 0.4 mg PO DAILY [facility] Last Admin: 04/24/17 11:53 Dose: 0.4 mg - Labs Labs: 04/25/17 06:20 04/25/17 06:20 PT 12.5 SECONDS (9.4-12.5) 04/09/17 15:35 INR 1.09 (0.93-1.08) H 04/09/17 15:35 APTT 32.7 Seconds (25.1-36.5) 04/09/17 15:35 - Constitutional Appears: Well - Head Exam Head Exam: ATRAUMATIC, NORMAL INSPECTION, NORMOCEPHALIC - Eye Exam Eye Exam: EOMI, Normal appearance, PERRL Pupil Exam: NORMAL ACCOMODATION, PERRL - ENT Exam ENT Exam: Mucous Membranes Moist, Normal Exam - Neck Exam Neck Exam: Full ROM, Normal Inspection. absent: Lymphadenopathy - Respiratory Exam Respiratory Exam: Clear to Ausculation Bilateral, NORMAL BREATHING PATTERN - Cardiovascular Exam Cardiovascular Exam: REGULAR RHYTHM, +S1, +S2. absent: Murmur - GI/Abdominal Exam GI & Abdominal Exam: Soft, Normal Bowel Sounds. absent: Tenderness - Extremities Exam Extremities Exam: Full ROM, Normal Capillary Refill, Normal Inspection. absent : Joint Swelling, Pedal Edema - Back Exam Back Exam: NORMAL INSPECTION - Neurological Exam Neurological Exam: Alert, Awake, CN II-XII Intact, Normal Gait, Oriented x3 - Psychiatric Exam Psychiatric exam: Normal Affect, Normal Mood - Skin Skin Exam: Dry, Intact, Normal Color, Warm Assessment and Plan - Assessment and Plan (Free Text) Assessment: 61M w. SMA syndrome, s/p gastrojejunostomy, POD#15 -NGT: 3300cc/24hr bilious, keep intermittent suction, NO meds to go through NGT -WBC elevated to 12.8 from 9.8 yesterday with tachycardia. No fevers Plan: -c/w Tube feeds via J-tube, administer meds via J-tube. Follow up nutrition recommendations for modifications -continue w/IVF -continue w. conservative management for high NGT output for 5 more days, if no improvement will consider alternative options d/w GI team (surgical vs endoscopic intervention) -NPO
[2017-04-25] MEDS: Potassium & Sodium Phosphate PO SCH (11:35)
[2017-04-25] MEDS: Micafungin 100 MG in Sodium Chloride 0.9% 100 ML IV SCH (11:35)
[2017-04-25] MEDS: POLYETHYLENE GLYCOL 3350 17 GM/Dose PACKET PO SCH (11:35)
--- NOTE | 2017-04-25 18:20 | CP.PCM.PN ---
Subjective - Date & Time of Evaluation Date of Evaluation: 04/25/17 Time of Evaluation: 10:20 - Subjective Subjective: No fevers, not in distress. Objective - Vital Signs/Intake and Output Vital Signs (last 24 hours): Temp Pulse Resp BP Pulse Ox 98.6 F 118 H 22 98/68 L 96 04/25/17 00:01 04/25/17 00:01 04/25/17 00:01 04/25/17 00:01 04/25/17 00:01 Intake and Output: 04/25/17 04/25/17 06:59 18:59 Intake Total 0 Output Total 0 Balance 0 - Medications Medications: Current Medications Acetaminophen (Tylenol 650mg/20.3ml Solution Ud) 650 mg PO Q6H [facility] Stop: 04/27/17 00:00 Last Admin: 04/25/17 01:45 Dose: 650 mg Albuterol/Ipratropium (Duoneb 3 Mg/0.5 Mg (3 Ml) Ud) 3 ml IH [id number] [facility] Last Admin: 04/25/17 08:10 Dose: 3 ml Carbamazepine (Tegretol) 100 mg PO BID [facility] PRN Reason: Protocol Last Admin: 04/24/17 17:45 Dose: 100 mg Folic Acid (Folic Acid) 1 mg PO DAILY [facility] Last Admin: 04/24/17 11:53 Dose: 1 mg Gabapentin (Neurontin) 300 mg PO HS [facility] PRN Reason: Protocol Last Admin: 04/24/17 21:58 Dose: 300 mg Heparin Sodium (Porcine) (Heparin) 5,000 units SC Q8 [facility] PRN Reason: Protocol Last Admin: 04/25/17 06:08 Dose: 5,000 units Micafungin Sodium 100 mg/ (Sodium Chloride) 100 mls @ 100 mls/hr IV DAILY [facility] PRN Reason: Protocol Stop: 05/04/17 22:31 Last Admin: 04/24/17 12:00 Dose: 100 mls/hr Potassium Chloride/Dextrose/Sod Cl (Potassium Chl 40 Meq In D5-1/2ns) 1,000 mls @ 50 mls/hr IV .Q20H [facility] Last Admin: 04/23/17 22:53 Dose: Not Given Lidocaine (Lidoderm) 1 ea TD 2200 [facility] Last Admin: 04/24/17 21:58 Dose: Not Given Metoclopramide HCl (Reglan) 5 mg PO 0600,1130,1630,2200 [facility] Last Admin: 04/25/17 06:11 Dose: 5 mg Metoprolol Tartrate (Lopressor) 25 mg PO BID [facility] Last Admin: 04/24/17 17:41 Dose: Not Given Mirtazapine (Remeron) 15 mg PO HS [facility] Last Admin: 04/24/17 21:56 Dose: 15 mg Morphine Sulfate (Morphine) 2 mg IVP Q3H PRN PRN Reason: Pain, severe (8-10) Last Admin: 04/25/17 04:16 Dose: 2 mg Nicotine (Nicoderm Cq) 1 patch TD DAILY [facility] Last Admin: 04/24/17 11:55 Dose: 1 patch Ondansetron HCl (Zofran Inj) 4 mg IVP Q4H PRN PRN Reason: Nausea/Vomiting Last Admin: 04/16/17 20:15 Dose: 4 mg Oxycodone HCl (Oxycodone Immediate Release Tab) 5 mg PO Q4H PRN PRN Reason: Pain, moderate (4-7) Pantoprazole Sodium (Protonix Susp) 40 mg PEG 0600,1600 [facility] Last Admin: 04/25/17 06:39 Dose: 40 mg Polyethylene Glycol (Miralax) 17 gm PO DAILY [facility] Last Admin: 04/24/17 11:54 Dose: 17 gm Potassium Phos/Sodium Phos (Neutra-Phos) 1 pkt PO DAILY [facility] Last Admin: 04/24/17 10:00 Dose: 1 pkt Ropinirole HCl (Requip) 1 mg PO AMHS [facility] Last Admin: 04/24/17 21:57 Dose: 1 mg Tamsulosin HCl (Flomax) 0.4 mg PO DAILY [facility] Last Admin: 04/24/17 11:53 Dose: 0.4 mg - Labs Labs: 04/25/17 06:20 04/25/17 06:20 PT 12.5 SECONDS (9.4-12.5) 04/09/17 15:35 INR 1.09 (0.93-1.08) H 04/09/17 15:35 APTT 32.7 Seconds (25.1-36.5) 04/09/17 15:35 - Constitutional Appears: Cachectic, Chronically Ill - Head Exam Head Exam: NORMAL INSPECTION - Neck Exam Neck Exam: absent: Meningismus - Respiratory Exam Respiratory Exam: Decreased Breath Sounds - Cardiovascular Exam Cardiovascular Exam: +S1, +S2 - GI/Abdominal Exam GI & Abdominal Exam: Soft. absent: Tenderness Assessment and Plan - Assessment and Plan (Free Text) Plan: Assessment sepsis from C. glabrata fungemia SMA syndrome S/P gastrojejunostomy HTN dyslipidemia CVA with left sided weakness chronic back pain S/P left knee surgery Plan continue Mycamine day 5 for at least 4 weeks; recommend Ophtho exam to rule out endophthalmitis overall prognosis is poor
[2017-04-25] MEDS: Lidocaine 5% Patch TD SCH (21:27)
--- NOTE | 2017-04-25 23:28 | PN ---
DATE: 04/25/2017 PULMONARY PROGRESS NOTE REFERRING PHYSICIAN: Radha Lantigua MD SUBJECTIVE: He is lying in the bed. Son is at bedside. Night was unremarkable. Still has nasogastric tube on suction. Occasionally having ice chips, requesting for pleasure eating, if he can have apple juice sips a few times a day. Breathing is better. Cough is improved. No abdominal pain. Tolerating feeding well. No leg pain. No leg swelling. OBJECTIVE: GENERAL: In no acute distress. VITAL SIGNS: Temp is 98, heart rate is 109, respiratory rate is 20, blood pressure 90/67, pulse ox 99% on 2 L nasal cannula. HEENT: Moist mucous membranes. NECK: Supple. No JVD. LUNGS: Have a few scattered rhonchi. HEART: S1, S2. ABDOMEN: Positive bowel sounds. Midline staple line looks okay. J-tube area looks okay. EXTREMITIES: There is no edema. NEUROLOGIC: Awake, alert. Follows simple commands. MEDICATIONS: He is on DuoNeb q.6 hours, Flomax 0.4 mg daily, folic acid 1 mg daily, heparin 5000 units subcu q.8 hours, Lidoderm patch on affected area, metoprolol tartrate 25 mg twice a day, micafungin 100 mg daily, MiraLax daily, morphine sulfate 2 mg IV q.3 hours p.r.n., gabapentin 300 mg at bedtime, Neutra-Phos one pack daily, Nicoderm patch daily, oxycodone immediate release q.4 hours, Protonix 40 mg twice a day, Reglan 5 mg q.i.d., Remeron 15 mg at bedtime, Requip 1 mg a.m. and at bedtime, Tegretol 100 mg twice a day, Tylenol p.r.n,. and Zofran p.r.n. LABORATORY DATA: Shows hemoglobin 9.7, hematocrit 31.7, WBC 10.4, platelet is 588. Sodium 138, potassium 4.1, chloride 101, bicarbonate 29, BUN 20, creatinine 0.4, glucose 113, calcium is 8.8, phosphorus is 3.0, magnesium 2.4. AST 58, ALT 11, alkaline phosphatase is 107, albumin is 3.1. Repeat blood culture, there is no growth. IMPRESSION AND PLAN: Multi-lobe infiltrate secondary to aspiration and vomiting, superior mesenteric artery syndrome requiring gastrojejunostomy and jejunostomy tube placement, tolerating jejunostomy tube feeding well. Still has nasogastric tube on suction. Patient is requesting apple juice for only pleasure eating. Spoke to nursing staff, may give [id number] sip of apple juice. Has a nasogastric tube on suction, is on board. Continue Reglan, bronchodilator, antibiotics, gastric prophylaxis, sequential compression devices to lower extremity. Out of bed to chair, if possible. Start physical therapy. Followup lab in the morning. Thank you and we will follow with you. Velvet Castillo MD
--- NOTE | 2017-04-25 23:52 | PN ---
DATE: SUBJECTIVE: The patient is 61-year-old male. The patient is seen and examined on the bedside, friend was sitting on the bedside also. Tried to call the daughter, Peggy Wang, and left a message. No nausea, vomiting or diarrhea. No hematuria or hematochezia. Still having NG tube on suction. Bilious material is coming out, getting feeding with J-tube. No swelling of the leg. No fever or chills. Still complaining about back pain. PHYSICAL EXAMINATION: VITAL SIGNS: Temperature 98.6, pulse 118, respiratory rate 22, blood pressure 98/68. HEENT: Head normocephalic, atraumatic. Eyes PERRLA. Extraocular muscles intact. Conjunctivae clear. Nose patent. Mucous membrane moist. NECK: Supple. No carotid bruit. No JVD or thyromegaly. CHEST: Bilaterally symmetrical. HEART: S1 and S2 positive. LUNGS: Clear to auscultation. ABDOMEN: Soft, surgical area looks healthy, has J-tube, getting feeding with J-tube. No organomegaly. EXTREMITIES: No edema. No cyanosis. NEUROLOGICAL: The patient is awake and alert. Follows simple commands. Moving extremities. MEDICATIONS: Tylenol, DuoNeb, Tegretol, folic acid, Neurontin, heparin, micafungin, potassium, Lidoderm, metoprolol, morphine, Nicoderm, pantoprazole, Requip. LABORATORY DATA: White blood cells 10.4, hemoglobin 9.7, hematocrit 31.0, platelets 588. Sodium 138, potassium 4.1, BUN 20, creatinine 0.5, glucose 113. ASSESSMENT AND PLAN: Mr. Brandyn Wang is 61-year-old male with anemia, thrombocytosis, hyperglycemia, sepsis, fungemia from roni glabrata fungemia, superior mesenteric artery syndrome - status post gastrojejunostomy, now has J-tube placement, getting feeding with J-tube, hypertension, dyslipidemia, cerebrovascular accident with left-sided weakness, chronic back pain, history of left knee surgery. Continue Mycamine day #4 for at least 4 weeks. Requiring ophthalmologic examination by Infectious Disease. Gastrointestinal and deep venous thrombosis prophylaxes. Out of bed. Appreciated Infectious Disease's input. The patient is seen by the Surgery also. Today is postoperative day #15 of gastrojejunostomy. P.o. medicines. I am not going to NG tube, is going to J-tube. History of tachycardia. No fever. Continue conservative management for high NG tube output for 5 more days. If no improvement, we will consider alternative options. Surgical versus Endoscopic intervention. The patient is n.p.o. Repeat labs. We will follow up. Radha Lantigua MD
[2017-04-26] MEDS: Albuterol-Ipratrop 3 mg / 0.5 (3 ml) UD IH SCH ×4 (01:15→19:50)
[2017-04-26] MEDS: Morphine 2 mg/ml ISec IVP PRN ×7 (01:22→20:53)
[2017-04-26] MEDS: Potassium Chl 40 mEq in D5-1/2 1,000 ML IV SCH (04:31)
[2017-04-26] MEDS: Acetaminophen 650mg/20.3ml solution UD PO SCH ×3 (04:35→15:00)
[2017-04-26 07:26] LABS: BASO # 0.03 K/mm3 (0.0-2.0); BASO % 0.2 % (0.0-3.0); EOS # 0.5 (0.0-0.7); EOS % 3.7 % (1.5-5.0); GRAN # 8.46 (1.4-6.5); GRAN % 64.3 % (50.0-68.0); HEMOGLOBIN 10.6 g/dL (14.0-18.0); LYMPH % 22.9 % (22.0-35.0); MEAN CELL VOLUME 92.4 fl (80.0-105.0); MEAN CORPUSCULAR HEMOGLOBIN 28.8 pg (25.0-35.0); MEAN CORPUSCULAR HGB CONC 31.2 g/dl (31.0-37.0); MEAN PLATELET VOLUME 9.7 fl (7.0-11.0); MONO # 1.2 (0.1-0.6); MONO % 8.9 % (1.0-6.0); RBC 3.68 10^6/uL (3.5-6.1); RED CELL DISTRIBUTION WIDTH 17.5 % (11.5-14.5); WHITE BLOOD COUNT 13.2 10^3/ul (4.5-11.0)
[2017-04-26 07:48] LABS: ALBUMIN 3.5 g/dL (3.0-4.8); ALT/SGPT 17 U/L (7-56); AST/SGOT 43 U/L (17-59); BLOOD UREA NITROGEN 28 mg/dL (7-21); CALCIUM 9.1 mg/dL (8.4-10.5); GFR AFRICAN-AMERICAN > 60; GFR NON-AFRICAN AMERICAN > 60; MAGNESIUM 2.6 mg/dL (1.7-2.2)
[2017-04-26] MEDS: Metoclopramide 5 mg/5 ml Oral Sol PO SCH ×4 (08:15→17:52)
[2017-04-26] MEDS: Pantoprazole 40 mg Susp UD PEG SCH ×2 (08:16→17:51)
[2017-04-26] MEDS: Potassium & Sodium Phosphate PO SCH (10:18)
[2017-04-26] MEDS: POLYETHYLENE GLYCOL 3350 17 GM/Dose PACKET PO SCH (10:18)
[2017-04-26] MEDS: Micafungin 100 MG in Sodium Chloride 0.9% 100 ML IV SCH (10:22)
--- NOTE | 2017-04-26 11:29 | CP.PCM.PN ---
Subjective - Date & Time of Evaluation Date of Evaluation: 04/26/17 Time of Evaluation: 11:26 - Subjective Subjective: Surgery: Dr. Toscano Pt seen and examined. Continuing to have large volume NGT output. States that he is thirsty. No complaints of pain. Objective - Vital Signs/Intake and Output Vital Signs (last 24 hours): Temp Pulse Resp BP Pulse Ox 97.2 F L 100 H 20 101/77 99 04/26/17 07:00 04/26/17 10:19 04/26/17 07:00 04/26/17 10:19 04/26/17 07:00 Intake and Output: 04/26/17 04/26/17 06:59 18:59 Output Total 1999 Balance -1999 - Medications Medications: Current Medications Acetaminophen (Tylenol 650mg/20.3ml Solution Ud) 650 mg PO Q6H [facility] Stop: 04/27/17 00:00 Last Admin: 04/26/17 10:20 Dose: 650 mg Albuterol/Ipratropium (Duoneb 3 Mg/0.5 Mg (3 Ml) Ud) 3 ml IH [id number] [facility] Last Admin: 04/26/17 07:29 Dose: Not Given Carbamazepine (Tegretol) 100 mg PO BID [facility] PRN Reason: Protocol Last Admin: 04/26/17 10:18 Dose: 100 mg Folic Acid (Folic Acid) 1 mg PO DAILY [facility] Last Admin: 04/26/17 10:19 Dose: 1 mg Gabapentin (Neurontin) 300 mg PO HS [facility] PRN Reason: Protocol Last Admin: 04/25/17 21:28 Dose: 300 mg Heparin Sodium (Porcine) (Heparin) 5,000 units SC Q12 [facility] PRN Reason: Protocol Last Admin: 04/26/17 10:18 Dose: 5,000 units Micafungin Sodium 100 mg/ (Sodium Chloride) 100 mls @ 100 mls/hr IV DAILY [facility] PRN Reason: Protocol Stop: 05/04/17 22:31 Last Admin: 04/26/17 10:22 Dose: 100 mls/hr Potassium Chloride/Dextrose/Sod Cl (Potassium Chl 40 Meq In D5-1/2ns) 1,000 mls @ 50 mls/hr IV .Q20H [facility] Last Admin: 04/26/17 04:31 Dose: 50 mls/hr Lidocaine (Lidoderm) 1 ea TD 2200 [facility] Last Admin: 04/25/17 21:27 Dose: Not Given Metoclopramide HCl (Reglan) 5 mg PO 0600,1130,1630,2200 [facility] Last Admin: 04/26/17 08:15 Dose: 5 mg Metoprolol Tartrate (Lopressor) 25 mg PO BID [facility] Last Admin: 04/26/17 10:19 Dose: 25 mg Mirtazapine (Remeron) 15 mg PO HS [facility] Last Admin: 04/25/17 21:28 Dose: 15 mg Morphine Sulfate (Morphine) 2 mg IVP Q3H PRN PRN Reason: Pain, severe (8-10) Last Admin: 04/26/17 08:13 Dose: 2 mg Nicotine (Nicoderm Cq) 1 patch TD DAILY [facility] Last Admin: 04/26/17 10:17 Dose: 1 patch Ondansetron HCl (Zofran Inj) 4 mg IVP Q4H PRN PRN Reason: Nausea/Vomiting Last Admin: 04/16/17 20:15 Dose: 4 mg Oxycodone HCl (Oxycodone Immediate Release Tab) 5 mg PO Q4H PRN PRN Reason: Pain, moderate (4-7) Pantoprazole Sodium (Protonix Susp) 40 mg PEG 0600,1600 [facility] Last Admin: 04/26/17 08:16 Dose: 40 mg Polyethylene Glycol (Miralax) 17 gm PO DAILY [facility] Last Admin: 04/26/17 10:18 Dose: 17 gm Potassium Phos/Sodium Phos (Neutra-Phos) 1 pkt PO DAILY [facility] Last Admin: 04/26/17 10:18 Dose: 1 pkt Ropinirole HCl (Requip) 1 mg PO AMHS [facility] Last Admin: 04/26/17 10:20 Dose: 1 mg Tamsulosin HCl (Flomax) 0.4 mg PO DAILY [facility] Last Admin: 04/26/17 10:18 Dose: 0.4 mg - Labs Labs: 04/26/17 07:00 04/26/17 07:00 PT 12.5 SECONDS (9.4-12.5) 04/09/17 15:35 INR 1.09 (0.93-1.08) H 04/09/17 15:35 APTT 32.7 Seconds (25.1-36.5) 04/09/17 15:35 - Constitutional Appears: Non-toxic, No Acute Distress, Cachectic, Chronically Ill - Head Exam Head Exam: ATRAUMATIC, NORMOCEPHALIC - Eye Exam Eye Exam: EOMI - ENT Exam ENT Exam: Mucous Membranes Moist, Normal External Ear Exam - Respiratory Exam Respiratory Exam: NORMAL BREATHING PATTERN. absent: Respiratory Distress - GI/Abdominal Exam GI & Abdominal Exam: Soft. absent: Distended, Firm, Guarding, Rigid, Tenderness , Rebound Additional comments: midline incision C/D/I w. antionette in place, J-tube in place. - Extremities Exam Extremities Exam: absent: Calf Tenderness, Pedal Edema - Neurological Exam Neurological Exam: Alert, Awake, Oriented x3 Assessment and Plan - Assessment and Plan (Free Text) Assessment: 61M w. SMA syndrome s/p gastrojejunostomy POD#16 -NGT: 2L/24hr bilious, keep to intermittent suction -continue to replace NGT output w. IVF -c/w tube feeds -encourage OOB -If NGT output does not resolve w. conservative management will consider surgical vs. endoscopic intervention -d/w attending Concepcion PGY3
[2017-04-26] MEDS ORDERED: Sodium Chloride 0.9% 500 ML IV STA (12:00)
--- NOTE | 2017-04-26 12:24 | CP.PCM.PN ---
Subjective - Date & Time of Evaluation Date of Evaluation: 04/26/17 Time of Evaluation: 11:50 - Subjective Subjective: Feels weak, no fevers, no diarrhea. Objective - Vital Signs/Intake and Output Vital Signs (last 24 hours): Temp Pulse Resp BP Pulse Ox 97.2 F L 115 H 20 101/77 99 04/26/17 07:00 04/26/17 07:00 04/26/17 07:00 04/26/17 07:00 04/26/17 07:00 Intake and Output: 04/26/17 04/26/17 06:59 18:59 Output Total 1999 Balance -1999 - Medications Medications: Current Medications Acetaminophen (Tylenol 650mg/20.3ml Solution Ud) 650 mg PO Q6H [facility] Stop: 04/27/17 00:00 Last Admin: 04/26/17 04:35 Dose: Not Given Albuterol/Ipratropium (Duoneb 3 Mg/0.5 Mg (3 Ml) Ud) 3 ml IH [id number] [facility] Last Admin: 04/26/17 07:29 Dose: Not Given Carbamazepine (Tegretol) 100 mg PO BID [facility] PRN Reason: Protocol Last Admin: 04/25/17 17:07 Dose: 100 mg Folic Acid (Folic Acid) 1 mg PO DAILY [facility] Last Admin: 04/25/17 11:33 Dose: 1 mg Gabapentin (Neurontin) 300 mg PO HS [facility] PRN Reason: Protocol Last Admin: 04/25/17 21:28 Dose: 300 mg Heparin Sodium (Porcine) (Heparin) 5,000 units SC Q12 [facility] PRN Reason: Protocol Micafungin Sodium 100 mg/ (Sodium Chloride) 100 mls @ 100 mls/hr IV DAILY [facility] PRN Reason: Protocol Stop: 05/04/17 22:31 Last Admin: 04/25/17 11:35 Dose: 100 mls/hr Potassium Chloride/Dextrose/Sod Cl (Potassium Chl 40 Meq In D5-1/2ns) 1,000 mls @ 50 mls/hr IV .Q20H [facility] Last Admin: 04/26/17 04:31 Dose: 50 mls/hr Lidocaine (Lidoderm) 1 ea TD 2200 [facility] Last Admin: 04/25/17 21:27 Dose: Not Given Metoclopramide HCl (Reglan) 5 mg PO 0600,1130,1630,2200 [facility] Last Admin: 04/26/17 08:15 Dose: 5 mg Metoprolol Tartrate (Lopressor) 25 mg PO BID [facility] Last Admin: 04/25/17 17:09 Dose: Not Given Mirtazapine (Remeron) 15 mg PO HS [facility] Last Admin: 04/25/17 21:28 Dose: 15 mg Morphine Sulfate (Morphine) 2 mg IVP Q3H PRN PRN Reason: Pain, severe (8-10) Last Admin: 04/26/17 08:13 Dose: 2 mg Nicotine (Nicoderm Cq) 1 patch TD DAILY [facility] Last Admin: 04/25/17 11:35 Dose: 1 patch Ondansetron HCl (Zofran Inj) 4 mg IVP Q4H PRN PRN Reason: Nausea/Vomiting Last Admin: 04/16/17 20:15 Dose: 4 mg Oxycodone HCl (Oxycodone Immediate Release Tab) 5 mg PO Q4H PRN PRN Reason: Pain, moderate (4-7) Pantoprazole Sodium (Protonix Susp) 40 mg PEG 0600,1600 [facility] Last Admin: 04/26/17 08:16 Dose: 40 mg Polyethylene Glycol (Miralax) 17 gm PO DAILY [facility] Last Admin: 04/25/17 11:35 Dose: 17 gm Potassium Phos/Sodium Phos (Neutra-Phos) 1 pkt PO DAILY [facility] Last Admin: 04/25/17 11:35 Dose: 1 pkt Ropinirole HCl (Requip) 1 mg PO AMHS [facility] Last Admin: 04/25/17 21:29 Dose: 1 mg Tamsulosin HCl (Flomax) 0.4 mg PO DAILY [facility] Last Admin: 04/25/17 11:35 Dose: 0.4 mg - Labs Labs: 04/26/17 07:00 04/26/17 07:00 PT 12.5 SECONDS (9.4-12.5) 04/09/17 15:35 INR 1.09 (0.93-1.08) H 04/09/17 15:35 APTT 32.7 Seconds (25.1-36.5) 04/09/17 15:35 - Constitutional Appears: Cachectic, Chronically Ill - Head Exam Head Exam: NORMAL INSPECTION - Neck Exam Neck Exam: absent: Meningismus - Respiratory Exam Respiratory Exam: Decreased Breath Sounds - Cardiovascular Exam Cardiovascular Exam: +S1, +S2 - GI/Abdominal Exam GI & Abdominal Exam: Soft. 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
--- NOTE | 2017-04-26 16:29 | CP.PCM.CON ---
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 Pt denies eye pain and change in vision. Past Patient History - Infectious Disease Hx of Infectious Diseases: None - Tetanus Immunizations Tetanus Immunization: Unknown - Past Social History Smoking Status: Heavy Smoker > 10 Cigarettes Daily Alcohol: None Drugs: Denies Home Situation {Lives}: With Family - CARDIAC Hx Hypertension: Yes - PULMONARY Hx Respiratory Disorders: No - NEUROLOGICAL HX Cerebrovascular Accident: Yes (L side residual) - HEENT Hx HEENT Problems: No - RENAL Hx Chronic Kidney Disease: No - ENDOCRINE/METABOLIC Hx Endocrine Disorders: No - HEMATOLOGICAL/ONCOLOGICAL Hx Cancer: No - INTEGUMENTARY Hx Dermatological Problems: No Other/Comment: multipleburn areas - MUSCULOSKELETAL/RHEUMATOLOGICAL Hx Back Pain: Yes Hx Unsteady Gait: Yes Other/Comment: Restless leg syndrome - GASTROINTESTINAL Hx Gastroesophageal Reflux: Yes - GENITOURINARY/GYNECOLOGICAL Hx Prostate Problems: Yes - PSYCHIATRIC Hx Substance Use: No - SURGICAL HISTORY Hx Surgeries: Yes - ANESTHESIA Hx Anesthesia Reactions: No Hx Malignant Hyperthermia: No Meds Allergies/Adverse Reactions: Allergies Allergy/AdvReac Type Severity Reaction Status Date / Time Sulfa (Sulfonamide Allergy RASH Verified 01/18/17 14:50 Antibiotics) - Medications Medications: Current Medications Acetaminophen (Tylenol 650mg/20.3ml Solution Ud) 650 mg PO Q6H [facility] Stop: 04/27/17 00:00 Last Admin: 04/26/17 15:00 Dose: Not Given Albuterol/Ipratropium (Duoneb 3 Mg/0.5 Mg (3 Ml) Ud) 3 ml IH [id number] [facility] Last Admin: 04/26/17 13:19 Dose: Not Given Carbamazepine (Tegretol) 100 mg PO BID [facility] PRN Reason: Protocol Last Admin: 04/26/17 10:18 Dose: 100 mg Folic Acid (Folic Acid) 1 mg PO DAILY [facility] Last Admin: 04/26/17 10:19 Dose: 1 mg Gabapentin (Neurontin) 300 mg PO HS [facility] PRN Reason: Protocol Last Admin: 04/25/17 21:28 Dose: 300 mg Heparin Sodium (Porcine) (Heparin) 5,000 units SC Q12 [facility] PRN Reason: Protocol Last Admin: 04/26/17 10:18 Dose: 5,000 units Micafungin Sodium 100 mg/ (Sodium Chloride) 100 mls @ 100 mls/hr IV DAILY [facility] PRN Reason: Protocol Stop: 05/04/17 22:31 Last Admin: 04/26/17 10:22 Dose: 100 mls/hr Potassium Chloride/Dextrose/Sod Cl (Potassium Chl 40 Meq In D5-1/2ns) 1,000 mls @ 50 mls/hr IV .Q20H [facility] Last Admin: 04/26/17 04:31 Dose: 50 mls/hr Lidocaine (Lidoderm) 1 ea TD 2200 [facility] Last Admin: 04/25/17 21:27 Dose: Not Given Metoclopramide HCl (Reglan) 5 mg PO 0600,1130,1630,2200 [facility] Last Admin: 04/26/17 13:05 Dose: 5 mg Metoprolol Tartrate (Lopressor) 25 mg PO BID [facility] Last Admin: 04/26/17 10:19 Dose: 25 mg Mirtazapine (Remeron) 15 mg PO HS [facility] Last Admin: 04/25/17 21:28 Dose: 15 mg Morphine Sulfate (Morphine) 2 mg IVP Q3H PRN PRN Reason: Pain, severe (8-10) Last Admin: 04/26/17 14:27 Dose: 2 mg Nicotine (Nicoderm Cq) 1 patch TD DAILY [facility] Last Admin: 04/26/17 10:17 Dose: 1 patch Ondansetron HCl (Zofran Inj) 4 mg IVP Q4H PRN PRN Reason: Nausea/Vomiting Last Admin: 04/16/17 20:15 Dose: 4 mg Oxycodone HCl (Oxycodone Immediate Release Tab) 5 mg PO Q4H PRN PRN Reason: Pain, moderate (4-7) Pantoprazole Sodium (Protonix Susp) 40 mg PEG 0600,1600 [facility] Last Admin: 04/26/17 08:16 Dose: 40 mg Polyethylene Glycol (Miralax) 17 gm PO DAILY [facility] Last Admin: 04/26/17 10:18 Dose: 17 gm Potassium Phos/Sodium Phos (Neutra-Phos) 1 pkt PO DAILY [facility] Last Admin: 02/21/18 10:18 Dose: 1 pkt Ropinirole HCl (Requip) 1 mg PO AMHS [facility] Last Admin: 04/26/17 10:20 Dose: 1 mg Tamsulosin HCl (Flomax) 0.4 mg PO DAILY [facility] Last Admin: 04/26/17 10:18 Dose: 0.4 mg Physical Exam - Eye Exam Eye Exam: EOMI, Normal appearance, PERRL Pupil Exam: PERRL Additional comments: Va 20/30 OU Conj W/Q OU K clear OU diminished tear film OU AC D/Q OU 1+cataracts OU no vitritis Results - Vital Signs Recent Vital Signs: Last Vital Signs Temp 97.2 F L 04/26/17 07:00 Pulse 100 H 04/26/17 10:19 Resp 20 04/26/17 07:00 BP 101/77 04/26/17 10:19 Pulse Ox 99 04/26/17 07:00 - Labs Result Diagrams: 04/26/17 07:00 04/26/17 07:00 Labs: Laboratory Results - last 24 hr 04/26/17 04/26/17 07:00 07:00 WBC 13.2 H D RBC 3.68 Hgb 10.6 L Hct 34.0 L MCV 92.4 MCH 28.8 MCHC 31.2 RDW 17.5 H Plt Count 681 H MPV 9.7 Gran % 64.3 Lymph % (Auto) 22.9 Ferry % (Auto) 8.9 H Eos % (Auto) 3.7 Baso % (Auto) 0.2 Gran # 8.46 H Lymph # (Auto) 3.0 Ferry # (Auto) 1.2 H Eos # (Auto) 0.5 Baso # (Auto) 0.03 Sodium 136 Potassium 4.6 Chloride 100 Carbon Dioxide 25 Anion Gap 15 BUN 28 H Creatinine 0.4 L Est GFR ( Amer) > 60 Est GFR (Non-Af Amer) > 60 Random Glucose 108 Calcium 9.1 Phosphorus 4.4 Magnesium 2.6 H Total Bilirubin 0.3 AST 43 ALT 17 Alkaline Phosphatase 130 H D Total Protein 6.9 Albumin 3.5 Globulin 3.4 Albumin/Globulin Ratio 1.0 L Assessment & Plan (1) Dry eye syndrome of both eyes Assessment and Plan: preservative-free artificial tears both eyes 3 times a day Status: Acute Comment: No signs of endophthalmitis OU (2) Cataracts, bilateral Assessment and Plan: chronic, no intervention indicated Status: Acute
--- NOTE | 2017-04-26 18:17 | CP.PCM.PN ---
<lCaudia Mccallum - Last Filed: 04/26/17 18:14> Subjective - Date & Time of Evaluation Date of Evaluation: 04/26/17 Time of Evaluation: 10:45 - Subjective Subjective: Chief Complaint: chronic low back 61 yr male w/ hstory of CVA L side deficits, multiple lou, restless leg syndrome, chronic back pain, & L knee surgery. [place] [facility] [place]. Pt was taking percocet at home for chronic back pain and began to feel abdominal pain relieved by self-induced emesis. On 04/10 pt was diagnosed w. super mesenteric artery syndrome s/p gastrojejunostomy on . Pt's daughter Peggy is requesting a second surgical opinion with Dr. Caldwell. Currently, pt is being treated for C. glabrata fungemia. Today, pt is seen in bed without any distress. Reports chronic back pain. Denies any fever, chills, chest pain, shortness of breath, diarrhea, constipation, or urinary problems. Objective - Vital Signs/Intake and Output Vital Signs (last 24 hours): Temp Pulse Resp BP Pulse Ox 98.2 F 106 H 18 95/68 L 98 04/26/17 16:00 04/26/17 17:59 04/26/17 16:00 04/26/17 17:59 04/26/17 16:00 Intake and Output: 04/26/17 04/26/17 06:59 18:59 Output Total 1999 Balance -2000 - Medications Medications: Current Medications Acetaminophen (Tylenol 650mg/20.3ml Solution Ud) 650 mg PO Q6H [facility] Stop: 04/27/17 00:00 Last Admin: 04/26/17 15:00 Dose: Not Given Albuterol/Ipratropium (Duoneb 3 Mg/0.5 Mg (3 Ml) Ud) 3 ml IH [id number] [facility] Last Admin: 04/26/17 13:19 Dose: Not Given Carbamazepine (Tegretol) 100 mg PO BID [facility] PRN Reason: Protocol Last Admin: 04/26/17 10:18 Dose: 100 mg Folic Acid (Folic Acid) 1 mg PO DAILY [facility] Last Admin: 04/26/17 10:19 Dose: 1 mg Gabapentin (Neurontin) 300 mg PO HS [facility] PRN Reason: Protocol Last Admin: 04/25/17 21:28 Dose: 300 mg Heparin Sodium (Porcine) (Heparin) 5,000 units SC Q12 [facility] PRN Reason: Protocol Last Admin: 04/26/17 10:18 Dose: 5,000 units Micafungin Sodium 100 mg/ (Sodium Chloride) 100 mls @ 100 mls/hr IV DAILY [facility] PRN Reason: Protocol Stop: 05/04/17 22:31 Last Admin: 04/26/17 10:22 Dose: 100 mls/hr Potassium Chloride/Dextrose/Sod Cl (Potassium Chl 40 Meq In D5-1/2ns) 1,000 mls @ 50 mls/hr IV .Q20H [facility] Last Admin: 04/26/17 04:31 Dose: 50 mls/hr Lidocaine (Lidoderm) 1 ea TD 2200 [facility] Last Admin: 04/25/17 21:27 Dose: Not Given Metoclopramide HCl (Reglan) 5 mg PO 0600,1130,1630,2200 [facility] Last Admin: 04/26/17 17:52 Dose: 5 mg Metoprolol Tartrate (Lopressor) 25 mg PO BID [facility] Last Admin: 04/26/17 17:59 Dose: 25 mg Mirtazapine (Remeron) 15 mg PO HS [facility] Last Admin: 04/25/17 21:28 Dose: 15 mg Morphine Sulfate (Morphine) 2 mg IVP Q3H PRN PRN Reason: Pain, severe (8-10) Last Admin: 04/26/17 17:50 Dose: 2 mg Nicotine (Nicoderm Cq) 1 patch TD DAILY [facility] Last Admin: 04/26/17 10:17 Dose: 1 patch Ondansetron HCl (Zofran Inj) 4 mg IVP Q4H PRN PRN Reason: Nausea/Vomiting Last Admin: 04/16/17 20:15 Dose: 4 mg Oxycodone HCl (Oxycodone Immediate Release Tab) 5 mg PO Q4H PRN PRN Reason: Pain, moderate (4-7) Pantoprazole Sodium (Protonix Susp) 40 mg PEG 0600,1600 [facility] Last Admin: 04/26/17 17:51 Dose: 40 mg Polyethylene Glycol (Miralax) 17 gm PO DAILY [facility] Last Admin: 04/26/17 10:18 Dose: 17 gm Potassium Phos/Sodium Phos (Neutra-Phos) 1 pkt PO DAILY [facility] Last Admin: 04/26/17 10:18 Dose: 1 pkt Ropinirole HCl (Requip) 1 mg PO AMHS [facility] Last Admin: 04/26/17 10:20 Dose: 1 mg Tamsulosin HCl (Flomax) 0.4 mg PO DAILY [facility] Last Admin: 04/26/17 10:18 Dose: 0.4 mg - Labs Labs: 04/26/17 07:00 04/26/17 07:00 PT 12.5 SECONDS (9.4-12.5) 04/09/17 15:35 INR 1.09 (0.93-1.08) H 04/09/17 15:35 APTT 32.7 Seconds (25.1-36.5) 04/09/17 15:35 - Constitutional Appears: Older Than Stated Age, Cachectic, Chronically Ill - Head Exam Head Exam: ATRAUMATIC, NORMAL INSPECTION, NORMOCEPHALIC - Eye Exam Eye Exam: Normal appearance Additional comments: wearing corrective glasses - ENT Exam Additional comments: L nare NGT, c/d/i - Neck Exam Neck Exam: Full ROM, Normal Inspection. absent: Lymphadenopathy - Respiratory Exam Respiratory Exam: Clear to Ausculation Bilateral, NORMAL BREATHING PATTERN - Cardiovascular Exam Cardiovascular Exam: REGULAR RHYTHM, +S1, +S2. absent: Murmur - GI/Abdominal Exam GI & Abdominal Exam: Soft, Hypoactive Bowel Sounds Additional comments: peg site C/D/I. abdominal antionette [employer], C/D/I - Extremities Exam Additional comments: L arm contracture / L lower extremity weakness. R upper arm PICC - Neurological Exam Neurological Exam: Alert, Awake, Oriented x3 - Psychiatric Exam Additional comments: Depressed, Flat Affect - Skin Skin Exam: Dry, Pallor Additional comments: Dry, Pallor, Warm Assessment and Plan (1) Nausea and vomiting Status: Acute (2) Hiccups Status: Acute (3) SMAS (superior mesenteric artery syndrome) Status: Acute (4) Dehydration Status: Acute (5) Chronic back pain Status: Acute (6) Anemia Status: Acute (7) Abdominal pain Status: Acute (8) Failure to thrive in adult Status: Acute (9) Partial small bowel obstruction Status: Ruled-out - Assessment and Plan (Free Text) Plan: IV mycamine for 4 weeks. Peg tube in place. L nare NGT in place. Seizure precautions. VTE/GI prophlyaxis. Nicotine patch ordered. PT/OT on board. Diagnosis: SMA (ruled out opioid induced constipation & SBO). PT/OT onboard. Pain management: gabapentin, morphine IV, lidocaine, oxycodone 5mg tab q 4h Consults: GI - Dr. Ozuna Surgery - Dr. Toscano Neuro - Dr. Suni Landrum - Dr. Diaz Cardio - Dr. Bey Psych - Dr. Conn ID - Dr. Mckenna Reviewed: CT abd/pelvis = contrast seen throughout small bowel & colon, no evidence of obstruction, small amount of extra luminar air in the pelvis which is no longer seen Xray SB = NEGATIVE obstruction ECHO = EF 55-60%, ECG = Sinus tachy, w/ PAC CT angio = small droplets of free air in the anterior pelvis, suspicious for bowel perforation, small infrarenal abd aortic aneurysm, no evidence of SMA, occlusion, stenosis CT abd/pelvis = WNL <Radha Lantigua - Last Filed: 04/27/17 10:07> Subjective - Subjective Subjective: 61 yr male w/ history chronic OH with cardiac stents x 7, HTN, Hyperlipidemia, DM II, gastroparesis, anemia, L eye blindness, degenerative stenosis at C5- C6-C7, R kidney complex cysts/mass & Renal insufficiency. Pt was recently discharge [facility] (04/17) and is now readmitted (04/24) for diarrhea. Today, pt is c/o dizziness and weakness. Denies any shortness of breath, chest pain, headache, fever, chills, diarrhea, constipation, paraesthesias, or urinary changes.pt is seen and examined at bed side . 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 daughter want 2nd surgical openion , will f/u agreed all above Objective - Vital Signs/Intake and Output Vital Signs (last 24 hours): Temp Pulse Resp BP Pulse Ox 98.0 F 66 16 100/52 L 96 04/27/17 06:00 04/27/17 06:00 04/27/17 06:00 04/27/17 06:00 04/27/17 06:00 Intake and Output: 04/27/17 04/27/17 06:59 18:59 Intake Total 2040 Output Total 3900 Balance -1860 - Medications Medications: Current Medications Albuterol/Ipratropium (Duoneb 3 Mg/0.5 Mg (3 Ml) Ud) 3 ml IH [id number] [facility] Last Admin: 04/27/17 07:25 Dose: Not Given Carbamazepine (Tegretol) 100 mg PO BID [facility] PRN Reason: Protocol Last Admin: 04/26/17 19:00 Dose: 100 mg Folic Acid (Folic Acid) 1 mg PO DAILY [facility] Last Admin: 04/26/17 10:19 Dose: 1 mg Gabapentin (Neurontin) 300 mg PO HS [facility] PRN Reason: Protocol Last Admin: 04/26/17 21:58 Dose: 300 mg Heparin Sodium (Porcine) (Heparin) 5,000 units SC Q12 [facility] PRN Reason: Protocol Last Admin: 04/26/17 21:56 Dose: 5,000 units Potassium Chloride/Dextrose/Sod Cl (Potassium Chl 40 Meq In D5-1/2ns) 1,000 mls @ 50 mls/hr IV .Q20H [facility] Last Admin: 04/27/17 04:12 Dose: 50 mls/hr Lidocaine (Lidoderm) 1 ea TD 2200 [facility] Last Admin: 04/26/17 21:58 Dose: Not Given Metoclopramide HCl (Reglan) 5 mg PO 0600,1130,1630,2200 [facility] Last Admin: 04/27/17 05:38 Dose: 5 mg Metoprolol Tartrate (Lopressor) 25 mg PO BID [facility] Last Admin: 04/26/17 17:59 Dose: 25 mg Mirtazapine (Remeron) 15 mg PO [facility] Last Admin: 04/27/17 00:45 Dose: 15 mg Morphine Sulfate (Morphine) 2 mg IVP Q3H PRN PRN Reason: Pain, severe (8-10) Last Admin: 04/27/17 09:19 Dose: 2 mg Nicotine (Nicoderm Cq) 1 patch TD DAILY [facility] Last Admin: 04/26/17 10:17 Dose: 1 patch Ondansetron HCl (Zofran Inj) 4 mg IVP Q4H PRN PRN Reason: Nausea/Vomiting Last Admin: 04/16/17 20:15 Dose: 4 mg Oxycodone HCl (Oxycodone Immediate Release Tab) 5 mg PO Q4H PRN PRN Reason: Pain, moderate (4-7) Pantoprazole Sodium (Protonix Susp) 40 mg PEG 0600,1600 [facility] Last Admin: 04/27/17 05:38 Dose: 40 mg Polyethylene Glycol (Miralax) 17 gm PO DAILY [facility] Last Admin: 04/26/17 10:18 Dose: 17 gm Potassium Phos/Sodium Phos (Neutra-Phos) 1 pkt PO DAILY [facility] Last Admin: 04/26/17 10:18 Dose: 1 pkt Ropinirole HCl (Requip) 1 mg PO AMHS [facility] Last Admin: 04/26/17 21:59 Dose: 1 mg Tamsulosin HCl (Flomax) 0.4 mg PO DAILY [facility] Last Admin: 04/26/17 10:18 Dose: 0.4 mg - Labs Labs: 04/26/17 07:00 04/26/17 07:00 PT 12.5 SECONDS (9.4-12.5) 04/09/17 15:35 INR 1.09 (0.93-1.08) H 04/09/17 15:35 APTT 32.7 Seconds (25.1-36.5) 04/09/17 15:35
--- NOTE | 2017-04-26 20:47 | PN ---
DATE: 04/26/2017 PULMONARY PROGRESS NOTE REFERRING PHYSICIAN: Radha Lantigua MD SUBJECTIVE: He is lying in the bed at 45 degrees, has a nasogastric tube on suction draining fluid whatever he is drinking. Cough and shortness of breath better. No abdominal pain. Tolerating J-tube feeding well. No bowel movement. No leg pain or leg swelling. OBJECTIVE: GENERAL: In no acute distress. VITAL SIGNS: Temperature is 98, heart rate is 100, respiratory rate is 20, blood pressure is 101/77, pulse ox 99% on nasal cannula. HEENT: Moist mucous membrane. No ulcer. NECK: Supple. No JVD. LUNGS: A few crackles. HEART: S1 and S2. ABDOMEN: Soft. Incision site looks okay. J-tube area looks okay. EXTREMITIES: There is no edema. NEUROLOGIC: Awake, alert, follows simple commands. MEDICATIONS: He is on DuoNeb q. 6 hours, Flomax 0.4 mg daily, folic acid 1 mg daily, heparin 5000 units subq q. 12 hours, Lidoderm patch to the affected area, metoprolol tartrate 25 mg twice a day, micafungin 100 mg daily, MiraLax 17 g daily, morphine 2 mg IV q. 3 hours p.r.n., gabapentin 300 mg at bedtime, Neutra-Phos one pack daily, Nicoderm patch daily, oxycodone immediate release 5 mg q. 4 hours p.r.n., potassium supplement, Protonix 40 mg twice a day, Reglan 5 mg q.i.d., Remeron 15 mg at bedtime, Requip 1 mg in the a.m. and at bedtime, Tegretol 100 mg twice a day, Tylenol p.r.n., Zofran on p.r.n. basis. LABORATORY DATA: Shows hemoglobin 10.6, hematocrit 34.7, WBC 13.2, and platelet count is 681. Sodium 136, potassium 4.6, chloride 100, bicarbonate 25. BUN 28, creatinine 0.4. Glucose 108. Calcium is 9.1, phosphorus 4.4, magnesium is 2.6. AST 43, ALT 17, alkaline phosphatase is 130, albumin is 3.5. IMPRESSION AND PLAN: Superior mesenteric artery syndrome, requiring gastrojejunostomy which failed basically does not work, finally requiring jejunostomy tube and tolerating feeding well through that, has a nasogastric tube. The patient is getting ice chips, but suctioning it out through the nasogastric tube suction, status post aspiration pneumonia, malnourished. Pulmonary point of view, doing okay. I spoke to nursing staff, requested to get him out of bed to reclining chair. Continue Reglan. No bowel movement for 2 days. May give Dulcolax suppository, gastric prophylaxis, antibiotics, being followed by Surgery and Gastroenterology. Thank you and we will follow with you. Velvet Castillo MD
[2017-04-26] MEDS: Lidocaine 5% Patch TD SCH (21:58)
[2017-04-27] MEDS: Morphine 2 mg/ml ISec IVP PRN ×9 (00:02→23:44)
[2017-04-27] MEDS: Metoclopramide 5 mg/5 ml Oral Sol PO SCH ×5 (00:34→21:52)
[2017-04-27] MEDS: Albuterol-Ipratrop 3 mg / 0.5 (3 ml) UD IH SCH ×3 (01:31→20:04)
[2017-04-27] MEDS: Potassium Chl 40 mEq in D5-1/2 1,000 ML IV SCH (04:12)
[2017-04-27] MEDS: Pantoprazole 40 mg Susp UD PEG SCH ×2 (05:38→15:00)
--- NOTE | 2017-04-27 08:06 | CP.PCM.PN ---
Subjective - Date & Time of Evaluation Date of Evaluation: 04/27/17 Time of Evaluation: 08:02 - Subjective Subjective: Surgery progress note for Dr. Toscano Patient seen and examined at bedside. Patient is doing well, states that he drank 3 pitchers of water today. NGT output is 3600 CC's. Denies nausea, vomiting, diarrhea, abdominal pain. Objective - Vital Signs/Intake and Output Vital Signs (last 24 hours): Temp Pulse Resp BP Pulse Ox 98.2 F 106 H 18 95/68 L 98 04/26/17 16:00 04/26/17 17:59 04/26/17 16:00 04/26/17 17:59 04/26/17 16:00 Intake and Output: 04/27/17 04/27/17 06:59 18:59 Intake Total 2040 Output Total 3900 Balance -1860 - Medications Medications: Current Medications Albuterol/Ipratropium (Duoneb 3 Mg/0.5 Mg (3 Ml) Ud) 3 ml IH [id number] [facility] Last Admin: 04/27/17 07:25 Dose: Not Given Carbamazepine (Tegretol) 100 mg PO BID [facility] PRN Reason: Protocol Last Admin: 04/26/17 19:00 Dose: 100 mg Folic Acid (Folic Acid) 1 mg PO DAILY [facility] Last Admin: 04/26/17 10:19 Dose: 1 mg Gabapentin (Neurontin) 300 mg PO HS [facility] PRN Reason: Protocol Last Admin: 04/26/17 21:58 Dose: 300 mg Heparin Sodium (Porcine) (Heparin) 5,000 units SC Q12 [facility] PRN Reason: Protocol Last Admin: 04/26/17 21:56 Dose: 5,000 units Potassium Chloride/Dextrose/Sod Cl (Potassium Chl 40 Meq In D5-1/2ns) 1,000 mls @ 50 mls/hr IV .Q20H [facility] Last Admin: 04/27/17 04:12 Dose: 50 mls/hr Lidocaine (Lidoderm) 1 ea TD 2200 [facility] Last Admin: 04/26/17 21:58 Dose: Not Given Metoclopramide HCl (Reglan) 5 mg PO 0600,1130,1630,2200 [facility] Last Admin: 04/27/17 05:38 Dose: 5 mg Metoprolol Tartrate (Lopressor) 25 mg PO BID [facility] Last Admin: 04/26/17 17:59 Dose: 25 mg Mirtazapine (Remeron) 15 mg PO HS [facility] Last Admin: 04/27/17 00:45 Dose: 15 mg Morphine Sulfate (Morphine) 2 mg IVP Q3H PRN PRN Reason: Pain, severe (8-10) Last Admin: 04/27/17 05:47 Dose: 2 mg Nicotine (Nicoderm Cq) 1 patch TD DAILY [facility] Last Admin: 04/26/17 10:17 Dose: 1 patch Ondansetron HCl (Zofran Inj) 4 mg IVP Q4H PRN PRN Reason: Nausea/Vomiting Last Admin: 04/16/17 20:15 Dose: 4 mg Oxycodone HCl (Oxycodone Immediate Release Tab) 5 mg PO Q4H PRN PRN Reason: Pain, moderate (4-7) Pantoprazole Sodium (Protonix Susp) 40 mg PEG 0600,1600 [facility] Last Admin: 04/27/17 05:38 Dose: 40 mg Polyethylene Glycol (Miralax) 17 gm PO DAILY [facility] Last Admin: 04/26/17 10:18 Dose: 17 gm Potassium Phos/Sodium Phos (Neutra-Phos) 1 pkt PO DAILY [facility] Last Admin: 04/26/17 10:18 Dose: 1 pkt Ropinirole HCl (Requip) 1 mg PO AMHS [facility] Last Admin: 04/26/17 21:59 Dose: 1 mg Tamsulosin HCl (Flomax) 0.4 mg PO DAILY [facility] Last Admin: 04/26/17 10:18 Dose: 0.4 mg - Labs Labs: 04/26/17 07:00 04/26/17 07:00 PT 12.5 SECONDS (9.4-12.5) 04/09/17 15:35 INR 1.09 (0.93-1.08) H 04/09/17 15:35 APTT 32.7 Seconds (25.1-36.5) 04/09/17 15:35 - Constitutional Appears: Well - Head Exam Head Exam: ATRAUMATIC, NORMAL INSPECTION, NORMOCEPHALIC - Eye Exam Eye Exam: EOMI, Normal appearance, PERRL Pupil Exam: NORMAL ACCOMODATION, PERRL - ENT Exam ENT Exam: Mucous Membranes Moist, Normal Exam - Neck Exam Neck Exam: Full ROM, Normal Inspection. absent: Lymphadenopathy - Respiratory Exam Respiratory Exam: Clear to Ausculation Bilateral, NORMAL BREATHING PATTERN - Cardiovascular Exam Cardiovascular Exam: REGULAR RHYTHM, +S1, +S2. absent: Murmur - GI/Abdominal Exam GI & Abdominal Exam: Soft, Normal Bowel Sounds. absent: Tenderness - Extremities Exam Extremities Exam: Full ROM, Normal Capillary Refill, Normal Inspection. absent : Joint Swelling, Pedal Edema - Back Exam Back Exam: NORMAL INSPECTION - Neurological Exam Neurological Exam: Alert, Awake, CN II-XII Intact, Normal Gait, Oriented x3 - Psychiatric Exam Psychiatric exam: Normal Affect, Normal Mood - Skin Skin Exam: Dry, Intact, Normal Color, Warm Assessment and Plan - Assessment and Plan (Free Text) Assessment: 61M w. SMA syndrome s/p gastrojejunostomy POD#16 - High NGT output likely 2/2 high po fluid intake - Clamp trial - check residual q4, if patient has nausea and vomiting, place NGT on low intermittent suctioning. May consider UGI series on Fri - Get patient out of bed today - C/w tube feeds - Get patient OOB - D/w attending
[2017-04-27] MEDS: Potassium & Sodium Phosphate PO SCH (11:28)
[2017-04-27] MEDS: POLYETHYLENE GLYCOL 3350 17 GM/Dose PACKET PO SCH (11:28)
--- NOTE | 2017-04-27 12:47 | CP.PCM.PN ---
Subjective - Date & Time of Evaluation Date of Evaluation: 04/27/17 Time of Evaluation: 11:50 - Subjective Subjective: No fevers, not in distress. Objective - Vital Signs/Intake and Output Vital Signs (last 24 hours): Temp Pulse Resp BP Pulse Ox 98.2 F 106 H 18 95/68 L 98 04/26/17 16:00 04/26/17 17:59 04/26/17 16:00 04/26/17 17:59 04/26/17 16:00 Intake and Output: 04/27/17 04/27/17 06:59 18:59 Intake Total 2040 Output Total 3900 Balance -1860 - Medications Medications: Current Medications Albuterol/Ipratropium (Duoneb 3 Mg/0.5 Mg (3 Ml) Ud) 3 ml IH [id number] [facility] Last Admin: 04/27/17 07:25 Dose: Not Given Carbamazepine (Tegretol) 100 mg PO BID [facility] PRN Reason: Protocol Last Admin: 04/26/17 19:00 Dose: 100 mg Folic Acid (Folic Acid) 1 mg PO DAILY [facility] Last Admin: 04/26/17 10:19 Dose: 1 mg Gabapentin (Neurontin) 300 mg PO HS [facility] PRN Reason: Protocol Last Admin: 04/26/17 21:58 Dose: 300 mg Heparin Sodium (Porcine) (Heparin) 5,000 units SC Q12 [facility] PRN Reason: Protocol Last Admin: 04/26/17 21:56 Dose: 5,000 units Potassium Chloride/Dextrose/Sod Cl (Potassium Chl 40 Meq In D5-1/2ns) 1,000 mls @ 50 mls/hr IV .Q20H [facility] Last Admin: 04/27/17 04:12 Dose: 50 mls/hr Lidocaine (Lidoderm) 1 ea TD 2200 [facility] Last Admin: 04/26/17 21:58 Dose: Not Given Metoclopramide HCl (Reglan) 5 mg PO 0600,1130,1630,2200 [facility] Last Admin: 04/27/17 05:38 Dose: 5 mg Metoprolol Tartrate (Lopressor) 25 mg PO BID [facility] Last Admin: 04/26/17 17:59 Dose: 25 mg Mirtazapine (Remeron) 15 mg PO HS [facility] Last Admin: 04/27/17 00:45 Dose: 15 mg Morphine Sulfate (Morphine) 2 mg IVP Q3H PRN PRN Reason: Pain, severe (8-10) Last Admin: 04/27/17 05:47 Dose: 2 mg Nicotine (Nicoderm Cq) 1 patch TD DAILY [facility] Last Admin: 04/26/17 10:17 Dose: 1 patch Ondansetron HCl (Zofran Inj) 4 mg IVP Q4H PRN PRN Reason: Nausea/Vomiting Last Admin: 04/16/17 20:15 Dose: 4 mg Oxycodone HCl (Oxycodone Immediate Release Tab) 5 mg PO Q4H PRN PRN Reason: Pain, moderate (4-7) Pantoprazole Sodium (Protonix Susp) 40 mg PEG 0600,1600 [facility] Last Admin: 04/27/17 05:38 Dose: 40 mg Polyethylene Glycol (Miralax) 17 gm PO DAILY [facility] Last Admin: 04/26/17 10:18 Dose: 17 gm Potassium Phos/Sodium Phos (Neutra-Phos) 1 pkt PO DAILY [facility] Last Admin: 04/26/17 10:18 Dose: 1 pkt Ropinirole HCl (Requip) 1 mg PO AMHS [facility] Last Admin: 04/26/17 21:59 Dose: 1 mg Tamsulosin HCl (Flomax) 0.4 mg PO DAILY [facility] Last Admin: 04/26/17 10:18 Dose: 0.4 mg - Labs Labs: 04/26/17 07:00 04/26/17 07:00 PT 12.5 SECONDS (9.4-12.5) 04/09/17 15:35 INR 1.09 (0.93-1.08) H 04/09/17 15:35 APTT 32.7 Seconds (25.1-36.5) 04/09/17 15:35 - Constitutional Appears: Cachectic, Chronically Ill - Head Exam Head Exam: NORMAL INSPECTION - Respiratory Exam Respiratory Exam: Decreased Breath Sounds - Cardiovascular Exam Cardiovascular Exam: +S1, +S2 - GI/Abdominal Exam GI & Abdominal Exam: Soft. 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
[2017-04-27] MEDS: Micafungin 100 MG in Sodium Chloride 0.9% 100 ML IV SCH (14:00)
[2017-04-27] MEDS: Lidocaine 5% Patch TD SCH (21:51)
[2017-04-28] MEDS: Morphine 2 mg/ml ISec IVP PRN ×5 (02:32→15:24)
[2017-04-28] MEDS: Albuterol-Ipratrop 3 mg / 0.5 (3 ml) UD IH SCH ×5 (03:05→20:32)
--- NOTE | 2017-04-28 03:07 | PN ---
DATE: PULMONARY PROGRESS NOTE REFERRING PHYSICIAN: Radha Lantigua MD SUBJECTIVE: He is lying in the bed, head at 45 degrees. His nasogastric tube was clamped, and ended up with nausea and feeling of vomiting. It was unclamped. Has a high gastric output through the nasogastric tube, tolerating J-tube feeding well. Mild cough. No shortness of breath. No leg pain or leg swelling. OBJECTIVE GENERAL: In no acute distress. VITAL SIGNS: Temperature is 98, heart rate 70, respiratory rate is 18, blood pressure 100/72, pulse ox 98% on 2 liters nasal cannula. HEENT: Moist mucous membranes. No ulcers or thrush noted. NECK: Supple. No JVD. LUNGS: Have a few scattered rhonchi. HEART: S1 and S2. ABDOMEN: Positive bowel sounds. Soft. J-tube area looks okay. EXTREMITIES: No edema. NEUROLOGIC: Awake and alert. Follows simple commands. LABORATORY DATA: ABG showed pH 7.55, pCO2 30, pO2 of 67, that was on 04/17/2017. No other lab is available since yesterday. MEDICATIONS: He is on DuoNeb q. 6 hours, 0.4 mg daily, folic acid 1 mg daily, heparin 5000 units subcutaneously q. 12 hours, lidocaine patch to the affected area, metoprolol tartrate 25 mg twice a day, Micafungin 100 mg daily, MiraLax 17 g daily, morphine 2 mg q. 3 hours p.r.n., gabapentin 300 mg at bedtime, Neutra-Phos one pack daily, Nicoderm patch daily, oxycodone immediate release 5 mg q. 4 hours p.r.n., potassium IV, Protonix 40 mg through the J-tube twice a day, Reglan 5 mg four times a day, Remeron 15 mg at bedtime, ReQuip 1 mg in the a.m. and at bedtime, Tegretol 100 mg twice a day, Zofran p.r.n. IMPRESSION AND PLAN: Superior mesenteric artery syndrome, requiring gastrojejunostomy, basically did not work, ended up with jejunostomy tube placement, tolerating the feeding well through the jejunostomy tube; still has a large gastric residual. The patient continues to drink fluid in spite of guiding him of high-risk for aspiration, if the nasogastric tube is clamped or removed, I believe may have to do a GI procedure with stent (gastroduodenal stent) if that can work. History of stroke, chronic lung disease, electrolyte imbalance. Keep head elevated at 45 degrees. Incentive spirometry. Antibiotics as per Infectious Disease. Continue Reglan for now. Gastric prophylaxis. Sequential compression devices to lower extremities. Follow up labs in the morning. Thank you and we will follow up with you. Velvet Castillo MD
[2017-04-28] MEDS: Metoclopramide 5 mg/5 ml Oral Sol PO SCH ×4 (06:16→21:31)
[2017-04-28] MEDS: Pantoprazole 40 mg Susp UD PEG SCH ×2 (06:16→18:11)
--- NOTE | 2017-04-28 07:28 | PN ---
DATE: SUBJECTIVE: The patient is a 61-year-old male. The patient seen and examined at the bedside. Looking comfortable, not big change in the status, still NG tube is sucking bile. No headache. No dizziness. The patient is not a very good historian, feeling thirsty, but no fever, no chills. PHYSICAL EXAMINATION: VITAL SIGNS: Temperature 98.2, pulse 106, respiratory rate 18, blood pressure 95/68, pulse oximetry is 98. HEENT: Head normocephalic, atraumatic. Eyes: PERRLA. Extraocular muscles intact. Conjunctivae clear. Nose patent. Mucous membrane moist. NECK: Supple. No carotid bruit. No JVD or thyromegaly. CHEST: Bilaterally symmetrical. HEART: S1 and S2 positive. LUNGS: Clear to auscultation. ABDOMEN: Soft. Bowel sounds positive. No organomegaly. EXTREMITIES: No edema. No cyanosis. NEUROLOGIC: The patient is awake and alert. Moving all 4 extremities. No focal deficits. MEDICATIONS: Tegretol, folic acid, Neurontin, heparin, Lidoderm, Reglan, Remeron, morphine, Nicoderm, Zofran, oxycodone, Miralax. LABORATORY DATA: White blood cells 13.2, hemoglobin 10.6, hematocrit 34.0, platelets 651. Sodium , potassium 4.6. BUN 28, creatinine 0.4, glucose 108. ASSESSMENT AND PLAN: Mr. Brandyn Joy is 61-year-old male with leukocytosis, anemia, thrombocytosis, renal insufficiency, had sepsis with Alyssa glabrata fungemia, superior mesenteric artery syndrome, status post gastrojejunostomy, hypertension, dyslipidemia, cerebrovascular accident with left-sided weakness, chronic back pain, status post left knee surgery. We will continue Mycamine day #7 for the last 4 weeks. Recommended ophthalmic examination to rule out endophthalmitis. Overall prognosis poor as per Infectious Disease. We called Ophthalmology consult. Waiting for the input. Appreciated Dr. Toscano and Dr. Lester's notes. As per the patient's daughter, Peggy, they want a second opinion for surgical procedure. As per Peggy, Dr. Lees's consult called. The patient is status post gastrojejunostomy postoperative day 15. Status post jejunostomy tube placement. Still high nasogastric tube output. Getting feeding with jejunostomy tube. Out of bed. Physical therapy. Radha Lantigua MD [email or web address]
[2017-04-28 08:13] LABS: HEMOGLOBIN 11.2 g/dL (14.0-18.0); MEAN CELL VOLUME 90.6 fl (80.0-105.0); MEAN CORPUSCULAR HEMOGLOBIN 29.1 pg (25.0-35.0); MEAN CORPUSCULAR HGB CONC 32.1 g/dl (31.0-37.0); MEAN PLATELET VOLUME 9.3 fl (7.0-11.0); RBC 3.85 10^6/uL (3.5-6.1); RED CELL DISTRIBUTION WIDTH 16.9 % (11.5-14.5); WHITE BLOOD COUNT 21.6 10^3/ul (4.5-11.0)
--- NOTE | 2017-04-28 08:23 | CP.PCM.PN ---
Subjective - Date & Time of Evaluation Date of Evaluation: 04/28/17 Time of Evaluation: 08:19 - Subjective Subjective: Surgery progress note for Dr. Toscano Patient seen and examined at bedside. Patient is doing well, but is still thirsty. He is tolerating his J tube feedings well. Patient doing well otherwise. Objective - Vital Signs/Intake and Output Vital Signs (last 24 hours): Temp Pulse Resp BP Pulse Ox 98.2 F 70 18 100/72 98 04/27/17 16:00 04/27/17 18:09 04/27/17 16:00 04/27/17 18:09 04/27/17 16:00 Intake and Output: 04/28/17 04/28/17 06:59 18:59 Intake Total 1930 Output Total 2400 Balance -470 - Medications Medications: Current Medications Albuterol/Ipratropium (Duoneb 3 Mg/0.5 Mg (3 Ml) Ud) 3 ml IH [id number] [facility] Last Admin: 04/28/17 07:51 Dose: Not Given Carbamazepine (Tegretol) 100 mg PO BID [facility] PRN Reason: Protocol Last Admin: 04/27/17 18:08 Dose: 100 mg Folic Acid (Folic Acid) 1 mg PO DAILY [facility] Last Admin: 04/27/17 11:29 Dose: 1 mg Gabapentin (Neurontin) 300 mg PO HS [facility] PRN Reason: Protocol Last Admin: 04/27/17 21:51 Dose: 300 mg Heparin Sodium (Porcine) (Heparin) 5,000 units SC Q12 [facility] PRN Reason: Protocol Last Admin: 04/27/17 21:51 Dose: 5,000 units Potassium Chloride/Dextrose/Sod Cl (Potassium Chl 40 Meq In D5-1/2ns) 1,000 mls @ 50 mls/hr IV .Q20H [facility] Last Admin: 04/27/17 04:12 Dose: 50 mls/hr Micafungin Sodium 100 mg/ (Sodium Chloride) 100 mls @ 100 mls/hr IV DAILY [facility] PRN Reason: Protocol Stop: 05/18/17 13:01 Last Admin: 04/27/17 14:00 Dose: 100 mls/hr Lidocaine (Lidoderm) 1 ea TD 2200 [facility] Last Admin: 04/27/17 21:51 Dose: Not Given Metoclopramide HCl (Reglan) 5 mg PO 0600,1130,1630,2200 [facility] Last Admin: 04/28/17 06:16 Dose: 5 mg Metoprolol Tartrate (Lopressor) 25 mg PO BID [facility] Last Admin: 04/27/17 18:09 Dose: 25 mg Mirtazapine (Remeron) 15 mg PO HS [facility] Last Admin: 04/27/17 21:52 Dose: 15 mg Morphine Sulfate (Morphine) 2 mg IVP Q3H PRN PRN Reason: Pain, severe (8-10) Last Admin: 04/28/17 05:55 Dose: 2 mg Nicotine (Nicoderm Cq) 1 patch TD DAILY [facility] Last Admin: 04/27/17 11:28 Dose: 1 patch Ondansetron HCl (Zofran Inj) 4 mg IVP Q4H PRN PRN Reason: Nausea/Vomiting Last Admin: 04/16/17 20:15 Dose: 4 mg Oxycodone HCl (Oxycodone Immediate Release Tab) 5 mg PO Q4H PRN PRN Reason: Pain, moderate (4-7) Pantoprazole Sodium (Protonix Susp) 40 mg PEG 0600,1600 [facility] Last Admin: 04/28/17 06:16 Dose: 40 mg Polyethylene Glycol (Miralax) 17 gm PO DAILY [facility] Last Admin: 04/27/17 11:28 Dose: 17 gm Potassium Phos/Sodium Phos (Neutra-Phos) 1 pkt PO DAILY [facility] Last Admin: 04/27/17 11:28 Dose: 1 pkt Ropinirole HCl (Requip) 1 mg PO AMHS [facility] Last Admin: 04/27/17 21:52 Dose: 1 mg Tamsulosin HCl (Flomax) 0.4 mg PO DAILY [facility] Last Admin: 04/27/17 11:30 Dose: 0.4 mg - Labs Labs: 04/28/17 08:00 04/26/17 07:00 PT 12.5 SECONDS (9.4-12.5) 04/09/17 15:35 INR 1.09 (0.93-1.08) H 04/09/17 15:35 APTT 32.7 Seconds (25.1-36.5) 04/09/17 15:35 - Constitutional Appears: Well - Head Exam Head Exam: ATRAUMATIC, NORMAL INSPECTION, NORMOCEPHALIC - Eye Exam Eye Exam: EOMI, Normal appearance, PERRL Pupil Exam: NORMAL ACCOMODATION, PERRL - ENT Exam ENT Exam: Mucous Membranes Moist, Normal Exam - Neck Exam Neck Exam: Full ROM, Normal Inspection. absent: Lymphadenopathy - Respiratory Exam Respiratory Exam: Clear to Ausculation Bilateral, NORMAL BREATHING PATTERN - Cardiovascular Exam Cardiovascular Exam: REGULAR RHYTHM, +S1, +S2. absent: Murmur - GI/Abdominal Exam GI & Abdominal Exam: Soft, Normal Bowel Sounds. absent: Tenderness - Extremities Exam Extremities Exam: Full ROM, Normal Capillary Refill, Normal Inspection. absent : Joint Swelling, Pedal Edema - Back Exam Back Exam: NORMAL INSPECTION - Neurological Exam Neurological Exam: Alert, Awake, CN II-XII Intact, Normal Gait, Oriented x3 - Psychiatric Exam Psychiatric exam: Normal Affect, Normal Mood - Skin Skin Exam: Dry, Intact, Normal Color, Warm Assessment and Plan - Assessment and Plan (Free Text) Assessment: 61M w. SMA syndrome s/p gastrojejunostomy POD#18 - High NGT output likely 2/2 high po fluid intake. Output -470 today - Get patient out of bed today - C/w tube feeds - Get patient OOB - D/w attending
[2017-04-28 08:24] LABS: ALB/GLOB RATIO 1.1 (1.1-1.8); ALT/SGPT 21 U/L (7-56); AST/SGOT 32 U/L (17-59); BLOOD UREA NITROGEN 48 mg/dL (7-21); CALCIUM 9.6 mg/dL (8.4-10.5); GFR AFRICAN-AMERICAN > 60; GFR NON-AFRICAN AMERICAN > 60
[2017-04-28] MEDS ORDERED: Barium Sulfate for Susp 96% w/w 176g Bottle PR ONE (10:37)
[2017-04-28] MEDS: POLYETHYLENE GLYCOL 3350 17 GM/Dose PACKET PO SCH (11:10)
[2017-04-28] MEDS: Potassium & Sodium Phosphate PO SCH (11:15)
--- NOTE | 2017-04-28 12:21 | RAD ---
PROCEDURE: Upper GI exam HISTORY: s/p gastrojejunostomy, r/o distal obstruction COMPARISON: TECHNIQUE: Thin barium was injected through the nasogastric tube under fluoroscopic guidance FINDINGS: Contrast fills the gastric fundus and the body of the stomach. Contrast does not flow into the small bowel. Contrast remains within the stomach despite moving the patient to either side and elevating the fluoroscopy table. The patient could not tolerate any further imaging and demanded to go back to his room. Delayed images could be obtained using portable technique IMPRESSION: No visualization of the small bowel. Findings suspicious for gastric outlet obstruction at the anastomosis. The study is limited
[2017-04-28] MEDS: Micafungin 100 MG in Sodium Chloride 0.9% 100 ML IV SCH (12:28)
--- NOTE | 2017-04-28 13:42 | CP.PCM.PN ---
Subjective - Date & Time of Evaluation Date of Evaluation: 04/28/17 Time of Evaluation: 11:25 - Subjective Subjective: Comfortable, no fevers, not in distress. Objective - Vital Signs/Intake and Output Vital Signs (last 24 hours): Temp Pulse Resp BP Pulse Ox 97 F L 120 H 22 116/86 99 04/28/17 07:00 04/28/17 07:00 04/28/17 07:00 04/28/17 07:00 04/28/17 07:00 Intake and Output: 04/28/17 04/28/17 06:59 18:59 Intake Total 1930 Output Total 2400 Balance -470 - Medications Medications: Current Medications Albuterol/Ipratropium (Duoneb 3 Mg/0.5 Mg (3 Ml) Ud) 3 ml IH [id number] [facility] Last Admin: 04/28/17 08:37 Dose: Not Given Carbamazepine (Tegretol) 100 mg PO BID [facility] PRN Reason: Protocol Last Admin: 04/27/17 18:08 Dose: 100 mg Folic Acid (Folic Acid) 1 mg PO DAILY [facility] Last Admin: 04/27/17 11:29 Dose: 1 mg Gabapentin (Neurontin) 300 mg PO HS [facility] PRN Reason: Protocol Last Admin: 04/27/17 21:51 Dose: 300 mg Heparin Sodium (Porcine) (Heparin) 5,000 units SC Q12 [facility] PRN Reason: Protocol Last Admin: 04/27/17 21:51 Dose: 5,000 units Potassium Chloride/Dextrose/Sod Cl (Potassium Chl 40 Meq In D5-1/2ns) 1,000 mls @ 50 mls/hr IV .Q20H [facility] Last Admin: 04/27/17 04:12 Dose: 50 mls/hr Micafungin Sodium 100 mg/ (Sodium Chloride) 100 mls @ 100 mls/hr IV DAILY [facility] PRN Reason: Protocol Stop: 05/18/17 13:01 Last Admin: 04/27/17 14:00 Dose: 100 mls/hr Lidocaine (Lidoderm) 1 ea TD 2200 [facility] Last Admin: 04/27/17 21:51 Dose: Not Given Metoclopramide HCl (Reglan) 5 mg PO 0600,1130,1630,2200 [facility] Last Admin: 04/28/17 06:16 Dose: 5 mg Metoprolol Tartrate (Lopressor) 25 mg PO BID [facility] Last Admin: 04/27/17 18:09 Dose: 25 mg Mirtazapine (Remeron) 15 mg PO HS [facility] Last Admin: 04/27/17 21:52 Dose: 15 mg Morphine Sulfate (Morphine) 2 mg IVP Q3H PRN PRN Reason: Pain, severe (8-10) Last Admin: 04/28/17 09:04 Dose: 2 mg Nicotine (Nicoderm Cq) 1 patch TD DAILY [facility] Last Admin: 04/27/17 11:28 Dose: 1 patch Ondansetron HCl (Zofran Inj) 4 mg IVP Q4H PRN PRN Reason: Nausea/Vomiting Last Admin: 04/16/17 20:15 Dose: 4 mg Oxycodone HCl (Oxycodone Immediate Release Tab) 5 mg PO Q4H PRN PRN Reason: Pain, moderate (4-7) Pantoprazole Sodium (Protonix Susp) 40 mg PEG 0600,1600 [facility] Last Admin: 04/28/17 06:16 Dose: 40 mg Polyethylene Glycol (Miralax) 17 gm PO DAILY [facility] Last Admin: 04/27/17 11:28 Dose: 17 gm Potassium Phos/Sodium Phos (Neutra-Phos) 1 pkt PO DAILY [facility] Last Admin: 04/27/17 11:28 Dose: 1 pkt Ropinirole HCl (Requip) 1 mg PO AMHS [facility] Last Admin: 04/27/17 21:52 Dose: 1 mg Tamsulosin HCl (Flomax) 0.4 mg PO DAILY [facility] Last Admin: 04/27/17 11:30 Dose: 0.4 mg - Labs Labs: 04/28/17 08:00 04/28/17 08:00 PT 12.5 SECONDS (9.4-12.5) 04/09/17 15:35 INR 1.09 (0.93-1.08) H 04/09/17 15:35 APTT 32.7 Seconds (25.1-36.5) 04/09/17 15:35 - Constitutional Appears: Cachectic, Chronically Ill - Head Exam Head Exam: NORMAL INSPECTION - Neck Exam Neck Exam: absent: Meningismus - Respiratory Exam Respiratory Exam: Decreased Breath Sounds - Cardiovascular Exam Cardiovascular Exam: +S1, +S2 - GI/Abdominal Exam GI & Abdominal Exam: Soft. 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
[2017-04-28 13:52] LABS: BLOOD UREA NITROGEN 50 mg/dL (7-21); GFR AFRICAN-AMERICAN > 60; GFR NON-AFRICAN AMERICAN > 60
--- NOTE | 2017-04-28 13:56 | CP.PCM.PN ---
Subjective - Date & Time of Evaluation Date of Evaluation: 04/28/17 Time of Evaluation: 09:30 - Subjective Subjective: Chief Complaint: no complaints 61 yr male w/ hstory of CVA L side deficits, multiple lou, restless leg syndrome, chronic back pain, & L knee surgery. [place] [facility] [place]. Pt was taking percocet at home for chronic back pain and began to feel abdominal pain relieved by self-induced emesis. On 04/10 pt was diagnosed w. super mesenteric artery syndrome s/p gastrojejunostomy on . Pt's daughter Peggy is requesting a second surgical opinion with Dr. Caldwell. Currently, pt is being treated for C. glabrata fungemia. Today, pt is seen in bed without any distress. Pt states he is refusing anymore surgeries. Denies any fever, chills, chest pain, shortness of breath, diarrhea, constipation, or urinary problems. Objective - Vital Signs/Intake and Output Vital Signs (last 24 hours): Temp Pulse Resp BP Pulse Ox 97 F L 120 H 22 116/86 99 04/28/17 07:00 04/28/17 07:00 04/28/17 07:00 04/28/17 07:00 04/28/17 07:00 Intake and Output: 04/28/17 04/28/17 06:59 18:59 Intake Total 1930 Output Total 2400 Balance -470 - Medications Medications: Current Medications Albuterol/Ipratropium (Duoneb 3 Mg/0.5 Mg (3 Ml) Ud) 3 ml IH [id number] [facility] Last Admin: 04/28/17 13:30 Dose: Not Given Carbamazepine (Tegretol) 100 mg PO BID [facility] PRN Reason: Protocol Last Admin: 04/28/17 11:14 Dose: Not Given Folic Acid (Folic Acid) 1 mg PO DAILY [facility] Last Admin: 04/28/17 11:13 Dose: Not Given Gabapentin (Neurontin) 300 mg PO HS [facility] PRN Reason: Protocol Last Admin: 04/27/17 21:51 Dose: 300 mg Heparin Sodium (Porcine) (Heparin) 5,000 units SC Q12 [facility] PRN Reason: Protocol Last Admin: 04/28/17 12:29 Dose: 5,000 units Potassium Chloride/Dextrose/Sod Cl (Potassium Chl 40 Meq In D5-1/2ns) 1,000 mls @ 50 mls/hr IV .Q20H [facility] Last Admin: 04/27/17 04:12 Dose: 50 mls/hr Micafungin Sodium 100 mg/ (Sodium Chloride) 100 mls @ 100 mls/hr IV DAILY [facility] PRN Reason: Protocol Stop: 05/18/17 13:01 Last Admin: 04/28/17 12:28 Dose: 100 mls/hr Lidocaine (Lidoderm) 1 ea TD 2200 [facility] Last Admin: 04/27/17 21:51 Dose: Not Given Metoclopramide HCl (Reglan) 5 mg PO 0600,1130,1630,2200 [facility] Last Admin: 04/28/17 06:16 Dose: 5 mg Metoprolol Tartrate (Lopressor) 25 mg PO BID [facility] Last Admin: 04/28/17 11:13 Dose: Not Given Mirtazapine (Remeron) 15 mg PO HS [facility] Last Admin: 04/27/17 21:52 Dose: 15 mg Morphine Sulfate (Morphine) 2 mg IVP Q3H PRN PRN Reason: Pain, severe (8-10) Last Admin: 04/28/17 12:28 Dose: 2 mg Nicotine (Nicoderm Cq) 1 patch TD DAILY [facility] Last Admin: 04/28/17 12:27 Dose: 1 patch Ondansetron HCl (Zofran Inj) 4 mg IVP Q4H PRN PRN Reason: Nausea/Vomiting Last Admin: 04/16/17 20:15 Dose: 4 mg Oxycodone HCl (Oxycodone Immediate Release Tab) 5 mg PO Q4H PRN PRN Reason: Pain, moderate (4-7) Pantoprazole Sodium (Protonix Susp) 40 mg PEG 0600,1600 [facility] Last Admin: 04/28/17 06:16 Dose: 40 mg Polyethylene Glycol (Miralax) 17 gm PO DAILY [facility] Last Admin: 04/28/17 11:10 Dose: Not Given Potassium Phos/Sodium Phos (Neutra-Phos) 1 pkt PO DAILY [facility] Last Admin: 04/28/17 11:15 Dose: Not Given Ropinirole HCl (Requip) 1 mg PO AMHS [facility] Last Admin: 04/28/17 11:14 Dose: Not Given Tamsulosin HCl (Flomax) 0.4 mg PO DAILY [facility] Last Admin: 04/28/17 11:12 Dose: Not Given - Labs Labs: 04/28/17 08:00 04/28/17 12:08 PT 12.5 SECONDS (9.4-12.5) 04/09/17 15:35 INR 1.09 (0.93-1.08) H 04/09/17 15:35 APTT 32.7 Seconds (25.1-36.5) 04/09/17 15:35 - Constitutional Appears: Cachectic, Chronically Ill - Head Exam Head Exam: ATRAUMATIC - Eye Exam Eye Exam: Normal appearance Additional comments: wearing corrective glasses - ENT Exam ENT Exam: Mucous Membranes Dry Additional comments: L nare NGT, c/d/i, copious bile - Neck Exam Neck Exam: Full ROM - Respiratory Exam Respiratory Exam: Clear to Ausculation Bilateral, NORMAL BREATHING PATTERN - Cardiovascular Exam Cardiovascular Exam: REGULAR RHYTHM, +S1, +S2. absent: Murmur - GI/Abdominal Exam GI & Abdominal Exam: Soft Additional comments: peg site C/D/I. 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 R upper arm PICC - Neurological Exam Neurological Exam: Alert, Awake - Psychiatric Exam Psychiatric exam: Depressed, Flat Affect Additional comments: Depressed, Flat Affect - Skin Skin Exam: Dry, Intact, Pallor, Warm Additional comments: Dry, Pallor, Warm Assessment and Plan (1) Nausea and vomiting Status: Acute (2) Hiccups Status: Acute (3) SMAS (superior mesenteric artery syndrome) Status: Acute (4) Dehydration Status: Acute (5) Chronic back pain Status: Acute (6) Anemia Status: Acute (7) Abdominal pain Status: Acute (8) Failure to thrive in adult Status: Acute (9) Partial small bowel obstruction Status: Ruled-out - Assessment and Plan (Free Text) Plan: Modified barium ordered. Labs ordered. IV mycamine for 4 weeks. Peg tube in place. L nare NGT in place. Seizure precautions. VTE/GI prophlyaxis. Nicotine patch ordered. PT/OT on board. Diagnosis: SMA (ruled out opioid induced constipation & SBO). PT/OT onboard. Pain management: gabapentin, morphine IV, lidocaine, oxycodone 5mg tab q 4h Consults: GI - Dr. Ozuna Surgery - Dr. Toscano Neuro - Dr. Culp Pulelva - Dr. Diaz Cardio - Dr. Bey Psych - Dr. Conn ID - Dr. Mckenna Reviewed: CT abd/pelvis = contrast seen throughout small bowel & colon, no evidence of obstruction, small amount of extra luminar air in the pelvis which is no longer seen Xray SB = NEGATIVE obstruction ECHO = EF 55-60%, ECG = Sinus tachy, w/ PAC CT angio = small droplets of free air in the anterior pelvis, suspicious for bowel perforation, small infrarenal abd aortic aneurysm, no evidence of SMA, occlusion, stenosis CT abd/pelvis = WNL
[2017-04-28] MEDS ORDERED: Sodium Chloride 0.9% 1,000 ML IV SCH (14:00)
[2017-04-28 19:13] LABS: BLOOD UREA NITROGEN 63 mg/dL (7-21); CALCIUM 10.1 mg/dL (8.4-10.5); GFR AFRICAN-AMERICAN > 60; GFR NON-AFRICAN AMERICAN > 60
[2017-04-28] MEDS: Morphine 4 mg/ml ISec IVP PRN ×2 (19:17→22:20)
[2017-04-28] MEDS: Lidocaine 5% Patch TD SCH (22:00)
--- NOTE | 2017-04-28 23:56 | PN ---
DATE: 04/28/2017 PULMONARY PROGRESS NOTE REFERRING PHYSICIAN: Radha Lantigua MD SUBJECTIVE: He is lying in the bed, head at 45 degrees. Has a nasogastric tube, on intermittent suction, but does eat ice. No chest pain, no nausea. Cough is better. Still has abdominal discomfort, tolerating PEG tube feeding well. No leg pain, no leg swelling. OBJECTIVE: GENERAL: In no acute distress. VITAL SIGNS: Temperature is 98, heart rate is 100, respiratory rate is 20, blood pressure 199/75, pulse ox is 100% on nasal cannula. HEENT: Moist mucous membrane. No ulcer or thrush noted. NECK: Supple. No JVD. LUNGS: Have a fair airflow with rhonchi. HEART: S1 and S2. Tachycardic. ABDOMEN: Positive bowel sounds, mild tenderness. J-tube area looks okay. EXTREMITIES: There is no edema. NEUROLOGIC: Awake, alert. Follows simple command. MEDICATIONS: He is on DuoNeb q. 6 hours, Flomax 0.4 mg daily, folic acid 1 mg daily, heparin 5000 units subcutaneously q. 12 hours, Lidoderm patch daily, metoprolol tartrate 25 mg twice a day, micafungin 100 mg daily, MiraLax is on hold, morphine 4 mg IV q. 3 hours p.r.n., Neurontin 300 mg at bedtime, Nicoderm patch daily, oxycodone immediate release 5 mg q. 4 hours p.r.n., Protonix 40 mg daily, Reglan 5 mg q.i.d., Remeron 15 mg at bedtime, Requip 1 mg at bedtime, IV fluid normal saline 75 mL per hour, Tegretol 100 mg twice a day, Zofran p.r.n. basis. LABORATORY DATA: Shows hemoglobin 11.2, hematocrit 34.9, WBC 21,000, platelet is 742. Sodium 129, potassium 5.5, chloride 93, bicarbonate 20, BUN 15, creatinine 0.6, glucose is 118, calcium is 10, phosphorus is 4.8. AST 32, ALT 24, alkaline phosphatase is 136, albumin is 4.0. Repeat blood cultures, there is no growth. Has a GI series done, which shows gastric outlet obstruction. IMPRESSION AND PLAN: Superior mesenteric artery syndrome, requiring gastrojejunostomy, apparently did not work, has a persistent obstruction, requiring J-tube feeding. He is doing well with the J-tube, but patient having p.o. fluid, has a nasogastric tube, which has intermittent suction and taking away all the fluid he drinks, has hyponatremia, probably secondary to ice chips causing hyponatremia, history of stroke in the remote past. Also complaining about increased back pain, lying in the bed all day. Case discussed with Dr. Lantigua second opinion, surgical is being sought. He also may need Gastroenterology intervention to think about stenting the gastric outlet area. For now, continue nasogastric tube, continue bronchodilator. Discourage free water by mouth. Followup labs in the morning. Thank you and we will follow with you. Velvet Castillo MD
[2017-04-29] MEDS: Albuterol-Ipratrop 3 mg / 0.5 (3 ml) UD IH SCH ×5 (03:03→20:55)
[2017-04-29] MEDS: Morphine 4 mg/ml ISec IVP PRN ×5 (03:53→20:34)
[2017-04-29 06:39] LABS: CALCIUM,RANDOM URINE 5.3 mg/dL
[2017-04-29] MEDS: Pantoprazole 40 mg Susp UD PEG SCH ×2 (06:40→16:41)
[2017-04-29] MEDS: Metoclopramide 5 mg/5 ml Oral Sol PO SCH ×3 (06:40→18:18)
[2017-04-29 07:24] LABS: BASO # 0.01 K/mm3 (0.0-2.0); EOS % 0.1 % (1.5-5.0); GRAN % 82.4 % (50.0-68.0); HEMOGLOBIN 10.8 g/dL (14.0-18.0); LYMPH # 2.4 (1.2-3.4); LYMPH % 10.2 % (22.0-35.0); MEAN CELL VOLUME 88.7 fl (80.0-105.0); MEAN CORPUSCULAR HEMOGLOBIN 29.1 pg (25.0-35.0); MEAN CORPUSCULAR HGB CONC 32.8 g/dl (31.0-37.0); MEAN PLATELET VOLUME 9.6 fl (7.0-11.0); MONO # 1.7 (0.1-0.6); MONO % 7.3 % (1.0-6.0); RBC 3.71 10^6/uL (3.5-6.1); WHITE BLOOD COUNT 23.1 10^3/ul (4.5-11.0)
[2017-04-29 08:18] LABS: ALB/GLOB RATIO 1.1 (1.1-1.8); ALBUMIN 3.7 g/dL (3.0-4.8); ALT/SGPT 28 U/L (7-56); AST/SGOT 31 U/L (17-59); BLOOD UREA NITROGEN 94 mg/dL (7-21); CALCIUM 9.3 mg/dL (8.4-10.5); GFR AFRICAN-AMERICAN > 60; GFR NON-AFRICAN AMERICAN > 60; MAGNESIUM 2.8 mg/dL (1.7-2.2)
[2017-04-29] MEDS: POLYETHYLENE GLYCOL 3350 17 GM/Dose PACKET PO SCH (09:31)
[2017-04-29] MEDS: Micafungin 100 MG in Sodium Chloride 0.9% 100 ML IV SCH (09:32)
--- NOTE | 2017-04-29 10:37 | CP.PCM.PCO ---
Additional Comments - Additional Comments Additional Comments: Patient has worsening electrolyte abnormalities of hyponatremia and hypochloremia as well as increasing BUN and Creatining and phosphorus and magnesium. Patient's WBC is also increasing today. Pt has tachycardia of 125. I called and left a message with Dr. Lantigua's service twice today with no call back yet. Will obtain an EKG, CXR, and increase NS IVF rate and give one dose of IV lasix. Also will recommend decreasing patient's PO fluid intake and decreasing free water flushes in feeds. Recommend an urgent nephrology consult and a transfer to telemetry
--- NOTE | 2017-04-29 11:02 | RAD ---
HISTORY: evaluate for pneumonia COMPARISON: 04/19/2017. FINDINGS: The nasogastric tube terminates in the stomach. The right PICC line terminates in the SVC. LUNGS: The lungs are well inflated and clear. PLEURA: No significant pleural effusion identified, no pneumothorax apparent. CARDIOVASCULAR: Normal. OSSEOUS STRUCTURES: No significant abnormalities. VISUALIZED UPPER ABDOMEN: Normal. OTHER FINDINGS: There is oral contrast in the stomach from prior ingestion. There is gaseous distension of bowel in the mid abdomen. IMPRESSION: The nasogastric tube terminates in the stomach. No active pulmonary disease.
--- NOTE | 2017-04-29 11:04 | CP.PCM.PN ---
Subjective - Date & Time of Evaluation Date of Evaluation: 04/29/17 Time of Evaluation: 07:35 - Subjective Subjective: Surgery Progress note. Dr. Toscano Pt seen and examined at bedside. No acute events overnight. No N/V/D. NGT to intermittent suction. NGT output 3200 over 24hrs. Denies any CP/SOB. No new complaints provided. Still c/o excessive thirst. Tolerating J tube feedings. Objective - Vital Signs/Intake and Output Vital Signs (last 24 hours): Temp Pulse Resp BP Pulse Ox 97.8 F 125 H 18 100/70 95 04/29/17 07:00 04/29/17 09:27 04/29/17 07:00 04/29/17 09:27 04/29/17 07:00 Intake and Output: 04/29/17 04/29/17 06:59 18:59 Intake Total 4360 Output Total 1000 Balance 3360 - Medications Medications: Current Medications Albuterol/Ipratropium (Duoneb 3 Mg/0.5 Mg (3 Ml) Ud) 3 ml IH [id number] [facility] Last Admin: 04/29/17 08:22 Dose: Not Given Carbamazepine (Tegretol) 100 mg PO BID [facility] PRN Reason: Protocol Last Admin: 04/29/17 09:28 Dose: 100 mg Folic Acid (Folic Acid) 1 mg PO DAILY [facility] Last Admin: 04/29/17 09:27 Dose: 1 mg Gabapentin (Neurontin) 300 mg PO HS [facility] PRN Reason: Protocol Last Admin: 04/28/17 21:31 Dose: 300 mg Heparin Sodium (Porcine) (Heparin) 5,000 units SC Q12 [facility] PRN Reason: Protocol Last Admin: 04/29/17 09:27 Dose: 5,000 units Micafungin Sodium 100 mg/ (Sodium Chloride) 100 mls @ 100 mls/hr IV DAILY [facility] PRN Reason: Protocol Stop: 05/18/17 13:01 Last Admin: 04/29/17 09:32 Dose: 100 mls/hr Sodium Chloride (Sodium Chloride 0.9%) 1,000 mls @ 75 mls/hr IV [id number] [facility] Last Admin: 04/28/17 14:30 Dose: 75 mls/hr Lidocaine (Lidoderm) 1 ea TD 2200 [facility] Last Admin: 04/28/17 22:00 Dose: Not Given Metoclopramide HCl (Reglan) 5 mg PO 0600,1130,1630,2200 [facility] Last Admin: 04/29/17 06:40 Dose: 5 mg Metoprolol Tartrate (Lopressor) 25 mg PO BID [facility] Last Admin: 04/29/17 09:27 Dose: 25 mg Mirtazapine (Remeron) 15 mg PO HS [facility] Last Admin: 04/28/17 21:32 Dose: 15 mg Morphine Sulfate (Morphine) 4 mg IVP Q3H PRN PRN Reason: Pain, severe (8-10) Last Admin: 04/29/17 06:53 Dose: 4 mg Nicotine (Nicoderm Cq) 1 patch TD DAILY [facility] Last Admin: 04/29/17 09:19 Dose: 1 patch Ondansetron HCl (Zofran Inj) 4 mg IVP Q4H PRN PRN Reason: Nausea/Vomiting Last Admin: 04/16/17 20:15 Dose: 4 mg Oxycodone HCl (Oxycodone Immediate Release Tab) 5 mg PO Q4H PRN PRN Reason: Pain, moderate (4-7) Pantoprazole Sodium (Protonix Susp) 40 mg PEG 0600,1600 [facility] Last Admin: 04/29/17 06:40 Dose: 40 mg Polyethylene Glycol (Miralax) 17 gm PO DAILY [facility] Last Admin: 04/29/17 09:31 Dose: Not Given Ropinirole HCl (Requip) 1 mg PO AMHS [facility] Last Admin: 04/29/17 09:28 Dose: 1 mg Tamsulosin HCl (Flomax) 0.4 mg PO DAILY [facility] Last Admin: 04/29/17 09:30 Dose: 0.4 mg - Labs Labs: 04/29/17 07:00 04/29/17 07:00 PT 12.5 SECONDS (9.4-12.5) 04/09/17 15:35 INR 1.09 (0.93-1.08) H 04/09/17 15:35 APTT 32.7 Seconds (25.1-36.5) 04/09/17 15:35 - Constitutional Appears: No Acute Distress, Cachectic, Chronically Ill - Head Exam Head Exam: ATRAUMATIC, NORMAL INSPECTION, NORMOCEPHALIC - Eye Exam Eye Exam: EOMI, Normal appearance - ENT Exam ENT Exam: Mucous Membranes Dry - Respiratory Exam Respiratory Exam: NORMAL BREATHING PATTERN. absent: Accessory Muscle Use, Respiratory Distress - Cardiovascular Exam Cardiovascular Exam: Tachycardia. absent: JVD - GI/Abdominal Exam GI & Abdominal Exam: Soft. absent: Distended, Firm, Guarding, Rigid, Tenderness Additional comments: J-tube in place. Dressing clean, dry and intact, Approx. 2cm at skin. - Neurological Exam Neurological Exam: Alert, Awake, Oriented x3 - Skin Skin Exam: Dry, Intact, Normal Color, Warm Assessment and Plan - Assessment and Plan (Free Text) Assessment: 61yo M with SMA syndrome s/p Gastrojejunostomy POD 19 - Severe electrolyte abnormalities noted. Hyperphosphatemia, Hyponatremia, Hypochloremia. Elevated BUN - Leukocytosis, worse. Plan: - Strict Intake & Output. May have water. Continue NGT to suction. Nursing staff to ensure recording strict inputs as well. - Continue J-tube feeds - Increase IVF: NS@125 - Recommend Nephrology consult - Will repeat labs in the evening Further recs as per Dr. Everton Khalil PGY1 surgery pager: [phone]
[2017-04-29] MEDS ORDERED: Sodium Chloride 0.9% 1,000 ML IV SCH (11:14)
--- NOTE | 2017-04-29 13:32 | CP.PCM.PN ---
Subjective - Date & Time of Evaluation Date of Evaluation: 04/29/17 Time of Evaluation: 12:45 - Subjective Subjective: Feels thirsty and wants to keep drinking water. No fevers, no diarrhea. Objective - Vital Signs/Intake and Output Vital Signs (last 24 hours): Temp Pulse Resp BP Pulse Ox 97.8 F 124 H 20 89/60 L 93 L 04/29/17 07:00 04/29/17 10:30 04/29/17 10:30 04/29/17 10:30 04/29/17 10:30 Intake and Output: 04/29/17 04/29/17 06:59 18:59 Intake Total 4360 Output Total 1000 Balance 3360 - Medications Medications: Current Medications Albuterol/Ipratropium (Duoneb 3 Mg/0.5 Mg (3 Ml) Ud) 3 ml IH [id number] [facility] Last Admin: 04/29/17 08:22 Dose: Not Given Carbamazepine (Tegretol) 100 mg PO BID [facility] PRN Reason: Protocol Last Admin: 04/29/17 09:28 Dose: 100 mg Folic Acid (Folic Acid) 1 mg PO DAILY [facility] Last Admin: 04/29/17 09:27 Dose: 1 mg Gabapentin (Neurontin) 300 mg PO HS [facility] PRN Reason: Protocol Last Admin: 04/28/17 21:31 Dose: 300 mg Heparin Sodium (Porcine) (Heparin) 5,000 units SC Q12 [facility] PRN Reason: Protocol Last Admin: 04/29/17 09:27 Dose: 5,000 units Micafungin Sodium 100 mg/ (Sodium Chloride) 100 mls @ 100 mls/hr IV DAILY [facility] PRN Reason: Protocol Stop: 05/18/17 13:01 Last Admin: 04/29/17 09:32 Dose: 100 mls/hr Sodium Chloride (Sodium Chloride 0.9%) 1,000 mls @ 125 mls/hr IV .Q8H [facility] Last Admin: 04/29/17 11:20 Dose: 125 mls/hr Lidocaine (Lidoderm) 1 ea TD 2200 [facility] Last Admin: 04/28/17 22:00 Dose: Not Given Metoclopramide HCl (Reglan) 5 mg PO 0600,1130,1630,2200 [facility] Last Admin: 04/29/17 06:40 Dose: 5 mg Metoprolol Tartrate (Lopressor) 25 mg PO BID [facility] Last Admin: 04/29/17 09:27 Dose: 25 mg Mirtazapine (Remeron) 15 mg PO HS [facility] Last Admin: 04/28/17 21:32 Dose: 15 mg Morphine Sulfate (Morphine) 4 mg IVP Q3H PRN PRN Reason: Pain, severe (8-10) Last Admin: 04/29/17 12:06 Dose: 4 mg Nicotine (Nicoderm Cq) 1 patch TD DAILY [facility] Last Admin: 04/29/17 09:19 Dose: 1 patch Ondansetron HCl (Zofran Inj) 4 mg IVP Q4H PRN PRN Reason: Nausea/Vomiting Last Admin: 04/16/17 20:15 Dose: 4 mg Oxycodone HCl (Oxycodone Immediate Release Tab) 5 mg PO Q4H PRN PRN Reason: Pain, moderate (4-7) Pantoprazole Sodium (Protonix Susp) 40 mg PEG 0600,1600 [facility] Last Admin: 04/29/17 06:40 Dose: 40 mg Polyethylene Glycol (Miralax) 17 gm PO DAILY [facility] Last Admin: 04/29/17 09:31 Dose: Not Given Ropinirole HCl (Requip) 1 mg PO AMHS [facility] Last Admin: 04/29/17 09:28 Dose: 1 mg Tamsulosin HCl (Flomax) 0.4 mg PO DAILY [facility] Last Admin: 04/29/17 09:30 Dose: 0.4 mg - Labs Labs: 04/29/17 07:00 04/29/17 07:00 PT 12.5 SECONDS (9.4-12.5) 04/09/17 15:35 INR 1.09 (0.93-1.08) H 04/09/17 15:35 APTT 32.7 Seconds (25.1-36.5) 04/09/17 15:35 - Constitutional Appears: Cachectic, Chronically Ill - Head Exam Head Exam: NORMAL INSPECTION - ENT Exam ENT Exam: Mucous Membranes Moist - Neck Exam Neck Exam: absent: Meningismus - Respiratory Exam Respiratory Exam: Decreased Breath Sounds - Cardiovascular Exam Cardiovascular Exam: +S1, +S2 - GI/Abdominal Exam GI & Abdominal Exam: Soft. 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
[2017-04-29 15:41] LABS: PH,URINE 5.5 (4.7-8.0); URINE BILIRUBIN NEGATIVE (NEGATIVE); URINE BLOOD NEGATIVE (NEGATIVE); URINE GLUCOSE (UA) NEGATIVE (NEGATIVE); URINE LEUKOCYTE ESTERASE NEGATIVE Leu/uL (NEGATIVE); URINE NITRATE NEGATIVE (NEGATIVE); URINE PROTEIN NEGATIVE mg/dL (<30 mg/dL); URINE UROBILINOGEN 0.2 E.U./dL (<1 E.U./dL)
[2017-04-29 15:51] LABS: URINE APPEARANCE CLEAR (CLEAR); URINE COLOR YELLOW (YELLOW)
--- NOTE | 2017-04-29 19:01 | CARD ---
APPROVED REPORT EKG Measurement Heart [id number] <Conclusion> Sinus tachycardia Otherwise normal ECG
[2017-04-29 19:31] LABS: OSMOLALITY,URINE 422 mosm/kg (300-1000)
[2017-04-29 20:01] LABS: ALB/GLOB RATIO 1.2 (1.1-1.8); ALBUMIN 3.4 g/dL (3.0-4.8); ALT/SGPT 19 U/L (7-56); AST/SGOT 26 U/L (17-59); BLOOD UREA NITROGEN 104 mg/dL (7-21); CALCIUM 9.4 mg/dL (8.4-10.5); GFR AFRICAN-AMERICAN > 60; GFR NON-AFRICAN AMERICAN > 60; MAGNESIUM 2.9 mg/dL (1.7-2.2)
[2017-04-29] MEDS: Sodium Chloride 0.9% 1,000 ML IV SCH (21:00)
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
[2017-04-29] MEDS: Lidocaine 5% Patch TD SCH ×2 (22:24→22:41)
[2017-04-29] MEDS ORDERED: Sodium Chloride 0.9% 1,000 ML IV STA (22:41)
[2017-04-29] MEDS ORDERED: Vancomycin 1gm in NS 250ml 1 GM/250 ML BAG IVPB STA (22:59)
[2017-04-30] MEDS: Meropenem 1g/NS 100mL IVPB 1 GM/100 ML PIGGYBACK IVPB SCH ×4 (01:11→21:03)
[2017-04-30] MEDS: Albuterol-Ipratrop 3 mg / 0.5 (3 ml) UD IH SCH ×4 (01:53→20:18)
[2017-04-30] MEDS: Morphine 4 mg/ml ISec IVP PRN ×8 (02:13→23:55)
--- NOTE | 2017-04-30 02:42 | PN ---
DATE: 04/29/2017 PULMONARY PROGRESS NOTE REFERRING PHYSICIAN: Dr. Lantigua. SUBJECTIVE: He is lying in the bed, head at 45 degree. His nasogastric tube is on suction, almost drained about 2 L. He keeps drinking free water and lot of this is getting stuck in NG tube. Tolerating J-tube feeding well. No headache, no rhinitis, no abdominal pain, no leg pain, no leg swelling. OBJECTIVE: GENERAL: In no acute distress. VITAL SIGNS: Temperature is 98, heart rate is 70, respiratory rate is 20, blood pressure 95/59, pulse ox 94% on nasal cannula. HEENT: Dry mucous membrane. NECK: Supple. No JVD. LUNGS: Have fair airflow with rhonchi. HEART: S1 and S2. ABDOMEN: Soft. J-tube looks okay. Incision site looks okay. EXTREMITIES: There is no edema. NEUROLOGICALLY: Awake, alert, follows simple commands. MEDICATIONS: He is on scopolamine patch q. 2 hours p.r.n., DuoNeb is on hold, Flomax 0.4 mg daily, folic acid 1 mg daily, heparin 5000 units subcutaneously q. 12 hours, Lidoderm patch daily, metoprolol tartrate 25 mg daily, micafungin 100 mg daily, morphine 4 mg q. 3 hour p.r.n., Neurontin 300 mg at bedtime, Nicoderm patch daily, oxycodone immediate release 5 mg q. 4 hours p.r.n., Protonix 40 mg twice a day, Reglan 5 mg four times a day, Remeron 15 mg at bedtime, Requip 1 mg a.m. and at bedtime, IV fluid normal saline 150 mL per hour, Tegretol 100 mg twice a day, Zofran p.r.n. basis. LABORATORY DATA: Shows hemoglobin 10.8, hematocrit 32.9, WBC 23,000, platelet is 776. Sodium 127, potassium 4.9, chloride 85, bicarbonate 24, BUN 104, creatinine 1.0, glucose 127, calcium is 9.4, phosphorus is 7.6, magnesium 2.9, AST 26, ALT 19, alkaline phosphatase is 154, albumin is 3.4, procalcitonin 0.77. Chest x-ray shows no infiltrate or effusion. IMPRESSION AND PLAN: Superior mesenteric artery syndrome, requiring gastrojejunostomy, apparently seems like not working according to obstructive series, persistent gastric outlet obstruction, ended up with jejunostomy tube placement which is working well and tolerating feeding well, probably has recurrent aspiration, hyponatremia, electrolyte imbalance. The patient keeps taking ice water. History of stroke in the past, chronic pain syndrome. The patient needs reevaluation for my surgery. Need guidance from General Surgery as well as GI specialty what next I have to do. The patient is obsessed having p.o. intake, has recurrent aspiration and respiratory failure. We will speak to Dr. Lantigua and surgical team. I agree with IV fluid and followup electrolytes, limit, and keep n.p.o. Followup labs in the morning. Thank you and we will follow up with you. Velvet Catsillo MD
[2017-04-30] MEDS: Pantoprazole 40 mg Susp UD PEG SCH (06:24)
[2017-04-30 06:28] LABS: BASO # 0.01 K/mm3 (0.0-2.0); BASO % 0.1 % (0.0-3.0); EOS % 0.1 % (1.5-5.0); GRAN # 14.45 (1.4-6.5); GRAN % 79.3 % (50.0-68.0); HEMOGLOBIN 9.2 g/dL (14.0-18.0); LYMPH # 2.2 (1.2-3.4); LYMPH % 12.2 % (22.0-35.0); MEAN CELL VOLUME 89.4 fl (80.0-105.0); MEAN CORPUSCULAR HEMOGLOBIN 29.5 pg (25.0-35.0); MEAN PLATELET VOLUME 9.2 fl (7.0-11.0); MONO # 1.5 (0.1-0.6); MONO % 8.3 % (1.0-6.0); RBC 3.12 10^6/uL (3.5-6.1); RED CELL DISTRIBUTION WIDTH 17.2 % (11.5-14.5); WHITE BLOOD COUNT 18.2 10^3/ul (4.5-11.0)
[2017-04-30 06:41] LABS: ALB/GLOB RATIO 1.1 (1.1-1.8); ALBUMIN 3.2 g/dL (3.0-4.8); ALT/SGPT 25 U/L (7-56); AST/SGOT 21 U/L (17-59); BLOOD UREA NITROGEN 80 mg/dL (7-21); CALCIUM 8.8 mg/dL (8.4-10.5); GFR AFRICAN-AMERICAN > 60; GFR NON-AFRICAN AMERICAN > 60; MAGNESIUM 2.9 mg/dL (1.7-2.2)
[2017-04-30] MEDS: Sodium Chloride 0.9% 1,000 ML IV SCH ×4 (08:29→21:31)
[2017-04-30] MEDS: Micafungin 100 MG in Sodium Chloride 0.9% 100 ML IV SCH (09:33)
[2017-04-30] MEDS: Benzocaine/Menthol (Cepacol) Lozenge MT PRN ×2 (09:39→22:22)
--- NOTE | 2017-04-30 10:04 | CP.PCM.PN ---
Subjective - Date & Time of Evaluation Date of Evaluation: 04/30/17 Time of Evaluation: 10:01 - Subjective Subjective: Surgery: Dr. Toscano Patient frustrated because ice water is being restricted due to sodium levels. Pain controlled. +BM. NGT output remains high. Patient stating he is considering hospice and would like to speak with someone about it. Objective - Vital Signs/Intake and Output Vital Signs (last 24 hours): Temp Pulse Resp BP Pulse Ox 97 F L 100 H 16 104/62 95 04/30/17 08:13 04/30/17 09:40 04/30/17 08:13 04/30/17 09:40 04/30/17 08:13 Intake and Output: 04/30/17 04/30/17 06:59 18:59 Intake Total 0 5120 Output Total 700 1000 Balance -700 4120 - Medications Medications: Current Medications Albuterol/Ipratropium (Duoneb 3 Mg/0.5 Mg (3 Ml) Ud) 3 ml IH [id number] [facility] Last Admin: 04/30/17 08:43 Dose: 3 ml Benzocaine/Menthol (Cepacol Sore Throat) 1 john MT Q2H PRN PRN Reason: Sore Throat Last Admin: 04/30/17 09:39 Dose: 1 john Carbamazepine (Tegretol) 100 mg PO BID [facility] PRN Reason: Protocol Last Admin: 04/30/17 09:40 Dose: 100 mg Folic Acid (Folic Acid) 1 mg PO DAILY [facility] Last Admin: 04/30/17 09:41 Dose: 1 mg Gabapentin (Neurontin) 300 mg PO HS [facility] PRN Reason: Protocol Last Admin: 04/29/17 22:24 Dose: 300 mg Heparin Sodium (Porcine) (Heparin) 5,000 units SC Q12 [facility] PRN Reason: Protocol Last Admin: 04/30/17 09:40 Dose: 5,000 units Micafungin Sodium 100 mg/ (Sodium Chloride) 100 mls @ 100 mls/hr IV DAILY [facility] PRN Reason: Protocol Stop: 05/18/17 13:01 Last Admin: 04/30/17 09:33 Dose: 100 mls/hr Sodium Chloride (Sodium Chloride 0.9%) 1,000 mls @ 150 mls/hr IV .Q6H40M [facility] Last Admin: 04/30/17 08:29 Dose: 150 mls/hr Meropenem/Sodium Chloride (Meropenem 1g/Ns 100ml Ivpb) 1 gm in 100 mls @ 100 mls/hr IVPB Q8 [facility] PRN Reason: Protocol Stop: 05/06/17 23:01 Last Admin: 04/30/17 06:24 Dose: 100 mls/hr Lidocaine (Lidoderm) 1 ea TD 2200 [facility] Last Admin: 04/29/17 22:41 Dose: Not Given Metoprolol Tartrate (Lopressor) 25 mg PO BID [facility] Last Admin: 04/30/17 09:40 Dose: 25 mg Mirtazapine (Remeron) 15 mg PO HS [facility] Last Admin: 04/29/17 22:23 Dose: 15 mg Morphine Sulfate (Morphine) 4 mg IVP Q3H PRN PRN Reason: Pain, severe (8-10) Last Admin: 04/30/17 09:41 Dose: 4 mg Ondansetron HCl (Zofran Inj) 4 mg IVP Q4H PRN PRN Reason: Nausea/Vomiting Last Admin: 04/16/17 20:15 Dose: 4 mg Pantoprazole Sodium (Protonix Susp) 40 mg PEG 0600,1600 [facility] Last Admin: 04/30/17 06:24 Dose: 40 mg Tamsulosin HCl (Flomax) 0.4 mg PO DAILY [facility] Last Admin: 04/30/17 09:40 Dose: 0.4 mg - Labs Labs: 04/30/17 06:15 04/30/17 06:15 PT 12.5 SECONDS (9.4-12.5) 04/09/17 15:35 INR 1.09 (0.93-1.08) H 04/09/17 15:35 APTT 32.7 Seconds (25.1-36.5) 04/09/17 15:35 - Constitutional Appears: No Acute Distress, Cachectic - Head Exam Head Exam: ATRAUMATIC, NORMOCEPHALIC - Eye Exam Eye Exam: EOMI - ENT Exam ENT Exam: Mucous Membranes Moist Additional comments: NGT in place - Respiratory Exam Respiratory Exam: Respiratory Distress. absent: Clear to Ausculation Bilateral - GI/Abdominal Exam GI & Abdominal Exam: Soft. absent: Distended, Guarding, Rigid, Tenderness Additional comments: j tube in place with tube feeds at 30cc/hr - Neurological Exam Neurological Exam: Alert, Awake Assessment and Plan - Assessment and Plan (Free Text) Assessment: 61yo M with SMA syndrome s/p Gastrojejunostomy POD 20 Plan: -electrolytes improving -NA normalized, phosphate improving -recommend K replacement -cont NGT on cont suction -3 pitchers of water/day -cont NS IVF -PT as tolerated -will need GJ revision if patient desires -further recs per DR. Toscano AKHavre PGY3
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
--- NOTE | 2017-04-30 14:06 | CP.PCM.PN ---
Subjective - Date & Time of Evaluation Date of Evaluation: 04/30/17 Time of Evaluation: 13:15 - Subjective Subjective: Still feeling thirsty, no fevers, feels weak and tired, has some abdominal pain but not increased from previous days. Objective - Vital Signs/Intake and Output Vital Signs (last 24 hours): Temp Pulse Resp BP Pulse Ox 97 F L 100 H 16 104/62 95 04/30/17 08:13 04/30/17 09:40 04/30/17 08:13 04/30/17 09:40 04/30/17 08:13 Intake and Output: 04/30/17 04/30/17 06:59 18:59 Intake Total 0 5120 Output Total 700 1000 Balance -700 4120 - Medications Medications: Current Medications Albuterol/Ipratropium (Duoneb 3 Mg/0.5 Mg (3 Ml) Ud) 3 ml IH [id number] [facility] Last Admin: 04/30/17 08:43 Dose: 3 ml Benzocaine/Menthol (Cepacol Sore Throat) 1 john MT Q2H PRN PRN Reason: Sore Throat Last Admin: 04/30/17 09:39 Dose: 1 john Carbamazepine (Tegretol) 100 mg PO BID [facility] PRN Reason: Protocol Last Admin: 04/30/17 09:40 Dose: 100 mg Folic Acid (Folic Acid) 1 mg PO DAILY [facility] Last Admin: 04/30/17 09:41 Dose: 1 mg Gabapentin (Neurontin) 300 mg PO HS [facility] PRN Reason: Protocol Last Admin: 04/29/17 22:24 Dose: 300 mg Heparin Sodium (Porcine) (Heparin) 5,000 units SC Q12 [facility] PRN Reason: Protocol Last Admin: 04/30/17 09:40 Dose: 5,000 units Micafungin Sodium 100 mg/ (Sodium Chloride) 100 mls @ 100 mls/hr IV DAILY [facility] PRN Reason: Protocol Stop: 05/18/17 13:01 Last Admin: 04/30/17 09:33 Dose: 100 mls/hr Sodium Chloride (Sodium Chloride 0.9%) 1,000 mls @ 150 mls/hr IV .Q6H40M [facility] Last Admin: 04/30/17 08:29 Dose: 150 mls/hr Meropenem/Sodium Chloride (Meropenem 1g/Ns 100ml Ivpb) 1 gm in 100 mls @ 100 mls/hr IVPB Q8 [facility] PRN Reason: Protocol Stop: 05/06/17 23:01 Last Admin: 04/30/17 06:24 Dose: 100 mls/hr Lidocaine (Lidoderm) 1 ea TD 2200 [facility] Last Admin: 04/29/17 22:41 Dose: Not Given Metoprolol Tartrate (Lopressor) 25 mg PO BID [facility] Last Admin: 04/30/17 09:40 Dose: 25 mg Mirtazapine (Remeron) 15 mg PO HS [facility] Last Admin: 04/29/17 22:23 Dose: 15 mg Morphine Sulfate (Morphine) 4 mg IVP Q3H PRN PRN Reason: Pain, severe (8-10) Last Admin: 04/30/17 09:41 Dose: 4 mg Ondansetron HCl (Zofran Inj) 4 mg IVP Q4H PRN PRN Reason: Nausea/Vomiting Last Admin: 04/16/17 20:15 Dose: 4 mg Pantoprazole Sodium (Protonix Susp) 40 mg PEG 0600,1600 [facility] Last Admin: 04/30/17 06:24 Dose: 40 mg Tamsulosin HCl (Flomax) 0.4 mg PO DAILY [facility] Last Admin: 04/30/17 09:40 Dose: 0.4 mg - Labs Labs: 04/30/17 06:15 04/30/17 06:15 PT 12.5 SECONDS (9.4-12.5) 04/09/17 15:35 INR 1.09 (0.93-1.08) H 04/09/17 15:35 APTT 32.7 Seconds (25.1-36.5) 04/09/17 15:35 - Constitutional Appears: Cachectic, Chronically Ill - Head Exam Head Exam: NORMAL INSPECTION - ENT Exam Additional comments: NGT in place - Neck Exam Neck Exam: absent: Meningismus - Respiratory Exam Respiratory Exam: Decreased Breath Sounds - Cardiovascular Exam Cardiovascular Exam: +S1, +S2 - GI/Abdominal Exam GI & Abdominal Exam: Soft. 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
[2017-04-30] MEDS ORDERED: Iohexol 240 (50 ml) ONE (14:13)
--- NOTE | 2017-04-30 14:51 | CP.PCM.PN ---
Subjective - Date & Time of Evaluation Date of Evaluation: 04/30/17 Time of Evaluation: 11:30 - Subjective Subjective: Patient somnolent after being given dose of morphine earlier; still complaining of thirst; Objective - Vital Signs/Intake and Output Vital Signs (last 24 hours): Temp Pulse Resp BP Pulse Ox 97 F L 100 H 16 104/62 95 04/30/17 08:13 04/30/17 09:40 04/30/17 08:13 04/30/17 09:40 04/30/17 08:13 Intake and Output: 04/30/17 04/30/17 06:59 18:59 Intake Total 0 6240 Output Total 700 1250 Balance -700 4990 - Medications Medications: Current Medications Albuterol/Ipratropium (Duoneb 3 Mg/0.5 Mg (3 Ml) Ud) 3 ml IH [id number] [facility] Last Admin: 04/30/17 14:19 Dose: Not Given Benzocaine/Menthol (Cepacol Sore Throat) 1 john MT Q2H PRN PRN Reason: Sore Throat Last Admin: 04/30/17 09:39 Dose: 1 john Carbamazepine (Tegretol) 100 mg PO BID [facility] PRN Reason: Protocol Last Admin: 04/30/17 09:40 Dose: 100 mg Folic Acid (Folic Acid) 1 mg PO DAILY [facility] Last Admin: 04/30/17 09:41 Dose: 1 mg Gabapentin (Neurontin) 300 mg PO HS [facility] PRN Reason: Protocol Last Admin: 04/29/17 22:24 Dose: 300 mg Heparin Sodium (Porcine) (Heparin) 5,000 units SC Q12 [facility] PRN Reason: Protocol Last Admin: 04/30/17 09:40 Dose: 5,000 units Micafungin Sodium 100 mg/ (Sodium Chloride) 100 mls @ 100 mls/hr IV DAILY [facility] PRN Reason: Protocol Stop: 05/18/17 13:01 Last Admin: 04/30/17 09:33 Dose: 100 mls/hr Sodium Chloride (Sodium Chloride 0.9%) 1,000 mls @ 150 mls/hr IV .Q6H40M [facility] Last Admin: 04/30/17 08:29 Dose: 150 mls/hr Meropenem/Sodium Chloride (Meropenem 1g/Ns 100ml Ivpb) 1 gm in 100 mls @ 100 mls/hr IVPB Q8 [facility] PRN Reason: Protocol Stop: 05/06/17 23:01 Last Admin: 04/30/17 06:24 Dose: 100 mls/hr Potassium Chloride (Potassium Chloride 10 Meq/100 Ml) 10 meq in 100 mls @ 50 mls/hr IVPB Q2H [facility] Stop: 04/30/17 18:44 Lidocaine (Lidoderm) 1 ea TD 2200 [facility] Last Admin: 04/29/17 22:41 Dose: Not Given Metoprolol Tartrate (Lopressor) 25 mg PO BID [facility] Last Admin: 04/30/17 09:40 Dose: 25 mg Mirtazapine (Remeron) 15 mg PO HS [facility] Last Admin: 04/29/17 22:23 Dose: 15 mg Morphine Sulfate (Morphine) 4 mg IVP Q3H PRN PRN Reason: Pain, severe (8-10) Last Admin: 04/30/17 12:12 Dose: 4 mg Pantoprazole Sodium (Protonix Susp) 40 mg PEG 0600,1600 [facility] Last Admin: 04/30/17 06:24 Dose: 40 mg Tamsulosin HCl (Flomax) 0.4 mg PO DAILY [facility] Last Admin: 04/30/17 09:40 Dose: 0.4 mg - Labs Labs: 04/30/17 06:15 04/30/17 06:15 PT 12.5 SECONDS (9.4-12.5) 04/09/17 15:35 INR 1.09 (0.93-1.08) H 04/09/17 15:35 APTT 32.7 Seconds (25.1-36.5) 04/09/17 15:35 - Constitutional Appears: No Acute Distress, Cachectic - Eye Exam Eye Exam: absent: Scleral icterus Additional comments: sunken eyes - Respiratory Exam Respiratory Exam: Clear to Ausculation Bilateral. absent: Respiratory Distress - Cardiovascular Exam Cardiovascular Exam: RRR, +S1, +S2 - GI/Abdominal Exam GI & Abdominal Exam: Soft. absent: Distended, Tenderness - Extremities Exam Additional comments: no leg edema; - Neurological Exam Additional comments: drowsy - Psychiatric Exam Psychiatric exam: absent: Agitated - Skin Skin Exam: Warm. absent: Cyanosis Assessment and Plan (1) Hyponatremia Assessment & Plan: Secondary to volume depletion, improving with isotonic saline; -continue NS at 150 cc/hr -replenish K prn (giving 20 meq IV today) -repeating urine lytes (Na, K, Cl and osm) -no need for strict PO fluid restriction, 3L daily is reasonable; Status: Acute (2) Volume depletion, gastrointestinal loss Status: Acute (3) Azotemia Assessment & Plan: Improving with increased IVF and decreasing protein calorie intake; -continue IVF as above and tube feeds at 30 cc/hr; Status: Acute (4) Increased anion gap metabolic acidosis Assessment & Plan: Lactic acidosis, appears to be improving with decreased anion gap after upgrading antibiotics; concomitant metabolic alkalosis from NG losses; continue PPI bid; Status: Acute (5) SIRS (systemic inflammatory response syndrome) Assessment & Plan: Started on vanco and meropenem, no renal dose adjustment needed; monitor vanco trough; Status: Acute
[2017-04-30] MEDS ORDERED: Iohexol 350 MG/100 ML VIAL ONE (16:12)
--- NOTE | 2017-04-30 19:49 | CT ---
EXAM: CT Abdomen and Pelvis With Intravenous Contrast CLINICAL HISTORY: 61 years old, male; Pain and signs and symptoms; Other: Obsruction; Abdominal pain; Acute; Additional info: Re-evaluate obstruction and gastrojejunostomy TECHNIQUE: Axial computed tomography images of the abdomen and pelvis with intravenous contrast. All CT scans at this facility use one or more dose reduction techniques, viz.: automated exposure control; ma/kV adjustment per patient size (including targeted exams where dose is matched to indication; i.e. head); or iterative reconstruction technique. Coronal and sagittal reformatted images were created and reviewed. CONTRAST: 100 mL of omni 350 administered intravenously. COMPARISON: CT - ABD PELVIS PO IV CONTRAST 2017-04-19 17:31. Images only. FINDINGS: Lower thorax: Diffuse tiny "tree in bud "opacities at right lung base, perhaps secondary to aspiration. Groundglass opacity also noted at lung bases. Interval improvement in appearance of both lung bases. Resolution of pleural effusions. ABDOMEN: Liver: Hepatic steatosis. Gallbladder and bile ducts: Gallbladder is contracted. Cholelithiasis. No ductal dilation. Pancreas: Unremarkable. No mass. No ductal dilation. Spleen: Unremarkable. No splenomegaly. Adrenals: Unremarkable. No mass. Kidneys and ureters: Unremarkable. No solid mass. No hydronephrosis. Stomach and bowel: Contrast filled stomach. Appendix: No findings to suggest acute appendicitis. PELVIS: Bladder: Unremarkable. No mass. Reproductive: Unremarkable as visualized. ABDOMEN and PELVIS: Intraperitoneal space: Unremarkable. No free air. No significant fluid collection. Bones/joints: Scoliosis. Diffuse spinal degenerative changes. No acute fracture. No dislocation. Soft tissues: Midline skin antionette. Vasculature: Infrarenal abdominal aortic aneurysm measuring 3.0 CM in diameter. Lymph nodes: Unremarkable. No enlarged lymph nodes. Tubes, lines and devices: Nasogastric tube in stomach. Oral contrast seen throughout much of small bowel. Jejunostomy tube in place. Large amount of retained stool in the left colon, and rectum. IMPRESSION: 1. Nasogastric tube and jejunostomy tubes in place. Oral contrast throughout much of small bowel. Constipation. 2. Interval improvement in appearance of the lung bases. 3. Remainder of findings as above.
[2017-04-30] MEDS: Lidocaine 5% Patch TD SCH (21:32)
[2017-05-01] MEDS: Sodium Chloride 0.9% 1,000 ML IV SCH ×3 (00:49→18:09)
[2017-05-01] MEDS: Albuterol-Ipratrop 3 mg / 0.5 (3 ml) UD IH SCH ×4 (01:50→20:24)
--- NOTE | 2017-05-01 03:25 | PN ---
DATE: PULMONARY PROGRESS NOTE REFERRING PHYSICIAN: Radha Lantigua MD. SUBJECTIVE: He is lying in the bed. Nasogastric tube draining a lot of bilious fluid from the stomach, also been drinking contrast for possible CT of the abdomen with contrast. Mild cough. No sputum production. Mild abdominal pain. Tolerating J-tube feeding well. No leg pain, no leg swelling. OBJECTIVE: GENERAL: In no acute distress. VITAL SIGNS: Temperature is 98, heart rate is 90, respiratory rate is 16, blood pressure 108/74, pulse ox 97% on 2 liter nasal cannula. HEENT: Moist mucous membrane. Small oral cavity. NECK: Supple. No JVD. LUNGS: Have a few scattered rhonchi. HEART: S1 and S2. ABDOMEN: Positive bowel sound. J-tube looks okay. Soft to touch. EXTREMITIES: There is no edema. NEUROLOGICALLY: Awake, alert, follows simple commands. MEDICATIONS: He is on Cepacol lozenges p.r.n. basis, DuoNeb p.r.n. basis, Flomax 0.4 mg daily, folic acid 1 mg daily, heparin 5000 units subcutaneously q. 12 hours, Lidoderm patch on affected area, metoprolol tartrate 25 mg twice a day, meropenem 1 g IV q. 8 hours, micafungin 100 mg daily, morphine 4 mg q. 3 hours p.r.n., Neurontin 300 mg at bedtime, Nicoderm patch daily, Protonix 40 mg twice a day, Remeron 15 mg at bedtime, IV fluid normal saline 125 mL per hour, Tegretol 100 mg twice a day. LABORATORY DATA: Shows hemoglobin 9.2, hematocrit 27.9, WBC 18.2, platelet is 587. Sodium 134, potassium 3.4, chloride 93, bicarbonate 25, BUN 18, creatinine 0.6, glucose 107, calcium 8.8, phosphorus is 4.6, magnesium 2.9, AST 21, ALT 25, alkaline phosphatase is 131, albumin is 3.2, procalcitonin 0.77. Urine culture has gram negative rods. Blood culture, there is no growth. CT of the abdomen and pelvis are already done, shows nasogastric tube and jejunostomy tube in their place, oral contrast throughout much of the small bowel, constipation, interval improvement in appearance of the lung bases. 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 If this is true that the contrast going through the small bowel, why we need nosogenic tube and intermittent suction; probably we should clamp the tube, and see how he does, and get him out of bed to chair, physical therapy, ambulate. Continue antibiotics, bronchodilator, aspiration precaution. Follow up electrolyte in the morning. Thank you and we will follow with you. Velvet Castillo MD
[2017-05-01] MEDS: Morphine 4 mg/ml ISec IVP PRN ×7 (03:43→21:44)
--- NOTE | 2017-05-01 03:46 | PN ---
DATE: SUBJECTIVE: The patient is a 61-year-old male. The patient was seen and examined at the bedside. No big change in the status. No fever, no chills. Still feeling weak and tired. Some abdominal pain and back pain. Still bile is draining with the NG tube. Feeling thirsty. No swelling of the leg. No dysuria. PHYSICAL EXAMINATION VITAL SIGNS: Temperature 97, pulse 100, respiratory rate 16, blood pressure 104/62, pulse oximetry is 95%. HEENT: Head normocephalic, atraumatic. Eyes: PERRLA. Extraocular muscles intact. Conjunctivae clear. Nose patent. Mucous membrane moist. NECK: Supple. No carotid bruit, JVD or thyromegaly. CHEST: Bilaterally symmetrical. HEART: S1 and S2 positive. LUNGS: Clear to auscultation. ABDOMEN: Soft. Has J-tube working very well and abdominal incision has antionette that looks healthy. EXTREMITIES: No edema. No cyanosis. NEUROLOGIC: The patient is awake and alert. Moving all 4 extremities. Obeying simple orders. MEDICATIONS: Benzocaine, Tegretol, folic acid, Neurontin, heparin, micafungin, NS, Lidoderm, Lopressor, Remeron, morphine, Zofran, Protonix. LABORATORY DATA: White blood cells is 18.2, hemoglobin 9.2, hematocrit 27.9, platelets 587. Sodium 130, potassium 3.4. BUN 18, creatinine 0.6, glucose 107. ASSESSMENT AND PLAN: Mr. 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 Infectious Disease is on the case. According to Infectious Disease, continue Mycamine, day 10, for at least 4 weeks. Eye consult called to rule out endophthalmitis is still waiting. Nephrology is on the case for electrolyte abnormalities. Patient is getting IV Merrem and IV vancomycin. Overall prognosis is poor. Seen by Dr. Paul and Dr. Lester. CAT scan of abdomen and pelvis done, reviewed by me. Got second opinion from Dr. Lees. For continued obstruction, status post gastrojejunostomy for superior mesenteric artery syndrome. Stenosis seen in esophagogastroduodenoscopy at efferent limb of anastomosis site, could be ischemic obstruction versus mechanical. Repeat CAT scan done. Proximal gastrointestinal anatomy and obstruction could be seen with CAT scan. Continue tube feeding. According to Dr. Lees, he agrees with the primary surgeon, Dr. Toscano regarding surgical revision of the anastomosis. Length of time discussion done with the patient, surgical supplies sterilizer and nurse. We will follow up. Radha Lantigua MD
[2017-05-01] MEDS: Meropenem 1g/NS 100mL IVPB 1 GM/100 ML PIGGYBACK IVPB SCH ×3 (05:26→21:44)
[2017-05-01 07:13] LABS: BASO # 0.01 K/mm3 (0.0-2.0); BASO % 0.1 % (0.0-3.0); EOS # 0.1 (0.0-0.7); EOS % 0.8 % (1.5-5.0); GRAN # 9.71 (1.4-6.5); GRAN % 74.7 % (50.0-68.0); HEMOGLOBIN 8.3 g/dL (14.0-18.0); LYMPH % 15.5 % (22.0-35.0); MEAN CELL VOLUME 91.8 fl (80.0-105.0); MEAN CORPUSCULAR HEMOGLOBIN 29.4 pg (25.0-35.0); MEAN PLATELET VOLUME 9.2 fl (7.0-11.0); MONO # 1.2 (0.1-0.6); MONO % 8.9 % (1.0-6.0); RBC 2.82 10^6/uL (3.5-6.1); RED CELL DISTRIBUTION WIDTH 17.2 % (11.5-14.5)
[2017-05-01 07:26] LABS: ALBUMIN 2.9 g/dL (3.0-4.8); ALT/SGPT 16 U/L (7-56); AST/SGOT 31 U/L (17-59); BLOOD UREA NITROGEN 36 mg/dL (7-21); CALCIUM 8.8 mg/dL (8.4-10.5); GFR AFRICAN-AMERICAN > 60; GFR NON-AFRICAN AMERICAN > 60
--- NOTE | 2017-05-01 09:33 | CP.PCM.PN ---
Subjective - Date & Time of Evaluation Date of Evaluation: 05/01/17 Time of Evaluation: 07:40 - Subjective Subjective: Patient seen and examined. No adverse events overnight. Patient had 1900cc's of fluid from the NGT overnight. Patient denies any nausea, vomiting, or abdominal pain, but has an appetite and would like to eat fruit. Objective - Vital Signs/Intake and Output Vital Signs (last 24 hours): Temp Pulse Resp BP Pulse Ox 97 F L 93 H 16 91/67 L 99 05/01/17 08:11 05/01/17 08:11 05/01/17 08:11 05/01/17 08:11 05/01/17 08:11 Intake and Output: 05/01/17 05/01/17 06:59 18:59 Intake Total 180 Output Total 725 Balance -545 - Medications Medications: Current Medications Albuterol/Ipratropium (Duoneb 3 Mg/0.5 Mg (3 Ml) Ud) 3 ml IH [id number] [facility] Last Admin: 05/01/17 07:30 Dose: 3 ml Benzocaine/Menthol (Cepacol Sore Throat) 1 john MT Q2H PRN PRN Reason: Sore Throat Last Admin: 04/30/17 22:22 Dose: 1 john Carbamazepine (Tegretol) 100 mg PO BID [facility] PRN Reason: Protocol Last Admin: 04/30/17 09:40 Dose: 100 mg Docusate Sodium (Colace Liquid) 100 mg PO TID [facility] Folic Acid (Folic Acid) 1 mg PO DAILY [facility] Last Admin: 04/30/17 09:41 Dose: 1 mg Gabapentin (Neurontin) 300 mg PO HS [facility] PRN Reason: Protocol Last Admin: 04/30/17 21:04 Dose: 300 mg Heparin Sodium (Porcine) (Heparin) 5,000 units SC Q12 [facility] PRN Reason: Protocol Last Admin: 04/30/17 21:04 Dose: 5,000 units Micafungin Sodium 100 mg/ (Sodium Chloride) 100 mls @ 100 mls/hr IV DAILY [facility] PRN Reason: Protocol Stop: 05/18/17 13:01 Last Admin: 04/30/17 09:33 Dose: 100 mls/hr Meropenem/Sodium Chloride (Meropenem 1g/Ns 100ml Ivpb) 1 gm in 100 mls @ 100 mls/hr IVPB Q8 [facility] PRN Reason: Protocol Stop: 05/06/17 23:01 Last Admin: 05/01/17 05:26 Dose: 100 mls/hr Sodium Chloride (Sodium Chloride 0.9%) 1,000 mls @ 125 mls/hr IV .Q8H [facility] Last Admin: 05/01/17 05:52 Dose: 125 mls/hr Lidocaine (Lidoderm) 1 ea TD 2200 [facility] Last Admin: 04/30/17 21:32 Dose: Not Given Metoprolol Tartrate (Lopressor) 25 mg PO BID [facility] Last Admin: 04/30/17 17:16 Dose: 25 mg Mirtazapine (Remeron) 15 mg PO HS [facility] Last Admin: 04/30/17 21:04 Dose: 15 mg Morphine Sulfate (Morphine) 4 mg IVP Q3H PRN PRN Reason: Pain, severe (8-10) Last Admin: 05/01/17 06:42 Dose: 4 mg Nicotine (Nicoderm Cq) 1 patch TD DAILY [facility] Last Admin: 04/30/17 16:22 Dose: 1 patch Pantoprazole Sodium (Protonix Inj) 40 mg IVP Q12 [facility] Last Admin: 04/30/17 21:04 Dose: 40 mg Tamsulosin HCl (Flomax) 0.4 mg PO DAILY [facility] Last Admin: 04/30/17 09:40 Dose: 0.4 mg - Labs Labs: 05/01/17 06:50 05/01/17 06:50 PT 12.5 SECONDS (9.4-12.5) 04/09/17 15:35 INR 1.09 (0.93-1.08) H 04/09/17 15:35 APTT 32.7 Seconds (25.1-36.5) 04/09/17 15:35 - Constitutional Appears: Non-toxic, No Acute Distress, Chronically Ill - Head Exam Head Exam: ATRAUMATIC, NORMOCEPHALIC - Eye Exam Eye Exam: Normal appearance. absent: Conjunctival injection, Scleral icterus - ENT Exam ENT Exam: Mucous Membranes Moist, Normal Oropharynx - Respiratory Exam Respiratory Exam: NORMAL BREATHING PATTERN. absent: Accessory Muscle Use, Respiratory Distress - GI/Abdominal Exam GI & Abdominal Exam: Soft. absent: Distended, Tenderness Additional comments: midline incision well approximated with antionette, healing well. G-tube in place @ 2cm at the skin - Extremities Exam Extremities Exam: absent: Calf Tenderness, Pedal Edema, Tenderness - Neurological Exam Neurological Exam: Alert, Awake, Oriented x3 - Psychiatric Exam Psychiatric exam: Normal Affect, Normal Mood - Skin Skin Exam: Dry, Intact, Normal Color, Warm Assessment and Plan - Assessment and Plan (Free Text) Assessment: 61yo M with SMA syndrome s/p Gastrojejunostomy POD 21 Plan: -electrolytes and WBC improving -recommend K replacement -cont NGT on cont suction -3 pitchers of water/day, patient may also have a small amount of fruit juice -cont NS IVF -PT as tolerated -will need GJ revision--possibly on if patient desires. Patient and patient's family also considering home with hospice care. Will follow up their decision further recs per DR. Everton Granados, PGY2
[2017-05-01] MEDS: Micafungin 100 MG in Sodium Chloride 0.9% 100 ML IV SCH (09:43)
--- NOTE | 2017-05-01 10:12 | PN ---
DATE: 04/29/2017 SUBJECTIVE: Patient is seen and examined on the bedside, getting clean up. No chest pain. No shortness of breath. Still thirsty. No acute events happened overnight. No nausea, vomiting or diarrhea. NG tube is on intermittent suction and draining bilious material. Tolerating J-tube feeding. No fever, no chills. No hematuria, no hematochezia. Looks like fatigue and tired. PHYSICAL EXAMINATION VITAL SIGNS: Temperature is 97.8, pulse 125, respiratory rate 18, blood pressure 100/50, pulse oximetry is 95%. HEENT: Head: Normocephalic, atraumatic. Eyes: PERRLA. Extraocular muscles intact. Conjunctivae clear. Nose: Patent. NECK: Supple. No carotid bruits, JVD or thyromegaly. CHEST: Bilaterally symmetrical. HEART: S1 and S2 positive. LUNGS: Clear to auscultation. ABDOMEN: Soft. Has a feeding J-tube and antionette from the surgery. Bowel sounds positive. No organomegaly. EXTREMITIES: No edema. No cyanosis. NEUROLOGIC: Patient is awake and alert, moves all 4 extremities. MEDICATIONS: Tegretol, folic acid, Neurontin, heparin, micafungin, NS, Lidoderm, Reglan, Remeron, morphine, Nicoderm, Zofran, oxycodone, Protonix, MiraLax, Requip, Flomax. LABORATORY DATA: White blood cells is 23.1, hemoglobin 10.8, hematocrit 32.9, platelets noted Sodium 124, potassium 4.5, BUN 94, creatinine 1.0, glucose 137. ASSESSMENT AND PLAN: Mr. Ahumada 61-year-old male with leukocytosis, anemia, thrombocytosis, hyponatremia, hypochloremia, dehydrated, hyperglycemia, electrolyte imbalance, spoke to surgical residents, Granados, length of time, requested Nephrology consult with Dr. Moe Paul and reconsult with Dr. Mckenna for leukocytosis. Patient has superior mesenteric artery syndrome, status post gastrojejunostomy, postoperative day #19; severe electrolyte abnormalities, hyperphosphatemia. Discussion done with another resident face to face; he told me that Dr. Paul's consult is already called and Dr. Lester is already on the case. Strict intake and output; may have water as per surgical team. Continue nasogastric tube for suction. Continue jejunostomy feeding, increase intravenous fluid, NS 125. Waiting for Nephrology input, and as per the patient's family, they want second opinion from Dr. Lees. Discussion done with surgical supply assistant, Dr. Lees and put his consult, waiting for his input. Seen by Dr. Qouc Lester and even I had discussion with Dr. Quoc Lester one-to-one about this patient. 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 Cerebrovascular accident with left-sided weakness; chronic back pain; status post left knee surgery. We will continue Mycamine day #9 for at least 4 weeks. Put Ophthalmology consult, still waiting. Maybe rule out diabetes insipidus. Repeat blood culture, urine culture. Overall prognosis is poor. Family is aware of that. Gastrointestinal and deep vein thrombosis prophylaxis. Repeat labs. We will follow up. Radha Lantigua MD MTDD
--- NOTE | 2017-05-01 12:48 | CP.PCM.PN ---
Subjective - Date & Time of Evaluation Date of Evaluation: 05/01/17 Time of Evaluation: 11:20 - Subjective Subjective: Still feels weak, no fevers, no abdominal pain currently. Objective - Vital Signs/Intake and Output Vital Signs (last 24 hours): Temp Pulse Resp BP Pulse Ox 97 F L 93 H 16 90/58 L 99 05/01/17 08:11 05/01/17 08:11 05/01/17 08:11 05/01/17 09:46 05/01/17 08:11 Intake and Output: 05/01/17 05/01/17 06:59 18:59 Intake Total 180 Output Total 725 Balance -545 - Medications Medications: Current Medications Albuterol/Ipratropium (Duoneb 3 Mg/0.5 Mg (3 Ml) Ud) 3 ml IH [id number] [facility] Last Admin: 05/01/17 07:30 Dose: 3 ml Benzocaine/Menthol (Cepacol Sore Throat) 1 john MT Q2H PRN PRN Reason: Sore Throat Last Admin: 04/30/17 22:22 Dose: 1 john Carbamazepine (Tegretol) 100 mg PO BID [facility] PRN Reason: Protocol Last Admin: 05/01/17 09:50 Dose: 100 mg Docusate Sodium (Colace Liquid) 100 mg PO TID [facility] Last Admin: 05/01/17 09:53 Dose: 100 mg Folic Acid (Folic Acid) 1 mg PO DAILY [facility] Last Admin: 05/01/17 09:53 Dose: 1 mg Gabapentin (Neurontin) 300 mg PO HS [facility] PRN Reason: Protocol Last Admin: 04/30/17 21:04 Dose: 300 mg Heparin Sodium (Porcine) (Heparin) 5,000 units SC Q12 [facility] PRN Reason: Protocol Last Admin: 05/01/17 09:50 Dose: 5,000 units Micafungin Sodium 100 mg/ (Sodium Chloride) 100 mls @ 100 mls/hr IV DAILY [facility] PRN Reason: Protocol Stop: 05/18/17 13:01 Last Admin: 05/01/17 09:43 Dose: 100 mls/hr Meropenem/Sodium Chloride (Meropenem 1g/Ns 100ml Ivpb) 1 gm in 100 mls @ 100 mls/hr IVPB Q8 [facility] PRN Reason: Protocol Stop: 05/06/17 23:01 Last Admin: 05/01/17 05:26 Dose: 100 mls/hr Sodium Chloride (Sodium Chloride 0.9%) 1,000 mls @ 125 mls/hr IV .Q8H [facility] Last Admin: 05/01/17 05:52 Dose: 125 mls/hr Lidocaine (Lidoderm) 1 ea TD 2200 [facility] Last Admin: 04/30/17 21:32 Dose: Not Given Metoprolol Tartrate (Lopressor) 25 mg PO BID [facility] Last Admin: 05/01/17 09:46 Dose: Not Given Mirtazapine (Remeron) 15 mg PO HS [facility] Last Admin: 04/30/17 21:04 Dose: 15 mg Morphine Sulfate (Morphine) 4 mg IVP Q3H PRN PRN Reason: Pain, severe (8-10) Last Admin: 05/01/17 09:49 Dose: 4 mg Nicotine (Nicoderm Cq) 1 patch TD DAILY [facility] Last Admin: 05/01/17 09:53 Dose: 1 patch Pantoprazole Sodium (Protonix Inj) 40 mg IVP Q12 [facility] Last Admin: 05/01/17 09:49 Dose: 40 mg Tamsulosin HCl (Flomax) 0.4 mg PO DAILY [facility] Last Admin: 05/01/17 09:49 Dose: 0.4 mg - Labs Labs: 05/01/17 06:50 05/01/17 06:50 PT 12.5 SECONDS (9.4-12.5) 04/09/17 15:35 INR 1.09 (0.93-1.08) H 04/09/17 15:35 APTT 32.7 Seconds (25.1-36.5) 04/09/17 15:35 - Constitutional Appears: Cachectic, Chronically Ill - Head Exam Head Exam: NORMAL INSPECTION - ENT Exam Additional comments: NGT in place - Neck Exam Neck Exam: absent: Meningismus - Respiratory Exam Respiratory Exam: Decreased Breath Sounds - Cardiovascular Exam Cardiovascular Exam: +S1, +S2 - GI/Abdominal Exam GI & Abdominal Exam: Soft. absent: Tenderness Assessment and Plan - Assessment and Plan (Free Text) Plan: Assessment sepsis from C. glabrata fungemia, R/O aspiration pneumonia SMA syndrome S/P gastrojejunostomy POD #21 severe electrolyte abnormalities, including hyponatermia HTN dyslipidemia CVA with left sided weakness chronic back pain S/P left knee surgery Plan continue Mycamine day 11 for at least 4 weeks; recommend Ophtho exam to rule out endophthalmitis Renal following for electrolyte abnormalities WBC count increased - repeat CT A/P showing possible right lower lobe developing aspiration pneumonia - we will continue IV Merrem day 2 and a gave a dose of IV Vanco follow up further Surgery recommendations overall prognosis is very poor
--- NOTE | 2017-05-01 16:10 | CP.PCM.PN ---
<Claudia Mccallum - Last Filed: 05/01/17 16:07> Subjective - Date & Time of Evaluation Date of Evaluation: 05/01/17 Time of Evaluation: 11:30 - Subjective Subjective: Chief Complaint: no complaints 61 yr male w/ history of CVA L side deficits, multiple lou, restless leg syndrome, chronic back pain, & L knee surgery. Pt admitted to [facility] for generalized abdominal pain. Pt was taking percocet at home for chronic back pain and began to feel abdominal pain relieved by self-induced emesis. On 04/10 pt was diagnosed w. super mesenteric artery syndrome s/p gastrojejunostomy on . Pt's daughter Peggy is requesting a second surgical opinion with Dr. Caldwell. Second opinion by Javi provided. He believed current surgical team plan is appropriate. Treatment for C. glabrata fungemia onboard. Today, pt is seen resting in bed without any distress. Good appetite noted. Denies any fever, chills, chest pain, shortness of breath, diarrhea, constipation, or urinary problems. Objective - Vital Signs/Intake and Output Vital Signs (last 24 hours): Temp Pulse Resp BP Pulse Ox 97 F L 93 H 16 90/58 L 99 05/01/17 08:11 05/01/17 08:11 05/01/17 08:11 05/01/17 09:46 05/01/17 08:11 Intake and Output: 05/01/17 05/01/17 06:59 18:59 Intake Total 180 Output Total 725 Balance -545 - Medications Medications: Current Medications Albuterol/Ipratropium (Duoneb 3 Mg/0.5 Mg (3 Ml) Ud) 3 ml IH [id number] [facility] Last Admin: 05/01/17 13:21 Dose: Not Given Benzocaine/Menthol (Cepacol Sore Throat) 1 john MT Q2H PRN PRN Reason: Sore Throat Last Admin: 04/30/17 22:22 Dose: 1 john Carbamazepine (Tegretol) 100 mg PO BID [facility] PRN Reason: Protocol Last Admin: 05/01/17 09:50 Dose: 100 mg Docusate Sodium (Colace Liquid) 100 mg PO TID [facility] Last Admin: 05/01/17 13:40 Dose: Not Given Folic Acid (Folic Acid) 1 mg PO DAILY [facility] Last Admin: 05/01/17 09:53 Dose: 1 mg Gabapentin (Neurontin) 300 mg PO HS [facility] PRN Reason: Protocol Last Admin: 04/30/17 21:04 Dose: 300 mg Heparin Sodium (Porcine) (Heparin) 5,000 units SC Q12 [facility] PRN Reason: Protocol Last Admin: 05/01/17 09:50 Dose: 5,000 units Micafungin Sodium 100 mg/ (Sodium Chloride) 100 mls @ 100 mls/hr IV DAILY [facility] PRN Reason: Protocol Stop: 05/18/17 13:01 Last Admin: 05/01/17 09:43 Dose: 100 mls/hr Meropenem/Sodium Chloride (Meropenem 1g/Ns 100ml Ivpb) 1 gm in 100 mls @ 100 mls/hr IVPB Q8 [facility] PRN Reason: Protocol Stop: 05/06/17 23:01 Last Admin: 05/01/17 14:11 Dose: 100 mls/hr Sodium Chloride (Sodium Chloride 0.9%) 1,000 mls @ 125 mls/hr IV .Q8H [facility] Last Admin: 05/01/17 05:52 Dose: 125 mls/hr Lidocaine (Lidoderm) 1 ea TD 2200 [facility] Last Admin: 04/30/17 21:32 Dose: Not Given Metoprolol Tartrate (Lopressor) 25 mg PO BID [facility] Last Admin: 05/01/17 09:46 Dose: Not Given Mirtazapine (Remeron) 15 mg PO HS [facility] Last Admin: 04/30/17 21:04 Dose: 15 mg Morphine Sulfate (Morphine) 4 mg IVP Q3H PRN PRN Reason: Pain, severe (8-10) Last Admin: 05/01/17 15:52 Dose: 4 mg Nicotine (Nicoderm Cq) 1 patch TD DAILY [facility] Last Admin: 05/01/17 09:53 Dose: 1 patch Pantoprazole Sodium (Protonix Inj) 40 mg IVP Q12 [facility] Last Admin: 05/01/17 09:49 Dose: 40 mg Tamsulosin HCl (Flomax) 0.4 mg PO DAILY [facility] Last Admin: 05/01/17 09:49 Dose: 0.4 mg - Labs Labs: 05/01/17 06:50 05/01/17 06:50 PT 12.5 SECONDS (9.4-12.5) 04/09/17 15:35 INR 1.09 (0.93-1.08) H 04/09/17 15:35 APTT 32.7 Seconds (25.1-36.5) 04/09/17 15:35 - Constitutional Appears: Cachectic, Chronically Ill - Head Exam Head Exam: ATRAUMATIC, NORMAL INSPECTION, NORMOCEPHALIC - Eye Exam Eye Exam: EOMI, Normal appearance, PERRL Pupil Exam: NORMAL ACCOMODATION, PERRL Additional comments: wearing corrective glasses - ENT Exam ENT Exam: Mucous Membranes Moist Additional comments: R nare NGT, c/d/i, copious green bile - Neck Exam Neck Exam: Full ROM, Normal Inspection. absent: Lymphadenopathy - Respiratory Exam Respiratory Exam: Clear to Ausculation Bilateral, NORMAL BREATHING PATTERN - Cardiovascular Exam Cardiovascular Exam: REGULAR RHYTHM, +S1, +S2. 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 R upper arm PICC - Neurological Exam Neurological Exam: Alert, Awake, Oriented x3 - Psychiatric Exam Psychiatric exam: Depressed, Flat Affect - Skin Skin Exam: Dry, Pallor, Warm Assessment and Plan (1) Nausea and vomiting Status: Acute (2) Hiccups Status: Acute (3) SMAS (superior mesenteric artery syndrome) Status: Acute (4) Dehydration Status: Acute (5) Chronic back pain Status: Acute (6) Anemia Status: Acute (7) Abdominal pain Status: Acute (8) Failure to thrive in adult Status: Acute (9) Partial small bowel obstruction Status: Ruled-out - Assessment and Plan (Free Text) Plan: Appreciate GI/surgery input. IV mycamine for 4 weeks. Peg tube in place. R nare NGT in place. Seizure precautions. VTE/GI prophlyaxis. Nicotine patch ordered. PT/OT on board. Diagnosis: SMA (ruled out opioid induced constipation & SBO). PT /OT onboard. Pain management: gabapentin, morphine IV, lidocaine, oxycodone 5mg tab q 4h Consults: GI - Dr. Ozuna Surgery - Dr. Toscano Neuro - Dr. Culp Pulm - Dr. Diaz Cardio - Dr. Bey Psych - Dr. Conn ID - Dr. Mckenna Reviewed: CT abd/pelvis = NG tube & jejunostomy tube in place, oral contract throughout small bowel. constipation. improvement of lung bases. CXR = gaseous distension of bowel mid abdomen. NG tube placement 04/29. GI series w/ small bowel = suspicious for gastric outlet obstruction at the anastomosis, limited study CT abd/pelvis = contrast seen throughout small bowel & colon, no evidence of obstruction, small amount of extra luminar air in the pelvis which is no longer seen Xray SB = NEGATIVE obstruction ECHO = EF 55-60%, ECG = Sinus tachy, w/ PAC CT angio = small droplets of free air in the anterior pelvis, suspicious for bowel perforation, small infrarenal abd aortic aneurysm, no evidence of SMA, occlusion, stenosis CT abd/pelvis = WNL <Radha Lantigua - Last Filed: 05/02/17 13:37> Objective - Vital Signs/Intake and Output Vital Signs (last 24 hours): Temp Pulse Resp BP Pulse Ox 98.0 F 99 H 16 89/59 L 94 L 05/02/17 06:00 05/02/17 07:40 05/02/17 06:00 05/02/17 06:00 05/02/17 06:00 Intake and Output: 05/02/17 05/02/17 06:59 18:59 Intake Total 6420 Output Total 6300 Balance 120 - Medications Medications: Current Medications Albuterol/Ipratropium (Duoneb 3 Mg/0.5 Mg (3 Ml) Ud) 3 ml IH [id number] [facility] Last Admin: 05/02/17 07:41 Dose: 3 ml Benzocaine/Menthol (Cepacol Sore Throat) 1 john MT Q2H PRN PRN Reason: Sore Throat Last Admin: 04/30/17 22:22 Dose: 1 john Carbamazepine (Tegretol) 100 mg PO BID [facility] PRN Reason: Protocol Last Admin: 05/02/17 10:34 Dose: 100 mg Docusate Sodium (Colace Liquid) 100 mg PO TID [facility] Last Admin: 05/02/17 10:34 Dose: 100 mg Folic Acid (Folic Acid) 1 mg PO DAILY [facility] Last Admin: 05/02/17 10:35 Dose: 1 mg Gabapentin (Neurontin) 300 mg PO HS [facility] PRN Reason: Protocol Last Admin: 05/01/17 21:46 Dose: 300 mg Heparin Sodium (Porcine) (Heparin) 5,000 units SC Q12 [facility] PRN Reason: Protocol Last Admin: 05/02/17 10:51 Dose: 5,000 units Micafungin Sodium 100 mg/ (Sodium Chloride) 100 mls @ 100 mls/hr IV DAILY [facility] PRN Reason: Protocol Stop: 05/18/17 13:01 Last Admin: 05/02/17 10:37 Dose: 100 mls/hr Meropenem/Sodium Chloride (Meropenem 1g/Ns 100ml Ivpb) 1 gm in 100 mls @ 100 mls/hr IVPB Q8 [facility] PRN Reason: Protocol Stop: 05/06/17 23:01 Last Admin: 05/02/17 05:34 Dose: 100 mls/hr Sodium Chloride (Sodium Chloride 0.9%) 1,000 mls @ 125 mls/hr IV .Q8H [facility] Last Admin: 05/01/17 18:09 Dose: 125 mls/hr Potassium Chloride (Potassium Chloride 10 Meq/100 Ml) 10 meq in 100 mls @ 50 mls/hr IVPB Q2H [facility] Stop: 05/02/17 14:29 Last Admin: 05/02/17 11:37 Dose: 50 mls/hr Lidocaine (Lidoderm) 1 ea TD 2200 [facility] Last Admin: 05/01/17 22:00 Dose: Not Given Metoprolol Tartrate (Lopressor) 25 mg PO BID [facility] Last Admin: 05/02/17 10:35 Dose: 25 mg Mirtazapine (Remeron) 15 mg PO HS [facility] Last Admin: 05/01/17 21:46 Dose: 15 mg Morphine Sulfate (Morphine) 4 mg IVP Q3H PRN PRN Reason: Pain, severe (8-10) Last Admin: 05/02/17 12:04 Dose: 4 mg Nicotine (Nicoderm Cq) 1 patch TD DAILY [facility] Last Admin: 05/02/17 11:38 Dose: 1 patch Pantoprazole Sodium (Protonix Inj) 40 mg IVP Q12 [facility] Last Admin: 05/02/17 10:51 Dose: 40 mg Tamsulosin HCl (Flomax) 0.4 mg PO DAILY [facility] Last Admin: 05/02/17 10:36 Dose: 0.4 mg - Labs Labs: 05/02/17 06:20 05/02/17 06:20 PT 12.5 SECONDS (9.4-12.5) 04/09/17 15:35 INR 1.09 (0.93-1.08) H 04/09/17 15:35 APTT 32.7 Seconds (25.1-36.5) 04/09/17 15:35 Assessment and Plan - Assessment and Plan (Free Text) Plan: 61 yr male w/ history of CVA L side deficits, multiple lou, restless leg syndrome, chronic back pain, & L knee surgery. Pt admitted to [facility] for generalized abdominal pain. Pt was taking percocet at home for chronic back pain and began to feel abdominal pain relieved by self-induced emesis. On 04/10 pt was diagnosed w. super mesenteric artery syndrome s/p gastrojejunostomy on . Pt's daughter Peggy is requesting a second surgical opinion with Dr. Caldwell. Second opinion by Javi provided. He believed current surgical team plan is appropriate. Treatment for C. glabrata fungemia onboard. Today, pt is seen resting in bed without any distress. Good appetite noted. Denies any fever, chills, chest pain, shortness of breath, diarrhea, constipation, or urinary problems.pt is seen and examined at bed side . looking comfortable , agreed all above , chart , meds and labs noted , will f/u
--- NOTE | 2017-05-01 18:26 | CP.PCM.PN ---
Subjective - Date & Time of Evaluation Date of Evaluation: 05/01/17 Time of Evaluation: 11:00 - Subjective Subjective: Patient reports feeling thirsty; had BM; still with copious NG suction drainage; Objective - Vital Signs/Intake and Output Vital Signs (last 24 hours): Temp Pulse Resp BP Pulse Ox 97 F L 93 H 16 88/50 L 99 05/01/17 08:11 05/01/17 08:11 05/01/17 08:11 05/01/17 17:21 05/01/17 08:11 Intake and Output: 05/01/17 05/01/17 06:59 18:59 Intake Total 180 680 Output Total 725 600 Balance -545 80 - Medications Medications: Current Medications Albuterol/Ipratropium (Duoneb 3 Mg/0.5 Mg (3 Ml) Ud) 3 ml IH [id number] [facility] Last Admin: 05/01/17 13:21 Dose: Not Given Benzocaine/Menthol (Cepacol Sore Throat) 1 john MT Q2H PRN PRN Reason: Sore Throat Last Admin: 04/30/17 22:22 Dose: 1 john Carbamazepine (Tegretol) 100 mg PO BID [facility] PRN Reason: Protocol Last Admin: 05/01/17 18:08 Dose: 100 mg Docusate Sodium (Colace Liquid) 100 mg PO TID [facility] Last Admin: 05/01/17 17:21 Dose: Not Given Folic Acid (Folic Acid) 1 mg PO DAILY [facility] Last Admin: 05/01/17 09:53 Dose: 1 mg Gabapentin (Neurontin) 300 mg PO HS [facility] PRN Reason: Protocol Last Admin: 04/30/17 21:04 Dose: 300 mg Heparin Sodium (Porcine) (Heparin) 5,000 units SC Q12 [facility] PRN Reason: Protocol Last Admin: 05/01/17 09:50 Dose: 5,000 units Micafungin Sodium 100 mg/ (Sodium Chloride) 100 mls @ 100 mls/hr IV DAILY [facility] PRN Reason: Protocol Stop: 05/18/17 13:01 Last Admin: 05/01/17 09:43 Dose: 100 mls/hr Meropenem/Sodium Chloride (Meropenem 1g/Ns 100ml Ivpb) 1 gm in 100 mls @ 100 mls/hr IVPB Q8 [facility] PRN Reason: Protocol Stop: 05/06/17 23:01 Last Admin: 05/01/17 14:11 Dose: 100 mls/hr Sodium Chloride (Sodium Chloride 0.9%) 1,000 mls @ 125 mls/hr IV .Q8H [facility] Last Admin: 05/01/17 18:09 Dose: 125 mls/hr Lidocaine (Lidoderm) 1 ea TD 2200 [facility] Last Admin: 04/30/17 21:32 Dose: Not Given Metoprolol Tartrate (Lopressor) 25 mg PO BID [facility] Last Admin: 05/01/17 17:21 Dose: Not Given Mirtazapine (Remeron) 15 mg PO HS [facility] Last Admin: 04/30/17 21:04 Dose: 15 mg Morphine Sulfate (Morphine) 4 mg IVP Q3H PRN PRN Reason: Pain, severe (8-10) Last Admin: 05/01/17 15:52 Dose: 4 mg Nicotine (Nicoderm Cq) 1 patch TD DAILY [facility] Last Admin: 05/01/17 09:53 Dose: 1 patch Pantoprazole Sodium (Protonix Inj) 40 mg IVP Q12 [facility] Last Admin: 05/01/17 09:49 Dose: 40 mg Tamsulosin HCl (Flomax) 0.4 mg PO DAILY [facility] Last Admin: 05/01/17 09:49 Dose: 0.4 mg - Labs Labs: 05/01/17 06:50 05/01/17 06:50 PT 12.5 SECONDS (9.4-12.5) 04/09/17 15:35 INR 1.09 (0.93-1.08) H 04/09/17 15:35 APTT 32.7 Seconds (25.1-36.5) 04/09/17 15:35 - Constitutional Appears: Non-toxic, No Acute Distress - Eye Exam Eye Exam: absent: Scleral icterus - ENT Exam ENT Exam: Mucous Membranes Moist - Respiratory Exam Respiratory Exam: Clear to Ausculation Bilateral. absent: Respiratory Distress - Cardiovascular Exam Cardiovascular Exam: RRR, +S1, +S2 - GI/Abdominal Exam GI & Abdominal Exam: Distended, Soft Additional comments: mildly tender; - Extremities Exam Additional comments: no leg edema; - Neurological Exam Neurological Exam: Alert, Awake - Psychiatric Exam Psychiatric exam: Normal Mood. absent: Agitated - Skin Skin Exam: Warm. absent: Cyanosis Assessment and Plan (1) Hyponatremia Assessment & Plan: Improved with IVF; continue with NS at 125 cc/hr; may need to increase if still signs of volume depletion; no need for strict PO fluid restriction though 3L should be adequate; mild hypokalemia, replenishing potassium prn (giving another 20 meq KCl today); Status: Acute (2) Volume depletion, gastrointestinal loss Status: Acute (3) Azotemia Assessment & Plan: Improving after decreasing protein calorie intake from tube feeds (rate lowered from 80 cc/hr to 30 cc/hr, corresponding to 3.7 g/kg -> 1.4 g/kg daily protein intake); increased IVF also helpful; continue same for now; Status: Acute (4) Increased anion gap metabolic acidosis Status: Resolved (5) SIRS (systemic inflammatory response syndrome) Status: Acute (6) Metabolic alkalosis Assessment & Plan: Secondary to profound NG losses; agree with changing PPI to IV; if alkalosis continues to worsen, will give dose of diamox (but will need more aggressive K supplementation); Status: Acute
[2017-05-01] MEDS: Lidocaine 5% Patch TD SCH (22:00)
[2017-05-02] MEDS: Morphine 4 mg/ml ISec IVP PRN ×7 (01:28→23:31)
--- NOTE | 2017-05-02 02:15 | PN ---
DATE: PULMONARY PROGRESS NOTE REFERRING PHYSICIAN: Dr. Radha Lantigua. SUBJECTIVE: He is sitting up in a bed, son is at bedside. Drinking fluids, and has a nasogastric tube, mostly it is intermittently being suctioned. Patient is DNR and DNI. He is offered re-do surgery, I believe he is scheduled for . High risk for aspiration. Not much cough today. No nausea, no abdominal pain. No dysuria. No leg pain or leg swelling. Has a large bowel movement. OBJECTIVE: GENERAL: In no acute distress. VITAL SIGNS: Temperature is 98, heart rate is 93, respiratory rate is 16, blood pressure 88/50, pulse ox 99% on 2 L nasal cannula. HEENT: Moist mucous membrane. No ulcer or thrush noted. NECK: Supple. No JVD. LUNGS: Have a few crackles at the bases. HEART: S1 and S2. ABDOMEN: Positive bowel sounds. J-tube looks okay. EXTREMITIES: There is no edema. NEUROLOGIC: Awake and alert, follows simple command. MEDICATIONS: He is on Cepacol lozenges q.2 hours p.r.n., Colace 100 mg, DuoNeb q.6 hours p.r.n., Flomax 0.4 mg daily, folic acid 1 mg daily, heparin 5000 units subcu q.12 hours, Lidoderm patch to the affected area, metoprolol tartrate 25 mg twice a day, meropenem 1 g IV q.8 hours, micafungin 100 mg daily, morphine 4 mg q.3 hours, Neurontin 300 mg at bedtime, Nicoderm patch daily, Protonix 40 mg IV q.12 hours, Remeron 15 mg at bedtime, IV fluid normal saline 125 mL per hour, Tegretol 100 mg twice a day. LABORATORY DATA: Shows hemoglobin 8.3, hematocrit 25.9, WBC 13.0, platelet count is 515. Sodium 135, potassium 3.5, chloride 95, bicarbonate 33, BUN 36, creatinine 0.5, glucose 101, calcium is 8.8. AST 31, ALT 16, alk phos is 122, albumin is 2.9. Last urine culture has Klebsiella pneumoniae. Blood cultures have been negative. IMPRESSION AND PLAN: Superior mesenteric artery syndrome requiring gastrojejunostomy, which is nonfunctional, requiring J-tube placement. History of seizure disorder, aspiration pneumonia, electrolyte imbalance, renal insufficiency, malnutrition, history of stroke in the past, fungemia. Overall poor prognosis. Spoke to the patient's son. On the question-answer, patient is noncompliant with the instruction, keeps drinking fluids, otherwise wants to leave and go home and become DNR and hospice care. as long as he can drink, he will go ahead for surgery. Pulmonary point of view, high risk for aspiration because of gastric outlet obstruction. Keep head elevated at 45 degrees. Also with urinary tract infection. Continue antibiotics as per Infectious Disease. Gastric prophylaxis. Supplemental oxygen. Keep nasogastric tube to suction. Follow up labs in the morning. Thank you and we will follow with you. Velvet Castillo MD
[2017-05-02] MEDS: Albuterol-Ipratrop 3 mg / 0.5 (3 ml) UD IH SCH ×4 (02:31→20:25)
[2017-05-02] MEDS: Meropenem 1g/NS 100mL IVPB 1 GM/100 ML PIGGYBACK IVPB SCH ×3 (05:34→21:37)
[2017-05-02 06:51] LABS: BASO # 0.02 K/mm3 (0.0-2.0); BASO % 0.2 % (0.0-3.0); EOS # 0.2 (0.0-0.7); EOS % 2.3 % (1.5-5.0); GRAN # 6.81 (1.4-6.5); GRAN % 68.3 % (50.0-68.0); HEMOGLOBIN 8.1 g/dL (14.0-18.0); LYMPH % 20.5 % (22.0-35.0); MEAN CELL VOLUME 94.5 fl (80.0-105.0); MEAN CORPUSCULAR HEMOGLOBIN 29.9 pg (25.0-35.0); MEAN CORPUSCULAR HGB CONC 31.6 g/dl (31.0-37.0); MEAN PLATELET VOLUME 9.5 fl (7.0-11.0); MONO # 0.9 (0.1-0.6); MONO % 8.7 % (1.0-6.0); RBC 2.71 10^6/uL (3.5-6.1); RED CELL DISTRIBUTION WIDTH 17.3 % (11.5-14.5)
[2017-05-02 07:49] LABS: ALBUMIN 2.7 g/dL (3.0-4.8); ALT/SGPT 28 U/L (7-56); AST/SGOT 23 U/L (17-59); BLOOD UREA NITROGEN 19 mg/dL (7-21); CALCIUM 8.8 mg/dL (8.4-10.5); GFR AFRICAN-AMERICAN > 60; GFR NON-AFRICAN AMERICAN > 60; MAGNESIUM 2.5 mg/dL (1.7-2.2)
--- NOTE | 2017-05-02 08:54 | CP.PCM.PN ---
Subjective - Date & Time of Evaluation Date of Evaluation: 05/02/17 Time of Evaluation: 08:51 - Subjective Subjective: General Surgery progress note for Dr. Toscano Patient seen and examined at bedside. No new complaints today, patient has passed two bowel movements overnight. Objective - Vital Signs/Intake and Output Vital Signs (last 24 hours): Temp Pulse Resp BP Pulse Ox 98 F 99 H 17 106/67 97 05/01/17 22:00 05/02/17 07:40 05/01/17 22:00 05/01/17 22:00 05/01/17 22:00 Intake and Output: 05/02/17 05/02/17 06:59 18:59 Intake Total 6420 Output Total 6300 Balance 120 - Medications Medications: Current Medications Albuterol/Ipratropium (Duoneb 3 Mg/0.5 Mg (3 Ml) Ud) 3 ml IH [id number] [facility] Last Admin: 05/02/17 07:41 Dose: 3 ml Benzocaine/Menthol (Cepacol Sore Throat) 1 john MT Q2H PRN PRN Reason: Sore Throat Last Admin: 04/30/17 22:22 Dose: 1 john Carbamazepine (Tegretol) 100 mg PO BID [facility] PRN Reason: Protocol Last Admin: 05/01/17 18:08 Dose: 100 mg Docusate Sodium (Colace Liquid) 100 mg PO TID [facility] Last Admin: 05/01/17 17:21 Dose: Not Given Folic Acid (Folic Acid) 1 mg PO DAILY [facility] Last Admin: 05/01/17 09:53 Dose: 1 mg Gabapentin (Neurontin) 300 mg PO HS [facility] PRN Reason: Protocol Last Admin: 05/01/17 21:46 Dose: 300 mg Heparin Sodium (Porcine) (Heparin) 5,000 units SC Q12 [facility] PRN Reason: Protocol Last Admin: 05/01/17 21:43 Dose: 5,000 units Micafungin Sodium 100 mg/ (Sodium Chloride) 100 mls @ 100 mls/hr IV DAILY [facility] PRN Reason: Protocol Stop: 05/18/17 13:01 Last Admin: 05/01/17 09:43 Dose: 100 mls/hr Meropenem/Sodium Chloride (Meropenem 1g/Ns 100ml Ivpb) 1 gm in 100 mls @ 100 mls/hr IVPB Q8 [facility] PRN Reason: Protocol Stop: 05/06/17 23:01 Last Admin: 05/02/17 05:34 Dose: 100 mls/hr Sodium Chloride (Sodium Chloride 0.9%) 1,000 mls @ 125 mls/hr IV .Q8H [facility] Last Admin: 05/01/17 18:09 Dose: 125 mls/hr Lidocaine (Lidoderm) 1 ea TD 2200 [facility] Last Admin: 05/01/17 22:00 Dose: Not Given Metoprolol Tartrate (Lopressor) 25 mg PO BID [facility] Last Admin: 05/01/17 17:21 Dose: Not Given Mirtazapine (Remeron) 15 mg PO HS [facility] Last Admin: 05/01/17 21:46 Dose: 15 mg Morphine Sulfate (Morphine) 4 mg IVP Q3H PRN PRN Reason: Pain, severe (8-10) Last Admin: 05/02/17 08:34 Dose: 4 mg Nicotine (Nicoderm Cq) 1 patch TD DAILY [facility] Last Admin: 05/01/17 09:53 Dose: 1 patch Pantoprazole Sodium (Protonix Inj) 40 mg IVP Q12 [facility] Last Admin: 05/01/17 21:46 Dose: 40 mg Tamsulosin HCl (Flomax) 0.4 mg PO DAILY [facility] Last Admin: 05/01/17 09:49 Dose: 0.4 mg - Labs Labs: 05/02/17 06:20 05/02/17 06:20 PT 12.5 SECONDS (9.4-12.5) 04/09/17 15:35 INR 1.09 (0.93-1.08) H 04/09/17 15:35 APTT 32.7 Seconds (25.1-36.5) 04/09/17 15:35 - Constitutional Appears: Well - Head Exam Head Exam: ATRAUMATIC, NORMAL INSPECTION, NORMOCEPHALIC - Eye Exam Eye Exam: EOMI, Normal appearance, PERRL Pupil Exam: NORMAL ACCOMODATION, PERRL - ENT Exam ENT Exam: Mucous Membranes Moist, Normal Exam - Neck Exam Neck Exam: Full ROM, Normal Inspection. absent: Lymphadenopathy - Respiratory Exam Respiratory Exam: Clear to Ausculation Bilateral, NORMAL BREATHING PATTERN - Cardiovascular Exam Cardiovascular Exam: REGULAR RHYTHM, +S1, +S2. absent: Murmur - GI/Abdominal Exam GI & Abdominal Exam: Soft, Normal Bowel Sounds. absent: Tenderness Additional comments: midline incision well approximated with antionette, healing well. G-tube in place @ 2cm at the skin - Extremities Exam Extremities Exam: Full ROM, Normal Capillary Refill, Normal Inspection. absent : Joint Swelling, Pedal Edema - Back Exam Back Exam: NORMAL INSPECTION - Neurological Exam Neurological Exam: Alert, Awake, CN II-XII Intact, Normal Gait, Oriented x3 - Psychiatric Exam Psychiatric exam: Normal Affect, Normal Mood - Skin Skin Exam: Dry, Intact, Normal Color, Warm Assessment and Plan - Assessment and Plan (Free Text) Assessment: 61yo M with SMA syndrome s/p Gastrojejunostomy POD 21 Plan: -electrolytes and WBC improving - normalized today -recommend K replacement - 3.5 today -cont NGT on cont suction -3 pitchers of water/day, patient may also have a small amount of fruit juice - had two cups of orange juice yesterday -cont NS IVF -PT as tolerated -may need GJ revision--possibly on if patient desires and pending repeat CT Scan. Patient and patient's family also considering home with hospice care. Will follow up their decision -Discussed with Dr. Toscano
--- NOTE | 2017-05-02 10:34 | PN ---
DATE: SUBJECTIVE: He is seen. CAT scan done yesterday is reviewed. Apparently, there is some not allowed at this time because it is still dilated. This might be released at later time in surgery. Time of surgery is for . Currently, he is being maintained with enteral nutrition through the feeding jejunostomy. Second opinion from obtain, I formal report, but second hand it seems like he agrees with planned surgery. At this time, we will probably repeat his study on Monday, make a final decision, but we are planning an operation on . Rashawn Toscano MD
[2017-05-02] MEDS: Micafungin 100 MG in Sodium Chloride 0.9% 100 ML IV SCH (10:37)
[2017-05-02 11:08] LABS: CREATININE,RANDOM URINE 57 mg/dL
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
[2017-05-02] MEDS: Sodium Chloride 0.9% 1,000 ML IV SCH (16:15)
[2017-05-02] MEDS: Benzocaine/Menthol (Cepacol) Lozenge MT SCH ×4 (16:15→23:45)
--- NOTE | 2017-05-02 16:47 | CP.PCM.PN ---
Subjective - Date & Time of Evaluation Date of Evaluation: 05/02/17 Time of Evaluation: 11:35 - Subjective Subjective: Comfortable, still feels weak, no vomiting, no nausea, no abdominal pain currently. No fevers. Objective - Vital Signs/Intake and Output Vital Signs (last 24 hours): Temp Pulse Resp BP Pulse Ox 98 F 99 H 17 106/67 97 05/01/17 22:00 05/02/17 07:40 05/01/17 22:00 05/01/17 22:00 05/01/17 22:00 Intake and Output: 05/02/17 05/02/17 06:59 18:59 Intake Total 6420 Output Total 6300 Balance 120 - Medications Medications: Current Medications Albuterol/Ipratropium (Duoneb 3 Mg/0.5 Mg (3 Ml) Ud) 3 ml IH [id number] [facility] Last Admin: 05/02/17 07:41 Dose: 3 ml Benzocaine/Menthol (Cepacol Sore Throat) 1 john MT Q2H PRN PRN Reason: Sore Throat Last Admin: 04/30/17 22:22 Dose: 1 john Carbamazepine (Tegretol) 100 mg PO BID [facility] PRN Reason: Protocol Last Admin: 05/01/17 18:08 Dose: 100 mg Docusate Sodium (Colace Liquid) 100 mg PO TID [facility] Last Admin: 05/01/17 17:21 Dose: Not Given Folic Acid (Folic Acid) 1 mg PO DAILY [facility] Last Admin: 05/01/17 09:53 Dose: 1 mg Gabapentin (Neurontin) 300 mg PO HS [facility] PRN Reason: Protocol Last Admin: 05/01/17 21:46 Dose: 300 mg Heparin Sodium (Porcine) (Heparin) 5,000 units SC Q12 [facility] PRN Reason: Protocol Last Admin: 05/01/17 21:43 Dose: 5,000 units Micafungin Sodium 100 mg/ (Sodium Chloride) 100 mls @ 100 mls/hr IV DAILY [facility] PRN Reason: Protocol Stop: 05/18/17 13:01 Last Admin: 05/01/17 09:43 Dose: 100 mls/hr Meropenem/Sodium Chloride (Meropenem 1g/Ns 100ml Ivpb) 1 gm in 100 mls @ 100 mls/hr IVPB Q8 [facility] PRN Reason: Protocol Stop: 05/06/17 23:01 Last Admin: 05/02/17 05:34 Dose: 100 mls/hr Sodium Chloride (Sodium Chloride 0.9%) 1,000 mls @ 125 mls/hr IV .Q8H [facility] Last Admin: 05/01/17 18:09 Dose: 125 mls/hr Lidocaine (Lidoderm) 1 ea TD 2200 [facility] Last Admin: 05/01/17 22:00 Dose: Not Given Metoprolol Tartrate (Lopressor) 25 mg PO BID [facility] Last Admin: 05/01/17 17:21 Dose: Not Given Mirtazapine (Remeron) 15 mg PO HS [facility] Last Admin: 05/01/17 21:46 Dose: 15 mg Morphine Sulfate (Morphine) 4 mg IVP Q3H PRN PRN Reason: Pain, severe (8-10) Last Admin: 05/02/17 08:34 Dose: 4 mg Nicotine (Nicoderm Cq) 1 patch TD DAILY [facility] Last Admin: 05/01/17 09:53 Dose: 1 patch Pantoprazole Sodium (Protonix Inj) 40 mg IVP Q12 [facility] Last Admin: 05/01/17 21:46 Dose: 40 mg Tamsulosin HCl (Flomax) 0.4 mg PO DAILY [facility] Last Admin: 05/01/17 09:49 Dose: 0.4 mg - Labs Labs: 05/02/17 06:20 05/02/17 06:20 PT 12.5 SECONDS (9.4-12.5) 04/09/17 15:35 INR 1.09 (0.93-1.08) H 04/09/17 15:35 APTT 32.7 Seconds (25.1-36.5) 04/09/17 15:35 - Constitutional Appears: Cachectic, Chronically Ill - Head Exam Head Exam: NORMAL INSPECTION - ENT Exam Additional comments: NGT in place - Neck Exam Neck Exam: absent: Meningismus - Respiratory Exam Respiratory Exam: Decreased Breath Sounds - Cardiovascular Exam Cardiovascular Exam: +S1, +S2 - GI/Abdominal Exam GI & Abdominal Exam: Soft. 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
[2017-05-02 16:50] LABS: OSMOLALITY,URINE 655 mosm/kg (300-1000)
[2017-05-02] MEDS ORDERED: Sodium Chloride 0.9% 1,000 ML IV STA (19:13)
[2017-05-02] MEDS: HYDROmorphone 0.5 mg/0.5 ml ISec IVP PRN (20:22)
--- NOTE | 2017-05-02 21:00 | CP.PCM.PN ---
Subjective - Date & Time of Evaluation Date of Evaluation: 05/02/17 Time of Evaluation: 12:00 - Subjective Subjective: Patient being given trial of holding NG suction; not really consuming liquid diet, stomach "uncomfortable" Objective - Vital Signs/Intake and Output Vital Signs (last 24 hours): Temp Pulse Resp BP Pulse Ox 97.6 F 76 18 76/46 L 95 05/02/17 16:00 05/02/17 16:00 05/02/17 16:00 05/02/17 16:00 05/02/17 16:00 - Medications Medications: Current Medications Albuterol/Ipratropium (Duoneb 3 Mg/0.5 Mg (3 Ml) Ud) 3 ml IH [id number] [facility] Last Admin: 05/02/17 20:25 Dose: 3 ml Benzocaine/Menthol (Cepacol Sore Throat) 1 john MT Q2H [facility] Last Admin: 05/02/17 18:08 Dose: Not Given Carbamazepine (Tegretol) 100 mg PO BID [facility] PRN Reason: Protocol Last Admin: 05/02/17 18:09 Dose: 100 mg Docusate Sodium (Colace Liquid) 100 mg PO TID [facility] Last Admin: 05/02/17 18:08 Dose: Not Given Folic Acid (Folic Acid) 1 mg PO DAILY [facility] Last Admin: 05/02/17 10:35 Dose: 1 mg Gabapentin (Neurontin) 300 mg PO HS [facility] PRN Reason: Protocol Last Admin: 05/01/17 21:46 Dose: 300 mg Heparin Sodium (Porcine) (Heparin) 5,000 units SC Q12 [facility] PRN Reason: Protocol Last Admin: 05/02/17 10:51 Dose: 5,000 units Hydromorphone HCl (Dilaudid) 0.5 mg IVP Q3H PRN PRN Reason: Pain, severe (8-10) Last Admin: 05/02/17 20:22 Dose: 0.5 mg Micafungin Sodium 100 mg/ (Sodium Chloride) 100 mls @ 100 mls/hr IV DAILY [facility] PRN Reason: Protocol Stop: 05/18/17 13:01 Last Admin: 05/02/17 10:37 Dose: 100 mls/hr Meropenem/Sodium Chloride (Meropenem 1g/Ns 100ml Ivpb) 1 gm in 100 mls @ 100 mls/hr IVPB Q8 [facility] PRN Reason: Protocol Stop: 05/06/17 23:01 Last Admin: 05/02/17 14:53 Dose: 100 mls/hr Sodium Chloride (Sodium Chloride 0.9%) 1,000 mls @ 125 mls/hr IV .Q8H [facility] Last Admin: 05/02/17 16:15 Dose: 125 mls/hr Lidocaine (Lidoderm) 1 ea TD 2200 [facility] Last Admin: 05/01/17 22:00 Dose: Not Given Metoprolol Tartrate (Lopressor) 25 mg PO BID [facility] Last Admin: 05/02/17 18:08 Dose: 25 mg Mirtazapine (Remeron) 15 mg PO HS [facility] Last Admin: 05/01/17 21:46 Dose: 15 mg Morphine Sulfate (Morphine) 4 mg IVP Q3H PRN PRN Reason: Pain, severe (8-10) Last Admin: 05/02/17 18:08 Dose: 4 mg Nicotine (Nicoderm Cq) 1 patch TD DAILY [facility] Last Admin: 05/02/17 11:38 Dose: 1 patch Pantoprazole Sodium (Protonix Inj) 40 mg IVP Q12 [facility] Last Admin: 05/02/17 10:51 Dose: 40 mg Tamsulosin HCl (Flomax) 0.4 mg PO DAILY [facility] Last Admin: 05/02/17 10:36 Dose: 0.4 mg - Labs Labs: 05/02/17 06:20 05/02/17 06:20 PT 12.5 SECONDS (9.4-12.5) 04/09/17 15:35 INR 1.09 (0.93-1.08) H 04/09/17 15:35 APTT 32.7 Seconds (25.1-36.5) 04/09/17 15:35 - Constitutional Appears: Non-toxic, No Acute Distress, Cachectic - Eye Exam Eye Exam: absent: Scleral icterus - Respiratory Exam Respiratory Exam: Clear to Ausculation Bilateral. absent: Respiratory Distress - Cardiovascular Exam Cardiovascular Exam: RRR, +S1, +S2 - GI/Abdominal Exam GI & Abdominal Exam: Distended, Soft, Tenderness - Extremities Exam Additional comments: no leg edema; - Neurological Exam Neurological Exam: Alert, Awake - Psychiatric Exam Psychiatric exam: absent: Agitated - Skin Skin Exam: Warm. absent: Cyanosis Assessment and Plan (1) Hyponatremia Assessment & Plan: Resolving with aggressive IVF; continue NS at 125 cc/hr; continue to replenish K prn (20 meq KCl given today via IV route); Status: Acute (2) Volume depletion, gastrointestinal loss Assessment & Plan: Urine Na still low, hypotensive this afternoon; giving additional 1L NS bolus; Status: Acute (3) Azotemia Assessment & Plan: Resolving with lowered protein calorie intake and volume repletion; continue same rate of tube feeds with Vital AF 1.2 at 30 cc/hr; Status: Acute (4) Increased anion gap metabolic acidosis Status: Resolved (5) SIRS (systemic inflammatory response syndrome) Status: Acute (6) Metabolic alkalosis Assessment & Plan: Improved with changing PPI to IV route, continue same; Status: Acute
[2017-05-02] MEDS: Lidocaine 5% Patch TD SCH (21:39)
[2017-05-03] MEDS: Benzocaine/Menthol (Cepacol) Lozenge MT SCH ×13 (01:45→23:45)
[2017-05-03] MEDS: Albuterol-Ipratrop 3 mg / 0.5 (3 ml) UD IH SCH ×3 (02:30→14:01)
[2017-05-03] MEDS: Morphine 4 mg/ml ISec IVP PRN ×4 (02:33→14:16)
--- NOTE | 2017-05-03 02:47 | PN ---
DATE: SUBJECTIVE: Patient is seen and examined at the bedside, looking comfortable, still having NG tube on low suction. No abdominal pain. Getting feeding with J-tube. No nausea, vomiting, diarrhea. Still having back pain. No fever. No chills. PHYSICAL EXAMINATION: VITAL SIGNS: Temperature 98, pulse 99, respiratory rate 17, blood pressure 106/67, pulse oximetry 97. HEENT: Head: Normocephalic, atraumatic. Eyes: PERRLA. Extraocular muscles intact. Conjunctivae clear. Nose: Patent. Mucous membrane moist. NECK: Supple. No carotid bruit. No JVD or thyromegaly. CHEST: Bilaterally symmetrical. HEART: S1 and S2 positive. LUNGS: Clear to auscultation. ABDOMEN: Soft. Bowel sounds present. No organomegaly. EXTREMITIES: No edema. No cyanosis. NEUROLOGIC: Patient is awake and alert. Following simple commands. MEDICATIONS: Cepacol lozenges, Tegretol, Colace, folic acid, Neurontin, heparin, micafungin, meropenem, NS, Lidoderm, Lopressor, Remeron, morphine, Nicoderm, Protonix, Flomax. LABORATORY DATA: White blood cells 10.8, hemoglobin 8.1, hematocrit 25.6, platelets 505. Sodium 147, potassium 3.5, BUN 19, creatinine 0.4, glucose 94. ASSESSMENT AND PLAN: Mr. 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 Patient is getting Mycamine, day 12 of the 4 weeks. Patient was seen by sensitizer. ID, please read that sensitizer's note for endophthalmitis. Discussion done with Dr. Rojas, sensitizer. Nephrology is on the case also. Discussion done with Dr. Castillo. Rule out pneumonia, continue IV Merrem day, #3, and gave dose of vancomycin. For surgery on . Gastrointestinal and deep vein thrombosis prophylaxis. Repeat labs. We will follow up. Radha Lantigua MD [facility] # [id number]
[2017-05-03] MEDS: Sodium Chloride 0.9% 1,000 ML IV SCH ×2 (02:48→23:40)
[2017-05-03] MEDS: Meropenem 1g/NS 100mL IVPB 1 GM/100 ML PIGGYBACK IVPB SCH ×3 (05:40→23:41)
[2017-05-03 07:53] LABS: BASO # 0.03 K/mm3 (0.0-2.0); BASO % 0.4 % (0.0-3.0); EOS # 0.4 (0.0-0.7); EOS % 4.8 % (1.5-5.0); GRAN # 4.93 (1.4-6.5); GRAN % 63.5 % (50.0-68.0); HEMOGLOBIN 7.5 g/dL (14.0-18.0); LYMPH # 1.9 (1.2-3.4); LYMPH % 23.9 % (22.0-35.0); MEAN CELL VOLUME 93.7 fl (80.0-105.0); MEAN CORPUSCULAR HEMOGLOBIN 29.8 pg (25.0-35.0); MEAN CORPUSCULAR HGB CONC 31.8 g/dl (31.0-37.0); MEAN PLATELET VOLUME 8.3 fl (7.0-11.0); MONO # 0.6 (0.1-0.6); MONO % 7.4 % (1.0-6.0); RBC 2.52 10^6/uL (3.5-6.1); RED CELL DISTRIBUTION WIDTH 16.9 % (11.5-14.5); WHITE BLOOD COUNT 7.8 10^3/ul (4.5-11.0)
[2017-05-03 08:09] LABS: ALBUMIN 2.4 g/dL (3.0-4.8); ALT/SGPT 23 U/L (7-56); AST/SGOT 23 U/L (17-59); BLOOD UREA NITROGEN 11 mg/dL (7-21); CALCIUM 8.4 mg/dL (8.4-10.5); GFR AFRICAN-AMERICAN > 60; GFR NON-AFRICAN AMERICAN > 60; MAGNESIUM 2.1 mg/dL (1.7-2.2)
--- NOTE | 2017-05-03 08:41 | PN ---
DATE: 05/02/2017 PULMONARY PROGRESS NOTE REFERRING PHYSICIAN: Radha Lantigua MD SUBJECTIVE: He is lying in the bed, head at 45 degrees. Still has nasogastric tube, draining bilious drainage drinking fluids. No chest pain. Cough is better. Still has abdominal pain. No leg pain or leg swelling. OBJECTIVE: GENERAL: In no acute distress. VITAL SIGNS: Temp is 98, heart rate is 76, respiratory rate is 18, blood pressure is 89/59, pulse ox 94% on room air. HEENT: Moist mucous membrane. No ulcer or thrush noted. NECK: Supple. No JVD. LUNGS: Have a few scattered rhonchi and crackles. HEART: S1 and S2. ABDOMEN: Soft. Surgical area mildly tender. J-tube area looks okay. EXTREMITIES: There is no edema. NEUROLOGIC: Awake, alert. Follows simple command. MEDICATIONS: He is on Cepacol lozenges p.r.n. basis, Dilaudid 0.5 mg q. 3 hour p.r.n., DuoNeb q. 6 hour, Flomax 0.4 mg daily, folic acid 1 mg daily, heparin 5000 units subcu q. 12 hour, Lidoderm patch to the affected area, metoprolol tartrate 25 mg twice a day, meropenem 1 g IV q. 8 hour, morphine sulfate 4 mg IV q. 3 hour p.r.n., gabapentin 300 mg at bedtime, Nicoderm patch daily, Protonix 40 mg q. 12 hour, mirtazapine 15 mg at bedtime, IV fluid normal saline 125 mL per hour, Tegretol 100 mg twice a day. LABORATORY DATA: Shows hemoglobin 8.1, hematocrit 25.6, WBC 10, platelet is 505. Sodium 137, potassium 3.5, chloride 102, bicarbonate is 30, BUN 19, creatinine 0.4, glucose 94, calcium is 8.8, phosphorus 1.7, magnesium 2.5, albumin 2.7. Urine culture has Klebsiella pneumoniae. Repeat blood culture from 04/29/2017, there is no growth. IMPRESSION AND PLAN: Superior mesenteric artery syndrome, status post gastrojejunostomy, now has a stricture of the stoma, requiring J-tube, which is working well, history of seizure disorder, aspiration pneumonia, electrolyte imbalance, renal insufficiency, malnutrition, history of stroke in the remote past, fungemia, urinary tract infection. Case discussed with Dr. Lantigua. We will continue to encourage patient stay n.p.o. in the fear of aspiration with vomiting. Continue J-tube feeding, intravenous fluid, pain management, gastric prophylaxis, sequential compression devices to lower the extremities. Surgical and GI followup. Appreciated palliative care consult. Follow up labs in the morning. Tentatively scheduled for surgery on . Thank you and we will follow with you. Velvet Castillo MD
[2017-05-03] MEDS: Micafungin 100 MG in Sodium Chloride 0.9% 100 ML IV SCH (10:43)
--- NOTE | 2017-05-03 11:28 | CP.PCM.PN ---
Subjective - Date & Time of Evaluation Date of Evaluation: 05/03/17 Time of Evaluation: 11:28 - Subjective Subjective: Surgery: Dr. Toscano Patient lethargic this am, flat affect. He is stating he no longer wants any intervention. He wants to go home on hospice care. Objective - Vital Signs/Intake and Output Vital Signs (last 24 hours): Temp Pulse Resp BP Pulse Ox 97.6 F 86 18 96/62 L 95 05/02/17 16:00 05/03/17 10:42 05/02/17 16:00 05/03/17 10:42 05/02/17 16:00 Intake and Output: 05/03/17 05/03/17 06:59 18:59 Intake Total 1545 Output Total 30 Balance 1515 - Medications Medications: Current Medications Albuterol/Ipratropium (Duoneb 3 Mg/0.5 Mg (3 Ml) Ud) 3 ml IH [id number] [facility] Last Admin: 05/03/17 07:25 Dose: Not Given Benzocaine/Menthol (Cepacol Sore Throat) 1 john MT Q2H [facility] Last Admin: 05/03/17 08:00 Dose: Not Given Carbamazepine (Tegretol) 100 mg PO BID [facility] PRN Reason: Protocol Last Admin: 05/03/17 10:41 Dose: 100 mg Docusate Sodium (Colace Liquid) 100 mg PO TID [facility] Last Admin: 05/03/17 10:43 Dose: 100 mg Folic Acid (Folic Acid) 1 mg PO DAILY [facility] Last Admin: 05/03/17 10:42 Dose: 1 mg Gabapentin (Neurontin) 300 mg PO HS [facility] PRN Reason: Protocol Last Admin: 05/02/17 21:32 Dose: 300 mg Heparin Sodium (Porcine) (Heparin) 5,000 units SC Q12 [facility] PRN Reason: Protocol Last Admin: 05/03/17 10:42 Dose: 5,000 units Hydromorphone HCl (Dilaudid) 0.5 mg IVP Q3H PRN PRN Reason: Pain, severe (8-10) Last Admin: 05/02/17 20:22 Dose: 0.5 mg Micafungin Sodium 100 mg/ (Sodium Chloride) 100 mls @ 100 mls/hr IV DAILY [facility] PRN Reason: Protocol Stop: 05/18/17 13:01 Last Admin: 05/03/17 10:43 Dose: 100 mls/hr Meropenem/Sodium Chloride (Meropenem 1g/Ns 100ml Ivpb) 1 gm in 100 mls @ 100 mls/hr IVPB Q8 [facility] PRN Reason: Protocol Stop: 05/06/17 23:01 Last Admin: 05/03/17 05:40 Dose: 100 mls/hr Sodium Chloride (Sodium Chloride 0.9%) 1,000 mls @ 125 mls/hr IV .Q8H [facility] Last Admin: 05/03/17 02:48 Dose: 125 mls/hr Lidocaine (Lidoderm) 1 ea TD 2200 [facility] Last Admin: 05/02/17 21:39 Dose: Not Given Metoprolol Tartrate (Lopressor) 25 mg PO BID [facility] Last Admin: 05/03/17 10:42 Dose: 25 mg Mirtazapine (Remeron) 15 mg PO HS [facility] Last Admin: 05/02/17 22:21 Dose: 15 mg Morphine Sulfate (Morphine) 4 mg IVP Q3H PRN PRN Reason: Pain, severe (8-10) Last Admin: 05/03/17 11:08 Dose: 4 mg Nicotine (Nicoderm Cq) 1 patch TD DAILY [facility] Last Admin: 05/03/17 11:08 Dose: 1 patch Pantoprazole Sodium (Protonix Inj) 40 mg IVP Q12 [facility] Last Admin: 05/03/17 10:43 Dose: 40 mg Tamsulosin HCl (Flomax) 0.4 mg PO DAILY [facility] Last Admin: 05/03/17 10:51 Dose: 0.4 mg - Labs Labs: 05/03/17 07:45 05/03/17 07:45 PT 12.5 SECONDS (9.4-12.5) 04/09/17 15:35 INR 1.09 (0.93-1.08) H 04/09/17 15:35 APTT 32.7 Seconds (25.1-36.5) 04/09/17 15:35 - Constitutional Appears: Cachectic, Chronically Ill - Head Exam Additional comments: temporal wasting - Eye Exam Eye Exam: EOMI, Normal appearance - ENT Exam ENT Exam: Mucous Membranes Moist - Respiratory Exam Respiratory Exam: NORMAL BREATHING PATTERN. absent: Respiratory Distress - Cardiovascular Exam Cardiovascular Exam: REGULAR RHYTHM. absent: Tachycardia Assessment and Plan - Assessment and Plan (Free Text) Assessment: 61yo M with SMA syndrome s/p Gastrojejunostomy POD 22 Plan: -palliative care on board, will come discuss further options today -discuss with family further goals of care -OR for revision pending patient decision -cont current medical treatment -Discussed with Dr. Evetron Art PGY3
[2017-05-03] MEDS ORDERED: Potassium & Sodium Phosphate PO SCH (11:45)
[2017-05-03] MEDS ORDERED: Potassium Phosphate 15 MMOLE in Sodium Chloride 0.9% 250 ML IVPB ONE (11:49)
--- NOTE | 2017-05-03 13:28 | CP.PCM.PN ---
Subjective - Date & Time of Evaluation Date of Evaluation: 05/03/17 Time of Evaluation: 10:00 - Subjective Subjective: Alert, oriented. Complaining of abdominal pain. NG clamped, tolerating liquids Objective - Vital Signs/Intake and Output Vital Signs (last 24 hours): Temp Pulse Resp BP Pulse Ox 97.8 F 86 18 96/62 L 95 05/03/17 07:30 05/03/17 10:42 05/03/17 07:30 05/03/17 10:42 05/03/17 07:30 Intake and Output: 05/03/17 05/03/17 06:59 18:59 Intake Total 1545 Output Total 30 Balance 1515 - Medications Medications: Current Medications Albuterol/Ipratropium (Duoneb 3 Mg/0.5 Mg (3 Ml) Ud) 3 ml IH [id number] [facility] Last Admin: 05/03/17 07:25 Dose: Not Given Benzocaine/Menthol (Cepacol Sore Throat) 1 john MT Q2H [facility] Last Admin: 05/03/17 08:00 Dose: Not Given Carbamazepine (Tegretol) 100 mg PO BID [facility] PRN Reason: Protocol Last Admin: 05/03/17 10:41 Dose: 100 mg Docusate Sodium (Colace Liquid) 100 mg PO TID [facility] Last Admin: 05/03/17 10:43 Dose: 100 mg Folic Acid (Folic Acid) 1 mg PO DAILY [facility] Last Admin: 05/03/17 10:42 Dose: 1 mg Gabapentin (Neurontin) 300 mg PO HS [facility] PRN Reason: Protocol Last Admin: 05/02/17 21:32 Dose: 300 mg Heparin Sodium (Porcine) (Heparin) 5,000 units SC Q12 [facility] PRN Reason: Protocol Last Admin: 05/03/17 10:42 Dose: 5,000 units Hydromorphone HCl (Dilaudid) 0.5 mg IVP Q3H PRN PRN Reason: Pain, severe (8-10) Last Admin: 05/02/17 20:22 Dose: 0.5 mg Meropenem/Sodium Chloride (Meropenem 1g/Ns 100ml Ivpb) 1 gm in 100 mls @ 100 mls/hr IVPB Q8 [facility] PRN Reason: Protocol Stop: 05/06/17 23:01 Last Admin: 05/03/17 05:40 Dose: 100 mls/hr Sodium Chloride (Sodium Chloride 0.9%) 1,000 mls @ 125 mls/hr IV .Q8H [facility] Last Admin: 05/03/17 02:48 Dose: 125 mls/hr Potassium Phosphate 15 mmole/ (Sodium Chloride) 255 mls @ 42.5 mls/hr IVPB ONCE ONE Stop: 05/03/17 17:48 Last Admin: 05/03/17 12:42 Dose: 42.5 mls/hr Lidocaine (Lidoderm) 1 ea TD 2200 [facility] Last Admin: 05/02/17 21:39 Dose: Not Given Metoprolol Tartrate (Lopressor) 25 mg PO BID [facility] Last Admin: 05/03/17 10:42 Dose: 25 mg Mirtazapine (Remeron) 15 mg PO HS [facility] Last Admin: 05/02/17 22:21 Dose: 15 mg Morphine Sulfate (Morphine) 4 mg IVP Q3H PRN PRN Reason: Pain, severe (8-10) Last Admin: 05/03/17 11:08 Dose: 4 mg Nicotine (Nicoderm Cq) 1 patch TD DAILY [facility] Last Admin: 05/03/17 11:08 Dose: 1 patch Pantoprazole Sodium (Protonix Inj) 40 mg IVP Q12 [facility] Last Admin: 05/03/17 10:43 Dose: 40 mg Potassium Phos/Sodium Phos (Neutra-Phos) 1 pkt PO BID [facility] Tamsulosin HCl (Flomax) 0.4 mg PO DAILY [facility] Last Admin: 05/03/17 10:51 Dose: 0.4 mg - Labs Labs: 05/03/17 07:45 05/03/17 07:45 PT 12.5 SECONDS (9.4-12.5) 04/09/17 15:35 INR 1.09 (0.93-1.08) H 04/09/17 15:35 APTT 32.7 Seconds (25.1-36.5) 04/09/17 15:35 - Constitutional Appears: Cachectic, Chronically Ill - Eye Exam Eye Exam: Normal appearance, PERRL - ENT Exam ENT Exam: Mucous Membranes Moist, Normal Oropharynx - Cardiovascular Exam Cardiovascular Exam: REGULAR RHYTHM, +S1, +S2 - GI/Abdominal Exam GI & Abdominal Exam: Soft, Tenderness Additional comments: NG clamped - Extremities Exam Extremities Exam: Normal Capillary Refill - Back Exam Back Exam: NORMAL INSPECTION - Neurological Exam Neurological Exam: Alert, Oriented x3 - Skin Skin Exam: Dry, Pallor Assessment and Plan - Assessment and Plan (Free Text) Assessment: 61 year old male with history of CVA who was admitted with SMA syndrome, malnutrition, nausea, vomiting , s/p gastojejunostomy, partial obstruction The patient has decided that he does not want to proceed with surgical revision of gastrojejunostomy. The patient states that he is tired of being hospitalized and that he just wants to be comfortable. He understands that his progenies is guarded to poor. He asked about transitioning to hospice care. Hospice services discussed at length. Questions answered. The patient states he wants hospice care. We discussed feasibility of his family caring for him at home or whether better to be cared for in a facility. Suggested that we include his children in these discussions. samanta Woods daughter met with myself and MAYLIN Yang. We discussed hospice care at length. Patient states he would rather go home with hospice care. Daughter understands her father's wishes but having hard time accepting the reality of situation. Family given hospice care options which they will review. Will reconvene with family tomorrow to proceed with plans for hospice care. Psychosocial support given Time spent with patient and family in goals of care and hospice discussions, 45 minutes Plan: Continue current medical treatment plan Hospice evaluation Palliative support in establishing goals of care
--- NOTE | 2017-05-03 15:14 | CP.PCM.PN ---
Subjective - Date & Time of Evaluation Date of Evaluation: 05/03/17 Time of Evaluation: 11:40 - Subjective Subjective: Chief Complaint: fatigue 61 yr male w/ history of CVA L side deficits, multiple lou, restless leg syndrome, chronic back pain, & L knee surgery. Pt admitted to [facility] for generalized abdominal pain. Pt was taking percocet at home for chronic back pain and began to feel abdominal pain relieved by self-induced emesis. On 04/10 pt was diagnosed w. super mesenteric artery syndrome s/p gastrojejunostomy on . Pt's daughter Peggy is requesting a second surgical opinion with Dr. Caldwell. Second opinion by Javi provided. He believed current surgical team plan is appropriate. Treatment for C. glabrata fungemia onboard. Today, pt is seen resting in bed without any distress. Patient is refusing to have anymore surgical interventions in his care. At the bedside meeting conducted with Hospice nurse, cattle care worker, and Peggy. Denies any fever, chills, chest pain, shortness of breath, diarrhea, constipation, or urinary problems. Objective - Vital Signs/Intake and Output Vital Signs (last 24 hours): Temp Pulse Resp BP Pulse Ox 97.8 F 86 18 96/62 L 95 05/03/17 07:30 05/03/17 10:42 05/03/17 07:30 05/03/17 10:42 05/03/17 07:30 Intake and Output: 05/03/17 05/03/17 06:59 18:59 Intake Total 1545 1320 Output Total 30 500 Balance 1515 820 - Medications Medications: Current Medications Benzocaine/Menthol (Cepacol Sore Throat) 1 john MT Q2H [facility] Last Admin: 05/03/17 08:00 Dose: Not Given Carbamazepine (Tegretol) 100 mg PO BID [facility] PRN Reason: Protocol Last Admin: 05/03/17 10:41 Dose: 100 mg Docusate Sodium (Colace Liquid) 100 mg PO TID [facility] Last Admin: 05/03/17 10:43 Dose: 100 mg Folic Acid (Folic Acid) 1 mg PO DAILY [facility] Last Admin: 05/03/17 10:42 Dose: 1 mg Gabapentin (Neurontin) 300 mg PO HS [facility] PRN Reason: Protocol Last Admin: 05/02/17 21:32 Dose: 300 mg Heparin Sodium (Porcine) (Heparin) 5,000 units SC Q12 [facility] PRN Reason: Protocol Last Admin: 05/03/17 10:42 Dose: 5,000 units Hydromorphone HCl (Dilaudid) 0.5 mg IVP Q3H PRN PRN Reason: Pain, severe (8-10) Last Admin: 05/02/17 20:22 Dose: 0.5 mg Meropenem/Sodium Chloride (Meropenem 1g/Ns 100ml Ivpb) 1 gm in 100 mls @ 100 mls/hr IVPB Q8 [facility] PRN Reason: Protocol Stop: 05/06/17 23:01 Last Admin: 05/03/17 05:40 Dose: 100 mls/hr Sodium Chloride (Sodium Chloride 0.9%) 1,000 mls @ 125 mls/hr IV .Q8H [facility] Last Admin: 05/03/17 02:48 Dose: 125 mls/hr Potassium Phosphate 15 mmole/ (Sodium Chloride) 255 mls @ 42.5 mls/hr IVPB ONCE ONE Stop: 05/03/17 17:48 Last Admin: 05/03/17 12:42 Dose: 42.5 mls/hr Lidocaine (Lidoderm) 1 ea TD 2200 [facility] Last Admin: 05/02/17 21:39 Dose: Not Given Metoprolol Tartrate (Lopressor) 25 mg PO BID [facility] Last Admin: 05/03/17 10:42 Dose: 25 mg Mirtazapine (Remeron) 15 mg PO HS [facility] Last Admin: 05/02/17 22:21 Dose: 15 mg Morphine Sulfate (Morphine) 4 mg IVP Q3H PRN PRN Reason: Pain, severe (8-10) Last Admin: 05/03/17 14:16 Dose: 4 mg Nicotine (Nicoderm Cq) 1 patch TD DAILY [facility] Last Admin: 05/03/17 11:08 Dose: 1 patch Ondansetron HCl (Zofran Inj) 4 mg IVP Q4H PRN PRN Reason: Nausea/Vomiting Pantoprazole Sodium (Protonix Inj) 40 mg IVP Q12 [facility] Last Admin: 05/03/17 10:43 Dose: 40 mg Potassium Phos/Sodium Phos (Neutra-Phos) 1 pkt PO BID [facility] Tamsulosin HCl (Flomax) 0.4 mg PO DAILY [facility] Last Admin: 05/03/17 10:51 Dose: 0.4 mg - Labs Labs: 05/03/17 07:45 05/03/17 07:45 PT 12.5 SECONDS (9.4-12.5) 04/09/17 15:35 INR 1.09 (0.93-1.08) H 04/09/17 15:35 APTT 32.7 Seconds (25.1-36.5) 04/09/17 15:35 - Constitutional Appears: Cachectic, Chronically Ill - Head Exam Head Exam: ATRAUMATIC, NORMAL INSPECTION, NORMOCEPHALIC - Eye Exam Eye Exam: EOMI, Normal appearance, PERRL Pupil Exam: NORMAL ACCOMODATION, PERRL Additional comments: corrective eyeglasses - ENT Exam ENT Exam: Mucous Membranes Moist Additional comments: R nare NGT, c/d/i, copious delgado bile - Neck Exam Neck Exam: Full ROM, Normal Inspection. absent: Lymphadenopathy - Respiratory Exam Respiratory Exam: Clear to Ausculation Bilateral, NORMAL BREATHING PATTERN - Cardiovascular Exam Cardiovascular Exam: REGULAR RHYTHM, +S1, +S2. absent: Murmur - GI/Abdominal Exam GI & Abdominal Exam: Soft, Tenderness, Normal Bowel Sounds Additional comments: peg site C/D/I. abdominal antionette MARK, C/D/I - Exam Additional comments: Condom catheter draining clear yellow - Extremities Exam Extremities Exam: Full ROM, Normal Capillary Refill Additional comments: L arm contracture / L lower extremity weakness. R upper arm PICC - Back Exam Back Exam: NORMAL INSPECTION - Neurological Exam Neurological Exam: Alert, Awake, Oriented x3 - Psychiatric Exam Psychiatric exam: Flat Affect, Normal Mood - Skin Skin Exam: Dry, Pallor, Warm Assessment and Plan (1) Hyponatremia Status: Acute (2) Alyssa glabrata infection Status: Acute (3) Azotemia Status: Acute (4) Electrolyte depletion Status: Acute (5) UTI due to Klebsiella species Status: Acute (6) Volume depletion, gastrointestinal loss Status: Acute (7) Partial small bowel obstruction Status: Ruled-out (8) Failure to thrive in adult Status: Acute (9) Anemia Status: Acute (10) Nausea and vomiting Status: Resolved (11) Hiccups Status: Resolved (12) SMAS (superior mesenteric artery syndrome) Status: Acute (13) Dehydration Status: Acute (14) Chronic back pain Status: Acute (15) Abdominal pain Status: Acute - Assessment and Plan (Free Text) Plan: Hospice & cattle care worker team discussing options for plan of care. Blood culture Candiada Glabrata (+) 04/17; Blood culture NEGATIVE 04/20 & 04/29. IV mycamine for 4 weeks. Peg tube in place. NG tube in place. Seizure precautions. VTE/GI prophlyaxis. Nicotine patch ordered. PT/OT on board. Diagnosis: SMA (ruled out opioid induced constipation & SBO). PT/OT onboard. Pain management: gabapentin, morphine IV, lidocaine, oxycodone 5mg tab q 4h Consults: GI - Dr. Ozuna Surgery - Dr. Toscano Neuro - Dr. Culp Pulelva - Dr. Diaz Cardio - Dr. Bey Psych - Dr. Conn ID - Dr. Mckenna Reviewed: CT abd/pelvis = NG tube & jejunostomy tube in place, oral contract throughout small bowel. constipation. improvement of lung bases. CXR = gaseous distension of bowel mid abdomen. NG tube placement 04/29. GI series w/ small bowel = suspicious for gastric outlet obstruction at the anastomosis, limited study CT abd/pelvis = contrast seen throughout small bowel & colon, no evidence of obstruction, small amount of extra luminar air in the pelvis which is no longer seen Xray SB = NEGATIVE obstruction ECHO = EF 55-60%, ECG = Sinus tachy, w/ PAC CT angio = small droplets of free air in the anterior pelvis, suspicious for bowel perforation, small infrarenal abd aortic aneurysm, no evidence of SMA, occlusion, stenosis CT abd/pelvis = WNL
[2017-05-03] MEDS: HYDROmorphone 0.5 mg/0.5 ml ISec IVP PRN ×3 (17:40→23:39)
[2017-05-03] MEDS: Potassium & Sodium Phosphate PO SCH (17:44)
--- NOTE | 2017-05-03 18:12 | CP.PCM.PN ---
Subjective - Date & Time of Evaluation Date of Evaluation: 05/03/17 Time of Evaluation: 12:20 - Subjective Subjective: Comfortable, not in distress. For OR Tomorrow, no fevers. Objective - Vital Signs/Intake and Output Vital Signs (last 24 hours): Temp Pulse Resp BP Pulse Ox 97.6 F 76 18 76/46 L 95 05/02/17 16:00 05/02/17 16:00 05/02/17 16:00 05/02/17 16:00 05/02/17 16:00 Intake and Output: 05/03/17 05/03/17 06:59 18:59 Intake Total 1545 Output Total 30 Balance 1515 - Medications Medications: Current Medications Albuterol/Ipratropium (Duoneb 3 Mg/0.5 Mg (3 Ml) Ud) 3 ml IH [id number] [facility] Last Admin: 05/03/17 07:25 Dose: Not Given Benzocaine/Menthol (Cepacol Sore Throat) 1 john MT Q2H [facility] Last Admin: 05/03/17 05:46 Dose: Not Given Carbamazepine (Tegretol) 100 mg PO BID [facility] PRN Reason: Protocol Last Admin: 05/02/17 18:09 Dose: 100 mg Docusate Sodium (Colace Liquid) 100 mg PO TID [facility] Last Admin: 05/02/17 18:08 Dose: Not Given Folic Acid (Folic Acid) 1 mg PO DAILY [facility] Last Admin: 05/02/17 10:35 Dose: 1 mg Gabapentin (Neurontin) 300 mg PO HS [facility] PRN Reason: Protocol Last Admin: 05/02/17 21:32 Dose: 300 mg Heparin Sodium (Porcine) (Heparin) 5,000 units SC Q12 [facility] PRN Reason: Protocol Last Admin: 05/02/17 21:32 Dose: 5,000 units Hydromorphone HCl (Dilaudid) 0.5 mg IVP Q3H PRN PRN Reason: Pain, severe (8-10) Last Admin: 05/02/17 20:22 Dose: 0.5 mg Micafungin Sodium 100 mg/ (Sodium Chloride) 100 mls @ 100 mls/hr IV DAILY [facility] PRN Reason: Protocol Stop: 05/18/17 13:01 Last Admin: 05/02/17 10:37 Dose: 100 mls/hr Meropenem/Sodium Chloride (Meropenem 1g/Ns 100ml Ivpb) 1 gm in 100 mls @ 100 mls/hr IVPB Q8 [facility] PRN Reason: Protocol Stop: 05/06/17 23:01 Last Admin: 05/03/17 05:40 Dose: 100 mls/hr Sodium Chloride (Sodium Chloride 0.9%) 1,000 mls @ 125 mls/hr IV .Q8H [facility] Last Admin: 05/03/17 02:48 Dose: 125 mls/hr Lidocaine (Lidoderm) 1 ea TD 2200 [facility] Last Admin: 05/02/17 21:39 Dose: Not Given Metoprolol Tartrate (Lopressor) 25 mg PO BID [facility] Last Admin: 05/02/17 18:08 Dose: 25 mg Mirtazapine (Remeron) 15 mg PO HS [facility] Last Admin: 05/02/17 22:21 Dose: 15 mg Morphine Sulfate (Morphine) 4 mg IVP Q3H PRN PRN Reason: Pain, severe (8-10) Last Admin: 05/03/17 08:12 Dose: 4 mg Nicotine (Nicoderm Cq) 1 patch TD DAILY [facility] Last Admin: 05/02/17 11:38 Dose: 1 patch Pantoprazole Sodium (Protonix Inj) 40 mg IVP Q12 [facility] Last Admin: 05/02/17 21:31 Dose: 40 mg Tamsulosin HCl (Flomax) 0.4 mg PO DAILY [facility] Last Admin: 05/02/17 10:36 Dose: 0.4 mg - Labs Labs: 05/03/17 07:45 05/03/17 07:45 PT 12.5 SECONDS (9.4-12.5) 04/09/17 15:35 INR 1.09 (0.93-1.08) H 04/09/17 15:35 APTT 32.7 Seconds (25.1-36.5) 04/09/17 15:35 - Constitutional Appears: Cachectic, Chronically Ill - Head Exam Head Exam: NORMAL INSPECTION - Neck Exam Neck Exam: absent: Meningismus - Respiratory Exam Respiratory Exam: Decreased Breath Sounds - Cardiovascular Exam Cardiovascular Exam: +S1, +S2 - GI/Abdominal Exam GI & Abdominal Exam: Soft. absent: Tenderness Assessment and Plan - Assessment and Plan (Free Text) Plan: Assessment sepsis from C. glabrata fungemia, R/O aspiration pneumonia SMA syndrome S/P gastrojejunostomy POD #23 severe electrolyte abnormalities, including hyponatermia HTN dyslipidemia CVA with left sided weakness chronic back pain S/P left knee surgery Plan continue Mycamine day 13 for at least 4 weeks; recommend Ophtho exam to rule out endophthalmitis Renal following for electrolyte abnormalities WBC count increased - repeat CT A/P showing possible right lower lobe developing aspiration pneumonia - we will continue IV Merrem day 4 and a gave a dose of IV Vanco for surgery tomorrow overall prognosis is very poor
--- NOTE | 2017-05-03 19:08 | CP.PCM.PN ---
Objective - Vital Signs/Intake and Output Vital Signs (last 24 hours): Temp Pulse Resp BP Pulse Ox 97.8 F 86 18 80/54 L 95 05/03/17 07:30 05/03/17 10:42 05/03/17 07:30 05/03/17 17:43 05/03/17 07:30 Intake and Output: 05/03/17 05/04/17 18:59 06:59 Intake Total 1320 Output Total 500 Balance 820 - Medications Medications: Current Medications Benzocaine/Menthol (Cepacol Sore Throat) 1 john MT Q2H [facility] Last Admin: 05/03/17 17:45 Dose: Not Given Carbamazepine (Tegretol) 100 mg PO BID [facility] PRN Reason: Protocol Last Admin: 05/03/17 17:41 Dose: 100 mg Docusate Sodium (Colace Liquid) 100 mg PO TID [facility] Last Admin: 05/03/17 17:45 Dose: Not Given Fentanyl (Duragesic) 1 patch TD Q72H [facility] Last Admin: 05/03/17 15:53 Dose: 1 patch Folic Acid (Folic Acid) 1 mg PO DAILY [facility] Last Admin: 05/03/17 10:42 Dose: 1 mg Gabapentin (Neurontin) 300 mg PO HS [facility] PRN Reason: Protocol Last Admin: 05/02/17 21:32 Dose: 300 mg Heparin Sodium (Porcine) (Heparin) 5,000 units SC Q12 [facility] PRN Reason: Protocol Last Admin: 05/03/17 10:42 Dose: 5,000 units Hydromorphone HCl (Dilaudid) 0.5 mg IVP Q3H PRN PRN Reason: Pain, severe (8-10) Last Admin: 05/03/17 17:40 Dose: 0.5 mg Meropenem/Sodium Chloride (Meropenem 1g/Ns 100ml Ivpb) 1 gm in 100 mls @ 100 mls/hr IVPB Q8 [facility] PRN Reason: Protocol Stop: 05/06/17 23:01 Last Admin: 05/03/17 15:30 Dose: 100 mls/hr Sodium Chloride (Sodium Chloride 0.9%) 1,000 mls @ 75 mls/hr IV .[id number] [facility] Lidocaine (Lidoderm) 1 ea TD 2200 [facility] Last Admin: 05/02/17 21:39 Dose: Not Given Metoprolol Tartrate (Lopressor) 25 mg PO BID [facility] Last Admin: 05/03/17 17:43 Dose: Not Given Mirtazapine (Remeron) 15 mg PO HS [facility] Last Admin: 05/02/17 22:21 Dose: 15 mg Nicotine (Nicoderm Cq) 1 patch TD DAILY [facility] Last Admin: 05/03/17 11:08 Dose: 1 patch Ondansetron HCl (Zofran Inj) 4 mg IVP Q4H PRN PRN Reason: Nausea/Vomiting Pantoprazole Sodium (Protonix Inj) 40 mg IVP Q12 [facility] Last Admin: 05/03/17 10:43 Dose: 40 mg Potassium Phos/Sodium Phos (Neutra-Phos) 1 pkt PO BID [facility] Last Admin: 05/03/17 17:44 Dose: Not Given Tamsulosin HCl (Flomax) 0.4 mg PO DAILY [facility] Last Admin: 05/03/17 10:51 Dose: 0.4 mg - Labs Labs: 05/03/17 07:45 05/03/17 07:45 PT 12.5 SECONDS (9.4-12.5) 04/09/17 15:35 INR 1.09 (0.93-1.08) H 04/09/17 15:35 APTT 32.7 Seconds (25.1-36.5) 04/09/17 15:35 Assessment and Plan (1) Hyponatremia Status: Acute (2) Volume depletion, gastrointestinal loss Status: Acute (3) Azotemia Status: Acute (4) Increased anion gap metabolic acidosis Status: Resolved (5) SIRS (systemic inflammatory response syndrome) Status: Acute (6) Metabolic alkalosis Status: Acute
--- NOTE | 2017-05-03 19:08 | PN ---
DATE: 05/03/2017 PULMONARY PROGRESS NOTE REFERRING PHYSICIAN: Dr. Lantigua. SUBJECTIVE: He is lying in the bed at 45 degree, having bowel movement, still thirsty, wants to drink. Not much cough, no sputum production. Still has abdominal pain. No leg pain or leg swelling. OBJECTIVE: GENERAL: In no acute distress. VITAL SIGNS: Temp is 98, heart rate is 86, respiratory rate is 18, blood pressure 96/62, pulse ox 95% on room air. HEENT: Moist mucous membranes. No ulcer or thrush noted. NECK: Supple. No JVD. Has a nasogastric tube and intermittent suction. LUNGS: Have few crackles at the bases. HEART: S1 and S2. ABDOMEN: Positive bowel sounds. Epigastric area, mild tenderness. EXTREMITIES: There is no edema. NEUROLOGIC: Awake, alert, follow simple commands. MEDICATIONS: He is on Colace 100 mg twice a day, Dilaudid 0.5 mg q. 3 hour p.r.n., DuoNeb q. 6 hour, Flomax 0.4 mg daily, folic acid 1 mg daily, heparin 5000 units subcu q. 12 hour, Lidoderm patch to the affected area, metoprolol 25 mg twice a day, meropenem 1 g IV q. 8 hour, morphine 4 mg q. 3 hour p.r.n., Neurontin 300 mg at bedtime, Neutra-Phos one pack twice a day, Nicoderm patch daily, potassium IV, also getting Protonix 40 mg twice a day, Remeron 50 mg at bedtime, IV fluid normal saline 125 mL per hour, Tegretol 100 mg daily. LABORATORY DATA: Shows hemoglobin 7.5, hematocrit is 23.6, WBC of 7.8, platelet is 432. Sodium 136, potassium 3.4, chloride 105, bicarbonate 26, BUN is 11, creatinine 0.4, calcium is 8.4, phosphorus 1.7, magnesium 2.1, alk phos is 79, albumin 2.4. Microbiology: Last urine culture has Klebsiella pneumoniae. Last blood culture from 04/29 is no growth. IMPRESSION AND PLAN: Superior mesenteric artery syndrome requiring gastrojejunostomy and also requiring jejunostomy tube placement, still have gastrojejunostomy obstruction requiring nasogastric tube and intermittent suction; history of seizure disorder; aspiration pneumonia; electrolyte imbalance; status post renal insufficiency; malnutrition; history of stroke in the remote past; fungemia; urinary tract infection, being followed by Infectious Diseases, on antibiotics. Palliative consult appreciated. Patient refused revision of gastrojejunostomy and distant risk, thinking about hospice. Daughter is at bedside. For now, continue jejunostomy tube feeding, bronchodilator, supplement oxygen, aspiration precaution, gastric prophylaxis, sequential compression device to lower extremity. We will replace electrolyte. If patient change mind he will need transfusion. Thank you and we will follow with you. Velvet Castillo MD
[2017-05-03] MEDS: Lidocaine 5% Patch TD SCH (22:00)
[2017-05-04] MEDS: Benzocaine/Menthol (Cepacol) Lozenge MT SCH ×8 (01:45→18:17)
[2017-05-04] MEDS: HYDROmorphone 0.5 mg/0.5 ml ISec IVP PRN ×4 (02:40→12:57)
[2017-05-04] MEDS: Meropenem 1g/NS 100mL IVPB 1 GM/100 ML PIGGYBACK IVPB SCH (05:53)
--- NOTE | 2017-05-04 07:03 | CP.PCM.PN ---
Subjective - Date & Time of Evaluation Date of Evaluation: 05/04/17 Time of Evaluation: 06:30 - Subjective Subjective: Patient seen and examined this morning at bedside. No acute events over night. No complaints. Palliative care on board. Objective - Vital Signs/Intake and Output Vital Signs (last 24 hours): Temp Pulse Resp BP Pulse Ox 97.8 F 86 18 80/54 L 95 05/03/17 07:30 05/03/17 10:42 05/03/17 07:30 05/03/17 17:43 05/03/17 07:30 Intake and Output: 05/04/17 05/04/17 06:59 18:59 Intake Total 4120 Output Total 4200 Balance -80 - Medications Medications: Current Medications Benzocaine/Menthol (Cepacol Sore Throat) [address] [facility] Last Admin: 05/04/17 05:53 Dose: Not Given Carbamazepine (Tegretol) [address] [facility] PRN Reason: Protocol Last Admin: 05/03/17 17:41 Dose: 100 mg Docusate Sodium (Colace Liquid) [address] [facility] Last Admin: 05/03/17 17:45 Dose: Not Given Fentanyl (Duragesic) [address] [facility] Last Admin: 05/03/17 15:53 Dose: 1 patch Folic Acid (Folic Acid) [address] [facility] Last Admin: 05/03/17 10:42 Dose: 1 mg Gabapentin (Neurontin) [address] [facility] PRN Reason: Protocol Last Admin: 05/03/17 21:11 Dose: 300 mg Heparin Sodium (Porcine) (Heparin) 5,000 units SC Q12 [facility] PRN Reason: Protocol Last Admin: 05/03/17 21:11 Dose: 5,000 units Hydromorphone HCl (Dilaudid) 0.5 mg IVP Q3H PRN PRN Reason: Pain, moderate (4-7) Last Admin: 05/04/17 05:53 Dose: 0.5 mg Meropenem/Sodium Chloride (Meropenem 1g/Ns 100ml Ivpb) 1 gm in 100 mls @ 100 mls/hr IVPB Q8 [facility] PRN Reason: Protocol Stop: 05/06/17 23:01 Last Admin: 05/04/17 05:53 Dose: 100 mls/hr Sodium Chloride (Sodium Chloride 0.9%) 1,000 mls @ 75 mls/hr IV .[id number] [facility] Last Admin: 05/03/17 23:40 Dose: 75 mls/hr Lidocaine (Lidoderm) [address] [facility] Last Admin: 05/03/17 22:00 Dose: Not Given Metoprolol Tartrate (Lopressor) [address] [facility] Last Admin: 05/03/17 17:43 Dose: Not Given Mirtazapine (Remeron) [address] [facility] Last Admin: 05/03/17 21:11 Dose: 15 mg Nicotine (Nicoderm Cq) [address] [facility] Last Admin: 05/03/17 11:08 Dose: 1 patch Ondansetron HCl (Zofran Inj) 4 mg IVP Q4H PRN PRN Reason: Nausea/Vomiting Pantoprazole Sodium (Protonix Inj) [address] [facility] Last Admin: 05/03/17 21:11 Dose: 40 mg Potassium Phos/Sodium Phos (Neutra-Phos) [address] [facility] Last Admin: 05/03/17 17:44 Dose: Not Given Tamsulosin HCl (Flomax) 0.[address] [facility] Last Admin: 05/03/17 10:51 Dose: 0.4 mg - Labs Labs: 05/03/17 07:45 05/03/17 07:45 PT 12.5 SECONDS (9.4-12.5) 04/09/17 15:35 INR 1.09 (0.93-1.08) H 04/09/17 15:35 APTT 32.7 Seconds (25.1-36.5) 04/09/17 15:35 - Constitutional Appears: No Acute Distress - Head Exam Head Exam: NORMOCEPHALIC - Eye Exam Eye Exam: Normal appearance - ENT Exam ENT Exam: Mucous Membranes Moist - Neck Exam Neck Exam: Normal Inspection - Respiratory Exam Respiratory Exam: NORMAL BREATHING PATTERN - Cardiovascular Exam Cardiovascular Exam: +S1, +S2 - GI/Abdominal Exam GI & Abdominal Exam: Soft - Neurological Exam Neurological Exam: Alert, Awake - Psychiatric Exam Psychiatric exam: Normal Mood - Skin Skin Exam: Normal Color, Warm Assessment and Plan - Assessment and Plan (Free Text) Assessment: Palliative care on board They are starting patient on Fentanyl 25 mcg transdermal patch. Continue Morphine IV as needed for breakthrough pain. No operative intervention planned at this point. Yosvany Prakash PGY2
[2017-05-04] MEDS ORDERED: Meropenem IV 1 gm in NS 50 ML IVPB SCH (07:37)
[2017-05-04] MEDS: Potassium & Sodium Phosphate PO SCH ×2 (09:19→18:30)
[2017-05-04] MEDS: Sodium Chloride 0.9% 1,000 ML IV SCH ×2 (09:32→09:33)
[2017-05-04] MEDS ORDERED: Sodium Chloride 0.9% 1,000 ML IV SCH ×2 (11:43→11:45)
[2017-05-04] MEDS ORDERED: HYDROmorphone 0.5 mg/0.5 ml ISec IVP PRN (15:58)
--- NOTE | 2017-05-04 16:33 | CP.PCM.PN ---
Subjective - Date & Time of Evaluation Date of Evaluation: 05/04/17 Time of Evaluation: 17:00 - Subjective Subjective: Alert. Intractable abdominal pain. NG to suction Objective - Vital Signs/Intake and Output Vital Signs (last 24 hours): Temp Pulse Resp BP Pulse Ox 97.6 F 87 18 81/55 L 97 05/04/17 07:33 05/04/17 09:18 05/04/17 07:33 05/04/17 09:18 05/04/17 07:33 Intake and Output: 05/04/17 05/04/17 06:59 18:59 Intake Total 4120 600 Output Total 4200 50 Balance -80 550 - Medications Medications: Current Medications Benzocaine/Menthol (Cepacol Sore Throat) 1 john MT Q2H [facility] Last Admin: 05/04/17 12:57 Dose: Not Given Carbamazepine (Tegretol) 100 mg PO BID [facility] PRN Reason: Protocol Last Admin: 05/04/17 09:22 Dose: 100 mg Docusate Sodium (Colace Liquid) 100 mg PO TID [facility] Last Admin: 05/04/17 13:02 Dose: 100 mg Fentanyl (Duragesic) 1 patch TD Q72H [facility] Last Admin: 05/03/17 15:53 Dose: 1 patch Folic Acid (Folic Acid) 1 mg PO DAILY [facility] Last Admin: 05/04/17 09:17 Dose: 1 mg Gabapentin (Neurontin) 300 mg PO HS [facility] PRN Reason: Protocol Last Admin: 05/03/17 21:11 Dose: 300 mg Hydromorphone HCl (Dilaudid) 0.5 mg IVP Q2H PRN PRN Reason: Pain, moderate (4-7) Meropenem (Merrem Iv 1 Gm Premix) 50 mls @ 100 mls/hr IVPB Q8 [facility] PRN Reason: Protocol Stop: 05/06/17 23:01 Last Admin: 05/04/17 13:28 Dose: 100 mls/hr Sodium Chloride (Sodium Chloride 0.9%) 1,000 mls @ 125 mls/hr IV .Q8H [facility] Last Admin: 05/04/17 13:27 Dose: 125 mls/hr Lidocaine (Lidoderm) 1 ea TD 2200 [facility] Last Admin: 05/03/17 22:00 Dose: Not Given Metoprolol Tartrate (Lopressor) 25 mg PO BID [facility] Last Admin: 05/04/17 09:18 Dose: Not Given Mirtazapine (Remeron) 15 mg PO HS [facility] Last Admin: 05/03/17 21:11 Dose: 15 mg Nicotine (Nicoderm Cq) 1 patch TD DAILY [facility] Last Admin: 05/04/17 09:19 Dose: 1 patch Ondansetron HCl (Zofran Inj) 4 mg IVP Q4H PRN PRN Reason: Nausea/Vomiting Pantoprazole Sodium (Protonix Inj) 40 mg IVP Q12 [facility] Last Admin: 05/04/17 09:19 Dose: 40 mg Potassium Phos/Sodium Phos (Neutra-Phos) 1 pkt PO BID [facility] Last Admin: 05/04/17 09:19 Dose: 1 pkt Tamsulosin HCl (Flomax) 0.4 mg PO DAILY [facility] Last Admin: 05/04/17 09:17 Dose: 0.4 mg - Labs Labs: 05/03/17 07:45 05/03/17 07:45 PT 12.5 SECONDS (9.4-12.5) 04/09/17 15:35 INR 1.09 (0.93-1.08) H 04/09/17 15:35 APTT 32.7 Seconds (25.1-36.5) 04/09/17 15:35 - Constitutional Appears: Cachectic, Chronically Ill - Head Exam Head Exam: NORMOCEPHALIC - Eye Exam Eye Exam: Normal appearance, PERRL - ENT Exam ENT Exam: Mucous Membranes Moist, Normal Oropharynx - Respiratory Exam Respiratory Exam: Decreased Breath Sounds, NORMAL BREATHING PATTERN - Cardiovascular Exam Cardiovascular Exam: REGULAR RHYTHM, +S1, +S2 - GI/Abdominal Exam GI & Abdominal Exam: Soft Additional comments: j tube patient - Extremities Exam Extremities Exam: Normal Capillary Refill - Skin Skin Exam: Dry, Pallor Assessment and Plan - Assessment and Plan (Free Text) Assessment: 61 year old male with history of SMA syndrome who is admitted with intractable vomiting, malnutrition, cachexia. intractable pain. He is s/p gastrojejunostomy , with J tube. The patient is alert. Daughter at bedside. Patient affirms that he wants to transition to hospice services. The patient has been accepted to [facility]. He is scheduled to be discharged later this evening. Psychosocial support provided. End of life counseling for family. Plan: [facility] As discussed with Lidia [facility]; Leave RU midline PICC NG tube to continuos suction Decrease enteral feeding to 30 cc hr Morphine sulfate liquid 10 mg po every 3 hours as needed Temazepam 15 mg po hs Flomax 0.4mg daily Tegretol 10 mg PO twice daily scheduled dosing
--- NOTE | 2017-05-04 17:09 | CP.PCM.PN ---
Subjective - Date & Time of Evaluation Date of Evaluation: 05/04/17 Time of Evaluation: 12:00 - Subjective Subjective: Patient put back to NG suction after developing worsening abd discomfort; having copious NG drainage; still complaining of thirst; Objective - Vital Signs/Intake and Output Vital Signs (last 24 hours): Temp Pulse Resp BP Pulse Ox 97.6 F 87 18 81/55 L 97 05/04/17 07:33 05/04/17 09:18 05/04/17 07:33 05/04/17 09:18 05/04/17 07:33 Intake and Output: 05/04/17 05/04/17 06:59 18:59 Intake Total 4120 600 Output Total 4200 50 Balance -80 550 - Medications Medications: Current Medications Benzocaine/Menthol (Cepacol Sore Throat) 1 john MT Q2H [facility] Last Admin: 05/04/17 16:08 Dose: Not Given Carbamazepine (Tegretol) 100 mg PO BID [facility] PRN Reason: Protocol Last Admin: 05/04/17 09:22 Dose: 100 mg Docusate Sodium (Colace Liquid) 100 mg PO TID [facility] Last Admin: 05/04/17 13:02 Dose: 100 mg Fentanyl (Duragesic) 1 patch TD Q72H [facility] Last Admin: 05/03/17 15:53 Dose: 1 patch Folic Acid (Folic Acid) 1 mg PO DAILY [facility] Last Admin: 05/04/17 09:17 Dose: 1 mg Gabapentin (Neurontin) 300 mg PO HS [facility] PRN Reason: Protocol Last Admin: 05/03/17 21:11 Dose: 300 mg Hydromorphone HCl (Dilaudid) 0.5 mg IVP Q2H PRN PRN Reason: Pain, moderate (4-7) Last Admin: 05/04/17 16:28 Dose: 0.5 mg Meropenem (Merrem Iv 1 Gm Premix) 50 mls @ 100 mls/hr IVPB Q8 [facility] PRN Reason: Protocol Stop: 05/06/17 23:01 Last Admin: 05/04/17 13:28 Dose: 100 mls/hr Sodium Chloride (Sodium Chloride 0.9%) 1,000 mls @ 125 mls/hr IV .Q8H [facility] Last Admin: 05/04/17 13:27 Dose: 125 mls/hr Lidocaine (Lidoderm) 1 ea TD 2200 [facility] Last Admin: 05/03/17 22:00 Dose: Not Given Metoprolol Tartrate (Lopressor) 25 mg PO BID [facility] Last Admin: 05/04/17 09:18 Dose: Not Given Mirtazapine (Remeron) 15 mg PO HS [facility] Last Admin: 05/03/17 21:11 Dose: 15 mg Nicotine (Nicoderm Cq) 1 patch TD DAILY [facility] Last Admin: 05/04/17 09:19 Dose: 1 patch Ondansetron HCl (Zofran Inj) 4 mg IVP Q4H PRN PRN Reason: Nausea/Vomiting Pantoprazole Sodium (Protonix Inj) 40 mg IVP Q12 [facility] Last Admin: 05/04/17 09:19 Dose: 40 mg Potassium Phos/Sodium Phos (Neutra-Phos) 1 pkt PO BID [facility] Last Admin: 05/04/17 09:19 Dose: 1 pkt Tamsulosin HCl (Flomax) 0.4 mg PO DAILY [facility] Last Admin: 05/04/17 09:17 Dose: 0.4 mg - Labs Labs: 05/03/17 07:45 05/03/17 07:45 PT 12.5 SECONDS (9.4-12.5) 04/09/17 15:35 INR 1.09 (0.93-1.08) H 04/09/17 15:35 APTT 32.7 Seconds (25.1-36.5) 04/09/17 15:35 - Constitutional Appears: No Acute Distress, Cachectic - Eye Exam Eye Exam: absent: Scleral icterus - Respiratory Exam Respiratory Exam: Clear to Ausculation Bilateral. absent: Respiratory Distress - Cardiovascular Exam Cardiovascular Exam: RRR, +S1, +S2 - GI/Abdominal Exam GI & Abdominal Exam: Distended, Soft, Tenderness - Extremities Exam Additional comments: no leg edema; - Neurological Exam Neurological Exam: Alert, Awake - Psychiatric Exam Psychiatric exam: absent: Agitated - Skin Skin Exam: Warm. absent: Cyanosis Assessment and Plan (1) Hyponatremia Status: Acute (2) Volume depletion, gastrointestinal loss Assessment & Plan: Persistent with hypotension in the setting of continuous massive NG losses ( more than his PO intake); while patient is electing for hospice care, should still keep intravascularly volume replete to decrease thirst sensation; -Increasing IVF to NS at 150 cc/hr Status: Acute (3) Azotemia Assessment & Plan: Not checking labs but should avoid excessive protein calorie feeds as this will cause recurrence of azotemia and produce an osmotic diuresis which will worsen his volume depletion; -Decreasing tube feeds to 40 cc/hr (is more than sufficient protein calorie intake for critically ill patient); Status: Acute (4) Increased anion gap metabolic acidosis Status: Resolved (5) SIRS (systemic inflammatory response syndrome) Status: Acute (6) Metabolic alkalosis Status: Acute - Assessment and Plan (Free Text) Assessment: Electrolyte Imbalance - Agree with PO K-phos, to help decrease sense of weakness ; supplementing K in IVF as well;
[2017-05-04] MEDS: Morphine 4 mg/ml ISec IVP PRN ×2 (18:31→21:01)
[2017-05-04 18:34] VITALS: BP 117/41; PULSE 60
[2017-05-04 18:53] VITALS: RESP 19; TEMP 97.8; O2SAT 96
--- NOTE | 2017-05-04 21:58 | PN ---
DATE: 05/04/2017 PULMONARY PROGRESS NOTE REFERRING PHYSICIAN: Dr. Lantigua. SUBJECTIVE: He is lying in the bed at 45 degrees. He has a nasogastric tube and intermittent suction, but failed taking p.o. intake, tolerating J-tube feeding well. No hematuria, no diarrhea, leg swelling reported. OBJECTIVE: GENERAL: In no acute distress. VITAL SIGNS: Temperature is 98, heart rate is 87, respiratory rate is 20, blood pressure 117/41, pulse ox 97% on room air, on nasal cannula. HEENT: Moist mucous membranes. Small oral cavity. He has a nasogastric tube. LUNGS: Has a scattered rhonchi. HEART: S1, S2. ABDOMEN: Positive bowel sounds. Incision site looks okay. J-tube site looks okay. EXTREMITIES: There is no edema. NEUROLOGIC: Awake, alert, follow simple commands. MEDICATIONS: Reviewed and noted. Cepacol lozenges p.r.n. being given, Duragesic patch q. 72 hours given, Flomax 0.4 mg daily, folic acid 1 mg daily, Lidoderm patch in affected area, metoprolol tartarate 25 mg twice a day given, meropenem 1 g IV q. 8 hours, morphine 4 mg q. 3 hours given, Neurontin 300 mg at bedtime, Neutra-Phos one pack twice a day, Nicoderm patch daily, Protonix 40 mg daily, Remeron 50 mg at bedtime, Tegretol 100 mg twice a day, Zofran on a p.r.n. basis. LABORATORY DATA: Reviewed and no new lab is available. Microbiology: No new blood culture available since yesterday. 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 Patient continue drink fluids and redo surgery for the gastrojejunostomy. Awaiting to be transferred to hospice for supportive care. Continue pain management, may continue nasogastric tube for intermittent suction, supplement oxygen, bronchodilator on a p.r.n. basis. Overall poor prognosis. Thank you and we will follow up with you. Velvet Castillo MD [facility] # [phone]
== END 2017-05-04 21:57 | disposition hospice, inpatient (51) | DRG 326 ==
LOC: ED 15:05 → ERH 21:04 → 2A 21:51 → 5RSO 04-08 08:05 → ICU 04-17 06:22 → 2A 04-18 18:05 → 5RSO 04-25 20:18 → 5RNO 05-04 09:55
PROVIDERS: ADMIT Internal Medicine; ATTEND Internal Medicine
PROC: 0D160ZA Bypass Stomach to Jejunum, Open Approach (ICD-10-PCS; 2017-04-10)
PROC: 0DJ64ZZ Inspection of Stomach, Percutaneous Endoscopic Approach (ICD-10-PCS; principal; 2017-04-10 10:00)
PROC: 3E0F7GC Introduction of Other Therapeutic Substance into Respiratory Tract, Via Natural or Artificial Opening (ICD-10-PCS; 2017-04-15)
PROC: 3E0436Z Introduction of Nutritional Substance into Central Vein, Percutaneous Approach (ICD-10-PCS; 2017-04-17)
PROC: 02HV33Z Insertion of Infusion Device into Superior Vena Cava, Percutaneous Approach (ICD-10-PCS; 2017-04-17)
PROC: B548ZZA Ultrasonography of Superior Vena Cava, Guidance (ICD-10-PCS; 2017-04-17)
PROC: 30233N1 Transfusion of Nonautologous Red Blood Cells into Peripheral Vein, Percutaneous Approach (ICD-10-PCS; 2017-04-17)
PROC: 0DHA3UZ Insertion of Feeding Device into Jejunum, Percutaneous Approach (ICD-10-PCS; 2017-04-20)
PROC: 0DB98ZX Excision of Duodenum, Via Natural or Artificial Opening Endoscopic, Diagnostic (ICD-10-PCS; 2017-04-20)
PROC: 3E0H76Z Introduction of Nutritional Substance into Lower GI, Via Natural or Artificial Opening (ICD-10-PCS; 2017-04-21)
DX: K55.1 Chronic vascular disorders of intestine (principal); J69.0 Pneumonitis due to inhalation of food and vomit; J96.91 Respiratory failure, unspecified with hypoxia; E43 Unspecified severe protein-calorie malnutrition; E87.4 Mixed disorder of acid-base balance; B37.7 Candidal sepsis; R64 Cachexia; E83.39 Other disorders of phosphorus metabolism; E87.1 Hypo-osmolality and hyponatremia; K31.5 Obstruction of duodenum; F11.20 Opioid dependence, uncomplicated; I69.354 Hemiplegia and hemiparesis following cerebral infarction affecting left non-dominant side; Z68.1 Body mass index [BMI] 19.9 or less, adult; K91.89 Other postprocedural complications and disorders of digestive system; K56.7 Ileus, unspecified; N39.0 Urinary tract infection, site not specified; K31.1 Adult hypertrophic pyloric stenosis; E86.0 Dehydration; G25.81 Restless legs syndrome; R62.7 Adult failure to thrive; D64.9 Anemia, unspecified; I10 Essential (primary) hypertension; E78.5 Hyperlipidemia, unspecified; K21.9 Gastro-esophageal reflux disease without esophagitis; I71.4 Abdominal aortic aneurysm, without rupture; I25.10 Atherosclerotic heart disease of native coronary artery without angina pectoris; G89.4 Chronic pain syndrome; K31.819 Angiodysplasia of stomach and duodenum without bleeding; H04.123 Dry eye syndrome of bilateral lacrimal glands; H26.9 Unspecified cataract; R73.9 Hyperglycemia, unspecified; Z66 Do not resuscitate; I70.0 Atherosclerosis of aorta; E78.00 Pure hypercholesterolemia, unspecified; Z53.31 Laparoscopic surgical procedure converted to open procedure; K20.8 Other esophagitis; J44.9 Chronic obstructive pulmonary disease, unspecified; F17.210 Nicotine dependence, cigarettes, uncomplicated; E87.6 Hypokalemia; K29.50 Unspecified chronic gastritis without bleeding; N40.0 Benign prostatic hyperplasia without lower urinary tract symptoms; B96.1 Klebsiella pneumoniae [K. pneumoniae] as the cause of diseases classified elsewhere; M54.5 Low back pain; M06.9 Rheumatoid arthritis, unspecified; G40.909 Epilepsy, unspecified, not intractable, without status epilepticus; N28.9 Disorder of kidney and ureter, unspecified; F39 Unspecified mood [affective] disorder; F41.9 Anxiety disorder, unspecified; Z51.5 Encounter for palliative care; Z99.3 Dependence on wheelchair; Y83.8 Other surgical procedures as the cause of abnormal reaction of the patient, or of later complication, without mention of misadventure at the time of the procedure; Z80.0 Family history of malignant neoplasm of digestive organs